=== PATIENT | female | born 1995 | race Caucasian/White ===

== ENCOUNTER → 2018-12-15 12:27 | Outpatient (CLI) | payer BC, SELFPAY ==
[2018-09-29 15:20] VITALS: BMI 20.1
[2018-12-15 13:48] LABS: hCG Titer Quant., Serum 171 mIU/mL (1-3)
== END ==
LOC: PAVLAB 12:28
PROVIDERS: Visit Provider Obstetrics & Gynecology
DX: Z34.90 Encounter for supervision of normal pregnancy, unspecified, unspecified trimester (principal)
CPT/HCPCS: 36415; 84702

== ENCOUNTER → 2018-12-17 12:32 | Outpatient (CLI) | payer BC, SELFPAY ==
[2018-09-29 15:20] VITALS: BMI 20.1
[2018-12-17 13:55] LABS: hCG Titer Quant., Serum 343 mIU/mL (1-3)
== END ==
LOC: PAVLAB 12:34
PROVIDERS: Visit Provider Obstetrics & Gynecology
DX: Z34.90 Encounter for supervision of normal pregnancy, unspecified, unspecified trimester (principal)
CPT/HCPCS: 36415; 84702

== ENCOUNTER → 2019-01-14 11:41 | Outpatient (CLI) | payer BC, SELFPAY ==
[2019-01-14 11:00] VITALS: BMI 20.1
[2019-01-14 13:00] LABS: hCG Titer Quant., Serum 4822 mIU/mL (1-3)
[2019-01-14 16:10] LABS: Chlamydia Trachomatis by PCR Negative (Negative); Neisserai gonorrhoeae by PCR Negative (Negative); Probe Check PASS; Sample Adequacy Control PASS; Specimen Processing Control PASS
[2019-01-20 16:08] LABS: HPV APTIMA, High Risk Negative (Negative)
[2019-01-20 16:09] LABS: HPV Reflexed? YES, CHARGE PATIENT
== END ==
PROVIDERS: Referring Provider Nurse Practitioner Women's Health; Visit Provider Nurse Practitioner Women's Health
DX: O20.0 Threatened abortion (principal); Z12.4 Encounter for screening for malignant neoplasm of cervix
CPT/HCPCS: 36415; 84702; 86850; 86900; 87491; 87591; 87624; 88175; G0145

== ENCOUNTER 2019-10-07 20:33 | Emergency (ER) | payer MEDICAID, SELFPAY ==
[2019-01-21 16:36] VITALS: BMI 20.1
[2019-10-07 20:34] VITALS: BP 132/81; PULSE 100; RESP 18; TEMP 35.8; O2SAT 96; BMI 20.2
--- NOTE | 2019-10-07 20:34 | US_ITS ---
STUDY: FIRST TRIMESTER OBSTETRICAL ULTRASOUND REASON FOR EXAM: Female, 24 years old. Pelvic pain. LMP: Unknown. TECHNIQUE: Transvaginal PRIOR ULTRASOUND: None. FINDINGS: There is no demonstrated intrauterine gestational sac. There is no demonstrated yolk sac. There is no demonstrated embryo ( pole). The uterus measures 7.3 x 5.3 x 4.8 cm. The endometrium measures 1.3 cm. There is no demonstrated uterine fibroid. The cervix is closed. The right ovary measures 2.8 x 2.2 x 1.9 cm. There is no right ovarian cyst. There is no visualized right adnexal mass or complex lesion. The left ovary measures 3.7 x 2.3 x 1.9 cm. There is a 1.9 x 1.7 x 1.6 cm cyst in the left ovary. There is no visualized left adnexal mass or complex lesion. There is small volume fluid in the cul de sac. US/Transvaginal w/Preg US IMPRESSION: No intrauterine gestation identified. No adnexal mass identified. These findings may be due to an early intrauterine gestation, a nonvisualized ectopic or a spontaneous . Follow-up sonography and beta hCG levels are recommended. Left ovarian cyst. Small amount of pelvic free fluid. Electronically Signed: James Diallo, at 21:35 EST Tel , Service support ,
[2019-10-07] MEDS: Ondansetron ODT 4 MG Tablet PO (21:20)
[2019-10-07] MEDS: Acetaminophen 500 MG Tablet 1000 MG PO (21:23)
[2019-10-07] MEDS: Nitrofurantoin Macrocrystals 100 MG Capsule PO (21:23)
--- NOTE | 2019-10-07 21:47 | ED.DCSUM_ITS ---
- ER Visit Summary Date of Service: 10/07/19 Chief Complaint: Pelvic pain History of Present Illness: The patient is a [address] Rui Mclaughlin. She is a G2, P0 whose last menstrual period was September 08. She was seen at another emergency department and had a positive test. She was sent h ere for ultrasound. Patient reports she has pelvic pain that began 2 weeks ago. To continuous waxing and waning pain that she describes as aching. It is 8 out of 10 at worst and 5-10 currently. Is worsened by not urinating. It is relieved by water. Denies any vaginal bleeding or discharge. She is had dysuria and frequency for the past 2 weeks. She denies any fever, chills, or vomiting. Physical Examination: Vitals: Stable. Afebrile. General: Well-nourished and well-developed. Head: Normocephalic atraumatic. Neck: Supple, no lymphadenopathy. No JVD. Nontender. Cardiovascular: Regular rate and rhythm. No murmurs. Respiratory: No respiratory distress. Clear to auscultation bilaterally. Abdominal: Soft, mild suprapubic tenderness to palpation, nondistended, normal bowel sounds. No guarding, rebound, or peritoneal signs. Back: Nontender. Extremities: Nontender, no edema. Skin: Normal color, no rash. Neurologic: Alert and oriented ?3. Cranial nerves II through XII are intact. Normal strength and sensation. Psych: Normal affect. Test Results: Quantitative hCG from the other hospital was 531. Blood type peers be positive. UA from the other hospital shows greater than 100 whites, 13-20 reds, and 6-12 epithelial cells. Clinical Impression(s) from Imaging Studies Obstetrics Ultrasound 10/07/19 20:34 IMPRESSION: No intrauterine gestation identified. No adnexal mass identified. These findings may be due to an early intrauterine gestation, a nonvisualized ectopic or a spontaneous . Follow-up sonography and beta hCG levels are recommended. Left ovarian cyst. Small amount of pelvic free fluid. Electronically Signed: James Diallo, at 21:35 EST Tel , Service support , Emergency Department Course and Treatment: Patient had a urine sent for culture. She was given a dose of Tylenol, Zofran, and Macrobid p.o. She is resting comfortably. Treatment Plan: Patient was discussed with Dr. Rui Mclaughlin. She will be scheduled for a repeat quant in 48 hours. She will get a call from Dr. Rui Mclaughlin regarding the results of this. If this is doubling appropriately the patient will follow-up with Dr. Rui Mclaughlin in 3 to 4 weeks. If it is not doubling she will see her for further evaluation and treatment. Patient be discharged with Zofran and Macrobid. Return to the emergency department for any worsening symptoms. Disposition: To home in improved and stable condition. Impression: 1. UTI. 2. First trimester . This note was generated with [employer] dictation software. It may contain incorrect words, spelling, and punctuation that were not noted in review of the chart prior to signing ED Disposition - Plan for ED Patient: Disposition: Home or Assisted Living Instructions: , New Dx Referrals: Cary Gandara MD [STAFF PHYSICIAN] - Additional Instructions: Follow up with Dr. Gandara in 3-4 weeks.
--- NOTE | 2019-10-08 09:31 | ED.RN ---
CALLED TO [facility]. ZOFRAN 4 MG Q 8 PRN ODT #10 AND MACROBID BID X 7 DAYS NUMBER [id number]
== END 2019-10-07 22:29 | disposition home or self-care (01) ==
LOC: ED 21:42
PROVIDERS: Emergency Provider Emergency Medicine
DX: O23.41 Unspecified infection of urinary tract in pregnancy, first trimester (principal); O34.81 Maternal care for other abnormalities of pelvic organs, first trimester; N83.202 Unspecified ovarian cyst, left side; O99.331 Smoking (tobacco) complicating pregnancy, first trimester; Z3A.00 Weeks of gestation of pregnancy not specified
CPT/HCPCS: 76817; 87086; 87088; 87186; 99283

== ENCOUNTER → 2019-10-10 14:56 | Outpatient (CLI) | payer MEDICAID, SELFPAY ==
[2019-10-07 20:34] VITALS: BMI 20.2
[2019-10-10 16:06] LABS: hCG Titer Quant., Serum 1991 mIU/mL (1-3)
== END ==
PROVIDERS: Visit Provider Emergency Medicine
DX: Z34.90 Encounter for supervision of normal pregnancy, unspecified, unspecified trimester (principal)
CPT/HCPCS: 36415; 84702

== ENCOUNTER → 2019-10-13 16:10 | Outpatient (CLI) | payer MEDICAID, SELFPAY ==
[2019-10-07 20:34] VITALS: BMI 20.2
[2019-10-13 17:25] LABS: hCG Titer Quant., Serum 5722 mIU/mL (1-3)
== END ==
PROVIDERS: Referring Provider Obstetrics & Gynecology; Visit Provider Obstetrics & Gynecology
DX: O20.0 Threatened abortion (principal)
CPT/HCPCS: 36415; 84702

== ENCOUNTER → 2019-11-05 15:37 | Outpatient (CLI) | payer MEDICAID, SELFPAY ==
[2019-11-05 14:17] VITALS: BMI 20.2
[2019-11-05 17:03] LABS: Amphetamine Urine VISTA NEGATIVE (<1000 ng/mL); Barbiturate Urine VISTA NEGATIVE (< 200 ng/mL); Benzodiazepine Urine VISTA NEGATIVE (< 200 ng/mL); Cocaine Urine VISTA NEGATIVE (< 300 ng/mL); Ecstacy Urine VISTA NEGATIVE (< 500 ng/mL); Methadone Urine VISTA NEGATIVE (< 300 ng/mL); PCP Urine VISTA NEGATIVE (< 25 ng/mL); THC Urine VISTA NEGATIVE (< 50 ng/mL); Vista UDS pH Range 8
[2019-11-05 19:34] LABS: Chlamydia Trachomatis by PCR Negative (Negative); Neisserai gonorrhoeae by PCR Negative (Negative); Probe Check PASS; Sample Adequacy Control PASS; Specimen Processing Control PASS
== END ==
PROVIDERS: Referring Provider Obstetrics & Gynecology; Visit Provider Obstetrics & Gynecology
DX: Z34.90 Encounter for supervision of normal pregnancy, unspecified, unspecified trimester (principal)
CPT/HCPCS: 80307; 87077; 87086; 87088; 87186; 87491; 87591

== ENCOUNTER → 2019-11-19 10:06 | Outpatient (CLI) | payer MEDICAID, SELFPAY ==
[2019-11-05 14:17] VITALS: BMI 20.2
[2019-11-19 10:40] LABS: Absolute Lymphocyte Count 2.47 X10^3/uL (0.83-4.51); Absolute Neutrophil Count 4.2 X10^3/uL (2.0-7.7); Basophil# 0.02 X10^3/uL; Basophil% 0.3 % (0-1); Eosinophil# 0.16 X10^3/uL; Eosinophils% 2.2 % (0-5); Hematocrit 35.1 % (37-47); Hemoglobin 12.2 g/dL (12.0-15.0); Lymphocyte # 2.47 X10^3/ul (4.0); Lymphocyte % 33.3 % (19-41); Mean Corp Hgb Conc 34.8 g/dL (32-36); Mean Corpuscular Hgb 30.3 pg (27.0-32.0); Mean Corpuscular Volume 87.3 fL (81-99); Mean Platelet Vol. 10.3 fl (6.2-12.0); Monocyte# 0.51 X10^3/uL; Monocyte% 6.9 % (0-10); NRBC Flagged by Analyzer 0 % (0-5); Neutrophil # 4.23 X10^3/uL (2.7-7.7); Neutrophil % 56.9 % (47-70); Platelet Count 201 K/mm3 (150-450); RBC Distribution Width CV 11.5 % (11.6-14.6); RBC Distribution Width SD 36.9 fl (35.1-43.9); Red Blood Count 4.02 M/mm3 (4.2-5.4); White Blood Count 7.4 K/mm3 (4.4-11.0)
[2019-11-19 12:04] LABS: HIV - WCH Non-Reactive (Nonreactive); Hepatitis B Surface Antigen Non-Reactive (Nonreactive); Hepatitis C Antibody Non-Reactive (Nonreactive); Rubella IgG 40.2 IU/mL
[2019-11-25 23:59] LABS: Rapid Plasmin Reagin (RPR) NONREACTIVE (NONREACTIVE)
== END ==
PROVIDERS: Referring Provider Obstetrics & Gynecology; Visit Provider Obstetrics & Gynecology
DX: Z34.90 Encounter for supervision of normal pregnancy, unspecified, unspecified trimester (principal)
CPT/HCPCS: 36415; 85025; 86592; 86703; 86762; 86803; 86850; 86900; 86901; 87340

== ENCOUNTER → 2020-01-28 | Outpatient (CLI) | payer MEDICAID, SELFPAY ==
[2020-01-28 14:50] VITALS: BMI 20.2
== END | disposition home or self-care (01) ==
LOC: LABSPEC 16:54
PROVIDERS: Referring Provider Obstetrics & Gynecology; Visit Provider Obstetrics & Gynecology
DX: O23.40 Unspecified infection of urinary tract in pregnancy, unspecified trimester (principal); Z3A.00 Weeks of gestation of pregnancy not specified
CPT/HCPCS: 87086; 87088

== ENCOUNTER → 2020-03-24 14:56 | Outpatient (CLI) | payer MEDICAID, SELFPAY ==
[2020-02-25 15:35] VITALS: BMI 20.2
[2020-03-24 15:36] LABS: Absolute Lymphocyte Count 1.88 X10^3/uL (0.83-4.51); Basophil# 0.03 X10^3/uL; Basophil% 0.4 % (0-1); Eosinophil# 0.12 X10^3/uL; Eosinophils% 1.6 % (0-5); Hematocrit 32.2 % (37-47); Hemoglobin 10.7 g/dL (12.0-15.0); Lymphocyte # 1.88 X10^3/ul (4.0); Lymphocyte % 24.4 % (19-41); Mean Corp Hgb Conc 33.2 g/dL (32-36); Mean Corpuscular Hgb 31.2 pg (27.0-32.0); Mean Corpuscular Volume 93.9 fL (81-99); Mean Platelet Vol. 10.7 fl (6.2-12.0); Monocyte# 0.54 X10^3/uL; NRBC Flagged by Analyzer 0 % (0-5); Neutrophil # 5.01 X10^3/uL (2.7-7.7); Platelet Count 165 K/mm3 (150-450); RBC Distribution Width CV 12.7 % (11.6-14.6); Red Blood Count 3.43 M/mm3 (4.2-5.4); White Blood Count 7.7 K/mm3 (4.4-11.0)
[2020-03-24 15:55] LABS: Glucose Challenge Gest 1H 50g 113 mg/dL (70-140)
== END ==
PROVIDERS: Referring Provider Obstetrics & Gynecology; Visit Provider Obstetrics & Gynecology
DX: Z34.90 Encounter for supervision of normal pregnancy, unspecified, unspecified trimester (principal); Z13.1 Encounter for screening for diabetes mellitus
CPT/HCPCS: 36415; 82950; 85025

== ENCOUNTER → 2020-05-20 | Outpatient (CLI) | payer MEDICAID, SELFPAY ==
[2020-05-20 09:32] VITALS: BMI 27.8
== END | disposition home or self-care (01) ==
LOC: LABSPEC 12:54
PROVIDERS: Referring Provider Obstetrics & Gynecology; Visit Provider Obstetrics & Gynecology
DX: Z34.90 Encounter for supervision of normal pregnancy, unspecified, unspecified trimester (principal)
CPT/HCPCS: 87081

== ENCOUNTER → 2020-05-27 14:57 | Outpatient (CLI) | payer MEDICAID, SELFPAY ==
[2020-05-27 13:56] VITALS: BMI 28.5
[2020-05-27 15:13] LABS: Absolute Lymphocyte Count 2.14 X10^3/uL (0.83-4.51); Absolute Neutrophil Count 5.4 X10^3/uL (2.0-7.7); Basophil# 0.02 X10^3/uL; Basophil% 0.2 % (0-1); Eosinophil# 0.12 X10^3/uL; Eosinophils% 1.4 % (0-5); Hematocrit 35.7 % (37-47); Lymphocyte # 2.14 X10^3/ul (4.0); Lymphocyte % 25.4 % (19-41); Mean Corp Hgb Conc 33.6 g/dL (32-36); Mean Corpuscular Hgb 31.4 pg (27.0-32.0); Mean Corpuscular Volume 93.5 fL (81-99); Mean Platelet Vol. 11.9 fl (6.2-12.0); Monocyte# 0.63 X10^3/uL; Monocyte% 7.5 % (0-10); NRBC Flagged by Analyzer 0 % (0-5); Neutrophil # 5.42 X10^3/uL (2.7-7.7); Neutrophil % 64.5 % (47-70); Platelet Count 147 K/mm3 (150-450); RBC Distribution Width CV 12.8 % (11.6-14.6); RBC Distribution Width SD 42.9 fl (35.1-43.9); Red Blood Count 3.82 M/mm3 (4.2-5.4); White Blood Count 8.4 K/mm3 (4.4-11.0)
[2020-05-27 15:23] LABS: Protein, Urine (Random) 23.9 mg/dL (<11.9); Protein:Creat Ratio 159 mg/g CRE (0-200)
[2020-05-27 15:28] LABS: ALB/GLOB Ratio 0.7 RATIO (0.9-2.4); AST(SGOT) 16 U/L (15-37); Alanine Aminotransfer ALT/SGPT 14 U/L (13-56); Albumin, Serum 2.9 g/dL (3.2-5.0); Alkaline Phosphatase 168 U/L (45-117); Anion Gap 7 (5-15); BUN 11 mg/dL (7-18); BUN/Creat Ratio 13.8 RATIO (10-20); Chloride 110 mmol/L (98-107); EST Glomerular Filtration Rate 94 mL/min (>60); Est Glom Filt Rate - Afr Amer 114 mL/min (>60); Globulin 3.9 g/dL (2.2-4.2); Glucose 87 mg/dL (74-106); Protein, Total 6.8 g/dL (6.4-8.2); Sodium Level 142 mmol/L (136-145)
== END ==
LOC: LABSPEC 14:59 → LAB 15:04
PROVIDERS: Referring Provider Obstetrics & Gynecology; Visit Provider Obstetrics & Gynecology
DX: O16.3 Unspecified maternal hypertension, third trimester (principal)
CPT/HCPCS: 36415; 80053; 82570; 84156; 85025

== ENCOUNTER 2020-05-30 13:40 | Outpatient (CLI) | payer MEDICAID, SELFPAY ==
[2020-05-30 14:04] VITALS: BMI 28.9
[2020-05-30 14:44] VITALS: BP 129/79; PULSE 87
[2020-05-30 14:55] VITALS: BP 120/80; PULSE 103
[2020-05-30 14:56] LABS: Protein, Urine (Random) 18.3 mg/dL (<11.9); Protein:Creat Ratio 212 mg/g CRE (0-200)
[2020-05-30 15:06] VITALS: BP 131/83; PULSE 79
--- NOTE | 2020-05-30 15:14 | OB.TRI.PN_ITS ---
Progress Notes Date of Service: 05/30/20 Progress Note: Patient presents for triage evaluation secondary to elevated bp in office. repeats all normal in triage no proteinuria. FHT: 130 Moderate variability reactive no decelerations category I tracing [place]: no regular Contractions Assessment and plan: elevated bps in - repeats normal, fu end of the week in the office. Reactive NST, reassuring maternal and status patient discharged to home . See problem list details for additional plan information. Laboratory Studies: Laboratory Tests 05/30/20 Range/Units 14:35 U Random Total Protein 18.3 H (<11.9) mg/dL Urine Creatinine 86.20 (NO RANGE EST.) mg/dL Protein/Creatinin Ratio 212 H (0-200) mg/g CRE - Problem List (1) Elevated blood pressure affecting in third trimester, antepartum Status: Acute Comment: 05/30-bp elevated in office but all WNL upon monitoring in triage. neg proteinuria. fu end of the week. Multi Select Codes - Urinary/Genital Urinary/Genital CPT Codes: 89557-67 non-stress test Interp
== END 2020-05-30 15:20 | disposition home or self-care (01) ==
PROVIDERS: Referring Provider Obstetrics & Gynecology; Visit Provider Obstetrics & Gynecology
DX: O26.90 Pregnancy related conditions, unspecified, unspecified trimester (principal); R03.0 Elevated blood-pressure reading, without diagnosis of hypertension; Z3A.00 Weeks of gestation of pregnancy not specified
CPT/HCPCS: 59025; 59050; 82570; 84156; 99218; G0378

== ENCOUNTER 2020-06-02 11:35 | Outpatient (CLI) | payer MEDICAID, SELFPAY ==
[2020-06-02] VITALS (11 sets, daily range): BP systolic 117–128; BP diastolic 73–81; PULSE 76–100; TEMP 36.8; O2SAT 98; BMI 19.2; BMI 28.8
[2020-06-02] MEDS: Acetaminophen 500 MG Tablet 1000 MG PO (12:21)
[2020-06-02 12:34] LABS: Hematocrit 35.2 % (37-47); Hemoglobin 11.7 g/dL (12.0-15.0); Mean Corp Hgb Conc 33.2 g/dL (32-36); Mean Corpuscular Hgb 30.9 pg (27.0-32.0); Mean Corpuscular Volume 92.9 fL (81-99); Mean Platelet Vol. 12.6 fl (6.2-12.0); Platelet Count 137 K/mm3 (150-450); RBC Distribution Width CV 12.4 % (11.6-14.6); RBC Distribution Width SD 42.2 fl (35.1-43.9); Red Blood Count 3.79 M/mm3 (4.2-5.4); White Blood Count 7.6 K/mm3 (4.4-11.0)
[2020-06-02 12:50] LABS: AST(SGOT) 21 U/L (15-37); Alanine Aminotransfer ALT/SGPT 21 U/L (13-56); Creatinine, Serum 0.62 mg/dL (0.55-1.02); EST Glomerular Filtration Rate 125 mL/min (>60); Est Glom Filt Rate - Afr Amer 152 mL/min (>60); Estimated Creatinine Clearance 110.66 ml/min; Uric Acid 4.7 mg/dL (2.6-6.0)
[2020-06-02 12:58] LABS: Protein, Urine (Random) 18.6 mg/dL (<11.9); Protein:Creat Ratio 310 mg/g CRE (0-200)
--- NOTE | 2020-06-02 13:08 | US_ITS ---
STUDY: SECOND AND THIRD TRIMESTER OBSTETRICAL ULTRASOUND REASON FOR EXAM: Female, 25 years old growth LMP: 09/08/2019 TECHNIQUE: Transabdominal TECHNICAL QUALITY: Adequate. PRIOR ULTRASOUND: None. FINDINGS: There is a single intrauterine fetus. The fetus is in a cephalic presentation. There is demonstrated cardiac activity with a heart rate of 129 bpm. There is a normal amniotic fluid volume. The largest amniotic fluid pocket measures 3.4 cm. The amniotic fluid index (NASIR) is 8.5 cm. The placenta is anterior in location and is not low lying. There are Grade 1 placental changes. The cervix measures 4.5 cm in length. The adnexal regions are not visualized. BIOMETRY: BPD: 9.37 cm: 38 weeks, 1 days HC: 33.99 cm: 39 weeks, 1 days AC: 37.03 cm: 41 weeks, 0 days FL: 7.5 cm: 38 weeks, 3 days CI: 80% FL/BPD: 80% FL/HC: FL/AC: 20% HC/AC: 0.92 age by current US: 39 weeks, 2 days. WAYLON by current US: 06/07/2020. Estimated weight: 3907 grams, +/- 570 grams, 93 %. Age by LMP: 38 weeks, 2 days. WAYLON by LMP: 06/14/2020. US/OB Limited With Biometrics IMPRESSION: Single live uterine gestation with a mean gestational age of 39 weeks and 2 days. Electronically Signed: Nas Faulkner, at 15:26 EDT , Service support ,
== END 2020-06-02 15:40 | disposition home or self-care (01) ==
PROVIDERS: Referring Provider Obstetrics & Gynecology; Visit Provider Obstetrics & Gynecology
DX: O16.3 Unspecified maternal hypertension, third trimester (principal); Z3A.39 39 weeks gestation of pregnancy
CPT/HCPCS: 36415; 59025; 59050; 76816; 82565; 82570; 84156; 84450; 84460; 84550; 85027; 99218; G0378

== ENCOUNTER 2020-06-03 14:53 | Outpatient (CLI) | payer MEDICAID, SELFPAY ==
[2020-06-02 12:05] VITALS: BMI 28.8
[2020-06-03] VITALS (7 sets, daily range): BP systolic 117–131; BP diastolic 74–85; PULSE 82–94; TEMP 37.1; O2SAT 98; BMI 28.9
[2020-06-03 15:21] LABS: Hematocrit 34.6 % (37-47); Hemoglobin 11.7 g/dL (12.0-15.0); Mean Corp Hgb Conc 33.8 g/dL (32-36); Mean Corpuscular Hgb 31.2 pg (27.0-32.0); Mean Corpuscular Volume 92.3 fL (81-99); Mean Platelet Vol. 12.3 fl (6.2-12.0); Platelet Count 132 K/mm3 (150-450); RBC Distribution Width CV 12.6 % (11.6-14.6); RBC Distribution Width SD 41.8 fl (35.1-43.9); Red Blood Count 3.75 M/mm3 (4.2-5.4); White Blood Count 6.9 K/mm3 (4.4-11.0)
[2020-06-03 15:47] LABS: AST(SGOT) 16 U/L (15-37); Alanine Aminotransfer ALT/SGPT 16 U/L (13-56); Creatinine, Serum 0.64 mg/dL (0.55-1.02); EST Glomerular Filtration Rate 121 mL/min (>60); Est Glom Filt Rate - Afr Amer 146 mL/min (>60); Uric Acid 4.8 mg/dL (2.6-6.0)
[2020-06-03 16:24] LABS: Protein, Urine (Random) 25.2 mg/dL (<11.9); Protein:Creat Ratio 175 mg/g CRE (0-200)
--- NOTE | 2020-06-03 17:55 | OB.TRI.PN ---
Progress Notes Date of Service: 06/03/20 Progress Note: Patient presents for triage evaluation secondary to elevated blood pressures. Patient reports blood pressures have become increasingly elevated at home. Denies headaches, blurred vision, right upper quadrant, epigastric pain. Blood pressures all normotensive while in triage. Preeclampsia labs negative. Urine protein to creatinine negative which is a change from her last protein to creatinine ratio which was slightly elevated. FHT: Moderate variability reactive no decelerations category I tracing [place]: Irregular contractions Assessment and plan: Reactive NST, reassuring maternal and status patient discharged to home to follow-up in the office on Saturday. See problem list details for additional plan information. Laboratory Studies: Laboratory Tests 06/03/20 06/03/20 06/03/20 Range/Units 15:40 15:10 15:10 WBC 6.9 (4.4-11.0) K/mm3 RBC 3.75 L (4.2-5.4) M/mm3 Hgb 11.7 L (12.0-15.0) g/dL Hct 34.6 L (37-47) % MCV 92.3 (81-99) fL MCH 31.2 (27.0-32.0) pg MCHC 33.8 (32-36) g/dL RDW Std Deviation 41.8 (35.1-43.9) fl RDW Coeff of Cosme 12.6 (11.6-14.6) % Plt Count 132 L (150-450) K/mm3 MPV 12.3 H (6.2-12.0) fl Creatinine 0.64 (0.55-1.02) mg/dL Estim Creat Clear Calc 107.20 ml/min Est GFR (MDRD) Af Amer 146 (>60) mL/min Est GFR (MDRD) Non-Af 121 (>60) mL/min Uric Acid 4.8 (2.6-6.0) mg/dL AST 16 (15-37) U/L ALT 16 (13-56) U/L U Random Total Protein 25.2 H (<11.9) mg/dL Urine Creatinine 144.00 (NO RANGE EST.) mg/dL Protein/Creatinin Ratio 175 (0-200) mg/g CRE - Problem List (1) Elevated blood pressure affecting in third trimester, antepartum Status: Acute Comment: mildly elevated in office but nl at home and in triage- repeat triage evaluation 06/02. preeclampsia precautions reviewed. Multi Select Codes - Urinary/Genital Urinary/Genital CPT Codes: 77558-04 non-stress test Interp
== END 2020-06-03 16:40 | disposition home or self-care (01) ==
LOC: WPOUT 14:54 → OBT 14:54
PROVIDERS: Referring Provider Obstetrics & Gynecology; Visit Provider Obstetrics & Gynecology
DX: O75.89 Other specified complications of labor and delivery (principal); R03.0 Elevated blood-pressure reading, without diagnosis of hypertension; Z3A.00 Weeks of gestation of pregnancy not specified
CPT/HCPCS: 36415; 59025; 59050; 82565; 82570; 84156; 84450; 84460; 84550; 85027; 99218; G0378

== ENCOUNTER 2020-06-06 00:55 | Inpatient (IN) | payer MEDICAID, SELFPAY ==
[2020-06-03 15:32] VITALS: BMI 28.9
[2020-06-05 23:37] VITALS: BP 140/89; PULSE 93
[2020-06-05 23:38] VITALS: TEMP 36.8
[2020-06-05] MEDS: Lactated Ringers 1,000 ML 50 ML IV (23:45)
[2020-06-05 23:52] VITALS: BP 123/83; PULSE 102
[2020-06-05 23:53] VITALS: BP 127/85; PULSE 93
[2020-06-05 23:54] LABS: Hematocrit 33.9 % (37-47); Hemoglobin 11.6 g/dL (12.0-15.0); Mean Corp Hgb Conc 34.2 g/dL (32-36); Mean Corpuscular Hgb 31.9 pg (27.0-32.0); Mean Corpuscular Volume 93.1 fL (81-99); Mean Platelet Vol. 12.1 fl (6.2-12.0); Platelet Count 143 K/mm3 (150-450); RBC Distribution Width CV 12.5 % (11.6-14.6); RBC Distribution Width SD 42.8 fl (35.1-43.9); Red Blood Count 3.64 M/mm3 (4.2-5.4); White Blood Count 7.1 K/mm3 (4.4-11.0)
[2020-06-05 23:56] VITALS: BMI 29.5
[2020-06-06] VITALS (53 sets, daily range): BP systolic 110–152; BP diastolic 64–95; PULSE 66–127; RESP 14–18; TEMP 36–37.3; O2SAT 97–99
[2020-06-06 00:05] LABS: Protein, Urine (Random) 21.7 mg/dL (<11.9); Protein:Creat Ratio 250 mg/g CRE (0-200); Prothrombin Time (Protime)PT. 12.4 SECONDS (11.7-14.9)
[2020-06-06 00:06] LABS: Partial Thromboplast Time 25.8 Seconds (24.1-36.2)
[2020-06-06 00:09] LABS: AST(SGOT) 16 U/L (15-37); Alanine Aminotransfer ALT/SGPT 21 U/L (13-56); Creatinine, Serum 0.72 mg/dL (0.55-1.02); EST Glomerular Filtration Rate 106 mL/min (>60); Est Glom Filt Rate - Afr Amer 129 mL/min (>60); Estimated Creatinine Clearance 95.29 ml/min; Uric Acid 4.5 mg/dL (2.6-6.0)
--- NOTE | 2020-06-06 00:49 | PCM.HPOB.BLA ---
- Problem List (1) Gestational hypertension Status: Acute (2) Anemia affecting Status: Acute Comment: iron supplement, repeat CBC end of april (3) PUPP (pruritic urticarial papules and plaques of ) Status: Acute Comment: steroid cream PRN (4) Status: Acute Qualifiers: Comment: NIPT- low risk. Carrier negative . BF Wvtuz-4-Sfnietqpqsj negative. declined ntd screening. nl anatomy (5) Supervision of normal Status: Acute Qualifiers: Comment: PRR WAYLON 06/14/20 boy Beck BF Jamir (6) UTI in Status: Acute Comment: x 2, recommend daily prophylaxis. keflex ordered 12/17. needs repeat culture. ?recurrent yeast infections- clotrimazole ordered. History and Physical Date of Admission: 06/06/20 Intake Vital Signs 06/02/20 Height 6 ft 4 in 06/02/20 Weight: 158 lb Intake Visit Reasons: 38 WK OB Chief Complaint: est ob Prototype Fabricator Required: No Is patient in pain?: No Allergies No Known Allergies Allergy (Verified 06/02/20 11:08) Medications promethazine 12.5 mg tablet 12.5 mg PO Q6H PRN #60 tab 01/14/19 Rx Confirmed 06/02/20 vitamin#30 30 mg iron-10 mg iron-folic acid 1 mg-omg3 capsule 1 cap PO DAILY 11/05/19 history Confirmed 06/02/20 clotrimazole 2 % vaginal cream 1 appful VAGINAL QHS 7 Days #21 g 01/28/20 Rx Confirmed 06/02/20 loratadine 10 mg tablet 10 mg PO DAILY 01/28/20 history Confirmed 06/02/20 cephalexin 250 mg capsule 250 mg PO Q12H 04/20/20 history Confirmed 06/02/20 Last Menstral Period: 11/18/18 Zika: Zika virus screening: Negative : No PFSH PFSH Medical History History of anxiety (Acute) History of depression (Acute) Family History Grandmother Diabetes Breast cancer Grandfather Diabetes Levja-8-elxwqhtehir deficiency Social History (Updated 06/02/20 @ 11:[address] Cary Jackson MD) Smoking Status: Current every day smoker Electronic Cigarette Use: with nicotine alcohol intake: never substance use type: does not use caffeine: Yes (rarely) what type of physical activity do you participate in: walking, other details: 20,000 steps per day seatbelt use: always do you feel safe at home: Yes additional social history: Boyfriend-Gerardo Goodson Patient works at [employer] Pregancy History 2 Elective abortions Hx Para 0 Spontaneous abortions 1 Hx # Term Pregnancies Ectopic pregnancies Hx # Pregnancies Multiple births # of living children 0 HPI 38 WK OB: Details: ELIANA GUILLEN is a 25 year old G2, P0 at 38 weeks 6 days presents with elevated blood pressures 140s to 160s over 80s at home headache and blurry vision in the left eye. Upon evaluation patient does not have any clonus and repeat blood pressures are in the 130s over 80s. Headache is intermittent. Patient has been evaluated closely the last week due to rising blood pressures. Over the last 3 days blood pressures have been consistently elevated at home and therefore she presented to triage for evaluation. OB Visit WAYLON Calculator Estimated Delivery Date Method Current WG Current Estimate 06/14/20 LMP (Certain) 38w 2d Expected Delivery Route/Plan Labor Preferences- CB/BF classes: took online labor support person: Jamir labor intervention preferences: no specifics. pain management options preferred: likely planning epidural cut cord/dad catch: yes : yes PP control planned: NFP discussed possible routes of delivery and associated risks: discussed possible delivery modalities and possible indications for each including R/B/A of , VAVD, and CS. questions answered. special requests: none Specific Issue/Plans flu vaccine: declines tdap vaccine: given 03/24 rhogam: na LARC form signed: declines movement and labor precautions reviewed. Problem list reviewed and updated with the most current plan of care details and appropriate orders placed. Relevant counseling for the gestational age provided. Continue routine care and follow up unless otherwise noted in visit notes/problem list details Initial Weight: 108 lb Date EGA Weight BP Urine Prot Glucose FHR FuHt Pres Dilation Effaced St Visit Note 12/18/19 14w 3d 110 lb (+2 lb) 106/60 Negative Negative 145 SM- no vb lof no regular ctx 01/28/20 20w 2d 119 lb (+11 lb) 118/76 150 SM- no vb lof no regular ctx had anatomy 02/25/20 24w 2d 127 lb 8 oz (+19 lb 8 oz) 118/78 Negative Negative 150 SM- no vb lof good fm no regular ctx 03/24/20 28w 2d 133 lb (+25 lb) 120/84 145 28 SM- no vb lof good fm no regular ctx discussed anemia. co some hemorrhoids, discussed scheudling childbirth classes 04/08/20 30w 3d 139 lb 2 oz (+31 lb 2 oz) 112/72 Negative Negative 140 30 SM- no vb lof good f mno regular ctx 04/20/20 32w 1d 141 lb 4 oz (+33 lb 4 oz) 124/78 Negative Negative 140 32 GP - no LOF, VB, DFM, ctx. Discussed childbirth classes. Discussed finding Peds. 05/06/20 34w 3d 145 lb (+37 lb) 122/82 Negative Negative 135 34 SM- no vb lof good fm no regular ctx started with an abdominal rash discussed supportive care 05/20/20 36w 3d 152 lb 4 oz (+44 lb 4 oz) 122/80 Negative Negative 140 36 Cephalic 0 SM- no vb of good fm no regular ctxgbs collected 05/27/20 37w 3d 156 lb 6 oz (+48 lb 6 oz) 130/92 Negative Negative 140 37 Cephalic 0 GP - no LOF, VB, DFM, ctx. BP elevated. Asymptomatic. Labs ordered. BP check saturday if labs normal. Precautions reviewed. 05/30/20 37w 6d 148/90 GP - BP check only. Patient sent to triage for elevated BP. 06/02/20 38w 2d 158 lb (+50 lb) Trace Negative 38 Cephalic 0 SM- nl bps at home but borderline elevated here, to triage for evaluation. had nl protein level saturday, trace today. reveiwed precautions and if negative evaluation recommend twice weekly visits and home bp monitoring ACOG First Trimester First Trimester: Desire for , Alcohol, Tobacco Cessation, Illicit/Recreational Drug/Substance Use, Intimate Partner Violence, Barriers to care, Unstable Housing, Communication Barriers, Environmental/Work Hazards, Anticipated Course of Care, Toxoplasmosis Precations, Use of Any medications, Sexual activity, Exercise, Dental Care, Sauna/Hot tub use, Seat Belt use, Childbirth classes/Hospital facilities, Travel, Indications for US and Screening for Aneuploidy; discussed Diagnostics Diagnostics Diagnostics Glucose 1 Hr 50 gm 113 mg/dL (70-140) 03/24/20 Hgb 12.0 g/dL (12.0-15.0) 05/27/20 Hct 35.7 % (37-47) L 05/27/20 Details: HIV: Urine Culture: Sequential Screen: NIPT Screen: ROS Const Reports system reviewed and no additional complaints, except as documented Card Reports system reviewed and no additional complaints, except as documented Resp Reports system reviewed and no additional complaints, except as documented GI Reports system reviewed and no additional complaints, except as documented, Reports nausea Reports system reviewed and no additional complaints, except as documented Musc Reports system reviewed and no additional complaints, except as documented all other systems reviewed and negative Exam Const General: cooperative, healthy appearing, comfortable HENMT Head: normal to inspection Nose: external nose normal Face and sinus: normal facial exam Neck Neck: normal visual inspection, full ROM, no lymphadenopathy Thyroid: thyroid normal Chest Chest palpation & inspection: normal inspection of the chest Resp Effort & Inspection: normal respiratory effort GI Inspection: normal to inspection Palpation: soft, other (gravid uterus) Other: vertex and large size for gestational age- approx 3900g on US saturday Other: Cervical Exam: 1.5/40/-4 Extrem General: pedal edema Results POC Urinalysis 2 Dip (Clinic) Office Urine Glucose Negative Last Edit by Pat Kern on 06/02/20 11:15 Office Urine Protein Trace Last Edit by Pat Kern on 06/02/20 11:15 Assessment & Plan Problems 1. Elevated blood pressure affecting in third trimester, antepartum O16.3 mildly elevated in office but nl at home and in triage- repeat triage evaluation 06/02. preeclampsia precautions reviewed. 2. 37 weeks gestation of Z3A.37 covid testing ordered 05/25/20c 3. PUPP (pruritic urticarial papules and plaques of ) O26.86 steroid cream PRN 4. Anemia affecting O99.019 iron supplement, repeat CBC end of april 5. UTI in O23.40 x 2, recommend daily prophylaxis. keflex ordered 12/17. needs repeat culture. ?recurrent yeast infections- clotrimazole ordered. 6. Supervision of normal Z34.90 PRR WAYLON 06/14/20 boy Beck BF Jamir 7. Z34.90 NIPT- low risk. Carrier negative . BF Wlokk-9-Zltwbjgpbgu negative. declined ntd screening. nl anatomy 25-year-old G2, P0 at 38 weeks 6 days presents with gestational hypertension, increasing bps at home and symptomatic plan IOL, plan management for with Cytotec and then Pitocin Pain management: Plans epidural. GBS negative. Management of any complications: Gestational hypertension, labs stable. Monitor blood pressures. start magnesium sulfate and HTN protocol if develops severe range pressures. I have reviewed the [facility] and made any clinically relevant updates. Orders Orders: POC Urinalysis 2 Dip (Clinic) Today Protein+Creatinine Ratio,Urine Today O16.3 Coding Level of Care Code Off vis,est,level 3 Diagnoses Elevated blood pressure affecting in third trimester, antepartum O16.3 37 weeks gestation of Z3A.37 PUPP (pruritic urticarial papules and plaques of ) O26.86 Anemia affecting O99.019 UTI in O23.40 Supervision of normal Z34.90 Z34.90
[2020-06-06] MEDS: miSOPROStol 25 MCG TABLET PO (01:33)
[2020-06-06] MEDS: Acetaminophen 325 MG Tablet PO (02:22)
[2020-06-06] MEDS: miSOPROStol 50 MCG TABLET PO (05:26)
[2020-06-06] MEDS: Oxytocin 30 units/NS 500 ml 30 UNITS/500 ML IV.SOLN IV (11:34)
[2020-06-06] MEDS: 0.9% Normal Saline Single 100 ML IV.SOLN. IY (12:23)
[2020-06-06] MEDS: Lactated Ringers 500 ML 999 ML IV ×2 (13:15→16:50)
[2020-06-06] MEDS: fentaNYL-bupivacaine (epidural) 100 ML BAG EPIDURAL (13:51)
[2020-06-06] MEDS: Lactated Ringers 1,000 ML 200 ML IV (14:27)
--- NOTE | 2020-06-06 16:29 | PN_ITS ---
Progress Note patient comfortable with epidural, doing well current tracing: overall reassuring FHT: 130 Moderate variability reactive 2 periodic mild variable decelerations after clear AROM, category II tracing position change [place]: q 2-3 Contractions reviewed tracing abnormalities since last note: cat I-II overall reassuring A/P: s/p position change, resolved to early decel. continue exp management pit per protocol STROKE Vital Signs/Narrative: Vital Signs Temp Pulse BP 06/06/20 15:59 97.9 F 69 130/78 H 06/06/20 14:56 66 130/79 H 06/06/20 14:31 85 123/73 H 06/06/20 14:27 78 126/76 H 06/06/20 14:22 71 128/70 H 06/06/20 14:17 83 117/64 06/06/20 14:15 95 128/70 H 06/06/20 14:12 93 136/80 H 06/06/20 14:06 95 129/76 H 06/06/20 14:05 97.9 F 06/06/20 14:01 103 H 130/78 H 06/06/20 14:00 90 129/74 H 06/06/20 13:57 84 132/75 H 06/06/20 13:52 87 137/83 H 06/06/20 13:47 92 139/86 H 06/06/20 13:41 90 145/88 H 06/06/20 13:37 85 152/90 H 06/06/20 13:10 78 136/83 H
[2020-06-06] MEDS: Cefazolin 2 GM in 0.9% Normal Saline 100 ML IV (17:11)
--- NOTE | 2020-06-06 17:22 | RAD_ITS ---
STUDY: X-RAY - ABDOMEN/PELVIS REASON FOR EXAM: Female, 25 years old. Post , surgery instrument count was not done. TECHNIQUE: Single AP view of the abdomen / pelvis. COMPARISON: None. FINDINGS: Gas-filled loops of small bowel. Large pelvic mass probably representing a uterus. No radiodense foreign bodies. The visualized liver, spleen and kidneys are grossly normal in size and morphology. Normal soft tissue structures. Normal visualized osseous structures. RAD/Abdomen Single View (Portable) IMPRESSION: Ileus. No retained instruments noted within the [id number]. Electronically Signed: Reji Elias MD at 19:59 EST , Service support ,
--- NOTE | 2020-06-06 17:45 | OP.PCM_ITS ---
Problem List (1) Gestational hypertension Status: Acute (2) Anemia affecting Status: Acute Comment: iron supplement, repeat CBC end of april (3) PUPP (pruritic urticarial papules and plaques of ) Status: Acute Comment: steroid cream PRN (4) Status: Acute Qualifiers: Comment: NIPT- low risk. Carrier negative . BF Msgki-5-Znvrwvugvrr negative. declined ntd screening. nl anatomy (5) Supervision of normal Status: Acute Qualifiers: Comment: PRR WAYLON 06/14/20 boy Beck BF Jamir (6) UTI in Status: Acute Comment: x 2, recommend daily prophylaxis. keflex ordered 12/17. needs repeat culture. ?recurrent yeast infections- clotrimazole ordered. Delivery Classification: Stat refractory repairer: Diane Franco justine Type of Anesthesia:: Epidural Special Medications: none Implants Used: none Date of Procedure: 06/06/20 Pre-Operative Diagnosis: iol GHTN, cord prolapse Post-Operative Diagnosis: same Description of Procedure: 25-year-old G2, P0 at 38 weeks 6 days presented for induction of labor secondary to gestational hypertension. Patient underwent Cytotec then Schmitz bulb and Pitocin induction. Artificial rupture membranes for clear fluid. Patient developed recurrent periodic variables and underwent different position changing and then approximately 40 minutes after rupture of membranes patient was checked and noted to have a loop of cord prolapsing into the vagina therefore a stat was recommended and performed. Epidural had already been placed and found to be adequate. Schmitz catheter prsent. The patient was placed in the dorsal supine position with leftward tilt. Patient was prepped and draped with splash betadine prep due to acuity of situation. Pfannenstiel skin incision was made with the scalpel and carried through to the underlying layer of fascia with the scalpel. Fascia was nicked in the midline and the incision extended laterally. The peritoneum was entered digitally. The incision was stretched and a low transverse uterine incision was made with the scalpel. The infant's head was delivered atraumatically followed by the anterior and posterior shoulders without complication the rest of the delivered. The cord was clamped and cut and the infant was handed off to awaiting nurse. The placenta was delivered spontaneously immediately following and was noted to be intact and have a three-vessel cord. The uterus was exteriorized cleared of all clots and debris, and the incision was closed in a double layer closure using #1 Monocryl. The ovaries and fallopian tubes were noted to be within normal limits. The uterus was returned to the maternal abdomen and gutters were cleared of all clots and debris. The peritoneum was closed with 3-0 Monocryl in a running fashion. Gloves were changed prior to fascial closure. Fascia was closed with 0 PDS in a running fashion. Subcutaneous tissue was copiously irrigated and the skin was closed with 3-0 Monocryl in a subcuticular fashion. Mepilex dressing was applied without complication. Counts were correct but x-ray was performed due to acuity of the situation and no precount. Patient was taken to recovery in stable condition. It was discussed with the patient that based on the clinical information obtained during this encounter, combined with her history, at this time I would recommend vaginal or cesareans for future deliveries if further pregnancies are desired. Amniotic Membrane Rupture Type: Artificial Amniotic Fluid Description: Clear Placenta Disposition: [facility] Cord Entanglement: Around neck x 1, loose, - - Funic presentation, cord around the arm twice Cord Vessel Description: 3 Vessels Esitmated Blood Loss (ml): 700 Gender: Male (1 minute): 9 (5 minute): 9 Delayed cord clamping: Yes Antibiotic Given: Ancef 2 grams IV x1, Zithromax 500 mg/5 mL X1 Pt instructed on risks of surgery: Bleeding, Anesthesia Risks, Infection, Injury to surrounding structure(s) including bowel and bladder Complications: None - Admit VTE Documentation VTE Present on Admission: No VTE Mechan Device Prophylaxis: SCD's Multi Select Codes - Urinary/Genital Urinary/Genital CPT Codes: 10596 delivery+PP Care([facility])
[2020-06-06] MEDS: Oxytocin 30 units/NS 500 ml 30 UNITS/500 ML IV.SOLN 167 UNITS IV (18:00)
--- NOTE | 2020-06-06 18:30 | NURSING ---
Pt currently postop and not out of bed yet
--- NOTE | 2020-06-06 19:42 | NURSING ---
Stat C/S for prolapse cord
[2020-06-06] MEDS: Acetaminophen 500 MG Tablet 1000 MG PO (19:52)
[2020-06-06] MEDS: Lactated Ringers 1,000 ML 100 ML IV (21:01)
[2020-06-06] MEDS: Ketorolac 30 MG/ML Syringe IV (23:50)
[2020-06-07] VITALS (7 sets, daily range): BP systolic 109–133; BP diastolic 58–83; PULSE 84–103; RESP 16–18; TEMP 36.4–36.8; O2SAT 97–98
[2020-06-07] MEDS: Acetaminophen 500 MG Tablet 1000 MG PO ×4 (01:53→19:58)
--- NOTE | 2020-06-07 02:57 | NURSING ---
This RN assuming care of mother and infant at this time. Received report from Machelle Dill RN.
[2020-06-07 04:56] LABS: Hematocrit 27.4 % (37-47); Hemoglobin 9.3 g/dL (12.0-15.0); Mean Corp Hgb Conc 33.9 g/dL (32-36); Mean Corpuscular Hgb 31.8 pg (27.0-32.0); Mean Corpuscular Volume 93.8 fL (81-99); Mean Platelet Vol. 11.7 fl (6.2-12.0); Platelet Count 123 K/mm3 (150-450); RBC Distribution Width CV 12.6 % (11.6-14.6); RBC Distribution Width SD 43.3 fl (35.1-43.9); Red Blood Count 2.92 M/mm3 (4.2-5.4); White Blood Count 10.3 K/mm3 (4.4-11.0)
[2020-06-07] MEDS: Ketorolac 30 MG/ML Syringe IV ×3 (05:53→17:48)
[2020-06-07] MEDS: 0.9% Saline Lock 10 ML Syringe IV ×3 (05:53→17:48)
[2020-06-07] MEDS: Senna/Docusate Sodium 1 Tablet PO (07:48)
--- NOTE | 2020-06-07 07:51 | PCM.PN.OB ---
Patient Problems: Active and Suspected Problems (Last Reviewed 06/02/20 @ 11:08 by Pat Kern) Gestational hypertension (Acute) PUPP (pruritic urticarial papules and plaques of ) (Acute) steroid cream PRN Anemia affecting (Acute) iron supplement, repeat CBC end of april UTI in (Acute) x 2, recommend daily prophylaxis. keflex ordered 12/17. needs repeat culture. ?recurrent yeast infections- clotrimazole ordered. Supervision of normal (Acute) PRR WAYLON 06/14/20 boy Beck Bowie (Acute) NIPT- low risk. Carrier negative . BF Jemny-6-Loeyxhujnta negative. declined ntd screening. nl anatomy Subjective: Patient doing well without complaints. Tolerating PO. Has been up in chair. Schmitz cath recently removed. feeding well. Denies chest pain, shortness of breath, calf pain/swelling, fevers, chills, lightheadedness. Pain controlled - Physical Exam Vitals/I&O's: Vital Signs Temp Pulse Resp BP Pulse Ox 98.2 F 103 H 18 116/74 98 06/07/20 04:35 06/07/20 04:35 06/07/20 04:35 06/07/20 04:35 06/07/20 04:35 Oxygen Delivery Method Room Air Weight: 161 lb 2.526 oz Body Mass Index (BMI) 29.5 Intake and Output for Last 24 Hours 06/05/20 06/06/20 06/07/20 23:59 23:59 23:59 Intake Total 3902.26 / 3902.26 1086.67 / 1086.67 Output Total 2049 / 2049 350 / 350 Balance 1852.26 / 1852.26 736.67 / 736.67 General: Oriented x3 Abdomen: Soft, Non-Distended, - - Dressing dry and intact. FF below U. Appropriately tender Microbiology Past 72 Hours 06/06/20 02:30 Mucosa - Nose - Final Laboratory Results 06/07/20 04:47: WBC 10.3, RBC 2.92 L, Hgb 9.3 L, Hct 27.4 L, MCV 93.8, MCH 31.8, MCHC 33.9, RDW Std Deviation 43.3, RDW Coeff of Cosme 12.6, Plt Count 123 L, MPV 11.7 Current Medications Acetaminophen (Acetaminophen 500 Mg Tablet) 1,000 mg PO Q6H WILFREDO Last Admin: 06/07/20 01:53 Dose: 1,000 mg Documented by: Bisacodyl (Bisacodyl 10 Mg Suppository) 10 mg RECTAL UD PRN PRN Reason: If no BM Diphenhydramine HCl (Diphenhydramine 25 Mg Capsule) 25 mg PO Q6H PRN PRN PRN Reason: ITCHING Stop: 06/07/20 18:16 Hydrocortisone (Hydrocortisone 2.5% Crm) 1 applic TOPICAL TID PRN PRN; Protocol PRN Reason: Discomfort Ketorolac Tromethamine (Ketorolac 30 Mg/Ml Syringe) 30 mg IV Q6H WILFREDO Stop: 06/07/20 18:01 Last Admin: 06/07/20 05:53 Dose: 30 mg Documented by: Nalbuphine HCl (Nalbuphine 10 Mg/Ml Ampul) 5 mg IV Q3H PRN PRN PRN Reason: ITCHING Stop: 06/07/20 18:16 Naloxone HCl (Naloxone 0.4 Mg/Ml Syringe) 0.02 mg IV Q1M PRN PRN Reason: RR <10 and pt unresponsive Naproxen (Naproxen 250 Mg Tablet) 500 mg PO Q8H WILFREDO Ondansetron HCl (Ondansetron 4 Mg/2 Ml Vial) 4 mg IV Q4H PRN PRN PRN Reason: Nausea Oxycodone HCl (Oxycodone 5 Mg Tablet) 5 - 10 mg PO Q4H PRN PRN PRN Reason: Pain Score 4-10 Prochlorperazine Edisylate (Prochlorperazine 10 Mg/2 Ml Vial) 10 mg IV Q6H PRN PRN PRN Reason: NAUSEA Senna/Docusate Sodium (Senna/Docusate Sodium 1 Tablet) 0 tablet PO DAILY WILFREDO Simethicone (Simethicone 80 Mg Tablet) 80 mg PO PCHS PRN PRN Reason: Indigestion/stomach pain Last Admin: 06/07/20 05:57 Dose: 80 mg Documented by: Sodium Chloride (0.9% Saline Lock 10 Ml Syringe) 5 - 15 ml IV UD PRN PRN Reason: SALINE FLUSH Last Admin: 06/07/20 05:53 Dose: 5 ml Documented by: Medical Necessity - Tobacco Use Smoking Status: Former smoker Assessment/Plan All Active Problems (Last Reviewed 06/02/20 @ 11:08 by Pta Kern) Gestational hypertension (Acute) Elevated blood pressure affecting in third trimester, antepartum (Acute) 37 weeks gestation of (Acute) PUPP (pruritic urticarial papules and plaques of ) (Acute) Anemia affecting (Acute) UTI in (Acute) Supervision of normal (Acute) (Acute) Nausea/vomiting in (Resolved) (Resolved) Supervision of normal first (Resolved) s/p LTCS PPD # 1 1. routine post care 2. breast feeding- support given 3. rh positive 4. rubella immune
--- NOTE | 2020-06-07 14:05 | NURSING ---
pt has voided twice since 8am, but has only had a total of 150cc. Passed a golf ball size clot. Encouraged to drink morre water. abd. is soft and non distended, states she does not feel pressure or discomfort. Told her to notify me.
[2020-06-07] MEDS: Naproxen 250 MG Tablet 500 MG PO (23:32)
[2020-06-08 01:54] VITALS: BP 136/97; PULSE 93; RESP 14; TEMP 37; O2SAT 98
[2020-06-08] MEDS: Acetaminophen 500 MG Tablet 1000 MG PO ×2 (01:54→08:08)
--- NOTE | 2020-06-08 07:41 | PCM.PN.OB ---
Patient Problems: Active and Suspected Problems (Last Reviewed 06/02/20 @ 11:08 by Pat Kern) Gestational hypertension (Acute) PUPP (pruritic urticarial papules and plaques of ) (Acute) steroid cream PRN Anemia affecting (Acute) iron supplement, repeat CBC end of april UTI in (Acute) x 2, recommend daily prophylaxis. keflex ordered 12/17. needs repeat culture. ?recurrent yeast infections- clotrimazole ordered. Supervision of normal (Acute) PRR WAYLON 06/14/20 boy Beck Bowie (Acute) NIPT- low risk. Carrier negative . BF Yvfoi-5-Mnjcvmmvlvl negative. declined ntd screening. nl anatomy Subjective: Patient doing well without complaints. Tolerating PO. Ambulating and voiding without difficulty. feeding well. Denies chest pain, shortness of breath, calf pain/swelling, fevers, chills, lightheadedness. - Physical Exam Vitals/I&O's: Vital Signs Temp Pulse Resp BP Pulse Ox 98.6 F 93 14 136/97 H 98 06/08/20 01:54 06/08/20 01:54 06/08/20 01:54 06/08/20 01:54 06/08/20 01:54 Oxygen Delivery Method Room Air Weight: 161 lb 2.526 oz Body Mass Index (BMI) 29.5 Intake and Output for Last 24 Hours 06/06/20 06/07/20 06/08/20 23:59 23:59 23:59 Intake Total 3902.26 / 3902.26 1086.67 / 1086.67 Output Total 2049 / 2049 900 / 900 Balance 1852.26 / 1852.26 186.67 / 186.67 General: Alert, Oriented x3 Microbiology Past 72 Hours 06/06/20 02:30 Mucosa - Nose - Final Current Medications Acetaminophen (Acetaminophen 500 Mg Tablet) 1,000 mg PO Q6H WILFREDO Last Admin: 06/08/20 01:54 Dose: 1,000 mg Documented by: Bisacodyl (Bisacodyl 10 Mg Suppository) 10 mg RECTAL UD PRN PRN Reason: If no BM Hydrocortisone (Hydrocortisone 2.5% Crm) 1 applic TOPICAL TID PRN PRN; Protocol PRN Reason: Discomfort Naloxone HCl (Naloxone 0.4 Mg/Ml Syringe) 0.02 mg IV Q1M PRN PRN Reason: RR <10 and pt unresponsive Naproxen (Naproxen 250 Mg Tablet) 500 mg PO Q8H [facility] Last Admin: 06/07/20 23:32 Dose: 500 mg Documented by: Ondansetron HCl (Ondansetron 4 Mg/2 Ml Vial) 4 mg IV Q4H PRN PRN PRN Reason: Nausea Oxycodone HCl (Oxycodone 5 Mg Tablet) 5 - 10 mg PO Q4H PRN PRN PRN Reason: Pain Score 4-10 Prochlorperazine Edisylate (Prochlorperazine 10 Mg/2 Ml Vial) 10 mg IV Q6H PRN PRN PRN Reason: NAUSEA Senna/Docusate Sodium (Senna/Docusate Sodium 1 Tablet) 0 tablet PO DAILY [facility] Last Admin: 06/07/20 07:48 Dose: 1 tablet Documented by: Simethicone (Simethicone 80 Mg Tablet) 80 mg PO PCHS PRN PRN Reason: Indigestion/stomach pain Last Admin: 06/07/20 10:57 Dose: 80 mg Documented by: Sodium Chloride (0.9% Saline Lock 10 Ml Syringe) 5 - 15 ml IV UD PRN PRN Reason: SALINE FLUSH Last Admin: 06/07/20 17:48 Dose: 10 ml Documented by: Medical Necessity - Tobacco Use Smoking Status: Former smoker Assessment/Plan All Active Problems (Last Reviewed 06/02/20 @ 11:08 by Pat Kern) Gestational hypertension (Acute) Elevated blood pressure affecting in third trimester, antepartum (Acute) 37 weeks gestation of (Acute) PUPP (pruritic urticarial papules and plaques of ) (Acute) Anemia affecting (Acute) UTI in (Acute) Supervision of normal (Acute) (Acute) Nausea/vomiting in (Resolved) (Resolved) Supervision of normal first (Resolved) s/p LTCS PPD # [id number] 1. routine post care 2. breast feeding- support given 3. rh positive 4. rubella immune
--- NOTE | 2020-06-08 07:42 | DCINST_ITS ---
Discharge Diet: No Restrictions Discharge Activity: May Not Drive - for 2 weeks, May not drive while taking narcotic pain medications., May Shower, May Take a Tub Bath - in 7 days May resume sexual activity in: 4-6 weeks Lifting Restrictions: 20 pounds Additional Activity Instructions:: Nothing in the vagina for 4-6 weeks. You may return to work/school in 6 weeks. Call your doctor if your incision/area has: Continuous Slow Oozing, Sudden Increased Bleeding, Increased Pain/ Swelling, Increased Redness, Foul Smelling Discharge Call your doctor if you observe: Fever of 101 or Higher, Using more than one pad per hour - for 2 hours Suture Line Care: Avoid Pulling/Pushing, Avoid Pinching/Bending Cleanse incision/area with: Keep Dressing Clean & Dry Additional Instructions: If you experience any of the following, contact your healthcare provider. * Bleeding that soaks a pad every hour for 2 hours * Fever 100.4 or higher * Unrelieved incision or abdominal pain * Swelling, redness, discharge or bleeding from your incision or episiotomy site * Your incision begins to separate * Problems urinating (including inability to urinate or burning while urinating). * Visual changes * Severe headache * Flu-like symptoms * Pain or redness in one of both of your breasts * Pain, warmth, tenderness or swelling in your legs, especially the calf area * Frequent nausea and vomiting * Symptoms of depression or anxiety If you experience any of the following, call 911 or go to the nearest Emergency Room. * Chest pain * Problems breathing * Seizure activity * Partial or complete paralysis of a body part, slurred speech, weakness or drooping of the face, or a sudden inability to walk or hold your balance Allergies/Adverse Reactions: Allergies No Known Allergies Allergy (Verified 06/05/20 23:59) Medications to take at Discharge vitamin#30 30 mg iron-10 mg iron-folic acid 1 mg-omg3 capsule 1 cap PO DAILY 11/05/19 cephalexin 250 mg capsule 250 mg PO Q12H 04/20/20 Ferrous Sulfate, Dried [Iron] 60 mg PO DAILY 06/06/20 Naproxen [Naprosyn] 250 - 500 mg PO Q8H PRN PRN #30 tab 06/08/20 Oxycodone HCl/Acetaminophen [Percocet 5-325] 1 - 2 tablet PO Q6H PRN PRN 7 Days #15 tablet 06/08/20 The following prescriptions were given: Naproxen [Naprosyn] 250 - 500 mg PO Q8H PRN PRN #30 tab PRN Reason: MILD PAIN Transmission Status: Pending to [facility] Oxycodone HCl/Acetaminophen [Percocet 5-325] 1 - 2 tablet PO Q6H PRN PRN 7 Days #15 tablet PRN Reason: Pain Transmission Status: Received by [facility] Follow-Up: Call to make an appointment with your doctor for an incision check in 1-2 weeks. You will also need a 6 week post- follow up appointment. Test results from this visit will be discussed in further detail at your follow- up appointment, if applicable. Please Follow Up With: Cary Jackson MD - Call to make an appointment for an incision check in 1-2 [phone] When: You will need a post- check in 6 weeks. Primary Care Physician: Care Physician,No Primary [Primary Care Provider] -
[2020-06-08] MEDS: Naproxen 250 MG Tablet 500 MG PO (08:06)
[2020-06-08] MEDS: Senna/Docusate Sodium 1 Tablet PO (08:09)
[2020-06-08 08:21] VITALS: BP 125/88; PULSE 85; RESP 18; TEMP 36.4
== END 2020-06-08 11:25 | disposition home or self-care (01) | DRG 540 ==
LOC: WPOUT 00:57 → WP 00:57
PROVIDERS: Admitting Provider Obstetrics & Gynecology; Referring Provider Obstetrics & Gynecology; Visit Provider Obstetrics & Gynecology
DX: O13.4 Gestational [pregnancy-induced] hypertension without significant proteinuria, complicating childbirth (principal); O26.86 Pruritic urticarial papules and plaques of pregnancy (PUPPP); O69.82X0 Labor and delivery complicated by other cord entanglement, without compression, not applicable or unspecified; O76 Abnormality in fetal heart rate and rhythm complicating labor and delivery; O99.02 Anemia complicating childbirth; D64.9 Anemia, unspecified; O99.334 Smoking (tobacco) complicating childbirth; F17.290 Nicotine dependence, other tobacco product, uncomplicated; Z79.899 Other long term (current) drug therapy; Z3A.38 38 weeks gestation of pregnancy; Z37.0 Single live birth
CPT/HCPCS: 36415; 59025; 59050; 74018; 82565; 82570; 84156; 84450; 84460; 84550; 85027; 85610; 85730; 86850; 86900; 86901; 87426; 99218; J7120; A4216; G0378; J2405

== ENCOUNTER 2020-06-09 12:48 | Emergency (ER) | payer MEDICAID, SELFPAY ==
[2020-06-05 23:56] VITALS: BMI 29.5
[2020-06-09 12:49] VITALS: BP 139/96; PULSE 112; RESP 18; TEMP 36.3; O2SAT 99; BMI 28.7
--- NOTE | 2020-06-09 12:56 | EKG12_ITS ---
Test Reason : EDEMA Blood Pressure : / mmHG Vent. Rate : 087 BPM Atrial Rate : 087 BPM P-R Int : 174 ms QRS Dur : 074 ms QT Int : 364 ms P-R-T Axes : 051 009 028 degrees QTc Int : 438 ms Normal sinus rhythm Low voltage QRS Poor R wave progression Possible Left atrial enlargement Borderline ECG Confirmed by KEYUR NIETO, ELVIA ([id number]), newspaper photo editor JAN SHARPE ([id number]) on 06/13/2020 2:27:14 PM Referred By: ROLAN Confirmed By:ELVIA BAER MD
[2020-06-09 13:20] LABS: Absolute Lymphocyte Count 2.08 X10^3/uL (0.83-4.51); Absolute Neutrophil Count 6.4 X10^3/uL (2.0-7.7); Basophil# 0.03 X10^3/uL; Basophil% 0.3 % (0-1); Eosinophil# 0.19 X10^3/uL; Hematocrit 27.2 % (37-47); Hemoglobin 8.8 g/dL (12.0-15.0); Lymphocyte # 2.08 X10^3/ul (4.0); Lymphocyte % 22.1 % (19-41); Mean Corp Hgb Conc 32.4 g/dL (32-36); Mean Corpuscular Hgb 31.4 pg (27.0-32.0); Mean Corpuscular Volume 97.1 fL (81-99); Mean Platelet Vol. 11.5 fl (6.2-12.0); Monocyte# 0.55 X10^3/uL; Monocyte% 5.8 % (0-10); NRBC Flagged by Analyzer 0 % (0-5); Neutrophil # 6.42 X10^3/uL (2.7-7.7); Neutrophil % 68.1 % (47-70); Platelet Count 156 K/mm3 (150-450); RBC Distribution Width SD 45.9 fl (35.1-43.9); White Blood Count 9.4 K/mm3 (4.4-11.0)
[2020-06-09 13:37] LABS: BNP,B-Type NATRIURETIC PEPTIDE 86.3 pg/mL (0-100)
[2020-06-09 13:38] LABS: ALB/GLOB Ratio 0.7 RATIO (0.9-2.4); AST(SGOT) 29 U/L (15-37); Alanine Aminotransfer ALT/SGPT 22 U/L (13-56); Albumin, Serum 2.5 g/dL (3.2-5.0); Alkaline Phosphatase 123 U/L (45-117); Anion Gap 6 (5-15); BUN 11 mg/dL (7-18); BUN/Creat Ratio 15.8 RATIO (10-20); Calcium,Total 8.5 mg/dL (8.5-10.1); Chloride 112 mmol/L (98-107); EST Glomerular Filtration Rate 110 mL/min (>60); Est Glom Filt Rate - Afr Amer 133 mL/min (>60); Estimated Creatinine Clearance 98.01 ml/min; Globulin 3.6 g/dL (2.2-4.2); Glucose 77 mg/dL (74-106); Potassium 4.1 mmol/L (3.5-5.1); Protein, Total 6.1 g/dL (6.4-8.2); Sodium Level 144 mmol/L (136-145)
--- NOTE | 2020-06-09 13:40 | RAD_ITS ---
STUDY: X-RAY CHEST REASON FOR EXAM: Female, 25 years old. htn and ble edema. saturday. and quot;vision is off and quot; per pt TECHNIQUE: Single AP portable view of the chest. COMPARISON: None. FINDINGS: The lungs are clear and expanded. There is no demonstrated pleural abnormality. Normal size heart. Normal mediastinum and kathy. Normal visualized pulmonary arteries. Normal visualized aortic arch and descending thoracic aorta. Normal visualized thoracic spine. Normal visualized ribs, clavicles, and shoulders. Tiny amount of free air is seen beneath the right hemidiaphragm in keeping with the patient''s history of recent section. RAD/Chest 1 View (Portable) IMPRESSION: Lungs are clear. Small amount of residual free air beneath the right hemidiaphragm in keeping with the patient''s history of recent Electronically Signed: Nas Faulkner, at 13:55 EST , Service support ,
[2020-06-09 14:49] VITALS: BP 140/101; PULSE 91; RESP 18; O2SAT 98
--- NOTE | 2020-06-09 15:01 | ED.VIS.GEN ---
History of Present Illness Chief Complaint: Hypertension Narrative: Patient presents with generalized edema. She is post days ago, she had hypertension during her but had no other complications. She was sent home and now she is not on any antihypertensives. She had an appointment with her PCP and was noted to be hypertensive and sent to the emergency department. She has no shortness of breath she has no chest pain or exertional components. She has normal urinary output she has no history of liver disease or any other problems. She has mild vaginal bleeding which is slowly slowing down. Past Medical History - Allergies and Home Meds Allergies/Adverse Reactions: Allergies No Known Allergies Allergy (Verified 06/09/20 12:49) Primary Care Physician: Jose Feldman MD [Primary Care Provider] - Past Medical History: None Smoking Status: Former smoker Review of Systems General: Denies: Fever Cardiovascular: Denies: Chest pain Respiratory: Denies: Dyspnea, Cough Musculoskeletal: Reports: Swelling. Denies: Myalgias Skin: Denies: Rash Neurological: Denies: Headache, Weakness Psych: Denies: Depression Endocrine: Denies: Polyuria Hematologic: Denies: Easy bruising Allergy: Denies: Uticaria, Swelling of the mouth, Swelling of the tongue Physical Exam Vital Signs/Narrative: Vital Signs Temp Pulse Resp BP Pulse Ox 06/09/20 12:49 97.4 F L 112 H 18 139/96 H 99 General: Well nourished Head: Normocephalic ENT: Moist mucous membranes Neck: Supple Cardiovascular: Regular rate, Regular rhythm, No murmurs Respiratory: No distress, CTA bilaterally Abdomen: Soft, Nontender Back: Nontender, Normal Inspection Extremities: Nontender, - - Bilateral symmetric edema Skin: Normal color Neurological: Alert Diagnostic/Tx/Re-eval - Medical Decision Making Patient has a normal work-up in the emergency department. She appears well she seems to be hypertensive which I will treat I discussed with [employer] TECHNICIAN and patient will be seen outpatient if anything changes she is to return. ED Disposition - Plan for ED Patient: Disposition: LEFT WITHOUT BEING SEEN Diagnosis: Hypertension Instructions: ED Hypertension Established Prescriptions: Nifedipine [Procardia Xl] 30 mg PO DAILY #30 tab.er.24 Transmission Status: Pending to [id number] Referrals: Jose Feldman MD [Primary Care Provider] - 3-5 Days
== END 2020-06-09 15:28 | disposition home or self-care (01) ==
PROVIDERS: Emergency Provider Emergency Medicine; PCP Family Medicine
DX: O12.05 Gestational edema, complicating the puerperium (principal); I10 Essential (primary) hypertension; Z87.891 Personal history of nicotine dependence; Z79.899 Other long term (current) drug therapy
CPT/HCPCS: 71045; 80053; 83880; 84484; 84550; 85025; 93005; 99283; A4216

== ENCOUNTER → 2020-07-13 | Outpatient (CLI) | payer MEDICAID, SELFPAY ==
[2020-07-13 15:08] VITALS: BMI 24.3
== END | disposition home or self-care (01) ==
LOC: LABSPEC 15:59
PROVIDERS: PCP Family Medicine; Visit Provider Obstetrics & Gynecology
DX: T14.8XXA Other injury of unspecified body region, initial encounter (principal); X58.XXXA Exposure to other specified factors, initial encounter; Y93.9 Activity, unspecified; Y92.9 Unspecified place or not applicable; Y99.9 Unspecified external cause status
CPT/HCPCS: 87070; 87077; 87186; 87205

== ENCOUNTER → 2020-11-11 | Outpatient (CLI) | payer MEDICAID, SELFPAY ==
[2020-07-21 09:21] VITALS: BMI 25.0
== END | disposition home or self-care (01) ==
LOC: LABSPEC 13:38
PROVIDERS: PCP Family Medicine; Referring Provider Family Medicine; Visit Provider Family Medicine
DX: U07.1 COVID-19 (principal)
CPT/HCPCS: 87635; U0002

== ENCOUNTER → 2020-12-01 09:47 | Outpatient (CLI) | payer MEDICAID, SELFPAY ==
[2020-07-21 09:21] VITALS: BMI 25.0
[2020-12-01 12:10] LABS: Absolute Lymphocyte Count 2.34 X10^3/uL (0.83-4.51); Basophil# 0.04 X10^3/uL; Basophil% 0.7 % (0-1); Eosinophil# 0.27 X10^3/uL; Eosinophils% 4.4 % (0-5); Hematocrit 40.6 % (37-47); Hemoglobin 12.9 g/dL (12.0-15.0); Lymphocyte # 2.34 X10^3/ul (0.83-4.51); Lymphocyte % 38.2 % (19-41); Mean Corp Hgb Conc 31.8 g/dL (32-36); Mean Corpuscular Hgb 28.6 pg (27.0-32.0); Mean Platelet Vol. 11.6 fl (6.2-12.0); Monocyte# 0.43 X10^3/uL; NRBC Flagged by Analyzer 0 % (0-5); Neutrophil # 3.04 X10^3/uL (2.7-7.7); Neutrophil % 49.5 % (47-70); Platelet Count 238 K/mm3 (150-450); RBC Distribution Width CV 12.5 % (11.6-14.6); RBC Distribution Width SD 40.9 fl (35.1-43.9); Red Blood Count 4.51 M/mm3 (4.2-5.4); White Blood Count 6.1 K/mm3 (4.4-11.0)
[2020-12-01 12:39] LABS: AST(SGOT) 10 U/L (15-37); Alanine Aminotransfer ALT/SGPT 15 U/L (13-56); Albumin, Serum 3.8 g/dL (3.2-5.0); Alkaline Phosphatase 89 U/L (45-117); Anion Gap 5 (5-15); BUN 15 mg/dL (7-18); BUN/Creat Ratio 18.4 RATIO (10-20); Chloride 107 mmol/L (98-107); Creatinine, Serum 0.81 mg/dL (0.55-1.02); EST Glomerular Filtration Rate 91 mL/min (>60); Est Glom Filt Rate - Afr Amer 110 mL/min (>60); Globulin 3.9 g/dL (2.2-4.2); Glucose 87 mg/dL (74-106); Potassium 3.8 mmol/L (3.5-5.1); Protein, Total 7.7 g/dL (6.4-8.2); Sodium Level 139 mmol/L (136-145)
== END ==
PROVIDERS: PCP Family Medicine; Referring Provider Family Medicine; Visit Provider Family Medicine
DX: R03.0 Elevated blood-pressure reading, without diagnosis of hypertension (principal); R79.89 Other specified abnormal findings of blood chemistry
CPT/HCPCS: 36415; 80053; 85025

== ENCOUNTER → 2021-02-10 14:11 | Outpatient (CLI) | payer MEDICAID, SELFPAY ==
[2020-07-21 09:21] VITALS: BMI 25.0
[2021-02-10 16:28] LABS: Vitamin B12 418 pg/mL (211-911); Vitamin D,25 Hydroxy 27.5 ng/mL
[2021-02-10 16:41] LABS: Thyroid Stim Hormone (TSH) 0.46 uIU/mL (0.358-3.74)
== END ==
PROVIDERS: PCP Family Medicine; Visit Provider Family Medicine
DX: R53.83 Other fatigue (principal)
CPT/HCPCS: 36415; 82306; 82607; 84443

== ENCOUNTER → 2021-02-15 11:19 | Outpatient (CLI) | payer MEDICAID, SELFPAY ==
[2020-07-21 09:21] VITALS: BMI 25.0
--- NOTE | 2021-02-15 11:21 | US_ITS ---
STUDY: ULTRASOUND OF THE FEMALE PELVIS - COMPLETE REASON FOR EXAM: Female, 26 years old. PELVIC PAIN -- SCAR PAIN LMP: 01/28/2021. TECHNIQUE: Transabdominal TECHNICAL QUALITY: Adequate. COMPARISON: None. FINDINGS: The uterus is anteverted and is in a midline position. The uterus measures 8.5 cm x 6.3 cm x 4.7 cm. Normal uterine cervix. The endometrium measures 9.2 mm in thickness, and is hyperechoic. There is no demonstrated endometrial mass. There is no demonstrated myometrial mass. I.U.D. - The patient does not have an I.U.D. The right ovary is visualized. The right ovary measures 2.6 x 2.1 cm x 1.3 cm. There is no right ovarian cyst or ovarian mass. There is no visualized right adnexal mass or complex lesion. There is normal arterial and normal venous vascularity. The left ovary is visualized. The left ovary measures 4.3 cm x 5.2 cm x 2.4 cm. There is a 2.3 cm x 2.8 cm x 2.3 cm left ovarian cyst. There is no visualized left adnexal mass or complex lesion. There is normal arterial and normal venous vascularity. There is no fluid in the cul-de-sac. The pre void volume of the bladder was 136 ml. US/Pelvic (Non ) IMPRESSION: Left ovarian cyst. Electronically Signed: Nas Faulkner MD at 14:24 EDT , Service support ,
== END ==
PROVIDERS: PCP Family Medicine; Referring Provider Family Medicine; Visit Provider Family Medicine
DX: R10.2 Pelvic and perineal pain (principal)
CPT/HCPCS: 76856

== ENCOUNTER → 2021-04-06 | Outpatient (CLI) | payer OTHER, MEDICAID, SELFPAY | END | disposition home or self-care (01) | LOC: LABSPEC 14:35 | PROVIDERS: PCP Family Medicine; Referring Provider Family Medicine; Visit Provider Family Medicine | DX: Z20.822 Contact with and (suspected) exposure to COVID-19 (principal) | CPT/HCPCS: 87635; U0005; U0003 ==

== ENCOUNTER 2021-09-28 07:57 | Outpatient (CLI) | payer BC, MEDICAID, SELFPAY | END 2021-09-28 23:59 | disposition home or self-care (01) | LOC: LABSPEC 09-29 07:59 | PROVIDERS: PCP Family Medicine; Visit Provider Nurse Practitioner Women's Health | DX: N39.0 Urinary tract infection, site not specified (principal) | CPT/HCPCS: 87086; 87088; 87186 ==

== ENCOUNTER 2021-11-16 19:42 | Emergency (ER) | payer MEDICAID, SELFPAY ==
[2021-11-16 19:44] VITALS: BP 137/85; PULSE 90; RESP 14; TEMP 36; O2SAT 100; BMI 18.6
--- NOTE | 2021-11-16 20:19 | ED.VIS.FEGU ---
HPI HPI - Female History of Present Illness Chief Complaint: Female C/O Informant: patient Pain Pain: Positive for Vaginal Pain Onset: Days (3-4) Context: Gradual Onset Timing: Continuous Quality: Positive for - (discomfort) Location: - (vagina) Current Severity: Mild Maximum Severity: Moderate Worsened by: Movement (walking) Relieved by: Remaining Still Vaginal Discharge Quality: Positive for White; Negative for Foul smelling Severity: Light (like usual for me) Associated Symptoms Associated Symptoms: Negative for Dysuria, Frequency, Urgency and Hematuria Narrative Narrative: Patient states she had a bladder infection recently, she was treated with 1 week of an antibiotic that she took twice a day but she cannot remember which one (thinks it was cephalexin), and about a week later she started having vaginal discomfort, and some suprapubic discomfort without any urinary symptoms that she had with the bladder infection. She states she has a white vaginal discharge but states it is not necessarily different than the normal discharge for her. She states she gets recurrent urinary and vaginal infections. She was prescribed the antibiotic at her shactor. She has now had the symptoms for [address] [facility] Medical History Gestational hypertension History of anxiety History of depression Home Medications metronidazole 500 mg PO BID #14 tab 11/16/21 [Rx Last Taken Unknown] Allergy/AdvReac Type Severity Reaction Status Date / Time No Known Allergies Allergy Verified 11/16/21 19:43 Family History Grandmother Diabetes Breast cancer Grandfather Diabetes [id number] deficiency Surgical History delivery delivered Social History Smoking Status: Never smoker Electronic Cigarette Use: with nicotine alcohol intake: never substance use type: does not use caffeine: Yes (rarely) what type of physical activity do you participate in: walking and other details: 20,000 steps per day seatbelt use: always do you feel safe at home: Yes additional social history: Boyfriend-Gerardo Goodson Patient works at [employer] ED Constitutional Constitutional ED: Denies chills or fever(s) Eyes Eyes: Denies change in vision or diplopia ENT ENT ED: Denies rhinorrhea or sore throat Cardiovascular Cardiovascular: Denies chest pain or palpitations Respiratory/Chest Respiratory/Chest: Denies cough or dyspnea Gastrointestinal Gastrointestinal: Reports as per HPI and abdominal pain; Denies diarrhea, nausea or vomiting Genitourinary Genitourinary ED: Reports as per HPI; Denies dysuria or hematuria Musculoskeletal Musculoskeletal: Denies back pain or neck pain Integumentary Denies abscess or rash Neurologic Neurologic: Denies headache(s), paresthesias or weakness Psychiatric Psychiatric: Denies anxiety or suicidal thoughts EXAM Physical Exam Const Vital Signs: 11/16/21 19:44 11/16/21 21:43 Temperature 96.8 F L Temperature Source Temporal Pulse Rate 90 Respiratory Rate 14 17 Blood Pressure 137/85 H Blood Pressure Mean 102 Pulse Ox 100 Oxygen Delivery Method Room Air Room Air Positive well nourished and well developed General Appearance ED: well developed and NAD HEENT Reports moist mucous membranes normocephalic and atraumatic Eyes PERRL and EOMs intact bilaterally Neck full ROM and supple Resp normal respiratory effort GI non-distended GI Narrative: Mild suprapubic tenderness only Auscultation: normoactive bowel sounds Palpation: soft; Negative for guarding Back/Spine no CVA tenderness General Back: other FROM Extremity normal to inspection Neuro oriented x3, CN's II-XII intact bilaterally and no sensory deficits noted Sensorium / Orientation: awake and alert Motor Exam: strength 5/5 throughout Skin no rashes or lesions noted and no wounds MDM MDM MDM Narrative Medical decision making narrative: Patient was amenable to pelvic exam and swabs for testing. The speculum exam was very uncomfortable. There was a thin hawk discharge present in the vaginal canal, the cervix was normal-appearing did not appear to have cervicitis. I did send GC and chlamydia although I am not suspicious this is an acute infection of either, and her wet prep is consistent with bacterial vaginosis which is most likely after the antibiotic she recently had. Started on Flagyl and advised to follow-up with gynecology if it does not get better she is comfortable with that plan. Discharge Plan Triage Chief Complaint: Female C/O ED Provider: Papito Miller Dx/Rx/DC Orders Clinical Impression: Bacterial vaginosis Instructions: Bacterial Vaginosis Prescriptions: New metronidazole [metronidazole] 500 MG tablet 500 mg PO BID Qty: 14 RF: 0 Primary Care Provider: Care Physician,No Primary Referrals: Cary Jackson MD [STAFF PHYSICIAN] - 1 Week if not improving Care Physician,No Primary [Primary Care Provider] - Disposition Disposition: Home, Self Care
[2021-11-16 21:43] VITALS: RESP 17
[2021-11-16] MEDS: metroNIDAZOLE 500 MG Tablet PO (23:11)
[2021-11-16 23:13] VITALS: BP 121/74; PULSE 74; RESP 17; O2SAT 97
[2021-11-17 00:17] LABS: Chlamydia Trachomatis by PCR Negative (Negative); Neisserai gonorrhoeae by PCR Negative (Negative); Probe Check PASS; Sample Adequacy Control PASS; Specimen Processing Control PASS
== END 2021-11-16 23:13 | disposition home or self-care (01) ==
PROVIDERS: Emergency Provider Emergency Medicine; Visit Provider Emergency Medicine
DX: N76.0 Acute vaginitis (principal); B96.89 Other specified bacterial agents as the cause of diseases classified elsewhere; F17.290 Nicotine dependence, other tobacco product, uncomplicated
CPT/HCPCS: 87210; 87491; 87591; 99283

== ENCOUNTER → 2022-04-05 | Outpatient (CLI) | payer MEDICAID, SELFPAY ==
[2022-04-05 15:55] LABS: Absolute Lymphocyte Count 2.73 X10^3/uL (0.83-4.51); Absolute Neutrophil Count 3.6 X10^3/uL (2.0-7.7); Basophil# 0.04 X10^3/uL; Basophil% 0.6 % (0-1); Eosinophil# 0.11 X10^3/uL; Eosinophils% 1.6 % (0-5); Hematocrit 39.2 % (37-47); Hemoglobin 13.1 g/dL (12.0-15.0); Lymphocyte # 2.73 X10^3/ul (0.83-4.51); Lymphocyte % 39.9 % (19-41); Mean Corp Hgb Conc 33.4 g/dL (32-36); Mean Corpuscular Hgb 30.6 pg (27.0-32.0); Mean Corpuscular Volume 91.6 fL (81-99); Mean Platelet Vol. 10.7 fl (6.2-12.0); Monocyte# 0.37 X10^3/uL; Monocyte% 5.4 % (0-10); NRBC Flagged by Analyzer 0 % (0-5); Neutrophil # 3.58 X10^3/uL (2.7-7.7); Neutrophil % 52.4 % (47-70); Platelet Count 239 K/mm3 (150-450); RBC Distribution Width CV 12.4 % (11.6-14.6); RBC Distribution Width SD 41.1 fl (35.1-43.9); Red Blood Count 4.28 M/mm3 (4.2-5.4); White Blood Count 6.8 K/mm3 (4.4-11.0)
[2022-04-05 16:37] LABS: Thyroid Stim Hormone (TSH) 1.54 uIU/mL (0.358-3.74)
== END | disposition home or self-care (01) ==
PROVIDERS: Referring Provider Obstetrics & Gynecology; Visit Provider Obstetrics & Gynecology
DX: R30.0 Dysuria (principal); N39.46 Mixed incontinence
CPT/HCPCS: 36415; 84443; 85025; 87086; 87088; 87186

== ENCOUNTER → 2022-04-18 | Outpatient (CLI) | payer MEDICAID, SELFPAY ==
--- NOTE | 2022-04-18 07:37 | US_ITS ---
STUDY: ULTRASOUND OF THE FEMALE PELVIS - COMPLETE REASON FOR EXAM: Female, 27 years old. Abnormal bleeding -- INTERMITTENT SPOTTING -- INTERMITTENT MID TO LEFT PELVIC PAIN LMP: 03/09/2022. TECHNIQUE: Transabdominal and Transvaginal TECHNICAL QUALITY: Adequate. COMPARISON: Comparison is made with prior examination dated 02/15/2021. FINDINGS: The uterus is anteverted and is in a midline position. The uterus measures 9 cm x 6.8 cm x 5.2 cm. Normal uterine cervix. The endometrium measures 12 mm in thickness, and is heterogeneous (striated). There is no demonstrated endometrial mass. There is no demonstrated myometrial mass. I.U.D. - The patient does not have an I.U.D. The right ovary is visualized. The right ovary measures 3.6 cm x 2.7 cm x 1.4 cm. There is no right ovarian cyst or ovarian mass. There is no visualized right adnexal mass or complex lesion. There is normal arterial and normal venous vascularity. The left ovary is visualized. The left ovary measures 2.6 cm x 3.1 cm x 1.2 cm. There is no left ovarian cyst or ovarian mass. There is no visualized left adnexal mass or complex lesion. There is normal arterial and normal venous vascularity. There is minimal fluid in the cul-de-sac. The pre void volume of the bladder was 153 ml. There is thickening of the bladder floor. There is trabeculation of the floor of the urinary bladder. US/Pelvic (Non ) IMPRESSION: Thickened endometrium. Bladder wall thickening with trabeculation at the bladder base. Electronically Signed: Nas Faulkner MD at 10:12 EDT ,
--- NOTE | 2022-04-18 07:37 | US_ITS ---
STUDY: ULTRASOUND OF THE FEMALE PELVIS - COMPLETE REASON FOR EXAM: Female, 27 years old. Abnormal bleeding -- INTERMITTENT SPOTTING -- INTERMITTENT MID TO LEFT PELVIC PAIN LMP: 03/09/2022. TECHNIQUE: Transabdominal and Transvaginal TECHNICAL QUALITY: Adequate. COMPARISON: Comparison is made with prior examination dated 02/15/2021. FINDINGS: The uterus is anteverted and is in a midline position. The uterus measures 9 cm x 6.8 cm x 5.2 cm. Normal uterine cervix. The endometrium measures 12 mm in thickness, and is heterogeneous (striated). There is no demonstrated endometrial mass. There is no demonstrated myometrial mass. I.U.D. - The patient does not have an I.U.D. The right ovary is visualized. The right ovary measures 3.6 cm x 2.7 cm x 1.4 cm. There is no right ovarian cyst or ovarian mass. There is no visualized right adnexal mass or complex lesion. There is normal arterial and normal venous vascularity. The left ovary is visualized. The left ovary measures 2.6 cm x 3.1 cm x 1.2 cm. There is no left ovarian cyst or ovarian mass. There is no visualized left adnexal mass or complex lesion. There is normal arterial and normal venous vascularity. There is minimal fluid in the cul-de-sac. The pre void volume of the bladder was 153 ml. There is thickening of the bladder floor. There is trabeculation of the floor of the urinary bladder. US/Transvaginal Non- IMPRESSION: Thickened endometrium. Bladder wall thickening with trabeculation at the bladder base. Electronically Signed: Nas Faulkner MD at 10:12 EDT ,
== END | disposition home or self-care (01) ==
LOC: US 07:37
PROVIDERS: Referring Provider Obstetrics & Gynecology; Visit Provider Obstetrics & Gynecology
DX: N93.9 Abnormal uterine and vaginal bleeding, unspecified (principal)
CPT/HCPCS: 76830; 76856; 93976

== ENCOUNTER → 2022-04-25 | Outpatient (CLI) | payer MEDICAID, SELFPAY ==
--- NOTE | 2022-04-25 13:46 | CT_ITS ---
ACR Level 3 findings have been noted. An addendum which confirms receipt of the report will follow. INDICATION: GROSS HEMATURIA EXAMINATION: CT Abdomen And Pelvis WO/W Contrast Injection TECHNIQUE: Helically acquired images were obtained of the abdomen and pelvis before and after IV contrast. A radiation dose optimization technique was used for this scan. IV Contrast dosage and agent: IV 75mL [id number] Oral contrast: None. COMPARISON: None. FINDINGS: Visualized lung bases: Unremarkable Liver: Unremarkable Gallbladder: Few small intraluminal stones seen. Spleen: Unremarkable Pancreas: Unremarkable Adrenal Glands: Unremarkable Kidneys: No hydronephrosis or renal stones. Vasculature: Unremarkable GI Tract: Unremarkable Lymphadenopathy: None Peritoneum: Moderate free fluid in the pelvis. Bladder: Asymmetric bladder wall thickening with the right bladder neck and trigone being affected. Maximal thickness is 1 cm. Reproductive organs: Unremarkable Bones/Soft tissues: No suspicious osseous or soft tissue lesions CT/CT Abd/Pelvis W/WO Contrast IMPRESSION: Asymmetric bladder wall thickening of the right bladder neck and trigone. No evidence of hydronephrosis or renal stones. No suspicious lymphadenopathy. Recommend cystoscopy. Cholelithiasis. Electronically Signed: Chris Callejas MD at 22:43 EDT ,
--- NOTE | 2022-04-25 22:46 | ED.RN ---
[employer] called to check make sure report was received. report has been received
== END | disposition home or self-care (01) ==
LOC: CT 13:44
PROVIDERS: Referring Provider Urology; Visit Provider Urology
DX: R31.0 Gross hematuria (principal)
CPT/HCPCS: 74178; Q9967

== ENCOUNTER 2022-05-03 09:32 | Day surgery (SDC) | payer MEDICAID, SELFPAY ==
[2022-05-03 10:01] LABS: Internal QC Validated? YES +Cl - CLEAR BKGD
[2022-05-03 10:04] VITALS: BP 110/64; PULSE 79; RESP 16; TEMP 36.6; O2SAT 100; BMI 18.3
[2022-05-03 10:04] LABS: Pregnancy, Urine Negative Negative
[2022-05-03] MEDS: Lactated Ringers 1,000 ML 15 ML IV (10:13)
--- NOTE | 2022-05-03 11:15 | BLA_PTH ---
PATIENT: ELIANA GUILLEN [place] [facility] [place][id number] AGE/SX: 27/F ROOM: RE05/03/[address]: Dr. Geneva Schilling MD : 1995 BED: DIS: 05/03/2022 SPEC #: [id number] RECD: 05/03/22 15:01 STATUS: JERAMY ABY #: [id number] GRISEL: 05/03/22 11:[address]: Geneva Schilling DEPT: SURGICAL PATHOLOGY RECD BY: Maribel Coronado ENTERED: 05/04/22 09:56 SP TYPE: BLADDER BX OTHR DR: No Primary Care Phys Tissues: Urinary bladder, NOS Procedures: Surgery Specimen Level IV HEADER OPERATION: Pelvic exam under anesthesia, cysto, multiple bladder biopsies PRE-OP DIAGNOSIS: Chronic bladder pain, hematuria TISSUE SUBMITTED: Multiple bladder biopsies MICROSCOPIC DIAGNOSIS Bladder, biopsy: Fragments of urothelial mucosa with acute and chronic inflammation. Negative for malignancy. See comment. SJ:andrew 05/07/2022 COMMENT Epithelium is denuded focally. Detrusor muscle is not present in the specimen. MICROSCOPIC DESCRIPTION Slides are reviewed. GROSS DESCRIPTION Received in fixative is one container labeled with the patient's name and designated multiple bladder biopsies. The specimen consists of multiple irregular fragments of light [place] soft tissue that in aggregate measure 1 x 0.1 x 0.1 cm. The specimen is totally submitted in one cassette. / GAYATRI:andrew 05/04/2022 TC: CPT:
[2022-05-03] MEDS: Cefazolin 2 GM in 0.9% Normal Saline 100 ML IV (13:18)
--- NOTE | 2022-05-03 13:20 | DCINST_ITS ---
Discharge Instructions Diet Discharge Diet: No restrictions Activity Discharge Activity: Return to Normal Activity Dressing / Incision Call your doctor if you observe: Fever of 101 or Higher, Inability to urinate and Inability to have a bowel movement Follow Up Care Please Follow Up With: Geneva Schilling MD When: call office for appt to be seen in 1 week Test Results: Test results from this visit will be discussed in further detail at your follow- up appointment, if applicable. Discharge Plan Admission Attending Provider: Geneva Schilling Primary Care Provider: Care PhysicianCodi Primary Discharge Orders/Prescriptions Prescriptions: New oxycodone-acetaminophen [Percocet] 5-325 mg tablet 1 tab PO Q8H PRN (Reason: pain) 3 Days Qty: 10 0RF cephalexin [cephalexin] 500 mg capsule 500 mg PO Q12 3 Days Qty: 6 0RF phenazopyridine [Pyridium] 200 mg tablet 200 mg PO TID PRN PRN (Reason: Bladder Spasms) 7 Days Qty: 30 0RF No Action Xulane 150-35 mcg/24 hr patch weekly 1 patch transdermal Q7D Qty: 3 12RF Gemtesa 75 mg Tablet 75 mg PO DAILY Colace 50 mg Capsule 50 mg PO DAILY Referrals / Follow Up: Care Physician,No Primary [Primary Care Provider] - Disposition Disposition (needs filled in before D/C Order can be placed): Home, Self Care
--- NOTE | 2022-05-03 13:23 | PCM.OPRPT ---
Problems Associated Problem List Diagnoses (1) Bladder ulcer: Report of Operation Date of Procedure: 05/03/22 Pre-Operative Diagnosis: Chronic bladder pain, gross hematuria Post-Operative Diagnosis: Same with bladder ulcerations Surgery/Procedure Performed:: Cystoscopy, bladder biopsy with fulguration Surgeon: Geneva Schilling Type of Anesthesia: MAC Specimen's removed: Bladder biopsies Description of Procedure: Patient is a 27-year-old female with longstanding issues regarding chronic bladder pain and gross hematuria who presents for further evaluation and management. Informed consent was obtained. The patient was taken to the operating room and placed on the operating room table. Anesthesia monitored the head, neck, airway, IV access and vital signs throughout the case. Once anesthesia was appropriately ministered the patient was placed into dorsolithotomy position and was prepped and draped in usual sterile fashion. The cystoscope was inserted through the urethra under direct visualization into the urinary bladder. Immediately visualized were 2 bladder ulcerations 1 in the right dome and lateral wall approximately 1 cm in diameter and a second 1 in the patient's left lateral wall approximately 1 cm lateral to the ureteral orifice. This ulceration most likely get closer to 1.5 cm in size. There is significant edema of the surrounding tissues. There was some sloughing of the overlying mucosa as well. Several bladder biopsies were taken including each biopsy site. These areas were fulgurated for hemostatic control and tissue treatment. At this time the patient's bladder was emptied and the case was terminated. She was awakened and taken to the recovery room in good condition. There were no complications during this procedure. Complications none Admit VTE Documentation VTE Present on Admission: Yes VTE Mechan Device Prophylaxis: SCD's VTE Pharm Prophylaxis ordered?: No Reason prophylaxis not ordered:: Treatment Not Indicated
[2022-05-03 14:10] VITALS: BP 103/66; BP 110/64; PULSE 82; RESP 16; TEMP 36.3; O2SAT 99
[2022-05-03 14:15] VITALS: BP 105/72; BP 110/64; PULSE 79; RESP 16; O2SAT 100
[2022-05-03 14:20] VITALS: BP 108/92; BP 110/64; PULSE 63; RESP 16; O2SAT 100
[2022-05-03 14:25] VITALS: BP 110/64; BP 99/72; PULSE 62; RESP 16; TEMP 36.7; O2SAT 100
[2022-05-03 15:02] VITALS: BP 110/64
== END 2022-05-03 15:28 | disposition home or self-care (01) ==
LOC: SDC 09:36 → AC 09:36
PROVIDERS: Anesthesiology; Referring Provider Urology; Visit Provider Urology
PROC: 0TJB8ZZ Inspection of Bladder, Via Natural or Artificial Opening Endoscopic (ICD-10-PCS; CPT 57410; principal; 2022-05-03 11:05)
DX: N32.89 Other specified disorders of bladder (principal); R31.0 Gross hematuria; R39.82 Chronic bladder pain; N39.46 Mixed incontinence; N39.0 Urinary tract infection, site not specified; R35.0 Frequency of micturition; R35.1 Nocturia; Z79.899 Other long term (current) drug therapy
CPT/HCPCS: 52204; 00910; 81025; 88305; J7120; C1758; J2405

== ENCOUNTER 2022-09-06 09:58 | Day surgery (SDC) | payer MEDICAID, SELFPAY ==
[2022-09-06] VITALS (9 sets, daily range): BP systolic 116–120; BP diastolic 69–89; PULSE 47–82; RESP 16–18; TEMP 36.4–36.8; O2SAT 100; BMI 18.8
[2022-09-06] MEDS: Lactated Ringers 1,000 ML 15 ML IV ×2 (10:36→12:29)
[2022-09-06 10:38] LABS: Hematocrit 38.7 % (37-47); Mean Corp Hgb Conc 33.6 g/dL (32-36); Mean Corpuscular Hgb 30.7 pg (27.0-32.0); Mean Corpuscular Volume 91.3 fL (81-99); Mean Platelet Vol. 10.5 fl (6.2-12.0); Platelet Count 228 K/mm3 (150-450); RBC Distribution Width CV 12.1 % (11.6-14.6); RBC Distribution Width SD 40.5 fl (35.1-43.9); Red Blood Count 4.24 M/mm3 (4.2-5.4); White Blood Count 5.3 K/mm3 (4.4-11.0)
[2022-09-06 10:41] LABS: Internal QC Validated? YES +Cl - CLEAR BKGD; Pregnancy, Urine Negative Negative
--- NOTE | 2022-09-06 10:44 | PCM.OPRPT ---
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 She presents for repeat evaluation of her bladder under anesthesia. Informed consent was obtained. Patient was taken to the operating room and placed on the operating room table. Anesthesia monitored the head, neck, airway, IV access and vital signs throughout the case. Once anesthesia was appropriately administered, the patient was placed into dorsolithotomy position and was prepped and draped in usual sterile fashion. The cystoscope was then inserted through the urethra under direct visualization into the urinary bladder. The previously identified ulceration on the left posterior wall was once again identified with inflammation and papillary changes just adjacent to the ulcer. Sporadically throughout her bladder mucosa were identified multiple areas consistent with cystitis cystica. In total 3 biopsies were taken at the papillary inflammatory area. This area was fulgurated for hemostatic control tissue treatment. The patient was then awakened and taken to the recovery room in good condition. There were no complications during this procedure. Grafts/Implants Used: none Complications none Admit VTE Documentation VTE Present on Admission: Yes VTE Mechan Device Prophylaxis: SCD's VTE Pharm Prophylaxis ordered?: No Reason prophylaxis not ordered:: Treatment Not Indicated
--- NOTE | 2022-09-06 10:46 | DCINST_ITS ---
Discharge Instructions Diet Discharge Diet: No restrictions Activity Discharge Activity: Return to Normal Activity Dressing / Incision Call your doctor if you observe: Fever of 101 or Higher, Inability to urinate and Inability to have a bowel movement Follow Up Care Please Follow Up With: Geneva Schilling MD When: call office for appt to be seen next week Test Results: Test results from this visit will be discussed in further detail at your follow- up appointment, if applicable. Discharge Plan Admission Attending Provider: Geneva Schilling Primary Care Provider: Care PhysicianCodi Primary Discharge Orders/Prescriptions Prescriptions: New oxycodone-acetaminophen [Percocet] 5-325 mg tablet 1 tab PO Q8H PRN (Reason: pain) 3 Days Qty: 10 0RF Continued docusate sodium 50 mg Capsule 50 mg PO PRN PRN (Reason: Constipation) phenazopyridine [Pyridium] 200 mg tablet 200 mg PO TID PRN PRN (Reason: Bladder Spasms) 7 Days Qty: 30 0RF Excedrin Migraine 250-250-65 mg Tablet 1 tab PO Q6H PRN (Reason: Migraine Headache) cephalexin 500 mg capsule 500 mg PO TID Label Comments: TAKE 1 CAPSULE BY MOUTH THREE TIMES DAILY Referrals / Follow Up: Care Physician,No Primary [Primary Care Provider] - Disposition Disposition (needs filled in before D/C Order can be placed): Home, Self Care
[2022-09-06 10:51] LABS: Partial Thromboplast Time 33.7 Seconds (24.1-36.2)
[2022-09-06 11:03] LABS: AST(SGOT) 13 U/L (15-37); Alanine Aminotransfer ALT/SGPT 15 U/L (13-56); Albumin, Serum 3.9 g/dL (3.2-5.0); Alkaline Phosphatase 60 U/L (45-117); Bilirubin, Direct 0.11 mg/dL (0.00-0.30); Globulin 3.4 g/dL (2.2-4.2); Protein, Total 7.3 g/dL (6.4-8.2)
[2022-09-06] MEDS: Cefazolin 2 GM in 0.9% Normal Saline 100 ML IV (11:24)
--- NOTE | 2022-09-06 11:25 | BLA_PTH ---
PATIENT: ELIANA GUILLEN [place] [facility] [place][id number] AGE/SX: 27/F ROOM: RE09/06/[address]: Dr. Geneva Schilling MD : 1995 BED: DIS: 09/06/2022 SPEC #: [id number] RECD: 09/06/22 14:02 STATUS: JERAMY ABY #: [id number] GRISEL: 09/06/22 11:[address]: Geneva Schilling DEPT: SURGICAL PATHOLOGY RECD BY: Cherelle Harper ENTERED: 09/07/22 12:37 SP TYPE: BLADDER BX OTHR DR: No Primary Care Phys Tissues: Urinary bladder, NOS Procedures: Surgery Specimen Level IV HEADER OPERATION: Cysto, bladder biopsy, fulguration PRE-OP DIAGNOSIS: Bladder pain, UTI, urge incontinence TISSUE SUBMITTED: Bladder biopsy MICROSCOPIC DIAGNOSIS Urinary bladder, biopsy: Chronic and eosinophilic cystitis. See comment. AM:andrew 09/10/2022 COMMENT Sections show fragments of benign squamous mucosa. Focally, there is urothelial mucosa and underlying lamina propria containing mixed chronic inflammatory infiltrate consisting of a prominent eosinophilic component along with mature plasma cells and lymphocytes. Occasional neutrophils are also present. Clinical correlation is suggested. Case has been reviewed in consultation with Dr. Lyman who concurs with the above diagnosis. EMMA:GAYATRI MICROSCOPIC DESCRIPTION Slides are reviewed. GROSS DESCRIPTION Received in fixative is one container labeled with the patient's name and designated bladder biopsy. The specimen consists of multiple irregular fragments of light [place] soft tissue that in aggregate measure 0.5 x 0.4 x 0.1 cm. The specimen is totally submitted in one cassette. / GAYATRI:andrew 09/07/2022 TC:3 CPT: 44487
[2022-09-06 11:37] LABS: International Normalized Ratio 1.1; Prothrombin Time (Protime)PT. 14.1 SECONDS (11.7-14.9)
== END 2022-09-06 13:10 | disposition home or self-care (01) ==
LOC: SDC 10:00 → AC 10:02
PROVIDERS: Anesthesiology; Referring Provider Urology; Visit Provider Urology
PROC: 0TBB8ZX Excision of Bladder, Via Natural or Artificial Opening Endoscopic, Diagnostic (ICD-10-PCS; CPT 52204; principal; 2022-09-06 11:15)
DX: N30.10 Interstitial cystitis (chronic) without hematuria (principal); N30.80 Other cystitis without hematuria; R39.82 Chronic bladder pain; N39.41 Urge incontinence; R35.0 Frequency of micturition; R35.1 Nocturia; F17.200 Nicotine dependence, unspecified, uncomplicated; Z79.899 Other long term (current) drug therapy
CPT/HCPCS: 52204; 00910; 80076; 81025; 85027; 85610; 85730; 88305; J7120; J2405

== ENCOUNTER 2023-01-26 08:26 | Emergency (ER) | payer MEDICAID, SELFPAY ==
[2023-01-26 08:27] VITALS: BP 148/95; PULSE 108; RESP 16; TEMP 36.2; O2SAT 100; BMI 19.0
[2023-01-26 08:55] LABS: Mucous, Urine 0 SEEN /hpf (<or=2+)
[2023-01-26 09:09] LABS: Color, Urine Yellow (Yellow); Glucose, Dipstick Normal (Normal); Ketone-Dipstick 15 mg/dl (Negative); Leukocyte Esterase-Dipstick 500 /ul (Negative); Nitrite-Dipstick Negative (Negative); Occult Blood-Urine 250 /ul (Negative); Protein-Dipstick 500 mg/dl (Negative); Specific Gravity, Urine 1.015 (1.002-1.030); Urine Bilirubin Dipstick Negative (Negative); Urine Clarity Cloudy (Clear); Urine Urobilinogen Normal (Normal)
[2023-01-26 09:21] LABS: Bacteria 2+ /hpf (None Seen); Red Blood Cells-Urine > 100 SEEN /hpf (0-5); Squamous Epithelial Cells - UA 5-10 SEEN /hpf (5-10); Triple Phosphate Crystals Ur 1+ /hpf (<or=1+); White Blood Cells 50-100 SEEN /hpf (0-5)
[2023-01-26 09:22] LABS: Internal QC Validated? YES +Cl - CLEAR BKGD; Pregnancy, Urine Negative Negative
--- NOTE | 2023-01-26 09:33 | ED.VIS.FEGU ---
HPI HPI - Female History of Present Illness Chief Complaint: Complaint Narrative Narrative: 47-year-old female with history of UTIs, interstitial cystitis, bladder ulcers presenting with dysuria. She states that does burn when she tries to pee and she is going more often. She states that when she does the void and forces it it almost is like her bladder spasms and her body spasms all over until she finishes voiding. This is new for her. Its not usually this severe. No fevers. No diarrhea or constipation. PFSH PFSH Medical History Alcohol use Anemia Bladder ulcer Dietary restriction Easy bruising Gestational hypertension History of anxiety History of depression Marijuana use Migraine Vapes nicotine containing substance Home Medications docusate sodium 50 mg capsule 50 mg PO PRN PRN Constipation 04/26/22 [History Last Taken Unknown] phenazopyridine 200 mg tablet (Pyridium) 200 mg PO TID PRN PRN Bladder Spasms 7 days #30 tabs 05/03/22 [Rx Last Taken Unknown] nwabiwb-tagluykdovqao-rlsdglju 250 mg-250 mg-65 mg tablet (Excedrin Migraine) 1 tab PO Q6H PRN Migraine Headache 08/30/22 [History Last Taken Unknown] cephalexin 500 mg capsule 500 mg PO TID 09/06/22 [History Last Taken 09/06/22] oxycodone-acetaminophen 5 mg-325 mg tablet (Percocet) 1 tab PO Q8H PRN pain 3 days #10 tabs 09/06/22 [Rx Last Taken Unknown] cephalexin 500 mg capsule 500 mg PO Q12 #14 CAPSULES 01/26/23 [Rx Last Taken Unknown] Allergy/AdvReac Type Severity Reaction Status Date / Time No Known Allergies Allergy Verified 01/26/23 08:29 Family History Grandmother Diabetes Breast cancer Grandfather Diabetes Cdakf-4-[id number] deficiency Surgical History delivery delivered History of cystoscopy Social History Smoking Status: Current every day smoker tobacco type: e-cigarettes Electronic Cigarette Use: with nicotine alcohol intake: never substance use type: does not use caffeine: Yes (rarely) what type of physical activity do you participate in: walking and other details: 20,000 steps per day seatbelt use: always do you feel safe at home: Yes additional social history: Boyfriend-Gerardo Goodson Patient works at [employer] ED Constitutional Constitutional ED: Denies chills or fever(s) Eyes Eyes: Denies change in vision or diplopia ENT ENT ED: Denies rhinorrhea or sore throat Cardiovascular Cardiovascular: Denies chest pain or palpitations Respiratory/Chest Respiratory/Chest: Denies cough or dyspnea Gastrointestinal Gastrointestinal: Reports nausea Genitourinary Genitourinary ED: Reports dysuria, hematuria and urinary frequency Musculoskeletal Musculoskeletal: Reports other Details: Muscle spasms Integumentary Denies abscess or Abrasions Neurologic Neurologic: Denies headache(s) or paresthesias EXAM Physical Exam Const Vital Signs: 01/26/23 08:27 Temperature 97.1 F L Temperature Source Temporal Pulse Rate 108 H Respiratory Rate 16 Blood Pressure 148/95 H Blood Pressure Mean 112 Pulse Ox 100 Oxygen Delivery Method Room Air MDM MDM MDM Narrative Medical decision making narrative: Patient presenting with UTI symptoms. This could also be interstitial cystitis, pyelonephritis. She does not have any CVA tenderness. Differential includes UTI, pyelonephritis, electrolyte abnormalities. we will obtain a urinalysis. Given the patient is having muscle spasms at the end of voiding I will check a CBC to assess white blood cell count, hemoglobin, platelets. I will assess a CMP to assess liver function, renal function, electrolytes. Patient given a liter of IV fluids. Patient states that Keflex is usually the antibiotic that works for her so she is given a dose of this here. Impression: 1. UTI Lab Data Attestation: I reviewed the patient's lab results. Labs: Laboratory Results - last 24 hr 01/26/23 01/26/23 01/26/23 08:51 09:30 09:30 WBC 7.9 RBC 4.53 Hgb 14.0 Hct 40.5 MCV 89.4 MCH 30.9 MCHC 34.6 RDW Std Deviation 38.6 RDW Coeff of Cosme 11.9 Plt Count 248 MPV 10.5 Immature Gran % (Auto) 0.300 Neut % (Auto) 65.2 Lymph % (Auto) 28.8 [place] % (Auto) 4.4 Eos % (Auto) 0.8 Baso % (Auto) 0.5 Absolute Neuts (auto) 5.2 Absolute Lymphs (auto) 2.28 Nucleated RBC % 0 Sodium 141 Potassium 3.9 Chloride 107 Carbon Dioxide 27.0 Anion Gap 7 BUN 15 Creatinine 0.79 Estim Creat Clear Calc 80.36 Est GFR (MDRD) Af Amer 113 Est GFR (MDRD) Non-Af 93 BUN/Creatinine Ratio 19.0 Glucose 95 Calcium 9.0 Magnesium 2.3 Total Bilirubin 0.60 AST 10 L ALT 12 L Alkaline Phosphatase 66 Total Protein 7.6 Albumin 4.2 Globulin 3.4 Albumin/Globulin Ratio 1.2 Urine Color Yellow Urine Clarity Cloudy Urine pH 8.0 Ur Specific [place] 1.015 Urine Protein 500 H Urine Glucose (UA) Normal Urine Ketones 15 H Urine Occult Blood 250 H Urine Nitrite Negative Urine Bilirubin Negative Urine Urobilinogen Normal Ur Leukocyte Esterase 500 H Urine RBC > 100 SEEN Urine WBC 50-100 SEEN Ur Squamous Epith Cells 5-10 SEEN Triple Phos Crystals 1+ Urine Bacteria 2+ Urine Mucus 0 SEEN Urine Test Negative Discharge Plan Triage Chief Complaint: Complaint ED Provider: Manny Montana Dx/Rx/DC Orders Instructions: ED Cystitis Female Adult Prescriptions: New cephalexin 500 mg capsule 500 mg PO Q12 Qty: 14 0RF No Action docusate sodium 50 mg Capsule 50 mg PO PRN PRN (Reason: Constipation) phenazopyridine [Pyridium] 200 mg tablet 200 mg PO TID PRN PRN (Reason: Bladder Spasms) 7 Days Qty: 30 0RF Excedrin Migraine 250-250-65 mg Tablet 1 tab PO Q6H PRN (Reason: Migraine Headache) cephalexin 500 mg capsule 500 mg PO TID Label Comments: TAKE 1 CAPSULE BY MOUTH THREE TIMES DAILY oxycodone-acetaminophen [Percocet] 5-325 mg tablet 1 tab PO Q8H PRN (Reason: pain) 3 Days Qty: 10 0RF Primary Care Provider: Francia Lin Referrals: Francia Lin MD [Primary Care Provider] - Disposition Disposition: Home, Self Care
[2023-01-26] MEDS: 0.9% Normal Saline 1,000 ML 999 ML IV (09:40)
[2023-01-26 09:45] LABS: Absolute Lymphocyte Count 2.28 X10^3/uL (0.83-4.51); Absolute Neutrophil Count 5.2 X10^3/uL (2.0-7.7); Basophil# 0.04 X10^3/uL; Basophil% 0.5 % (0-1); Eosinophil# 0.06 X10^3/uL; Eosinophils% 0.8 % (0-5); Hematocrit 40.5 % (37-47); Lymphocyte # 2.28 X10^3/ul (0.83-4.51); Lymphocyte % 28.8 % (19-41); Mean Corp Hgb Conc 34.6 g/dL (32-36); Mean Corpuscular Hgb 30.9 pg (27.0-32.0); Mean Corpuscular Volume 89.4 fL (81-99); Mean Platelet Vol. 10.5 fl (6.2-12.0); Monocyte# 0.35 X10^3/uL; Monocyte% 4.4 % (0-10); NRBC Flagged by Analyzer 0 % (0-5); Neutrophil # 5.18 X10^3/uL (2.7-7.7); Neutrophil % 65.2 % (47-70); Platelet Count 248 K/mm3 (150-450); RBC Distribution Width CV 11.9 % (11.6-14.6); RBC Distribution Width SD 38.6 fl (35.1-43.9); Red Blood Count 4.53 M/mm3 (4.2-5.4); White Blood Count 7.9 K/mm3 (4.4-11.0)
[2023-01-26 09:59] LABS: ALB/GLOB Ratio 1.2 RATIO (0.9-2.4); AST(SGOT) 10 U/L (15-37); Alanine Aminotransfer ALT/SGPT 12 U/L (13-56); Albumin, Serum 4.2 g/dL (3.2-5.0); Alkaline Phosphatase 66 U/L (45-117); Anion Gap 7 (5-15); BUN 15 mg/dL (7-18); Chloride 107 mmol/L (98-107); Creatinine, Serum 0.79 mg/dL (0.55-1.02); EST Glomerular Filtration Rate 93 mL/min (>60); Est Glom Filt Rate - Afr Amer 113 mL/min (>60); Estimated Creatinine Clearance 80.36 ml/min; Globulin 3.4 g/dL (2.2-4.2); Glucose 95 mg/dL (74-106); Magnesium 2.3 mg/dL (1.6-2.6); Potassium 3.9 mmol/L (3.5-5.1); Protein, Total 7.6 g/dL (6.4-8.2); Sodium Level 141 mmol/L (136-145)
[2023-01-26] MEDS: Ketorolac 15 MG/ML Vial IV (10:02)
[2023-01-26] MEDS: Cephalexin 250 MG Capsule 500 MG PO (11:28)
== END 2023-01-26 11:31 | disposition home or self-care (01) ==
PROVIDERS: Emergency Provider Student in an Organized Health Care Education/Training Program; PCP Internal Medicine; Visit Provider Student in an Organized Health Care Education/Training Program
DX: N39.0 Urinary tract infection, site not specified (principal); F17.290 Nicotine dependence, other tobacco product, uncomplicated; Z87.440 Personal history of urinary (tract) infections; R30.0 Dysuria; R31.9 Hematuria, unspecified; R35.0 Frequency of micturition
CPT/HCPCS: 80053; 81001; 81025; 83735; 85025; 87086; 87088; 96361; 96374; 99283; J7030; A4216

== ENCOUNTER → 2023-06-14 | Outpatient (CLI) | payer MEDICAID, SELFPAY ==
[2023-06-18 09:08] LABS: Chlamydia By Nucleic Acid AMP Negative (Negative); Gonococcus By Nucleic Acid AMP Negative (Negative)
[2023-06-19 19:41] LABS: HPV Reflexed? NOT INDICATED
== END | disposition home or self-care (01) ==
LOC: LABSPEC 12:30
PROVIDERS: PCP Internal Medicine; Referring Provider Advanced Practice Midwife; Visit Provider Advanced Practice Midwife
DX: Z12.4 Encounter for screening for malignant neoplasm of cervix (principal); N30.10 Interstitial cystitis (chronic) without hematuria; N32.89 Other specified disorders of bladder; Z11.3 Encounter for screening for infections with a predominantly sexual mode of transmission
CPT/HCPCS: 87077; 87086; 87088; 87186; 87491; 87591; 88175; G0145

== ENCOUNTER 2023-07-19 13:49 | Emergency (ER) | payer MEDICAID, SELFPAY ==
[2023-07-19 13:50] VITALS: BP 129/88; PULSE 88; RESP 4; TEMP 37; O2SAT 98; BMI 17.9
--- NOTE | 2023-07-19 14:18 | EX.ED.DYSGE1 ---
HPI History of Present Illness Chief Complaint: Other, Pain/Inj Detail of Chief Complaint: Pain in abdomen and legs and back Informant: patient Narrative Narrative: Patient presents the emergency department with for complaints of pain in her arms and her legs intermittently for several weeks. Patient states that she has a history of interstitial cystitis for which she is on oxybutynin. She denies recent illness. She denies fevers or chills. She denies dysuria or urgency or frequency. Denies hematuria. She denies falls or injuries to her neck or back. Currently pain in her arms is from the elbows down to her hands. Pain in her legs is from her back all the way down to her toes. Bilaterally. No history of autoimmune disease or history of MS. PFSH PFS Medical History Alcohol use Anemia Bladder ulcer Dietary restriction Easy bruising Gestational hypertension History of anxiety History of depression Marijuana use Migraine Vapes nicotine containing substance Home Medications jbgkxwf-hcsythuedxxcc-qtjjygaa 250 mg-250 mg-65 mg tablet (Excedrin Migraine) 1 tab PO Q6H PRN Migraine Headache 08/30/22 [History Last Taken Unknown] cephalexin 500 mg capsule 500 mg PO BID #14 caps 06/14/23 [Rx Last Taken Unknown] naproxen 500 mg tablet 500 mg PO DAILY 06/14/23 [History Last Taken Unknown] norelgestromin 150 mcg-e.estradiol 35 mcg/24 hr weekly transderm patch (Xulane) 1 patch transdermal Q7D #3 patches 06/14/23 [Rx Last Taken Unknown] oxybutynin chloride 5 mg tablet 5 mg PO DAILY 06/14/23 [History Last Taken Unknown] cephalexin 500 mg capsule 500 mg PO Q6 #28 CAPSULES 07/19/23 [Rx Last Taken Unknown] oxycodone-acetaminophen 5 mg-325 mg tablet (Percocet) 1 tab PO Q8H PRN pain 3 days #10 tabs 07/19/23 [Rx Last Taken Unknown] Allergy/AdvReac Type Severity Reaction Status Date / Time amitriptyline AdvReac Intermediate confusion Verified 06/14/23 09:46 Family History Grandmother Diabetes Breast cancer Grandfather Diabetes Yepvn-4-cheshwbnvwp deficiency Surgical History delivery delivered History of cystoscopy Social History Smoking Status: Current every day smoker tobacco type: e-cigarettes Electronic Cigarette Use: with nicotine alcohol intake: never substance use type: does not use caffeine: Yes (rarely) what type of physical activity do you participate in: walking and other details: 20,000 steps per day seatbelt use: always do you feel safe at home: Yes additional social history: Boyfriengwyn-Gerardo Goodson Patient works at [employer] ROS ED Review of Systems ROS Unobtainable: other Constitutional Constitutional ED: Reports lethargy; Denies chills, fever(s), sweats or weight loss Eyes Eyes: Denies blurry vision, change in vision or diplopia ENT ENT ED: Denies rhinorrhea or sore throat Cardiovascular Cardiovascular: Reports chest pain and racing heartbeat; Denies orthopnea Respiratory/Chest Respiratory/Chest: Denies cough, dyspnea, dyspnea on exertion, orthopnea or sputum Gastrointestinal Gastrointestinal: Reports abdominal pain; Denies diarrhea, nausea or vomiting Genitourinary Genitourinary ED: Denies dysuria, hematuria or urinary frequency Musculoskeletal Musculoskeletal: Reports back pain and other Details: Bilateral arm and leg pain ; Denies arthralgias, myalgias or neck pain Integumentary Denies abscess, Abrasions or rash Neurologic Neurologic: Denies headache(s) or weakness Psychiatric Psychiatric: Denies anxiety, depression or suicidal thoughts Endocrine Endocrinology: Denies polydipsia, polyphagia or polyuria Hematologic/Lymphatic Hematologic/Lymphatic: Denies easy bleeding, easy bruising or lymphadenopathy Allergic/Immunologic Allergic/Immunologic ED: Denies mouth swelling, tongue swelling or urticaria EXAM Physical Exam Const Vital Signs: 07/19/23 13:50 Temperature 98.6 F Temperature Source Temporal Pulse Rate 88 Respiratory Rate 4 L Blood Pressure 129/88 H Blood Pressure Mean 101 Pulse Ox 98 Oxygen Delivery Method Room Air Positive well nourished and well developed General Appearance ED: well developed and NAD HEENT Reports TM's clear and moist mucous membranes normocephalic and atraumatic; Negative for trauma or tenderness Tympanic Membrane ED: Yes TM's clear Eyes PERRL and EOMs intact bilaterally General Eye ED: Negative for pale conjunctiva or scleral icterus Neck no lymphadenopathy, supple and no JVD General: Negative for tenderness Chest Wall inspection of chest normal and palpation of chest normal Chest: Negative for tenderness Resp normal respiratory effort and clear to auscultation bilaterally Effort and Inspection: Negative for respiratory distress or pain with movement Auscultation: Negative for rhonchi, wheezes or diminished lung sounds Cardio regular rate, regular rhythm, S1 normal heart sound, S2 normal heart sound and no murmurs Peripheral Pulses: pulses 2+ throughout GI normal to inspection, nondistended, normoactive bowel sounds, soft to palpation, non-distended and no masses GI Narrative: This over suprapubic area. There is mild guarding. There is no rebound, rigidity, or signs. No mass palpated. Back/Spine no CVA tenderness and no thoracic nor lumbar tenderness Extremity normal to inspection General Extremety ED: Negative for edema General Extremity: Negative for edema Neuro oriented x3, CN's II-XII intact bilaterally, no sensory deficits noted and gait normal Sensorium / Orientation: awake, alert, oriented to person, oriented to place and oriented to time Motor Exam: strength 5/5 throughout and strength abnormal Psych mental status grossly normal Skin no rashes or lesions noted and no wounds MDM MDM MDM Narrative Medical decision making narrative: Patient with history of interstitial cystitis. Presents with vague pains in her arms and legs. As well as her back. She denies significant urinary symptoms. IV line established. CBC with differential normal white count of 7.3 with hemoglobin 13 and platelet count of 258. Chemistries unremarkable. Urinalysis was positive for nitrites as well as 500 leukocyte Estrace and 20-50 WBCs and 20-50 RBCs. She had +3 bacteria. Urine culture was sent. Patient was started on Rocephin. She was given Toradol. Will treat her UTI and advised her to follow-up with her urologist. Patient will be given a prescription for a few [place] for pain. Etiology of pain in the arms and legs unclear. Suspect may be related to her constellation of symptoms from her cystitis. No history of renal disease and she had no injury or trauma. Lab Data Attestation: I reviewed the patient's lab results. Labs: Laboratory Results - last 24 hr 07/19/23 14:37 WBC 7.3 RBC 4.38 Hgb 13.2 Hct 39.8 MCV 90.9 MCH 30.1 MCHC 33.2 RDW Std Deviation 39.9 RDW Coeff of [place] 12.0 Plt Count 268 MPV 10.8 Immature Gran % (Auto) 0.100 Neut % (Auto) 58.3 Lymph % (Auto) 34.7 [place] % (Auto) 5.5 Eos % (Auto) 0.8 Baso % (Auto) 0.6 Absolute Neuts (auto) 4.2 Absolute Lymphs (auto) 2.52 Nucleated RBC % 0 ESR 5 Sodium 139 Potassium 3.8 Chloride 108 H Carbon Dioxide 28.0 Anion Gap 3 L BUN 11 Creatinine 0.92 Estim Creat Clear Calc 64.67 Est GFR (MDRD) Af Amer 94 Est GFR (MDRD) Non-Af 77 BUN/Creatinine Ratio 11.9 Glucose 92 Calcium 9.5 Serum , Qual NEGATIVE Urine Color Yellow Urine Clarity Cloudy Urine pH 6.0 Ur Specific [place] 1.020 Urine Protein 100 H Urine Glucose (UA) Normal Urine Ketones 5 H Urine Occult Blood 250 H Urine Nitrite Positive H Urine Bilirubin Negative Urine Urobilinogen Normal Ur Leukocyte Esterase 500 H Urine RBC 25-50 SEEN Urine WBC 25-50 SEEN Ur Squamous Epith Cells 10-25 SEEN Urine Bacteria 3+ Urine Mucus 0 SEEN Discharge Plan Triage Chief Complaint: Other, Pain/Inj ED Provider: Lolly Judge Dx/Rx/DC Orders Clinical Impression: UTI (urinary tract infection), Pain Instructions: ED Pain, Acute, Uncertain Cause, ED Cystitis Female Adult Prescriptions: New oxycodone-acetaminophen [Percocet] 5-325 mg tablet 1 tab PO Q8H PRN (Reason: pain) 3 Days Qty: 10 0RF cephalexin [cephalexin] 500 mg capsule 500 mg PO Q6 Qty: 28 0RF No Action naproxen 500 mg tablet 500 mg PO DAILY oxybutynin chloride 5 mg tablet 5 mg PO DAILY Xulane 150-35 mcg/24 hr patch weekly 1 patch transdermal Q7D Qty: 3 0RF cephalexin 500 mg capsule 500 mg PO BID Qty: 14 0RF Rx Instructions: Take 2 times daily until gone Excedrin Migraine 250-250-65 mg Tablet 1 tab PO Q6H PRN (Reason: Migraine Headache) Primary Care Provider: Francia Lin Referrals: Geneva Schilling MD [Med Staff - Active Staff] - 3-5 Days Francia Lin MD [Primary Care Provider] - Disposition Disposition: Home, Self Care
[2023-07-19] MEDS: Ketorolac 30 MG/ML Syringe IV (14:34)
[2023-07-19] MEDS: 0.9% Normal Saline (1000mL) 1,000 ML 150 ML IV (14:34)
[2023-07-19 14:40] LABS: Mucous, Urine 0 SEEN /hpf (<or=2+)
[2023-07-19 14:44] LABS: Erythrocyte Sedimentation Rate 5 mm/hr (0-30)
[2023-07-19 14:46] LABS: Absolute Lymphocyte Count 2.52 X10^3/uL (0.83-4.51); Absolute Neutrophil Count 4.2 X10^3/uL (2.0-7.7); Basophil# 0.04 X10^3/uL; Basophil% 0.6 % (0-1); Eosinophil# 0.06 X10^3/uL; Eosinophils% 0.8 % (0-5); Hematocrit 39.8 % (37-47); Hemoglobin 13.2 g/dL (12.0-15.0); Lymphocyte # 2.52 X10^3/ul (0.83-4.51); Lymphocyte % 34.7 % (19-41); Mean Corp Hgb Conc 33.2 g/dL (32-36); Mean Corpuscular Hgb 30.1 pg (27.0-32.0); Mean Corpuscular Volume 90.9 fL (81-99); Mean Platelet Vol. 10.8 fl (6.2-12.0); Monocyte% 5.5 % (0-10); NRBC Flagged by Analyzer 0 % (0-5); Neutrophil # 4.23 X10^3/uL (2.7-7.7); Neutrophil % 58.3 % (47-70); Platelet Count 268 K/mm3 (150-450); RBC Distribution Width SD 39.9 fl (35.1-43.9); Red Blood Count 4.38 M/mm3 (4.2-5.4); White Blood Count 7.3 K/mm3 (4.4-11.0)
[2023-07-19 14:47] LABS: Color, Urine Yellow (Yellow); Glucose, Dipstick Normal (Normal); Ketone-Dipstick 5 mg/dl (Negative); Leukocyte Esterase-Dipstick 500 /ul (Negative); Nitrite-Dipstick Positive (Negative); Occult Blood-Urine 250 /ul (Negative); Protein-Dipstick 100 mg/dl (Negative); Urine Bilirubin Dipstick Negative (Negative); Urine Clarity Cloudy (Clear); Urine Urobilinogen Normal (Normal)
[2023-07-19 14:54] LABS: Red Blood Cells-Urine 25-50 SEEN /hpf (0-5); White Blood Cells 25-50 SEEN /hpf (0-5)
[2023-07-19 14:55] LABS: Bacteria 3+ /hpf (None Seen); Squamous Epithelial Cells - UA 10-25 SEEN /hpf (5-10)
[2023-07-19 15:17] LABS: Anion Gap 3 (5-15); BUN 11 mg/dL (7-18); BUN/Creat Ratio 11.9 RATIO (10-20); Calcium,Total 9.5 mg/dL (8.5-10.1); Chloride 108 mmol/L (98-107); Creatinine, Serum 0.92 mg/dL (0.55-1.02); EST Glomerular Filtration Rate 77 mL/min (>60); Est Glom Filt Rate - Afr Amer 94 mL/min (>60); Estimated Creatinine Clearance 64.67 ml/min; Glucose 92 mg/dL (74-106); Potassium 3.8 mmol/L (3.5-5.1); Sodium Level 139 mmol/L (136-145)
[2023-07-19 15:32] LABS: Pregnancy, Serum, hCG Quali. NEGATIVE Negative (0-9 Nonpreg)
[2023-07-19 15:43] LABS: Internal QC Validated? YES +Cl - CLEAR BKGD
[2023-07-19] MEDS: Ceftriaxone 1 GM/50 ML BAG IV (16:02)
[2023-07-19 16:23] VITALS: BP 125/74; PULSE 76; RESP 15; O2SAT 98
== END 2023-07-19 16:24 | disposition home or self-care (01) ==
PROVIDERS: Emergency Provider Emergency Medicine; PCP Internal Medicine; Visit Provider Emergency Medicine
DX: N30.10 Interstitial cystitis (chronic) without hematuria (principal); F17.210 Nicotine dependence, cigarettes, uncomplicated; F12.90 Cannabis use, unspecified, uncomplicated; Z79.899 Other long term (current) drug therapy; Z79.82 Long term (current) use of aspirin
CPT/HCPCS: 80048; 81001; 84703; 85025; 85652; 87077; 87086; 87088; 87186; 96361; 96365; 96375; 99283; J7030; A4216

== ENCOUNTER → 2023-07-25 | Outpatient (CLI) | payer MEDICAID, SELFPAY ==
--- NOTE | 2023-07-25 | EMB_PTH ---
PATIENT: ELIANA GUILLEN LOC: [facility] U#:[id number] AGE/SX: 28/F ROOM: RE07/25/[address]: Dr. Nohelia Munroe DO : 1995 BED: DIS: 07/25/2023 SPEC #: [id number] RECD: 07/26/23 10:17 STATUS: JERAMY ABY #: [id number] GRISEL: 07/25/23 00:[address]: Nohelia Munroe DEPT: SURGICAL PATHOLOGY RECD BY: Noa Vick ENTERED: 07/26/23 10:19 SP TYPE: ENDOM BX/C SOLANGE DR: Dr. Francia Lin MD Tissues: A - Endometrium, NOS B - Endocervical Procedures: Surgery Specimen Level IV HEADER OPERATION: Colposcopy PRE-OP DIAGNOSIS: LGSIL TISSUE SUBMITTED: A - Endocervical curettings, B - 3 o'clock MICROSCOPIC DIAGNOSIS A. Endocervical curettings: Scant fragment of benign ecto- and endocervical epithelium and mucous. B. 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 Chronic inflammation. See comment. GAYATRI:andrwe 07/30/2023 COMMENT B. Immunohistochemistry ([id number]) for surrogate HPV marker (p16) supports the above diagnosis. MICROSCOPIC DESCRIPTION Slides are reviewed. GROSS DESCRIPTION A - Received in fixative is one container labeled with the patient's name and designated ECC. The specimen consists of a scant amount of soft tissue. The specimen is totally submitted for cell block preparation. B - Received in fixative is one container labeled with the patient's name and designated 3 o'clock. The specimen consists of one irregular fragment of light [place] soft tissue that measures 0.3 x 0.3 x 0.1 cm. The specimen is totally submitted in one cassette. / GAYATRI:andrew 07/26/2023 TC:5 [facility]: 84201 x2
--- NOTE | 2023-07-25 | IMM_PTH ---
PATIENT: ELIANA GUILLEN LOC: [facility] U#:[id number] AGE/SX: 28/F ROOM: RE07/25/[address]: Dr. Nohelia Munroe DO : 1995 BED: DIS: 07/25/2023 SPEC #: [id number] RECD: 07/30/23 13:10 STATUS: JERAMY REQ #: [id number] GRISEL: 07/25/23 00:[address]: Nohelia Munroe DEPT: IMMUNOHISTOCHEMISTRY RECD BY: Cristy Gan ENTERED: 07/30/23 13:11 SP TYPE: IMMUNO OTHR DR: Dr. Francia Lin MD Tissues: B - Uterine cervix, NOS Procedures: p16 (initial) KI-67 (add) PHYSICIAN & INSTITUTION [place] [id number] SPECIMEN INFORMATION: Tissue Source: B - Cervix, 3 o'clock Clinical Info: BOZENA Specimen Number: [id number] CPT code: 46792, 66838 METHODOLOGY: Deparaffinized sections of prefer/formalin-fixed tissue or PAP/DQ stained slides are incubated with monoclonal/polyclonal antibodies/oligonucleotide probes. Localization is made via biotin free immunoperoxidase method. Appropriate controls are performed and reacted as expected. Results on target cell population are indicated in the following table: RESULTS: ANTIBODY / CLONE RESULT Block B P16 (E6H4) positive, patchy staining Ki-67 (30-9) positive, low to moderate These tests were developed and their performance characteristics determined by [facility]. They may not have been cleared or approved by the U.S. Food and Drug Administration. The FDA has determined that such clearance or approval is not necessary. The above immunohistochemical/dualISH markers are ordered and reviewed by the Pathologist. INTERPRETATION: Ilene Cervix, 3 o'clock, biopsy: Focal mild squamous dysplasia. SJ:andrew 07/31/2023
== END | disposition home or self-care (01) ==
LOC: LABSPEC 15:34
PROVIDERS: PCP Internal Medicine; Visit Provider Obstetrics & Gynecology
DX: R87.612 Low grade squamous intraepithelial lesion on cytologic smear of cervix (LGSIL) (principal); N72 Inflammatory disease of cervix uteri
CPT/HCPCS: 88305; 88341; 88342

== ENCOUNTER 2023-08-28 13:52 | Emergency (ER) | payer MEDICAID, SELFPAY ==
[2023-08-28 13:53] VITALS: BP 109/65; PULSE 108; RESP 18; TEMP 36.9; O2SAT 100; BMI 19.0
[2023-08-28 15:00] LABS: Absolute Lymphocyte Count 2.35 X10^3/uL (0.83-4.51); Basophil# 0.04 X10^3/uL; Basophil% 0.6 % (0-1); Eosinophil# 0.18 X10^3/uL; Eosinophils% 2.6 % (0-5); Hematocrit 40.5 % (37-47); Hemoglobin 13.3 g/dL (12.0-15.0); Lymphocyte # 2.35 X10^3/ul (0.83-4.51); Lymphocyte % 33.4 % (19-41); Mean Corp Hgb Conc 32.8 g/dL (32-36); Mean Corpuscular Hgb 29.5 pg (27.0-32.0); Mean Corpuscular Volume 89.8 fL (81-99); Mean Platelet Vol. 10.3 fl (6.2-12.0); Monocyte# 0.44 X10^3/uL; Monocyte% 6.3 % (0-10); NRBC Flagged by Analyzer 0 % (0-5); Neutrophil % 56.8 % (47-70); Platelet Count 295 K/mm3 (150-450); RBC Distribution Width SD 39.4 fl (35.1-43.9); Red Blood Count 4.51 M/mm3 (4.2-5.4)
[2023-08-28 15:19] LABS: ALB/GLOB Ratio 1.1 RATIO (0.9-2.4); AST(SGOT) 13 U/L (15-37); Alanine Aminotransfer ALT/SGPT 17 U/L (13-56); Albumin, Serum 3.8 g/dL (3.2-5.0); Alkaline Phosphatase 69 U/L (45-117); Anion Gap 3 (5-15); BUN 12 mg/dL (7-18); BUN/Creat Ratio 14.3 RATIO (10-20); Calcium,Total 9.2 mg/dL (8.5-10.1); Chloride 111 mmol/L (98-107); Creatinine, Serum 0.84 mg/dL (0.55-1.02); EST Glomerular Filtration Rate 86 mL/min (>60); Est Glom Filt Rate - Afr Amer 104 mL/min (>60); Estimated Creatinine Clearance 74.92 ml/min; Globulin 3.4 g/dL (2.2-4.2); Glucose 81 mg/dL (74-106); Potassium 4.2 mmol/L (3.5-5.1); Protein, Total 7.2 g/dL (6.4-8.2); Sodium Level 142 mmol/L (136-145)
[2023-08-28 15:33] LABS: Internal QC Validated? YES +Cl - CLEAR BKGD; Pregnancy, Serum, hCG Quali. NEGATIVE Negative
[2023-08-28 15:52] VITALS: BP 113/74; PULSE 77; RESP 16; O2SAT 99
[2023-08-28 16:31] LABS: Mucous, Urine 0 SEEN /hpf (<or=2+)
[2023-08-28 16:40] LABS: Color, Urine Yellow (Yellow); Glucose, Dipstick Normal (Normal); Ketone-Dipstick Negative (Negative); Leukocyte Esterase-Dipstick 100 /ul (Negative); Nitrite-Dipstick Negative (Negative); Occult Blood-Urine 150 /ul (Negative); Protein-Dipstick 15 mg/dl (Negative); Specific Gravity, Urine 1.025 (1.002-1.030); Urine Bilirubin Dipstick Negative (Negative); Urine Clarity Sl. Cloudy (Clear); Urine Urobilinogen Normal (Normal)
--- NOTE | 2023-08-28 16:49 | ED.VIS.GI ---
HPI HPI - GI History of Present Illness Chief Complaint: GI Bleed Informant: patient Abdominal Pain/Flank Pain Onset: Days Narrative Narrative: Patient presents secondary to bright red blood mixed with her stool for the past week. She has had softer stools than normal. She talked to her urologist who recommended she come in to be evaluated. She is a history of interstitial cystitis so she has chronic abdominal pain. She is currently on Percocet. She denies personal or family history of IBS, Crohn's disease, colon cancer. She has never had a colonoscopy. PFSH PFSH Medical History Alcohol use Anemia Bladder ulcer Dietary restriction Easy bruising Gestational hypertension History of anxiety History of depression Marijuana use Migraine Vapes nicotine containing substance Home Medications uusxcnl-wzgpxexcekewg-pzgzxblh 250 mg-250 mg-65 mg tablet (Excedrin Migraine) 1 tab PO Q6H PRN Migraine Headache 08/30/22 [History Last Taken Unknown] norelgestromin 150 mcg-e.estradiol 35 mcg/24 hr weekly transderm patch (Xulane) 1 patch transdermal Q7D #3 patches 06/14/23 [Rx Last Taken Unknown] oxybutynin chloride 5 mg tablet 5 mg PO DAILY 06/14/23 [History Last Taken Unknown] Allergy/AdvReac Type Severity Reaction Status Date / Time amitriptyline AdvReac Intermediate confusion Verified 08/28/23 13:53 Family History Grandmother Diabetes Breast cancer Grandfather Diabetes Yfusy-3-piyyutnqsls deficiency Surgical History delivery delivered History of cystoscopy Social History Smoking Status: Current every day smoker tobacco type: e-cigarettes Electronic Cigarette Use: with nicotine alcohol intake: never substance use type: does not use caffeine: Yes (rarely) what type of physical activity do you participate in: walking and other details: 20,000 steps per day seatbelt use: always do you feel safe at home: Yes additional social history: Boyfriend-Gerardo Goodson Patient works at [employer] ROS ED Constitutional Constitutional ED: Denies chills or fever(s) Eyes Eyes: Denies discharge from eye(s) ENT ENT ED: Denies discharge from eye(s), rhinorrhea or sore throat Cardiovascular Cardiovascular: Denies chest pain or palpitations Respiratory/Chest Respiratory/Chest: Denies cough or dyspnea Gastrointestinal Gastrointestinal: Reports abdominal pain and other Details: Bright red blood mixed with stool ; Denies diarrhea, nausea or vomiting Genitourinary Genitourinary ED: Denies dysuria Musculoskeletal Musculoskeletal: Denies back pain or extremity pain Integumentary Denies Abrasions or rash Neurologic Neurologic: Denies headache(s) or weakness Psychiatric Psychiatric: Denies anxiety or depression Allergic/Immunologic Allergic/Immunologic ED: Denies lip swelling or urticaria EXAM Physical Exam Const Vital Signs: 08/28/23 13:53 08/28/23 15:52 08/28/23 16:54 Temperature 98.4 F Temperature Source Temporal Pulse Rate 108 H 77 77 Respiratory Rate 18 16 16 Blood Pressure 109/65 113/74 113/74 Blood Pressure Mean 79 87 87 Pulse Ox 100 99 99 Oxygen Delivery Method Room Air Room Air Room Air 08/28/23 19:48 Temperature Temperature Source Pulse Rate 68 Respiratory Rate 17 Blood Pressure 111/66 Blood Pressure Mean 81 Pulse Ox 99 Oxygen Delivery Method Positive well nourished and well developed General Appearance ED: well developed HEENT Reports moist mucous membranes Eyes EOMs intact bilaterally Resp normal respiratory effort and clear to auscultation bilaterally Cardio regular rate and regular rhythm GI GI Narrative: Abdomen soft with suprapubic tenderness. No guarding or rebound. Active bowel sounds noted throughout. Neuro moves all extremities Motor Exam: strength 5/5 throughout Psych mental status grossly normal Skin no wounds MDM MDM MDM Narrative Medical decision making narrative: IV line established. Labwork obtained to evaluate for leukocytosis, anemia, and electrolyte derangement. CT scan abdomen pelvis with IV contrast obtained to evaluate for any bowel wall thickening. History & Record Review Discussion w/independent historian: Patient Additional record(s) reviewed:: Prior labs Lab Data Attestation: I reviewed the patient's lab results. Labs: Laboratory Results - last 24 hr 08/28/23 08/28/23 14:43 16:25 WBC 7.0 RBC 4.51 Hgb 13.3 Hct 40.5 MCV 89.8 MCH 29.5 MCHC 32.8 RDW Std Deviation 39.4 RDW Coeff of Cosme 12.0 Plt Count 295 MPV 10.3 Immature Gran % (Auto) 0.300 Neut % (Auto) 56.8 Lymph % (Auto) 33.4 [place] % (Auto) 6.3 Eos % (Auto) 2.6 Baso % (Auto) 0.6 Absolute Neuts (auto) 4.0 Absolute Lymphs (auto) 2.35 Nucleated RBC % 0 Sodium 142 Potassium 4.2 Chloride 111 H Carbon Dioxide 28.0 Anion Gap 3 L BUN 12 Creatinine 0.84 Estim Creat Clear Calc 74.92 Est GFR (MDRD) Af Amer 104 Est GFR (MDRD) Non-Af 86 BUN/Creatinine Ratio 14.3 Glucose 81 Calcium 9.2 Total Bilirubin 0.30 AST 13 L ALT 17 Alkaline Phosphatase 69 Total Protein 7.2 Albumin 3.8 Globulin 3.4 Albumin/Globulin Ratio 1.1 Serum , Qual NEGATIVE Urine Color Yellow Urine Clarity Sl. Cloudy Urine pH 6.0 Ur Specific [place] 1.025 Urine Protein 15 H Urine Glucose (UA) Normal Urine Ketones Negative Urine Occult Blood 150 H Urine Nitrite Negative Urine Bilirubin Negative Urine Urobilinogen Normal Ur Leukocyte Esterase 100 H Urine RBC 5-10 SEEN Urine WBC 25-50 SEEN Ur Squamous Epith Cells 5-10 SEEN Urine Bacteria RARE Urine Mucus 0 SEEN Radiography Diagnostic Testing: Clinical Impression(s) from Imaging Studies Abdomen/Pelvis CT 08/28/23 17:18 IMPRESSION: 3.5 cm left adnexal region cyst could be causing pain or discomfort in the left lower quadrant No suspicious solid organ abnormality Small bowel ileus likely due to retained stool throughout the colon No free intraperitoneal fluid, air, or suspicious adenopathy Electronically Signed: Joshua Cordon MD at 17:41 EST Reading Location ID and State: [facility] / [place] , Service support , Treatment and Re-Evaluation :: CBC reveals white count of 7.0 the hemoglobin of 13.3. Normal differential. Chemistry studies unremarkable. LFTs normal. test negative. Urinalysis reveals rare bacteria 5-10 epithelial cells. 25-50 white cells and negative nitrites. CT scan of the abdomen and pelvis with IV contrast reveals a 3.5 cm left adnexal cyst. No suspicious solid organ abnormality. No intraperitoneal fluid, air, or suspicious adenopathy. On repeat evaluation patient resting comfortably. She was recently started on Percocet for pain. She does report straining some for bowel movements. I think she likely has a small tear or possibly internal hemorrhoid that might be irritated and bleeding. There is no evidence of bowel wall thickening or acute colon abnormality. Patient be discharged home to follow-up with her primary care physician along with her urologist. Discharge Plan Triage Chief Complaint: GI Bleed ED Provider: Nohelia Lawson Dx/Rx/DC Orders Clinical Impression: Ovarian cyst, GI bleed Instructions: ED Ovarian Cyst, ED Lower GI Bleeding (Stable) Prescriptions: No Action oxybutynin chloride 5 mg tablet 5 mg PO DAILY Xulane 150-35 mcg/24 hr patch weekly 1 patch transdermal Q7D Qty: 3 0RF Excedrin Migraine 250-250-65 mg Tablet 1 tab PO Q6H PRN (Reason: Migraine Headache) Primary Care Provider: Francia Lin Referrals: Francia Lin MD [Primary Care Provider] - Darrin Segovia DO [Med Staff - Active Staff] - As Needed Disposition Disposition: Home, Self Care Discharge Date/Time: 08/28/23 19:48
[2023-08-28 16:54] VITALS: BP 113/74; PULSE 77; RESP 16; O2SAT 99
[2023-08-28 17:04] LABS: Squamous Epithelial Cells - UA 5-10 SEEN /hpf (5-10); White Blood Cells 25-50 SEEN /hpf (0-5)
[2023-08-28 17:05] LABS: Bacteria RARE /hpf (None Seen); Red Blood Cells-Urine 5-10 SEEN /hpf (0-5)
--- NOTE | 2023-08-28 17:18 | CT_ITS ---
STUDY: CT ABDOMEN AND PELVIS WITH CONTRAST REASON FOR EXAM: Female, 28 years old. Anemia, possible GI bleed RADIATION DOSAGE (If Supplied By Facility): CTDIvol = ( 7.95 ) mGy, DLP = ( 306.56 ) mGycm TECHNIQUE: Transaxial images were obtained from the dome of the diaphragm to the symphysis pubis without oral contrast. IV 75mL Isovue-370 was administered. Sagittal and coronal images were reconstructed. Individualized dose optimization techniques were used for this CT. COMPARISON: 04/25/2022 FINDINGS: The visualized lung bases are unremarkable. The visualized portions of the heart are within normal limits. Normal liver. Normal gallbladder and extrahepatic biliary system. Normal spleen. Normal pancreas. Normal bilateral adrenal glands. Normal right kidney. Normal left kidney. Normal visualized stomach. Nondistended fluid-filled small bowel loops are noted consistent with small bowel ileus which may be due to retained stool throughout the majority of the colon. Appendix not visualized. Normal abdominal aorta. Normal inferior vena cava. Normal retroperitoneum. Normal urinary bladder. Normal visualized uterus. There is a 3.5 cm left adnexal cyst without free fluid. No specific follow-up needed. However, the size of this cyst could be causing discomfort and pain in the left lower quadrant. Normal abdominal wall. Normal osseous structures. CT/Abdomen/Pelvis W IV Cont ONLY IMPRESSION: 3.5 cm left adnexal region cyst could be causing pain or discomfort in the left lower quadrant No suspicious solid organ abnormality Small bowel ileus likely due to retained stool throughout the colon No free intraperitoneal fluid, air, or suspicious adenopathy Electronically Signed: Joshua Cordon MD at 17:41 EST ,
[2023-08-28 19:48] VITALS: BP 111/66; PULSE 68; RESP 17; O2SAT 99
== END 2023-08-28 19:48 | disposition home or self-care (01) ==
PROVIDERS: Emergency Provider Emergency Medicine; PCP Internal Medicine; Visit Provider Emergency Medicine
DX: N83.202 Unspecified ovarian cyst, left side (principal); K92.1 Melena; R10.9 Unspecified abdominal pain; G89.29 Other chronic pain; F17.290 Nicotine dependence, other tobacco product, uncomplicated; Z79.899 Other long term (current) drug therapy
CPT/HCPCS: 74177; 80053; 81001; 84703; 85025; 99283; Q9967; A4216

== ENCOUNTER 2023-09-26 06:33 | Day surgery (SDC) | payer MEDICAID, SELFPAY ==
--- OUTSIDE RECORDS SUMMARY | 2023-09-26 06:40 | XMS RPT_ITS | CCD ---
Demographics Address [address] [place] [address] Home Phone Mobile Phone Preferred Language en Marital Status Single Nondenominational Affiliation Unknown Race White Ethnic Group Not or Lati no Author Name Unknown Address [address] [facility] [address] [place] [address] Organization [facility] Care Team Providers Care Proof Sorter Name Role Phone EMMA SCHILLING MD Primary Care Physician Unavailable Primary Care Provider Elkin Dial MD Primary Care Provider ELKIN LIN Primary Care Unavailable DEACON, RADAMES Y Referring Unavailable HAZEL NIETO, DR GRANGER Primary Care Physician JJ VELÁZQUEZ MD Attending Unavailable EMMA SCHILLING MD Primary Care Unavailable JOSEPH CHENG Attending Simon LIN MD, DR GRANGER Primary Care Unavailable JOSEPH CHENG Attending Simon LIN MD, DR GRANGER Primary Care Unavailable JOSEPH CHENG Attending Simon LIN MD, DR GRANGER Primary Care Unavailable JJ VELÁZQUEZ MD Attending Josias LIN MD, DR GRANGER Primary Care Unavailable SANTANA GIORDANO MD Consulting Unavailable CATALINA GUPTA MD Consulting Unavailable JJ VELÁZQUEZ MD Attending Josias LIN MD, DR GRANGER Primary Care Unavailable JOSEPH CHENG Attending DR ELKIN Salcido MD Primary Care Unavailable JOSEPH CHENG Attending EMMA Wagoner MD Primary Care Unavailable ELKIN LIN Attending Unavailable ELKIN LIN Primary Care Unavailable ELKIN LIN Primary Care Unavailable HAZEL ELKIN Primitivo Referring Unavailable DEACON, RADAMES Y Attending Unavailable LEKIN LIN Attending Unavailable HAZEL ELKIN Primitivo Primary Care Unavailable TALAMPAS, ELKIN D Referring Unavailable TALAMPAS, ELKIN D Attending Unavailable TALAMPAS, ELKIN D Primary Care Unavailable TALAMPAS, ELKIN D Primary Care Unavailable HUI NIXON Attending Unavailable TALAMPAS, ELKIN D Primary Care Unavailable MOOREINA Attending Unavailable TALAMPAS, ELKIN D Primary Care Unavailable MARILIA ROSALES Attending Unavailable TALAMPAS, ELKIN D Attending Unavailable TALAMPAS, ELKIN D Primary Care Unavailable TALAMPAS, ELKIN D Primary Care Unavailable RADAMES WORTHY Attending Unavailable TALAMPAS, ELKIN D Primary Care Unavailable TALAMPAS, ELKIN D Referring Unavailable Allergies Allergy Classification Reported Allergen(s) Allergy Type Date of Onset Reaction(s) Facility (20 sources) Bees; Translations: [BEES] Allergy to substance 6 Swelling, Shortness of Breath [facility] Work Phone: (20 sources) Bee Sting; Translations: [BEE STING] Allergy to substance 1 Hives, Swelling [facility] Work Phone: (9 sources) Amitriptyline; Translations: [amitriptyline] Drug Allergy 3 Dizziness (finding), Headache (finding), Clouded consciousness (finding), Intolerance [facility] (2 sources) Bee/Wasp/Ant venom Allergy to substance Weal (disorder), Swelling (finding), Difficulty breathing (finding) [facility] Medications Current Medications Medication Drug Class(es) Dates Sig (Normalized) Sig (Original) acetaminophen 325 mg / oxyCODONE hydrochloride 5 mg oral tablet (1 source) Opioid Agonist Start: 03-26-2023 End: 03-29-2023 take 1 tablet by mouth every four hours as needed for pain Percocet 5 mg-325 mg oral tablet Dose = 1 tab(s), Oral, q4h, PRN for pain, X 3 day(s), # 5 tab(s), 0 Refill(s), Pharmacy: [id number], Bladder pain, 157.5, cm, 03/26/23 9:41:00 EDT, Height, 47.6, kg, 03/26/23 9:41:00 EDT, Dosing Weight Start Date: 03/26/23 Stop Date: 8/25/23 Status: Ordered cephalexin 500 mg oral capsule (20 sources) Cephalosporin Antibacterial Start: 03-06-2023 End: 03-13-2023 cephalexin 500 mg oral capsule Dose : 500 mg = 1 cap(s), Oral, TID, X 7 day(s), # 21 cap(s), 0 Refill(s), 03/13/23 3:41:00 PM EDT, Pharmacy: [id number], UTI symptoms, 157.5, cm, 03/06/23 15:10:00 EDT, Height, 47.3, kg, 03/06/23 15:10:00 EDT, Dosing Weight Start Date: 03/06/23 Stop Date: 03/13/23 Status: Ordered Completed/Discontinued Medications Medication Drug Class(es) Dates Sig (Normalized) Sig (Original) amitriptyline hydrochloride 10 mg oral tablet (6 sources) Tricyclic Antidepressant Start: 01-29-2023 End: 03-07-2023 take 1 tablet by mouth once daily at bedtime amitriptyline (ELAVIL) 10 mg tablet Take 1 tablet by mouth daily at bedtime. 30 tablet 0 02/28/2023 03/07/2023 Discontinued Problems Active Problems Problem Classification Problem Date Documented Date Episodic/Chronic Anxiety disorders (20 sources) Posttraumatic stress disorder; Translations: [Post-traumatic stress disorder, unspecified] Onset: 11-08-2022 Chronic Genitourinary symptoms and ill-defined conditions (5 sources) Chronic urinary bladder pain; Translations: [Chronic bladder pain] Onset: 03-13-2023 03-06-2023 Chronic Headache; including migraine (4 sources) Migraine with aura; Translations: [Migraine with aura, not intractable, without status migrainosus] Onset: 01-29-2023 Chronic Headache; including migraine (5 sources) Acute headache; Translations: [Acute nonintractable headache, unspecified headache type] Episodic Headache; including migraine (3 sources) Headache; including migraine; Translations: [Chronic daily headache] Onset: 11-08-2022 Other connective tissue disease (1 source) Spasm; Translations: [Other muscle spasm] 04-28-2023 Episodic Other diseases of bladder and urethra (4 sources) Overactive bladder; Translations: [Overactive bladder] Onset: 03-13-2023 03-06-2023 Chronic Other diseases of bladder and urethra (3 sources) Squamous metaplasia of bladder 03-06-2023 Chronic Other diseases of bladder and urethra (2 sources) Other specified disorders of bladder; Translations: [Other specified disorders of bladder] Onset: 03-13-2023 Chronic Other diseases of bladder and urethra (1 source) Overactive bladder; Translations: [Overactive bladder] Onset: 03-13-2023 Chronic Other female genital disorders (19 sources) Abnormal uterine bleeding; Translations: [Abnormal uterine and vaginal bleeding, unspecified] Onset: 04-23-2022 11-08-2022 Chronic Residual codes; unclassified (1 source) Treatment not available; Translations: [Procedure and treatment not carried out for other reasons] Episodic Residual codes; unclassified (1 source) Procedure not done; Translations: [Procedure and treatment not carried out for other reasons] Episodic Urinary tract infections (20 sources) Chronic interstitial cystitis; Translations: [Interstitial cystitis (chronic) without hematuria] Onset: 06-06-2020 Chronic Urinary tract infections (5 sources) Eosinophilic cystitis; Translations: [Other cystitis without hematuria] Onset: 02-11-2023 Episodic Past or Other Problems Problem Classification Problem Date Documented Da te Episodic/Chronic Abdominal pain (19 sources) Pelvic and perineal pain; Translations: [Pelvic and perineal pain] Onset: 12-07-2021 11-08-2022 Episodic Genitourinary symptoms and ill-defined conditions (20 sources) History of urinary tract infection; Translations: [Personal history of urinary (tract) infections] Onset: 04-11-2022 11-08-2022 Episodic Residual codes; unclassified (20 sources) History of headache; Translations: [Personal history of other specified conditions] Onset: 11-08-2022 Episodic Residual codes; unclassified (1 source) Personal history of other specified conditions; Translations: [History of headache] Onset: 11-08-2022 Episodic Results Test Name Value Interpretation Reference Range Facil ity Vital Signs Date Time Vital Sign Value Performing Clinician Yulissa velasquez 03-26-2023 13:30-0400 Body temperature 96.62 [degF] JJ VELÁZQUEZ MD [facility] 03-26-2023 13:30-0400 Diastolic Blood Pressure Non-Invasive 80 1 JJ VELÁZQUEZ MD [facility] 03-26-2023 13:30-0400 Heart rate 64 /min JJ VELÁZQUEZ MD [facility] 03-26-2023 13:30-0400 Respiratory rate 18 /min JJ VELÁZQUEZ MD [facility] 03-26-2023 13:30-0400 Systolic Blood Pressure Non-Invasive 117 1 JJ VELÁZQUEZ MD [facility] 03-26-2023 13:13-0400 Body temperature 97.7 [degF] JJ VELÁZQUEZ MD [facility] 03-26-2023 13:13-0400 Diastolic Blood Pressure Non-Invasive 83 1 JJ VELÁZQUEZ MD [facility] 03-26-2023 13:13-0400 Heart rate 61 /min JJ VELÁZQUEZ MD [facility] 03-26-2023 13:13-0400 Mean blood pressure 93 mm[Hg] JJ VELÁZQUEZ MD [facility] 03-26-2023 13:13-0400 Respiratory rate 16 /min JJ VELÁZQUEZ MD [facility] 03-26-2023 13:13-0400 Systolic Blood Pressure Non-Invasive 112 1 JJ VELÁZQUEZ MD [facility] 03-26-2023 12:47-0400 Diastolic Blood Pressure Non-Invasive 69 1 JJ VELÁZQUEZ MD [facility] 03-26-2023 12:47-0400 Heart rate 81 /min JJ VELÁZQUEZ MD [facility] 03-26-2023 12:47-0400 Mean blood pressure 79 mm[Hg] JJ VELÁZQUEZ MD [facility] 03-26-2023 12:47-0400 Respiratory rate 16 /min JJ VELÁZQUEZ MD [facility] 08-22-2023 12:47-0400 Systolic Blood Pressure Non-Invasive 108 1 JJ VELÁZQUEZ MD [facility] 03-26-2023 12:42-0400 Heart rate 81 /min JJ VELÁZQUEZ MD [facility] 03-26-2023 12:42-0400 Mean blood pressure 91 mm[Hg] JJ VELÁZQUEZ MD [facility] 03-26-2023 12:12-0400 Body temperature 96.8 [degF] JJ VELÁZQUEZ MD [facility] 03-26-2023 12:05-0400 Respiratory Rate - Anes 0 br/min JJ VELÁZQUEZ MD [facility] 03-26-2023 12:00-0400 Respiratory Rate - Anes 11 br/min JJ VELÁZQUEZ MD [facility] 03-26-2023 11:55-0400 Body temperature 94.35 [degF] JJ VELÁZQUEZ MD [facility] 03-26-2023 11:55-0400 Respiratory Rate - Anes 16 br/min JJ VELÁZQUEZ MD [facility] 03-26-2023 11:50-0400 Body temperature 94.91 [degF] JJ VELÁZQUEZ MD [facility] 03-26-2023 11:45-0400 Body temperature 95.77 [degF] JJ VELÁZQUEZ MD [facility] 03-26-2023 09:38-0400 Body height 157.5 cm JJ VELÁZQUEZ MD [facility] 03-26-2023 09:38-0400 Body weight 47.6 kg JJ VELÁZQUEZ MD [facility] 03-26-2023 09:38-0400 Heart rate 66 /min JJ VELÁZQUEZ MD [facility] 03-25-2023 14:30-0400 Body temperature 98.71 [degF] Elkin Lin MD Work Phone: [facility] 03-25-2023 14:30-0400 Body weight 45.81 kg Elkin Lin MD Work Phone: [facility] 03-25-2023 14:30-0400 Diastolic blood pressure 60 mm[Hg] Elkin Lin MD Work Phone: [facility] 03-25-2023 14:30-0400 Heart rate 87 /min Elkin Lin MD Work Phone: [facility] 03-25-2023 14:30-0400 Respiratory rate 18 /min Elkin Lin MD Work Phone: [facility] 03-25-2023 14:30-0400 SaO2% (BldA) [Mass fraction] 97 % Elkin Lin MD Work Phone: [facility] 03-25-2023 14:30-0400 Systolic blood pressure 104 mm[Hg] Elkin Lin MD Work Phone: [facility] 03-13-2023 09:11-0400 Body height 158 cm JJ VELÁZQUEZ MD [facility] 03-13-2023 09:11-0400 Body temperature 98.06 [degF] JJ VELÁZQUEZ MD [facility] 03-13-2023 09:11-0400 Body weight 46.9 kg JJ VELÁZQUEZ MD [facility] 03-13-2023 09:11-0400 Diastolic Blood Pressure Non-Invasive 75 1 JJ VELÁZQUEZ MD [facility] 03-13-2023 09:11-0400 Heart rate 86 /min JJ VELÁZQUEZ MD [facility] 03-13-2023 09:11-0400 Systolic Blood Pressure Non-Invasive 111 1 JJ VELÁZQUEZ MD [facility] 03-07-2023 16:31-0400 Body height 157.5 cm Radames Worthy MD Work Phone: [facility] 03-07-2023 16:31-0400 Body weight 47.45 kg Radames Worthy MD Work Phone: [facility] 03-07-2023 16:31-0400 Diastolic blood pressure 58 mm[Hg] Radames Worthy MD Work Phone: [facility] 03-07-2023 16:31-0400 Heart rate 92 /min Radames Worthy MD Work Phone: [facility] 03-07-2023 16:31-0400 SaO2% (BldA) [Mass fraction] 100 % Radames Worthy MD Work Phone: [facility] 03-07-2023 16:31-0400 Systolic blood pressure 106 mm[Hg] Radames Worthy MD Work Phone: [facility] 01-29-2023 15:25-0400 Body temperature 97.81 [degF] Elkin Lin MD Work Phone: [facility] 01-29-2023 15:25-0400 Body weight 47.63 kg Elkin Lin MD Work Phone: [facility] 01-29-2023 15:25-0400 Diastolic blood pressure 62 mm[Hg] Elkin Lin MD Work Phone: [facility] 01-29-2023 15:25-0400 Heart rate 79 /min Elkin Lin MD Work Phone: [facility] 01-29-2023 15:25-0400 Respiratory rate 18 /min Elkin Lin MD Work Phone: [facility] 01-29-2023 15:25-0400 SaO2% (BldA) [Mass fraction] 97 % Elkin Lin MD Work Phone: [facility] 01-29-2023 15:25-0400 Systolic blood pressure 112 mm[Hg] Elkin Lin MD Work Phone: [facility] 01-29-2023 09:48-0400 Body height 157.5 cm Radames Worthy MD Work Phone: [facility] 01-29-2023 09:48-0400 Body weight 46.27 kg Radames Worthy MD Work Phone: [facility] 01-29-2023 09:48-0400 Diastolic blood pressure 73 mm[Hg] Radames Worthy MD Work Phone: [facility] 01-29-2023 09:48-0400 Heart rate 108 /min Radames Worthy MD Work Phone: [facility] 01-29-2023 09:48-0400 Respiratory rate 16 /min Radames Worthy MD Work Phone: [facility] 01-29-2023 09:48-0400 SaO2% (BldA) [Mass fraction] 98 % Radames Worthy MD Work Phone: [facility] 01-29-2023 09:48-0400 Systolic blood pressure 122 mm[Hg] Radames Worthy MD Work Phone: [facility] 01-01-2023 10:59-0400 Body temperature 97.9 [degF] Elkin Lin MD Work Phone: [facility] 01-01-2023 10:59-0400 Body weight 47.17 kg Elkin Lin MD Work Phone: [facility] 01-01-2023 10:59-0400 Diastolic blood pressure 62 mm[Hg] Elkin Lin MD Work Phone: [facility] 01-01-2023 10:59-0400 Heart rate 100 /min Elkin Lin MD Work Phone: [facility] 01-01-2023 10:59-0400 Respiratory rate 18 /min Elkin Lin MD Work Phone: [facility] 01-01-2023 10:59-0400 SaO2% (BldA) [Mass fraction] 98 % Elkin Lin MD Work Phone: [facility] 01-01-2023 10:59-0400 Systolic blood pressure 112 mm[Hg] Elkin Lin MD Work Phone: [facility] 11-08-2022 08:47-0400 Body height 157.5 cm Marilia Rosales FRAME CATCHER.APARTMENT ASSISTANT MANAGER Work Phone: [facility] 11-08-2022 08:47-0400 Body weight 46.72 kg Marilia Rosales FRAME CATCHER.APARTMENT ASSISTANT MANAGER Work Phone: [facility] 11-08-2022 08:47-0400 Diastolic blood pressure 70 mm[Hg] Marilia Rosales FRAME CATCHER.APARTMENT ASSISTANT MANAGER Work Phone: [facility] 11-08-2022 08:47-0400 Heart rate 88 /min Marilia Rosales FRAME CATCHER.APARTMENT ASSISTANT MANAGER Work Phone: [facility] 11-08-2022 08:47-0400 Respiratory rate 16 /min Marilia Rosales FRAME CATCHER.APARTMENT ASSISTANT MANAGER Work Phone: [facility] 11-08-2022 08:47-0400 SaO2% (BldA) [Mass fraction] 100 % Marilia Rosales FRAME CATCHER.APARTMENT ASSISTANT MANAGER Work Phone: [facility] 11-08-2022 08:47-0400 Systolic blood pressure 112 mm[Hg] Marilia Rosales FRAME CATCHER.APARTMENT ASSISTANT MANAGER Work Phone: [facility] Encounters Encounter Date Encounter Type Care Provider Facility Start: 07-10-2023 Refill Radames Worthy MD Work Phone: Neurology Procedures Date Procedure Procedure Detail Performing Clinician Start: 04-05-2022 Cystoscopy JJ BEGUM MD Start: 08-05-2019 section ROB VELÁZQUEZ MD section JOSEPH DAVIS FRAME CATCHER-PILOT PLANT OPERATOR HELPER Cystoscopy JOSEPH POE FRAME CATCHER-PILOT PLANT OPERATOR HELPER Plan of Treatment Date Care Activity Detail Author Start: 03-24-2030 Urine microalbumin profile [facility] Start: 06-14-2026 Pap Testing Pap Testing [facility] Start: 01-30-2024 COVID-19 VACCINE (#1) COVID-19 VACCI NE (#1) [facility] Immunizations Immunization Date Immunization Notes Care Provider Fa cility 04-08-2020 Influenza, injectabl e, Madin [place] Canine Kidney, preservative free, quadrivalent Marilia Rosales FRAME CATCHER.APARTMENT ASSISTANT MANAGER Work Phone: [facility] Work Phone: 04-08-2020 influenza virus vaccine, unspecified formulation Elkin Lin MD Work Phone: [facility] 04-07-2020 influenza, seasonal, injectable Marilia Rosales FRAME CATCHER.APARTMENT ASSISTANT MANAGER Work Phone: [facility] Work Phone: 03-24-2020 diphtheria, tetanus toxoids and acellular pertussis vaccine, unspecified formulation Marilia Rosales FRAME CATCHER.APARTMENT ASSISTANT MANAGER Work Phone: [facility] Work Phone: 03-24-2020 tetanus toxoid, redu ron diphtheria toxoid, and acellular pertussis vaccine, adsorbed Marilia Rosales FRAME CATCHER.APARTMENT ASSISTANT MANAGER Work Phone: [facility] Work Phone: 07-17-2003 influenza nasal, unspecified formulation Marilia Rosales FRAME CATCHER.APARTMENT ASSISTANT MANAGER Work Phone: [facility] 07-17-2003 influenza virus vaccine, unspecified formulation JJ VELÁZQUEZ MD [facility] 07-17-2003 influenza, seasonal, injectable Marilia Rosales FRAME CATCHER.APARTMENT ASSISTANT MANAGER Work Phone: [facility] Work Phone: 03-27-2001 diphtheria, tetanus toxoids and acellular pertussis vaccine, unspecified formulation Marilia Rosales FRAME CATCHER.APARTMENT ASSISTANT MANAGER Work Phone: [facility] Work Phone: 03-27-2001 measles, mumps and rubella virus vaccine Marilia Rosales FRAME CATCHER.APARTMENT ASSISTANT MANAGER Work Phone: [facility] Work Phone: 03-27-2001 measles/mumps/rubell a virus vaccine JJ VELÁZQUEZ MD [facility] 03-27-2001 poliovirus vaccine, unspecified formulation Marilia Rosales FRAME CATCHER.APARTMENT ASSISTANT MANAGER Work Phone: [facility] Work Phone: 11-23-1997 haemophilus influenz ae type b vaccine, conjugate unspecified formulation Marilia Rosales FRAME CATCHER.APARTMENT ASSISTANT MANAGER Work Phone: [facility] Work Phone: 08-10-1997 diphtheria, tetanus toxoids and pertussis vaccine Marilia Rosales FRAME CATCHER.APARTMENT ASSISTANT MANAGER Work Phone: [facility] Work Phone: 08-10-1997 poliovirus vaccine, unspecified formulation Marilia Rosales FRAME CATCHER.APARTMENT ASSISTANT MANAGER Work Phone: [facility] Work Phone: 05-07-1997 measles, mumps and rubella virus vaccine Marilia Rosales FRAME CATCHER.APARTMENT ASSISTANT MANAGER Work Phone: [facility] Work Phone: 05-07-1997 measles/mumps/rubell a virus vaccine JJ VELÁZQUEZ MD [facility] 05-07-1997 varicella virus vaccine Sonia i Rosales FRAME CATCHER.APARTMENT ASSISTANT MANAGER Work Phone: [facility] Work Phone: 02-04-1997 diphtheria, tetanus toxoids and pertussis vaccine Marilia Rosales FRAME CATCHER.APARTMENT ASSISTANT MANAGER Work Phone: [facility] Work Phone: 02-04-1997 haemophilus influenz ae type b vaccine, conjugate unspecified formulation Marilia Rosales FRAME CATCHER.APARTMENT ASSISTANT MANAGER Work Phone: [facility] Work Phone: 1996 diphtheria, tetanus toxoids and pertussis vaccine Marilia Rosales FRAME CATCHER.APARTMENT ASSISTANT MANAGER Work Phone: [facility] Work Phone: 1996 haemophilus influenz ae type b vaccine, conjugate unspecified formulation Marilia Rosales FRAME CATCHER.APARTMENT ASSISTANT MANAGER Work Phone: [facility] Work Phone: 1996 hepatitis B pediatri c vaccine JJ VELÁZQUEZ MD [facility] 1996 hepatitis B vaccine, pediatric or pediatric/adolescent dosage Marilia Rosales FRAME CATCHER.APARTMENT ASSISTANT MANAGER Work Phone: [facility] Work Phone: 1996 poliovirus vaccine, unspecified formulation Marilia Rosales FRAME CATCHER.APARTMENT ASSISTANT MANAGER Work Phone: [facility] Work Phone: 1996 diphtheria, tetanus toxoids and pertussis vaccine Marilia Rosales FRAME CATCHER.APARTMENT ASSISTANT MANAGER Work Phone: [facility] Work Phone: 1996 haemophilus influenz ae type b vaccine, conjugate unspecified formulation Marilia Rosales FRAME CATCHER.APARTMENT ASSISTANT MANAGER Work Phone: [facility] Work Phone: 1996 hepatitis B pediatri c vaccine JJ VELÁZQUEZ MD [facility] 1996 hepatitis B vaccine, pediatric or pediatric/adolescent dosage Marilia Rosales FRAME CATCHER.APARTMENT ASSISTANT MANAGER Work Phone: [facility] Work Phone: 1996 poliovirus vaccine, unspecified formulation Marilia Rosales FRAME CATCHER.APARTMENT ASSISTANT MANAGER Work Phone: [facility] Work Phone: 1996 hepatitis B pediatri c vaccine JJ VELÁZQUEZ MD [facility] 1996 hepatitis B vaccine, pediatric or pediatric/adolescent dosage Marilia Rosales FRAME CATCHER.APARTMENT ASSISTANT MANAGER Work Phone: [facility] Work Phone: Payers Date Payer Category Payer Medicaid [id number] 2022 Medicaid [id number] 1996 Unknown [id number] 1996 Unknown [id number] 1996 Unknown [id number] 1996 Unknown [id number] [id number] 1996 Unknown [id number] [id number] [id number] 1996 Unknown [id number] [id number] [id number] 1996 Unknown [id number] [id number] 1996 Unknown [id number] Social History Date Type Detail Facility Start: 10-25-2022 End: 03-13-2023 Tobacco smoking status [facility] Start: 10-07-2019 End: 11-08-2022 Tobacco smoking status NHIS Smokes tobacco daily [facility] History of tobacco use Cigarette Smoker [facility] Start: 10-07-2019 End: 12-13-2022 Cigarettes smoked current (pack per day) - Reported 0.5 [facility] Start: 10-07-2019 End: 11-08-2022 Tobacco use and exposure Smokeless tobacco non-user [facility] Start: 10-07-2019 End: 03-25-2023 Alcohol intake Current non-drinker of alcohol (finding) [facility] Start: 11-07-2022 History SDOH Alcohol Frequency 1 [facility] Start: 11-07-2022 History SDOH Alcohol Std Drinks 0 [facility] Start: 11-07-2022 History SDOH Social Connections Phone 3 [facility] Start: 04-05-2023 History SDOH Social Connections Membership 2 [facility] Start: 11-07-2022 History SDOH Social Connections Living 8 [facility] Start: 11-07-2022 History SDOH Physica l Activity DPW 5 [facility] Start: 11-07-2022 History SDOH Physica l Activity MPS 15 [facility] Start: 11-07-2022 History SDOH Stress 4 [facility] Start: 1995 Sex Assigned At Female C [facility] Start: 11-06-2022 End: 12-13-2022 Social connection and isolation panel [facility] Do you belong to any clubs or organizations such as judaism groups, unions, fraternal or athletic groups, or school groups? No [facility] Are you now , , , , never or living with a partner? Living with partner [facility] How often to you hav e a drink containing alcohol? Never [facility] How many standard dr inks containing alcohol do you have on a typical day? Patient does not drink [facility] How hard is it for y ou to pay for the very basics like food, housing, medical care, and heating Not very hard [facility] Do you feel stress - tense, restless, nervous, or anxious, or unable to sleep at night because your mind is troubled all the time - these days [OSQ] Rather much [facility] (I/We) worried chris er (my/our) food would run out before (I/we) got money to buy more. Never true [facility] Start: 11-06-2022 Gender identity Identifies as female gender (finding) [facility] Start: 11-06-2022 Sexual orientation Heterosexual (allan cherry) [facility] Functional Status Date Assessment Result Facility 03-26-2023 Functional Status Assistive Device None A [facility] 03-26-2023 Functional Status Awake, Resting [facility] 03-26-2023 Functional Status [facility] 03-26-2023 Functional Status Maintained [facility] 03-13-2023 Functional Status Sensory Deficits None A [facility] Mental Status Date Assessment Result Facility 03-26-2023 [facility] Status [facility] [address] [facility] 03-26-2023 Mental Status Orientation Assessment [facility] Clinical Notes 11-06-2022 to 07-10-2023 Telephone Encounter - Nikky Sosa - 07/10/2023 2:56 PM ESTTelephone Encounter - Pat Edmond, RN - 03/27/2023 4:27 PM EDTTelephone Encounter - Erlin Valente RN - 03/26/2023 2:56 PM EDT Note Date & Type Note Facility 07-10-2023 Miscellaneous Notes Physician: Dr. Worthy Call from pharmacy requesting refill. Please E-Scribe Last OV: 03/07/[address] Worthy Future OV: no future appointments scheduled with Dr. Worthy Requested Prescriptions Pending Prescriptions Disp Refills rizatriptan 5 mg disintegrating tablet 12 tablet 2 Sig: Take 1 tablet (5 mg) by mouth as needed. May repeat in 2 hours if needed. Pharmacy Name: [facility] Phone #: [phone] 03/07/2023 March 07, 2023 28 years old woman with intractable chronic headache , Side effects with elavil , Confused and dizzy Zoloft didn't help the headache ,but her depression is better Headaches daily 20 to 30 days a month Each headache for half day to 4 days So headache is not daily as in previous visits , But still disabling for her Muscle relaxant help and helps her to sleep at night Discussed other options for headache management , For now will try another acute and preventive medication Prescription written Zonegran 25 mg daily for prevention Maxalt as needed 1-Maintain regular sleep schedule. 2-Limit over the counter medications and prescription rescue meds to 2 days per week or less 3-Maintain headache diary. 4-Limit caffeine to 1-2, 8 oz cups per day or less (300 mg) 5-Limit diet sodas to12 oz or less per day. Avoid other sources of nutrasweet. 6-Avoid dietary triggers. (list given to pt) 7-Eat regular, frequent meals. 8- Keep hydrated. Drink at least 6-8, 8 oz glasses of water/d Intractable daily Headache ,in a previous visit as shown below Subjective HISTORY AND PHYSICAL Yohana Galindo 27 year old woman ,complaining of migraine headache that was daily for the last 2 years Before that much less frequent headache. She prescribed muscle relaxer that is working well on her migraine Left eye looking through kleidoscope for one hour then can go away with no headache after medications Feeling milder pain Naprosyn also used with some relief . Visual aura, pain behind the eye and back of neck and shoulder blades Back of head ,neck pain . Neck pain even without headache Blurred vision, nausea vomitng phootphobia phonophobia Goes and lies down in a dark quiet place After taking zoloft and flexeril a month ,headache improved Breakthrough episodes 2 episodes of migriane ,lasting all day Aura every other day Before flexeril she wasn't sleeping well at night Review of Systems Objective Vitals 03/07/23 1631 BP: 106/58 BP Site: Left Arm BP Position: Sitting BP Cuff Size: Regular Adult Pulse: 92 SpO2: 100% Weight: 47.4 kg (104 lb 9.6 oz) Height: 157.5 cm (5' 2 ) Physical Exam EXAM: NOSE: no erythema or exudate PHARYNX: normal, no erythema NECK: supple and no adenopathy CHEST: Normal chest wall exam Neurological Exam MENTAL STATUS: Alert, oriented to person, place and time and Follows commands CRANIAL NERVES: Visual bryant intact to confrontation, Extraocular movements intact, No facial droop or ptosis, No dysarthria, and Tongue protrudes midline MOTOR: No drift and Normal tone MOTOR STRENGTH: Upper and lower extremity 5/5 bilaterally REFLEXES: UE and LE reflexes are equal and reactive SENSATION: Intact light touch and pinprick COORDINATION: Finger-to- nose-finger intact bilaterally GAIT: Normal-based PAST MEDICAL HISTORY PAST MEDICAL HISTORY Diagnosis Date History of headache Interstitial cystitis PTSD (post-traumatic stress disorder) Recurrent UTI (urinary tract infection) CURRENT MEDICATIONS Current Outpatient Medications Medication Sig Dispense Refill cephALEXin (KEFLEX) 500 mg capsule TAKE 1 CAPSULE BY MOUTH EVERY DAY AT BEDTIME ondansetron orally disintegrating (ZOFRAN ODT) 4 mg disintegrating tablet Take 1 tablet by mouth every 6 hours as needed for nausea/vomiting. 30 tablet 0 sertraline (ZOLOFT) 25 mg tablet Take 1 tablet by mouth once daily. for PTSD 30 tablet 11 rizatriptan (MAXALT PREDATORY ANIMAL HUNTER) 5 mg disintegrating tablet Take 1 tablet by mouth as needed. May repeat in 2 hours if needed. 12 tablet 2 cyclobenzaprine (FLEXERIL) 10 mg tablet Take 1 tablet by mouth twice daily as needed for muscle spasm. 21 tablet 1 zonisamide (ZONEGRAN) 25 mg capsule Take 1 capsule by mouth once daily. 30 capsule 0 vibegron (GEMTESA) 75 mg tablet (Patient not taking: Reported on 03/07/2023) No current facility-administered medications for this visit. Social Connections: Socially Isolated (11/06/2022) Social Connection and Isolation Panel [NHANES] Frequency of Communication with Friends and Family: Twice a week Frequency of Social Gatherings with Friends and Family: Never Attends Nondenominational Services: Never Active Member of Clubs or Organizations: No Attends Club or Organization Meetings: Never Marital Status: Living with partner No diagnosis found. Assessment and Plan Patient is 28 years old with chronic migraine headache,intractable as detailed above Discussed headache management Acute and preventive No orders found for this visit on 03/07/23. documented in this encounter [facility] 03-27-2023 Miscellaneous Notes Call to patient. She would like prior authorization submitted to try to get the full 12 tablets per month. Prior authorization submitted via cover my meds. (Arevalo: [id number]) Images from the original note were not included. Radames Worthy MD You 13 minutes ago (2:43 PM) She can wait until old prescription runs out and depending on what the insurance will allow Attempted to reach patient to ask if she is requesting early refill of Maxalt 5 mg. Disintegrating tablets and to get an update on symptoms. Left message to call back. Yancy Pharmacist left message on nurse line regarding patient's prescription received today for Rizatriptan 30 tablets. Patient's insurance will only cover nine tablets per 30 days without a prior authorization. She last filled nine tablets on 03/08, so she is not eligible to refill again until 04/07. If you would like to start a Prior Authorization for her, her ID number with Medicaid is [id number]. She needs a PA to get more than nine tablets in 30 days -- documented in this encounter [facility] 03-26-2023 Hospital Discharg e instructions Patient Education 03/26/2023 13:49:33 [facility] Discharge Instructions Template (05/2018) (CUSTOM) [facility] SAME DAY SURGERY DISCHARGE INSTRUCTIONS PLEASE FOLLOW THE INSTRUCTIONS BELOW MARKED WITH AN X: _x__ Regular Diet: Start with clear liquids, then soup and crackers and gradually add other foods. _x__ Drink extra fluids. ___ Special Diet Instructions: ___ ACTIVITY: _x__ Avoid stress to suture line. Since you have had an anesthetic, it would be advisable not to drive, drink alcohol, or make major decisions over the next 24 hours. You may require more rest tonight and tomorrow. ___ May resume regular activity as tolerated. ___ Restrict activity as follows: ___ ___ Walk Only ___ ___ Do not go up and down stairs. ___ Do not ride in car until ___ _x__ Do not drive car. ___ Do not have sexual intercourse. ___ No heavy lifting, pushing or straining. _x__ Other: Follow all verbal and written instructions by Dr. Velázquez. BATHING/SHOWERING: ___ Sponge bathe until office visit. ___ Sitting in tub of warm water may relieve discomfort. ___ May tub bathe _x__ May shower ___ On day after surgery sit in tub of warm water to soak off dressing. DRESSING: _x__ Keep operative area dry and clean. ___ Check the operative area for signs of bleeding. Apply pressure to the bleeding site if necessary and call your physician. ___ Change dressing as necessary using sterile dressing material or bandaid. ___ Reinforce dressing as necessary. ___ Change and care for wound as follows: ___ ___ Wear bra for ___ days following breast surgery for comfort. ___ Change drip pad as needed. ___ Wear scrotal support for comfort. WATCH FOR SIGNS OF INFECTION: (Usually appears 36-48 hours after surgery) Increased temperature (101 degrees Fahrenheit or higher) Redness or swelling Increased pain Foul odor or drainage. If you have any questions, please call your doctor at the number listed on your follow up instructions. Follow all instructions given to you by your physician. Please complete and return the survey you will be receiving in the mail to help us better serve our patients. Form: 1522 ([id number]) R: 11/1103/26/2023 13:48:11 1-SDS URO Cystoscopy w/ Bladder Biopsy (05/2022)(CUSTOM) CYSTOSCOPY WITH BLADDER BIOPSY CYSTOSCOPY WITH BLADDER BIOPSY: The bladder is filled with water to examine and a sample of tissue will be taken to be evaluated. The area will be cauterized. This procedure may be done as a diagnostic procedure. SURGICAL TREATMENT: Surgery: Outpatient- surgery length of time approximately 30 minutes, no skin incisions (surgery is done within the bladder with a scope). Surgical prep: Nothing to eat or drink after midnight (night before surgery). Surgery will call the day before surgery to go over arrival time, surgery time, restrictions, and medications. No bowel prep. Medications to hold: Blood thinners, Aspirin, vitamins, and supplements (unless instructed otherwise). POST OPERATIVE CARE: No surgical dressing. Typically, there is no Schmitz catheter after the procedure. If discharged home with Schmitz catheter, make sure you are cleaning around the insertion site with warm soap and water. You will use the leg bag (smaller bag) during the day and the night bag (large bag) at night. Remember to keep bag lower than the bladder. Keep Schmitz catheter secure device on to prevent tension. ACTIVITY: No lifting more than 10-15 pounds for 2 weeks. No work for typically 1-2 days. May resume driving 1-2 days and off pain medication. May ride in the car the next day. May shower. Medications: May be discharged with pain medication. What to expect: Common symptoms after surgery. Blood in urine. Frequency and/or urgency. Burning with urination. When to call office: Elevated temperature of 101 or higher. If Schmitz catheter in place: bloody urine that is thick, similar to tomato juice or clots or Schmitz catheter that is blocked/clogged due to clots and not draining into catheter bag. Unable to urinate or trouble urinating. FOLLOW UP: Office will call to schedule post-operative appointment to discuss pathology. If you have a Schmitz catheter in place, you may return sooner to the office to have the Schmitz catheter removed. Follow Up Care 01/16/2023 14:56:35 With:JJ VELÁZQUEZ MD, [facility] Address: [address] [place] [phone] When: Unknown Comments:Follow-up as scheduled [facility] 03-26-2023 Summary of episod e note Discharge Instructions Thank you for allowing [facility] to assist you with your healthcare needs. The following is important discharge information regarding your hospital visit. Your Care Team ELKIN LIN MD Your Diagnosis Bladder pain What to do next Scheduled Follow-Up Appointments Appointment Type When With Where Contact InformationURO OV Post Op 04/10/2023 11:10 AM EDT JJ VELÁZQUEZ MD [facility] Follow Up Appointments Follow Up with JJ VELÁZQUEZ MD, [facility] When Why: Follow-up as scheduled Where: [address] [place] [phone] The Following Activity and Diet Have Been Ordered for You Discharge Activity - Ordered -- Follow the post-operative/post-procedure activity instructions provided by your physician's office., 03/26/23 13:46:00 EDT Discharge Diet - Ordered -- Follow the post-operative/post-procedure diet instructions provided by your physician's office., 03/26/23 13:46:00 EDT The Following Equipment Has Been Ordered for You Discharge Home Equipment Discharge Wound Care - Ordered -- Follow the post-operative/post-procedure wound care instructions provided by your physician's office., 03/26/23 13:46:00 EDT The Following Treatments Have Been Ordered for You Discharge Labs No qualifying data available. Discharge Radiology No qualifying data available. Other Therapies No qualifying data available. Post Acute Orders No qualifying data available. Someone Will Contact You Regarding These Home Health Referrals No home referrals have been ordered for you. No one will call you. Allergies Bee Stings (Hives, Swelling, Difficulty breathing) amitriptyline (Dizziness, Headache, Confusion) Medications Please ask your primary doctor or pharmacist before taking any other medication not listed, including over the counter drugs, herbal medications, vitamins and or supplements as they may interact with your home medications. What How Much When Why Instructions Last Dose New acetaminophen-oxyCODONE (Percocet 5 mg-325 mg oral tablet) 1 tab(s) by mouth Every 4 hours as needed for for pain Bladder pain Duration: 3 Days Pickup at [facility] [address] Unchanged oxybutynin (oxybutynin 5 mg/ 24 hours oral tablet, extended release) 1 tab(s) by mouth Once a day OAB (overactive bladder) Duration: 30 Days Unchanged rizatriptan (rizatriptan 10 mg oral tablet) 1 tab(s) by mouth Once as needed for as needed for migraine headache Unchanged sertraline (sertraline 25 mg oral tablet) 1 tab(s) by mouth Once a day Unchanged zonisamide (zonisamide 25 mg oral capsule) 1 cap by mouth Every day Pharmacy Information [facility]: [id number] [place], [place] [id number] [phone] Please take this list to your next doctor s visit. Bring all medications you take, including over the counter medications, herbals and other supplements with you to your doctor s visit. Patients and families are reminded to discard old lists and to update any records with all medication providers or retail pharmacies. Education Materials [facility] SAME DAY SURGERY DISCHARGE INSTRUCTIONS PLEASE FOLLOW THE INSTRUCTIONS BELOW MARKED WITH AN X: _x__ Regular Diet: Start with clear liquids, then soup and crackers and gradually add other foods. _x__ Drink extra fluids. ___ Special Diet Instructions: ___ ACTIVITY: _x__ Avoid stress to suture line. Since you have had an anesthetic, it would be advisable not to drive, drink alcohol, or make major decisions over the next 24 hours. You may require more rest tonight and tomorrow. ___ May resume regular activity as tolerated. ___ Restrict activity as follows: ___ ___ Walk Only ___ ___ Do not go up and down stairs. ___ Do not ride in car until ___ _x__ Do not drive car. ___ Do not have sexual intercourse. ___ No heavy lifting, pushing or straining. _x__ Other: Follow all verbal and written instructions by Dr. Velázquez. BATHING/SHOWERING: ___ Sponge bathe until office visit. ___ Sitting in tub of warm water may relieve discomfort. ___ May tub bathe _x__ May shower ___ On day after surgery sit in tub of warm water to soak off dressing. DRESSING: _x__ Keep operative area dry and clean. ___ Check the operative area for signs of bleeding. Apply pressure to the bleeding site if necessary and call your physician. ___ Change dressing as necessary using sterile dressing material or bandaid. ___ Reinforce dressing as necessary. ___ Change and care for wound as follows: ___ ___ Wear bra for ___ days following breast surgery for comfort. ___ Change drip pad as needed. ___ Wear scrotal support for comfort. WATCH FOR SIGNS OF INFECTION: (Usually appears 36-48 hours after surgery) Increased temperature (101 degrees Fahrenheit or higher) Redness or swelling Increased pain Foul odor or drainage. If you have any questions, please call your doctor at the number listed on your follow up instructions. Follow all instructions given to you by your physician. Please complete and return the survey you will be receiving in the mail to help us better serve our patients. Form: 1522 ([id number]) R: 11/11 CYSTOSCOPY WITH BLADDER BIOPSY CYSTOSCOPY WITH BLADDER BIOPSY: The bladder is filled with water to examine and a sample of tissue will be taken to be evaluated. The area will be cauterized. This procedure may be done as a diagnostic procedure. SURGICAL TREATMENT: Surgery: Outpatient- surgery length of time approximately 30 minutes, no skin incisions (surgery is done within the bladder with a scope). Surgical prep: Nothing to eat or drink after midnight (night before surgery). Surgery will call the day before surgery to go over arrival time, surgery time, restrictions, and medications. No bowel prep. Medications to hold: Blood thinners, Aspirin, vitamins, and supplements (unless instructed otherwise). POST OPERATIVE CARE: No surgical dressing. Typically, there is no Schmitz catheter after the procedure. If discharged home with Schmitz catheter, make sure you are cleaning around the insertion site with warm soap and water. You will use the leg bag (smaller bag) during the day and the night bag (large bag) at night. Remember to keep bag lower than the bladder. Keep Schmitz catheter secure device on to prevent tension. ACTIVITY: No lifting more than 10-15 pounds for 2 weeks. No work for typically 1-2 days. May resume driving 1-2 days and off pain medication. May ride in the car the next day. May shower. Medications: May be discharged with pain medication. What to expect: Common symptoms after surgery. Blood in urine. Frequency and/or urgency. Burning with urination. When to call office: Elevated temperature of 101 or higher. If Schmitz catheter in place: bloody urine that is thick, similar to tomato juice or clots or Schmitz catheter that is blocked/clogged due to clots and not draining into catheter bag. Unable to urinate or trouble urinating. FOLLOW UP: Office will call to schedule post-operative appointment to discuss pathology. If you have a Schmitz catheter in place, you may return sooner to the office to have the Schmitz catheter removed. Additional Information VACCINATE! IT SAVES LIVES! Members of the community who have not yet received the COVID-19 vaccine and would like to receive it can visit one of [facility] vaccine clinics. There are many vaccine clinic locations within the [facility]. For locations and available times, please visit https://gettheshot.coronavirus.o hio.gov/. It is important to note that some COVID mobile vaccine clinics are held outdoors and may be canceled in rainy or stormy conditions. To learn more about pediatric vaccinations (ages 5-11), we invite you to visit the [facility] webpage. [email or web address] To learn more about the COVID-19 vaccine, we invite you to visit the CDC website for a list of frequently asked questions.https://www.cdc.gov/co ronavirus/2019-ncov/vaccines/faq .html [facility] Patient Portal Access Instructions: Stay connected with your healthcare team and access your personal medical information anytime with the [facility] [employer] Patient Portal. Please follow the directions below to create your [facility] account: 1.Access the email account you provided upon registration to the hospital/physician office.2.Look for an invitation email from [facility].3.Open the email and access the invitation link: Accept Invitation to [facility].4.Fill in the required bryant to create your account. To access your account, visit [email or web address]. Click the blue button labeled Access Patient Portal and then log in with the username and password that you created in the steps above. You will be able to view your test results, lab results, a summary of your visits, upcoming appointments and more. There is also a convenient messaging option where you can send secure messages to your provider. In addition, you will have the ability to download any documents or summaries to your computer and/or send the information securely to a physician. Remember that your healthcare information is confidential, so carefully consider who you will allow to register on the [facility] [employer] [facility] Patient Portal for access to your information. You can also access the [facility] [employer] [facility] Patient Portal on the [facility] georgi. Simply click on Patient Portal and then log into your account. If you would like to receive a full copy of your medical records, please contact the [facility] Medical Records Department by calling [phone], Saturday through Saturday between 8 a.m. and 4:30 p.m. HOW TO SAFELY DISPOSE OF PRESCRIPTION MEDICATIONS Please use one of the following methods to safely dispose of your unused medications. 1.Use a drug disposal kit: the drug disposal pouch allows you to safely discard your old and unused drugs. Ask your nurse to give you one when you are discharged.2.Visit a local take-back location: Many local pharmacies and police departments have programs that collect old and unwanted prescription drugs. Call your local pharmacy or go to http://bit.ly/0K3Si0z to find one close to you.3.Make use of household items: Use cat litter or old coffee grounds to dispose medications if other options are not available. Mix your drugs with these household products, seal them in an airtight container and throw it into the garbage. Call [facility]: [phone] to be sure your drugs can be disposed of in this way. Some medicines may require a different approach.4.Never flush your medications down the toilet. IF YOU HAVE BEEN PRESCRIBED AN OPIOID FOR PAIN If you have been prescribed an opioid (such as hydrocodone, oxycodone or morphine), it is critical to understand the possible side effects and risks of opioid pain medications. Even when taken as directed, opioids can have several side effects including: Tolerance, meaning you might need to take more of a medication for the same pain relief. Nausea, vomiting and/or constipation. Sleepiness, dizziness, dry mouth, confusion, depression or itching. Physical dependence, meaning you have withdrawal symptoms when a medication is stopped, can develop within a few days. KNOW YOUR RESPONSIBILITIES It is important to know exactly how much and how often to take the opioid pain medications you are prescribed. Never take opioids in higher amounts or more often than prescribed. Do not combine opioids with alcohol or other drugs that cause drowsiness, such as benzodiazepines, also known as benzos, including diazepam and alprazolam, muscle relaxants or sleep aids. Never sell or share prescription opioids. This is illegal. Store opioids in a secure place and out of reach of others (including children, family, friends and visitors). The last page of this document has been signed and retained as a CHART COPY. Signatures Patient Education Materials 1-SDS Discharge Instructions Template (05/2018) (CUSTOM) 1-SDS URO Cystoscopy w/ Bladder Biopsy (05/2022)(CUSTOM) Medication Leaflets My discharge plan and instructions have been reviewed and explained to me and I,ELIANA GUILLEN understand my current condition and have read and understand these discharge instructions. I have received a written copy of the plan/instructions. If I have questions, I am aware that I should contact my doctor. 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 Patient location: PACU. Assessment Postanesthesia assessment Vitals: Vital signs from flowsheet : Vital Signs 03/26/2023 12:47 EDT Heart Rate Monitored 81 bpm Respiratory Rate 16 br/min Systolic Blood Pressure Non-Invasive 108 mmHg Diastolic Blood Pressure Non-Invasive 69 mmHg Mean Arterial Pressure (NBP) 79 mmHg 03/26/2023 12:42 EDT Heart Rate Monitored 81 bpm Respiratory Rate 16 br/min Systolic Blood Pressure Non-Invasive 120 mmHg Diastolic Blood Pressure Non-Invasive 79 mmHg Mean Arterial Pressure (NBP) 91 mmHg 03/26/2023 12:27 EDT Heart Rate Monitored 71 bpm Respiratory Rate 14 br/min Systolic Blood Pressure Non-Invasive 111 mmHg Diastolic Blood Pressure Non-Invasive 100 mmHg >HHI Mean Arterial Pressure (NBP) 105 mmHg 03/26/2023 12:12 EDT Temperature Temporal Artery 36.0 DegC Heart Rate Monitored 59 bpm LOW Respiratory Rate 10 br/min Systolic Blood Pressure Non-Invasive 99 mmHg Diastolic Blood Pressure Non-Invasive 66 mmHg Mean Arterial Pressure (NBP) 77 mmHg 03/26/2023 12:06 EDT Systolic Blood Pressure Non-Invasive 96 mmHg mmHg Diastolic Blood Pressure Non-Invasive 63 mmHg mmHg 03/26/2023 12:05 EDT Heart Rate Monitored 61 bpm bpm Respiratory Rate - Anes 0 br/min br/min 03/26/2023 12:03 EDT Systolic Blood Pressure Non-Invasive 98 mmHg mmHg Diastolic Blood Pressure Non-Invasive 59 mmHg mmHg 03/26/2023 12:00 EDT Heart Rate Monitored 75 bpm bpm Respiratory Rate - Anes 11 br/min br/min Systolic Blood Pressure Non-Invasive 99 mmHg mmHg Diastolic Blood Pressure Non-Invasive 51 mmHg mmHg 03/26/2023 11:57 EDT Systolic Blood Pressure Non-Invasive 131 mmHg mmHg Diastolic Blood Pressure Non-Invasive 74 mmHg mmHg 03/26/2023 11:55 EDT Temperature (Route Not Specified) 34.64 DegC DegC Heart Rate Monitored 88 bpm bpm Respiratory Rate - Anes 16 br/min br/min 03/26/2023 11:54 EDT Systolic Blood Pressure Non-Invasive 124 mmHg mmHg Diastolic Blood Pressure Non-Invasive 75 mmHg mmHg 03/26/2023 11:51 EDT Systolic Blood Pressure Non-Invasive 119 mmHg mmHg Diastolic Blood Pressure Non-Invasive 79 mmHg mmHg 03/26/2023 11:50 EDT Temperature (Route Not Specified) 34.95 DegC DegC Heart Rate Monitored 117 bpm bpm Respiratory Rate - Anes 15 br/min br/min 03/26/2023 11:48 EDT Systolic Blood Pressure Non-Invasive 112 mmHg mmHg Diastolic Blood Pressure Non-Invasive 60 mmHg mmHg 03/26/2023 11:45 EDT Temperature (Route Not Specified) 35.43 DegC DegC Heart Rate Monitored 53 bpm bpm Respiratory Rate - Anes 7 br/min br/min Systolic Blood Pressure Non-Invasive 93 mmHg mmHg Diastolic Blood Pressure Non-Invasive 48 mmHg mmHg 03/26/2023 11:41 EDT Systolic Blood Pressure Non-Invasive 81 mmHg mmHg Diastolic Blood Pressure Non-Invasive 47 mmHg mmHg 03/26/2023 11:40 EDT Temperature (Route Not Specified) 35.57 DegC DegC Heart Rate Monitored 78 bpm bpm Respiratory Rate - Anes 13 br/min br/min 03/26/2023 11:36 EDT Systolic Blood Pressure Non-Invasive 104 mmHg mmHg Diastolic Blood Pressure Non-Invasive 55 mmHg mmHg 03/26/2023 11:35 EDT Heart Rate Monitored 77 bpm bpm Respiratory Rate - Anes 0 br/min br/min 03/26/2023 11:30 EDT Respiratory Rate - Anes 0 br/min br/min Systolic Blood Pressure Non-Invasive 108 mmHg mmHg Diastolic Blood Pressure Non-Invasive 77 mmHg mmHg 03/26/2023 9:38 EDT Temperature Temporal Artery 36.7 DegC Peripheral Pulse Rate 66 bpm Respiratory Rate 18 br/min Systolic Blood Pressure Non-Invasive 108 mmHg Diastolic Blood Pressure Non-Invasive 77 mmHg . Mental status: at preoperative baseline. Respiratory function: respirations are non-labored, stable. Respiratory support: none. CV function: stable. Cardiovascular support: none. Pain: satisfactory. Nausea status: satisfactory. Postoperative hydration status: within normal limits. Notes: Patient is sufficiently recovered from anesthesia to participate in the evaluation. No follow-up care needed. No complications post-anesthesia.. Digitally Signed by CATALINA GUPTA MD on 03/26/2023 01:08 PM [facility] 03-26-2023 Anesthesiology Progress note Patient: ELIANA GUILLEN Age: 28 years Sex: Female : 1995 Associated Diagnoses: None Author: SANTANA GIORDANO MD Preoperative Information > 8 hrs Health Status Allergies: Allergic Reactions (Selected) Severity Not Documented Amitriptyline- Headache, confusion and dizziness. Bee Stings- Hives, swelling and difficulty breathing., Allergies (2) ActiveReaction amitriptylineHeadache Bee StingsSwelling Current medications: (Selected) Inpatient Medications Ordered Kefzol: 2 gram(s), 20 mL, 240 mL/hr, IV Push (INT), PREOP pharm LR 1,000 mL: 20 mL/hr, Intravenous, Stop: 03/26/23 22:59:00 EDT lidocaine 1% preservative-free injectable solution: 2.5 mg, 0.25 mL, Intradermal, prep pharm Prescriptions Prescribed oxybutynin 5 mg/24 hours oral tablet, extended release: 5 mg, 1 tab(s), Oral, qDay, for 30 day(s), 30 tab(s), 1 Refill(s) Documented Medications Documented rizatriptan 10 mg oral tablet: 10 mg, 1 tab(s), Oral, Once, PRN: as needed for migraine headache, 6 tab(s), 0 Refill(s) sertraline 25 mg oral tablet: 25 mg, 1 tab(s), Oral, qDay, 0 Refill(s) zonisamide 25 mg oral capsule: 25 mg, 1 cap(s), Oral, Daily, 0 Refill(s), Medications (3) Active Scheduled: (2) ceFAZolin syringe 2 gram(s) 20 mL, IV Push (INT), PREOP pharm lidocaine 1% (MPF) 2 mL vial pf 2.5 mg 0.25 mL, Intradermal, prep pharm Continuous: (1) Lactated Ringers 1,000 mL 1,000 mL, Intravenous, 20 mL/hr PRN: (0) Problem list: Medical Interstitial cystitis (chronic) with hematuria / SNOMED CT 469203883 / Confirmed Chronic bladder pain / SNOMED CT 2008100772 / Confirmed OAB (overactive bladder) / SNOMED CT 9923833551 / Confirmed Squamous cell metaplasia of urinary bladder / SNOMED CT 657899124 / Confirmed UTI symptoms / SNOMED CT 341408361 / Confirmed, Active Problems (15) Acid reflux Anxiety Back pain Chronic bladder pain Claustrophobia Constipation COVID-19 Depression Interstitial cystitis (chronic) with hematuria Migraine OAB (overactive bladder) PTSD (post-traumatic stress disorder) Squamous cell metaplasia of urinary bladder Tobacco use UTI symptoms Histories Past Medical History: No active or resolved past medical history items have been selected or recorded. Family History: Anxiety Mother Father Sister Brother Bipolar disorder Father Depression Mother Father Sister Brother HTN - Hypertension Father DVT - Deep vein thrombosis of lower limb Mother PTSD (post-traumatic stress disorder) checklist for DSM-5 (Diagnostic and Statistical Manual of Mental Disorders - Fifth edition) Mother Father Sister Brother Procedure history: Cystoscopy (52717894) in the month of 04/2022 at 27 Years. delivery (0585046971) in 2019 at 25 Years. Social History Social & Psychosocial Habits Alcohol 03/26/2023 Use: Never Substance Abuse 03/26/2023 Use: Past Type: Marijuana, Narcotics Tobacco 03/26/2023 Tobacco Use: 4 or less cigarettes(less Smoking Cessation Information Instructed to not smoke d Home/Environment 03/26/2023 Domestic Concerns None Living situation: Home/Independent Lives [place] Current Home Treatments None Special Services and Community Resources None Nutrition/Health 03/26/2023 Type of diet: Regular Appetite Excellent Sexual 03/26/2023 Sexually active: Yes . Physical Examination Vital Signs(last 24 hrs) Last Charted Resp Rate 18 br/min (MAR 26 09:38) DBB009 mmHg (MAR 26 09:38) DBP77 mmHg (MAR 26 09:38) Measurements from flowsheet : Measurements 03/26/2023 9:38 EDT Height 157.5 cm Height in inches 62 inch(es) Admission Weight 47.6 kg Weight Lbs 104.7 lb Weight Method Actual [place] Body Weight 50.12 kg Admission Body Mass Index 19.19 m2 General: Alert and oriented, No acute distress. Dentition Evaluation: Intact, Own teeth. Respiratory: Symmetrical chest wall expansion. Cardiovascular: Normal peripheral perfusion. Neurologic: Alert, Oriented. Review / Management Results review: No qualifying data available . Assessment and Plan [place] [employer]esthesiologists (ASA) physical status classification: Class II. Anesthetic Preoperative Plan Anesthetic technique: General. Maintenance airway: Laryngeal mask airway. Postoperative pain management: Per surgeon. Informed consent: signed by patient. Digitally Signed by SANTANA GIORDANO MD on 03/26/2023 10:21 AM [facility] 03-25-2023 Note HNO ID: [id number] Author: Elkin Lin MD Service: ? Author Type: Physician Type: Progress Notes Filed: 04/28/2023 10:53 PM Note Text: This note was created using [employer]. Subjective Eliana Guillen is a 28 year old female. Patient presents with: Follow Up SUBJECTIVE: Eliana Guillen is a 28 year old year old lady here today for follow up appointment for review of medical conditions. Surgery tomorrow. Will start Zonegran after surgery. Continue follow up with neurology for headaches. No signs or symptoms of infection. PAST MEDICAL HISTORY Diagnosis Date History of headache Interstitial cystitis PTSD (post-traumatic stress disorder) Recurrent UTI (urinary tract infection) Current Outpatient Medications Medication Sig zonisamide (ZONEGRAN) 25 mg capsule Take 1 capsule by mouth once daily. rizatriptan (MAXALT PREDATORY ANIMAL HUNTER) 5 mg disintegrating tablet Take 1 tablet by mouth as needed. May repeat in 2 hours if needed. cyclobenzaprine (FLEXERIL) 10 mg tablet Take 1 tablet by mouth twice daily as needed for muscle spasm. cephALEXin (KEFLEX) 500 mg capsule TAKE 1 CAPSULE BY MOUTH EVERY DAY AT BEDTIME ondansetron orally disintegrating (ZOFRAN ODT) 4 mg disintegrating tablet Take 1 tablet by mouth every 6 hours as needed for nausea/vomiting. sertraline (ZOLOFT) 25 mg tablet Take 1 tablet by mouth once daily. for PTSD vibegron (GEMTESA) 75 mg tablet (Patient not taking: Reported on 03/07/2023) naproxen (NAPROSYN) 500 mg tablet Take 1 tablet by mouth twice daily with meals. Take with food. As needed for headache (Patient not taking: Reported on 03/07/2023) No current facility-administered medications for this visit. Review of Systems Objective BP 104/60 Pulse 87 Temp 37.1 ?C (98.7 ?F) Resp 18 Wt 45.8 kg (101 lb) LMP 03/18/2023 (Approximate) SpO2 97% BMI 18.47 kg/m? Physical Exam Constitutional: Appearance: Normal appearance. HENT: Head: Normocephalic. Eyes: Conjunctiva/sclera: Conjunctivae normal. Cardiovascular: Rate and Rhythm: Normal rate and regular rhythm. Heart sounds: Normal heart sounds. Pulmonary: Effort: Pulmonary effort is normal. Breath sounds: Normal breath sounds. Skin: General: Skin is warm and dry. Neurological: General: No focal deficit present. Mental Status: She is alert and oriented to person, place, and time. Psychiatric: Mood and Affect: Mood normal. Behavior: Behavior normal. Thought Content: Thought content normal. Judgment: Judgment normal. Assessment and Plan Encounter Diagnosis ICD-10-CM 1. Muscle spasm M62.838 cyclobenzaprine (FLEXERIL) 10 mg tablet 2. Migraine with aura and without status migrainosus, not intractable G43.109 Managed by neurology; noted plans for meds 3. Chronic daily headache R51.9 Follow with neurology for headaches as noted above Above issues addressed with patient. Patient involved in shared decision making for management of medical issues. History and medications reviewed. Epic updated as needed Refills and/or prescriptions taken care of and meds adjusted as indicated after reviewed history, exam and labs. Health Maintenance reviewed. Updated record and/or ordered tests as recorded. Encouraged on efforts at healthy diet and regular exercise and adequate sleep. Elkin Lin MD [facility] 03-25-2023 History of Presen t illness Narrative This note was created using [employer]. Subjective Eliana Guillen is a 28 year old female. Patient presents with: Follow Up SUBJECTIVE: Eliana Guillen is a 28 year old year old lady here today for follow up appointment for review of medical conditions. Surgery tomorrow. Will start Zonegran after surgery. Continue follow up with neurology for headaches. No signs or symptoms of infection. PAST MEDICAL HISTORY Diagnosis Date History of headache Interstitial cystitis PTSD (post-traumatic stress disorder) Recurrent UTI (urinary tract infection) Current Outpatient Medications Medication Sig zonisamide (ZONEGRAN) 25 mg capsule Take 1 capsule by mouth once daily. rizatriptan (MAXALT PREDATORY ANIMAL HUNTER) 5 mg disintegrating tablet Take 1 tablet by mouth as needed. May repeat in 2 hours if needed. cyclobenzaprine (FLEXERIL) 10 mg tablet Take 1 tablet by mouth twice daily as needed for muscle spasm. cephALEXin (KEFLEX) 500 mg capsule TAKE 1 CAPSULE BY MOUTH EVERY DAY AT BEDTIME ondansetron orally disintegrating (ZOFRAN ODT) 4 mg disintegrating tablet Take 1 tablet by mouth every 6 hours as needed for nausea/vomiting. sertraline (ZOLOFT) 25 mg tablet Take 1 tablet by mouth once daily. for PTSD vibegron (GEMTESA) 75 mg tablet (Patient not taking: Reported on 03/07/2023) naproxen (NAPROSYN) 500 mg tablet Take 1 tablet by mouth twice daily with meals. Take with food. As needed for headache (Patient not taking: Reported on 03/07/2023) No current facility-administered medications for this visit. Review of Systems Objective BP 104/60 Pulse 87 Temp 37.1 C (98.7 F) Resp 18 Wt 45.8 kg (101 lb) LMP 03/18/2023 (Approximate) SpO2 97% BMI 18.47 kg/m Physical Exam Constitutional: Appearance: Normal appearance. HENT: Head: Normocephalic. Eyes: Conjunctiva/sclera: Conjunctivae normal. Cardiovascular: Rate and Rhythm: Normal rate and regular rhythm. Heart sounds: Normal heart sounds. Pulmonary: Effort: Pulmonary effort is normal. Breath sounds: Normal breath sounds. Skin: General: Skin is warm and dry. Neurological: General: No focal deficit present. Mental Status: She is alert and oriented to person, place, and time. Psychiatric: Mood and Affect: Mood normal. Behavior: Behavior normal. Thought Content: Thought content normal. Judgment: Judgment normal. Assessment and Plan Encounter Diagnosis ICD-10-CM 1. Muscle spasm M62.838 cyclobenzaprine (FLEXERIL) 10 mg tablet 2. Migraine with aura and without status migrainosus, not intractable G43.109 Managed by neurology; noted plans for meds 3. Chronic daily headache R51.9 Follow with neurology for headaches as noted above Above issues addressed with patient. Patient involved in shared decision making for management of medical issues. History and medications reviewed. Epic updated as needed Refills and/or prescriptions taken care of and meds adjusted as indicated after reviewed history, exam and labs. Health Maintenance reviewed. Updated record and/or ordered tests as recorded. Encouraged on efforts at healthy diet and regular exercise and adequate sleep. Elkin Lin MD documented in this encounter [facility] 03-25-2023 Miscellaneous Notes Patient has been identified by name and date of : Yes Patient phones for refill(s): Requested Prescriptions Pending Prescriptions Disp Refills cyclobenzaprine (FLEXERIL) 10 mg tablet 21 tablet 0 Sig: Take 1 tablet by mouth twice daily as needed for muscle spasm. Date of last office visit in primary care: HANNAH 03/07/23 NOV 03/25/23 Last 2 Encounter Wt Readings: Date: Wt: 03/07/2023 47.4 kg (104 lb 9.6 oz) 01/29/2023 47.6 kg (105 lb) Please advise. Thank you. MYRTLE Jarrett documented in this encounter [facility] 03-25-2023 Miscellaneous Notes Physician: Dr. Worthy Call from pharmacy requesting refill. Please E-Scribe Last OV: 03/07/[address] Worthy Future OV: no future appointments scheduled with Dr. Worthy Requested Prescriptions Pending Prescriptions Disp Refills rizatriptan (MAXALT PREDATORY ANIMAL HUNTER) 5 mg disintegrating tablet 12 tablet 2 Sig: Take 1 tablet by mouth as needed. May repeat in 2 hours if needed. Pharmacy Name: [facility] Phone #: [phone] 03/07/2023 Assessment and Plan Patient is 28 years old with migraine headache as detailed above Discussed headache management Acute and preventive No orders found for this visit on 03/07/23. documented in this encounter [facility] 03-15-2023 Note . MICRO - Microbiology PROCEDURE: Urine Culture [*1] SOURCE: Urine, Clean Catch BODY SITE: COLLECTED DATE/TIME: 03/13/2023 10:01 EDT RECEIVED DATE/TIME: 03/13/2023 17:08 EDT START DATE/TIME: 03/13/2023 17:09 EDT FREE TEXT SOURCE: FINAL REPORTS Final Report [] Verified Date/Time/Personnel: 03/15/2023 11:27 EDT >100,000 cfu/ml Diphtheriods Sensitivity testing is not recommended for one of the following reasons: 1. Established susceptibility patterns are available or 2. Interpretative criteria are not available. PRELIMINARY REPORTS Preliminary Report [] Verified Date/Time/Personnel: 03/14/2023 07:55 EDT No growth to date Performing Locations *1: This test was performed at: [address], [facility]- , [facility] ([place]) 03-08-2023 Note . MICRO - Microbiology PROCEDURE: Urine Culture [*1] SOURCE: Urine, Clean Catch BODY SITE: COLLECTED DATE/TIME: 03/06/2023 15:41 EDT RECEIVED DATE/TIME: 03/06/2023 19:49 EDT START DATE/TIME: 03/06/2023 19:49 EDT FREE TEXT SOURCE: FINAL REPORTS Final Report [] Verified Date/Time/Personnel: 03/08/2023 11:19 EDT >100,000 cfu/ml Mixed growth consistent with normal urogenital leonor. PRELIMINARY REPORTS Preliminary Report [] Verified Date/Time/Personnel: 03/07/2023 10:00 EDT No growth to date Performing Locations *1: This test was performed at: [address], [address] , [facility] ([place]) 03-07-2023 Note HNO ID: [id number] Author: Radames Worthy MD Service: ? Author Type: Physician Type: Progress Notes Filed: 03/27/2023 8:44 AM Note Text: Follow up visit March 07, 2023 28 years old woman with intractable chronic headache , Side effects with elavil , Confused and dizzy Zoloft didn't help the headache ,but her depression is better Headaches daily 20 to 30 days a month Each headache for half day to 4 days So headache is not daily as in previous visits , But still disabling for her Muscle relaxant help and helps her to sleep at night Discussed other options for headache management , For now will try another acute and preventive medication Prescription written Zonegran 25 mg daily for prevention Maxalt as needed 1-Maintain regular sleep schedule. 2-Limit over the counter medications and prescription rescue meds to 2 days per week or less 3-Maintain headache diary. 4-Limit caffeine to 1-2, 8 oz cups per day or less (300 mg) 5-Limit diet sodas to12 oz or less per day. Avoid other sources of nutrasweet. 6-Avoid dietary triggers. (list given to pt) 7-Eat regular, frequent meals. 8- Keep hydrated. Drink at least 6-8, 8 oz glasses of water/d Intractable daily Headache ,in a previous visit as shown below Subjective HISTORY AND PHYSICAL Yohana Galindo 27 year old woman ,complaining of migraine headache that was daily for the last 2 years Before that much less frequent headache. She prescribed muscle relaxer that is working well on her migraine Left eye looking through kleidoscope for one hour then can go away with no headache after medications Feeling milder pain Naprosyn also used with some relief . Visual aura, pain behind the eye and back of neck and shoulder blades Back of head ,neck pain . Neck pain even without headache Blurred vision, nausea vomitng phootphobia phonophobia Goes and lies down in a dark quiet place After taking zoloft and flexeril a month ,headache improved Breakthrough episodes 2 episodes of migriane ,lasting all day Aura every other day Before flexeril she wasn't sleeping well at night Review of Systems Objective 03/07/23 1631 BP: 106/58 BP Site: Left Arm BP Position: Sitting BP Cuff Size: Regular Adult Pulse: 92 SpO2: 100% Weight: 47.4 kg (104 lb 9.6 oz) Height: 157.5 cm (5' 2 ) Physical Exam EXAM: NOSE: no erythema or exudate PHARYNX: normal, no erythema NECK: supple and no adenopathy CHEST: Normal chest wall exam Neurological Exam MENTAL STATUS: Alert, oriented to person, place and time and Follows commands CRANIAL NERVES: Visual rbyant intact to confrontation, Extraocular movements intact, No facial droop or ptosis, No dysarthria, and Tongue protrudes midline MOTOR: No drift and Normal tone MOTOR STRENGTH: Upper and lower extremity 5/5 bilaterally REFLEXES: UE and LE reflexes are equal and reactive SENSATION: Intact light touch and pinprick COORDINATION: Finger-to- nose-finger intact bilaterally GAIT: Normal-based PAST MEDICAL HISTORY Diagnosis Date History of headache Interstitial cystitis PTSD (post-traumatic stress disorder) Recurrent UTI (urinary tract infection) Current Outpatient Medications Medication Sig Dispense Refill cephALEXin (KEFLEX) 500 mg capsule TAKE 1 CAPSULE BY MOUTH EVERY DAY AT BEDTIME ondansetron orally disintegrating (ZOFRAN ODT) 4 mg disintegrating tablet Take 1 tablet by mouth every 6 hours as needed for nausea/vomiting. 30 tablet 0 sertraline (ZOLOFT) 25 mg tablet Take 1 tablet by mouth once daily. for PTSD 30 tablet 11 rizatriptan (MAXALT PREDATORY ANIMAL HUNTER) 5 mg disintegrating tablet Take 1 tablet by mouth as needed. May repeat in 2 hours if needed. 12 tablet 2 cyclobenzaprine (FLEXERIL) 10 mg tablet Take 1 tablet by mouth twice daily as needed for muscle spasm. 21 tablet 1 zonisamide (ZONEGRAN) 25 mg capsule Take 1 capsule by mouth once daily. 30 capsule 0 vibegron (GEMTESA) 75 mg tablet (Patient not taking: Reported on 03/07/2023) No current facility-administered medications for this visit. Social Connections: Socially Isolated (11/06/2022) Social Connection and Isolation Panel [NHANES] Frequency of Communication with Friends and Family: Twice a week Frequency of Social Gatherings with Friends and Family: Never Attends Nondenominational Services: Never Active Member of Clubs or Organizations: No Attends Club or Organization Meetings: Never Marital Status: Living with partner No diagnosis found. Assessment and Plan Patient is 28 years old with chronic migraine headache,intractable as detailed above Discussed headache management Acute and preventive No orders found for this visit on 03/07/23. Total time in minutes spent with patient, reviewing records, labs, imaging, formulating plan, and documentin minutes with more than 50% of the time spent in patient education/counselling/coordinati ng care with the patient and /or family. Radames (more content not included)... [facility] 03-07-2023 History of Presen t illness Narrative Follow up visit March 07, 2023 28 years old woman with intractable chronic headache , Side effects with elavil , Confused and dizzy Zoloft didn't help the headache ,but her depression is better Headaches daily 20 to 30 days a month Each headache for half day to 4 days So headache is not daily as in previous visits , But still disabling for her Muscle relaxant help and helps her to sleep at night Discussed other options for headache management , For now will try another acute and preventive medication Prescription written Zonegran 25 mg daily for prevention Maxalt as needed 1-Maintain regular sleep schedule. 2-Limit over the counter medications and prescription rescue meds to 2 days per week or less 3-Maintain headache diary. 4-Limit caffeine to 1-2, 8 oz cups per day or less (300 mg) 5-Limit diet sodas to12 oz or less per day. Avoid other sources of nutrasweet. 6-Avoid dietary triggers. (list given to pt) 7-Eat regular, frequent meals. 8- Keep hydrated. Drink at least 6-8, 8 oz glasses of water/d Intractable daily Headache ,in a previous visit as shown below Subjective HISTORY AND PHYSICAL Yohana Galindo 27 year old woman ,complaining of migraine headache that was daily for the last 2 years Before that much less frequent headache. She prescribed muscle relaxer that is working well on her migraine Left eye looking through kleidoscope for one hour then can go away with no headache after medications Feeling milder pain Naprosyn also used with some relief . Visual aura, pain behind the eye and back of neck and shoulder blades Back of head ,neck pain . Neck pain even without headache Blurred vision, nausea vomitng phootphobia phonophobia Goes and lies down in a dark quiet place After taking zoloft and flexeril a month ,headache improved Breakthrough episodes 2 episodes of migriane ,lasting all day Aura every other day Before flexeril she wasn't sleeping well at night Review of Systems Objective 03/07/23 1631 BP: 106/58 BP Site: Left Arm BP Position: Sitting BP Cuff Size: Regular Adult Pulse: 92 SpO2: 100% Weight: 47.4 kg (104 lb 9.6 oz) Height: 157.5 cm (5' 2 ) Physical Exam EXAM: NOSE: no erythema or exudate PHARYNX: normal, no erythema NECK: supple and no adenopathy CHEST: Normal chest wall exam Neurological Exam MENTAL STATUS: Alert, oriented to person, place and time and Follows commands CRANIAL NERVES: Visual bryant intact to confrontation, Extraocular movements intact, No facial droop or ptosis, No dysarthria, and Tongue protrudes midline MOTOR: No drift and Normal tone MOTOR STRENGTH: Upper and lower extremity 5/5 bilaterally REFLEXES: UE and LE reflexes are equal and reactive SENSATION: Intact light touch and pinprick COORDINATION: Finger-to- nose-finger intact bilaterally GAIT: Normal-based PAST MEDICAL HISTORY Diagnosis Date History of headache Interstitial cystitis PTSD (post-traumatic stress disorder) Recurrent UTI (urinary tract infection) Current Outpatient Medications Medication Sig Dispense Refill cephALEXin (KEFLEX) 500 mg capsule TAKE 1 CAPSULE BY MOUTH EVERY DAY AT BEDTIME ondansetron orally disintegrating (ZOFRAN ODT) 4 mg disintegrating tablet Take 1 tablet by mouth every 6 hours as needed for nausea/vomiting. 30 tablet 0 sertraline (ZOLOFT) 25 mg tablet Take 1 tablet by mouth once daily. for PTSD 30 tablet 11 rizatriptan ([employer]) 5 mg disintegrating tablet Take 1 tablet by mouth as needed. May repeat in 2 hours if needed. 12 tablet 2 cyclobenzaprine (FLEXERIL) 10 mg tablet Take 1 tablet by mouth twice daily as needed for muscle spasm. 21 tablet 1 zonisamide (ZONEGRAN) 25 mg capsule Take 1 capsule by mouth once daily. 30 capsule 0 vibegron (GEMTESA) 75 mg tablet (Patient not taking: Reported on 03/07/2023) No current facility-administered medications for this visit. Social Connections: Socially Isolated (11/06/2022) Social Connection and Isolation Panel [NHANES] Frequency of Communication with Friends and Family: Twice a week Frequency of Social Gatherings with Friends and Family: Never Attends Nondenominational Services: Never Active Member of Clubs or Organizations: No Attends Club or Organization Meetings: Never Marital Status: Living with partner No diagnosis found. Assessment and Plan Patient is 28 years old with chronic migraine headache,intractable as detailed above Discussed headache management Acute and preventive No orders found for this visit on 03/07/23. Total time in minutes spent with patient, reviewing records, labs, imaging, formulating plan, and documentin minutes with more than 50% of the time spent in patient education/counselling/coordinati ng care with the patient and /or family. Radames Worthy M.D. [facility] Department of Neurology documented in this encounter [facility] 02-28-2023 Miscellaneous Notes Spoke with Dr. Worthy to let her know the patients concern about the Elavil contributing to your headaches, Dr. Worthy said it is appropriate to discontinue the Elavil at this time. [employer] message was sent to the patient to make aware. Patient called in about Refill and wanted to let Dr Worthy know that she is continuing to get headaches daily and she believes it is from the medication. Leonie Ovalles If she gets headache from that specific medication then she doesn't have to take it Will discontinue that medication and will reevaluate her in virtual visit Thanks Images from the original note were not included. TCA Refill Checklist Failed 02/28/2023 12:01 AM LFT within the last 12 months Blood pressure within the last 12 months Visit with provider within the last 12 months Prescription pended to requested pharmacy and forwarded to provider for review. HANNAH: 01/29/2023 NOV: 03/07/2023 Last prescribed: 01/29/2023 documented in this encounter [facility] 02-19-2023 Miscellaneous Notes Spoke to pharmacist who was advised of provider's message and verbalized understanding. Yes Patient will be watching if any symptoms of serotonin syndrome Both are in small dose Rossana, pharmacist, with [facility] pharmacy in [place], called stating that amitriptyline (ELAVIL) 10 mg tablet interacts with Zoloft, which patient already takes. Pharmacist needs clarification if this is known to Dr. Worthy, and if it is documented that she will be watching for Serotonin Syndrome? Please advise and call [facility] pharmacy at [phone] with recommendations. Michelle Gr documented in this encounter [facility] 02-11-2023 Miscellaneous Notes Forms refaxed and patient updated via [employer]. Nova Mcclelland LPN Pt calling to check status.on FMLA papers. See phone note form 01-02-23. Pt came in and signed her part and they should of been faxed to [place]. Pt had the forms re-faxed on 01-24-23 because [place] has not recevied them. Pt spoke with Ashlee 1 week ago and they have not received the form. Please advise pt anupam. Alexandra Park LPN Patient calls to report that she was in and signed the release form for FMLA paperwork to be sent to [place] but they haven't received it yet. Patient asking for forms to be faxed. The fax number for Ashlee is on the forms. Julia Bullard RN documented in this encounter [facility] 01-29-2023 Note HNO ID: [id number] Author: Elkin Lin MD Service: ? Author Type: Physician Type: Progress Notes Filed: 02/19/2023 6:22 PM Note Text: This note was created using [employer]riter. Subjective Eliana Guillen is a 27 year old female. Patient presents with: ED Follow-up: [facility] ED follow up from 01/26/2023 SUBJECTIVE: Eliana Guillen is a 27 year old year old lady here today for ER follow up appointment for review of medical conditions. noted that was treated with cephalexin 500 mg twice daily for 7 days Burning pain not better Spasms better-Pyridium seems to be helping. Has been on Cephalexin 250 mg once daily per urologist Dr. Velázquez. had recent cystoscopy 01/16. No antibiotic given after this. Macrobid and bactrim had not helped recently. PAST MEDICAL HISTORY Diagnosis Date History of headache Interstitial cystitis PTSD (post-traumatic stress disorder) Recurrent UTI (urinary tract infection) Current Outpatient Medications Medication Sig amitriptyline (ELAVIL) 10 mg tablet Take 1 tablet by mouth daily at bedtime. phenazopyridine (PYRIDIUM) 200 mg tablet Take 1 tablet by mouth three times daily as needed for pain (urinary burning. Turns urine orange.) for up to 2 days. cyclobenzaprine (FLEXERIL) 10 mg tablet Take 1 tablet by mouth twice daily as needed for muscle spasm. vibegron (GEMTESA) 75 mg tablet ondansetron orally disintegrating (ZOFRAN ODT) 4 mg disintegrating tablet Take 1 tablet by mouth every 6 hours as needed for nausea/vomiting. sertraline (ZOLOFT) 25 mg tablet Take 1 tablet by mouth once daily. for PTSD cephALEXin (KEFLEX) 250 mg capsule TAKE 1 CAPSULE BY MOUTH EVERY DAY AT BEDTIME (Patient not taking: Reported on 01/29/2023) naproxen (NAPROSYN) 500 mg tablet Take 1 tablet by mouth twice daily with meals. Take with food. As needed for headache (Patient not taking: No sig reported) No current facility-administered medications for this visit. D Review of Systems Objective BP 112/62 Pulse 79 Temp 36.6 ?C (97.8 ?F) Resp 18 Wt 47.6 kg (105 lb) LMP 09/08/2019 SpO2 97% BMI 19.20 kg/m? Physical Exam Constitutional: Appearance: Normal appearance. HENT: Head: Normocephalic. Eyes: Conjunctiva/sclera: Conjunctivae normal. Cardiovascular: Rate and Rhythm: Normal rate and regular rhythm. Heart sounds: Normal heart sounds. Pulmonary: Effort: Pulmonary effort is normal. Breath sounds: Normal breath sounds. Abdominal: General: Abdomen is flat. Palpations: Abdomen is soft. Tenderness: There is no right CVA tenderness or left CVA tenderness. Skin: General: Skin is warm and dry. Neurological: General: No focal deficit present. Mental Status: She is alert and oriented to person, place, and time. Psychiatric: Mood and Affect: Mood normal. Behavior: Behavior normal. Thought Content: Thought content normal. Judgment: Judgment normal. Assessment and Plan Encounter Diagnosis ICD-10-CM 1. Acute cystitis with hematuria N30.01 URINALYSIS, WITH MICROSCOPIC URINE CULTURE Above issues addressed with patient. Patient involved in shared decision making for management of medical issues. History and medications reviewed. Epic updated as needed Refills and/or prescriptions taken care of and meds adjusted as indicated after reviewed history, exam and labs. Further evaluation and treatment as indicated. Elkin Lin MD [facility] 01-29-2023 History of Presen t illness Narrative This note was created using [employer]riter. Subjective Eliana Guillen is a 27 year old female. Patient presents with: ED Follow-up: [facility] ED follow up from 01/26/2023 SUBJECTIVE: Eliana Guillen is a 27 year old year old lady here today for ER follow up appointment for review of medical conditions. noted that was treated with cephalexin 500 mg twice daily for 7 days Burning pain not better Spasms better-Pyridium seems to be helping. Has been on Cephalexin 250 mg once daily per urologist Dr. Velázquez. had recent cystoscopy 01/16. No antibiotic given after this. Macrobid and bactrim had not helped recently. PAST MEDICAL HISTORY Diagnosis Date History of headache Interstitial cystitis PTSD (post-traumatic stress disorder) Recurrent UTI (urinary tract infection) Current Outpatient Medications Medication Sig amitriptyline (ELAVIL) 10 mg tablet Take 1 tablet by mouth daily at bedtime. phenazopyridine (PYRIDIUM) 200 mg tablet Take 1 tablet by mouth three times daily as needed for pain (urinary burning. Turns urine orange.) for up to 2 days. cyclobenzaprine (FLEXERIL) 10 mg tablet Take 1 tablet by mouth twice daily as needed for muscle spasm. vibegron (GEMTESA) 75 mg tablet ondansetron orally disintegrating (ZOFRAN ODT) 4 mg disintegrating tablet Take 1 tablet by mouth every 6 hours as needed for nausea/vomiting. sertraline (ZOLOFT) 25 mg tablet Take 1 tablet by mouth once daily. for PTSD cephALEXin (KEFLEX) 250 mg capsule TAKE 1 CAPSULE BY MOUTH EVERY DAY AT BEDTIME (Patient not taking: Reported on 01/29/2023) naproxen (NAPROSYN) 500 mg tablet Take 1 tablet by mouth twice daily with meals. Take with food. As needed for headache (Patient not taking: No sig reported) No current facility-administered medications for this visit. D Review of Systems Objective BP 112/62 Pulse 79 Temp 36.6 C (97.8 F) Resp 18 Wt 47.6 kg (105 lb) LMP 09/08/2019 SpO2 97% BMI 19.20 kg/m Physical Exam Constitutional: Appearance: Normal appearance. HENT: Head: Normocephalic. Eyes: Conjunctiva/sclera: Conjunctivae normal. Cardiovascular: Rate and Rhythm: Normal rate and regular rhythm. Heart sounds: Normal heart sounds. Pulmonary: Effort: Pulmonary effort is normal. Breath sounds: Normal breath sounds. Abdominal: General: Abdomen is flat. Palpations: Abdomen is soft. Tenderness: There is no right CVA tenderness or left CVA tenderness. Skin: General: Skin is warm and dry. Neurological: General: No focal deficit present. Mental Status: She is alert and oriented to person, place, and time. Psychiatric: Mood and Affect: Mood normal. Behavior: Behavior normal. Thought Content: Thought content normal. Judgment: Judgment normal. Assessment and Plan Encounter Diagnosis ICD-10-CM 1. Acute cystitis with hematuria N30.01 URINALYSIS, WITH MICROSCOPIC URINE CULTURE Above issues addressed with patient. Patient involved in shared decision making for management of medical issues. History and medications reviewed. Epic updated as needed Refills and/or prescriptions taken care of and meds adjusted as indicated after reviewed history, exam and labs. Further evaluation and treatment as indicated. Elkin Lin MD documented in this encounter [facility] 01-29-2023 Note HNO ID: [id number] Author: Radames Worthy MD Service: ? Author Type: Physician Type: Progress Notes Filed: 02/18/2023 5:13 PM Note Text: January 29, 2023 Headache Subjective HISTORY AND PHYSICAL Yohana Galindo 27 year old woman ,complaining of migraine headache that was daily for the last 2 years Before that much less frequent She prescribed muscle relaxer that is working well on her migriane Left eye looking through kleidoscope for one hour then can go away with no headache after medications Feeling milder pain Naprosyn also used with some relief Visual aura, pain behind the eye and back of neck and shoulder blades Back of head ,neck pain Neck pain even without headache Blurred vison nausea vomitng phootphobia phonophobia Goes and lies down in a dark quiet place After taking zoloft and flexeril a month ,headache improved Breakthrough episodes 2 episodes of migriane ,lasting all day Aura every other day Before flexeril she wasn't sleeping well at night Review of Systems Review of Systems Constitutional Positive for Fatigue Eyes Positive for Vision loss or change Cardiovascular Positive for Lightheadedness Respiratory: Negative GI Positive for Constipation and Nausea/Vomiting Positive for Urgency and Incontinence Endocrine: Negative Musculoskeletal Positive for Back Pain, Joint Swelling, Stiff Joints and Muscle Pain Integumentary Positive for Rashes Heme/Lymph: Negative Allergy/Immunologic: Negative Neurologic Positive for Headache and Slurred Speech Psychiatric Positive for Stress or Conflicts, Depression, Anxiety, Irritability and Hallucinations Patient's Review of Systems has been reviewed with the patient and updated as appropriate. Objective 01/29/23 0948 BP: 122/73 BP Site: Left Arm BP Position: Sitting BP Cuff Size: Regular Adult Pulse: 108 Resp: 16 SpO2: 98% Weight: 46.3 kg (102 lb) Height: 157.5 cm (5' 2 ) Physical Exam EXAM: NOSE: no erythema or exudate PHARYNX: normal, no erythema NECK: supple and no adenopathy CHEST: Normal chest wall exam Neurological Exam MENTAL STATUS: Alert, oriented to person, place and time and Follows commands CRANIAL NERVES: Visual bryant intact to confrontation, Extraocular movements intact, No facial droop or ptosis, No dysarthria, and Tongue protrudes midline MOTOR: No drift and Normal tone MOTOR STRENGTH: Upper and lower extremity 5/5 bilaterally REFLEXES: UE and LE reflexes are equal and reactive SENSATION: Intact light touch and pinprick COORDINATION: Finger-to- nose-finger intact bilaterally GAIT: Normal-based PAST MEDICAL HISTORY Diagnosis Date History of headache Interstitial cystitis PTSD (post-traumatic stress disorder) Recurrent UTI (urinary tract infection) Current Outpatient Medications Medication Sig Dispense Refill cyclobenzaprine (FLEXERIL) 10 mg tablet Take 1 tablet by mouth twice daily as needed for muscle spasm. 21 tablet 0 cephALEXin (KEFLEX) 250 mg capsule TAKE 1 CAPSULE BY MOUTH EVERY DAY AT BEDTIME (Patient not taking: Reported on 01/29/2023) vibegron (GEMTESA) 75 mg tablet ondansetron orally disintegrating (ZOFRAN ODT) 4 mg disintegrating tablet Take 1 tablet by mouth every 6 hours as needed for nausea/vomiting. 30 tablet 0 sertraline (ZOLOFT) 25 mg tablet Take 1 tablet by mouth once daily. for PTSD 30 tablet 11 amitriptyline (ELAVIL) 10 mg tablet Take 1 tablet by mouth daily at bedtime. 30 tablet 0 naproxen (NAPROSYN) 500 mg tablet Take 1 tablet by mouth twice daily with meals. Take with food. As needed for headache (Patient not taking: No sig reported) 60 tablet 1 No current facility-administered medications for this visit. Social Connections: Socially Isolated (11/06/2022) Social Connection and Isolation Panel [NHANES] Frequency of Communication with Friends and Family: Twice a week Frequency of Social Gatherings with Friends and Family: Never Attends Nondenominational Services: Never Active Member of Clubs or Organizations: No Attends Club or Organization Meetings: Never Marital Status: Living with partner Chronic daily headache Migraine with aura and without status migrainosus, not intractable (primary encounter diagnosis) Assessment and Plan Patient is 28 years old with migraine headache as detailed above Discussed headache management Acute and preventive Office Visit on 01/29/23 VITAMIN B12 BLOOD TSH BLD CONSULT TO NEUROLOGY Total time in minutes spent with patient, reviewing records, labs, imaging, formulating plan, and documentin minutes with more than 50% of the time spent in patient education/counselling/coordinati ng care with the patient and /or family. January 29, 2023 Radames Worthy M.D. [facility] Department of Neurology [facility] 01-29-2023 History of Presen t illness Narrative January 29, 2023 Headache Subjective HISTORY AND PHYSICAL Yohana Galindo 27 year old woman ,complaining of migraine headache that was daily for the last 2 years Before that much less frequent She prescribed muscle relaxer that is working well on her migriane Left eye looking through kleidoscope for one hour then can go away with no headache after medications Feeling milder pain Naprosyn also used with some relief Visual aura, pain behind the eye and back of neck and shoulder blades Back of head ,neck pain Neck pain even without headache Blurred vison nausea vomitng phootphobia phonophobia Goes and lies down in a dark quiet place After taking zoloft and flexeril a month ,headache improved Breakthrough episodes 2 episodes of migriane ,lasting all day Aura every other day Before flexeril she wasn't sleeping well at night Review of Systems Review of Systems Constitutional Positive for Fatigue Eyes Positive for Vision loss or change Cardiovascular Positive for Lightheadedness Respiratory: Negative GI Positive for Constipation and Nausea/Vomiting Positive for Urgency and Incontinence Endocrine: Negative Musculoskeletal Positive for Back Pain, Joint Swelling, Stiff Joints and Muscle Pain Integumentary Positive for Rashes Heme/Lymph: Negative Allergy/Immunologic: Negative Neurologic Positive for Headache and Slurred Speech Psychiatric Positive for Stress or Conflicts, Depression, Anxiety, Irritability and Hallucinations Patient's Review of Systems has been reviewed with the patient and updated as appropriate. Objective 01/29/23 0948 BP: 122/73 BP Site: Left Arm BP Position: Sitting BP Cuff Size: Regular Adult Pulse: 108 Resp: 16 SpO2: 98% Weight: 46.3 kg (102 lb) Height: 157.5 cm (5' 2 ) Physical Exam EXAM: NOSE: no erythema or exudate PHARYNX: normal, no erythema NECK: supple and no adenopathy CHEST: Normal chest wall exam Neurological Exam MENTAL STATUS: Alert, oriented to person, place and time and Follows commands CRANIAL NERVES: Visual bryant intact to confrontation, Extraocular movements intact, No facial droop or ptosis, No dysarthria, and Tongue protrudes midline MOTOR: No drift and Normal tone MOTOR STRENGTH: Upper and lower extremity 5/5 bilaterally REFLEXES: UE and LE reflexes are equal and reactive SENSATION: Intact light touch and pinprick COORDINATION: Finger-to- nose-finger intact bilaterally GAIT: Normal-based PAST MEDICAL HISTORY Diagnosis Date History of headache Interstitial cystitis PTSD (post-traumatic stress disorder) Recurrent UTI (urinary tract infection) Current Outpatient Medications Medication Sig Dispense Refill cyclobenzaprine (FLEXERIL) 10 mg tablet Take 1 tablet by mouth twice daily as needed for muscle spasm. 21 tablet 0 cephALEXin (KEFLEX) 250 mg capsule TAKE 1 CAPSULE BY MOUTH EVERY DAY AT BEDTIME (Patient not taking: Reported on 01/29/2023) vibegron (GEMTESA) 75 mg tablet ondansetron orally disintegrating (ZOFRAN ODT) 4 mg disintegrating tablet Take 1 tablet by mouth every 6 hours as needed for nausea/vomiting. 30 tablet 0 sertraline (ZOLOFT) 25 mg tablet Take 1 tablet by mouth once daily. for PTSD 30 tablet 11 amitriptyline (ELAVIL) 10 mg tablet Take 1 tablet by mouth daily at bedtime. 30 tablet 0 naproxen (NAPROSYN) 500 mg tablet Take 1 tablet by mouth twice daily with meals. Take with food. As needed for headache (Patient not taking: No sig reported) 60 tablet 1 No current facility-administered medications for this visit. Social Connections: Socially Isolated (11/06/2022) Social Connection and Isolation Panel [NHANES] Frequency of Communication with Friends and Family: Twice a week Frequency of Social Gatherings with Friends and Family: Never Attends Nondenominational Services: Never Active Member of Clubs or Organizations: No Attends Club or Organization Meetings: Never Marital Status: Living with partner Chronic daily headache Migraine with aura and without status migrainosus, not intractable (primary encounter diagnosis) Assessment and Plan Patient is 28 years old with migraine headache as detailed above Discussed headache management Acute and preventive Office Visit on 01/29/23 VITAMIN B12 BLOOD TSH BLD CONSULT TO NEUROLOGY Total time in minutes spent with patient, reviewing records, labs, imaging, formulating plan, and documentin minutes with more than 50% of the time spent in patient education/counselling/coordinati ng care with the patient and /or family. January 29, 2023 Radames Worthy M.D. [facility] Department of Neurology documented in this encounter [facility] 01-28-2023 Miscellaneous Notes No answer. Left providers message and ask to call office and ask to speak to a nurse with any questions or concerns. Can add Pyridium. Prescription sent to [facility] pharmacy Pt went to [facility] ER 01-26-23. Pt was dx with UTI and put on Cephalexin 500 mg. taking 1 every 12 hrs. She was given 14 pills. They sent the urine out for culture and told pt to check with her pcp on results that they would be sent to the office. Pt still having staining when going to the bathroom. Uncontrollable spasms, burning, frequency and blood in the urine. [facility] ER FU has been scheduled for tomorrow 01-29-23. Alexandra Park LPN documented in this encounter [facility] 01-24-2023 Miscellaneous Notes Patient has been identified by name and date of : Yes, Provider Dr. Lin Date 01/24/23 Time 11:52 am Patient phones for refill(s): Requested Prescriptions Pending Prescriptions Disp Refills cyclobenzaprine (FLEXERIL) 10 mg tablet 21 tablet 0 Sig: Take 1 tablet by mouth twice daily as needed for muscle spasm. Date of last office visit in primary care: 01/15/23 next apt 03/25/23 Last 2 Encounter Wt Readings: Date: Wt: 01/01/2023 47.2 kg (104 lb) 11/08/2022 46.7 kg (103 lb) Previous labs/tests for medication: Not applicable Thank you. Alexandra Park LPN documented in this encounter [facility] 01-15-2023 Note HNO ID: [id number] Author: Elkin Lin MD Service: ? Author Type: Physician Type: Progress Notes Filed: 01/15/2023 11:47 AM Note Text: VIRTUAL VISIT PROGRESS NOTE This is a virtual visit using [employer] video visit. It required patient-provider interaction for the medical decision making as documented below. I have communicated my name and active licensure. The patient's identity and physical location were verified at the time of this visit. Either the patient or their legal member service representative has been informed of the risks and benefits of -- and alternatives to -- treatment through a remote evaluation and consents to proceed with the evaluation remotely. Eliana Guillen is a 27 year old female seen for form completion for Ashlee. HISTORY REVIEWED (electronic chart updated): PAST MEDICAL HISTORY Diagnosis Date History of headache Interstitial cystitis PTSD (post-traumatic stress disorder) Recurrent UTI (urinary tract infection) PAST SURGICAL HISTORY Procedure Laterality Date SECTION HX CYSTOSCOPY,URETEROSC,BIOPSY x 2 NONE FAMILY HISTORY Problem Relation Age of Onset Depression Mother Anxiety disorder Mother Anxiety disorder Father Depression Father Diabetes Maternal Grandfather Cancer Paternal Grandmother Diabetes Paternal Grandfather Cancer Paternal Aunt Lung Social History Tobacco Use Smoking status: Every Day Packs/day: 0.50 Years: 5.00 Pack years: 2.50 Types: Cigarettes Smokeless tobacco: Never Vaping Use Vaping Use: Some days Substance Use Topics Alcohol use: No Drug use: No Comment: history narcotic abuse years ago Current Outpatient Medications Medication Sig cyclobenzaprine (FLEXERIL) 10 mg tablet Take 1 tablet by mouth twice daily as needed for muscle spasm. cephALEXin (KEFLEX) 250 mg capsule TAKE 1 CAPSULE BY MOUTH EVERY DAY AT BEDTIME vibegron (GEMTESA) 75 mg tablet ondansetron orally disintegrating (ZOFRAN ODT) 4 mg disintegrating tablet Take 1 tablet by mouth every 6 hours as needed for nausea/vomiting. sertraline (ZOLOFT) 25 mg tablet Take 1 tablet by mouth once daily. for PTSD naproxen (NAPROSYN) 500 mg tablet Take 1 tablet by mouth twice daily with meals. Take with food. As needed for headache No current facility-administered medications for this visit. ALLERGIES Allergen Reactions Bee Sting Hives, Swelling Bees Swelling, Shortness of Breath REVIEW OF SYSTEMS: As noted in HPI PHYSICAL EXAMINATION: VIDEO EXAM: (if completed, performed via video enabled technology) GENERAL: alert and appropriate, in no distress, well-hydrated, well nourished, and happy, smiling, interactive HEAD: normocephalic, no abnormality or lesion noted EYES: no injection and visual acuity is grossly normal RESPIRATORY: breathing non-labored Encounter Diagnosis ICD-10-CM 1. Migraine with aura and without status migrainosus, not intractable G43.109 2. Chronic daily headache R51.9 Above issues addressed with patient. Patient involved in shared decision making for management of medical issues. History and medications reviewed. Epic updated as needed Refills and/or prescriptions taken care of and meds adjusted as indicated after reviewed history, exam and labs. Form for Ashlee. FMLA completed. When gets severe migraines, unable to work. Can be 2 to 4 times a month lasting 2 to 4 days. Will see neurologist as scheduled. Further evaluation and treatment as indicated. She needs to sign release. Further evaluation and treatment as indicated. Elkin Lin MD There are no Patient Instructions on file for this visit. I spent a total of 15 minutes on the date of the service which included preparing to see the patient, [id number] patient care, completing clinical documentation, and obtaining and/or reviewing separately obtained history and completing form for Ashlee. Elkin Lin MD [facility] 01-03-2023 Miscellaneous Notes Spoke with patient and VV appointment was scheduled Needs VV scheduled to review and complete forms as discussed with patient at her appointment recently. Not sure if needs to be no sooner than 7 days from recent appointment so if not sure, make sure appointment at least 7 days from recent appointment. Forms received from Ashlee concerning patient disability/leave. Provider to review and address. Nova Mcclelland LPN documented in this encounter [facility] 01-01-2023 Note HNO ID: [id number] Author: Elkin Lin MD Service: ? Author Type: Physician Type: Progress Notes Filed: 01/01/2023 12:38 PM Note Text: This note was created using [employer]. Subjective Eliana Guillen is a 27 year old female. Patient presents with: F/U 6 months SUBJECTIVE: Eliana Guillen is a 27 year old year old lady here today for 6 month follow up appointment for review of medical conditions. Noted has migraines. Has already tried naproxen, ibuprofen and acetaminophen--none had been effective for treating her headaches. Excedrin migraine has helped thought not every time. Having daily headaches practically. Can last couple hours to couple days. Sometimes will have tension headache that goes to neck and shoulder blades. Most of the time gets aura first--sometimes left, sometimes right with little dots and sometimes blocks vision. Gets really nauseous sometimes. had not tried Zofran yet. Headache can be anywhere on her head.Throbbing headaches. Started having headaches at least 5 years ago and got worse lately. Other issue is FMLA paperwork for headaches, and other issues. Urologist already sent in paperwork for chronic bladder issue. . States was filled out incorrectly. Needed for intermittent leave. Not just for one day that was missed. Diagnoses to include: Interstitial cystitis initial diagnosis then diagnosed with eosinophilic cystitis and reason for referral for resection. PTSD--will need appointments for follow up with provider. Just started on Zoloft 2 days ago. Noted that sister also has PTSD. Migraines--will be referring to neurology. Noted that trigger could be the overhead lights at [facility]. January 16 is cystoscopy with new urologist. Needs bladder resection so was referred from prior urologist to new one. FMLA forms were done 11/08 by Marilia but needs corrected. PAST MEDICAL HISTORY Diagnosis Date History of headache Interstitial cystitis PTSD (post-traumatic stress disorder) Recurrent UTI (urinary tract infection) Current Outpatient Medications Medication Sig cephALEXin (KEFLEX) 250 mg capsule TAKE 1 CAPSULE BY MOUTH EVERY DAY AT BEDTIME vibegron (GEMTESA) 75 mg tablet ondansetron orally disintegrating (ZOFRAN ODT) 4 mg disintegrating tablet Take 1 tablet by mouth every 6 hours as needed for nausea/vomiting. sertraline (ZOLOFT) 25 mg tablet Take 1 tablet by mouth once daily. for PTSD naproxen (NAPROSYN) 500 mg tablet Take 1 tablet by mouth twice daily with meals. Take with food. As needed for headache No current facility-administered medications for this visit. Review of Systems Objective BP 112/62 Pulse 100 Temp 36.6 ?C (97.9 ?F) Resp 18 Wt 47.2 kg (104 lb) LMP 09/08/2019 SpO2 98% BMI 19.02 kg/m? Physical Exam Constitutional: Appearance: Normal appearance. HENT: Head: Normocephalic. Eyes: Conjunctiva/sclera: Conjunctivae normal. Pulmonary: Effort: Pulmonary effort is normal. Skin: Findings: No rash. Neurological: General: No focal deficit present. Mental Status: She is oriented to person, place, and time. Psychiatric: Mood and Affect: Mood normal. Behavior: Behavior normal. Thought Content: Thought content normal. Judgment: Judgment normal. Assessment and Plan Encounter Diagnosis ICD-10-CM 1. Migraine with aura and without status migrainosus, not intractable G43.109 CONSULT TO NEUROLOGY 2. Chronic daily headache R51.9 CONSULT TO NEUROLOGY Some migraines, some tension headaches or both 3. PTSD (post-traumatic stress disorder) F43.10 4. Interstitial cystitis N30.10 5. Eosinophilic cystitis N30.80 D72.18 Above issues addressed with patient. Patient involved in shared decision making for management of medical issues. History and medications reviewed. Epic updated as needed Refills and/or prescriptions taken care of and meds adjusted as indicated after reviewed history, exam and labs. Health Maintenance reviewed. Updated record and/or ordered tests as recorded. Encouraged on efforts at healthy diet and regular exercise and adequate sleep. 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 Referred to neurologist since having daily migraine type headaches and tension headaches. Discussed how each type of headache could trigger the other types symptoms. Will see if flexeril helps with tension headaches at night to prevent migraines later. Can reserve for evening/bedtime use. Try wearing visor or baseball cap at work to see if that helps prevent migraines that get triggered at work from overhead fluorescent lights. Counselor recently diagnosed PTSD. Just started Zoloft. Tolerating 25 mg dose well. Too soon to tell if helping with PTSD or migraines (discussed could help with migraines as well). Consider adding Buspirone. Plan VV after get Ashlee paperwork for FMLA patient states needs corrected. I spent a total of 38 minutes on the date of the servi (more content not included)... [facility] 01-01-2023 History of Presen t illness Narrative This note was created using [employer]. Subjective Eliana Guillen is a 27 year old female. Patient presents with: F/U 6 months SUBJECTIVE: Eliana Guillen is a 27 year old year old lady here today for 6 month follow up appointment for review of medical conditions. Noted has migraines. Has already tried naproxen, ibuprofen and acetaminophen--none had been effective for treating her headaches. Excedrin migraine has helped thought not every time. Having daily headaches practically. Can last couple hours to couple days. Sometimes will have tension headache that goes to neck and shoulder blades. Most of the time gets aura first--sometimes left, sometimes right with little dots and sometimes blocks vision. Gets really nauseous sometimes. had not tried Zofran yet. Headache can be anywhere on her head.Throbbing headaches. Started having headaches at least 5 years ago and got worse lately. Other issue is FMLA paperwork for headaches, and other issues. Urologist already sent in paperwork for chronic bladder issue. . States was filled out incorrectly. Needed for intermittent leave. Not just for one day that was missed. Diagnoses to include: Interstitial cystitis initial diagnosis then diagnosed with eosinophilic cystitis and reason for referral for resection. PTSD--will need appointments for follow up with provider. Just started on Zoloft 2 days ago. Noted that sister also has PTSD. Migraines--will be referring to neurology. Noted that trigger could be the overhead lights at [facility]. January 16 is cystoscopy with new urologist. Needs bladder resection so was referred from prior urologist to new one. FMLA forms were done 11/08 by Marilia but needs corrected. PAST MEDICAL HISTORY Diagnosis Date History of headache Interstitial cystitis PTSD (post-traumatic stress disorder) Recurrent UTI (urinary tract infection) Current Outpatient Medications Medication Sig cephALEXin (KEFLEX) 250 mg capsule TAKE 1 CAPSULE BY MOUTH EVERY DAY AT BEDTIME vibegron (GEMTESA) 75 mg tablet ondansetron orally disintegrating (ZOFRAN ODT) 4 mg disintegrating tablet Take 1 tablet by mouth every 6 hours as needed for nausea/vomiting. sertraline (ZOLOFT) 25 mg tablet Take 1 tablet by mouth once daily. for PTSD naproxen (NAPROSYN) 500 mg tablet Take 1 tablet by mouth twice daily with meals. Take with food. As needed for headache No current facility-administered medications for this visit. Review of Systems Objective BP 112/62 Pulse 100 Temp 36.6 C (97.9 F) Resp 18 Wt 47.2 kg (104 lb) LMP 09/08/2019 SpO2 98% BMI 19.02 kg/m Physical Exam Constitutional: Appearance: Normal appearance. HENT: Head: Normocephalic. Eyes: Conjunctiva/sclera: Conjunctivae normal. Pulmonary: Effort: Pulmonary effort is normal. Skin: Findings: No rash. Neurological: General: No focal deficit present. Mental Status: She is oriented to person, place, and time. Psychiatric: Mood and Affect: Mood normal. Behavior: Behavior normal. Thought Content: Thought content normal. Judgment: Judgment normal. Assessment and Plan Encounter Diagnosis ICD-10-CM 1. Migraine with aura and without status migrainosus, not intractable G43.109 CONSULT TO NEUROLOGY 2. Chronic daily headache R51.9 CONSULT TO NEUROLOGY Some migraines, some tension headaches or both 3. PTSD (post-traumatic stress disorder) F43.10 4. Interstitial cystitis N30.10 5. Eosinophilic cystitis N30.80 D72.18 Above issues addressed with patient. Patient involved in shared decision making for management of medical issues. History and medications reviewed. Epic updated as needed Refills and/or prescriptions taken care of and meds adjusted as indicated after reviewed history, exam and labs. Health Maintenance reviewed. Updated record and/or ordered tests as recorded. Encouraged on efforts at healthy diet and regular exercise and adequate sleep. 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 Referred to neurologist since having daily migraine type headaches and tension headaches. Discussed how each type of headache could trigger the other types symptoms. Will see if flexeril helps with tension headaches at night to prevent migraines later. Can reserve for evening/bedtime use. Try wearing visor or baseball cap at work to see if that helps prevent migraines that get triggered at work from overhead fluorescent lights. Counselor recently diagnosed PTSD. Just started Zoloft. Tolerating 25 mg dose well. Too soon to tell if helping with PTSD or migraines (discussed could help with migraines as well). Consider adding Buspirone. Plan VV after get Ashlee paperwork for FMLA patient states needs corrected. I spent a total of 38 minutes on the date of the service which included [id number] patient care, completing clinical documentation, performing a medically appropriate examination, counseling and educating the patient/family/caregiver, and ordering medications, tests, or procedures. Elkin Lin MD documented in this encounter [facility] 12-19-2022 Note HNO ID: [id number] Author: Hui Nixon APRN.CNP Service: ? Author Type: Nurse Practitioner Type: Progress Notes Filed: 12/19/2022 11:42 AM Note Text: Pt. Cancelled appointment while performing intake review. Sent MyChart message as difficulty connecting with patient. [facility] 12-19-2022 Note HNO ID: [id number] Author: Ina Moore APRN.CNP Service: ? Author Type: Nurse Practitioner Type: Progress Notes Filed: 12/19/2022 11:36 AM Note Text: Patient connected and then immediately lost connection' Appointment cancelled. Fee Waived Ina Moore APRN.CNP [facility] 12-19-2022 History of Presen t illness Narrative Pt. Cancelled appointment while performing intake review. Sent MyChart message as difficulty connecting with patient. documented in this encounter [facility] 12-19-2022 History of Presen t illness Narrative Patient connected and then immediately lost connection' Appointment cancelled. Fee Waived Ina Moore APRN.CNP documented in this encounter [facility] 11-08-2022 Note HNO ID: [id number] Author: Marilia Rosales APRN.APARTMENT ASSISTANT MANAGER Service: ? Author Type: Nurse Specialist Type: Progress Notes Filed: 11/08/2022 10:15 AM Note Text: SUBJECTIVE: COVID-19 VACCINE(1) Never done PNEUMOCOCCAL(1 - PCV) Never done HPV VACCINE(1 - 2-dose series) Never done PAP TESTING Never done DEPRESSION ASSESSMENT Never done HPI Eliana Guillen is a 27 year old female. PMH significant for ACTIVE PROBLEM LIST History of Urinary Tract Infection Chronic Interstitial Cystitis With Hematuria Abnormal Uterine Bleeding Pelvic and Perineal Pain No prior CC visits. Presents today to establish care with Elkin Lin MD Chart review shows she would like FMLA papers completed for headache. Appointment request is for bladder concerns and mental stability. Previous PCP: [facility] last seen one year ago. ER/Hospitalization: [facility] 2019. September 06, 2022 [facility] Outside records: care everywhere, [facility]. [facility] ED visit 2019 4 abdominal pain dysuria and nausea. AUDITING CLERK: Cary Jackson MD [facility] Seen by Emma Schilling MD at [facility] for report of incontinence and blood clots April 05, 2022. Noted recurrent UTIs. She noted mixed urinary incontinence and nocturia. Irregular bleeding. Provided with OC patch per her preference. Follow-up visit in August noted chronic bladder pain UTI urge incontinence nocturia frequent micturition and other specified disorders of the bladder. Treated with Bactrim. Underwent cystoscopy September 06, 2022. Noted to have chronic and eosinophilic cystitis. She states Dr. Schilling referred her to an alternate urologist Joseph Poe CNP/ Dr Hurtado Referred to urology for repeat cystoscopy then possible bladder resection. Christo CHAC[facility] if surgery is needed Prior history of behavioral health: record review shows anxiety and depression. Treatment: states did not take citalopram previously ordered, tries to not take chronic medications. States citalopram in the past did not help. Counseling: [facility]. States she endorse treatment for PTSD with medication. If unable to take medications states she recommended yoga/meditation. Headaches reports QOD to QD for two years or more, states did not disucss with previous PCP. .States no aggravating cause. Wakes with headache or can occur during the day. States no known trigger. Application cold and Excedrin can help. States can be all day. Notes nausea associated. States achey sharp or dull. Located in neck and right or left side of head. Can feel pain in eye, ear. States ibuprofen does not help. . States aura, described as little dots prior to headache. Notes can feel dizzy with headache. Says vision pulsates , explained as difficult to read when aura is present. Not sure if neck pain starts first. Review of Systems Constitutional: Negative. Neurological: Positive for headaches. Psychiatric/Behavioral: Positive for dysphoric mood. The patient is nervous/anxious. Objective BP 112/70 Pulse 88 Resp 16 Ht 157.5 cm (5' 2 ) Wt 46.7 kg (103 lb) LMP 09/08/2019 SpO2 100% BMI 18.84 kg/m? Physical Exam Vitals and nursing note reviewed. Constitutional: Appearance: Normal appearance. HENT: Head: Normocephalic and atraumatic. Eyes: General: Lids are normal. Conjunctiva/sclera: Conjunctivae normal. Pupils: Pupils are equal, round, and reactive to light. Neck: Thyroid: No thyromegaly. Vascular: Normal carotid pulses. No JVD. Comments: TTP upper cervical /lower occipital area Cardiovascular: Rate and Rhythm: Normal rate and regular rhythm. Pulses: Carotid pulses are 2+ on the right side and 2+ on the left side. Radial pulses are 2+ on the right side and 2+ on the left side. Heart sounds: Normal heart sounds. Pulmonary: Effort: Pulmonary effort is normal. Breath sounds: Normal breath sounds. Abdominal: General: Bowel sounds are normal. Palpations: Abdomen is soft. Musculoskeletal: Right lower leg: No edema. Left lower leg: No edema. Skin: General: Skin is warm and dry. Neurological: Mental Status: She is alert. ALLERGIES Allergen Reactions Bee Sting Hives, Swelling Bees Swelling, Shortness of Breath Medication cephALEXin (KEFLEX) 250 mg capsule TAKE 1 CAPSULE BY MOUTH EVERY DAY AT BEDTIME vibegron (GEMTESA) 75 mg tablet citalopram (CELEXA) 20 mg tablet Take 1 tablet by mouth once daily. PAST MEDICAL HISTORY Diagnosis Date History of headache Interstitial cystitis PTSD (post-traumatic stress disorder) Recurrent UTI (urinary tract infection) Social History Tobacco Use Smoking status: Every Day Packs/day: 0.50 Years: 5.00 Pack years: 2.50 Types: Cigarettes Smokeless tobacco: Never Vaping Use Vaping Use: Some days Substance Use Topics Alcohol use: No Drug use: No Comment: history narcotic abuse years ago Depression Screening 11/06/2022 PHQ-2 S (more content not included)... [facility] 11-08-2022 Instructions Marilia Rosales APRN.CNS - 11/08/2022 9:40 AM EDT Take naproxen 2 times daily with meals for the next 2 to 3 days. Then take as needed at the first sign of headache or aura Try sertraline once daily for PTSD. documented in this encounter [facility] 11-08-2022 History of Presen t illness Narrative SUBJECTIVE: COVID-19 VACCINE(1) Never done PNEUMOCOCCAL(1 - PCV) Never done HPV VACCINE(1 - 2-dose series) Never done PAP TESTING Never done DEPRESSION ASSESSMENT Never done HPI Eliana Guillen is a 27 year old female. PMH significant for ACTIVE PROBLEM LIST History of Urinary Tract Infection Chronic Interstitial Cystitis With Hematuria Abnormal Uterine Bleeding Pelvic and Perineal Pain No prior CC visits. Presents today to establish care with Elkin Lin MD Chart review shows she would like FMLA papers completed for headache. Appointment request is for bladder concerns and mental stability. [facility]CP: [facility] last seen one year ago. ER/Hospitalization: [facility] 2019. September 06, 2022 [facility] Outside records: care everywhere, [facility]. [facility] visit 2019 4 abdominal pain dysuria and nausea. AUDITING CLERK: Cary Jackson MD [facility] Seen by Emma Schilling MD at [facility] for report of incontinence and blood clots April 05, 2022. Noted recurrent UTIs. She noted mixed urinary incontinence and nocturia. Irregular bleeding. Provided with OC patch per her preference. Follow-up visit in August noted chronic bladder pain UTI urge incontinence nocturia frequent micturition and other specified disorders of the bladder. Treated with Bactrim. Underwent cystoscopy September 06, 2022. Noted to have chronic and eosinophilic cystitis. She states Dr. Schilling referred her to an alternate urologist Joseph Poe CNP/ Dr Hurtado Referred to urology for repeat cystoscopy then possible bladder resection. Christo Berger [place] if surgery is needed Prior history of behavioral health: record review shows anxiety and depression. Treatment: states did not take citalopram previously ordered, tries to not take chronic medications. States citalopram in the past did not help. Counseling: [facility] Henderson. States she endorse treatment for PTSD with medication. If unable to take medications states she recommended yoga/meditation. Headaches reports QOD to QD for two years or more, states did not disucss with previous PCP. .States no aggravating cause. Wakes with headache or can occur during the day. States no known trigger. Application cold and Excedrin can help. States can be all day. Notes nausea associated. States achey sharp or dull. Located in neck and right or left side of head. Can feel pain in eye, ear. States ibuprofen does not help. . States aura, described as little dots prior to headache. Notes can feel dizzy with headache. Says vision pulsates , explained as difficult to read when aura is present. Not sure if neck pain starts first. Review of Systems Constitutional: Negative. Neurological: Positive for headaches. Psychiatric/Behavioral: Positive for dysphoric mood. The patient is nervous/anxious. Objective BP 112/70 Pulse 88 Resp 16 Ht 157.5 cm (5' 2 ) Wt 46.7 kg (103 lb) LMP 09/08/2019 SpO2 100% BMI 18.84 kg/m Physical Exam Vitals and nursing note reviewed. Constitutional: Appearance: Normal appearance. HENT: Head: Normocephalic and atraumatic. Eyes: General: Lids are normal. Conjunctiva/sclera: Conjunctivae normal. Pupils: Pupils are equal, round, and reactive to light. Neck: Thyroid: No thyromegaly. Vascular: Normal carotid pulses. No JVD. Comments: TTP upper cervical /lower occipital area Cardiovascular: Rate and Rhythm: Normal rate and regular rhythm. Pulses: Carotid pulses are 2+ on the right side and 2+ on the left side. Radial pulses are 2+ on the right side and 2+ on the left side. Heart sounds: Normal heart sounds. Pulmonary: Effort: Pulmonary effort is normal. Breath sounds: Normal breath sounds. Abdominal: General: Bowel sounds are normal. Palpations: Abdomen is soft. Musculoskeletal: Right lower leg: No edema. Left lower leg: No edema. Skin: General: Skin is warm and dry. Neurological: Mental Status: She is alert. ALLERGIES Allergen Reactions Bee Sting Hives, Swelling Bees Swelling, Shortness of Breath Medication cephALEXin (KEFLEX) 250 mg capsule TAKE 1 CAPSULE BY MOUTH EVERY DAY AT BEDTIME vibegron (GEMTESA) 75 mg tablet citalopram (CELEXA) 20 mg tablet Take 1 tablet by mouth once daily. PAST MEDICAL HISTORY Diagnosis Date History of headache Interstitial cystitis PTSD (post-traumatic stress disorder) Recurrent UTI (urinary tract infection) Social History Tobacco Use Smoking status: Every Day Packs/day: 0.50 Years: 5.00 Pack years: 2.50 Types: Cigarettes Smokeless tobacco: Never Vaping Use Vaping Use: Some days Substance Use Topics Alcohol use: No Drug use: No Comment: history narcotic abuse years ago Depression Screening 11/06/2022 PHQ-2 Score 5 PHQ-9 Score 19 Depression screening tool completed and reviewed. Based on score and interview, patient is already diagnosed with depression. Screening tool discussed with patient, and I recommended starting medication. ASSESSMENT/PLAN: 1. History of headache - ICD9: V13.89, ICD10: Z87.898 (primary diagnosis) She reports history of headache x2 years, has not previously reported PCP. Unclear if or tension type headache versus migraine. We will treat with Toradol in office today. Reports missed work on November 03 2022 due to headache. Take naproxen 2 times daily with meals for the next 2 to 3 days. Then take as needed at the first sign of headache or aura Zofran prn nausea Would like FMLA form completed for November 03 missing work. 2. PTSD (post-traumatic stress disorder) - ICD9: 309.81, ICD10: F43.10 Try sertraline once daily for PTSD. - SERTRALINE 25 MG TABLET 3. Acute nonintractable headache, unspecified headache type - ICD9: 784.0, ICD10: R51.9 - KETOROLAC 60 MG/2 ML INTRAMUSCULAR SOLUTION - in office today 4. Interstitial cystitis - ICD9: 595.1, ICD10: N30.10 Review of outside records shows that she was seen by urogynecologist at [facility] and underwent cystoscopy. She reports has been referred to another urologist for possible resection. She states that the urologist wants to repeat cystoscopy to determine if surgery is needed. 1 mo recheck Marilia Rosales APRN.APARTMENT ASSISTANT MANAGER headache, PTSD 6 mo follow up Elkin Lin MD - establish Marilia Rosales APRN.APARTMENT ASSISTANT MANAGER Medical Decision Making: Problems: Moderate: 2+ stable chronic illnesses Risk: Moderate: Drug management Medical Decision Making Level: 4 - Moderate documented in this encounter [facility] 11-06-2022 Miscellaneous Notes FMLA paperwork has been received and at nurse's desk for appointment on 11/08/22 Patient called to report that Ashlee will be faxing FMLA paper work prior to the patient's appointment on 11/08/22. documented in this encounter [facility] Anesthesiology Consult note CATALINA GUPTA MD: PERFORM, SIGN, VERIFY Event Display: Anesthesiology Consultation Authored Date: Patient: ELIANA GUILLEN Age: 28 years Sex: Female : 1995 Associated Diagnoses: None Author: CATALINA GUPTA MD Postoperative Information Post Operative Info: Post op day: Post Anesthesia Care Unit. Patient location: PACU. Assessment Postanesthesia assessment Vitals: Vital signs from flowsheet : Vital Signs 03/26/2023 12:47 EDT Heart Rate Monitored 81 bpm Respiratory Rate 16 br/min Systolic Blood Pressure Non-Invasive 108 mmHg Diastolic Blood Pressure Non-Invasive 69 mmHg Mean Arterial Pressure (NBP) 79 mmHg 03/26/2023 12:42 EDT Heart Rate Monitored 81 bpm Respiratory Rate 16 br/min Systolic Blood Pressure Non-Invasive 120 mmHg Diastolic Blood Pressure Non-Invasive 79 mmHg Mean Arterial Pressure (NBP) 91 mmHg 03/26/2023 12:27 EDT Heart Rate Monitored 71 bpm Respiratory Rate 14 br/min Systolic Blood Pressure Non-Invasive 111 mmHg Diastolic Blood Pressure Non-Invasive 100 mmHg >HHI Mean Arterial Pressure (NBP) 105 mmHg 03/26/2023 12:12 EDT Temperature Temporal Artery 36.0 DegC Heart Rate Monitored 59 bpm LOW Respiratory Rate 10 br/min <LLOW Systolic Blood Pressure Non-Invasive 99 mmHg Diastolic Blood Pressure Non-Invasive 66 mmHg Mean Arterial Pressure (NBP) 77 mmHg 03/26/2023 12:06 EDT Systolic Blood Pressure Non-Invasive 96 mmHg mmHg Diastolic Blood Pressure Non-Invasive 63 mmHg mmHg 03/26/2023 12:05 EDT Heart Rate Monitored 61 bpm bpm Respiratory Rate - Anes 0 br/min br/min 03/26/2023 12:03 EDT Systolic Blood Pressure Non-Invasive 98 mmHg mmHg Diastolic Blood Pressure Non-Invasive 59 mmHg mmHg 03/26/2023 12:00 EDT Heart Rate Monitored 75 bpm bpm Respiratory Rate - Anes 11 br/min br/min Systolic Blood Pressure Non-Invasive 99 mmHg mmHg Diastolic Blood Pressure Non-Invasive 51 mmHg mmHg 03/26/2023 11:57 EDT Systolic Blood Pressure Non-Invasive 131 mmHg mmHg Diastolic Blood Pressure Non-Invasive 74 mmHg mmHg 03/26/2023 11:55 EDT Temperature (Route Not Specified) 34.64 DegC DegC Heart Rate Monitored 88 bpm bpm Respiratory Rate - Anes 16 br/min br/min 03/26/2023 11:54 EDT Systolic Blood Pressure Non-Invasive 124 mmHg mmHg Diastolic Blood Pressure Non-Invasive 75 mmHg mmHg 03/26/2023 11:51 EDT Systolic Blood Pressure Non-Invasive 119 mmHg mmHg Diastolic Blood Pressure Non-Invasive 79 mmHg mmHg 03/26/2023 11:50 EDT Temperature (Route Not Specified) 34.95 DegC DegC Heart Rate Monitored 117 bpm bpm Respiratory Rate - Anes 15 br/min br/min 03/26/2023 11:48 EDT Systolic Blood Pressure Non-Invasive 112 mmHg mmHg Diastolic Blood Pressure Non-Invasive 60 mmHg mmHg 03/26/2023 11:45 EDT Temperature (Route Not Specified) 35.43 DegC DegC Heart Rate Monitored 53 bpm bpm Respiratory Rate - Anes 7 br/min br/min Systolic Blood Pressure Non-Invasive 93 mmHg mmHg Diastolic Blood Pressure Non-Invasive 48 mmHg mmHg 03/26/2023 11:41 EDT Systolic Blood Pressure Non-Invasive 81 mmHg mmHg Diastolic Blood Pressure Non-Invasive 47 mmHg mmHg 03/26/2023 11:40 EDT Temperature (Route Not Specified) 35.57 DegC DegC Heart Rate Monitored 78 bpm bpm Respiratory Rate - Anes 13 br/min br/min 03/26/2023 11:36 EDT Systolic Blood Pressure Non-Invasive 104 mmHg mmHg Diastolic Blood Pressure Non-Invasive 55 mmHg mmHg 03/26/2023 11:35 EDT Heart Rate Monitored 77 bpm bpm Respiratory Rate - Anes 0 br/min br/min 03/26/2023 11:30 EDT Respiratory Rate - Anes 0 br/min br/min Systolic Blood Pressure Non-Invasive 108 mmHg mmHg Diastolic Blood Pressure Non-Invasive 77 mmHg mmHg 03/26/2023 9:38 EDT Temperature Temporal Artery 36.7 DegC Peripheral Pulse Rate 66 bpm Respiratory Rate 18 br/min Systolic Blood Pressure Non-Invasive 108 mmHg Diastolic Blood Pressure Non-Invasive 77 mmHg . Mental status: at preoperative baseline. Respiratory function: respirations are non-labored, stable. Respiratory support: none. CV function: stable. Cardiovascular support: none. Pain: satisfactory. Nausea status: satisfactory. Postoperative hydration status: within normal limits. Notes: Patient is sufficiently recovered from anesthesia to participate in the evaluation. No follow-up care needed. No complications post-anesthesia.. Digitally Signed by CATALINA GUPTA MD on 03/26/2023 01:08 PM [facility] Evaluation + Plan note No data available for this section [facility] Evaluation + Plan note Future Appointments Appointment Date:03/13/2023 10:00:00 AM Scheduled Provider:JOSEPH POE Location:UROLOGY Appointment Type:URO OV Physical 20 min Appointment Date:03/26/2023 09:10:00 AM Scheduled Provider: Location:Main OR Appointment Type:Surgery - [facility] Appointment Date:04/10/2023 11:00:00 AM Scheduled Provider:JJ VELÁZQUEZ MD Location:UROLOGY Appointment Type:URO OV Post Op Future Scheduled TestsBasic Metabolic Panel 01/16/23Complete Blood Count 01/16/23 [facility] Evaluation + Plan note Future Appointments Appointment Date:03/13/2023 10:00:00 AM Scheduled Provider:JOSEPH POE Location:UROLOGY Appointment Type:URO OV Physical 20 min Appointment Date:03/26/2023 10:20:00 AM Scheduled Provider: Location:Main OR Appointment Type:Surgery [facility] Appointment Date:04/10/2023 11:00:00 AM Scheduled Provider:JJ VELÁZQUEZ MD Location:UROLOGY Appointment Type:URO OV Post Op Future Scheduled TestsPathology Non-Electro Mechanical Designer Request 03/06/23Basic Metabolic Panel 01/16/23Complete Blood Count 01/16/23 [facility] Evaluation + Plan note Future Appointments Appointment Date:03/26/2023 10:20:00 AM Scheduled Provider: Location:Main OR Appointment Type:[facility] Urology Appointment Date:04/10/2023 11:10:00 AM Scheduled Provider:JJ VELÁZQUEZ MD Location:UROLOGY Appointment Type:URO OV Post Op [facility] Evaluation + Plan note Future Appointments Appointment Date:04/10/2023 11:10:00 AM Scheduled Provider:JJ VELÁZQUEZ MD Location:UROLOGY Appointment Type:URO OV Post Op [facility] Diagnosis Treatment not available- Primary Procedure not carried out for other reasons documented in this encounter [facility] note* Diagnosis Procedure and treatment not carried out for other reasons- Primary documented in this encounter [facility] note* Diagnosis Migraine with aura and without status migrainosus, not intractable- Primary Migraine with aura, without mention of intractable migraine without mention of status migrainosus Chronic daily headache Headache PTSD (post-traumatic stress disorder) Posttraumatic stress disorder Interstitial cystitis Chronic interstitial cystitis Eosinophilic cystitis Other specified types of cystitis documented in this encounter [facility] note* Diagnosis Migraine with aura and without status migrainosus, not intractable- Primary Migraine with aura, without mention of intractable migraine without mention of status migrainosus Chronic daily headache Headache documented in this encounter [facility] note* Diagnosis Acute cystitis with hematuria- Primary Acute cystitis documented in this encounter [facility] note* Diagnosis Chronic daily headache- Primary Headache documented in this encounter [facility] note* Diagnosis Muscle spasm- Primary Spasm of muscle Migraine with aura and without status migrainosus, not intractable Migraine with aura, without mention of intractable migraine without mention of status migrainosus Chronic daily headache Headache documented in this encounter [facility] Discharge instructions No data available for this section [facility] Progress note No data available for this section [facility] Summary Purpose Family History No Family History Records FoundNo Family History Records Found No data available for this section No data available for this section No data available for this section No Family History Records FoundNo Family History Records Found Advance Directives No Advanced Directives Records FoundNo Advanced Directives Records FoundNo Advanced Directives Records FoundNo Advanced Directives Records Found Medications Administered Section Inactive Administered Medications - up to 3 most recent administrations Medication Order MAR Action Action Date Dose Rate Site keTORolac 60 mg injection (Toradol) 60 mg, INTRAMUSCULAR, ONCE, 1 dose, On Tiarra 11/08/22 at 1000, Ketorolac (Toradol) is indicated for the short-term (up to 5 days) management of moderately severe acute pain. Continuation of ketorolac (Toradol) beyond 5 days increases the risk of developing serious adverse events. Please verify the duration of therapy for ketorolac (Toradol)., If ordered PRN for pain, patient/guardian may elect to receive this medication for higher pain levels INSTEAD of the opioid, if preferred: Yes Given 11/08/2022 10:10 AM EDT 60 mg Buttocks, Left Reason for Referral Specialty Diagnoses / Procedures Referred By Hung vazquez Referred To Contact Neurology Diagnoses Migraine with aura and without status migrainosus, not intractable Chronic daily headache Procedures CONSULT TO NEUROLOGY OFFICE/OUTPATIENT [facility] 60-74 MINUTES Elkin Lin MD [address] [place] [address] Referral ID Status Reason Start Date Expiration Date Visits Requested Visits Authorized [id number] Authorized PCP Requested Referral 01/01/2023 01/01/2024 1 1 Additional Source Comments INFORMATION SOURCE (unrecogn ized section and content) DATE CREATED AUTHOR AUTHOR'S ORGANIZ ATION 01/30/2023 [facility] DATE CREATED AUTHOR AUTHOR'S ORGANIZ ATION 04/01/2023 [facility] DATE CREATED AUTHOR AUTHOR'S ORGANIZ ATION 04/29/2023 [facility] Patient Care team informatio n (unrecognized section and content) Proof Sorter Relationship Specialty Start Date End Date Elkin Lin MD [facility] [place] [address] PCP - General Internal Medicine 11/08/22 Proof Sorter Relationship Specialty Start Date End Date Elkin Lin MD [address] [place] [id number] PCP - General Internal Medicine 11/08/22 Proof Sorter Relationship Specialty Start Date End Date Elkin Lin MD [facility] [place] [address] PCP - General Internal Medicine 11/08/22 Proof Sorter Relationship Specialty Start Date End Date Elkin Lin MD [facility] [place] [address] PCP - General Internal Medicine 11/08/22 Proof Sorter Relationship Specialty Start Date End Date Elkin Lin MD [address] [place] [id number] PCP - General Internal Medicine 11/08/22 Proof Sorter Relationship Specialty Start Date End Date Elkin Lin MD [address] [place] [id number] PCP - General Internal Medicine 11/08/22 Proof Sorter Relationship Specialty Start Date End Date Elkin Lin MD [address] [place] [address] PCP - General Internal Medicine 11/08/22 Proof Sorter Relationship Specialty Start Date End Date Elkin Lin MD [address] [place], [place] [id number] PCP - General Internal Medicine 11/08/22 Proof Sorter Relationship Specialty Start Date End Date Elkin Lin MD [address] [place], [place] [address] PCP - General Internal Medicine 11/08/22 Proof Sorter Relationship Specialty Start Date End Date Elkin Lin MD [address] [place] [address] PCP - General Internal Medicine 11/08/22 Proof Sorter Relationship Specialty Start Date End Date Elkin Lin MD [address] [place], [place] [address] PCP - General Internal Medicine 11/08/22 Source Comments (unrecognize d section and content) In the event this informatio n is protected by the Federal Confidentiality of Alcohol and Drug Abuse Patient Records regulations: The Federal rules restrict any use of the information to criminally investigate or prosecute any alcohol or drug abuse patient.[facility] the event this information is protected by the Federal Confidentiality of Alcohol and Drug Abuse Patient Records regulations: The Federal rules restrict any use of the information to criminally investigate or prosecute any alcohol or drug abuse patient.[facility] the event this information is protected by the Federal Confidentiality of Alcohol and Drug Abuse Patient Records regulations: The Federal rules restrict any use of the information to criminally investigate or prosecute any alcohol or drug abuse patient.[facility] the event this information is protected by the Federal Confidentiality of Alcohol and Drug Abuse Patient Records regulations: The Federal rules restrict any use of the information to criminally investigate or prosecute any alcohol or drug abuse patient.[facility] the event this information is protected by the Federal Confidentiality of Alcohol and Drug Abuse Patient Records regulations: The Federal rules restrict any use of the information to criminally investigate or prosecute any alcohol or drug abuse patient.[facility] the event this information is protected by the Federal Confidentiality of Alcohol and Drug Abuse Patient Records regulations: The Federal rules restrict any use of the information to criminally investigate or prosecute any alcohol or drug abuse patient.[facility] the event this information is protected by the Federal Confidentiality of Alcohol and Drug Abuse Patient Records regulations: The Federal rules restrict any use of the information to criminally investigate or prosecute any alcohol or drug abuse patient.[facility] the event this information is protected by the Federal Confidentiality of Alcohol and Drug Abuse Patient Records regulations: The Federal rules restrict any use of the information to criminally investigate or prosecute any alcohol or drug abuse patient.[facility] the event this information is protected by the Federal Confidentiality of Alcohol and Drug Abuse Patient Records regulations: The Federal rules restrict any use of the information to criminally investigate or prosecute any alcohol or drug abuse patient.[facility] the event this information is protected by the Federal Confidentiality of Alcohol and Drug Abuse Patient Records regulations: The Federal rules restrict any use of the information to criminally investigate or prosecute any alcohol or drug abuse patient.[facility] the event this information is protected by the Federal Confidentiality of Alcohol and Drug Abuse Patient Records regulations: The Federal rules restrict any use of the information to criminally investigate or prosecute any alcohol or drug abuse patient.[facility] the event this information is protected by the Federal Confidentiality of Alcohol and Drug Abuse Patient Records regulations: The Federal rules restrict any use of the information to criminally investigate or prosecute any alcohol or drug abuse patient.[facility] Hospital[facility] the event this information is protected by the Federal Confidentiality of Alcohol and Drug Abuse Patient Records regulations: The Federal rules restrict any use of the information to criminally investigate or prosecute any alcohol or drug abuse patient.[facility] Hospital[facility] the event this information is protected by the Federal Confidentiality of Alcohol and Drug Abuse Patient Records regulations: The Federal rules restrict any use of the information to criminally investigate or prosecute any alcohol or drug abuse patient.[facility] Hospital[facility] the event this information is protected by the Federal Confidentiality of Alcohol and Drug Abuse Patient Records regulations: The Federal rules restrict any use of the information to criminally investigate or prosecute any alcohol or drug abuse patient.[facility] HospitalIn the event this information is protected by the Federal Confidentiality of Alcohol and Drug Abuse Patient Records regulations: The Federal rules restrict any use of the information to criminally investigate or prosecute any alcohol or drug abuse patient.[facility] HospitalIn the event this information is protected by the Federal Confidentiality of Alcohol and Drug Abuse Patient Records regulations: The Federal rules restrict any use of the information to criminally investigate or prosecute any alcohol or drug abuse patient.[facility] HospitalIn the event this information is protected by the Federal Confidentiality of Alcohol and Drug Abuse Patient Records regulations: The Federal rules restrict any use of the information to criminally investigate or prosecute any alcohol or drug abuse patient.[facility] HospitalIn the event this information is protected by the Federal Confidentiality of Alcohol and Drug Abuse Patient Records regulations: The Federal rules restrict any use of the information to criminally investigate or prosecute any alcohol or drug abuse patient.[facility] HospitalIn the event this information is protected by the Federal Confidentiality of Alcohol and Drug Abuse Patient Records regulations: The Federal rules restrict any use of the information to criminally investigate or prosecute any alcohol or drug abuse patient.[facility] Reason for Visit (unrecogniz ed section and content) Reason Comments Establish Care Reason Comments bladder problems Reason Comments Appointment Cancelled Reason Comments F/U 6 months Reason Comments Disability and leave forms from Ashlee Reason Onset Date Comments Refill Request 01/24/2023 Reason Comments [facility] ER update Results Reason Comments FMLA Forms Reason Comments Consult Migraine Specialty Diagnoses / Procedures Referred By Contac t Referred To Contact Neurology Diagnoses Migraine with aura and without status migrainosus, not intractable Chronic daily headache Procedures CONSULT TO NEUROLOGY OFFICE/OUTPATIENT [facility] 60-74 MINUTES Elkin Lin MD [address] [place] [address] Referral ID Status Reason Start Date Expiration Date V isits Requested Visits Authorized [id number] Closed PCP Requested Referral 01/01/2023 01/01/2024 1 1 Reason Comments Medication Problem amitriptyline (ELAVI L) 10 mg tablet Reason Comments ED Follow-up [facility] ED follow up fro m 01/26/2023 Reason Onset Date Comments Refill Request 02/28/2023 Reason Onset Date Comments Refill Request 03/24/2023 Reason Comments Migraine with aura and without status mi grainosus, not intr Reason Comments Medication Question Reason Comments Follow Up Reason Onset Date Comments Refill Request 07/10/2023 FOR RECORDS PERTAINING TO PATIENTS WHO ARE OR HAVE BEEN ENROLLED IN A CHEMICAL DEPENDENCY/SUBSTANCEABUSE PROGRAM, SOME INFORMATION MAY BE OMITTED. This clinical summary was aggregated from multiple sources. Caution should be exercised in using it in the provision of clinical care. This summary normalizes information from multiple sources, and as a consequence, information in this document may materially change the coding, format and clinical context of patient data. In addition, data may be omitted in some cases. CLINICAL DECISIONS SHOULD BE BASED ON THE PRIMARY CLINICAL RECORDS. [facility] [employer] provides no warranty or guarantee of the accuracy or completeness of information in this document.
[2023-09-26] MEDS: Lactated Ringers 1,000 ML 15 ML IV (07:00)
[2023-09-26 07:01] VITALS: BP 115/78; PULSE 86; RESP 18; TEMP 36.4; O2SAT 100; BMI 18.4
[2023-09-26 07:06] LABS: Internal QC Validated? YES +Cl - CLEAR BKGD; Pregnancy, Urine Negative Negative
--- NOTE | 2023-09-26 07:29 | DCINST_ITS ---
Discharge Instructions Diet Discharge Diet: No restrictions Activity Discharge Activity: Return to Normal Activity Dressing / Incision Call your doctor if you observe: Fever of 101 or Higher, Inability to urinate and Inability to have a bowel movement Follow Up Care Please Follow Up With: Geneva Schilling MD When: the office will call her to make follow up arrangements for next week Test Results: Test results from this visit will be discussed in further detail at your follow- up appointment, if applicable. Discharge Plan Admission Attending Provider: Geneva Schilling Primary Care Provider: Francia Lin Discharge Orders/Prescriptions Prescriptions: New oxycodone-acetaminophen [Percocet] 5-325 mg tablet 1 tab PO Q8H PRN (Reason: pain) 3 Days Qty: 9 0RF sulfamethoxazole-trimethoprim [sulfamethoxazole-trimethoprim] 800-160 mg tablet 1 tab PO BID 3 Days Qty: 6 0RF Continued Excedrin Migraine 250-250-65 mg Tablet 1 tab PO Q6H PRN (Reason: Migraine Headache) Myrbetriq 25 mg tablet extended release 24 hr 50 mg PO QHS cephalexin 250 mg capsule 250 mg PO QHS cyclobenzaprine 5 mg tablet 5 mg PO TID PRN oxycodone-acetaminophen 5-325 mg tablet 1 tab PO Q6H PRN (Reason: pain) d-mannose 500 mg capsule 1,000 mg PO DAILY Probiotic Acidophilus 250 million cell capsule 500 mmu cells PO DAILY Nexplanon 68 mg implant 1 implant subdermal DAILY Referrals / Follow Up: Francia Lin MD [Primary Care Provider] - Disposition Disposition (needs filled in before D/C Order can be placed): Home, Self Care
--- NOTE | 2023-09-26 07:32 | PCM.OPRPT ---
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 She presents for repeat cystoscopy with management for her ulcerations and biopsy of the trigone area consistent with squamous metaplasia. Informed consent was obtained. The patient was taken the operating room and placed on the operating room table. Anesthesia monitored the head, neck, airway, IV access and vital signs throughout the case. Once anesthesia was appropriately administered, the patient was placed into dorsolithotomy position was prepped and draped in usual sterile fashion. The cystoscope was inserted through the urethra under direct visualization into the urinary bladder. The area of the trigone had tissue transformation consistent with squamous metaplasia and 2 biopsies were taken of this area and were fulgurated. There were no mass lesions identified at this time. The areas of ulceration were located 1 on each lateral wall approximately 1 cm in diameter each. These were consistent with previous biopsy sites as well. These areas were fulgurated for tissue treatment. Overall, this is the best I have seen her bladder mucosa and appearance since I have been treating her. The patient's bladder was then emptied and the cystoscope was removed. She was awakened and taken to the recovery room in good condition. There were no complications during this procedure. Grafts/Implants Used: none Complications none Admit VTE Documentation VTE Present on Admission: Yes VTE Mechan Device Prophylaxis: SCD's VTE Pharm Prophylaxis ordered?: No Reason prophylaxis not ordered:: Treatment Not Indicated
[2023-09-26] MEDS: Cefazolin 2 GM in 0.9% Normal Saline (100mL Bag) 100 ML IV (08:18)
--- NOTE | 2023-09-26 08:20 | BLA_PTH ---
PATHOLOGY RESULTS PATIENT: ELIANA GUILLEN [place] [facility] [place][id number] AGE/SX: 28/F ROOM: RE09/26/[address]: Dr. Geneva Schilling MD : [id number] BED: DIS: 09/26/2023 SPEC #: [id number] RECD: 09/26/23 10:45 STATUS: JERAMY ABY #: [id number] GRISEL: 09/26/23 08:[address]: Geneva Schilling DEPT: SURGICAL PATHOLOGY RECD BY: Noa Vick ENTERED: 09/26/23 10:45 SP TYPE: BLADDER BX OTHR DR: Dr. Francia Lin MD Tissues: Urinary bladder, NOS Procedures: Surgery Specimen Level IV HEADER OPERATION: Cysto, biopsy, fulguration, bladder PRE-OP DIAGNOSIS: Interstitial cystitis, urinary tract infections TISSUE SUBMITTED: Bladder biopsy MICROSCOPIC DIAGNOSIS Urinary bladder, biopsy: Minimal chronic inflammation. No evidence of malignancy. AM:andrew 09/27/2023 MICROSCOPIC DESCRIPTION Slides are reviewed. GROSS DESCRIPTION Received in fixative is one container labeled with the patient's name and designated bladder biopsy. The specimen consists of two irregular fragments of light [place] soft tissue that in aggregate measure 0.4 x 0.2 x 0.1 cm. The specimen is totally submitted in one cassette. / SJ:andrew 09/26/2023 TC:3 CPT: 27736
[2023-09-26 08:50] VITALS: BP 109/62; BP 115/78; PULSE 90; RESP 16; TEMP 36.3; O2SAT 92
[2023-09-26 08:55] VITALS: BP 104/64; BP 115/78; PULSE 90; RESP 16; O2SAT 94
[2023-09-26 09:00] VITALS: BP 103/71; BP 115/78; PULSE 87; RESP 16; O2SAT 98
[2023-09-26 09:10] VITALS: BP 105/92; BP 115/78; PULSE 84; RESP 16; TEMP 36.5; O2SAT 100
[2023-09-26 09:57] VITALS: BP 115/78; BP 120/78; PULSE 79; RESP 16; TEMP 36.3; O2SAT 100
== END 2023-09-26 10:03 | disposition home or self-care (01) ==
LOC: SDC 06:33 → AC 06:35
PROVIDERS: Anesthesiology; PCP Internal Medicine; Referring Provider Urology; Visit Provider Urology
PROC: 0TBB8ZX Excision of Bladder, Via Natural or Artificial Opening Endoscopic, Diagnostic (ICD-10-PCS; CPT 52234; principal; 2023-09-26 08:10)
DX: N30.10 Interstitial cystitis (chronic) without hematuria (principal); F17.200 Nicotine dependence, unspecified, uncomplicated; N39.41 Urge incontinence; R35.1 Nocturia; R35.0 Frequency of micturition; N32.89 Other specified disorders of bladder; K21.9 Gastro-esophageal reflux disease without esophagitis
CPT/HCPCS: 52234; 52204; 00912; 81025; 88305; J7120; J2405

== ENCOUNTER → 2024-05-06 | Outpatient (CLI) | payer MEDICAID, SELFPAY ==
--- NOTE | 2024-05-06 14:18 | CT_ITS ---
STUDY: CT ABDOMEN AND PELVIS WITH AND WITHOUT CONTRAST REASON FOR EXAM: Female, 29 years old. GROSS HEMATURIA RADIATION DOSAGE (If Supplied By Facility): CTDIvol = ( 11.24 ) mGy, DLP = ( 996.69 ) mGycm TECHNIQUE: Transaxial images were obtained from the dome of the diaphragm to the symphysis pubis without oral contrast. IV 100mL Isovue-300 was administered. Sagittal and coronal images were reconstructed. Individualized dose optimization techniques were used for this CT. COMPARISON: [08/28/2023. FINDINGS: The visualized lung bases are unremarkable. The visualized portions of the heart are within normal limits. Normal liver. Normal gallbladder and extrahepatic biliary system. Normal spleen. Normal pancreas. Normal bilateral adrenal glands. Normal right kidney. Normal left kidney. Evaluation of the GI tract is limited by absence of oral contrast. Cannot exclude stomach wall thickening. No dilated loops of bowel or evidence for obstruction. Cannot exclude segmental thickening of the andino of the small or large bowel. Cannot exclude enteritis or colitis. Moderate diffuse fecal retention. No evidence for appendicitis. Normal abdominal aorta. Normal inferior vena cava. Normal retroperitoneum. Bladder has a normal contour. However there is a diffuse thickening of bladder wall consistent with possible cystitis. Correlate with urinalysis. Normal visualized uterus. Normal abdominal wall. Normal osseous structures. CT/CT Abd/Pelvis W/WO Contrast IMPRESSION: Suggestion of bladder wall thickening. Findings could be related to cystitis. No other definite acute or significant abnormality seen. Electronically Signed: Cirilo Mccabe MD at 16:04 EDT ,
== END | disposition home or self-care (01) ==
LOC: CT 14:18
PROVIDERS: PCP Internal Medicine; Referring Provider Urology; Visit Provider Urology
DX: R31.0 Gross hematuria (principal)
CPT/HCPCS: 74178; Q9967

== ENCOUNTER → 2024-06-15 | Outpatient (CLI) | payer MEDICAID, SELFPAY ==
[2024-06-15 11:15] LABS: HIV - WCH Non-Reactive (Nonreactive); Syphilis Antibodies Non-reactive
[2024-06-16 22:06] LABS: Chlamydia By Nucleic Acid AMP Negative (Negative); Gonococcus By Nucleic Acid AMP Negative (Negative)
[2024-06-22 21:07] LABS: HPV APTIMA, High Risk Negative (Negative)
[2024-06-23 09:37] LABS: HPV Reflexed? YES, CHARGE PATIENT
== END | disposition home or self-care (01) ==
LOC: BWCLAB 10:02
PROVIDERS: PCP Internal Medicine; Referring Provider Advanced Practice Midwife; Visit Provider Advanced Practice Midwife
DX: R87.612 Low grade squamous intraepithelial lesion on cytologic smear of cervix (LGSIL) (principal); Z11.3 Encounter for screening for infections with a predominantly sexual mode of transmission
CPT/HCPCS: 36415; 86695; 86696; 86703; 86780; 87491; 87591; 87624; 88175; G0145

== ENCOUNTER → 2024-06-25 | Outpatient (CLI) | payer MEDICAID, SELFPAY ==
--- NOTE | 2024-06-25 14:19 | BI_ITS ---
MAMMOGRAPHY - BILATERAL DIAGNOSTIC REASON FOR EXAM: Female, 29 years old. Right breast tenderness. PERTINENT HISTORY: Grandmother with breast cancer. TECHNIQUE: Digital bilateral breast bogdan (3D mammographic acquisition) in the CC and MLO projections. 2-D mediolateral oblique (MLO) and craniocaudad (CC) views of both breasts were obtained. CAD: Full Field Digital Mammography with Computer Added Detection was performed. COMPARISON: None. Baseline examination. FINDINGS: Breast Composition: The breasts are extremely dense, which lowers the sensitivity of mammography. There are no dominant masses or suspicious calcifications. No other significant abnormalities are identified. BI/DIAG MAMM W/CAD, BILAT IMPRESSION: Negative diagnostic mammogram. With the patient''s history of right breast tenderness, targeted sonographic correlation recommended. ASSESSMENT CATEGORY: BIRADS Category 0: Incomplete. Need additional imaging evaluation. A letter regarding these results will be sent to the patient by the facility within 30 days. Approximately 10% of breast cancers are not detected by mammography. A normal mammogram should not delay biopsy of a clinically suspicious abnormality. Electronically Signed: Nas Faulkner MD at 7:51 EST ,
--- NOTE | 2024-06-25 14:19 | US_ITS ---
STUDY: ULTRASOUND BREAST - RIGHT REASON FOR EXAM: Female, 29 years old. Right breast tenderness. TECHNIQUE: Axial and longitudinal images of the RIGHT breast were performed with a high resolution ultrasound transducer. # OF IMAGES: 26 COMPARISON: Comparison is made with prior mammogram done earlier today. FINDINGS: RIGHT Breast: The lower inner quadrant of the breast was examined with ultrasound. No sonographic abnormality is seen. US/Breast Limited Unilateral IMPRESSION: No sonographic abnormality is seen. ASSESSMENT CATEGORY: BIRADS Category 1: Negative. A letter regarding these results will be sent to the patient by the facility within 30 days. Electronically Signed: Nas Faulkner MD at 15:37 EST ,
== END | disposition home or self-care (01) ==
LOC: OPBI 14:19
PROVIDERS: PCP Internal Medicine; Referring Provider Advanced Practice Midwife; Visit Provider Advanced Practice Midwife
DX: N64.4 Mastodynia (principal)
CPT/HCPCS: 77062; 76642; 77066; G0279

== ENCOUNTER → 2025-01-13 | Outpatient (CLI) | payer MEDICAID, SELFPAY ==
--- NOTE | 2025-01-13 10:14 | US_ITS ---
PROCEDURE: TRANSVAGINAL NON- 01/13/2025 REASON FOR EXAM: PELVIC PAIN TECHNIQUE: Transvaginal pelvic ultrasound COMPARISON: Prior study dated April 18, 2022. FINDINGS: Measurements: Uterus: 9.3 cm x 5.7 cm x 4.7 cm with a volume of 128.74 mL Endometrial Thickness: 6.1 mm. It is hyperechoic. Small amount of fluid is seen within the endometrial canal. Nabothian cysts. An IUD is seen within the fundal portion of the endometrium. Right Ovary: 3 cm x 2.9 cm x 2.5 cm with a volume of 10.85 mL. Left Ovary: 4.6 cm x 3.4 cm x 2.4 cm with a volume of 19.9 mL. Uterus: Normal size, myometrial echotexture, and contour.. IUD is seen within the fundal portion of the endometrium. Endometrium: Unremarkable. Right ovary: Small follicles are seen within the ovary. Left ovary: There is a 4.1 cm x 3.1 cm 2.5 cm complex cyst in the left ovary with the several daughter cysts. There is also evidence of a 6 mm x 5 mm x 6 mm echogenic nodule along its periphery. Clinical correlation and sonographic follow-up recommended. Other: US/Transvaginal Non- IMPRESSION: Complex cyst in the left ovary as described. Clinical and sonographic follow-u p recommended. Reading Location: [id number]
--- OUTSIDE RECORDS SUMMARY | 2025-01-13 20:07 | XMS RPT_ITS | CCD ---
Demographics Address [address] [place] [address] Mobile Phone Preferred Language en Marital Status Single Scientologist Affiliation Unknown Race White Ethnic Group Not or Lati no Author Organization [facility]iniSy[facility] Care Team Providers Care Chemical Production Engineer Name Role Phone Dr. Jose Feldman Primary Care Provider [phone] Dr. Jose Feldman Referring Provider [phone] Meaghan ZONE MAINTENANCE TECHNICIAN, LARRY Osei Attending Provider Care Physician, No Primary Primary Care Provider Unavailable Care Physician, No Primary Referring Provider Un available Dr. Cary Jackson Attending Provider HEATHER NIETO, EMMA Perry Primary Care Physician Unavailable Primary Care Provider UnavailElkin Arreola MD Primary Care Provider ELKIN OLIVA Primary Care Unavailable RADAMES WORTHY Referring Unavailable HAZEL NIETO, DR GRANGER Primary Care Physician JJ VELÁZQUEZ MD Attending EMMA Srivastava MD Primary Care Unavailable JOSEPH CHENG Attending DR ELKIN Salcido MD Primary Care Unavailable JOSEPH CHENG Attending DR ELKIN Salcido MD Primary Care Unavailable JOSEPH CHENG Attending DR ELKIN Salcido MD Primary Care Unavailable JJ VELÁZQUEZ MD Attending Unavailable HAZEL NIETO, DR GRANGER Primary Care Unavailable SANTANA GIORDANO MD Consulting Unavailable CATALINA GUPTA MD Consulting Unavailable JJ VELÁZQUEZ MD Attending Unavailable HAZEL NIETO, DR GRANGER Primary Care Unavailable JOSEPH CHENG Attending DR ELKIN Salcido MD Primary Care Unavailable JOSEPH CHENG Attending EMMA Wagoner MD Primary Care Unavailable Dr. Elkin Oliva Primary Care Provider [phone] Dr. Elkin Oliva Referring Provider PERFECTO Lovett Attending Provider [phone] Dr. Nohelia Munroe Attending Provider [phone] Elkin Oliva MD Primary Care Provider Rosales CONFERENCE TRANSLATOR.RADIO SURVEY WORKER, Rod Unavailable Yuliana CONFERENCE TRANSLATOR.BUILDING RENTAL SUPERINTENDENT, Kimberli Unavailable Yuliana CONFERENCE TRANSLATOR.BUILDING RENTAL SUPERINTENDENT, Kimberli Unavailable TALAMPAS, ELKIN D Primary Care Unavailable TALAMPAS, ELKIN D Attending Unavailable TALAMPJANINE, ELKIN D Primary Care Unavailable ROSALES, ROD Attending Unavailable TALAMPAS, ELKIN D Primary Care Unavailable ROSALES, ROD Referring Unavailable TALAMPAS, ELKIN D Primary Care Unavailable SELF Referring Unavailable ROSALES, ROD Attending Unavailable Yuliana CONFERENCE TRANSLATOR.BUILDING RENTAL SUPERINTENDENT, Kimberli Unavailable Dr. Elkin Oliva MD Primary Care Provider Dr. Elkin Oliav MD Referring Provider Dr. Nohelia Munroe DO Attending Provider Mahnaz Lovett CNM Attending Provider Mahnaz Lovett Referring Unavailable Talampas, Elkin D Primary Care Unavailable Mahnaz Lovett Attending Unavailable Mahnaz Lovett Referring Unavailable Mahnaz Lovett Attending Unavailable Talampas, Elkin D Primary Care Unavailable Talampas, Elkin D Referring Unavailable Talampas, Elkin D Primary Care Unavailable Nohelia Munroe Attending Unavailabl e Talampas, Elkin D Referring Unavailable Talampas, Elkin D Primary Care Unavailable Mahnaz Lovett Attending Unavailable Talampas, Elkin D Referring Unavailable Mahnaz Lovett Attending Unavailable Talampas, Elkin D Primary Care Unavailable Talampas, Elkin D Primary Care Unavailable Talampas, Elkin D Referring Unavailable Mahnaz Lovett Attending Unavailable Talampas, Elkin D Primary Care Unavailable Emma Schilling Attending Unavailable Emma Schilling Referring Unavailable Talampas, Elkin D Primary Care Unavailable Mahnaz Lovett Referring Unavailable Mahnaz Lovett Attending Unavailable Allergies Allergy Classification Reported Allergen(s) Allergy Type Date of Onset Reaction(s) Facility Amitriptyline (1 source) Amitriptyline Drug Allergy 03-07-20 23 Intolerance [facility] Work Phone: (20 sources) Bees; Translations: [BEES] Allergy to substance 09-28-19 16 Swelling, Shortness of Breath [facility] Work Phone: (20 sources) Bee Sting; Translations: [BEE STING] Allergy to substance 01-30-20 11 Hives, Swelling [facility] Work Phone: (20 sources) Amitriptyline; Translations: [amitriptyline] Drug Allergy 03-07-20 23 Dizziness (finding), Headache (finding), Clouded consciousness (finding), Intolerance [facility] Comment on above: dizziness, migraine (2 sources) Bee/Wasp/Ant venom Allergy to substance Weal (disorder), Swelling (finding), Difficulty breathing (finding) [facility] (1 source) Amitriptyline Drug Allergy 01-12-20 25 [facility] Medications Current Medications Medication Drug Class(es) Dates Sig (Normalized) Sig (Original) busPIRone hydrochloride 5 mg oral tablet (2 sources) Start: 10-19-2024 take 1 tablet by mouth three times daily busPIRone (BUSPAR) 5 mg tablet Take 5 mg by mouth three times a day. 10/19/2024 Active cephalexin 250 mg oral capsule (20 sources) Cephalosporin Antibacterial Start: 09-18-2023 take 1 capsule by mouth once daily at bedtime cephALEXin (KEFLEX) 250 mg capsule Take 1 capsule by mouth daily at bedtime. 01/06/2024 Active Start: 07-19-2023 End: 07-25-2023 take 1 capsule by mouth every six hours Cephalexin 500 mg capsule Discontinued 500 mg PO EVERY 6 HOURS July 19, 2023 1:00am July 25, 2023 2:52pm Start: 06-14-2023 End: 07-25-2023 take 1 capsule by mouth twice daily Cephalexin 500 mg capsule Discontinued 500 mg PO TWICE A DAY June 14, 2023 1:00am July 25, 2023 2:52pm Take 2 times daily until gone Start: 03-06-2023 End: 03-13-2023 cephalexin 500 mg oral capsu le Dose : 500 mg = 1 cap(s), Oral, TID, X 7 day(s), # 21 cap(s), 0 Refill(s), 03/13/23 3:41:00 PM EDT, Pharmacy: [id number], UTI symptoms, 157.5, cm, 03/06/23 15:10:00 EDT, Height, 47.3, kg, 03/06/23 15:10:00 EDT, Dosing Weight Start Date: 03/06/23 Stop Date: 03/13/23 Status: Ordered Start: 01-29-2023 End: 02-08-2023 take 1 capsule by mouth four times daily cephALEXin (KEFLEX) 500 mg capsule Take 1 capsule by mouth four times daily for 10 days. 40 capsule 0 01/29/2023 02/08/2023 Start: 01-26-2023 End: 06-14-2023 take 1 capsule by mouth every twelve hours Cephalexin 500 mg capsule Discontinued 500 mg PO EVERY 12 HOURS January 26, 2023 12:00am June 14, 2023 10:45am Start: 09-26-2022 End: 01-06-2024 take 1 capsule by mouth once daily at bedtime cephALEXin (KEFLEX) 500 mg capsule TAKE 1 CAPSULE BY MOUTH EVERY DAY AT BEDTIME 0 09/26/2022 01/06/2024 Discontinued Start: 09-26-2022 End: 11-04-2022 take 1 capsule by mouth once daily at bedtime cephALEXin (KEFLEX) 250 mg capsule TAKE 1 CAPSULE BY MOUTH EVERY DAY AT BEDTIME 0 09/26/2022 Active Start: 09-06-2022 End: 06-14-2023 take 1 capsule by mouth three times daily Cephalexin 500 mg capsule Discontinued 500 mg PO THREE TIMES A DAY September 06, 2022 1:00am June 14, 2023 10:45am Start: 07-13-2020 End: 07-18-2020 take 1 capsule by mouth every six hours Cephalexin (Keflex) 500 mg capsule Discontinued 500 mg PO EVERY 6 HOURS 22 12July 13, 2020 1:00am July 17, 2020 1:00am July 18, 2020 1:03am Start: 01-28-2020 End: 04-20-2020 take 1 capsule by mouth every twelve hours Cephalexin (Keflex) 250 mg capsule Discontinued 250 mg PO Q12H January 28, 2020 12:00am April 20, 2020 10:28am Start: 12-18-2019 End: 01-28-2020 take 1 capsule by mouth once daily Cephalexin (Keflex) 500 mg capsule Discontinued 500 mg PO daily December 18, 2019 12:00am January 28, 2020 2:49pm take daily after completing course of acute therapy Start: 12-18-2019 End: 12-25-2019 take 1 capsule by mouth three times daily Cephalexin (Keflex) 500 mg capsule Discontinued 500 mg PO THREE TIMES A DAY 22 02December 18, 2019 12:00am December 24, 2019 12:00am December 25, 2019 12:02am space evenly during waking hours Comment on above: TAKE 1 CAPSULE BY MO UT EVERY DAY AT BEDTIME Take 1 capsule by mo [facility] four times daily for 10 days. citalopram 10 mg oral tablet (6 sources) Serotonin Reuptake Inhibitor Start: 09-04-2024 End: 09-04-2025 take 1 tablet by mouth once daily Citalopram 10 mg tablet Active 10 mg PO daily October 19, 2024 12:00am Start: 12-23-2015 End: 11-08-2022 take 1 tablet by mouth once daily citalopram (CELEXA) 20 mg tablet Take 1 tablet by mouth once daily. 30 tablet 13 12/23/2015 11/08/2022 Discontinued Comment on above: Take 1 tablet by agustin once daily. cyclobenzaprine hydrochloride 5 mg oral tablet (20 sources) Muscle Relaxant Start: 09-18-19 take 1 tablet by mouth once daily at bedtime cyclobenzaprine (FLEXERIL) 5 mg tablet Take 5 mg by mouth daily at bedtime. 09/18/2023 Active Start: 09-18-2023 take 1 tablet by agustin three times daily as needed Cyclobenzaprine 5 mg tablet Active 5 mg PO 3 TIMES DAILY NEEDED September 18, 2023 1:00am Start: 01-01-2023 End: 01-06-2024 take 1 tablet by mouth every twelve hours as needed for muscle spasms and muscle spasms cyclobenzaprine (FLEXERIL) 10 mg tablet Indications: Muscle spasm Take 1 tablet by mouth two times a day as needed for muscle spasm. 30 tablet 5 01/06/2024 01/06/2024 Discontinued Start: 05-21-2017 End: 09-29-2018 take 1 tablet by mouth three times daily as needed for muscle spasms Cyclobenzaprine 10 MG tablet Discontinued 10 mg PO THREE TIMES A DAY as needed for Muscle Spasm May 21, 2017 12:00am September 29, 2018 4:22pm Comment on above: Take 1 tablet by agustin th twice daily as needed for muscle spasm. D-Mannose (2 sources) Start: 09-18-2023 take 1 capsule by mouth once daily D-Mannose 500 mg capsule Active 1000 mg PO DAILY September 18, 2023 1:00am Start: 09-18-2023 take 1000 mg by mouth once nica ly D-Mannose Active 1000 MG PO DAILY September 18, 2023 12:00am etonogestrel 68 mg drug implant (3 sources) Progestin Start: 09-18-2023 etonogestrel (NEXPLANON) subdermal implant 68 mg 68 mg by SUBDERMAL route one time only. Dr. Manuel Garcia SR. DIRECTOR PRODUCT MANAGEMENT 09/18/2023 Active lactobacillus acidophilus 1.5 mg oral capsule (2 sources) Start: 09-18-2023 Lactobacillus Acidophilus (Probiotic Acidophilus) 250 million cell capsule Active 500 NMA PO DAILY September 18, 2023 1:00am levonorgestrel 0.091165 mg/hr intrauterine system (1 source) Progestin, Progestin-containi ng Intrauterine Device Start: 01-11-2025 Levonorgestrel (Mirena) 21 mcg/24hr (up to 8 yrs) 52 mg intrauterine device Active 1 NMA INTRA-UTER ONCE January 11, 2025 12:00am as a single dose 24 hr mirabegron 50 mg extended release oral tablet (8 sources) beta3-Adrenergic Agonist Start: 11-04-2023 take 100 mg by mouth once daily MYRBETRIQ 50 mg Tb24 Take 100 mg by mouth once daily. 11/04/2023 Active Start: 09-18-2023 take 1 tablet by agustin th every twenty-four hours at bedtime Mirabegron (Myrbetriq) 25 mg tablet extended release 24 hr Active 50 mg PO AT BEDTIME September 18, 2023 1:00am nitrofurantoin, macrocrystals 25 mg / nitrofurantoin, monohydrate 75 mg oral capsule (20 sources) Nitrofuran Antibacterial Start: 06-15-2024 take 1 capsule by mouth twice daily at mealtime Nitrofurantoin Monohyd/M-Cryst (Macrobid) 100 mg capsule Active 100 mg PO TWICE A DAY June 15, 2024 1:00am must administer with a meal/food Start: 04-10-2022 End: 04-17-2022 take 1 capsule by mouth twice daily at mealtime Nitrofurantoin Monohyd/M-Cryst (Macrobid) 100 mg capsule Discontinued 100 mg PO TWICE A DAY 14 April 10, 2022 4:06pm April 16, 2022 12:00am April 17, 2022 12:04am must administer with a meal/food Start: 09-28-2021 End: 10-05-2021 take 1 capsule by mouth twice daily at mealtime Nitrofurantoin Monohyd/M-Cryst (Macrobid) 100 mg capsule Discontinued 100 mg PO TWICE A DAY 14 September 28, 2021 1:00am October 04, 2021 1:00am October 05, 2021 1:03am must administer with a meal/food Start: 11-06-2019 End: 12-18-2019 take 1 capsule by mouth twice daily at mealtime Nitrofurantoin Monohyd/M-Cryst (Macrobid) 100 mg capsule Discontinued 100 mg PO TWICE A DAY 14 November 06, 2019 12:00am December 18, 2019 2:20pm must administer with a meal/food ondansetron 4 mg disintegrating oral tablet (20 sources) Serotonin-3 Receptor Antagonist Start: 11-08-2022 take 1 tablet by mouth every six hours as needed ondansetron orally disintegrating (ZOFRAN ODT) 4 mg disintegrating tablet Take 1 tablet by mouth every 6 hours as needed for nausea/vomiting. 30 tablet 11/08/2022 Active Comment on above: Take 1 tablet by [facility] every 6 hours as needed for nausea/vomiting. oxybutynin chloride 5 mg oral tablet (6 sources) Cholinergic Muscarinic Antagonist Start: 06-14-2023 take 5 mg by mouth once daily Oxybutynin Chloride Active 5 MG PO DAILY June 14, 2023 12:00am Start: 03-13-2023 End: 05-12-2023 take 1 tablet by mouth every hour, then take 1 tablet by mouth once daily oxybutynin 5 mg/24 hours oral tablet, extended release Dose : 5 mg = 1 tab(s), Oral, qDay, # 30 tab(s), 1 Refill(s), Pharmacy: [id number], OAB (overactive bladder), 157.5, cm, 03/13/23 10:04:00 EDT, Height, kg, 03/13/23 10:04:00 EDT, Dosing Weight Start Date: 03/13/23 Stop Date: 05/12/23 Status: Ordered rizatriptan 5 mg disintegrating oral tablet (18 sources) Serotonin-1b and Serotonin-1d Receptor Agonist Start: 07-12-2023 End: 09-04-2024 take 1 tablet by mouth every two hours as needed rizatriptan 5 mg disintegrating tablet Indications: PTSD (post-traumatic stress disorder) Take 1 tablet (5 mg) by mouth as needed. May repeat in 2 hours if needed. 12 tablet 2 09/04/2024 Active Start: 03-26-2023 End: 07-10-2023 take 1 tablet by mouth every two hours as needed rizatriptan (MAXALT UX ARCHITECT) 5 mg disintegrating tablet Take 1 tablet by mouth as needed. May repeat in 2 hours if needed. 12 tablet 2 03/26/2023 07/10/2023 Discontinued Start: 03-13-2023 rizatriptan 10 mg oral tablet Dose : 10 mg = 1 tab(s), Oral, Once, PRN as needed for migraine headache, # 6 tab(s), 0 Refill(s) Start Date: 03/13/23 Status: Ordered Start: 03-07-2023 End: 03-24-2023 take 1 tablet by mouth every two hours as needed rizatriptan (MAXALT UX ARCHITECT) 5 mg disintegrating tablet Take 1 tablet by mouth as needed. May repeat in 2 hours if needed. 12 tablet 2 03/07/2023 03/24/2023 Discontinued Comment on above: Take 1 tablet by agustin th as needed. May repeat in 2 hours if needed. Take 1 tablet (5 mg) by mouth as needed. May repeat in 2 hours if needed. Vibegron (1 source) Start: 04-26-2022 take 1 tablet by mouth once daily Vibegron (Gemtesa) 75 mg Tablet Active 75 MG PO DAILY April 26, 2022 12:00am Completed/Discontinued Medications Medication Drug Class(es) Dates Sig (Normalized) Sig (Original) acetaminophen 250 mg / aspirin 250 mg / caffeine 65 mg oral tablet (8 sources) Platelet Aggregation Inhibitor, Nonsteroidal Anti-inflammatory Drug, Central Nervous System Stimulant, Methylxanthine Start: 08-30-2022 End: 10-19-2024 Aspirin-Acetaminop hen-Caffeine (Excedrin Migraine) 250-250-65 mg Tablet Discontinued 1 {tbl} PO EVERY 6 HOURS as needed for Migraine Headache August 30, 2022 1:00am October 19, 2024 8:50am acetaminophen 325 mg / oxyCODONE hydrochloride 5 mg oral tablet (20 sources) Opioid Agonist Start: 09-26-2023 End: 06-15-2024 Oxycodone-Acetamin ophen (Percocet) 5-325 mg tablet Discontinued 1 {tbl} PO Q8H as needed for pain 9 3 September 26, 2023 June 15, 2024 10:35am Start: 09-18-2023 End: 06-15-2024 Oxycodone-Acetaminophen 5-32 5 mg tablet Discontinued 1 {tbl} PO EVERY 6 HOURS as needed for pain September 18, 2023 1:00am June 15, 2024 10:35am Start: 09-18-2023 take 1 tablet by agustin th every six hours Oxycodone-Acetaminophen Active 1 TABLET PO EVERY 6 HOURS September 18, 2023 12:00am Start: 07-19-2023 End: 07-25-2023 Oxycodone-Acetaminophen (Per cocet) 5-325 mg tablet Discontinued 1 {tbl} PO Q8H as needed for pain 10 July 19, 2023 July 25, 2023 2:52pm Start: 03-26-2023 End: 03-29-2023 take 1 tablet by mouth every four hours as needed for pain Percocet 5 mg-325 mg oral tablet Dose = 1 tab(s), Oral, q4h, PRN for pain, X 3 day(s), # 5 tab(s), 0 Refill(s), Pharmacy: [id number], Bladder pain, 157.5, cm, 03/26/23 9:41:00 EDT, Height, 47.6, kg, 03/26/23 9:41:00 EDT, Dosing Weight Start Date: 03/26/23 Stop Date: 03/29/23 Status: Ordered Start: 09-06-2022 End: 06-14-2023 Oxycodone-Acetaminophen (Per cocet) 5-325 mg tablet Discontinued 1 {tbl} PO Q8H as needed for pain 10 September 06, 2022 June 14, 2023 10:45am Start: 06-08-2020 End: 06-15-2020 Oxycodone-Acetaminophen 1 TA BLET tablet Discontinued 1 - 2 {tbl} PO EVERY 6 HOURS NEEDED as needed for Pain 16 02June 08, 2020 June 14, 2020 1:00am June 15, 2020 1:02am Start: 06-08-2020 End: 06-15-2020 take 1 tablet by mouth every six hours as needed Oxycodone-Acetaminophen Discontinued 1 - 2 TABLET PO EVERY 6 HOURS NEEDED 16 02June 08, 2020 June 15, 2020 12:02am amitriptyline hydrochloride 10 mg oral tablet (6 sources) Tricyclic Antidepressant Start: 01-29-2023 End: 03-07-2023 take 1 tablet by mouth once daily at bedtime amitriptyline (ELAVIL) 10 mg tablet Take 1 tablet by mouth daily at bedtime. 30 tablet 0 02/28/2023 03/07/2023 Discontinued Comment on above: Take 1 tablet by agustin th daily at bedtime. docusate sodium 50 mg oral capsule (9 sources) Start: 04-26-2022 End: 06-14-2023 Docusate Sodium 50 mg Capsule Discontinued 50 mg PO NEEDED as needed for Constipation April 26, 2022 12:00am June 14, 2023 10:45am 168 hr ethinyl estradiol 0.92868 mg/hr / norelgestromin 0.29223 mg/hr transdermal system (13 sources) Progestin, Estrogen Start: 05-10-2023 End: 06-14-2023 Norelgestromin-Eth in.Estradiol (Xulane) 150-35 mcg/24 hr patch weekly Discontinued 1 NMA TD Q7D 3 May 10, 2023 11:33am June 14, 2023 11:01am Start: 05-10-2023 End: 06-14-2023 Norelgestromin-Ethin.Estradi ol (Xulane) 150-35 mcg/24 hr patch weekly Active 1 PATCH TD Q7D 3 June 14, 2023 10:00am Start: 04-05-2022 Norelgestromin -Ethin.Estradiol (Xulane) 150-35 mcg/24 hr patch weekly Active 1 PATCH TD Q7D 3 April 05, 2022 12:00am Etonogestrel (Nexplanon) 68 mg implant (2 sources) Start: 09-18-2023 End: 01-11-2025 Etonogestrel (Nexplanon) 68 mg implant Discontinued 1 NMA subdermal DAILY September 18, 2023 1:00am January 11, 2025 2:05pm Start: 09-18-2023 Etonogestrel ( Nexplanon) 68 mg implant Active 1 IMPLANT subdermal DAILY September 18, 2023 12:00am ferrous sulfate 159 mg extended release oral tablet (12 sources) Start: 06-06-2020 End: 09-28-2021 Ferrous Sulfate, Dried 159 M G tablet extended release Discontinued 60 mg PO DAILY June 06, 2020 1:00am September 28, 2021 2:34pm Start: 06-06-2020 End: 09-28-2021 take 60 mg by mouth once daily Ferrous Sulfate, Dried Discontinued 60 MG PO DAILY June 06, 2020 12:00am September 28, 2021 1:34pm 2 ml ketorolac tromethamine 30 mg/ml injection (1 source) Nonsteroidal Anti-inflammatory Drug, Cyclooxygenase Inhibitor Start: 11-08-2022 End: 11-08-2022 keTORolac 60 mg injection (Toradol) metroNIDAZOLE 500 mg oral tablet (12 sources) Nitroimidazole Antimicrobial Start: 11-16-2021 End: 04-05-2022 take 1 tablet by mouth twice daily Metronidazole 500 MG tablet Discontinued 500 mg PO TWICE A DAY November 16, 2021 12:00am April 05, 2022 2:53pm naproxen 500 mg oral tablet (20 sources) Nonsteroidal Anti-inflammatory Drug Start: 06-14-2023 End: 12-21-2023 take 1 tablet by mouth once daily Naproxen 500 mg tablet Discontinued 500 mg PO DAILY June 14, 2023 1:00am July 25, 2023 2:52pm Start: 11-08-2022 End: 03-25-2023 take 1 tablet by mouth twice daily at mealtime as needed for headache naproxen (NAPROSYN) 500 mg tablet Take 1 tablet by mouth twice daily with meals. Take with food. As needed for headache 60 tablet 1 11/08/2022 03/25/2023 Discontinued Start: 06-08-2020 End: 07-13-2020 take 250-500 mg by mouth every eight hours as needed for pain Naproxen 250 MG tablet Discontinued 250 - 500 mg PO EVERY 8 HOURS NEEDED as needed for MILD PAIN June 08, 2020 1:00am July 13, 2020 4:09pm Start: 05-21-2017 End: 09-29-2018 take 1 tablet by mouth twice daily as needed Naproxen 500 MG tablet Discontinued 500 mg PO TWICE DAILY NEEDED May 21, 2017 12:00am September 29, 2018 4:22pm Comment on above: Take 1 tablet by agustin twice daily with meals. Take with food. As needed for headache NIFEdipine 30 mg osmotic 24 hr extended release oral tablet (12 sources) Dihydropyridine Calcium Channel Laurie Start: End: take 1 tablet by mouth once daily Nifedipine 30 MG tablet extended release 24hr Discontinued 30 mg PO DAILY June 09, 2020 1:00am September 28, 2021 2:34pm phenazopyridine hydrochloride 200 mg oral tablet (11 sources) Start: End: take 1 tablet by mouth three times daily as needed for muscle spasms Phenazopyridine (Pyridium) 200 mg tablet Discontinued 200 mg PO 3 TIMES DAILY NEEDED as needed for Bladder Spasms 03 03May 03, 2022 12:00am June 14, 2023 10:45am Comment on above: Take 1 tablet by agustin th three times daily as needed for pain (urinary burning. Turns urine orange.) for up to 2 days. Pnv #[id number] Acid-Omega3 30 mg iron-10 mg iron-1 mg capsule (1 source) Start: End: Pnv #[id number] Acid-Omega3 30 mg iron-10 mg iron-1 mg capsule Discontinued 1 NMA PO DAILY November 05, 2019 12:00am July 21, 2020 10:21am vitamin#30 30 mg iron-10 mg iron-folic acid 1 mg-omg3 capsule (11 sources) Start: End: take 1 capsule by mouth once daily vitamin#30 30 mg iron-10 mg iron-folic acid 1 mg-omg3 capsule Discontinued 1 CAP PO DAILY November 05, 2019 2:15pm July 21, 2020 10:21am Start: 11-05-2019 End: 07-21-2020 take 1 capsule by mouth once daily vitamin#30 30 mg iron-10 mg iron-folic acid 1 mg-omg3 capsule Discontinued 1 CAP PO DAILY November 04, 2019 11:00pm July 21, 2020 9:21am Start: 11-05-2019 End: 07-21-2020 take 1 capsule by mouth once daily vitamin#30 30 mg iron-10 mg iron-folic acid 1 mg-omg3 capsule Discontinued 1 CAP PO DAILY November 05, 2019 12:00am July 21, 2020 10:21am sertraline 25 mg oral tablet (20 sources) Serotonin Reuptake Inhibitor Start: 11-08-2022 End: 01-06-2024 take 1 tablet by mouth at bedtime Sertraline 25 mg tablet Discontinued 25 mg PO AT BEDTIME September 18, 2023 1:00am September 26, 2023 8:00am Start: 06-22-2020 End: 09-28-2021 take 1 tablet by mouth once daily Sertraline (Zoloft) 50 mg tablet Discontinued 50 mg PO DAILY June 22, 2020 1:00am September 28, 2021 2:34pm Comment on above: Take 1 tablet by agustin once daily. for PTSD sulfamethoxazole 800 mg / trimethoprim 160 mg oral tablet (2 sources) Dihydrofolate Reductase Inhibitor Antibacterial, Sulfonamide Antimicrobial Start: 09-26-2023 End: 06-15-2024 Sulfamethoxazole-Trime thoprim 800-160 mg tablet Discontinued 1 {tbl} PO TWICE A DAY 6 3 September 26, 2023 1:00am June 15, 2024 10:35am Start: 09-26-2023 take 1 tablet by agustin twice daily Sulfamethoxazole-Trimethoprim Active 1 T ABLET PO TWICE A DAY 6 September 26, 2023 12:00am vibegron (GEMTESA) 75 mg tab let (20 sources) Start: 04-26-2022 End: 01-06-2024 vibegron (GEMTESA) 75 mg tab let Start: 04-26-2022 vibegron (GEMT NANCY) 75 mg tablet zonisamide 25 mg oral capsule (8 sources) Anti-epileptic Agent Start: 03-20-2023 End: 01-06-2024 take 1 capsule by mouth once daily zonisamide (ZONEGRAN) 25 mg capsule Take 1 capsule by mouth once daily. 30 capsule 0 03/20/2023 01/06/2024 Discontinued Comment on above: Take 1 capsule by mo [facility] once daily. Problems Active Problems Problem Classification Problem Date Documented Da te Episodic/Chronic Abdominal pain (20 sources) Pelvic and perineal pain; Translations: [Pelvic and perineal pain] Onset: 2 11-08-2022 Episodic Anxiety disorders (20 sources) Posttraumatic stress disorder; Translations: [Post-traumatic stress disorder, unspecified] Onset: 3 Chronic Contraceptive and procreative management (5 sources) Encounter for contraceptive management, unspecified; Translations: [Unspecified contraceptive management] 07-25-2023 Episodic Essential hypertension (12 sources) Hypertensive disorder; Translations: [Essential (primary) hypertension] 06-10-2020 Chronic Gastrointestinal hemorrhage (3 sources) Gastrointestinal hemorrhage; Translations: [Gastrointestinal hemorrhage, unspecified] 08-28-2023 Episodic Genitourinary symptoms and ill-defined conditions (19 sources) Incontinence; Translations: [Mixed incontinence] Onset: 3 Chronic Comment on above: urogyn consult Headache; including migraine (7 sources) Migraine with aura; Translations: [Migraine with aura, not intractable, without status migrainosus] Onset: 4 Chronic Headache; including migraine (6 sources) Acute headache; Translations: [Acute nonintractable headache, unspecified headache type] Episodic Headache; including migraine (2 sources) Headache; including migraine; Translations: [Chronic daily headache] Onset: 3 Hypertension complicating ; childbirth and the puerperium (12 sources) -induced hypertension; Translations: [Gestational [-induced] hypertension without significant proteinuria, unspecified trimester] 09-28-2021 Episodic Inflammatory diseases of female pelvic organs (12 sources) Bacterial vaginosis; Translations: [Acute vaginitis] 11-24-2021 Episodic Menstrual disorders (3 sources) Irregular periods; Translations: [Irregular menstruation, unspecified] Onset: 5 09-04-2024 Chronic Mood disorders (3 sources) Major depression in partial remission; Translations: [Major depressive disorder, single episode, in partial remission] 02-06-2024 Chronic Other complications of (11 sources) Nausea and vomiting; Translations: [Vomiting of , unspecified] 05-30-2020 Episodic Other complications of (1 source) Vomiting of , unspecified; Translations: [Nausea and vomiting during ] 01-24-2019 Episodic Comment on above: rx phenergan Other connective tissue disease (2 sources) Spasm; Translations: [Other muscle spasm] 04-28-2023 Episodic Other diseases of bladder and urethra (7 sources) Disorder of bladder; Translations: [Other specified disorders of bladder] 05-03-2022 Chronic Other diseases of bladder and urethra (8 sources) Other specified disorders of bladder; Translations: [Other specified disorders of bladder] Onset: 3 09-06-2022 Chronic Other diseases of bladder and urethra (4 sources) Overactive bladder; Translations: [Overactive bladder] Onset: 3 03-06-2023 Chronic Other diseases of bladder and urethra (3 sources) Squamous metaplasia of bladder 03-06-2023 Chronic Other diseases of bladder and urethra (1 source) Overactive bladder; Translations: [Overactive bladder] Onset: 3 Chronic Other diseases of bladder and urethra (6 sources) Spasm of bladder; Translations: [Other specified disorders of bladder] 06-14-2023 Chronic Other diseases of bladder and urethra (1 source) Lesion of bladder; Translations: [Other specified disorders of bladder] 05-03-2022 Chronic Other female genital disorders (20 sources) Abnormal uterine bleeding; Translations: [Abnormal uterine and vaginal bleeding, unspecified] Onset: 2 04-05-2022 Chronic Comment on above: xulane patch. pelvic us ordered Other female genital disorders (3 sources) Abnormal uterine and vaginal bleeding, unspecified; Translations: [Unspecified disorders of menstruation and other abnormal bleeding from female genital tract] Chronic Other and delivery including normal (20 sources) Normal ; Translations: [Encounter for supervision of normal first , unspecified trimester] 05-30-2020 Episodic Comment on above: Grav 1 WAYLON BF Jamir Declines carrier, pl ans NIPT, AFP Other screening for suspected conditions (not mental disorders or infectious disease) (6 sources) Cancer cervix screening status; Translations: [Encounter for screening for malignant neoplasm of cervix] 06-14-2023 Episodic Ovarian cyst (3 sources) Cyst of ovary; Translations: [Unspecified ovarian cyst, unspecified side] 08-28-2023 Episodic Residual codes; unclassified (1 source) Treatment not available; Translations: [Procedure and treatment not carried out for other reasons] Episodic Residual codes; unclassified (1 source) Procedure not done; Translations: [Procedure and treatment not carried out for other reasons] Episodic Residual codes; unclassified (5 sources) Pain; Translations: [Pain, unspecified] 07-27-2023 Episodic Residual codes; unclassified (1 source) Tobacco use and exposure - finding; Translations: [Tobacco use] 11-02-2024 Episodic Spondylosis; intervertebral disc disorders; other back problems (12 sources) Torticollis; Translations: [Torticollis] 05-22-2017 Episodic Unclassified (1 source) NO SHOW 01-14-2024 Urinary tract infections (20 sources) Chronic interstitial cystitis; Translations: [Interstitial cystitis (chronic) without hematuria] Onset: 0 Chronic Urinary tract infections (20 sources) Eosinophilic cystitis; Translations: [Other cystitis without hematuria] Onset: 3 Episodic Past or Other Problems Problem Classification Problem Date Documented Date Episodic/Chronic Cancer of cervix (9 sources) Low grade squamous intraepithelial lesion on cervical Papanicolaou smear; Translations: [Low grade squamous intraepithelial lesion on cytologic smear of cervix (LGSIL)] Onset: 07-14-2024 06-20-2023 Episodic Comment on above: LEONOR 1, repeat PAP in 06/28: ASCUS, neg HPV. Rpt 1 year (06/2025). Genitourinary symptoms and ill-defined conditions (20 sources) History of urinary tract infection; Translations: [Personal history of urinary (tract) infections] Onset: 04-11-2022 11-08-2022 Episodic Immunizations and screening for infectious disease (15 sources) Patient encounter status; Translations: [Encounter for screening for infections with a predominantly sexual mode of transmission] Onset: 06-15-2024 06-14-2023 Episodic Comment on above: No PA needed with in surance type 10/23/24Mirena Nonmalignant breast conditions (2 sources) Breast tenderness; Translations: [Mastodynia] Onset: 07-21-2024 06-15-2024 Episodic Other connective tissue disease (1 source) Other muscle spasm; Translations: [Muscle spasm] Onset: 01-06-2024 Episodic Residual codes; unclassified (20 sources) History of headache; Translations: [Personal history of other specified conditions] Onset: 11-08-2022 Episodic Results Test Name Value Interpretation Reference Range 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 Office Visit Reporton 01-11-2025 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 Single 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 Office Visit Report [facility]'s [address], [address] [place] [address] OFFICE VISIT Date of Service: 01/11/25 MR#: [id number] Acct: [id number] Name: RIDDHI MEDLEY SENG Rep #: [id number] : 1995 Provider: PERFECTO Anderson ams Age/Sex: 29/F Location: [facility] [place] Status: Signed Intake Vital Signs 11/27/24 13:40 01/11/25 14:02 Height 5 ft 2 in 5 ft 2 in Weight: 119 lb 116 lb 6 oz BMI 21.7 21.2 BP 124/80 H 128/83 H Intake Visit Reasons: IUD check Lighter Required: No Is patient in pain?: Yes (pelvic pain, increased when walking) Allergies amitriptyline Adverse Reaction (Intermediate, Verified 01/11/25 14:05) confusion Medications ???Medication ???Instructions ???Recorded ???Confirmed ???Type Lactobacillus acidophilus 250 500 mmu cells PO DAILY 09/18/23 History million cell capsule (Probiotic Acidophilus) cephalexin 250 mg capsule 250 mg PO QHS 09/18/23 01/11/25 Hi story cyclobenzaprine 5 mg tablet 5 mg PO TID PRN SPASMS 09/18/23 History d-mannose 500 mg capsule 1,000 mg PO DAILY 09/18/23 5 History mirabegron 25 mg tablet,extended 50 mg PO QHS 09/18/23 01/11/25 His tory release 24 hr (Myrbetriq) nitrofurantoin 100 mg PO BID interstitial cystisi s 06/15/24 01/11/25 History monohydrate/macrocrystals 100 mg capsule (Macrobid) buspirone 5 mg tablet 5 mg PO TID PRN anxiety #30 tabs 0 10/19/24 01/11/25 Rx citalopram 10 mg tablet 10 mg PO QDAY 10/19/24 01/11/25 Hi story levonorgestrel (Mirena) 1 device intrauterine ONCE 5 01/11/25 History Post menopausal: No Patient : No : No PFSH Medical History Lesion of cervix Low grade squamous intraepithelial dysplasia Syncope Gastric reflux Constipation History of GI bleed PTSD (post-traumatic stress disorder) Marijuana use Anemia Easy bruising Vapes nicotine containing substance Bladder ulcer Dietary restriction Migraine Gestational hypertension History of depression History of anxiety Surgical History History of cystoscopy History of cystoscopy History of cystoscopy delivery delivered Family History Grandmother Diabetes Breast cancer Grandfather Diabetes [id number] deficiency Social History Smoking Status: Current every day smoker tobacco type: e-cigarettes Electronic Cigarette Use: with nicotine alcohol intake: never substance use type: does not use caffeine: Yes (rarely) what type of physical activity do you participate in: walking and other details: 20,000 steps per day seatbelt use: always do you feel safe at home: Yes additional social history: Boyfriend-JamirTito Hamazh Patient works at [employer] IUD check Details: RIDDHI MEDLEY is a 29 year old who presents for IUD check. Is not having pain with intercourse but occasionally has pain after. irregular spotting with IUD as well. Female Reproductive History Last Menstrual Period: 01/10/25 Questions: sexually active: Yes, dyspareunia: No and PCB: No History 2 Elective abortions Hx Para 1 Spontaneous abortions 1 Hx # Term Pregnancies Ectopic pregnancies Hx # Pregnancies Multiple births # of living children 1 Past Pregnancies Del. Date Name GA/Weeks Outcome Route Bth Weight Gen Labor Lgth Anesthesia Del Locatn Provider FOB 06/06/20 Beck 38 live - full term Male epidural [facility] Delivery Date: 06/06/20 Last Updated by: Linda Valenzuela IOL GHTN; cord prolapse STAT LTCS ROS Const Constitutional: Reports system reviewed and no additional complaints, except as documented Cardio Card: Reports system reviewed and no additional complaints, except as documented Resp Resp: Reports system reviewed and no additional complaints, except as documented GI GI: Reports system reviewed and no additional complaints, except as documented : Reports system reviewed and no additional complaints, except as documented; Denies difficulty voiding, dysuria or urinary frequency Skin Skin/Breast: Reports system reviewed and no additional complaints, except as documented Neuro Neuro: Reports system reviewed and no additional complaints, except as documented Psych Psych: Reports system reviewed and no additional complaints, except as documented; Denies anhedonia, anxiety or depression Exam Const General: cooperative, healthy appearing, comfortable and no acute distress Orientation: alert, awake and oriented x3 Resp Effort Inspection: normal respiratory effort, able to speak in complete se (more content not included)... 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 Office Visit Report [facility] [address], [address] [place] [address] OFFICE VISIT Date of Service: 11/27/24 MR#: [id number] Acct: [id number] Name: RIDDHI MEDLEY SENG Rep #: [id number] : 1995 Provider: PERFECTO Anderson ams Age/Sex: 29/F Location: [facility] [place] Status: Signed Intake Vital Signs 10/19/24 08:38 10/19/24 09:20 11/27/24 13:40 Height 5 ft 2 in 5 ft 2 in Weight: 115 lb 4 oz 119 lb BMI 21.0 21.7 BP 114/81 H 124/80 H Intake Visit Reasons: Nexplanon Removal/Mirena Insertion Chief Complaint: Nexplanon Removal/Mirena Insertion Lighter Required: No Is patient in pain?: No Allergies amitriptyline Adverse Reaction (Intermediate, Verified 11/27/24 13:44) confusion Medications ???Medication ???Instructions ???Recorded ???Confirmed ???Type Lactobacillus acidophilus 250 500 mmu cells PO DAILY 09/18/23 History million cell capsule (Probiotic Acidophilus) cephalexin 250 mg capsule 250 mg PO QHS 09/18/23 11/27/24 Hi story cyclobenzaprine 5 mg tablet 5 mg PO TID PRN SPASMS 09/18/23 History d-mannose 500 mg capsule 1,000 mg PO DAILY 09/18/23 5 History etonogestrel 68 mg subdermal 1 implant subdermal DAILY 09/18/23 11/27/24 History implant (Nexplanon) mirabegron 25 mg tablet,extended 50 mg PO QHS 09/18/23 11/27/24 His tory release 24 hr (Myrbetriq) nitrofurantoin 100 mg PO BID interstitial cystisi s 06/15/24 11/27/24 History monohydrate/macrocrystals 100 mg capsule (Macrobid) buspirone 5 mg tablet 5 mg PO TID PRN anxiety #30 tabs 0 10/19/24 11/27/24 Rx citalopram 10 mg tablet 10 mg PO QDAY 10/19/24 11/27/24 Hi story PFSH PFSH Medical History Lesion of cervix Low grade squamous intraepithelial dysplasia Syncope Gastric reflux Constipation History of GI bleed PTSD (post-traumatic stress disorder) Marijuana use Anemia Easy bruising Vapes nicotine containing substance Bladder ulcer Dietary restriction Migraine Gestational hypertension History of depression History of anxiety Surgical History History of cystoscopy History of cystoscopy History of cystoscopy delivery delivered Family History Grandmother Diabetes Breast cancer Grandfather Diabetes Poivo-0-[id number] deficiency Social History Smoking Status: Current every day smoker tobacco type: e-cigarettes Electronic Cigarette Use: with nicotine alcohol intake: never substance use type: does not use caffeine: Yes (rarely) what type of physical activity do you participate in: walking and other details: 20,000 steps per day seatbelt use: always do you feel safe at home: Yes additional social history: Boyfriend-Gerardo Goodson Patient works at [employer] History 2 Elective abortions Hx Para 1 Spontaneous abortions 1 Hx # Term Pregnancies Ectopic pregnancies Hx # Pregnancies Multiple births # of living children 1 Past Pregnancies Del. Date Name GA/Weeks Outcome Route Bth Weight Gen Labor Lgth Anesthesia Del Locatn Provider FOB 06/06/20 Beck 38 live - full term Male epidural [facility] Delivery Date: 06/06/20 Last Updated by: Linda Valenzuela IOL GHTN; cord prolapse STAT LTCS HPI Nexplanon Removal/Mirena Insertion Details: RIDDHI MEDLEY is a 29 year old who presents for nexplanon removal and IUD insertion. risk and benefits discussed-would like to proceed with procedure. ROS Const Constitutional: Reports system reviewed and no additional complaints, except as documented Cardio Card: Reports system reviewed and no additional complaints, except as documented Resp Resp: Reports system reviewed and no additional complaints, except as documented GI GI: Reports system reviewed and no additional complaints, except as documented : Reports system reviewed and no additional complaints, except as documented Musc Musc: Reports system reviewed and no additional complaints, except as documented Skin Skin/Breast: Reports system reviewed and no additional complaints, except as documented Neuro Neuro: Reports system reviewed and no additional complaints, except as documented Psych Psych: Reports system reviewed and no additional complaints, except as documented Endo Endo: Reports system reviewed and no additional complaints, except as documented Dexter/Lymph Hematologic/Lymphatic: Reports system reviewed and no additional complaints, except as documented Aller/Immun Allergic/Immunologic: Reports system reviewed and no additional complaints, except as documented Exam Const Ge (more content not included)... 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 PMH significant for ACTIVE PROBLEM LIST History of Urinary Tract Infection Interstitial Cystitis Abnormal Uterine Bleeding Pelvic and Perineal Pain History of Headache Ptsd (Post-Traumatic Stress Disorder) Presents today for a recheck. HPI excerpted from previous visit: She is concerned about possible hormone imbalance. She is interested in completing some lab work to check this. She reports irregular menstrual cycle. She reports recently having a heavy 2-week long cycle with small clots. She is followed by Dr. Jackson SR. DIRECTOR PRODUCT MANAGEMENT. She reports that she has a Nexplanon in place. She notes she is due for a follow-up visit. She reports history of migraine with aura, previously seen by Dr. Worthy. Last visit 2022. Has had triptans prescribed in the past. Have been effective. She also uses Excedrin Migraine when needed. She notes multiple triggers for migraines. She reports 15 headaches per month perhaps more. Continues to follow with Emma Schilling MD urology asking for interstitial cystitis. Missed her appointment with psychiatry for PTSD. Would like to see seen for this. Anxiety: - Started on citalopram 10 mg and buspirone since last visit. - Reports significant improvement in anxiety symptoms with buspirone. - Prefers to maintain current medication regimen, especially with upcoming control change. - Previously saw a psychiatrist but has not followed up recently. Hormonal Fluctuations: - Noted crazy hormone fluctuations around the 2-year laura of current control use. - Account Adjuster plans to change control at the end of November. Lifestyle: - Currently vaping; attempting to reduce usage. 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 Without complaint reggarding headache today. ROS Psychiatric: (+) anxiety with Objective BP 110/72 Pulse 88 Resp 16 Wt 52 kg (114 lb 10.2 oz) LMP 01/03/2024 (Approximate) BMI 20.97 kg/m? Physical Exam Vitals and nursing note reviewed. Constitutional: Appearance: Normal appearance. HENT: Head: Normocephalic and atraumatic. Eyes: Conjunctiva/sclera: Conjunctivae normal. Cardiovascular: Rate and Rhythm: Normal rate. Pulmonary: Effort: Pulmonary effort is normal. Musculoskeletal: Right lower leg: No edema. Left lower leg: No edema. Skin: General: Skin is warm and dry. Neurological: General: No focal deficit present. Mental Status: She is alert and oriented to person, place, and time. ALLERGIES Allergen Reactions Bee Sting Hives, Swelling Bees Swelling, Shortness of Breath Elavil [Amitriptyli* Intolerance Medications busPIRone (BUSPAR) 5 mg tablet Take 5 mg by mouth three times a day. etonogestrel (NEXPLANON) subdermal implant 68 mg 68 mg by SUBDERMAL route one time only. Dr. Manuel Garcia SR. DIRECTOR PRODUCT MANAGEMENT rizatriptan 5 mg disintegrating tablet Take 1 tablet (5 mg) by mouth as needed. May repeat in 2 hours if needed. citalopram (CELEXA) 10 mg tablet Take 1 tablet by mouth once daily. cephALEXin (KEFLEX) 250 mg capsule Take 1 capsule by mouth daily at bedtime. MYRBETRIQ 50 mg Tb24 Take 100 mg by mouth once daily. cyclobenzaprine (FLEXERIL) 5 mg tablet Take 5 mg by mouth daily at bedtime. ondansetron orally disintegrating (ZOFRAN ODT) 4 mg disintegrating tablet Take 1 tablet by mouth every 6 hours as needed for nausea/vomiting. PAST MEDICAL HISTORY Diagnosis Date History of headache Interstitial cystitis PTSD (post-traumatic stress disorder) Recurrent UTI (urinary tract infection) Social History Tobacco Use Smoking status: Every Day Current packs/day: 0.50 Average packs/day: 0.5 packs/day for 5.0 years (2.5 ttl pk-yrs) Types: Cigarettes Smokeless tobacco: Never Vaping Use Vaping status: Some Days Substance Use Topics Alcohol use: No Drug use: No Comment: history narcotic abuse years ago 1. PTSD (post-traumatic stress disorder) (F43.10) - Currently managed with citalopram 10 mg daily and buspirone, which has shown improvement in anxiety symptoms. - Discussed potential need for dosage adjustment of citalopram in the future depending on symptom control. - Has not initiated counseling or psychiatric follow-up; encouraged consideration of therapy as an adjunct treatment. 2. Irregular menses (N92.6) - Has been experiencing hormonal (more content not included)... 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 Nohelia Chou DO Age/Sex: 29/F Location: [facility] [place] Status: Signed Intake Vital Signs 06/15/24 09:38 10/19/24 08:38 Height 5 ft 2 in 5 ft 2 in Weight: 115 lb 4 oz BMI 21.0 BP 114/81 H Intake Visit Reasons: Hormonal issues/Missed period Lighter Required: No Is patient in pain?: No Allergies amitriptyline Adverse Reaction (Intermediate, Verified 10/19/24 08:37) confusion Medications ???Medication ???Instructions ???Recorded ???Confirmed ???Type Lactobacillus acidophilus 250 500 mmu cells PO DAILY 09/18/23 History million cell capsule (Probiotic Acidophilus) cephalexin 250 mg capsule 250 mg PO QHS 09/18/23 10/19/24 Hi story cyclobenzaprine 5 mg tablet 5 mg PO TID PRN SPASMS 09/18/23 History d-mannose 500 mg capsule 1,000 mg PO DAILY 09/18/23 5 History etonogestrel 68 mg subdermal 1 implant subdermal DAILY 09/18/23 10/19/24 History implant (Nexplanon) mirabegron 25 mg tablet,extended 50 mg PO QHS 09/18/23 10/19/24 His tory release 24 hr (Myrbetriq) nitrofurantoin 100 mg PO BID interstitial cystisi s 06/15/24 10/19/24 History monohydrate/macrocrystals 100 mg capsule (Macrobid) buspirone 5 mg tablet 5 mg PO TID PRN anxiety #30 tabs 0 10/19/24 10/19/24 Rx citalopram 10 mg tablet 10 mg PO QDAY 10/19/24 10/19/24 Hi story Post menopausal: No Patient : No : No PFSH Medical History Lesion of cervix Low grade squamous intraepithelial dysplasia Syncope Gastric reflux Constipation History of GI bleed PTSD (post-traumatic stress disorder) Marijuana use Anemia Easy bruising Vapes nicotine containing substance Bladder ulcer Dietary restriction Migraine Gestational hypertension History of depression History of anxiety Surgical History History of cystoscopy History of cystoscopy History of cystoscopy delivery delivered Family History Grandmother Diabetes Breast cancer Grandfather Diabetes Uujha-9-uhzkqituvsn deficiency Social History Smoking Status: Current every day smoker tobacco type: e-cigarettes Electronic Cigarette Use: with nicotine alcohol intake: never substance use type: does not use caffeine: Yes (rarely) what type of physical activity do you participate in: walking and other details: 20,000 steps per day seatbelt use: always do you feel safe at home: Yes additional social history: Boyfriend-Gerardo Goodson Patient works at [employer] Hormonal issues/Missed period Details: RIDDHI MEDLEY is a 29 year old who presents for discussion about anger, depression, anxiety that surrounds her feelings of her partner who cheated a year ago. She finds herself tracking his every move and there are days she loves him and days she hates him. She wonders if this is hormonally related. She has a nexplanon in place x a little over 2 years and has menses monthly that last 4 days. She works and takes care of her child and his 2 children. History 2 Elective abortions Hx Para 1 Spontaneous abortions 1 Hx # Term Pregnancies Ectopic pregnancies Hx # Pregnancies Multiple births # of living children 1 Past Pregnancies Del. Date Name GA/Weeks Outcome Route Bth Weight Infant Gen Labor Lgth Anesthesia Del Kurt Provider FOB 06/06/20 Beck 38 live - full term Male epidural [facility] Delivery Date: 06/06/20 Last Updated by: Linda Valenzuela IOL GHTN; cord prolapse STAT LTCS ROS Const ROS Unobtainable: All systems reviewed are unremarkable except as noted in H Resp Resp: Reports system reviewed and no additional complaints, except as documented; Denies cough GI GI: Reports as per HPI Psych Psych: Reports system reviewed and no additional complaints, except as documented Exam Const General: cooperative, healthy appearing, comfortable and no acute distress Resp Effort Inspection: normal respiratory effort Skin General: no rashes or lesions noted Psych Appearance: grossly normal Speech and Movement: speech and movement normal Coding Level of Care Code Off vis,est,level 3 Diagnoses Mood disorder F39 Contraceptive management Z30.9 Assessment and Plan Assessment and Plan (1) Mood disorder: Status: Acute (2) Contraceptive management: Status: Acute Medications: New (more content not included)... Normal [facility] CREATININE [facility] 09-05-2024 Creatinine [Mass/Vol] 0.84 mg/dL 0.58 - 0.96 mg/dL [facility] GFR/1.73 sq M.predicted among non-blacks MDRD (S/P/Bld) [Vol rate/Area] 97 mL/min/{1.73_m2} - PINF [facility] Comment on above: Estimated Glomerular Filtration Rate (eGFR) is calculated using the 2020 CKD-EPI creatinine equation. This equation utilizes serum creatinine, sex, and age as parameters. The creatinine assay has traceable calibration to isotope dilution-mass spectrometry. Refer to KDIGO guidelines for clinical interpretation. In patients with unstable renal function, e.g. those with acute kidney injury, the eGFR may not accurately reflect actual GFR. Interpretation and review of laboratory results Normal [facility] DHEA-S [facility] 09-05-2024 DHEA-S [Mass/Vol] 166.7 ug/dL 98.8 - 340 .0 ug/dL [facility] Comment on above: Reference ranges are age and gender specific. For additional information, reference range tables can be found in the laboratory test directory. The normal values are based on the following source: Dehydroepiandrosterone sulfate (DHEA S) [package insert V 17.0 Vietnamese]. [facility], [place], [place]: March 2013. Interpretation and review of laboratory results Normal [facility] FOLLICLE STIMULATING HORMONE on 09-05-2024 Follitropin Qn 2.5 m[IU]/mL See comment mIU/mL [facility] Comment on above: Reference range: Follicular: 3.5-12.5 mIU/mL Ovulation: 4.7-21.5 mIU/mL Luteal: 1.7-7.7 mIU/mL Postmenopausal: 25.8-134.8 mIU/mL LUTEINIZING HORMONEon 2024 Lutropin Qn 2.2 m[IU]/mL See comment mIU/mL [facility] Comment on above: Reference range: Follicular: 2.4-12.6 mIU/mL Midcycle: 14.0-95.6 mIU/mL Luteal: 1.0-11.4 mIU/mL Post [place]: 7.7-58.5 mIU/mL Lipid 1996 panelon Cholesterol [Mass/Vol] 164 mg/dL NINF - 200 mg/dL [facility] Comment on above: <200 mg/dL, Desirabl e 200-239 mg/dL, Borderline high >239 mg/dL, High Cholesterol in HDL [Mass/Vol] 61 mg/dL 39 - PINF mg/dL [facility] Comment on above: 40-59 mg/dL, Accepta ble >59 mg/dL, High: Negative risk factor for coronary heart disease <40 mg/dL, Low: Positive risk factor for coronary heart disease Cholesterol in LDL [Mass/Vol] 95 mg/dL NINF - 100 mg/dL [facility] Comment on above: <100 mg/dL, Optimal 100-129 mg/dL, Near optimal/above optimal 130-159 mg/dL, Borderline high 160-189 mg/dL, High >189 mg/dL, Very high Secondary prevention optimal LDL Cholesterol levels are recommended to be < 70 mg/dL Cholesterol in LDL/Cholesterol in HDL [Mass ratio] 1.56 {ratio} NINF - 2.54 [facility] Comment on above: Reference: 1. National Cholesterol Education Program ATP III Guideline At-A-Glance Quick Desk Reference: National Heart, Lung, and Blood [place]. National Institutes of Health. 2001: NIH Publication No. 01-3305. 2. An International Atherosclerosis Society position paper: global recommendations for the management of dyslipidemia: executive summary, Atherosclerosis. 2014: 232(2):410-413. Cholesterol in VLDL [Mass/Vol] 8 mg/dL NINF - 30 mg/dL [facility] Cholesterol non HDL [Mass/Vol] 103 mg/dL NINF - 130 mg/dL [facility] Comment on above: <130 mg/dL, Optimal 130-159 mg/dL, Near optimal/above optimal 160-189 mg/dL, Borderline high 190-219 mg/dL, High >219 mg/dL, Very high Secondary prevention optimal non HDL Cholesterol levels are recommended to be <100 mg/dL Cholesterol.total/Chol esterol in HDL [Mass ratio] 2.69 {ratio} NINF - 5.10 [facility] Fasting Time 17 hrs [facility] Triglyceride [Mass/Vol] 42 mg/dL NINF - 150 mg/dL [facility] Comment on above: <150 mg/dL, Normal 150-199 mg/dL, Borderline high 200-499 mg/dL, High >499 mg/dL, Very high [facility] No Panel Informationon 09-05 [facility] Interpretation and review of laboratory results Normal [facility] PROGESTERONEon 09-05-2024 Progesterone [Mass/Vol] 0.2 ng/mL See comment [facility] Comment on above: Menstrual Cycle Prog esterone Reference Ranges: Follicular: <1.0 ng/mL Ovulation: <12.1 ng/mL Luteal: 1.8 to 23.9 ng/mL. Progesterone Reference Ranges vary by gestational period: First Trimester: 11.0 to 44.3 ng/mL Second Trimester: 25.4 to 83.3 ng/mL Third Trimester: 58.7 to 214 ng/mL Post menopausal Progesterone: <0.5 ng/mL Reference: 1. Progesterone (Progesterone III) [package insert V 1.0 Vietnamese]. [facility], [place], [place]. May 2015. PROLACTINon 09-05-2024 Prolactin [Mass/Vol] 17.2 ng/mL 4.4 - 3 3.8 ng/mL [facility] Comment on above: Prolactin test is pe rformed using the [facility] Electrochemiluminescence Immunoassay method. Results obtained with different methods or kits cannot be used interchangeably. THYROID STIMULATING HORMONEo n 09-05-2024 TSH Qn 1.580 m[IU]/L [facility] Comment on above: If the patient is pr egnant, TSH reference range varies by gestational period: First Trimester (weeks 9-12): 0.180-2.990 mIU/L Second Trimester: 0.110-3.980 mIU/L Third Trimester: 0.480-4.710 mIU/L Suleman Chowdhury et al. A Practical Approach for the Verifications and Determination of Site- and Trimester-Specific Reference Intervals for Thyroid Function tests in . Thyroid, 2019:29:3:412-420. Sebas Zambrano, et al. 2017 Guidelines of the [place] Thyroid Association for the Diagnosis and Management of Thyroid Disease during and the . Thyroid, 2017:27:3:315-389. CNOVon 09-04-2024 CNOV Office Visit (INTMWS ) ----- RIDDHI MEDLEY ([id number]) 1995 F Date Time Provider Department 09/04/24 2:00 PM ROD ROSALES INTMWS During your visit today, we recorded the following information about you: Rod Rosales, LORENA.RADIO SURVEY WORKER 09/05/2024 11:46 AM Signed SUBJECTIVE: Pneumococcal Vaccine(1 of 2 - PCV) Never done Influenza Vaccine(1) due on 04/05/2024 Covid-19 Vaccine( - season) Never done HPI Riddhi Medley is a 29 year old female. PMH significant for ACTIVE PROBLEM LIST History of Urinary Tract Infection Interstitial Cystitis Abnormal Uterine Bleeding Pelvic and Perineal Pain History of Headache Ptsd (Post-Traumatic Stress Disorder) Presents today for a recheck. She is concerned about possible hormone imbalance. She is interested in completing some lab work to check this. She reports irregular menstrual cycle. She reports recently having a heavy 2-week long cycle with small clots. She is followed by Dr. Jackson SR. [employer]NA[employer]. She reports that she has a Nexplanon in place. She notes she is due for a follow-up visit. She reports history of migraine with aura, previously seen by Dr. Worthy. Last visit 2022. Has had triptans prescribed in the past. Have been effective. She also uses Excedrin Migraine when needed. She notes multiple triggers for migraines. She reports 15 headaches per month perhaps more. Continues to follow with Emma Schilling MD urology asking for interstitial cystitis. Missed her appointment with psychiatry for PTSD. Would like to see seen for this. Review of Systems Genitourinary: Positive for menstrual problem. Neurological: Positive for headaches. Objective BP (P) 112/76 Pulse (P) 98 Resp (P) 16 Wt (P) 49 kg (108 lb 0.4 oz) LMP 01/03/2024 (Approximate) BMI (P) 19.76 kg/m? Physical Exam Vitals and nursing note reviewed. Constitutional: Appearance: Normal appearance. HENT: Head: Normocephalic and atraumatic. Eyes: Conjunctiva/sclera: Conjunctivae normal. Cardiovascular: Rate and Rhythm: Normal rate. Pulmonary: Effort: Pulmonary effort is normal. Musculoskeletal: Right lower leg: No edema. Left lower leg: No edema. Skin: General: Skin is warm and dry. Neurological: General: No focal deficit present. Mental Status: She is alert and oriented to person, place, and time. ALLERGIES Allergen Reactions Bee Sting Hives, Swelling Bees Swelling, Shortness of Breath Elavil [Amitriptyli* Intolerance Medications etonogestrel (NEXPLANON) subdermal implant 68 mg 68 mg by SUBDERMAL route one time only. Dr. Manuel Garcia SR. [employer]NAG[employer] cephALEXin (KEFLEX) 250 mg capsule Take 1 capsule by mouth daily at bedtime. MYRBETRIQ 50 mg Tb24 Take 100 mg by mouth once daily. cyclobenzaprine (FLEXERIL) 5 mg tablet Take 5 mg by mouth daily at bedtime. ondansetron orally disintegrating (ZOFRAN ODT) 4 mg disintegrating tablet Take 1 tablet by mouth every 6 hours as needed for nausea/vomiting. rizatriptan 5 mg disintegrating tablet Take 1 tablet (5 mg) by mouth as needed. May repeat in 2 hours if needed. citalopram (CELEXA) 10 mg tablet Take 1 tablet by mouth once daily. PAST MEDICAL HISTORY Diagnosis Date History of headache Interstitial cystitis PTSD (post-traumatic stress disorder) Recurrent UTI (urinary tract infection) Social History Tobacco Use Smoking status: Every Day Current packs/day: 0.50 Average packs/day: 0.5 packs/day for 5.0 years (2.5 ttl pk-yrs) Types: Cigarettes Smokeless tobacco: Never Vaping Use Vaping status: Some Days Substance Use Topics Alcohol use: No Drug use: No Comment: history narcotic abuse years ago ASSESSMENT/PLAN: 1. Irregular menses - ICD9: 626.4, ICD10: N92.6 (primary diagnosis) Presents today regarding concern for possible hormone imbalance. She noted prolonged menses of 2 weeks with small clots. Interested in completing lab work for hormone imbalance. Completed September 04, 2024, results in 2 days within normal. She follows with Dr. Pepe Mclaughlin SR. [employer]NA[employer], due for follow-up. She has a Nexplanon in place. Endorse making an appointment with SR. 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 2. Migraine with aura and without status migrainosus, not intractable - ICD9: 346.00, ICD10: G43.109 3. Chronic daily headache - ICD9: 784.0, ICD10: R51.9 Endorse continue with treatments as prescribed by neurology and schedule follow-up visit with Dr. Worthy. 4. PTSD (post-traumatic stress disorder) - ICD9: 309.81, ICD10: F43.10 Endorse continue with current treatment unchanged and make an appointment with psychiatry. - CONSULT TO PSYCHIATRY - CITALOPRAM 10 MG TABLET Rod Rosales APRN.RADIO SURVEY WORKER Medical Decision Making: Problems: Moderate: 2+ stable chronic illnesses Data: Unique test(s) ordered: 3+ Risk: Moderate: Drug management Medical Decision Making Level: 4 - Moderate Allergies As of Date: 09/04/2024 Noted All (more content not included)... Normal [facility] CREATININE BLDon 09-04-2024 Creatinine [Mass/Vol] 0.84 mg/dL Normal 0.58-0.96 [facility] Comment on above: Order Comment: Speci lilliam Type: BLOOD SPECIMEN Ordering Facility: [facility] Address: [address] [place] [address] Performed By: #### C RET1, 2842-3, 2839-9, 3016-3 #### [facility] CLIA [id number] [address] [place] [address] [place] Creatinine and Glomerular filtration rate.predicted panel (S/P/Bld) 97 mL/min/1.73m??? Normal >=60 [facility] Comment on above: Order Comment: Jemima lilliam Type: BLOOD SPECIMEN Ordering Facility: [facility] Address: [address] [place] [address] Result Comment: Cherie mated Glomerular Filtration Rate (eGFR) is calculated using the 2020 CKD-EPI creatinine equation. This equation utilizes serum creatinine, sex, and age as parameters. The creatinine assay has traceable calibration to isotope dilution-mass spectrometry. Refer to KDIGO guidelines for clinical interpretation. In patients with unstable renal function, e.g. those with acute kidney injury, the eGFR may not accurately reflect actual GFR. Performed By: #### C RET1, 2842-3, 2839-9, 3016-3 #### [facility] CLIA [id number] [address] [place] [address] [place] DHEA-S BLDon 09-04-2024 DHEA-S [Mass/Vol] 166.7 ug/dL Normal 98.8-340.0 [facility] Comment on above: Order Comment: Speci lilliam Type: BLOOD SPECIMEN Ordering Facility: [facility] Address: [address] [place] [address] Result Comment: Refe rence ranges are age and gender specific. For additional information, reference range tables can be found in the laboratory test directory. The normal values are based on the following source: Dehydroepiandrosterone sulfate (DHEA S) [package insert V 17.0 Vietnamese]. [facility], [place], [place]: March 2013. Performed By: #### 5 5454-3 #### [facility] CLIA [id number] [address] [place] [address] [place] FSH SerPl-aCncon 09-04-2024 Follitropin Qn 2.5 m[IU]/mL Normal See comment [facility] [place] Comment on above: Order Comment: Speci men Type: BLOOD SPECIMEN Ordering Facility: [facility] Address: [address] [place] [address] Result Comment: Refe rence range: Follicular: 3.5-12.5 mIU/mL Ovulation: 4.7-21.5 mIU/mL Luteal: 1.7-7.7 mIU/mL Postmenopausal: 25.8-134.8 mIU/mL Performed By: #### 5 5454-3 #### [facility] CLIA [id number] [address] [place] [address] [place] Glucose post fast [Mass/Vol] on 09-04-2024 Interpretation and review of laboratory results Normal [facility] HYDROXYPROGESTERONE-17on 17-HYDROXYPROGESTERONE QUANTITATIVE BY HPLC-MS/MS, SERUM OR PLASMA 20.19 ng/dL Normal <=206.00 [facility] Comment on above: Order Comment: Speci men Type: BLOOD SPECIMEN Ordering Facility: [facility] Address: [address] [place] [address] Result Comment: INTERPRETIVE INFORMATION for 17-Hydroxyprogesterone in females: Follicular 15 to 70 ng/dL Luteal 35 to 290 ng/dL REFERENCE INTERVAL: 17-Hydroxyprogesterone Qnt, HPLC-MS/MS Access complete set of age- and/or gender-specific reference intervals for this test in the [facility] Test Directory (Anna [email or web address].iPosition). This test was developed and its performance characteristics determined by [facility]. It has not been cleared or approved by the US Food and Drug Administration. This test was performed in a CLIA certified laboratory and is intended for clinical purposes. Performed By: [facility] [address] [place] [address] Diesel Truck Driver: Kaushik Arreguin MD, PhD CLIA Number: [id number] Performed By: #### C RET1, 2842-3, 2839-9, 3016-3 #### [facility] CLIA [id number] [address] [place] [address] [place] HbA1c (Bld)on 09-04-2024 Average glucose Estimated from glycated hemoglobin (Bld) [Mass/Vol] 105 mg/dL Normal [facility] Comment on above: Order Comment: Jemima vyas Type: BLOOD SPECIMEN Ordering Facility: [facility] Address: [address] [place] [address] Result Comment: eAG: (Estimated average glucose) is a calculated value from HgbA1c and is regional sales representative of the average blood glucose level in the last 2-3 month period. Performed By: #### 5 5454-3 #### [facility] CLIA [id number] [address] [place] [address] [place] HbA1c (Bld) [Mass fraction] 5.3 % Normal 4.3-5.6 [facility] Comment on above: Order Comment: Jemima vyas Type: BLOOD SPECIMEN Ordering Facility: [facility] Address: [address] [place] [address] Result Comment: Amer ican Diabetes Association guidelines indicate that patients with HgbA1c in the range 5.7-6.4% are at increased risk for development of diabetes, and intervention by lifestyle modification may be beneficial. HgbA1c greater or equal to 6.5% is considered diagnostic of diabetes. Performed By: #### 5 5454-3 #### [facility] CLIA [id number] [address] [place] [address] [place] Insulin SerPl-aCncon 025 Insulin Qn 5.1 uU/mL Normal 2.6-24.9 [facility] Comment on above: Order Comment: Jemima vyas Type: BLOOD SPECIMEN Ordering Facility: [facility] Address: [address] [place] [address] Performed By: #### 2 0448-7 #### [facility] CLIA [id number] [address] [place] [address] [place] LH SerPl-aCncon 09-04-2024 Lutropin Qn 2.2 m[IU]/mL Normal See comment [facility] Comment on above: Order Comment: Jemima vyas Type: BLOOD SPECIMEN Ordering Facility: [facility] Address: [address] [place] [address] Result Comment: Refe rence range: Follicular: 2.4-12.6 mIU/mL Midcycle: 14.0-95.6 mIU/mL Luteal: 1.0-11.4 mIU/mL Post Reyna: 7.7-58.5 mIU/mL Performed By: #### 5 5454-3 #### [facility] CLIA [id number] [address] [place] [address] [place] Laboratory - Chemistry and C hemistry - challengeon 09-04-2024 Glucose post fast [Mass/Vol] 85 mg/dL Normal 74-99 [facility] Comment on above: [place] Diabetes As sociation guidelines state that a diabetes mellitus diagnosis is preliminarily made when the fasting plasma glucose meets or exceeds 126 mg/dL. In the absence of unequivocal hyperglycemia, results should be confirmed with repeat testing. Patients are at increased risk for diabetes mellitus (prediabetes) when the fasting glucose is 100 to 125 mg/dL. Order Comment: Jemima vyas Type: BLOOD SPECIMEN Ordering Facility: [facility] Address: [address] [place] [address] Result Comment: Amer ican Diabetes Association guidelines state that a diabetes mellitus diagnosis is preliminarily made when the fasting plasma glucose meets or exceeds 126 mg/dL. In the absence of unequivocal hyperglycemia, results should be confirmed with repeat testing. Patients are at increased risk for diabetes mellitus (prediabetes) when the fasting glucose is 100 to 125 mg/dL. Performed By: #### 5 5454-3 #### [facility] CLIA [id number] [address] [place] [address] [place] Lipid 1996 panelon Cholesterol [Mass/Vol] 164 mg/dL Normal <200 [facility] Comment on above: Order Comment: Speci men Type: BLOOD SPECIMEN Ordering Facility: [facility] Address: [address] [place] [address] Result Comment: <200 mg/dL, Desirable 200-239 mg/dL, Borderline high >239 mg/dL, High Performed By: #### 5 5454-3 #### [facility] CLIA [id number] [address] [place] [address] [place] Cholesterol in HDL [Mass/Vol] 61 mg/dL Normal >39 [facility] Comment on above: Order Comment: Jose Rafaeli men Type: BLOOD SPECIMEN Ordering Facility: [facility] Address: [address] [place] [address] Result Comment: 40-5 9 mg/dL, Acceptable >59 mg/dL, High: Negative risk factor for coronary heart disease <40 mg/dL, Low: Positive risk factor for coronary heart disease Performed By: #### 5 5454-3 #### [facility] CLIA [id number] [address] [place] [address] [place] Cholesterol in LDL [Mass/Vol] 95 mg/dL Normal <100 [facility] Comment on above: Order Comment: Jemima lilliam Type: BLOOD SPECIMEN Ordering Facility: [facility] Address: [address] [place] [address] Result Comment: <100 mg/dL, Optimal 100-129 mg/dL, Near optimal/above optimal 130-159 mg/dL, Borderline high 160-189 mg/dL, High >189 mg/dL, Very high Secondary prevention optimal LDL Cholesterol levels are recommended to be < 70 mg/dL Performed By: #### 5 5454-3 #### [facility] CLIA [id number] [address] [place] [address] [place] Cholesterol in LDL/Cholesterol in HDL [Mass ratio] 1.56 {ratio} Normal <2.54 [facility] Comment on above: Order Comment: Jemima vyas Type: BLOOD SPECIMEN Ordering Facility: [facility] Address: [address] [place] [address] Result Comment: Amanda leonardo: 1. National Cholesterol Education Program ATP III Guideline At-A-Glance Quick Desk Reference: National Heart, Lung, and Blood [place]. National Institutes of Health. 2001: NIH Publication No. 01-3305. 2. An International Atherosclerosis Society position paper: global recommendations for the management of dyslipidemia: executive summary, Atherosclerosis. 2014: 232(2):410-413. Performed By: #### 5 5454-3 #### [facility] CLIA [id number] [address] [place], [place] [address] [address] [place] Cholesterol in VLDL [Mass/Vol] 8 mg/dL Normal <30 [facility] Comment on above: Order Comment: Speci men Type: BLOOD SPECIMEN Ordering Facility: [facility] Address: [address] [place] [address] Performed By: #### 5 5454-3 #### [facility] CLIA [id number] [address] [place], [place] [address] [address] [place] Cholesterol non HDL [Mass/Vol] 103 mg/dL Normal <130 [facility] Comment on above: Order Comment: Jemima vyas Type: BLOOD SPECIMEN Ordering Facility: [facility] Address: [address] [place] [address] Result Comment: <130 mg/dL, Optimal 130-159 mg/dL, Near optimal/above optimal 160-189 mg/dL, Borderline high 190-219 mg/dL, High >219 mg/dL, Very high Secondary prevention optimal non HDL Cholesterol levels are recommended to be <100 mg/dL Performed By: #### 5 5454-3 #### [facility] CLIA [id number] [address] [place] [address] [place] Cholesterol.total/Chol esterol in HDL [Mass ratio] 2.69 {ratio} Normal <5.10 [facility] Comment on above: Order Comment: Jemima vyas Type: BLOOD SPECIMEN Ordering Facility: [facility] Address: [address] [place] [address] Performed By: #### 5 5454-3 #### [facility] CLIA [id number] [address] [place] [address] [place] FASTING TIME 17 hrs Normal [facility] Comment on above: Order Comment: Jose Rafaeli men Type: BLOOD SPECIMEN Ordering Facility: [facility] Address: [address] [place] [address] Performed By: #### 5 5454-3 #### [facility] CLIA [id number] [address] [place] [address] [place] Triglyceride [Mass/Vol] 42 mg/dL Normal <150 [facility] Comment on above: Order Comment: Jose Rafaeli men Type: BLOOD SPECIMEN Ordering Facility: [facility] Address: [address] [place] [address] Result Comment: <150 mg/dL, Normal 150-199 mg/dL, Borderline high 200-499 mg/dL, High >499 mg/dL, Very high Performed By: #### 5 5454-3 #### [facility] CLIA [id number] [address] [place] [address] [place] Progest SerPl-mCncon -31-2 025 Progesterone [Mass/Vol] 0.2 ng/mL Normal See comment [facility] Comment on above: Order Comment: Jose Rafaeli lilliam Type: BLOOD SPECIMEN Ordering Facility: [facility] Address: [address] [place] [address] Result Comment: Mens trual Cycle Progesterone Reference Ranges: Follicular: <1.0 ng/mL Ovulation: <12.1 ng/mL Luteal: 1.8 to 23.9 ng/mL. Progesterone Reference Ranges vary by gestational period: First Trimester: 11.0 to 44.3 ng/mL Second Trimester: 25.4 to 83.3 ng/mL Third Trimester: 58.7 to 214 ng/mL Post menopausal Progesterone: <0.5 ng/mL Reference: 1. Progesterone (Progesterone III) [package insert V 1.0 Vietnamese]. [facility], [place], [place]. May 2015. Performed By: #### C RET1, 2842-3, 2839-9, 3016-3 #### [facility] CLIA [id number] [address] [place] [address] [place] Prolactin SerPl-mCncon 09-04 Prolactin [Mass/Vol] 17.2 ng/mL Normal 4.4-33.8 [facility] Comment on above: Order Comment: Jemima vyas Type: BLOOD SPECIMEN Ordering Facility: [facility] Address: [address] [place] [address] Result Comment: Prol actin test is performed using the [facility] Electrochemiluminescence Immunoassay method. Results obtained with different methods or kits cannot be used interchangeably. Performed By: #### C RET1, 2842-3, 2839-9, 3016-3 #### [facility] CLIA [id number] [address] [place] [address] [place] TSH SerPl-aCncon 09-04-2024 TSH Qn 1.580 m[IU]/L Normal 0.270-4.200 [facility] Comment on above: Order Comment: Specdavid vyas Type: BLOOD SPECIMEN Ordering Facility: [facility] Address: [address] [place] [address] Result Comment: If t he patient is , TSH reference range varies by gestational period: First Trimester (weeks 9-12): 0.180-2.990 mIU/L Second Trimester: 0.110-3.980 mIU/L Third Trimester: 0.480-4.710 mIU/L Suleman Chowdhury et al. A Practical Approach for the Verifications and Determination of Site- and Trimester-Specific Reference Intervals for Thyroid Function tests in . Thyroid, 2019:29:3:412-420. Sebas Zambrano, et al. 2017 Guidelines of the [place] Thyroid Association for the Diagnosis and Management of Thyroid Disease during and the . Thyroid, 2017:27:3:315-389. Performed By: #### C RET1, 2842-3, 2839-9, 3016-3 #### [facility] CLIA [id number] [address] [place] [address] [place] Breast Limited Unilateralon 06-25-2024 Breast Limited Unilateral [facility] Imaging Services [address], [place] [id number] Breast Limited Unilateral MR#: [id number] Acct: [id number] Name: RIDDHI MEDLEY Rep #: [id number] : 1995 F 29 From: Nas infante MD PCP: Dr. Elkin Oliva MD Status: REG CLI Study: Breast Limited Unilateral Date of Exam: Exam# [id number] Ordering Dr: Mahnaz Lovett CNM [id number] STUDY: ULTRASOUND BREAST - RIGHT REASON FOR EXAM: Female, 29 years old. Right breast tenderness. TECHNIQUE: Axial and longitudinal images of the RIGHT breast were performed with a high resolution ultrasound transducer. # OF IMAGES: 26 COMPARISON: Comparison is made with prior mammogram done earlier today. FINDINGS: RIGHT Breast: The lower inner quadrant of the breast was examined with ultrasound. No sonographic abnormality is seen. US/Breast Limited Unilateral IMPRESSION: No sonographic abnormality is seen. ASSESSMENT CATEGORY: BIRADS Category 1: Negative. A letter regarding these results will be sent to the patient by the facility within 30 days. Electronically Signed: Nas Faulkner MD at 15:37 EST , CC: PERFECTO Lovett; Dr. Elkin Oliva MD Registered Public Health Nurse: Signed Normal [facility] DIAG MAMM W/CAD, BILATon DIAG MAMM W/CAD, [facility] Imaging Services [address] [place] [address] DIAG MAMM W/CAD, BILAT MR#: [id number] Acct: [id number] Name: RIDDHI MEDLEY Rep #: [id number] : 1995 F 29 From: Nas infante MD PCP: Dr. Elkin Oliva MD Status: [facility] CLI Study: DIAG MAMM W/CAD, BILAT Date of Exam: 06/25/24 Exam# [id number] Ordering Dr: Mahnaz Lovett [facility] [id number] MAMMOGRAPHY - BILATERAL DIAGNOSTIC REASON FOR EXAM: Female, 29 years old. Right breast tenderness. PERTINENT HISTORY: Grandmother with breast cancer. TECHNIQUE: Digital bilateral breast bogdan (3D mammographic acquisition) in the CC and MLO projections. 2-D mediolateral oblique (MLO) and craniocaudad (CC) views of both breasts were obtained. CAD: Full Field Digital Mammography with Computer Added Detection was performed. COMPARISON: None. Baseline examination. FINDINGS: Breast Composition: The breasts are extremely dense, which lowers the sensitivity of mammography. There are no dominant masses or suspicious calcifications. No other significant abnormalities are identified. BI/DIAG MAMM W/CAD, BILAT IMPRESSION: Negative diagnostic mammogram. With the patient''s history of right breast tenderness, targeted sonographic correlation recommended. ASSESSMENT CATEGORY: BIRADS Category 0: Incomplete. Need additional imaging evaluation. A letter regarding these results will be sent to the patient by the facility within 30 days. Approximately 10% of breast cancers are not detected by mammography. A normal mammogram should not delay biopsy of a clinically suspicious abnormality. Electronically Signed: Nas Faulkner MD at 7:51 EST , CC: PERFECTO Lovett; Dr. Elkin Oliva MD Registered Public Health Nurse: Signed Normal [facility] PAP I-G w/rfx hrHPV-Aptimaon 06-22-2024 ADEQ Comment Normal . [facility] Comment on above: Order Comment: Speci men Comment: [id number] Specimen Comment: Source.............Cervix Specimen Comment: LMP / Prev Treat...[id number] Specimen Comment: No. of containers..01 ThinPrep Vial Result Comment: Sati sfactory for evaluation. No endocervical component is identified. Performed By: #### L 7400.0353, L7000.1800 #### [facility] [address] [place], [place], [address] COMM . Normal . [facility] Comment on above: Order Comment: Speci men Comment: [id number] Specimen Comment: Source.............Cervix Specimen Comment: LMP / Prev Treat...[id number]=[id number] Specimen Comment: No. of containers..01 ThinPrep Vial Performed By: #### L 7400.0353, L7000.1800 #### [facility] [address] [place], [place], [address] COMMENT Comment Normal . [facility] Comment on above: Order Comment: Speci men Comment: [id number] Specimen Comment: Source.............Cervix Specimen Comment: LMP / Prev Treat...[id number] Specimen Comment: No. of containers..01 ThinPrep Vial Result Comment: This liquid based ThinPrep(R) pap test was screened with the use of an image guided system. Performed By: #### L 7400.0353, L7000.1800 #### [facility] [address] [place], [place], [address] DIAG Comment Abnormal . [facility] Comment on above: Order Comment: Speci men Comment: [id number] Specimen Comment: Source.............Cervix Specimen Comment: LMP / Prev Treat...[id number] Specimen Comment: No. of containers..01 ThinPrep Vial Result Comment: EPIT HELIAL CELL ABNORMALITY. ATYPICAL SQUAMOUS CELLS OF UNDETERMINED SIGNIFICANCE (ASC-US). Performed By: #### L 7400.0353, L7000.1800 #### [facility] [address] [place], [place], [address] HPV APTIMA, HR Negative Normal Negative [facility] Comment on above: Order Comment: Speci men Comment: [id number] Specimen Comment: Source.............Cervix Specimen Comment: LMP / Prev Treat...[id number] Specimen Comment: No. of containers..01 ThinPrep Vial Result Comment: This nucleic acid amplification test detects fourteen high- risk HPV types (16,18,31,33,35,39,45,51,52,56,58,59,66,68) without differentiation. Performed at: - [address] [id number] Public Health Teacher: Shira Gardiner MD, Phone: [phone] Performed at: [facility] [employer] [address] [place] [id number] Public Health Teacher: Willis Clark MD, Phone: [phone] Performed at: = - [address], [place] [id number] Public Health Teacher: Shira Gardiner MD, Phone: [phone] Performed By: #### L 7400.0353, L7000.1800 #### [facility] [address] [place], [place], [address] HPV RFLX Comment Normal . [facility] Comment on above: Order Comment: Speci men Comment: [id number] Specimen Comment: Source.............Cervix Specimen Comment: LMP / Prev Treat...WXE=[id number] Specimen Comment: No. of containers..01 ThinPrep Vial Result Comment: See below for HPV testing results. Performed By: #### L 7400.0353, L7000.1800 #### [facility] [address] [place], [place], [address] PAPSMR Comment Normal . [facility] Comment on above: Order Comment: Speci men Comment: [id number] Specimen Comment: Source.............Cervix Specimen Comment: LMP / Prev Treat...PIH=[id number] Specimen Comment: No. of containers..01 ThinPrep Vial Result Comment: The Pap smear is a screening test designed to aid in the detection of premalignant and malignant conditions of the uterine cervix. It is not a diagnostic procedure and should not be used as the sole means of detecting cervical cancer. Both false-positive and false-negative reports do occur. Performed By: #### L 7400.0353, L7000.1800 #### [facility] [address] [place], [address] Path.prov.IDC-9 Comment Normal . [facility] Comment on above: Order Comment: Speci men Comment: [id number] Specimen Comment: Source.............Cervix Specimen Comment: LMP / Prev Treat...NFA=[id number] Specimen Comment: No. of containers..01 ThinPrep Vial Result Comment: R87. 610 Performed By: #### L 7400.0353, L7000.1800 #### [facility] [address] [place], [place], [address] PERFORM Comment Normal . [facility] Comment on above: Order Comment: Speci men Comment: [id number] Specimen Comment: Source.............Cervix Specimen Comment: LMP / Prev Treat...SYS=[id number] Specimen Comment: No. of containers..01 ThinPrep Vial Result Comment: Aamir Lovett, Inspector Of Weights And Measures (ASCP) Performed By: #### L 7400.0353, L7000.1800 #### [facility] [address] [place], [address] RECOMM Comment Abnormal . [facility] Comment on above: Order Comment: Speci men Comment: [id number] Specimen Comment: Source.............Cervix Specimen Comment: LMP / Prev Treat...SIT=[id number] Specimen Comment: No. of containers..01 ThinPrep Vial Result Comment: Sugg est follow up as clinically appropriate. Performed By: #### L 7400.0353, L7000.1800 #### [facility] [address] [place], [place], [address] SIGN Comment Normal . [facility] Comment on above: Order Comment: Speci men Comment: [id number] Specimen Comment: Source.............Cervix Specimen Comment: LMP / Prev Treat...LMR=[id number] Specimen Comment: No. of containers..01 ThinPrep Vial Result Comment: La Cherry MD, Pathologist Performed By: #### L 7400.0353, L7000.1800 #### [facility] [address] [place], [address] Chlamydia/GC SHARI aptimaon CHLAMY,NUC ACID Negative Normal Negative [facility] Comment on above: Performed By: #### L 7400.0353, L7000.1800 #### [facility] [address] [place], [address] GC BY NUC ACID Negative Normal Negative [facility] Comment on above: Result Comment: Perf ormed at: =G - [facility] [address] [place] [id number] Public Health Teacher: Shira Gardiner MD, Phone: [phone] Performed By: #### L 7400.0353, L7000.1800 #### [facility] [address] [place], [place], [address] HSV 1 AND 2 IgGon 06-16-2024 HSV 1 IgG Normal [facility] Comment on above: Result Comment: TEST RESULTS LIMITS HSV 1 IgG, Type Spec Reactive *Abnormal Non-Reactive Please note reference interval change HSV-1 IgG testing performed using the [employer] HSV-1 IgG assay. TESTING PERFORMED AT [facility]. ORIGINAL REPORT ON FILE IN LAB CONTAINS ADDITIONAL TEST SITE INFORMATION. Performed By: #### L 3890.6005, L3400.1610, L509.8000 ####[facility] [address] [place], [address] HSV 2 IgG Normal [facility] Comment on above: Result Comment: TEST RESULTS LIMITS HSV 2 IgG, Type Spec Non Reactive Non-Reactive Please note reference interval change Current guidelines and recommendations do not recommend routine screening for HSV-2 in asymptomatic individuals, including those that are . The detection of HSV-2 IgG antibodies in a single sample indicates previous exposure to HSV-2 but does not give information as to the site of HSV infection or the timing of exposure. The predictive value of positive and negative results depends on the population's prevalence and the pretest likelihood of HSV-2. HSV-2 IgG testing performed using the [employer] HSV-2 IgG assay. Performed at: [address] [id number] Public Health Teacher: Edvin Salgado PhD, Phone: [phone] TESTING PERFORMED AT [facility]. ORIGINAL REPORT ON FILE IN LAB CONTAINS ADDITIONAL TEST SITE INFORMATION. Performed By: #### L 3890.6005, L3400.1610, L509.8000 ####[facility] [address] [place], [address] HIV - WCHon 06-15-2024 HIV Non-Reactive Normal Nonreactive [facility] Comment on above: Performed By: #### L 3890.6005, L3400.1610, L509.8000 #### [facility] [address] [place], [address] L509.8000on 06-15-2024 Syphilis Abs Non-Reactive Normal [facility] Comment on above: Performed By: #### L 3890.6005, L3400.1610, L509.8000 #### [facility] [address] [place], [address] 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 Single Spindle Office Visit Reporton 06-15-2024 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 Single Spindle Office Visit Report [facility] [address], [address] [place] [address] OFFICE VISIT Date of Service: 06/15/24 MR#: [id number] Acct: [id number] Name: RIDDHI MEDLEY Rep #: [id number] : 1995 Provider: PERFECTO Anderson ams Age/Sex: 29/F Location: 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: No Is patient in pain?: No Allergies amitriptyline Adverse Reaction (Intermediate, Verified 06/15/24 09:34) confusion Medications ???Medication ???Instructions ???Recorded ???Confirmed ???Type sjznjnw-cegjofwwjziyj-rrp feine 250 1 tab PO Q6H PRN Migraine Headache 08/30/22 09/26/23 History mg-250 mg-65 mg tablet (Excedrin Migraine) Lactobacillus acidophilus 250 500 mmu cells PO DAILY 09/18/23 09/26/23 History million cell capsule (Probiotic Acidophilus) cephalexin 250 mg capsule 250 mg PO QHS 09/18/23 09/26/23 History cyclobenzaprine 5 mg tablet 5 mg PO TID PRN SPASMS 09/18/23 09/26/23 History d-mannose 500 mg capsule 1,000 mg PO DAILY 09/18/23 09/26/23 History etonogestrel 68 mg subdermal 1 implant subdermal DAILY 09/18/23 09/18/23 History implant (Nexplanon) mirabegron 25 mg tablet,extended 50 mg PO QHS 09/18/23 09/26/23 History release 24 hr (Myrbetriq) nitrofurantoin 100 mg PO BID interstitial cystisis 06/15/24 06/15/24 History monohydrate/macrocrystals 100 mg capsule (Macrobid) Is last menstrual period known: Yes Last Menstrual Period: 06/10/24 Patient : No Control [facility] History Lesion of cervix Low grade squamous intraepithelial dysplasia Syncope Gastric reflux Constipation History of GI bleed PTSD (post-traumatic stress disorder) Marijuana use Anemia Easy bruising Vapes nicotine containing substance Bladder ulcer Dietary restriction Migraine Gestational hypertension History of depression History of anxiety Surgical History History of cystoscopy History of cystoscopy History of cystoscopy delivery delivered Family History Grandmother Diabetes Breast cancer Grandfather Diabetes Jckze-9-dedbjaqracq deficiency Social History (Updated 06/15/24 @ 09:38 by Patti Brizuela RN) Smoking Status: Current every day smoker tobacco type: e-cigarettes Electronic Cigarette Use: with nicotine alcohol intake: never substance use type: does not use caffeine: Yes (rarely) what type of physical activity do you participate in: walking and other details: 20,000 steps per day seatbelt use: always do you feel safe at home: Yes additional social history: Boyfriend-Gerardo Goodson Patient works at [employer] History 2 Elective abortions Hx Para 1 Spontaneous abortions 1 Hx # Term Pregnancies Ectopic pregnancies Hx # Pregnancies Multiple births # of living children 1 Past Pregnancies Del. Date Name GA/Weeks Outcome Route Bth Weight Gen Labor Lgth Anesthesia Del Locatn Provider FOB 06/06/20 Beck 38 live - full term Male epidural [facility] Delivery Date: 06/06/20 Last Updated by: Linda Valenzuela IOL GHTN; cord prolapse STAT [facility] HPI Encounter for routine gynecological examination Details: RIDDHI MEDLEY is a 29 year old who presents for annual exam. Nexplanon for contraception. doing well. Last PAP: 2022 History of abnormal PAP: colp last year Last mammogram: AGe 40 History of abnormal mammogram: Colon cancer screening: AGe 45 Other preventative health care screenings: PCP Female Reproductive History Last Menstrual Period: 06/10/24 Cycle Length: 21-35 Bleeding Duration: 4 Questions: metorrhagia: No, sexually active: Yes, dyspareunia: No and PCB: No ROS Const Constitutional: Reports system reviewed and no additional complaints, except as documented Cardio Card: Reports system reviewed and no additional complaints, except as documented Resp Resp: Reports system reviewed and no additional complaints, except as documented GI GI: Reports system reviewed and no additional complaints, except as documented : Reports system reviewed and no additional complaints, except as documented; Denies difficulty voiding, dysuria or urinary frequency Skin Skin/Breast: Reports system reviewed and no additional complaints, except as documented Neuro Neuro: Reports system reviewed and no additional complaints, except as documented Psych Psych: Reports system reviewed and no additional complaints, except as documented; (more content not included)... Normal [facility] CT Abd/Pelvis W/WO Contrasto n 05-06-2024 CT Abd/Pelvis W/WO Contrast [facility] Imaging Services [address] [place] [address] CT Abd/Pelvis W/WO Contrast MR#: [id number] Acct: [id number] Name: RIDDHI MEDLEY Rep #: [id number] : 1995 F 29 From: Cirilo garcia MD PCP: Dr. Elkin Oliva MD Status: REG CLI Study: CT Abd/Pelvis W/WO Contrast Date of Exam: 09/[birth year] Exam# [id number] Ordering Dr: Emma Schilling MD [id number] STUDY: CT ABDOMEN AND PELVIS WITH AND WITHOUT CONTRAST REASON FOR EXAM: Female, 29 years old. GROSS HEMATURIA RADIATION DOSAGE (If Supplied By Facility): CTDIvol = ( 11.24 ) mGy, DLP = ( 996.69 ) mGycm TECHNIQUE: Transaxial images were obtained from the dome of the diaphragm to the symphysis pubis without oral contrast. IV 100mL Isovue-300 was administered. Sagittal and coronal images were reconstructed. Individualized dose optimization techniques were used for this CT. COMPARISON: [08/28/2023. FINDINGS: The visualized lung bases are unremarkable. The visualized portions of the heart are within normal limits. Normal liver. Normal gallbladder and extrahepatic biliary system. Normal spleen. Normal pancreas. Normal bilateral adrenal glands. Normal right kidney. Normal left kidney. Evaluation of the GI tract is limited by absence of oral contrast. Cannot exclude stomach wall thickening. No dilated loops of bowel or evidence for obstruction. Cannot exclude segmental thickening of the andino of the small or large bowel. Cannot exclude enteritis or colitis. Moderate diffuse fecal retention. No evidence for appendicitis. Normal abdominal aorta. Normal inferior vena cava. Normal retroperitoneum. Bladder has a normal contour. However there is a diffuse thickening of bladder wall consistent with possible cystitis. Correlate with urinalysis. Normal visualized uterus. Normal abdominal wall. Normal osseous structures. CT/CT Abd/Pelvis W/WO Contrast IMPRESSION: Suggestion of bladder wall thickening. Findings could be related to cystitis. No other definite acute or significant abnormality seen. Electronically Signed: Cirilo Mccabe MD at 16:04 EDT , CC: Dr. Emma Schilling MD; Dr. Elkin Oliva MD Registered Public Health Nurse: Signed Normal [facility] CNOVon 01-14-2024 CNOV Office Visit (PSWSTR ) ----- RIDDHI MEDLEY ([id number]) 1995 F Date Time Provider Department 01/14/24 4:00 PM CATHERINE MARIA PSWSTR During your visit today, we recorded the following information about you: Catherine Maria, CONFERENCE TRANSLATOR.[facility] 01/14/2024 5:06 PM Signed Patient did not come in for her initial visit scheduled with the provider today. Referring Provider: ROD ROSALES [[id number]] Allergies As of Date: 01/14/2024 Noted Allergy Reaction BEE STING 01/29/2011 4 - Hives 7 - Swelling BEES 09/28/2015 7 - Swelling 12 - Shortness of Breath ELAVIL (AMITRIPTYLINE) 03/07/2023 5 - Intolerance Date Reviewed: 01/06/2024 Reviewed by: Nova Mcclelland LPN - Fully Assessed Reason for Visit: No Show [1558] Primary Visit Diagnosis:NO SHOW Prescriptions as of 01/14/2024 - cephALEXin (KEFLEX) 250 mg capsule Take 1 capsule by mouth daily at bedtime. - MYRBETRIQ 50 mg Tb24 Take 100 mg by mouth once daily. - cyclobenzaprine (FLEXERIL) 5 mg tablet Take 5 mg by mouth daily at bedtime. - rizatriptan 5 mg disintegrating tablet Take 1 tablet (5 mg) by mouth as needed. May repeat in 2 hours if needed. - ondansetron orally disintegrating (ZOFRAN ODT) 4 mg disintegrating tablet Take 1 tablet by mouth every 6 hours as needed for nausea/vomiting. Problem List As Of Date 01/14/2024 Noted Resolved History of urinary tract infection [Z87.440] 04/11/2022 Interstitial cystitis [N30.10] 06/06/2020 Abnormal uterine bleeding [N93.9] 04/23/2022 Pelvic and perineal pain [R10.2] 12/07/2021 History of headache [Z87.898] 11/08/2022 PTSD (post-traumatic stress disorder) [F43.10] 11/08/2022 Encounter Status:Closed by CATHERINE MARIA on 01/14/24 [facility] CNOVon 01-06-2024 CNOV Office Visit (INTMWS ) ----- RIDDHI MEDLEY ([id number]) 1995 F Date Time Provider Department 01/06/24 4:20 PM ELKIN OLIVA INTMWS During your visit today, we recorded the following information about you: Temperature Pulse Respiration Blood pressure 98.7 degrees 109/minute 18/minute 96/62 Weight Last Period 48.4 kg 01/03/24 Elkin Oliva MD 02/06/2024 10:29 PM Signed This note was created using NoteWriter. Subjective Riddhi Medley is a 28 year old female. Patient presents with: F/U 6 months SUBJECTIVE: Riddhi Medley is a 28 year old year old lady here today for 6 month follow up appointment for review of medical conditions. No acute issues to address. Following with with Dr. Worthy for migraines. not sure when was to have follow up appointment. Did okay for a few months after stopping Zonegran, but daily migraines past 2 months now. Does have some rizatriptan but insurance only covered 9, not 12 pills per RX. PHQ-9 11/06/2022 11/08/2022 01/22/2023 01/05/2024 PHQ-9 Scores Little interest or pleasure in doing things Nearly every day Nearly every day More than half the days Several days Feeling down, depressed, or hopeless More than half the days More than half the days Several days Several days Trouble falling or staying asleep, or sleeping too much More than half the days - Nearly every day More than half the days Feeling tired or having little energy Nearly every day - Nearly every day More than half the days Poor appetite or overeating Nearly every day - Nearly every day More than half the days Feeling bad about yourself - or that you are a failure or have let yourself or your family down Nearly every day - Nearly every day Nearly every day Trouble concentrating on things, such as reading the newspaper or watching television Several days - Several days More than half the days Moving or speaking so slowly that other people could have noticed. Or the opposite - being so fidgety or restless that you have been moving around a lot more than usual Several days - Several days Several days Thoughts that you would be better off , or of hurting yourself in some way Several days - Not at all Not at all PHQ-9 Score 19 - 17 14 Behavioral Health Screening PHQ-9 Score: 14 (Moderate Depression) Recommendation: no further intervention at this time Noted off SSRIs. Some improvement in PHQ9 score since last check. PAST MEDICAL HISTORY Diagnosis Date History of headache Interstitial cystitis PTSD (post-traumatic stress disorder) Recurrent UTI (urinary tract infection) Current Outpatient Medications Medication Sig MYRBETRIQ 50 mg Tb24 Take 100 mg by mouth once daily. cyclobenzaprine (FLEXERIL) 5 mg tablet Take 5 mg by mouth daily at bedtime. rizatriptan 5 mg disintegrating tablet Take 1 tablet (5 mg) by mouth as needed. May repeat in 2 hours if needed. ondansetron orally disintegrating (ZOFRAN ODT) 4 mg disintegrating tablet Take 1 tablet by mouth every 6 hours as needed for nausea/vomiting. cephALEXin (KEFLEX) 250 mg capsule Take 1 capsule by mouth daily at bedtime. No current facility-administered medications for this visit. Review of Systems Objective BP 96/62 Pulse 109 Temp 37.1 ?C (98.7 ?F) Resp 18 Wt 48.4 kg (106 lb 11.2 oz) LMP 01/03/2024 (Approximate) SpO2 99% BMI 19.52 kg/m? Physical Exam Constitutional: Appearance: Normal appearance. HENT: Head: Normocephalic. Eyes: Conjunctiva/sclera: Conjunctivae normal. Cardiovascular: Rate and Rhythm: Normal rate and regular rhythm. Heart sounds: Normal heart sounds. Pulmonary: Effort: Pulmonary effort is normal. Breath sounds: Normal breath sounds. Musculoskeletal: Right lower leg: No edema. Left [...] and without status migrainosus, not intractable G43.109 With follow up with Dr. Worthy. Noted daily headaches. Some days worse than others 2. Muscle spasm M62.838 cyclobenzaprine (FLEXERIL) 10 mg tablet RX from Dr. Schilling now. 3. Depression--PHQ9 score a little better compared to before. Continue working on managing migraines and urology issues. Further evaluation and treatment as needed Above issues addressed with patient. Patient involved in shared decision making for management of medical issues. History and medications reviewed. Epic updated as needed Refills and/or prescriptions taken care of and meds adjusted as indicated after reviewed history, exam and labs. Health Maintenance reviewed (more content not included)... Normal [facility] Sonny 11-15-2023 YOHANNES Telephone (INTMWS) ----- RIDDHI MEDLEY A ([id number]) 1995 F Date Time Provider Department 11/15/23 ELKIN OLIVA During your visit today, we recorded the following information about you: Loretta Pham LPN 11/15/2023 10:39 AM Signed Patient calling requesting a referral to Psychiatry in the building please. Pending not sure which on is needed. Please advise Rod Rosales APRN.RADIO SURVEY WORKER 11/15/2023 4:47 PM Signed Okay, please schedule. Assuming this is for PTSD. Allergies As of Date: 11/15/2023 Noted Allergy Reaction BEE STING 01/29/2011 4 - Hives 7 - Swelling BEES 09/28/2015 7 - Swelling 12 - Shortness of Breath ELAVIL (AMITRIPTYLINE) 03/07/2023 5 - Intolerance Date Reviewed: 03/25/2023 Reviewed by: Nova Mcclelland LPN - Fully Assessed Reason for Visit: requesting referral [Other] Primary Visit Diagnosis:PTSD (post-traumatic stress disorder) [F43.10] Order(s):CONSULT TO PSYCHIATRY [9035] Order #: [id number]: 1 FUTURE Prescriptions as of 11/15/2023 - rizatriptan 5 mg disintegrating tablet Take 1 tablet (5 mg) by mouth as needed. May repeat in 2 hours if needed. - cyclobenzaprine (FLEXERIL) 10 mg tablet Take 1 tablet by mouth twice daily as needed for muscle spasm. - zonisamide (ZONEGRAN) 25 mg capsule Take 1 capsule by mouth once daily. - cephALEXin (KEFLEX) 500 mg capsule TAKE 1 CAPSULE BY MOUTH EVERY DAY AT BEDTIME - vibegron (GEMTESA) 75 mg tablet - ondansetron orally disintegrating (ZOFRAN ODT) 4 mg disintegrating tablet Take 1 tablet by mouth every 6 hours as needed for nausea/vomiting. - sertraline (ZOLOFT) 25 mg tablet Take 1 tablet by mouth once daily. for PTSD Problem List As Of Date 11/15/2023 Noted Resolved History of urinary tract infection [Z87.440] 04/11/2022 Interstitial cystitis [N30.10] 06/06/2020 Abnormal uterine bleeding [N93.9] 04/23/2022 Pelvic and perineal pain [R10.2] 12/07/2021 History of headache [Z87.898] 11/08/2022 PTSD (post-traumatic stress disorder) [F43.10] 11/08/2022 Encounter Status:Closed by ROD ROSALES on 11/15/23 Normal [facility] Laboratory - Chemistry and C hemistry - challengeOrdered By: Miguelangel Asher on 09-26-2023 HCG ( test) Ql (U) Negative [facility] Comment on above: Very dilute urine sp ecimens, as indicated by a low specificgravity, may not contain regional sales representative levels of hCG. If is still suspected, a first morning urinespecimen should be collected 48 hours later and tested. Absolute lymphocyte countOrd ered By: ED PROVIDER on 08-28-2023 Lymphocytes Auto (Unsp spec) [#/Vol] 2.35 10*3/uL 0.83-4.51 [facility] Automated lymphocyte count a s percentage of total leukocytesOrdered By: ED PROVIDER on 08-28-2023 Lymphocytes/100 WBC Auto (Unsp spec) 33.4 % 19-41 [facility] Basophil percentageOrdered B y: Nohelia Lawson on 08-28-2023 Basophil percentage 25-50 SEEN /hpf 0-5 [facility] Basophil percentageOrdered B y: ED PROVIDER on 08-28-2023 Basophils/100 WBC (Bld) 0.6 % 0-1 [facility] Bilirubin [Mass/Vol] 0.30 mg/dL 0.20-1.00 [facility] Comment on above: For patients on eltr ombopag therapy, use of Dimension [place] TBIL is not recommended. Chloride [Moles/Vol] 111 mmol/L 98-107 [facility] Eosinophils/100 WBC (Bld) 2.6 % 0-5 [facility] Glucose [Mass/Vol] 81 mg/dL 74-106 [facility] Hemoglobin (Bld) [Mass/Vol] 13.3 g/dL 12.0-15.0 [facility] Monocytes/100 WBC (Bld) 6.3 % 0-10 [facility] Neutrophils (Bld) [#/Vol] 4.0 10*3/uL 2.0-7.7 [facility] Neutrophils/100 WBC (Bld) 56.8 % 47-70 [facility] Potassium [Moles/Vol] 4.2 mmol/L 3.5-5.1 [facility] Protein [Mass/Vol] 7.2 g/dL 6.4-8.2 [facility] Sodium [Moles/Vol] 142 mmol/L 136-145 [facility] WBC (Bld) [#/Vol] 7.0 10*3/uL 4.4-11.0 [facility] Bilirubin Test strip Ql (U)O rdered By: Nohelia Lawson on 08-28-2023 Bilirubin Ql (U) Negative Negative [facility] Determination of erythrocyte mean corpuscular volume (MCV)Ordered By: ED PROVIDER on 08-28-2023 MCV (RBC) [Entitic vol] 89.8 fL 81-99 [facility] Erythrocyte distribution wid th ratioOrdered By: ED PROVIDER on 08-28-2023 Erythrocyte distribution width (RBC) [Ratio] 12.0 % 11.6-14.6 [facility] Erythrocyte distribution wid th standard deviationOrdered By: ED PROVIDER on 08-28-2023 Erythrocyte distribution width (RBC) [Entitic vol] 39.4 fL 35.1-43.9 [facility] Hematocrit Auto (Bld) [Volum e fraction]Ordered By: ED PROVIDER on 08-28-2023 Hematocrit (Bld) [Volume fraction] 40.5 % 37-47 [facility] Immature granulocytes/100 WB C Auto (Bld)Ordered By: ED PROVIDER on 08-28-2023 Immature granulocytes/100 WBC (Bld) 0.300 % 0.0-0.9 [facility] Comment on above: IG% - Immature Granu locytes (promyelocytes, myelocytes and metamyelocytes) > 1% indicates that a LEFT SHIFT is Present. Ketones Test strip Ql (U)Ord ered By: Nohelia Lawson on 08-28-2023 Ketones Ql (U) Negative Negative [facility] Laboratory - Chemistry and C hemistry - challengeOrdered By: ED PROVIDER on 08-28-2023 Albumin/Globulin [Mass ratio] 1.1 {ratio} 0.9-2.4 [facility] ALP [Catalytic activity/Vol] 69 U/L 45-117 [facility] ALT [Catalytic activity/Vol] 17 U/L 13-56 [facility] CO2 [Moles/Vol] 28.0 mmol/L 21.0-32.0 [facility] Globulin (S) [Mass/Vol] 3.4 g/dL 2.2-4.2 [facility] Urea nitrogen/Creatinine [Mass ratio] 14.3 mg/mg 10-20 [facility] Laboratory - Hematology and Cell countsOrdered By: ED PROVIDER on 08-28-2023 MCH (RBC) [Entitic mass] 29.5 pg 27.0-32.0 [facility] MCHC (RBC) [Mass/Vol] 32.8 g/dL 32-36 [facility] Nucleated RBC/100 WBC (Bld) [Ratio] 0 % 0-5 [facility] Platelets (Bld) [#/Vol] 295 10*3/uL 150-450 [facility] Mucus LM Ql (Urine sed)Order ed By: Nohelia Lawson on 08-28-2023 Mucus Ql (Urine sed) 0 SEEN /hpf [facility] Nitrite Test strip Ql (U)Ord ered By: Nohelia Lawson on 08-28-2023 Nitrite Ql (U) Negative Negative [facility] No Panel InformationOrdered By: Nohelia Lawson on 08-28-2023 Urine RBC 5-10 SEEN /hpf 0-5 [facility] No Panel InformationOrdered By: ED PROVIDER on 08-28-2023 Estimated Creatinine Clearance Calc 74.92 ml/min [facility] Estimated GFR (MDRD) Amer 104 mL/min >60 [facility] Comment on above: GFR Calc Estimated GFR (MDRD) Non-Af Amer 86 mL/min >60 [facility] Comment on above: Non- GFR Calc Platelet mean volume Jose-Ec ker (Bld) [Entitic vol]Ordered By: ED PROVIDER on 08-28-2023 Platelet mean volume (Bld) [Entitic vol] 10.3 fL 6.2-12.0 [facility] Protein Test strip Ql (U)Ord ered By: Nohelia Lawson on 08-28-2023 Protein Ql (U) 15 mg/dl Negative [facility] RBC Auto (Bld) [#/Vol]Ordere d By: ED PROVIDER on 08-28-2023 RBC (Bld) [#/Vol] 4.51 10*6/uL 4.2-5.4 [facility] Serum or plasma calcium tono urement (mass/volume)Ordered By: ED PROVIDER on 08-28-2023 Calcium [Mass/Vol] 9.2 mg/dL 8.5-10.1 [facility] Serum or plasma choriogonado tropin detectionOrdered By: ED PROVIDER on 08-28-2023 HCG ( test) Ql Negative [facility] Serum or plasma creatinine m easurement (mass/volume)Ordered By: ED PROVIDER on 08-28-2023 Creatinine [Mass/Vol] 0.84 mg/dL 0.55-1.02 [facility] Comment on above: The validity of the calculated GFR & GFRAA in patients over 70 years has not been determined. Clinical correlation is essential. Serum or plasma urea nitroge n measurement (mass/volume)Ordered By: ED PROVIDER on 08-28-2023 Urea nitrogen [Mass/Vol] 12 mg/dL 7-18 [facility] Squamous epithelial cells de tection in urine sediment by light microscopyOrdered By: Nohelia Lawson on 08-28-2023 Epithelial cells.squamous LM Ql (Urine sed) 5-10 SEEN /hpf 5-10 [facility] Thin prep Papanicolaou smear with manual screeningOrdered By: ED PROVIDER on 08-28-2023 Thin prep Papanicolaou smear with manual screening 3.8 g/dL 3.2-5.0 [facility] Thin prep Papanicolaou smear with manual screening 13 U/L 15-37 [facility] Thin prep Papanicolaou smear with manual screening 3 5-15 [facility] Urine blood detectionOrdered By: Nohelia Lawson on 08-28-2023 RBC Ql (U) 150 /ul Negative [facility] Urine clarityOrdered By: Marialuisa Lawson on 08-28-2023 Clarity (U) Sl. Cloudy Clear [facility] Urine color determinationOrd ered By: Nohelia Lawson on 08-28-2023 Color (U) Yellow Yellow [facility] Urine glucose detectionOrder ed By: Nohelia Lawson on 08-28-2023 Glucose Ql (U) Normal mg/dl Normal [facility] Urine leukocyte esterase det ection by dipstickOrdered By: Nohelia Lawson on 08-28-2023 Leukocyte esterase Test strip Ql (U) 100 /ul Negative [facility] Urine pHOrdered By: Nohelia Lawson on 08-28-2023 pH (U) 6.0 [pH] 5.0 - 8.0 [facility] Urine sediment bacteria coun t by microscopy (number/high power field)Ordered By: Nohelia Lawson on 08-28-2023 Bacteria LM.HPF (Urine sed) [#/Area] RARE /hpf None Seen [facility] Urine specific gravity measu rementOrdered By: Nohelia Lawson on 08-28-2023 Specific gravity (U) [Rel density] 1.025 1.002-1.030 [facility] Urine urobilinogen measureme ntOrdered By: Nohelia Lawson on 08-28-2023 Urobilinogen Ql (U) Normal mg/dl Normal [facility] Absolute lymphocyte countOrd ered By: Lolly Judge on 07-19-2023 Lymphocytes Auto (Unsp spec) [#/Vol] 2.52 10*3/uL 0.83-4.51 [facility] Basophil percentageOrdered B y: Lolly Judge on 07-19-2023 Basophil percentage 25-50 SEEN /hpf 0-5 [facility] Basophils/100 WBC (Bld) 0.6 % 0-1 [facility] Chloride [Moles/Vol] 108 mmol/L 98-107 [facility] Eosinophils/100 WBC (Bld) 0.8 % 0-5 [facility] Glucose [Mass/Vol] 92 mg/dL 74-106 [facility] Neutrophils (Bld) [#/Vol] 4.2 10*3/uL 2.0-7.7 [facility] Neutrophils/100 WBC (Bld) 58.3 % 47-70 [facility] Potassium [Moles/Vol] 3.8 mmol/L 3.5-5.1 [facility] Sodium [Moles/Vol] 139 mmol/L 136-145 [facility] WBC (Bld) [#/Vol] 7.3 10*3/uL 4.4-11.0 [facility] Beta hCG serum qualOrdered B y: Rema Alfie on 07-19-2023 Beta HCG ( test) Ql Negative 0-9 Nonpreg [facility] Bilirubin Test strip Ql (U)O rdered By: Lolly Judge on 07-19-2023 Bilirubin Ql (U) Negative Negative [facility] Blood erythrocytes count (nu mber/volume)Ordered By: Lolly Judge on 07-19-2023 RBC (Bld) [#/Vol] 4.38 10*6/uL 4.2-5.4 [facility] Blood hemoglobin measurement (mass/volume)Ordered By: Lolly Judge on 07-19-2023 Hemoglobin (Bld) [Mass/Vol] 13.2 g/dL 12.0-15.0 [facility] Blood lymphocytes/100 leukoc ytesOrdered By: Lolly Judge on 07-19-2023 Lymphocytes/100 WBC (Bld) 34.7 % 19-41 [facility] Blood monocytes/100 leukocyt esOrdered By: Lolly Judge on 07-19-2023 Monocytes/100 WBC (Bld) 5.5 % 0-10 [facility] Blood platelet mean volumeOr dered By: Lolly Judge on 07-19-2023 Platelet mean volume (Bld) [Entitic vol] 10.8 fL 6.2-12.0 [facility] Culture, urineOrdered By: Amber Judge on 07-19-2023 Bacteria identified Cx Nom (U) Escherichia coli [facility] Determination of erythrocyte mean corpuscular volume (MCV)Ordered By: Lolly Judge on 07-19-2023 MCV (RBC) [Entitic vol] 90.9 fL 81-99 [facility] Erythrocyte sedimentation ra teOrdered By: Lolly Judge on 07-19-2023 ESR (Bld) [Velocity] 5 mm/h 0-30 [facility] Hematocrit Auto (Bld) [Volum e fraction]Ordered By: Lolly Judge on 07-19-2023 Hematocrit (Bld) [Volume fraction] 39.8 % 37-47 [facility] Ketones Test strip Ql (U)Ord ered By: Lolly Judge on 07-19-2023 Ketones Ql (U) 5 mg/dl Negative [facility] Laboratory - Chemistry and C hemistry - challengeOrdered By: Lolly Judge on 07-19-2023 CO2 [Moles/Vol] 28.0 mmol/L 21.0-32.0 [facility] Urea nitrogen/Creatinine [Mass ratio] 11.9 mg/mg 10-20 [facility] Laboratory - Hematology and Cell countsOrdered By: Lolly Judge on 07-19-2023 Erythrocyte distribution width (RBC) [Entitic vol] 39.9 fL 35.1-43.9 [facility] Erythrocyte distribution width (RBC) [Ratio] 12.0 % 11.6-14.6 [facility] Immature granulocytes/100 WBC (Bld) 0.100 % 0.0-0.9 [facility] Comment on above: IG% - Immature Granu locytes (promyelocytes, myelocytes and metamyelocytes) > 1% indicates that a LEFT SHIFT is Present. MCH (RBC) [Entitic mass] 30.1 pg 27.0-32.0 [facility] Nucleated RBC/100 WBC (Bld) [Ratio] 0 % 0-5 [facility] MCHC Auto (RBC) [Mass/Vol]Or dered By: Lolly Judge on 07-19-2023 MCHC (RBC) [Mass/Vol] 33.2 g/dL 32-36 [facility] Mucus LM Ql (Urine sed)Order ed By: Lolly Judge on 07-19-2023 Mucus Ql (Urine sed) 0 SEEN /hpf [facility] Nitrite Test strip Ql (U)Ord ered By: Lolly Judge on 07-19-2023 Nitrite Ql (U) Positive Negative [facility] No Panel InformationOrdered By: Lolly Judge on 07-19-2023 Estimated Creatinine Clearance Calc 64.67 ml/min [facility] Estimated GFR (MDRD) Amer 94 mL/min >60 [facility] Comment on above: GFR Calc Estimated GFR (MDRD) Non-Af Amer 77 mL/min >60 [facility] Comment on above: Non- GFR Calc Platelets bldOrdered By: Rema Judge on 07-19-2023 Platelets (Bld) [#/Vol] 268 10*3/uL 150-450 [facility] Protein Test strip Ql (U)Ord ered By: Remus Judge on 07-19-2023 Protein Ql (U) 100 mg/dl Negative [facility] Serum or plasma calcium tono urement (mass/volume)Ordered By: Remus Judge on 07-19-2023 Calcium [Mass/Vol] 9.5 mg/dL 8.5-10.1 [facility] Serum or plasma creatinine m easurement (mass/volume)Ordered By: Remus Judge on 07-19-2023 Creatinine [Mass/Vol] 0.92 mg/dL 0.55-1.02 [facility] Comment on above: The validity of the calculated GFR & GFRAA in patients over 70 years has not been determined. Clinical correlation is essential. Serum or plasma urea nitroge n measurement (mass/volume)Ordered By: Lolly Judge on 07-19-2023 Urea nitrogen [Mass/Vol] 11 mg/dL 7-18 [facility] Squamous epithelial cells de tection in urine sediment by light microscopyOrdered By: Lolly Judge on 07-19-2023 Epithelial cells.squamous LM Ql (Urine sed) 10-25 SEEN /hpf 5-10 [facility] Thin prep Papanicolaou smear with manual screeningOrdered By: Lolly Judge on 07-19-2023 Thin prep Papanicolaou smear with manual screening 3 5-15 [facility] Urine blood detectionOrdered By: Lolly Judge on 07-19-2023 RBC Ql (U) 250 /ul Negative [facility] RBC Ql (U) 25-50 SEEN /hpf 0-5 [facility] Urine clarityOrdered By: Rem Alfie on 07-19-2023 Clarity (U) Cloudy Clear [facility] Urine color determinationOrd ered By: Lolly Judge on 07-19-2023 Color (U) Yellow Yellow [facility] Urine glucose detectionOrder ed By: Lolly Judge on 07-19-2023 Glucose Ql (U) Normal mg/dl Normal [facility] Urine leukocyte esterase det ection by dipstickOrdered By: Lolly Judge on 07-19-2023 Leukocyte esterase Test strip Ql (U) 500 /ul Negative [facility] Urine pHOrdered By: Lolly Un gur on 07-19-2023 pH (U) 6.0 [pH] 5.0 - 8.0 [facility] Urine sediment bacteria coun t by microscopy (number/high power field)Ordered By: Lolly Judge on 07-19-2023 Bacteria LM.HPF (Urine sed) [#/Area] 3 /[HPF] None Seen [facility] Urine specific gravity measu rementOrdered By: Lolly Judge on 07-19-2023 Specific gravity (U) [Rel density] 1.020 1.002-1.030 [facility] Urobilinogen Auto test strip Ql (U)Ordered By: Lolly Judge on 07-19-2023 Urobilinogen Ql (U) Normal mg/dl Normal [facility] Cervical or vagninal specime n microscopic examination by cytology stain (reported asOrdered By: Mahnaz Lovett on 06-14-2023 Cytology report Cyto stain Doc (Cvx/Vag) Comment . [facility] Comment on above: The Pap smear is a s creening test designed to aid in thedetection of premalignant and malignant conditions of theuterine cervix. It is not a diagnostic procedure andshould not be used as the sole means of detecting cervicalcancer. Both false-positive and false-negative reports dooccur. Chlamydia trachomatis rRNA d etection by probe and target amplification methodOrdered By: Mahnaz Lovett on 06-14-2023 C. trachomatis rRNA SHARI+probe Ql (Unsp spec) Negative Negative [facility] Culture, urineOrdered By: Aleksey Lovett on 06-14-2023 Bacteria identified Cx Nom (U) Escherichia coli [facility] Laboratory - Chemistry and C hemistry - challengeon 06-14-2023 Bilirubin Ql (U) Negative [facility] Glucose Ql (U) Negative [facility] Ketones Ql (U) Trace (5) [facility] pH (U) 5.0 [pH] [facility] Specific gravity (U) [Rel density] 1.030 [facility] Urobilinogen (U) [Mass/Vol] Negative [facility] Laboratory - CytologyOrdered By: Mahnaz Lovett on 06-14-2023 Veterinarian Laboratory Animal Care Cyto stain Nom (Cvx/Vag) [ID] Comment . [facility] Comment on above: Ada Guadarrama, Cyto technologist (ASCP) Pathologist Cyto stain Nom (Cvx/Vag) [ID] Comment . [facility] Comment on above: Sue Alcocer MD, P athologist Laboratory - Hematology and Cell countson 06-14-2023 Hemoglobin Ql (U) Large [facility] Laboratory - Microbiology an d Antimicrobial susceptibilityOrdered By: Mahnaz Lovett on 06-14-2023 N. gonorrhoeae DNA SHARI+probe Ql (Unsp spec) Negative Negative [facility] Comment on above: Performed at: =G - [facility] [address] [id number] Director: Shira Gardiner MD, Phone: [phone] Laboratory - Miscellaneous t estsOrdered By: Mahnaz Lovett on 06-14-2023 Service comment (Unsp spec) [Interp] Comment . [facility] Comment on above: This liquid based Th inPrep(R) pap test was screened withthe use of an image guided system. Service comment (Unsp spec) [Interp] . . [facility] Laboratory - Specimen inform ationon 06-14-2023 Clarity (U) Cloudy [facility] Color (U) DARK YELLOW [facility] Laboratory - Urinalysison Nitrite Ql (U) Positive [facility] Protein Ql (U) Positive [facility] No Panel InformationOrdered By: Mahnaz Lovett on 06-14-2023 Human Papillomavirus Screen Comment . [facility] Comment on above: The HPV DNA reflex c riteria were not met with this specimenresult therefore, no HPV testing was performed.Performed at: [facility] - [facility] [address] [id number] Director: Shira Gardiner MD, Phone: [phone] Pathology report final diagnosis Narrative Comment . [facility] Comment on above: EPITHELIAL CELL ABNO RMALITY.LOW GRADE SQUAMOUS INTRAEPITHELIAL LESION (LSIL). R87.612 No Panel Informationon 06-14 Urine Leukocytes Positive [facility] Urine Non-Hemolyzed Blood Large [facility] Final Surgical Pathology Rep [facility] 03-29-2023 Final Surgical Pathology Report . 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 Recommend clinical pathologic correlation. CLINICAL INFORMATION: Procedure: CYSTOSCOPY, HYDRODISTENTION, BLADDER BX AND FULGURATION OF MCKINLEY'S ULCER Preoperative diagnosis: BLADDER PAIN Postoperative diagnosis: BLADDER PAIN SPECIMEN: A BX OF MCKINLEY'S ULCER GROSS DESCRIPTION: All parts labelled with patient name and [id number] Received in formalin labeled biopsy of Mckinley's ulcer is 1 [place]-pink tissue fragment measuring 0.1 cm. TS-1 Radha Bhakta, Grossing Operations Agent/ Dr. Flaquito Lanza, Pathologist Dictated by Radha Bhakta MICROSCOPIC DESCRIPTION: The microscopic examination is performed, except in the case of Gross Only. Electronically Signed by Pathology Report verified by [facility] JOANA RAYGOZA MD Sign out Date: 03/29/2023 16:19 Performing Lab: [facility], [address] [place] [address] Pathology Dept Disclaimer If ancillary studies were utilized, the following Laboratory Developed Test (LDT) disclaimer will apply: Under CLIA requirements, [facility] is qualified to perform high complexity testing. For all ancillary stains, positive and negative controls stain appropriately. Performance characteristics of immunohistochemical and chromogenic in-situ hybridization tests have been determined by [facility]. These tests are used for clinical purposes, They should not be regarded as investigational or for research. Normal [facility]) LABORATORYOrdered By: Nazario Obrien on 03-26-2023 Beta HCG ( test) Ql (U) Negative (03/26/23 9:43 AM) [facility] Work Phone: .Auto Diffon 03-13-2023 Basophil, Absolute 0.0 10 3/mcL Normal 0.0-0.3 [facility] ([place]) Comment on above: Performed By: #### C BC, ADIFF, ANEU, BMP, GFR #### [address] [address] Basophils/100 WBC (Bld) 0.7 % Normal 0.0-2.5 [facility] ([place]) Comment on above: Performed By: #### C BC, ADIFF, ANEU, BMP, GFR #### [address] [address] Eosinophil, Absolute 0.2 10 3/mcL Normal 0.0-0.7 [facility] ([place]) Comment on above: Performed By: #### C BC, ADIFF, ANEU, BMP, GFR #### [address] [address] Eosinophils/100 WBC (Bld) 2.8 % Normal 0.0-6.0 [facility] ([place]) Comment on above: Performed By: #### C BC, ADIFF, ANEU, BMP, GFR #### [address] [address] Lymphocyte, Absolute 2.3 10 3/mcL Normal 0.9-4.3 [facility] ([place]) Comment on above: Performed By: #### C BC, ADIFF, ANEU, BMP, GFR #### [address] [address] Lymphocytes/100 WBC (Bld) 41.6 % High 20.0-40.0 [facility] ([place]) Comment on above: Performed By: #### C BC, ADIFF, ANEU, BMP, GFR #### [address] [address] Monocyte, Absolute 0.3 10 3/mcL Normal 0.1-1.4 [facility] ([place]) Comment on above: Performed By: #### C BC, ADIFF, ANEU, BMP, GFR #### [address] [address] Monocytes/100 WBC (Bld) 4.7 % Normal 2.0-13.0 [facility] ([place]) Comment on above: Performed By: #### C BC, ADIFF, ANEU, BMP, GFR #### [address] [address] Neutrophils/100 WBC (Bld) 50.2 % Normal 50.0-75.0 [facility] ([place]) Comment on above: Performed By: #### C BC, ADIFF, ANEU, BMP, GFR #### [address] [address] .GFRon 03-13-2023 GFR Non- >60 Normal [facility] ([place]) Comment on above: Result Comment: GFR Population mean for , Non- Americans Ages 20-29 = 116 mL/min/1.73 sq.m. Ages 30-39 = 107 mL/min/1.73 sq.m. Ages 40-49 = 99 mL/min/1.73 sq.m. Ages 50-59 = 93 mL/min/1.73 sq.m. Ages 60-69 = 85 mL/min/1.73 sq.m. Ages 70+ = 75 mL/min/1.73 sq.m. Chronic Kidney Disease: Less than 60 mL/min/1.73 square meters End Stage Renal Disease: Less than 15 mL/min/1.73 square meters Performed By: #### C BC, ADIFF, ANEU, BMP, GFR #### [address] [address] GFR >60 Normal [facility] [facility] ([place]) Comment on above: Result Comment: GFR Population mean for , Non- Americans Ages 20-29 = 116 mL/min/1.73 sq.m. Ages 30-39 = 107 mL/min/1.73 sq.m. Ages 40-49 = 99 mL/min/1.73 sq.m. Ages 50-59 = 93 mL/min/1.73 sq.m. Ages 60-69 = 85 mL/min/1.73 sq.m. Ages 70+ = 75 mL/min/1.73 sq.m. Chronic Kidney Disease: Less than 60 mL/min/1.73 square meters End Stage Renal Disease: Less than 15 mL/min/1.73 square meters Performed By: #### C BC, ADIFF, ANEU, BMP, GFR #### [address] [address] .NEUABSon 03-13-2023 Neutrophil, Absolute 2.8 10 3/mcL Normal 2.3-8.1 [facility] ([place]) Comment on above: Performed By: #### C BC, ADIFF, ANEU, BMP, GFR #### [address] [address] BMPon 03-13-2023 BUN/Creatinine Ratio 27.1 ratio High 10.0-22.0 [facility] ([place]) Comment on above: Performed By: #### C BC, ADIFF, ANEU, BMP, GFR #### [address] [address] Calcium [Mass/Vol] 9.7 mg/dL Normal 8.7-10.4 Formerly [facility] ([place]) Comment on above: Performed By: #### C BC, ADIFF, ANEU, BMP, GFR #### [address] [address] Chloride [Moles/Vol] 113 mmol/L High 98-110 [facility] ([place]) Comment on above: Performed By: #### C BC, ADIFF, ANEU, BMP, GFR #### [address] [address] CO2 [Moles/Vol] 28 mmol/L Normal 22-32 [facility] ([place]) Comment on above: Performed By: #### C BC, ADIFF, ANEU, BMP, GFR #### [address] [address] Creatinine [Mass/Vol] 0.85 mg/dL Normal 0.50-1.20 [facility] ([place]) Comment on above: Performed By: #### C BC, ADIFF, ANEU, BMP, GFR #### [address] [address] Electrolyte Balance 3.0 mEq/L Low 4.0-15.0 [facility] ([place]) Comment on above: Performed By: #### C BC, ADIFF, ANEU, BMP, GFR #### [address] [address] Glucose [Mass/Vol] 84 mg/dL Normal 70-110 [facility] ([place]) Comment on above: Performed By: #### C BC, ADIFF, ANEU, BMP, GFR #### [place] [address] Potassium [Moles/Vol] 4.4 mmol/L Normal 3.5-5.0 [facility] ([place]) Comment on above: Performed By: #### C BC, ADIFF, ANEU, BMP, GFR #### [place] [address] Sodium [Moles/Vol] 144 mmol/L Normal 136-145 [facility] ([place]) Comment on above: Performed By: #### C BC, ADIFF, ANEU, BMP, GFR #### [place] [address] Urea nitrogen [Mass/Vol] 23.0 mg/dL High 8.0-22.0 [facility] ([place]) Comment on above: Performed By: #### C BC, ADIFF, ANEU, BMP, GFR #### [place] [address] CBCon 03-13-2023 Erythrocyte distribution width (RBC) [Ratio] 12.7 % Normal 11.5-15.5 [facility] ([place] Comment on above: Performed By: #### C BC, ADIFF, ANEU, BMP, GFR #### [place] [address] Hematocrit (Bld) [Volume fraction] 40.2 % Normal 34.0-46.0 [facility] ([place] Comment on above: Performed By: #### C BC, ADIFF, ANEU, BMP, GFR #### [place] [address] Hgb 13.4 G/dL Normal 12.0-16.0 [facility] ([place] Comment on above: Performed By: #### C BC, ADIFF, ANEU, BMP, GFR #### [place] [address] MCH (RBC) [Entitic mass] 30.2 pg Normal 27.0-33.0 [facility] ([place] Comment on above: Performed By: #### C BC, ADIFF, ANEU, BMP, GFR #### [place] [address] MCHC 33.5 G/dL Normal 32.0-36.0 [facility] ([place] Comment on above: Performed By: #### C BC, ADIFF, ANEU, BMP, GFR #### [place] [address] MCV (RBC) [Entitic vol] 90.3 fL Normal 80.0-99.0 [facility] ([place] Comment on above: Performed By: #### C BC, ADIFF, ANEU, BMP, GFR #### [place] [address] Platelet 235 10 3/mcL Normal 150-450 [facility] ([place] Comment on above: Performed By: #### C BC, ADIFF, ANEU, BMP, GFR #### [place] [address] Platelet mean volume (Bld) [Entitic vol] 9.1 fL Normal 6.6-10.5 [facility] ([place] Comment on above: Performed By: #### C BC, ADIFF, ANEU, BMP, GFR #### [place] [address] RBC 4.45 10 6/mcL Normal 4.10-5.30 [facility] ([place] Comment on above: Performed By: #### C BC, ADIFF, ANEU, BMP, GFR #### [place] [address] WBC 5.6 10 3/mcL Normal 4.5-10.8 [facility] ([place] Comment on above: Performed By: #### C BC, ADIFF, ANEU, BMP, GFR #### [place] [address] LABORATORYOrdered By: SYSTEM SYSTEM on 03-13-2023 Basophils (Bld) [#/Vol] 0.0 103/mcL Invalid Interpretation Code 0.0 - 0.3 10^3/mcL AH Workflow SS Basophils/100 WBC (Bld) 0.7 % Invalid Interpretation Code 0.0 - 2.5 % AH Workflow SS Calcium [Mass/Vol] 9.7 mg/dL Invalid Interpretation Code 8.7 - 10.4 mg/dL ADM SS Chloride [Moles/Vol] 113 mmol/L Invalid Interpretation Code 98 - 110 mEq/L ADM SS CO2 [Moles/Vol] 28 mmol/L Invalid Interpretation Code 22 - 32 mEq/L ADM SS Creatinine [Mass/Vol] 0.85 mg/dL Invalid Interpretation Code 0.50 - 1.20 mg/dL ADM SS Electrolyte Balance 3.0 mEq/L Invalid Interpretation Code 4.0 - 15.0 mEq/L ADM SS Eosinophils (Bld) [#/Vol] 0.2 103/mcL Invalid Interpretation Code 0.0 - 0.7 10^3/mcL Workflow SS Eosinophils/100 WBC (Bld) 2.8 % Invalid Interpretation Code 0.0 - 6.0 % Workflow SS Erythrocyte distribution width (RBC) [Ratio] 12.7 % Invalid Interpretation Code 11.5 - 15.5 % Workflow SS GFR/1.73 sq M.predicted among blacks MDRD (S/P/Bld) [Vol rate/Area] ml/min/1.73sqm Invalid Interpretation Code [facility] S Comment on above: Interpretive Data: GFR Population mean for , Non- Americans Ages 20-29 = 116 mL/min/1.73 sq.m. Ages 30-39 = 107 mL/min/1.73 sq.m. Ages 40-49 = 99 mL/min/1.73 sq.m. Ages 50-59 = 93 mL/min/1.73 sq.m. Ages 60-69 = 85 mL/min/1.73 sq.m. Ages 70+ = 75 mL/min/1.73 sq.m. Chronic Kidney Disease: Less than 60 mL/min/1.73 square meters End Stage Renal Disease: Less than 15 mL/min/1.73 square meters GFR/1.73 sq M.predicted among non-blacks MDRD (S/P/Bld) [Vol rate/Area] ml/min/1.73sqm Invalid Interpretation Code [facility] S Comment on above: Interpretive Data: GFR Population mean for , Non- Americans Ages 20-29 = 116 mL/min/1.73 sq.m. Ages 30-39 = 107 mL/min/1.73 sq.m. Ages 40-49 = 99 mL/min/1.73 sq.m. Ages 50-59 = 93 mL/min/1.73 sq.m. Ages 60-69 = 85 mL/min/1.73 sq.m. Ages 70+ = 75 mL/min/1.73 sq.m. Chronic Kidney Disease: Less than 60 mL/min/1.73 square meters End Stage Renal Disease: Less than 15 mL/min/1.73 square meters Glucose [Mass/Vol] 84 mg/dL Invalid Interpretation Code 70 - 110 mg/dL ADM SS Hematocrit (Bld) [Volume fraction] 40.2 % Invalid Interpretation Code 34.0 - 46.0 % Workflow SS Hemoglobin (Bld) [Mass/Vol] 13.4 G/dL Invalid Interpretation Code 12.0 - 16.0 G/dL Workflow SS Lymphocytes (Bld) [#/Vol] 2.3 103/mcL Invalid Interpretation Code 0.9 - 4.3 10^3/mcL Workflow SS Lymphocytes/100 WBC (Bld) 41.6 % Invalid Interpretation Code 20.0 - 40.0 % Workflow SS MCH (RBC) [Entitic mass] 30.2 pg Invalid Interpretation Code 27.0 - 33.0 pg Workflow SS MCHC 33.5 G/dL Invalid Interpretation Code 32.0 - 36.0 G/dL Workflow SS MCV (RBC) [Entitic vol] 90.3 fL Invalid Interpretation Code 80.0 - 99.0 fL Workflow SS Monocytes (Bld) [#/Vol] 0.3 103/mcL Invalid Interpretation Code 0.1 - 1.4 10^3/mcL Workflow SS Monocytes/100 WBC (Bld) 4.7 % Invalid Interpretation Code 2.0 - 13.0 % Workflow SS Neutrophils (Bld) [#/Vol] 2.8 103/mcL Invalid Interpretation Code 2.3 - 8.1 10^3/mcL Workflow SS Neutrophils/100 WBC (Bld) 50.2 % Invalid Interpretation Code 50.0 - 75.0 % Workflow SS Platelet mean volume (Bld) [Entitic vol] 9.1 fL Invalid Interpretation Code 6.6 - 10.5 fL Workflow SS Platelets (Bld) [#/Vol] 235 103/mcL Invalid Interpretation Code 150 - 450 10^3/mcL AH Workflow SS Potassium [Moles/Vol] 4.4 mmol/L Invalid Interpretation Code 3.5 - 5.0 mEq/L AH ADM SS RBC (Bld) [#/Vol] 4.45 106/mcL Invalid Interpretation Code 4.10 - 5.30 10^6/mcL AH Workflow SS Sodium [Moles/Vol] 144 mmol/L Invalid Interpretation Code 136 - 145 mEq/L AH ADM SS Urea nitrogen [Mass/Vol] 23.0 mg/dL Invalid Interpretation Code 8.0 - 22.0 mg/dL AH ADM SS Urea nitrogen/Creatinine [Mass ratio] 27.1 ratio Invalid Interpretation Code 10.0 - 22.0 ratio AH ADM SS WBC (Bld) [#/Vol] 5.6 103/mcL Invalid Interpretation Code 4.5 - 10.8 10^3/mcL AH Workflow SS Non-Assembly Press Operator Cytology Reporton Non-Assembly Press Operator Cytology Report . 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 COMMENT: Abundant bacteria present. SPECIMEN: URINE GROSS DESCRIPTION: # of Monolayers: 1 Volume (ml) 60 Color: Fixed cloudy yellow fluid SUGGESTION/EDUCATIONAL NOTES: This sample was evaluated using standardized diagnostic criteria published in the '[place] System for Reporting Urinary Cytology '(TPS), Second edition, 2021. The following Risk of High-grade urothelial carcinoma is based on published data from TPS. Individual institutional rates may vary. TPS Cytology Diagnostic category Risk of high-grade malignancy Non diagnostic 0-16% Negative for High grade urothelial carcinoma 8-24% Low grade urothelial neoplasm 0-44% Atypical Urothelial cells 24-53% Suspicious for High grade urothelial carcinoma 59-94% Malignant- High grade urothelial carcinoma 76-100% Electronically Signed by Pathology Report verified by [facility] Screened by: DAVID Electronically signed by JOANA RAYGOZA MD Sign-Out Date: 03/08/2023 11:49 Performing Lab: [facility], [address] [place] [address] Pathology Dept Disclaimer If ancillary studies were utilized, the following Laboratory Developed Test (LDT) disclaimer will apply: Under CLIA requirements, [facility] is qualified to perform high complexity testing. For all ancillary stains, positive and negative controls stain appropriately. Performance characteristics of immunohistochemical and chromogenic in-situ hybridization tests have been determined by [facility]. These tests are used for clinical purposes, They should not be regarded as investigational or for research. Normal [facility] ([place]) URINE CULTUREon 02-12-2023 Bacteria identified Cx Nom (U) <10,000 CFU/ml Normal urogenital leonor [facility] Urinalysis complete panel (U )on 02-12-2023 Bilirubin Ql (U) Negative Negative [facility] Clarity (Unsp spec) Cloudy Abnormal Clear [facility] Color (U) Light [place] Abnormal Yellow [facility] Epithelial cells LM.HPF (Urine sed) [#/Area] Few Abnormal None Seen /HPF [facility] Glucose Test strip (U) [Mass/Vol] Negative Trace, Negative [facility] Hemoglobin Ql (U) 3+ Abnormal Negative, Trace [facility] Ketones Ql (U) Negative Trace, Negative [facility] Leukocyte esterase Test strip Ql (U) 500 [place]/uL Abnormal Negative, 25 [place]/uL [facility] Nitrite Ql (U) Negative Negative [facility] pH (U) 8.0 [pH] 5.0 - 8.0 [facility] Protein (U) [Mass/Vol] 3+ Abnormal Trace , Negative [facility] RBC LM.HPF (Urine sed) [#/Area] /[HPF] Abnormal 0-3 /HPF [facility] Specific gravity (U) [Rel density] 1.029 1.005 - 1.030 [facility] Urobilinogen Ql (U) Negative Negative [facility] WBC LM.HPF (Urine sed) [#/Area] /[HPF] Abnormal 0-5 /HPF [facility] TSH BLDon 01-29-2023 TSH Qn 0.687 m[IU]/L 0.270 - 4.200 mIU/L [facility] TSH SerPl-aCncon 01-29-2023 TSH Qn 0.687 m[IU]/L Normal 0.270-4.200 [facility] Comment on above: Order Comment: Speci men Type: BLOOD SPECIMEN Ordering Facility: [facility] Address: [place] [id number] Result Comment: If t he patient is , TSH reference range varies by gestational period: First Trimester (weeks 9-12): 0.180-2.990 mIU/L Second Trimester: 0.110-3.980 mIU/L Third Trimester: 0.480-4.710 mIU/L Suleman Chowdhury et al. A Practical Approach for the Verifications and Determination of Site- and Trimester-Specific Reference Intervals for Thyroid Function tests in . Thyroid, 2019:29:3:412-420. Sebas E, et al. 2017 Guidelines of the [place] Thy[employer] Association for the Diagnosis and Management of Thyroid Disease during and the . Thyroid, 2017:27:3:315-389. Performed By: #### 2 132-9, 3016-3 #### [facility] CLIA [id number] [address] [place] [address] [place] VITAMIN B12 BLOODon 01-30-20 23 Cobalamin (Vitamin B12) [Mass/Vol] 602 pg/mL 232 - 1,245 pg/mL [facility] Vit B12 SerPl-mCncon 023 Cobalamin (Vitamin B12) [Mass/Vol] 602 pg/mL Normal 232-1245 [facility] Comment on above: Order Comment: Jemima vyas Type: BLOOD SPECIMEN Ordering Facility: [facility] Address: [place] [address] Performed By: #### 2 132-9, 3016-3 #### [facility] CLIA [id number] [address] [place] [address] [place] Absolute lymphocyte countOrd ered By: Dr. [place] on 01-26-2023 Lymphocytes Auto (Unsp spec) [#/Vol] 2.28 10*3/uL 0.83-4.51 [facility] Basophil percentageOrdered B y: Dr. [place] on 01-26-2023 Basophils/100 WBC (Bld) 0.5 % 0-1 [facility] Bilirubin [Mass/Vol] 0.60 mg/dL 0.20-1.00 [facility] Comment on above: For patients on eltr ombopag therapy, use of Dimension [place] TBIL is not recommended. Chloride [Moles/Vol] 107 mmol/L 98-107 [facility] Eosinophils/100 WBC (Bld) 0.8 % 0-5 [facility] Glucose [Mass/Vol] 95 mg/dL 74-106 [facility] Neutrophils (Bld) [#/Vol] 5.2 10*3/uL 2.0-7.7 [facility] Neutrophils/100 WBC (Bld) 65.2 % 47-70 [facility] Potassium [Moles/Vol] 3.9 mmol/L 3.5-5.1 [facility] Protein [Mass/Vol] 7.6 g/dL 6.4-8.2 [facility] Sodium [Moles/Vol] 141 mmol/L 136-145 [facility] WBC (Bld) [#/Vol] 7.9 10*3/uL 4.4-11.0 [facility] Basophil percentage 50-100 SEEN /hpf 0-5 [facility] Bilirubin Test strip Ql (U)O rdered By: Dr. [place] on 01-26-2023 Bilirubin Ql (U) Negative Negative [facility] Blood erythrocytes count (nu mber/volume)Ordered By: Dr. [place] on 01-26-2023 RBC (Bld) [#/Vol] 4.53 10*6/uL 4.2-5.4 [facility] Blood hemoglobin measurement (mass/volume)Ordered By: Dr. [place] on 01-26-2023 Hemoglobin (Bld) [Mass/Vol] 14.0 g/dL 12.0-15.0 [facility] Blood lymphocytes/100 leukoc ytesOrdered By: Dr. [place] on 01-26-2023 Lymphocytes/100 WBC (Bld) 28.8 % 19-41 [facility] Blood monocytes/100 leukocyt esOrdered By: Dr. [place] on 01-26-2023 Monocytes/100 WBC (Bld) 4.4 % 0-10 [facility] Blood platelet mean volumeOr dered By: Dr. [place] on 01-26-2023 Platelet mean volume (Bld) [Entitic vol] 10.5 fL 6.2-12.0 [facility] Determination of erythrocyte mean corpuscular volume (MCV)Ordered By: Dr. [place] on 01-26-2023 MCV (RBC) [Entitic vol] 89.4 fL 81-99 [facility] Hematocrit Auto (Bld) [Volum e fraction]Ordered By: Dr. [place] on 01-26-2023 Hematocrit (Bld) [Volume fraction] 40.5 % 37-47 [facility] Ketones Test strip Ql (U)Ord ered By: Dr. [place] on 01-26-2023 Ketones Ql (U) 15 mg/dl Negative [facility] Laboratory - Chemistry and C hemistry - challengeOrdered By: Dr. [place] on 01-26-2023 ALP [Catalytic activity/Vol] 66 U/L 45-117 [facility] ALT [Catalytic activity/Vol] 12 U/L 13-56 [facility] CO2 [Moles/Vol] 27.0 mmol/L 21.0-32.0 [facility] Globulin (S) [Mass/Vol] 3.4 g/dL 2.2-4.2 [facility] Magnesium [Mass/Vol] 2.3 mg/dL 1.6-2.6 [facility] Urea nitrogen/Creatinine [Mass ratio] 19.0 mg/mg 10-20 [facility] HCG ( test) Ql (U) Negative [facility] Comment on above: Very dilute urine sp ecimens, as indicated by a low specificgravity, may not contain regional sales representative levels of hCG. If is still suspected, a first morning urinespecimen should be collected 48 hours later and tested. Laboratory - Hematology and Cell countsOrdered By: Dr. [place] on 01-26-2023 Erythrocyte distribution width (RBC) [Entitic vol] 38.6 fL 35.1-43.9 [facility] Erythrocyte distribution width (RBC) [Ratio] 11.9 % 11.6-14.6 [facility] Immature granulocytes/100 WBC (Bld) 0.300 % 0.0-0.9 [facility] Comment on above: IG% - Immature Granu locytes (promyelocytes, myelocytes and metamyelocytes) > 1% indicates that a LEFT SHIFT is Present. MCH (RBC) [Entitic mass] 30.9 pg 27.0-32.0 [facility] Nucleated RBC/100 WBC (Bld) [Ratio] 0 % 0-5 [facility] MCHC Auto (RBC) [Mass/Vol]Or dered By: Dr. [place] on 01-26-2023 MCHC (RBC) [Mass/Vol] 34.6 g/dL 32-36 [facility] Magnesium ammonium phosphate crystal detectionOrdered By: Dr. [place] on 01-26-2023 Triple phosphate crystals LM Ql (Urine sed) 1+ /hpf [facility] Mucus LM Ql (Urine sed)Order ed By: Dr. [place] on 01-26-2023 Mucus Ql (Urine sed) 0 SEEN /hpf [facility] Nitrite Test strip Ql (U)Ord ered By: Dr. [place] on 01-26-2023 Nitrite Ql (U) Negative Negative [facility] No Panel InformationOrdered By: Dr. [place] on 01-26-2023 Estimated Creatinine Clearance Calc 80.36 ml/min [facility] Estimated GFR (MDRD) Amer 113 mL/min >60 [facility] Comment on above: GFR Calc Estimated GFR (MDRD) Non-Af Amer 93 mL/min >60 [facility] Comment on above: Non- GFR Calc Platelets bldOrdered By: Dr. [place] on 01-26-2023 Platelets (Bld) [#/Vol] 248 10*3/uL 150-450 [facility] Protein Test strip Ql (U)Ord ered By: Dr. [place] on 01-26-2023 Protein Ql (U) 500 mg/dl Negative [facility] Serum or plasma albumin tono urement (mass/volume)Ordered By: Dr. [place] on 01-26-2023 Albumin [Mass/Vol] 4.2 g/dL 3.2-5.0 [facility] Serum or plasma albumin/glob ulin mass ratioOrdered By: Dr. [place] on 01-26-2023 Albumin/Globulin [Mass ratio] 1.2 {ratio} 0.9-2.4 [facility] Serum or plasma calcium tono urement (mass/volume)Ordered By: Dr. [place] on 01-26-2023 Calcium [Mass/Vol] 9.0 mg/dL 8.5-10.1 [facility] Serum or plasma creatinine m easurement (mass/volume)Ordered By: Dr. [place] on 01-26-2023 Creatinine [Mass/Vol] 0.79 mg/dL 0.55-1.02 [facility] Comment on above: The validity of the calculated GFR & GFRAA in patients over 70 years has not been determined. Clinical correlation is essential. Serum or plasma urea nitroge n measurement (mass/volume)Ordered By: Dr. [place] on 01-26-2023 Urea nitrogen [Mass/Vol] 15 mg/dL 7-18 [facility] Squamous epithelial cells de tection in urine sediment by light microscopyOrdered By: Dr. [place] on 01-26-2023 Epithelial cells.squamous LM Ql (Urine sed) 5-10 SEEN /hpf 5-10 [facility] Thin prep Papanicolaou smear with manual screeningOrdered By: Dr. [place] on 01-26-2023 Thin prep Papanicolaou smear with manual screening 10 U/L 15-37 [facility] Thin prep Papanicolaou smear with manual screening 7 5-15 [facility] Urine blood detectionOrdered By: Dr. [place] on 01-26-2023 RBC Ql (U) 250 /ul Negative [facility] RBC Ql (U) > 100 SEEN /hpf 0-5 [facility] Urine clarityOrdered By: Dr. [place] on 01-26-2023 Clarity (U) Cloudy Clear [facility] Urine color determinationOrd ered By: Dr. [place] on 01-26-2023 Color (U) Yellow Yellow [facility] Urine glucose detectionOrder ed By: Dr. [place] on 01-26-2023 Glucose Ql (U) Normal mg/dl Normal [facility] Urine leukocyte esterase det ection by dipstickOrdered By: Dr. [place] on 01-26-2023 Leukocyte esterase Test strip Ql (U) 500 /ul Negative [facility] Urine pHOrdered By: Dr. Law muñoz on 01-26-2023 pH (U) 8.0 [pH] 5.0 - 8.0 [facility] Urine sediment bacteria coun t by microscopy (number/high power field)Ordered By: Dr. [place] on 01-26-2023 Bacteria LM.HPF (Urine sed) [#/Area] 2 /[HPF] None Seen [facility] Urine specific gravity measu rementOrdered By: Dr. [place] on 01-26-2023 Specific gravity (U) [Rel density] 1.015 1.002-1.030 [facility] Urobilinogen Auto test strip Ql (U)Ordered By: Dr. [place] on 01-26-2023 Urobilinogen Ql (U) Normal mg/dl Normal [facility] Basophil percentageOrdered B y: Dr. Lewis on 09-06-2022 Bilirubin [Mass/Vol] 0.70 mg/dL 0.20-1.00 [facility] Comment on above: For patients on eltr ombopag therapy, use of Dimension [place] TBIL is not recommended. Protein [Mass/Vol] 7.3 g/dL 6.4-8.2 [facility] WBC (Bld) [#/Vol] 5.3 10*3/uL 4.4-11.0 [facility] Blood erythrocytes count (nu mber/volume)Ordered By: Dr. Lewis on 09-06-2022 RBC (Bld) [#/Vol] 4.24 10*6/uL 4.2-5.4 [facility] Blood hemoglobin measurement (mass/volume)Ordered By: Dr. Lewis on 09-06-2022 Hemoglobin (Bld) [Mass/Vol] 13.0 g/dL 12.0-15.0 [facility] Blood platelet mean volumeOr dered By: Dr. Lewis on 09-06-2022 Platelet mean volume (Bld) [Entitic vol] 10.5 fL 6.2-12.0 [facility] Determination of erythrocyte mean corpuscular volume (MCV)Ordered By: Dr. Lewis on 09-06-2022 MCV (RBC) [Entitic vol] 91.3 fL 81-99 [facility] Direct bilirubinOrdered By: Dr. Lewis on 09-06-2022 Bilirubin.direct [Mass/Vol] 0.11 mg/dL 0.00-0.30 [facility] Hematocrit Auto (Bld) [Volum e fraction]Ordered By: Dr. Lewis on 09-06-2022 Hematocrit (Bld) [Volume fraction] 38.7 % 37-47 [facility] INR in Blood by Coagulation assayOrdered By: Dr. Lewis on 09-06-2022 INR Coag (Bld) [Relative time] 1.1 {INR} [facility] Laboratory - Chemistry and C hemistry - challengeOrdered By: Dr. Lewis on 09-06-2022 ALP [Catalytic activity/Vol] 60 U/L 45-117 [facility] ALT [Catalytic activity/Vol] 15 U/L 13-56 [facility] Globulin (S) [Mass/Vol] 3.4 g/dL 2.2-4.2 [facility] Laboratory - Chemistry and C hemistry - challengeOrdered By: Dr. Schilling on 09-06-2022 HCG ( test) Ql (U) Negative [facility] Comment on above: Very dilute urine sp ecimens, as indicated by a low specificgravity, may not contain regional sales representative levels of hCG. If is still suspected, a first morning urinespecimen should be collected 48 hours later and tested. Laboratory - CoagulationOrde red By: Dr. Lewis on 09-06-2022 aPTT Coag (Bld) [Time] 33.7 s 24.1-36.2 [facility] PT Coag (PPP) [Time] 14.1 s 11.7-14.9 [facility] Laboratory - Hematology and Cell countsOrdered By: Dr. Lewis on 09-06-2022 Erythrocyte distribution width (RBC) [Entitic vol] 40.5 fL 35.1-43.9 [facility] Erythrocyte distribution width (RBC) [Ratio] 12.1 % 11.6-14.6 [facility] MCH (RBC) [Entitic mass] 30.7 pg 27.0-32.0 [facility] MCHC Auto (RBC) [Mass/Vol]Or dered By: Dr. Lewis on 09-06-2022 MCHC (RBC) [Mass/Vol] 33.6 g/dL 32-36 [facility] Platelets bldOrdered By: Dr. Lewis on 09-06-2022 Platelets (Bld) [#/Vol] 228 10*3/uL 150-450 [facility] Serum or plasma albumin tono urement (mass/volume)Ordered By: Dr. Lewis on 09-06-2022 Albumin [Mass/Vol] 3.9 g/dL 3.2-5.0 [facility] Thin prep Papanicolaou smear with manual screeningOrdered By: Dr. Lewis on 09-06-2022 Thin prep Papanicolaou smear with manual screening 13 U/L 15-37 [facility] Absolute lymphocyte counton 04-05-2022 Lymphocytes Auto (Unsp spec) [#/Vol] 2.73 10*3/uL 0.83-4.51 [facility] Work Phone: Basophil percentageon 2021 Basophils/100 WBC (Bld) 0.6 % 0-1 [facility] Work Phone: Eosinophils/100 WBC (Bld) 1.6 % 0-5 [facility] Work Phone: Neutrophils (Bld) [#/Vol] 3.6 10*3/uL 2.0-7.7 [facility] Work Phone: Neutrophils/100 WBC (Bld) 52.4 % 47-70 [facility] Work Phone: WBC (Bld) [#/Vol] 6.8 10*3/uL 4.4-11.0 [facility] Work Phone: Blood erythrocytes count (nu mber/volume)on 04-05-2022 RBC (Bld) [#/Vol] 4.28 10*6/uL 4.2-5.4 [facility] Work Phone: Blood hemoglobin measurement (mass/volume)on 04-05-2022 Hemoglobin (Bld) [Mass/Vol] 13.1 g/dL 12.0-15.0 [facility] Work Phone: Blood lymphocytes/100 leukoc yteson 04-05-2022 Lymphocytes/100 WBC (Bld) 39.9 % 19-41 [facility] Work Phone: Blood monocytes/100 leukocyt eson 04-05-2022 Monocytes/100 WBC (Bld) 5.4 % 0-10 [facility] Work Phone: Blood platelet mean volumeon 04-05-2022 Platelet mean volume (Bld) [Entitic vol] 10.7 fL 6.2-12.0 [facility] Work Phone: Determination of erythrocyte mean corpuscular volume (MCV)on 04-05-2022 MCV (RBC) [Entitic vol] 91.6 fL 81-99 [facility] Work Phone: Hematocrit Auto (Bld) [Volum e fraction]on 04-05-2022 Hematocrit (Bld) [Volume fraction] 39.2 % 37-47 [facility] Work Phone: Laboratory - Hematology and Cell countson 04-05-2022 Erythrocyte distribution width (RBC) [Entitic vol] 41.1 fL 35.1-43.9 [facility] Work Phone: Erythrocyte distribution width (RBC) [Ratio] 12.4 % 11.6-14.6 [facility] Work Phone: Immature granulocytes/100 WBC (Bld) 0.100 % 0.0-0.9 [facility] Work Phone: Comment on above: IG% - Immature Granu locytes (promyelocytes, myelocytes and metamyelocytes) > 1% indicates that a LEFT SHIFT is Present. MCH (RBC) [Entitic mass] 30.6 pg 27.0-32.0 [facility] Work Phone: Nucleated RBC/100 WBC (Bld) [Ratio] 0 % 0-5 [facility] Work Phone: MCHC Auto (RBC) [Mass/Vol]on 04-05-2022 MCHC (RBC) [Mass/Vol] 33.4 g/dL 32-36 [facility]: No Panel Informationon 04-05 Thyroid Stimulating Hormone (TSH) 1.54 uIU/mL 0.358-3.74 [facility] Work Phone: Platelets bldon 04-05-2022 Platelets (Bld) [#/Vol] 239 10*3/uL 150-450 [facility] Work Phone: Culture, urineon 09-28-2021 Bacteria identified Cx Nom (U) Presumptive E. coli [facility] Work Phone: Laboratory - Chemistry and C hemistry - challengeon 09-28-2021 Bilirubin Ql (U) Negative [facility] Work Phone: Glucose Ql (U) Negative [facility] Work Phone: Ketones Ql (U) Trace (5) [facility] Work Phone: Specific gravity (U) [Rel density] 1.025 [facility] Work Phone: Urobilinogen (U) [Mass/Vol] Negative [facility] Work Phone: Laboratory - Hematology and Cell countson 09-28-2021 Hemoglobin Ql (U) Large [facility] Work Phone: Laboratory - Specimen inform ationon 09-28-2021 Clarity (U) Hazy [facility] Work Phone: Color (U) STRAW [facility] Work Phone: Laboratory - Urinalysison Nitrite Ql (U) Positive [facility] Work Phone: Protein Ql (U) Positive [facility] Work Phone: No Panel Informationon 09-28 Urine Leukocytes Positive [facility] Work Phone: Urine Non-Hemolyzed Blood [facility] Work Phone: HCG,Totalon 10-07-2019 HCG Qn 531.0 m[IU]/mL Normal [facility] Comment on above: Result Comment: Male : 0-2 mIU/mL Non- Female: 0-6 mIU/mL Female - Gestational Age: 0.2-1 Week 5 - 50 1-2 Weeks 50 - 500 2-3 Weeks 100 - 5,000 3-4 Weeks 500 - 10,000 4-5 weeks 1,000 - 50,000 5-6 weeks 10,000 - 100,000 6-8 weeks 15,000 - 200,000 2-3 months 10,000 - 100,000 The concentration of hCG in maternal serum rises rapidly in early . hCG levels less than 25 mIU/mL do NOT exclude . A further sample should be tested after 48 hours if is suspected. Performed By: #### L HCG #### [place] [id number] Urinalysis Routineon 020 Appearance (U) 3+ (CLOUDY) Normal [facility] Comment on above: Performed By: #### L URIN #### [place] [address] Bacteria LM.HPF (Urine sed) [#/Area] MANY Abnormal None [facility] Comment on above: Performed By: #### L URIN #### [place] [address] Bilirubin Urine Negative Normal Negative [facility] Comment on above: Performed By: #### L URIN #### [place] [address] Color (U) YELLOW Normal [facility] Comment on above: Performed By: #### L URIN #### [place] [address] Ep Cells Urine 6-12 Abnormal 0-5 [facility] Comment on above: Performed By: #### L URIN #### [place] [address] Glucose Ql (U) Negative Normal Negative [facility] Comment on above: Performed By: #### L URIN #### [place] [address] Hemoglobin,Urine 2+ Abnormal Negative [facility] Comment on above: Performed By: #### L URIN #### [place] [address] Ketone Urine Negative Normal Negative [facility] Comment on above: Performed By: #### L URIN #### [place] [address] Leukocytes Esterase 3+ Abnormal Negative [facility] Comment on above: Performed By: #### L URIN #### [facility] [address] [place] [id number] Nitrites Urine Positive Abnormal Negative [facility] Comment on above: Performed By: #### L URIN #### [place] [address] pH (U) 7.0 [pH] Normal 5.0-8.0 [facility] Comment on above: Performed By: #### L URIN #### [place] [address] Protein (U) [Mass/Vol] 2+ Abnormal Negative [facility] Comment on above: Performed By: #### L URIN #### [place] [address] RBC LM.HPF (Urine sed) [#/Area] 13-20 Abnormal 0-3 [facility] Comment on above: Performed By: #### L URIN #### [place] [address] Specific [place], Ur >=1.030 Normal 1.005-1.030 [facility] Comment on above: Performed By: #### L URIN #### [place] [address] Urobilinogen,Ur 0.2 EU/dL Normal 0.2-1.0 [facility] Comment on above: Performed By: #### L URIN #### [place] [address] WBC LM.HPF (Urine sed) [#/Area] /[HPF] Abnormal 0-5 [facility] Comment on above: Performed By: #### L URIN #### [place] [address] Urine HCG, Qual.on 0 Beta HCG ( test) Ql (U) Positive Normal Negative [facility] Comment on above: Performed By: #### L HCG2 #### [place] [address] Culture, urine Bacteria identified Cx Nom (U) Presumptive E. coli [facility] Work Phone: Vital Signs Date Time Vital Sign Value Performing Clinician Facility 01-11-2025 14:02-0400 Body height 157.[address] Elkin Oliva MD Work Phone: 9(931)085-383172 [place] [address] 01-11-2025 14:02-0400 Body mass index (BMI) [Ratio] 21.2 kg/m2 Dr. Elkin Oliva MD Work Phone: 9(624)070-850427 [place] [address] 01-11-2025 14:02-0400 Body weight 52.[address] Elkin Oliva MD Work Phone: 6(096)323-698027 [place] [address] 01-11-2025 14:02-0400 Diastolic blood pressure 83 mm[Hg] Dr. Elkin Oliva MD Work Phone: 0(875)501-271027 [place] [address] 01-11-2025 14:02-0400 Systolic blood pressure 128 mm[Hg] Dr. Elkin Oliva MD Work Phone: 2(751)126-106527 [place] [address] 11-27-2024 13:40-0400 Body mass index (BMI) [Ratio] 21.7 kg/m2 Dr. Elkin Oliva MD Work Phone: 2(122)800-401027 [place] [address] 11-27-2024 13:40-0400 Body weight 53.[address] Elkin Oliva MD Work Phone: 9(971)638-248427 [place] [address] 11-27-2024 13:40-0400 Diastolic blood pressure 80 mm[Hg] Dr. Elkin Oliva MD Work Phone: 8(778)760-916872 [place] [address] 11-27-2024 13:40-0400 Systolic blood pressure 124 mm[Hg] Dr. Elkin Oliva MD Work Phone: 6(333)474-203827 [place] [address] 11-02-2024 11:10-0400 Body mass index (BMI) [Ratio] 20.97 kg/m2 Rod Rosales APRN.RADIO SURVEY WORKER Work Phone: [facility] 11-02-2024 11:10-0400 Body weight 52 kg Rod Rosales APRN.[employer]IO SURVEY WORKER Work Phone: [facility] 11-02-2024 11:10-0400 Diastolic blood pressure 72 mm[Hg] Rod Rosales CONFERENCE TRANSLATOR.RADIO SURVEY WORKER Work Phone: [facility] 11-02-2024 11:10-0400 Heart rate 88 /min Rod Rosales CONFERENCE TRANSLATOR.RADIO SURVEY WORKER Work Phone: [facility] 11-02-2024 11:10-0400 Respiratory rate 16 /min Rod Rosales CONFERENCE TRANSLATOR.RADIO SURVEY WORKER Work Phone: [facility] 11-02-2024 11:10-0400 Systolic blood pressure 110 mm[Hg] Rod Rosales CONFERENCE TRANSLATOR.RADIO SURVEY WORKER Work Phone: [facility] 10-19-2024 08:38-0400 Body mass index (BMI) [Ratio] 21 kg/m2 Dr. Elkin Oliva MD Work Phone: [facility] 10-19-2024 08:38-0400 Body weight 52.[address] Elkin Oliva MD Work Phone: [facility] 10-19-2024 08:38-0400 Diastolic blood pressure 81 mm[Hg] Dr. Elkin Oliva MD Work Phone: [facility] 10-19-2024 08:38-0400 Systolic blood pressure 114 mm[Hg] Dr. Elkin Oliva MD Work Phone: [facility] 01-06-2024 17:18-0400 Body mass index (BMI) [Ratio] 19.52 kg/m2 Elkin Oliva MD Work Phone: [facility] 01-06-2024 17:18-0400 Body temperature 98.71 [degF] Elkin Oliva MD Work Phone: [facility] 01-06-2024 17:18-0400 Body weight 48.4 kg Elkin Oliva MD Work Phone: [facility] 01-06-2024 17:18-0400 Diastolic blood pressure 62 mm[Hg] Elkin Oliva MD Work Phone: [facility] 01-06-2024 17:18-0400 Heart rate 109 /min Elkin Oliva MD Work Phone: [facility] 01-06-2024 17:18-0400 Respiratory rate 18 /min Elkin Oliva MD Work Phone: [facility] 01-06-2024 17:18-0400 SaO2% (BldA) [Mass fraction] 99 % Elkin Oliva MD Work Phone: [facility] 01-06-2024 17:18-0400 Systolic blood pressure 96 mm[Hg] Elkin Oliva MD Work Phone: [facility] 09-26-2023 09:57-0500 Body temperature 97.4 [degF] Dr. Elkin Oliva Work Phone: [facility] 09-26-2023 09:57-0500 Diastolic blood pressure 78 mm[Hg] Dr. Elkin Oliva Work Phone: [facility] 09-26-2023 09:57-0500 Heart rate 79 /min Dr. Elkin Oliva Work Phone: [facility] 09-26-2023 09:57-0500 Respiratory rate 16 /min Dr. Elkin Oliva Work Phone: [facility] 09-26-2023 09:57-0500 SaO2% (BldA) [Mass fraction] 100 % Dr. Elkin Oliva Work Phone: [facility] 09-26-2023 09:57-0500 Systolic blood pressure 120 mm[Hg] Dr. Elkin Oliva Work Phone: [facility] 09-26-2023 07:01-0500 Body height 157.[address] Elkin Oliva Work Phone: [facility] 09-26-2023 07:01-0500 Body mass index (BMI) [Ratio] 18.4 kg/m2 Dr. Elkin Oliva Work Phone: 8(052)601-763672 [place] [address] 09-26-2023 07:01-0500 Body weight 45.[address] Elkin Oliva Work Phone: 4(455)259-193827 [place] [address] 08-28-2023 19:48-0500 Diastolic blood pressure 66 mm[Hg] Dr. Elkin Oliva Work Phone: 3(935)937-327627 [place] [address] 08-28-2023 19:48-0500 Heart rate 68 /min Dr. Elkin Oliva Work Phone: 2(929)261-270427 [place] [address] 08-28-2023 19:48-0500 Respiratory rate 17 /min Dr. Elkin Oliva Work Phone: 6(132)721-472027 [place] [address] 08-28-2023 19:48-0500 SaO2% (BldA) [Mass fraction] 99 % Dr. Elkin Oliva Work Phone: 0(102)890-121627 [place] [address] 08-28-2023 19:48-0500 Systolic blood pressure 111 mm[Hg] Dr. Elkin Oliva Work Phone: 6(111)248-989627 [place] [address] 08-28-2023 13:53-0500 Body height 157.[address] Elkin Oliva Work Phone: 4(136)493-858027 [place] [address] 08-28-2023 13:53-0500 Body mass index (BMI) [Ratio] 19 kg/m2 Dr. Elkin Oliva Work Phone: 4(797)116-859227 [place] [address] 08-28-2023 13:53-0500 Body temperature 98.4 [degF] Dr. Elkin Oliva Work Phone: 9(756)748-903927 [place] [address] 08-28-2023 13:53-0500 Body weight 47.[address] Elkin Oliva Work Phone: 8(788)253-294227 [place] [address] 07-25-2023 13:55-0500 Body height 157.[address] Elkin Oliva Work Phone: 7(183)250-394827 [place] [address] 07-25-2023 13:52-0500 Body mass index (BMI) [Ratio] 17.9 kg/m2 Dr. Elkin Oliva Work Phone: 7(525)818-086472 [place] [address] 07-25-2023 13:52-0500 Body weight 44.[address] Elkin Oliva Work Phone: 5(046)330-293227 [place] [address] 07-25-2023 13:52-0500 Diastolic blood pressure 68 mm[Hg] Dr. Elkin Oliva Work Phone: 1(333)183-122427 [place] [address] 07-25-2023 13:52-0500 Systolic blood pressure 113 mm[Hg] Dr. Elkin Oliva Work Phone: 4(983)170-861527 [place] [address] 07-19-2023 16:23-0500 Diastolic blood pressure 74 mm[Hg] Dr. Elkin Oliva Work Phone: 6(181)594-446927 [place] [address] 07-19-2023 16:23-0500 Heart rate 76 /min Dr. Elkin Oliva Work Phone: 7(091)888-884527 [place] [address] 07-19-2023 16:23-0500 Respiratory rate 15 /min Dr. Elkin Oliva Work Phone: 3(080)646-233527 [place] [address] 07-19-2023 16:23-0500 SaO2% (BldA) [Mass fraction] 98 % Dr. Elkin Oliva Work Phone: 9(798)931-990427 [place] [address] 07-19-2023 16:23-0500 Systolic blood pressure 125 mm[Hg] Dr. Elkin Oliva Work Phone: 8(313)846-312472 [place] [address] 07-19-2023 13:50-0500 Body height 157.[address] Elkin Oliva Work Phone: 5(746)721-413627 [place] [address] 07-19-2023 13:50-0500 Body mass index (BMI) [Ratio] 17.9 kg/m2 Dr. Elkin Oliva Work Phone: 7(647)485-158972 [place] [address] 07-19-2023 13:50-0500 Body temperature 98.6 [degF] Dr. Elkin Oliva Work Phone: 4(601)768-350127 [place] [address] 07-19-2023 13:50-0500 Body weight 44.[address] Elkin Oliva Work Phone: [facility] 06-14-2023 09:41-0500 Body height 157.[address] Elkin Oliva Work Phone: [facility] 06-14-2023 09:41-0500 Body mass index (BMI) [Ratio] 18.3 kg/m2 Dr. Elkin Oliva Work Phone: [facility] 06-14-2023 09:41-0500 Body weight 45.[address] Elkin Oliva Work Phone: [facility] 06-14-2023 09:41-0500 Diastolic blood pressure 75 mm[Hg] Dr. Elkin Oliva Work Phone: [facility] 06-14-2023 09:41-0500 Systolic blood pressure 113 mm[Hg] Dr. Elkin Oliva Work Phone: [facility] 03-26-2023 13:30-0400 Body temperature 96.62 [degF] JJ VELÁZQUEZ MD [facility] 03-26-2023 13:30-0400 Diastolic Blood Pressure Non-Invasive 80 1 JJ VELÁZQUEZ MD [facility] 03-26-2023 13:30-0400 Heart rate 64 /min JJ VELÁZQUEZ MD [facility] 03-26-2023 13:30-0400 Respiratory rate 18 /min JJ VELÁZQUEZ MD [facility] 03-26-2023 13:30-0400 Systolic Blood Pressure Non-Invasive 117 1 JJ VELÁZQUEZ MD [facility] 03-26-2023 13:13-0400 Body temperature 97.7 [degF] JJ VELÁZQUEZ MD [facility] 03-26-2023 13:13-0400 Diastolic Blood Pressure Non-Invasive 83 1 JJ VELÁZQUEZ MD [facility] 03-26-2023 13:13-0400 Heart rate 61 /min JJ VELÁZQUEZ MD [facility] 03-26-2023 13:13-0400 Mean blood pressure 93 mm[Hg] JJ VELÁZQUEZ MD [facility] 03-26-2023 13:13-0400 Respiratory rate 16 /min JJ VELÁZQUEZ MD [facility] 03-26-2023 13:13-0400 Systolic Blood Pressure Non-Invasive 112 1 JJ VELÁZQUEZ MD [facility] 03-26-2023 12:47-0400 Diastolic Blood Pressure Non-Invasive 69 1 JJ VELÁZQUEZ MD [facility] 03-26-2023 12:47-0400 Heart rate 81 /min JJ VELÁZQUEZ MD [facility] 03-26-2023 12:47-0400 Mean blood pressure 79 mm[Hg] JJ VELÁZQUEZ MD [facility] 03-26-2023 12:47-0400 Respiratory rate 16 /min JJ VELÁZQUEZ MD [facility] 03-26-2023 12:47-0400 Systolic Blood Pressure Non-Invasive 108 1 JJ VELÁZQUEZ MD [facility] 03-26-2023 12:42-0400 Heart rate 81 /min JJ VELÁZQUEZ MD [facility] 03-26-2023 12:42-0400 Mean blood pressure 91 mm[Hg] JJ VELÁZQUEZ MD [facility] 03-26-2023 12:12-0400 Body temperature 96.8 [degF] JJ VELÁZQUEZ MD [facility] 03-26-2023 12:05-0400 Respiratory Rate - Anes 0 br/min JJ VELÁZQUEZ MD [facility] 03-26-2023 12:00-0400 Respiratory Rate - Anes 11 br/min JJ VELÁZQUEZ MD [facility] 03-26-2023 11:55-0400 Body temperature 94.35 [degF] JJ VELÁZQUEZ MD [facility] 03-26-2023 11:55-0400 Respiratory Rate - Anes 16 br/min JJ VELÁZQUEZ MD [facility] 03-26-2023 11:50-0400 Body temperature 94.91 [degF] JJ VELÁZQUEZ MD [facility] 03-26-2023 11:45-0400 Body temperature 95.77 [degF] JJ VELÁZQUEZ MD [facility] 03-26-2023 09:38-0400 Body height 157.5 cm JJ VELÁZQUEZ MD [facility] 03-26-2023 09:38-0400 Body weight 47.6 kg JJ VELÁZQUEZ MD [facility] 03-26-2023 09:38-0400 Heart rate 66 /min JJ VELÁZQUEZ MD [facility] 03-25-2023 14:30-0400 Body temperature 98.71 [degF] Elkin Oliva MD Work Phone: [facility] 03-25-2023 14:30-0400 Body weight 45.81 kg Elkin Oliva MD Work Phone: [facility] 03-25-2023 14:30-0400 Diastolic blood pressure 60 mm[Hg] Elkin Oliva MD Work Phone: [facility] 03-25-2023 14:30-0400 Heart rate 87 /min Elkin Oliva MD Work Phone: [facility] 03-25-2023 14:30-0400 Respiratory rate 18 /min Elkin Oliva MD Work Phone: [facility] 03-25-2023 14:30-0400 SaO2% (BldA) [Mass fraction] 97 % Elkin Oliva MD Work Phone: [facility] 03-25-2023 14:30-0400 Systolic blood pressure 104 mm[Hg] Elkin Oliva MD Work Phone: [facility] 03-13-2023 09:11-0400 Body height 158 cm JJ VELÁZQUEZ MD [facility] 03-13-2023 09:11-0400 Body temperature 98.06 [degF] JJ VELÁZQUEZ MD [facility] 03-13-2023 09:11-0400 Body weight 46.9 kg JJ VELÁZQUEZ MD [facility] 03-13-2023 09:11-0400 Diastolic Blood Pressure Non-Invasive 75 1 JJ VELÁZQUEZ MD [facility] 03-13-2023 09:11-0400 Heart rate 86 /min JJ VELÁZQUEZ MD [facility] 03-13-2023 09:11-0400 Systolic Blood Pressure Non-Invasive 111 1 JJ VELÁZQUEZ MD [facility] 03-07-2023 16:31-0400 Body height 157.5 cm Radames Worthy MD Work Phone: [facility] 03-07-2023 16:31-0400 Body weight 47.45 kg Radames Worthy MD Work Phone: [facility] 03-07-2023 16:31-0400 Diastolic blood pressure 58 mm[Hg] Radames Worthy MD Work Phone: [facility] 03-07-2023 16:31-0400 Heart rate 92 /min Radames Worthy MD Work Phone: [facility] 03-07-2023 16:31-0400 SaO2% (BldA) [Mass fraction] 100 % Radames Worthy MD Work Phone: [facility] 03-07-2023 16:31-0400 Systolic blood pressure 106 mm[Hg] Radames Worthy MD Work Phone: [facility] 01-29-2023 15:25-0400 Body temperature 97.81 [degF] Elkin Oliva MD Work Phone: [facility] 01-29-2023 15:25-0400 Body weight 47.63 kg Elkin Oliva MD Work Phone: [facility] 01-29-2023 15:25-0400 Diastolic blood pressure 62 mm[Hg] Elkin Oliva MD Work Phone: [facility] 01-29-2023 15:25-0400 Heart rate 79 /min Elkin Oliva MD Work Phone: [facility] 01-29-2023 15:25-0400 Respiratory rate 18 /min Elkin Oliva MD Work Phone: [facility] 01-29-2023 15:25-0400 SaO2% (BldA) [Mass fraction] 97 % Elkin Oliva MD Work Phone: [facility] 01-29-2023 15:25-0400 Systolic blood pressure 112 mm[Hg] Elkin Oliva MD Work Phone: [facility] 01-29-2023 09:48-0400 Body height 157.5 cm Radames Worthy MD Work Phone: [facility] 01-29-2023 09:48-0400 Body weight 46.27 kg Radames Worthy MD Work Phone: [facility] 01-29-2023 09:48-0400 Diastolic blood pressure 73 mm[Hg] Radames Worthy MD Work Phone: [facility] 01-29-2023 09:48-0400 Heart rate 108 /min Radames Worthy MD Work Phone: [facility] 01-29-2023 09:48-0400 Respiratory rate 16 /min Radames Worthy MD Work Phone: [facility] 01-29-2023 09:48-0400 SaO2% (BldA) [Mass fraction] 98 % Radames Worthy MD Work Phone: [facility] 01-29-2023 09:48-0400 Systolic blood pressure 122 mm[Hg] Radames Worthy MD Work Phone: [facility] 01-26-2023 08:27-0400 Body height 157.48 cm [facility] 01-26-2023 08:27-0400 Body mass index (BMI) [Ratio] 19 kg/m2 [facility] 01-26-2023 08:27-0400 Body temperature 97.1 [degF] [facility] 01-26-2023 08:27-0400 Body weight 47.17 kg [facility] 01-26-2023 08:27-0400 Diastolic blood pressure 95 mm[Hg] [facility] 01-26-2023 08:27-0400 Heart rate 108 /min [facility] 01-26-2023 08:27-0400 Respiratory rate 16 /min [facility] 01-26-2023 08:27-0400 SaO2% (BldA) [Mass fraction] 100 % [facility] 01-26-2023 08:27-0400 Systolic blood pressure 148 mm[Hg] [facility] 01-01-2023 10:59-0400 Body temperature 97.9 [degF] Elkin Oliva MD Work Phone: [facility] 01-01-2023 10:59-0400 Body weight 47.17 kg Elkin Oliva MD Work Phone: [facility] 01-01-2023 10:59-0400 Diastolic blood pressure 62 mm[Hg] Elkin Oliva MD Work Phone: [facility] 01-01-2023 10:59-0400 Heart rate 100 /min Elkin Oliva MD Work Phone: [facility] 01-01-2023 10:59-0400 Respiratory rate 18 /min Elkin Oliva MD Work Phone: [facility] 05-30-2023 10:59-0400 SaO2% (BldA) [Mass fraction] 98 % Elkin Oliva MD Work Phone: [facility] 01-01-2023 10:59-0400 Systolic blood pressure 112 mm[Hg] Elkin Oliva MD Work Phone: [facility] 11-08-2022 08:47-0400 Body height 157.5 cm Rod Rosales CONFERENCE TRANSLATOR.RADIO SURVEY WORKER Work Phone: [facility] 11-08-2022 08:47-0400 Body weight 46.72 kg Rod Rosales CONFERENCE TRANSLATOR.RADIO SURVEY WORKER Work Phone: [facility] 11-08-2022 08:47-0400 Diastolic blood pressure 70 mm[Hg] Rod Rosales CONFERENCE TRANSLATOR.RADIO SURVEY WORKER Work Phone: [facility] 11-08-2022 08:47-0400 Heart rate 88 /min Rod Rosales CONFERENCE TRANSLATOR.RADIO SURVEY WORKER Work Phone: [facility] 11-08-2022 08:47-0400 Respiratory rate 16 /min Rod Rosales CONFERENCE TRANSLATOR.RADIO SURVEY WORKER Work Phone: [facility] 11-08-2022 08:47-0400 SaO2% (BldA) [Mass fraction] 100 % Rod Rosales CONFERENCE TRANSLATOR.RADIO SURVEY WORKER Work Phone: [facility] 11-08-2022 08:47-0400 Systolic blood pressure 112 mm[Hg] Rod Rosales CONFERENCE TRANSLATOR.RADIO SURVEY WORKER Work Phone: [facility] 09-06-2022 12:30-0500 Body temperature 98.1 [degF] [facility] 09-06-2022 12:30-0500 Diastolic blood pressure 87 mm[Hg] [facility] 09-06-2022 12:30-0500 Heart rate 61 /min [facility] 09-06-2022 12:30-0500 Respiratory rate 16 /min [facility] 09-06-2022 12:30-0500 SaO2% (BldA) [Mass fraction] 100 % [facility] 2023 12:30-0500 Systolic blood pressure 120 mm[Hg] [facility] 09-06-2022 10:37-0500 Body height 157.48 cm [facility] 09-06-2022 10:37-0500 Body mass index (BMI) [Ratio] 18.8 kg/m2 [facility] 09-06-2022 10:37-0500 Body weight 46.72 kg [facility] 04-05-2022 14:54-0400 Body height 157.48 cm No Primary Care Physician [facility] Work Phone: 04-05-2022 14:53-0400 Body mass index (BMI) [Ratio] 18.3 kg/m2 No Primary Care Physician [facility] Work Phone: 04-05-2022 14:53-0400 Body weight 45.35 kg No Primary Care Physician [facility] Work Phone: 04-05-2022 14:53-0400 Diastolic blood pressure 70 mm[Hg] No Primary Care Physician [facility] Work Phone: 04-05-2022 14:53-0400 Systolic blood pressure 106 mm[Hg] No Primary Care Physician [facility] Work Phone: 11-16-2021 23:13-0400 Diastolic blood pressure 74 mm[Hg] Dr. Jose Feldman Work Phone: [facility] Work Phone: 11-16-2021 23:13-0400 Heart rate 74 /min Dr. Jose Feldman Work Phone: [facility] Work Phone: 11-16-2021 23:13-0400 Respiratory rate 17 /min Dr. Jose Feldman Work Phone: [facility] Work Phone: 11-16-2021 23:13-0400 SaO2% (BldA) [Mass fraction] 97 % Dr. Jose Feldman Work Phone: [facility] Work Phone: 11-16-2021 23:13-0400 Systolic blood pressure 121 mm[Hg] Dr. Jose Feldman Work Phone: [facility] Work Phone: 11-16-2021 19:44-0400 Body height 157.[address] Jose Feldman Work Phone: [facility] Work Phone: 11-16-2021 19:44-0400 Body mass index (BMI) [Ratio] 18.6 kg/m2 Dr. Jose Feldman Work Phone: [facility] Work Phone: 11-16-2021 19:44-0400 Body temperature 96.8 [degF] Dr. Jose Feldman Work Phone: [facility] Work Phone: 11-16-2021 19:44-0400 Body weight 46.[address] Jose Feldman Work Phone: [facility] Work Phone: 09-28-2021 12:23-0500 Body mass index (BMI) [Ratio] 19.4 kg/m2 Dr. Jose Feldman Work Phone: [facility] Work Phone: 09-28-2021 12:23-0500 Body weight 48.[address] Jose Feldman Work Phone: [facility] Work Phone: 09-28-2021 12:23-0500 Diastolic blood pressure 78 mm[Hg] Dr. Jose Feldman Work Phone: [facility] Work Phone: 09-28-2021 12:23-0500 Systolic blood pressure 104 mm[Hg] Dr. Jose Feldman Work Phone: [facility] Work Phone: Encounters Encounter Date Encounter Type Care Provider Facility Start: 01-13-2025 ambulatory Mahnaz Bony Facility :[facility] Start: 01-11-2025 End: 01-11-2025 Patient encounter procedure Mahnaz Lovett [facility] Work Phone: Start: 01-11-2025 End: 01-11-[address] Elkin Oliva MD Work Phone: [facility] Work Phone: Start: 11-27-2024 End: 11-27-2024 Patient encounter procedure Mahnaz Lovett [facility] Work Phone: Start: 11-27-2024 End: 11-27-2024 ambulatory Elkin [facility] Facility:[facility] Start: 11-02-2024 End: 11-02-2024 [facility] Start: 11-02-2024 End: 11-02-2024 Office outpatient visit 25 minutes Rod Rosales APRN.RADIO SURVEY WORKER Work Phone: [facility] [place] Comment on above: PTSD (post-traumatic stress disorder) (Primary Dx); Irregular menses; Encounter for immunization; Migraine with aura and without status migrainosus, not intractable; Tobacco use Start: 10-19-2024 End: 10-19-[address] Nohelia Munroe DO -[facility] Work Phone: Start: 10-19-2024 End: 10-19-2024 ambulatory Elkin Oliva Facility:[facility] Start: 10-15-2024 End: 12-15-2024 Follow-up encounter Rod Rosales APRN.RADIO SURVEY WORKER Work Phone: [facility] [place] Start: 09-04-2024 End: 09-04-2024 ambulatory ELKIN OLIVA Facility:[place] Start: 09-04-2024 End: 09-04-2024 Office outpatient visit 25 minutes Rod Rosales APRN.RADIO SURVEY WORKER Work Phone: [facility] [place] Comment on above: Irregular menses (Pr imary Dx); Migraine with aura and without status migrainosus, not intractable; Chronic daily headache; PTSD (post-traumatic stress disorder) Start: 09-04-2024 End: 09-04-2024 ambulatory ELKIN OLIVA Facility:[place] Start: 08-23-2024 End: 08-24-2024 ambulatory Elkin Oliva MD Work Phone: [facility] [place] Start: 08-23-2024 End: 08-24-2024 Patient encounter procedure Elkin Oliva MD Work Phone: [facility] [place] Comment on above: Schedule Appointment Start: 06-25-2024 End: 06-25-2024 ambulatory Mahnaz Lovett Facility:[facility] Start: 06-15-2024 Encounter for gynecological examination (general) (routine) without abnormal findings Mahnaz Lovett [facility] Start: 06-15-2024 End: 06-15-2024 ambulatory Elkin Oliva Facility:[facility] Start: 06-15-2024 End: 06-15-2024 ambulatory Elkin Oliva Facility:[facility] Start: 05-06-2024 End: 05-06-2024 ambulatory Elkin Oliva Facility:[facility] Start: 01-14-2024 End: 01-14-2024 Patient encounter procedure Catherine Maria APRN.CNP Work Phone: Psychiatry Comment on above: NO SHOW (Primary Dx) Start: 01-06-2024 End: 01-06-2024 Office outpatient visit 15 minutes Elkin Oliva MD Work Phone: [facility] [place] Comment on above: Migraine with aura a nd without status migrainosus, not intractable (Primary Dx); Muscle spasm; Major depressive disorder in partial remission, unspecified whether recurrent (HCC) Start: 01-06-2024 End: 01-06-2024 ambulatory ELKIN OLIVA Facility:[place] Start: 11-15-2023 Telephone encounter Elkin funes MD Work Phone: [facility] [place] Comment on above: requesting referral Start: 09-26-2023 End: 09-26-2023 Admission to same day surgery center Dr. Elkin Oliva Work Phone: [facility] Start: 09-26-2023 End: 09-26-[address] Elkin Oliva Work Phone: [facility] Work Phone: Start: 08-28-2023 End: 08-28-2023 Emergency department patient visit Dr. Elkin Oliva Work Phone: [facility] Work Phone: Start: 07-25-2023 End: 07-25-[address] Elkin Oliva Work Phone: [facility] Work Phone: Start: 07-25-2023 End: 07-25-[address] Elkin Oliva Work Phone: [facility] Specimen Work Phone: Start: 07-25-2023 End: 07-25-[address] Elkin Oliva Work Phone: [facility] Work Phone: Start: 07-19-2023 End: 07-19-2023 Emergency department patient visit Dr. Elkin Oliva Work Phone: [facility] Work Phone: Start: 07-10-2023 Refill Radames Worthy MD Work Phone: Neurology Comment on above: Refill Request Start: 06-14-2023 End: 06-14-[address] Elkin Oliva Work Phone: [facility] Work Phone: Start: 06-14-2023 End: 06-14-[address] Elkin Oliva Work Phone: [facility] Work Phone: Start: 06-14-2023 End: 06-14-[address] Elkin Oliva Work Phone: [facility] Work Phone: Start: 03-26-2023 Telephone encounter Radames salgado MD Work Phone: Neurology Comment on above: Medication Question Start: 03-26-2023 End: 03-26-2023 ambulatory JJ VELÁZQUEZ MD Facility:A Start: 03-26-2023 End: 03-26-2023 SAME DAY STAY JJ VELÁZQUEZ MD [facility] Start: 03-25-2023 End: 03-25-2023 Office outpatient visit 15 minutes Elkin Oliva MD Work Phone: [facility] [place] Comment on above: Muscle spasm (Primar y Dx); Migraine with aura and without status migrainosus, not intractable; Chronic daily headache Start: 03-24-2023 Refill Rod Rosales APRN.RADIO SURVEY WORKER Work Phone: [facility] [place] Comment on above: Refill Request Start: 03-13-2023 End: 03-18-2023 ambulatory JOSEPH POE 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 Facility:[facility] Start: 03-13-2023 End: 03-14-2023 ambulatory JJ VELÁZQUEZ MD Facility:[facility] Start: 03-13-2023 End: 03-13-2023 Admission to establishment JJ VELÁZQUEZ MD [facility] Start: 03-07-2023 End: 03-07-2023 Office outpatient visit 25 minutes Radames Worthy MD Work Phone: Neurology Comment on above: Chronic daily headac he (Primary Dx) Start: 03-06-2023 End: 03-11-2023 ambulatory JOSEPH POE 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 Facility:[facility] Start: 03-06-2023 End: 03-06-2023 Patient encounter procedure JOSEPH POE CONFERENCE TRANSLATOR-BUILDING RENTAL SUPERINTENDENT [facility] Start: 02-28-2023 Refill Radames Worthy MD Work Phone: Neurology Comment on above: Refill Request Start: 02-18-2023 Telephone encounter Radames salgado MD Work Phone: Neurology Comment on above: Medication Problem ( amitriptyline (ELAVIL) 10 mg tablet) Start: 01-29-2023 End: 01-29-2023 Office outpatient visit 15 minutes Elkin Oliva MD Work Phone: [facility] [place] Comment on above: Acute cystitis with hematuria (Primary Dx) Start: 01-29-2023 End: 01-30-2023 ambulatory ELKIN OLIVA Facility:[facility] Start: 01-29-2023 End: 01-29-2023 Office outpatient new 45 minutes Radames Worthy MD Work Phone: Neurology Comment on above: Migraine with aura a nd without status migrainosus, not intractable (Primary Dx); Chronic daily headache Start: 01-28-2023 Telephone encounter Elkin funes MD Work Phone: [facility] [place] Comment on above: [facility] ER update; Resul ts Start: 01-26-2023 End: 01-26-2023 [facility] Start: 01-24-2023 Refill Elkin boland MD Work Phone: [facility] [place] Comment on above: Refill Request FMLA Forms Start: 01-16-2023 End: 01-17-2023 ambulatory JJ VELÁZQUEZ MD Facility: Start: 01-16-2023 End: 01-16-2023 Patient encounter procedure JJ VELÁZQUEZ MD [facility] Start: 01-02-2023 Telephone encounter Elkin funes MD Work Phone: [facility] [place] Comment on above: Disability and leave forms from [place] Start: 01-01-2023 End: 01-01-2023 Office outpatient visit 25 minutes Elkin Oliva MD Work Phone: [facility] [place] Comment on above: Migraine with aura a nd without status migrainosus, not intractable (Primary Dx); Chronic daily headache; PTSD (post-traumatic stress disorder); Interstitial cystitis; Eosinophilic cystitis Start: 12-19-2022 End: 12-19-2022 ambulatory Mirtha Savage CONFERENCE TRANSLATOR.BUILDING RENTAL SUPERINTENDENT Work Phone: Telemedicine Comment on above: Treatment not availa ble (Primary Dx) Procedure and treatm ent not carried out for other reasons (Primary Dx) Virtual Visit Start: 12-19-2022 E-mail encounter fro m caregiver Mirtha Savage CONFERENCE TRANSLATOR.BUILDING RENTAL SUPERINTENDENT Work Phone: [facility] Start: 12-19-2022 End: 12-19-2022 Telemedicine consultation with patient Mirtha Savage APRN.BUILDING RENTAL SUPERINTENDENT Work Phone: [facility] Start: 11-08-2022 End: 11-08-2022 Patient encounter procedure Rod Rosales LORENA.RADIO SURVEY WORKER Work Phone: [facility] [place] Comment on above: History of headache (Primary Dx); PTSD (post-traumatic stress disorder); Acute nonintractable headache, unspecified headache type; Interstitial cystitis Start: 11-05-2022 Telephone encounter Jeni barakat MD Work Phone: [facility] [place] Comment on above: FMLA Paperwork Start: 10-25-2022 End: 10-26-2022 ambulatory JOSEPH POE 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 Facility:[facility] Start: 10-25-2022 End: 10-25-2022 Patient encounter procedure JOSEPH POE 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 [facility] Start: 09-06-2022 End: 09-06-2022 Admission to same day surgery center [facility] Start: 09-06-2022 End: 09-06-2022 ambulatory [facility] Work Phone: Start: 04-25-2022 End: 04-25-2022 ambulatory No Primary Care Physician [facility] Work Phone: Start: 04-25-2022 End: 04-25-2022 Patient encounter procedure No Primary Care Physician [facility]Cat Scan, [facility] Start: 04-18-2022 End: 04-18-2022 ambulatory No Primary Care Physician [facility] Work Phone: Start: 04-18-2022 End: 04-18-2022 Patient encounter procedure No Primary Care Physician [facility]Ultrasound, [facility] Start: 04-05-2022 End: 04-05-2022 ambulatory No Primary Care Physician [facility] Work Phone: Start: 04-05-2022 End: 04-05-2022 Patient encounter procedure No Primary Care Physician [facility] Start: 11-16-2021 End: 11-16-2021 Emergency department patient visit Dr. Jose Feldman Work Phone: [facility] Start: 09-28-2021 End: 09-28-[address] Jose Feldman Work Phone: [facility] Start: 09-28-2021 End: 09-28-[address] Jose Feldman Work Phone: [facility]Laboratory, Specimen Procedures Date Procedure Procedure Detail Performing Clinician Start: 01-06-2024 Adult depression scr eening assessment Elkin Oliva MD Work Phone: Start: 09-26-2023 Cysto,Biopsy,Fulgura tion,B ladder Tumor (Not Applicable) Dr. Elkin Oliva Work Phone: Start: 08-28-2023 Computed tomography of abdomen and pelvis with intravenous contrast Dr. Elkin Oliva Work Phone: Start: 07-19-[address] Elkin Oliva Work Phone: Start: 06-14-[address] Elkin Oliva Work Phone: Start: 09-06-2022 Cysto,Biopsy,Fulgura tion,B ladder Tumor (Not Applicable) Start: 04-25-2022 Computed tomography of abdomen and pelvis with contrast No Primary Care Physician Start: 04-18-2022 Pelvic echography No Pr imary Care Physician Start: 04-18-2022 Transvaginal echography No Primary Care Physician Start: 04-05-2022 Cystoscopy JJ BEGUM MD Start: 11-16-2021 End: 11-16-[address] Jose Feldman Work Phone: Start: 09-28-[address] Jose Feldman Work Phone: Start: 08-05-2019 section ROB VELÁZQUEZ MD section JOSEPH DAVIS CONFERENCE TRANSLATOR-BUILDING RENTAL SUPERINTENDENT Cystoscopy JOSEPH POE CONFERENCE TRANSLATOR-BUILDING RENTAL SUPERINTENDENT Urine culture No Primary Car e Physician Plan of Treatment Date Care Activity Detail Author Start: 03-24-2030 Urine microalbumin profile [facility] Start: 06-15-2027 Screening for malign ant neoplasm of cervix Cervical Cancer Screening [facility] Start: 06-14-2026 Pap Testing Pap Testing [facility] Start: 06-14-2026 Screening for malign ant neoplasm of cervix [facility] Start: 04-05-2025 Influenza vaccination Influenz a Vaccine (Season Ended) [facility] Start: 03-03-2025 End: 03-03-2025 Patient encounter procedure 03/03/2025 3:40 PM EDT Office Visit [facility] [place] [address] [place] [address] Elkin Oliva MD [address] [place] [address] 6 month f/u [facility] [place] Comment on above: 6 month f/u Start: 01-05-2025 Depression Screening Depression Scre ening [facility] Start: 11-02-2024 End: 11-02-2024 Patient encounter procedure 11/02/2024 11:00 AM EDT Office Visit [facility] [place] [address] [facility] [place] [place] [address] Rod Rosales APRN.RADIO SURVEY WORKER [address] [facility] [place] [address] 1-2 month follow up [facility] [place] Comment on above: 1-2 month follow up Start: 09-04-2024 End: 12-04-2024 17-Hydroxyprogesterone [Mass/volume] in Serum or Plasma [facility] Comment on above: Expected: 09/04/2024 (Approximate), Expires: 12/04/2024 Start: 09-04-2024 End: 12-04-2024 Hemoglobin A1c in Blood [facility] Comment on above: Expected: 09/04/2024 (Approximate), Expires: 12/04/2024 Start: 09-04-2024 End: 12-04-2024 Insulin [Units/volume] in Serum or Plasma [facility] Work Phone: Comment on above: Expected: 09/04/2024 (Approximate), Expires: 12/04/2024 Start: 08-25-2024 End: 08-25-2024 Patient encounter procedure 08/25/2024 11:00 AM EST Office Visit [facility] [place] [address] [facility] [place] [place] [address] Elkin Oliva MD [address] [facility] [place] [address] Hormone imbalance [facility] [place] Comment on above: Hormone imbalance Start: 07-14-2024 End: 07-14-2024 Patient encounter procedure 07/14/2024 6:40 PM EST Office Visit [facility] [place] [address] [facility] [place] [address] Elkin Oliva MD [address] [facility] [place], [place] [id number] 6 month follow up [facility] [place] Comment on above: 6 month follow up Start: 04-05-2024 Covid-19 Vaccine () Covid-19 Vaccine () [facility] Start: 04-05-2024 Influenza vaccination [facility] Start: 01-30-2024 COVID-19 VACCINE (#1) COVID-19 VACCI NE (#1) [facility] Comment on above: Postponed from 08/03 (Declined at this time) Start: 09-26-2023 Patient discharge [facility] Start: 08-28-2023 [facility] Start: 08-28-2023 Measurement of occul t blood in stool specimen using immunoassay [facility] Start: 08-05-2023 Behavioral Health Screening Behavioral Health Screening [facility] Start: 07-19-2023 [facility] Start: 07-19-2023 [facility] Start: 07-19-2023 Bacteria identified in Urine by Culture Urine Culture [facility] Start: 06-14-2023 Liquid based cervica l cytology screening [facility] Start: 04-05-2023 Covid-19 Vaccine ( season) Covid-19 Vaccine ( season) [facility] Start: 04-05-2023 Influenza vaccination C [facility] Start: 01-26-2023 [facility] Start: 01-26-2023 [facility] Start: 09-06-2022 Patient discharge [facility] Start: 08-05-2022 DEPRESSION ASSESSMENT DEPRESSION ASS ESSMENT [facility] Start: 04-05-2022 Patient referral [facility] Work Phone: Start: 02-01-2017 PAP TESTING PAP TESTING [facility] Start: 02-01-2015 Pneumococcal vaccination Pneumococcal Vaccine (1 of 2 - PCV) [facility] Start: 02-01-2015 Urine microalbumin profile DTAP,TDAP,TD (1 - Tdap) [facility] Start: 02-01-2010 PEDS TO ADULT TRANSITION ANNUAL ASSESSMENT PEDS TO ADULT TRANSITION ANNUAL ASSESSMENT [facility] Start: 2008 PEDS TO ADULT TRANSITION INITIAL DISCUSSION PEDS TO ADULT TRANSITION INITIAL DISCUSSION [facility] Start: 02-01-2007 HPV VACCINE (1 - 2-d ose series) HPV VACCINE (1 - 2-dose series) [facility] Start: 02-01-2005 HPV VACCINE (1 - 2-d ose series) HPV VACCINE (1 - 2-dose series) [facility] Start: 02-01-2002 PNEUMOCOCCAL (1 - PCV) PNEUMOCOCCAL (1 - PCV) [facility] Start: 02-01-2002 Pneumococcal vaccination [facility] Start: 1996 COVID-19 VACCINE (#1) COVID-19 VACCI NE (#1) [facility] Start: 1996 HEPATITIS B (1 of 3 - 3-dose series) HEPATITIS B (1 of 3 - 3-dose series) [facility] Bacteria identified in Urine by Culture Urine Culture [facility] Path report.final Dx Spec [facility] Patient Education [facility] Work Phone: Patient referral [facility] Work Phone: [facility] Work Phone: US Pelvis transvaginal [facility] Work Phone: Pelvis transvaginal [facility] Immunizations Immunization Date Immunization Notes Care Provider Fa cili 04-08-2020 Flucelvax Quad [id number] (PF) (flu vac qs 2020(4 yr up)CD(PF)) 60 mcg ([address] Jose Feldman Work Phone: [facility] Work Phone: 04-08-2020 Influenza, injectabl e, Madin [place] Canine Kidney, preservative free, quadrivalent Rod Rosales CONFERENCE TRANSLATOR.RADIO SURVEY WORKER Work Phone: [facility] Work Phone: 04-08-2020 influenza virus vaccine, unspecified formulation Elkin Oliva MD Work Phone: [facility] 04-07-2020 influenza, injectabl e, quadrivalent, preservative free Dr. Elkin Oliva Work Phone: [facility] 04-07-2020 influenza, seasonal, injectable Dr. Jose Feldman Work Phone: [facility] 03-24-2020 diphtheria, tetanus toxoids and acellular pertussis vaccine, unspecified formulation Dr. Jose Feldman Work Phone: [facility] Work Phone: 03-24-2020 tetanus toxoid, redu ron diphtheria toxoid, and acellular pertussis vaccine, adsorbed Dr. Jose Feldman Work Phone: [facility] 07-17-2003 influenza nasal, unspecified formulation Rod Bobby CONFERENCE TRANSLATOR.RADIO SURVEY WORKER Work Phone: [facility] 07-17-2003 influenza virus vaccine, unspecified formulation JJ VELÁZQUEZ MD [facility] 07-17-2003 influenza, seasonal, injectable Rod Rosales CONFERENCE TRANSLATOR.RADIO SURVEY WORKER Work Phone: [facility] Work Phone: 03-27-2001 diphtheria, tetanus toxoids and acellular pertussis vaccine, unspecified formulation Rod Rosales CONFERENCE TRANSLATOR.RADIO SURVEY WORKER Work Phone: [facility] Work Phone: 03-27-2001 measles, mumps and rubella virus vaccine Rod Rosales CONFERENCE TRANSLATOR.RADIO SURVEY WORKER Work Phone: [facility] Work Phone: 03-27-2001 measles/mumps/rubell a virus vaccine JJ VELÁZQUEZ MD [facility] 03-27-2001 poliovirus vaccine, unspecified formulation Rod Rosales CONFERENCE TRANSLATOR.RADIO SURVEY WORKER Work Phone: [facility] Work Phone: 11-23-1997 haemophilus influenz ae type b vaccine, conjugate unspecified formulation Rod Rosales CONFERENCE TRANSLATOR.RADIO SURVEY WORKER Work Phone: [facility] Work Phone: 08-10-1997 diphtheria, tetanus toxoids and pertussis vaccine Ord Bobby CONFERENCE TRANSLATOR.RADIO SURVEY WORKER Work Phone: [facility] Work Phone: 08-10-1997 poliovirus vaccine, unspecified formulation Rod Rosales CONFERENCE TRANSLATOR.RADIO SURVEY WORKER Work Phone: [facility] Work Phone: 05-07-1997 measles, mumps and rubella virus vaccine Rod Rosales CONFERENCE TRANSLATOR.RADIO SURVEY WORKER Work Phone: [facility] Work Phone: 05-07-1997 measles/mumps/rubell a virus vaccine JJ VELÁZQUEZ MD [facility] 05-07-1997 varicella virus vaccine Sonia i Rosales CONFERENCE TRANSLATOR.RADIO SURVEY WORKER Work Phone: [facility] Work Phone: 02-04-1997 diphtheria, tetanus toxoids and pertussis vaccine Rod Rosales CONFERENCE TRANSLATOR.RADIO SURVEY WORKER Work Phone: [facility] Work Phone: 02-04-1997 haemophilus influenz ae type b vaccine, conjugate unspecified formulation Rod Rosales CONFERENCE TRANSLATOR.RADIO SURVEY WORKER Work Phone: [facility] Work Phone: 1996 diphtheria, tetanus toxoids and pertussis vaccine Rod Rosales CONFERENCE TRANSLATOR.RADIO SURVEY WORKER Work Phone: [facility] Work Phone: 1996 haemophilus influenz ae type b vaccine, conjugate unspecified formulation Rod Carrascos CONFERENCE TRANSLATOR.RADIO SURVEY WORKER Work Phone: [facility] Work Phone: 1996 hepatitis B pediatri c vaccine JJ VELÁZQUEZ MD [facility] 1996 hepatitis B vaccine, pediatric or pediatric/adolescent dosage Rod Bobby CONFERENCE TRANSLATOR.RADIO SURVEY WORKER Work Phone: [facility] Work Phone: 1996 poliovirus vaccine, unspecified formulation Rod Carrascos CONFERENCE TRANSLATOR.RADIO SURVEY WORKER Work Phone: [facility] Work Phone: 1996 diphtheria, tetanus toxoids and pertussis vaccine Rod Rosales CONFERENCE TRANSLATOR.RADIO SURVEY WORKER Work Phone: [facility] Work Phone: 1996 haemophilus influenz ae type b vaccine, conjugate unspecified formulation Rod Bobby CONFERENCE TRANSLATOR.RADIO SURVEY WORKER Work Phone: [facility] Work Phone: 1996 hepatitis B pediatri c vaccine JJ VELÁZQUEZ MD [facility] 1996 hepatitis B vaccine, pediatric or pediatric/adolescent dosage Rod Bobby CONFERENCE TRANSLATOR.RADIO SURVEY WORKER Work Phone: [facility] Work Phone: 1996 poliovirus vaccine, unspecified formulation Rod Rosales CONFERENCE TRANSLATOR.RADIO SURVEY WORKER Work Phone: [facility] Work Phone: 1996 hepatitis B pediatri c vaccine JJ VELÁZQUEZ MD [facility] 1996 hepatitis B vaccine, pediatric or pediatric/adolescent dosage Rod Bobby CONFERENCE TRANSLATOR.RADIO SURVEY WORKER Work Phone: [facility] Work Phone: Payers Date Payer Category Payer Self-pay [id number] 2022 Medicaid [id number] 2021 Unknown [id number] 1996 Unknown [id number] 1996 Unknown [id number] 1996 Unknown [id number] 1995 Unknown [id number] 2.16.8 [id number] 1995 Unknown [id number] 2.16.8 [id number] 1996 Unknown [id number] 2.16.8 40.1.782564.3.579.2.627 1996 Unknown [id number] 2.16.8 40.1.512632.3.579.2.627 1996 Unknown [id number] 2.16.8 40.1.663074.3.579.2.627 Unknown [id number] Unknown [id number] Unknown [id number] Unknown [facility] [id number] Unknown [id number] 2.16.8 [id number] Unknown [id number] 2.16.8 40.1.138756.3.579.2.462 Unknown [id number] 2.16.8 40.1.460297.3.579.2.462 Unknown [id number] 2.16.8 [id number] Unknown [id number] 2.16.8 40.1.152413.3.579.2.462 Unknown [id number] 2.16.8 40.1.923629.3.579.2.462 Unknown [id number] 2.16.8 40.1.010849.3.579.2.462 Unknown [id number] 2.16.8 [id number] Social History Date Type Detail Facility [facility] Work Phone: Start: 11-16-2021 End: 07-19-2023 Tobacco smoking status OHIS Unknown if ever smoked [facility] Start: 1995 Sex Assigned At Female W [facility] Start: 10-25-2022 End: 03-13-2023 Tobacco smoking status Light tobacco smoker (finding) [facility] Sex Assigned At Sex [facility] Start: 10-07-2019 End: 10-19-2024 Tobacco smoking status NHIS Smokes tobacco daily [facility] History of tobacco use Cigarette Smoker C [facility] Start: 10-07-2019 End: 08-25-2024 Cigarettes smoked current (pack per day) - Reported 0.5 [facility] Start: 10-07-2019 End: 09-04-2024 Tobacco use and exposure Smokeless tobacco non-user [facility] Start: 10-07-2019 End: 09-04-2024 Alcohol intake Current non-drinker of alcohol (finding) [facility] Start: 11-07-2022 History SDOH Alcohol Frequency 1 [facility] Start: 11-07-2022 History SDOH Alcohol Std Drinks 0 [facility] Start: 11-07-2022 History SDOH Social Connections Phone 3 [facility] Start: 11-07-2022 History SDOH Social Connections Membership 2 [facility] Start: 11-07-2022 History SDOH Social Connections Living 8 [facility] Start: 11-07-2022 History SDOH Physica l Activity DPW 5 [facility] Start: 11-07-2022 History SDOH Physica l Activity MPS 15 [facility] Start: 11-07-2022 History SDOH Stress 4 [facility] Start: 11-06-2022 End: 08-25-2024 Social connection and isolation panel [facility] Do you belong to any clubs or organizations such as catholic groups, unions, fraternal or athletic groups, or school groups? No [facility] Are you now , , , , never or living with a partner? Living with partner [facility] How often to you hav e a drink containing alcohol? Never [facility] How many standard drinks containing alcohol do you have on a typical day? Patient does not drink [facility] How hard is it for y ou to pay for the very basics like food, housing, medical care, and heating Not very hard [facility] Do you feel stress - tense, restless, nervous, or anxious, or unable to sleep at night because your mind is troubled all the time - these days [OSQ] Rather much [facility] (I/We) worried wheth er (my/our) food would run out before (I/we) got money to buy more. Never true [facility] Start: 11-06-2022 Gender identity Identifies as female gender (finding) [facility] Start: 11-06-2022 Sexual orientation Heterosexual (allan cherry) [facility] Are you now , , , , never or living with a partner? Never [facility] How hard is it for y ou to pay for the very basics like food, housing, medical care, and heating Somewhat hard [facility] (I/We) worried wheth er (my/our) food would run out before (I/we) got money to buy more. Sometimes true [facility] In the past 12 month s, was there a time when you were not able to pay the mortgage or rent on time? Yes [facility] NEGATED: Highlighted row [facility] Goals Date Patient Goal Desired Activity /State Functional Status Date Assessment Result Facility 09-26-2023 Functional status Ambulates [facility] Work Phone: 03-26-2023 Functional Status Assistive Device None [facility] 03-26-2023 Functional Status Awake, Resting [facility] 03-26-2023 Functional Status [facility] 03-26-2023 Functional Status Maintained [facility] 03-13-2023 Functional Status Sensory Deficits None [facility] Mental Status Date Assessment Result Facility 09-26-2023 Cognitive function Voice/Name;Light Pain [facility] Work Phone: 07-19-2023 Cognitive function Level Of Cons ciousness Awake;Alert;Appropriate;Follow s Commands [facility] Work Phone: 03-26-2023 Mental Status Oriented x 4 [facility] 03-26-2023 Mental Status [facility] 03-26-2023 Mental Status Orientation Asse ssment Oriented x 4 [facility] 09-06-2022 Cognitive function Voice/Name [facility] Work Phone: Clinical Notes 09-06-2022 to 01-11-2025 Note Date & Type Note Facility 01-11-2025 Progress note [facility] 01-11-2025 Progress note Note Date/Time January 11, 2025 2:14pm [facility] [address] [place] [address], [address] [place] [address] OFFICE VISIT Date of Service: 01/11/25 MR#: [id number] Acct: [id number] Name: RIDDHI MEDLEY Rep #: [id number] : 1995 Provider: PERFECTO Lovett Age/Sex: 29/F Location: [facility] [place] Status: Signed Intake Vital Signs 11/27/24 13:40 01/11/25 14:02 Height 5 ft 2 in 5 ft 2 in Weight: 119 lb 116 lb 6 oz BMI 21.7 21.2 BP 124/80 H 128/83 H Intake Visit Reasons: IUD check Lighter Required: No Is patient in pain?: Yes (pelvic pain, increased when walking) Allergies amitriptyline Adverse Reaction (Intermediate, Verified 01/11/25 14:05) confusion Medications ?Medication ?Instructions ?Recorded ?Confirmed ?Type Lactobacillus acidophilus 250 500 mmu cells PO DAILY 0 09/18/23 01/11/25 History million cell capsule (Probiotic Acidophilus) cephalexin 250 mg capsule 250 mg PO QHS 09/18/2301/11 History cyclobenzaprine 5 mg tablet 5 mg PO TID PRN SPASMS 01/11/25 History d-mannose 500 mg capsule 1,000 mg PO DAILY 09/18/23 0 01/11/25 History mirabegron 25 mg tablet,extended 50 mg PO QHS 09/18/23 01/11/25 History release 24 hr (Myrbetriq) nitrofurantoin 100 mg PO BID interstitial c ystisis 06/15/24 01/11/25 History monohydrate/macrocrystals 100 mg capsule (Macrobid) buspirone 5 mg tablet 5 mg PO TID PRN anxiety #30 tabs 10/19/24 01/11/25 Rx citalopram 10 mg tablet 10 mg PO QDAY 10/19/2401/11 History levonorgestrel (Mirena) 1 device intrauterine ONCE 0 01/11/25 01/11/25 History Post menopausal: No Patient : No : No PFSH Medical History Lesion of cervix Low grade squamous intraepithelial dysplasia Syncope Gastric reflux Constipation History of GI bleed PTSD (post-traumatic stress disorder) Marijuana use Anemia Easy bruising Vapes nicotine containing substance Bladder ulcer Dietary restriction Migraine Gestational hypertension History of depression History of anxiety Surgical History History of cystoscopy History of cystoscopy History of cystoscopy delivery delivered Family History Grandmother Diabetes Breast cancer Grandfather Diabetes Vagzt-8-feieuxyoris deficiency Social History Smoking Status: Current every day smoker tobacco type: e-cigarettes Electronic Cigarette Use: with nicotine alcohol intake: never substance use type: does not use caffeine: Yes (rarely) what type of physical activity do you participate in: walking and other details: 20,000 steps per day seatbelt use: always do you feel safe at home: Yes additional social history: Boyfriend-Gerardo Hamzah Patient works at [employer] IUD check Details: RIDDHI MEDLEY is a 29 year old who presents for IUD check. Is not having pain withintercourse but occasionally has pain after. irregular spotting with IUD as well. Female Reproductive History Last Menstrual Period: 01/10/25 Questions: sexually active: Yes, dyspareunia: No and PCB: No History 2 Elective abortions Hx Para 1 Spontaneous abortions 1 Hx # Term Pregnancies Ectopic pregnancies Hx # Pregnancies Multiple births # of living children 1 Past Pregnancies Del. Date Name GA/Weeks Outcome Route Bth Weight Infant Gen Labor Lgth Anes thes ia Del Locatn Provider FOB 06/06/20 Beck 38 live - full term Male ep idural [facility] Delivery Date: 06/06/20 Last Updated by: Linda Valenzuela IOL GHTN; cord prolapse STAT LTCS ROS Const Constitutional: Reports system reviewed and no additional complaints, except as documented Cardio Card: Reports system reviewed and no additional complaints, except as documented Resp Resp: Reports system reviewed and no additional complaints, except as documented GI GI: Reports system reviewed and no additional complaints, except as documented : Reports system reviewed and no additional complaints, except as documented; Denies difficulty voiding, dysuria or urinary frequency Skin Skin/Breast: Reports system reviewed and no additional complaints, except as documented Neuro Neuro: Reports system reviewed and no additional complaints, except as documented Psych Psych: Reports system reviewed and no additional complaints, except as documented; Denies anhedonia, anxiety or depression Exam Const General: cooperative, healthy appearing, comfortable and no acute distress Orientation: alert, awake and oriented x3 Resp Effort & Inspection: normal respiratory effort, able to speak in complete sentences and symmetric chest movement GI Inspection: normal to inspection Palpation: soft Rectal Exam: visual inspection normal External Female Exam: normal external appearance and normal appearance of the urethra Urethra: normal appearance of the urethra Speculum Exam - Vagina: normal appearance of the vagina and normal vaginal discharge Speculum Exam - Cervix: normal appearance of the cervix (strings noted) and nontender Bimanual Exam- Vagina & Uterus: normal bimanual exam, normal palpation and No tender Bimanual Exam- Adnexa, other: normal Pelvic Support: normal Skin General: no rashes or lesions noted Neuro General: patient alert, patient awake and patient oriented x3 Cognition: normal cognition Speech: speech normal Gait: normal gait Extrem General: normal to inspection and full ROM Psych Appearance: grossly normal and well kempt Mental Status: mental status grossly normal Affect: normal affect Speech and Movement: speech and movement normal Attitude: cooperative Thought Process: normal Thought Content: normal Judgment: judgment good Coding Level of Care Code Off vis,est,level 3 Diagnoses Pelvic pain R10.2 IUD check up Z30.431 Assessment and Plan Assessment and Plan (1) Pelvic pain: Status: Acute Plan: transvaginal US (2) IUD check up: Status: Acute Orders: Orders Transvaginal Non- Today R10.2 - Pelvic and perineal pain 01/11/25 1414 <Electronically signed by Mahnaz boland CNM> Date _ Mahnaz Bony GROVE Cosigner Signature: Date (if applicable) CC: ~ [facility] Work Phone: [phone] Instructions* Patient Instructions* Rod Rosales APRN.CNS - 11/02/2024 11:38 AM EDT - Continue taking Citalopram 10 mg daily as prescribed. - Continue taking Buspirone as prescribed by your lumpia wrapper maker. - Follow up with your lumpia wrapper maker at the end of November for a change in control. - Consider reducing vaping as part of a long-term health goal. - Next follow-up appointment is in February. documented in [facility] History of Present illness Narrative* Rod Rosales APRN.CNS - 11/02/2024 11:00 AM EDT SUBJECTIVE: Pneumococcal Vaccine(1 of 2 - PCV) Never done Influenza Vaccine(1) due on 04/05/2024 Covid-19 Vaccine(2023- season) Never done HPI Riddhi Medley is a 29 year old female. PMH significant for ACTIVE PROBLEM LIST History of Urinary Tract Infection Interstitial Cystitis Abnormal Uterine Bleeding Pelvic and Perineal Pain History of Headache Ptsd (Post-Traumatic Stress Disorder) Presents today for a recheck. HPI excerpted from previous visit: She is concerned about possible hormone imbalance. She is interested in completing some lab work tocheck this. She reports irregular menstrual cycle. She reports recently having a heavy 2-week long cycle with small clots. She is followed by Dr. Jackson SR. DIRECTOR PRODUCT MANAGEMENT. She reports that she has a Nexplanon in place. She notes she is due for a follow-up visit. She reports history of migraine with aura, previously seen by Dr. Worthy. Last visit 2022. Has hadtriptans prescribed in the past. Have been effective. She also uses Excedrin Migraine when needed. She notes multiple triggers for migraines. She reports 15 headaches per month perhaps more. Continues to follow with Emma Schilling MD urology asking for interstitial cystitis. Missed her appointment with psychiatry for PTSD. Would like to see seen for this. Anxiety: - Started on citalopram 10 mg and buspirone since last visit. - Reports significant improvement in anxiety symptoms with buspirone. - Prefers to maintain current medication regimen, especially with upcoming control change. - Previously saw a psychiatrist but has not followed up recently. Hormonal Fluctuations: - Noted crazy hormone fluctuations around the 2-year laura of current control use. - Account Adjuster plans to change control at the end of November. Lifestyle: - Currently vaping; attempting to reduce usage. 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 Without complaint reggarding headache today. ROS Psychiatric: (+) anxiety with Objective BP 110/72 Pulse 88 Resp 16 Wt 52 kg (114 lb 10.2 oz) LMP 01/03/2024 (Approximate) BMI 20.97 kg/m Physical Exam Vitals and nursing note reviewed. Constitutional: Appearance: Normal appearance. HENT: Head: Normocephalic and atraumatic. Eyes: Conjunctiva/sclera: Conjunctivae normal. Cardiovascular: Rate and Rhythm: Normal rate. Pulmonary: Effort: Pulmonary effort is normal. Musculoskeletal: Right lower leg: No edema. Left lower leg: No edema. Skin: General: Skin is warm and dry. Neurological: General: No focal deficit present. Mental Status: She is alert and oriented to person, place, and time. ALLERGIES Allergen Reactions Bee Sting Hives, Swelling Bees Swelling, Shortness of Breath Elavil [Amitriptyli* Intolerance Medications busPIRone (BUSPAR) 5 mg tablet Take 5 mg by mouth three times a day. etonogestrel (NEXPLANON) subdermal implant 68 mg 68 mg by SUBDERMAL route one time only. Dr. Manuel Garcia SR. DIRECTOR PRODUCT MANAGEMENT rizatriptan 5 mg disintegrating tablet Take 1 tablet (5 mg) by mouth as needed. May repeat in 2 hours if needed. citalopram (CELEXA) 10 mg tablet Take 1 tablet by mouth once daily. cephALEXin (KEFLEX) 250 mg capsule Take 1 capsule by mouth daily at bedtime. MYRBETRIQ 50 mg Tb24 Take 100 mg by mouth once daily. cyclobenzaprine (FLEXERIL) 5 mg tablet Take 5 mg by mouth daily at bedtime. ondansetron orally disintegrating (ZOFRAN ODT) 4 mg disintegrating tablet Take 1 tablet by mouth every 6 hours as needed for nausea/vomiting. PAST MEDICAL HISTORY Diagnosis Date History of headache Interstitial cystitis PTSD (post-traumatic stress disorder) Recurrent UTI (urinary tract infection) Social History Tobacco Use Smoking status: Every Day Current packs/day: 0.50 Average packs/day: 0.5 packs/day for 5.0 years (2.5 ttl pk-yrs) Types: Cigarettes Smokeless tobacco: Never Vaping Use Vaping status: Some Days Substance Use Topics Alcohol use: No Drug use: No Comment: history narcotic abuse years ago 1. PTSD (post-traumatic stress disorder) (F43.10) - Currently managed with citalopram 10 mg daily and buspirone, which has shown improvement in anxiety symptoms. - Discussed potential need for dosage adjustment of citalopram in the future depending on symptom control. - Has not initiated counseling or psychiatric follow-up; encouraged consideration of therapy as an adjunct treatment. 2. Irregular menses (N92.6) - Has been experiencing hormonal fluctuations related to current control method. - Account Adjuster plans to change control at the end of November. - Advised to monitor for any changes in menstrual regularity following the switch. 3. Encounter for immunization (Z23) - Discussed flu vaccine, COVID booster, and pneumonia vaccine; patient declined. 4. Migraine with aura and without status migrainosus, not intractable (G43.109) - Account Adjuster prescribed buspirone, which she reports taking nightly with other medications. - Reports improvement in anxiety and no current issues with migraines. 5. Tobacco use Z72.0 Cessation endorsed. Rod Rosales APRN.CNS Medical Decision Making: Problems: Moderate: 1+ chronic illnesses with change Risk: Moderate: Drug management Medical Decision Making Level: 4 - Moderate documented in this encounterFirelands [facility] Center03-31-2025 NoteHNO ID: [id number] Author: ROD ROSALES APRN.RADIO SURVEY WORKER Service: ? Author Type: Nurse Specialist Type: Progress Notes Filed: 11/02/2024 11:44 Note Text: SUBJECTIVE: Pneumococcal Vaccine(1 of 2 - PCV) Never done Influenza Vaccine(1) due on 04/05/2024 Covid-19 Vaccine( - 2023- season) Never done HPI Riddhi Medley is a 29 year old female. PMH significant for ACTIVE PROBLEM LIST History of Urinary Tract Infection Interstitial Cystitis Abnormal Uterine Bleeding Pelvic and Perineal Pain History of Headache Ptsd (Post-Traumatic Stress Disorder) Presents today for a recheck. HPI excerpted from previous visit: She is concerned about possible hormone imbalance. She is interested in completing some lab work to check this. She reports irregular menstrual cycle. She reports recently having a heavy 2-week long cycle with small clots. She is followed by Dr. Jackson SR. DIRECTOR PRODUCT MANAGEMENT. She reports that she has a Nexplanon in place. She notes she is due for a follow-up visit. She reports history of migraine with aura, previously seen by Dr. Worthy. Last visit 2022. Has had triptans prescribed in the past. Have been effective. She also uses Excedrin Migraine when needed. She notes multiple triggers for migraines. She reports 15 headaches per month perhaps more. Continues to follow with Emma Schilling MD urology asking for interstitial cystitis. Missed her appointment with psychiatry for PTSD. Would like to see seen for this. Anxiety: - Started on citalopram 10 mg and buspirone since last visit. - Reports significant improvement in anxiety symptoms with buspirone. - Prefers to maintain current medication regimen, especially with upcoming control change. - Previously saw a psychiatrist but has not followed up recently. Hormonal Fluctuations: - Noted crazy hormone fluctuations around the 2-year laura of current control use. - Account Adjuster plans to change control at the end of November. Lifestyle: - Currently vaping; attempting to reduce usage. 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 Without complaint reggarding headache today. ROS Psychiatric: (+) anxiety with Objective BP 110/72 Pulse 88 Resp 16 Wt 52 kg (114 lb 10.2 oz) LMP 01/03/2024 (Approximate) BMI 20.97 kg/m? Physical Exam Vitals and nursing note reviewed. Constitutional: Appearance: Normal appearance. HENT: Head: Normocephalic and atraumatic. Eyes: Conjunctiva/sclera: Conjunctivae normal. Cardiovascular: Rate and Rhythm: Normal rate. Pulmonary: Effort: Pulmonary effort is normal. Musculoskeletal: Right lower leg: No edema. Left lower leg: No edema. Skin: General: Skin is warm and dry. Neurological: General: No focal deficit present. Mental Status: She is alert and oriented to person, place, and time. ALLERGIES Allergen Reactions Bee Sting Hives, Swelling Bees Swelling, Shortness of Breath Elavil [Amitriptyli* Intolerance Medications busPIRone (BUSPAR) 5 mg tablet Take 5 mg by mouth three times a day. etonogestrel (NEXPLANON) subdermal implant 68 mg 68 mg by SUBDERMAL route one time only. Dr. Manuel Garcia SR. DIRECTOR PRODUCT MANAGEMENT rizatriptan 5 mg disintegrating tablet Take 1 tablet (5 mg) by mouth as needed. May repeat in 2 hours if needed. citalopram (CELEXA) 10 mg tablet Take 1 tablet by mouth once daily. cephALEXin (KEFLEX) 250 mg capsule Take 1 capsule by mouth daily at bedtime. MYRBETRIQ 50 mg Tb24 Take 100 mg by mouth once daily. cyclobenzaprine (FLEXERIL) 5 mg tablet Take 5 mg by mouth daily at bedtime. ondansetron orally disintegrating (ZOFRAN ODT) 4 mg disintegrating tablet Take 1 tablet by mouth every 6 hours as needed for nausea/vomiting. PAST MEDICAL HISTORY Diagnosis Date History of headache Interstitial cystitis PTSD (post-traumatic stress disorder) Recurrent UTI (urinary tract infection) Social History Tobacco Use Smoking status: Every Day Current packs/day: 0.50 Average packs/day: 0.5 packs/day for 5.0 years (2.5 ttl pk-yrs) Types: Cigarettes Smokeless tobacco: Never Vaping Use Vaping status: Some Days Substance Use Topics Alcohol use: No Drug use: No Comment: history narcotic abuse years ago 1. PTSD (post-traumatic stress disorder) (F43.10) - Currently managed with citalopram 10 mg daily and buspirone, which has shown improvement in anxiety symptoms. - Discussed potential need for dosage adjustment of citalopram in the future depending on symptom control. - Has not initiated counseling or psychiatric follow-up; encouraged consideration of therapy as an adjunct treatment. 2. Irregular menses (N92.6) - Has been experiencing hormonal fluctuations related to current control method. - Account Adjuster plans to change control at the end of November. - Advised to monitor for any changes in menstrual regularity following the switch. 3. Encounter for immunization (Z23) - Discuss (more content not included)...[facility]03-17-2025 Evaluation note* Diagnosis Onset Date Resolution Status Admit Date Contraceptive management acute October 19, 2024 8:25am Mood disorder acute October 19, 2024 8:25am Contraceptive management acute November 27, 2024 1:20pm IUD check up acute January 11 1:57pm Pelvic pain acute January 11 1:57pm [facility] Work Phone: 1(522) 869-201603-13-2025 Progress note* Result Encounter Note - Rod Rosales APRN.CNS - 10/15/2024 12:56 PM EDT Labs within normal limits. [facility]03-13-[facility]25 Miscellaneous Notes* Result Encounter Note - Rod Rosales APRN.CNS - 10/15/2024 12:56 PM EDT Labs within normal limits. documented in this encounterFirelands [facility] Center01-31-2025 History of Present illness Narrative* Rod Rosales APRN.CNS - 09/04/2024 2:00 PM EST SUBJECTIVE: Pneumococcal Vaccine(1 of 2 - PCV) Never done Influenza Vaccine(1) due on 04/05/2024 Covid-19 Vaccine( season) Never done HPI Riddhi Medley is a 29 year old female. PMH significant for ACTIVE PROBLEM LIST History of Urinary Tract Infection Interstitial Cystitis Abnormal Uterine Bleeding Pelvic and Perineal Pain History of Headache Ptsd (Post-Traumatic Stress Disorder) Presents today for a recheck. She is concerned about possible hormone imbalance. She is interested in completing some lab work to check this. She reports irregular menstrual cycle. She reports recently having a heavy 2-week long cycle with small clots. She is followed by Dr. Jackson SR. DIRECTOR PRODUCT MANAGEMENT. Shereports that she has a Nexplanon in place. She notes she is due for a follow-up visit. She reports history of migraine with aura, previously seen by Dr. Worthy. Last visit 2022. Has hadtriptans prescribed in the past. Have been effective. She also uses Excedrin Migraine when needed. She notes multiple triggers for migraines. She reports 15 headaches per month perhaps more. Continues to follow with Emma Schilling MD urology asking for interstitial cystitis. Missed her appointment with psychiatry for PTSD. Would like to see seen for this. Review of Systems Genitourinary: Positive for menstrual problem. Neurological: Positive for headaches. Objective BP (P) 112/76 Pulse (P) 98 Resp (P) 16 Wt (P) 49 kg (108 lb 0.4 oz) LMP 01/03/2024 (Approximate) BMI (P) 19.76 kg/m Physical Exam Vitals and nursing note reviewed. Constitutional: Appearance: Normal appearance. HENT: Head: Normocephalic and atraumatic. Eyes: Conjunctiva/sclera: Conjunctivae normal. Cardiovascular: Rate and Rhythm: Normal rate. Pulmonary: Effort: Pulmonary effort is normal. Musculoskeletal: Right lower leg: No edema. Left lower leg: No edema. Skin: General: Skin is warm and dry. Neurological: General: No focal deficit present. Mental Status: She is alert and oriented to person, place, and time. ALLERGIES Allergen Reactions Bee Sting Hives, Swelling Bees Swelling, Shortness of Breath Elavil [Amitriptyli* Intolerance Medications etonogestrel (NEXPLANON) subdermal implant 68 mg 68 mg by SUBDERMAL route one time only. Dr. Manuel Garcia SR. [employer]NA[employer] cephALEXin (KEFLEX) 250 mg capsule Take 1 capsule by mouth daily at bedtime. MYRBETRIQ 50 mg Tb24 Take 100 mg by mouth once daily. cyclobenzaprine (FLEXERIL) 5 mg tablet Take 5 mg by mouth daily at bedtime. ondansetron orally disintegrating (ZOFRAN ODT) 4 mg disintegrating tablet Take 1 tablet by mouth every 6 hours as needed for nausea/vomiting. rizatriptan 5 mg disintegrating tablet Take 1 tablet (5 mg) by mouth as needed. May repeat in 2 hours if needed. citalopram (CELEXA) 10 mg tablet Take 1 tablet by mouth once daily. PAST MEDICAL HISTORY Diagnosis Date History of headache Interstitial cystitis PTSD (post-traumatic stress disorder) Recurrent UTI (urinary tract infection) Social History Tobacco Use Smoking status: Every Day Current packs/day: 0.50 Average packs/day: 0.5 packs/day for 5.0 years (2.5 ttl pk-yrs) Types: Cigarettes Smokeless tobacco: Never Vaping Use Vaping status: Some Days Substance Use Topics Alcohol use: No Drug use: No Comment: history narcotic abuse years ago ASSESSMENT/PLAN: 1. Irregular menses - ICD9: 626.4, ICD10: N92.6 (primary diagnosis) Presents today regarding concern for possible hormone imbalance. She noted prolonged menses of 2 weeks with small clots. Interested in completing lab work for hormone imbalance. Completed August, results in 2 days within normal. She follows with Dr. Pepe Mclaughlin SR. [employer], due for follow-up.She has a Nexplanon in place. Endorse making an appointment with SR. 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 2. Migraine with aura and without status migrainosus, not intractable - ICD9: 346.00, ICD10: G43.109 3. Chronic daily headache - ICD9: 784.0, ICD10: R51.9 Endorse continue with treatments as prescribed by neurology and schedule follow- up visit with Dr. Worthy. 4. PTSD (post-traumatic stress disorder) - ICD9: 309.81, ICD10: F43.10 Endorse continue with current treatment unchanged and make an appointment with psychiatry. - CONSULT TO PSYCHIATRY - CITALOPRAM 10 MG TABLET Rod Rosales APRN.RADIO SURVEY WORKER Medical Decision Making: Problems: Moderate: 2+ stable chronic illnesses Data: Unique test(s) ordered: 3+ Risk: Moderate: Drug management Medical Decision Making Level: 4 - Moderate documented in this encounterFirelands Regional Medical Center01-31-2025 NoteHNO ID: [id number] Author: ROD ROSALES APRN.MILO Service: ? Author Type: Nurse Specialist Type: Progress Notes Filed: 09/05/2024 11:46 Note Text: SUBJECTIVE: Pneumococcal Vaccine(1 of 2 - PCV) Never done Influenza Vaccine(1) due on 04/05/2024 Covid-19 Vaccine( - season) Never done HPI Riddhi Medley is a 29 year old female. PMH significant for ACTIVE PROBLEM LIST History of Urinary Tract Infection Interstitial Cystitis Abnormal Uterine Bleeding Pelvic and Perineal Pain History of Headache Ptsd (Post-Traumatic Stress Disorder) Presents today for a recheck. She is concerned about possible hormone imbalance. She is interested in completing some lab work to check this. She reports irregular menstrual cycle. She reports recently having a heavy 2-week long cycle with small clots. She is followed by Dr. Jackson SR. [employer]. She reports that she has a Nexplanon in place. She notes she is due for a follow-up visit. She reports history of migraine with aura, previously seen by Dr. Worthy. Last visit 2022. Has had triptans prescribed in the past. Have been effective. She also uses Excedrin Migraine when needed. She notes multiple triggers for migraines. She reports 15 headaches per month perhaps more. Continues to follow with Emma Schilling MD urology asking for interstitial cystitis. Missed her appointment with psychiatry for PTSD. Would like to see seen for this. Review of Systems Genitourinary: Positive for menstrual problem. Neurological: Positive for headaches. Objective BP (P) 112/76 Pulse (P) 98 Resp (P) 16 Wt (P) 49 kg (108 lb 0.4 oz) LMP 01/03/2024 (Approximate) BMI (P) 19.76 kg/m? Physical Exam Vitals and nursing note reviewed. Constitutional: Appearance: Normal appearance. HENT: Head: Normocephalic and atraumatic. Eyes: Conjunctiva/sclera: Conjunctivae normal. Cardiovascular: Rate and Rhythm: Normal rate. Pulmonary: Effort: Pulmonary effort is normal. Musculoskeletal: Right lower leg: No edema. Left lower leg: No edema. Skin: General: Skin is warm and dry. Neurological: General: No focal deficit present. Mental Status: She is alert and oriented to person, place, and time. ALLERGIES Allergen Reactions Bee Sting Hives, Swelling Bees Swelling, Shortness of Breath Elavil [Amitriptyli* Intolerance Medications etonogestrel (NEXPLANON) subdermal implant 68 mg 68 mg by SUBDERMAL route one time only. Dr. Manuel Garcia SR. [employer]NA[employer] cephALEXin (KEFLEX) 250 mg capsule Take 1 capsule by mouth daily at bedtime. MYRBETRIQ 50 mg Tb24 Take 100 mg by mouth once daily. cyclobenzaprine (FLEXERIL) 5 mg tablet Take 5 mg by mouth daily at bedtime. ondansetron orally disintegrating (ZOFRAN ODT) 4 mg disintegrating tablet Take 1 tablet by mouth every 6 hours as needed for nausea/vomiting. rizatriptan 5 mg disintegrating tablet Take 1 tablet (5 mg) by mouth as needed. May repeat in 2 hours if needed. citalopram (CELEXA) 10 mg tablet Take 1 tablet by mouth once daily. PAST MEDICAL HISTORY Diagnosis Date History of headache Interstitial cystitis PTSD (post-traumatic stress disorder) Recurrent UTI (urinary tract infection) Social History Tobacco Use Smoking status: Every Day Current packs/day: 0.50 Average packs/day: 0.5 packs/day for 5.0 years (2.5 ttl pk-yrs) Types: Cigarettes Smokeless tobacco: Never Vaping Use Vaping status: Some Days Substance Use Topics Alcohol use: No Drug use: No Comment: history narcotic abuse years ago ASSESSMENT/PLAN: 1. Irregular menses - ICD9: 626.4, ICD10: N92.6 (primary diagnosis) Presents today regarding concern for possible hormone imbalance. She noted prolonged menses of 2 weeks with small clots. Interested in completing lab work for hormone imbalance. Completed September 04, 2024, results in 2 days within normal. She follows with Dr. Pepe Mclaughlin SR. [employer], due for follow-up. She has a Nexplanon in place. Endorse making an appointment with SR. 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 2. Migraine with aura and without status migrainosus, not intractable - ICD9: 346.00, ICD10: G43.109 3. Chronic daily headache - ICD9: 784.0, ICD10: R51.9 Endorse continue with treatments as prescribed by neurology and schedule follow-up visit with Dr. Worthy. 4. PTSD (post-traumatic stress disorder) - ICD9: 309.81, ICD10: F43.10 Endorse continue with current treatment unchanged and make an appointment with psychiatry. - CONSULT TO PSYCHIATRY - CITALOPRAM 10 MG TABLET Rod Rosales APRN.RADIO SURVEY WORKER Medical Decision Making: Problems: Moderate: 2+ stable chronic illnesses Data: Unique test(s) ordered: 3+ Risk: Moderate: Drug management Medical Decision Making Level: 4 - [facility]erateReg[facility] NoteHNO ID: [id number] Author: CATHERINE MARIA APRN.CNP Service: ? Author Type: Nurse Practitioner Type: Progress Notes Filed: 01/14/2024 17:06 Note Text: Patient did not come in for her initial visit scheduled with the provider today. [facility]06-11[facility] History of Present illness Narrative* Catherine Maria APRN.CNP - 01/14/2024 5:05 PM EDT Patient did not come in for her initial visit scheduled with the provider today. documented in this encounterFirelands Regional Medical Center06-03-2024 NoteHNO ID: [id number] Author: EKLIN OLIVA MD Service: ? Author Type: Physician Type: Progress Notes Filed: 02/06/2024 22:29 Note Text: This note was created using [employer]. Subjective Riddhi Medley is a 28 year old female. Patient presents with: F/U 6 months SUBJECTIVE: Riddhi Medley is a 28 year old year old lady here today for 6 month follow up appointment for review of medical conditions. No acute issues to address. Following with with Dr. Worthy for migraines. not sure when was to have follow up appointment. Did okay for a few months after stopping Zonegran, but daily migraines past 2 months now. Does have some rizatriptan but insurance only covered 9, not 12 pills per RX. PHQ-9 11/06/2022 11/08/2022 01/22/2023 01/05/2024 PHQ-9 Scores Little interest or pleasure in doing things Nearly every day Nearly every day More than half the days Several days Feeling down, depressed, or hopeless More than half the days More than half the days Several days Several days Trouble falling or staying asleep, or sleeping too much More than half the days - Nearly every day More than half the days Feeling tired or having little energy Nearly every day - Nearly every day More than half the days Poor appetite or overeating Nearly every day - Nearly every day More than half the days Feeling bad about yourself - or that you are a failure or have let yourself or your family down Nearly every day - Nearly every day Nearly every day Trouble concentrating on things, such as reading the newspaper or watching television Several days - Several days More than half the days Moving or speaking so slowly that other people could have noticed. Or the opposite - being so fidgety or restless that you have been moving around a lot more than usual Several days - Several days Several days Thoughts that you would be better off , or of hurting yourself in some way Several days - Not at all Not at all PHQ-9 Score 19 - 17 14 Behavioral Health Screening PHQ-9 Score: 14 (Moderate Depression) Recommendation: no further intervention at this time Noted off SSRIs. Some improvement in PHQ9 score since last check. PAST MEDICAL HISTORY Diagnosis Date History of headache Interstitial cystitis PTSD (post-traumatic stress disorder) Recurrent UTI (urinary tract infection) Current Outpatient Medications Medication Sig MYRBETRIQ 50 mg Tb24 Take 100 mg by mouth once daily. cyclobenzaprine (FLEXERIL) 5 mg tablet Take 5 mg by mouth daily at bedtime. rizatriptan 5 mg disintegrating tablet Take 1 tablet (5 mg) by mouth as needed. May repeat in 2 hours if needed. ondansetron orally disintegrating (ZOFRAN ODT) 4 mg disintegrating tablet Take 1 tablet by mouth every 6 hours as needed for nausea/vomiting. cephALEXin (KEFLEX) 250 mg capsule Take 1 capsule by mouth daily at bedtime. No current facility-administered medications for this visit. Review of Systems Objective BP 96/62 Pulse 109 Temp 37.1 ?C (98.7 ?F) Resp 18 Wt 48.4 kg (106 lb 11.2 oz) LMP 01/03/2024 (Approximate) SpO2 99% BMI 19.52 kg/m? Physical Exam Constitutional: Appearance: Normal appearance. HENT: Head: Normocephalic. Eyes: Conjunctiva/sclera: Conjunctivae normal. Cardiovascular: Rate and Rhythm: Normal rate and regular rhythm. Heart sounds: Normal heart sounds. Pulmonary: Effort: Pulmonary effort is normal. Breath sounds: Normal breath sounds. Musculoskeletal: Right lower leg: No edema. Left [...] and without status migrainosus, not intractable G43.109 With follow up with Dr. Worthy. Noted daily headaches. Some days worse than others 2. Muscle spasm M62.838 cyclobenzaprine (FLEXERIL) 10 mg tablet RX from Dr. Schilling now. 3. Depression--PHQ9 score a little better compared to before. Continue working on managing migraines and urology issues. Further evaluation and treatment as needed Above issues addressed with patient. Patient involved [...] and regular exercise and adequate sleep. Elkin Oliva [facility]06-03-2024 History of Present illness Narrative* Elkin Oliva MD - 01/06/2024 5:29 PM EDT This note was created using NoteWriter. Subjective Riddhi Medley is a 28 year old female. Patient presents with: F/U 6 months SUBJECTIVE: Riddhi Medley is a 28 year old year old lady here today for 6 month follow up appointment for review of medical conditions. No acute issues to address. Following with with Dr. Worthy for migraines. not sure when was to have follow up appointment. Didokay for a few months after stopping Zonegran, but daily migraines past 2 months now. Does have some rizatriptan but insurance only covered 9, not 12 pills per RX. PHQ-9 11/06/2022 11/08/2022 01/22/2023 01/05/2024 PHQ-9 Scores Little interest or pleasure in doing things Nearly every day Nearly every day More than half the days Several days Feeling down, depressed, or hopeless More than half the days More than half the days Several days Several days Trouble falling or staying asleep, or sleeping too much More than half the days - Nearly every day More than half the days Feeling tired or having little energy Nearly every day - Nearly every day More than half the days Poor appetite or overeating Nearly every day - Nearly every day More than half the days Feeling bad about yourself - or that you are a failure or have let yourself or your family down Nearly every day - Nearly every day Nearly every day Trouble concentrating on things, such as reading the newspaper or watching television Several days - Several days More than half the days Moving or speaking so slowly that other people could have noticed. Or the opposite - being so fidgety or restless that you have been moving around a lot more than usual Several days - Several days Several days Thoughts that you would be better off , or of hurting yourself in some way Several days - Not at all Not at all PHQ-9 Score 19 - 17 14 Behavioral Health Screening PHQ-9 Score: 14 (Moderate Depression) Recommendation: no further intervention at this time Noted off SSRIs. Some improvement in PHQ9 score since last check. PAST MEDICAL HISTORY Diagnosis Date History of headache Interstitial cystitis PTSD (post-traumatic stress disorder) Recurrent UTI (urinary tract infection) Current Outpatient Medications Medication Sig MYRBETRIQ 50 mg Tb24 Take 100 mg by mouth once daily. cyclobenzaprine (FLEXERIL) 5 mg tablet Take 5 mg by mouth daily at bedtime. rizatriptan 5 mg disintegrating tablet Take 1 tablet (5 mg) by mouth as needed. May repeat in 2 hours if needed. ondansetron orally disintegrating (ZOFRAN ODT) 4 mg disintegrating tablet Take 1 tablet by mouth every 6 hours as needed for nausea/vomiting. cephALEXin (KEFLEX) 250 mg capsule Take 1 capsule by mouth daily at bedtime. No current facility-administered medications for this visit. Review of Systems Objective BP 96/62 Pulse 109 Temp 37.1 C (98.7 F) Resp 18 Wt 48.4 kg (106 lb 11.2 oz) LMP 01/03/2024 (Approximate) SpO2 99% BMI 19.52 kg/m Physical Exam Constitutional: Appearance: Normal appearance. HENT: Head: Normocephalic. Eyes: Conjunctiva/sclera: Conjunctivae normal. Cardiovascular: Rate and Rhythm: Normal rate and regular rhythm. Heart sounds: Normal heart sounds. Pulmonary: Effort: Pulmonary effort is normal. Breath sounds: Normal breath sounds. Musculoskeletal: Right lower leg: No edema. Left [...] and without status migrainosus, not intractable G43.109 With follow up with Dr. Worthy. Noted daily headaches. Some days worse than others 2. Muscle spasm M62.838 cyclobenzaprine (FLEXERIL) 10 mg tablet RX from Dr. Schilling now. 3. Depression--PHQ9 score a little better compared to before. Continue working on managing migraines and urology issues. Further evaluation and treatment as needed Above issues addressed with patient. Patient involved [...] and regular exercise and adequate sleep. Elkin Oliva MD documented in this encounterFirelands Regional Medical Center04-12-2024 Miscellaneous Notes* Telephone Encounter - Rod Rosales APRN.RADIO SURVEY WORKER - 11/15/2023 4:46 PM EDT Okay, please schedule. Assuming this is for PTSD. * Telephone Encounter - Loretta Pham LPN - 11/15/2023 10:36 AM EDT Patient calling requesting a referral to Psychiatry in the building please. Pending not sure which on is needed. Please advise documented in this encounterFirelands Regional Medical Center02-22-2024 Discharge summary Author Emma Schilling [facility] September 26, 2023 8:50am Note Date/Time September 26, 2023 7:29am [facility] Medical Records Department [address] [place] [id number] Instructions for Home/Discharge Instructions 09/26/23 0729 MR#: [id number] Acct: [id number] Name: RIDDHI MEDLEY SENG Rep #:[id number] : 1995 28 From: Emma Langford PCP: Dr. Elkin Oliva MD Status: [place] [facility] Discharge Instructions Diet Discharge Diet: No restrictions Activity Discharge Activity: Return to Normal Activity Dressing / Incision Call your doctor if you observe: Fever of 101 or Higher, Inability to urinate and Inability to have a bowel movement Follow Up Care Please Follow Up With: Emma Schilling MD When: the office will call her to make follow up arrangements for next week Test Results: Test results from this visit will be discussed in further detail at your follow- up appointment, if applicable. Discharge Plan Admission Attending Provider: Emma Schilling Primary Care Provider: Elkin Oliva Discharge Orders/Prescriptions Prescriptions: New oxycodone-acetaminophen [Percocet] 5-325 mg tablet 1 tab PO Q8H PRN (Reason: pain) 3 Days Qty: 9 0RF sulfamethoxazole-trimethoprim [sulfamethoxazole-trimethoprim] 800-160 mg tablet 1 tab PO BID 3 Days Qty: 6 0RF Continued Excedrin Migraine 250-250-65 mg Tablet 1 tab PO Q6H PRN (Reason: Migraine Headache) Myrbetriq 25 mg tablet extended release 24 hr 50 mg PO QHS cephalexin 250 mg capsule 250 mg PO QHS cyclobenzaprine 5 mg tablet 5 mg PO TID PRN oxycodone-acetaminophen 5-325 mg tablet 1 tab PO Q6H PRN (Reason: pain) d-mannose 500 mg capsule 1,000 mg PO DAILY Probiotic Acidophilus 250 million cell capsule 500 mmu cells PO DAILY Nexplanon 68 mg implant 1 implant subdermal DAILY Referrals / Follow Up: Elkin Oliva MD [Primary Care Provider] - Disposition Disposition (needs filled in before D/C Order can be placed): Home, Self Care 09/26/23 0850<Electronically signed by Emma Schilling MD>Emma Schilling MD CC: Dr. Elkin Oliva MD ~ Signed [facility] Work Phone: 1(866) 417-866602-22-2024 Procedure [facility] 07-10-2023 Miscellaneous Notes* Telephone Encounter - Nikky Sosa - 07/10/2023 2:56 PM EST Physician: Dr. Worthy Call from pharmacy requesting refill. Please E-Scribe Last OV: 03/07/[address] Worthy Future OV: no future appointments scheduled with Dr. Worthy Requested Prescriptions Pending Prescriptions Disp Refills rizatriptan 5 mg disintegrating tablet 12 tablet 2 Sig: Take 1 tablet (5 mg) by mouth as needed. May repeat in 2 hours if needed. Pharmacy Name: [facility] Phone #: [phone] 03/07/2023 March 07, 2023 28 years old [...] as shown below Subjective HISTORY AND PHYSICAL Carolina Galindo 27 year old woman ,complaining of [...] lb 9.6 oz) Height: 157.5 cm (5' 2) Physical Exam EXAM: NOSE: no erythema or [...] for PTSD 30 tablet 11 rizatriptan (MAXALT UX ARCHITECT) 5 mg disintegrating tablet Take 1 tablet by mouth as needed. May repeat in2 hours if needed. 12 tablet 2 cyclobenzaprine [...] Gatherings with Friends and Family: Never Attends Scientologist Services: Never Active Member of Clubs or Organizations: No Attends Club or Organization Meetings: Never Marital Status: Living with partner No diagnosis found. Assessment and Plan Patient is 28 years old with chronic migraine headache,intractable as detailed above Discussed headache management Acute and preventive No orders found for this visit on 03/07/23. documented in this encounterFirelands Regional Medical Center11-10-2023 NotePap Smear Specimen AdequacyJune 14, 2023 12:36pmComment.Satisfactory for evaluation. Endocervical and/or squamous metaplasticcells (endocervical component)are present.[facility] INTERFACED A#[id number] HospitalComment on above: Satisfactory for evaluation. Endocervical and/or squamous metaplasticcells (endocervical component)are present.06-14-2023 NotePap Smear Specimen Adequacy June 14, 2023 12:36pmComment.Satisfactory for evaluation. Endocervical and/or squamous metaplasticcells (endocervical component)are present.[facility] INTERFACED A#[id number] Hospital on above:Satisfactory for evaluation. Endocervical and/or squamous metaplasticcells (endocervical component)are present.06-14-2023 NotePap Smear Specimen AdequacyNovember 2022 12:36pmComment.Satisfactory for evaluation. Endocervical and/or squamous metaplasticcells (endocervical component)are present.[facility] INTERFACED A#[id number] HospitalComhills & [facility] on above:Satisfactory for evaluation. Endocervical and/or squamous metaplasticcells (endocervical component)are present.06-14-2023 NotePap Smear Specimen AdequacyNov2022 12:36pmComment.Satisfactory for evaluation. Endocervical and/or squamous metaplasticcells (endocervical component)are present.[facility] INTERFACED A#[id number] HospitalComhills & dales general hospital on above:Satisfactory for evaluation. Endocervical and/or squamous metaplasticcells (endocervical component)are present.03-27-2023 Miscellaneous Notes* Telephone Encounter - Pat Edmond RN - 03/27/2023 4:27 PM EDT Call to patient. She would like prior authorization submitted to try to get the full 12 tablets permonth. Prior authorization submitted via cover meds. ([place]: [id number]) * Telephone Encounter - Erlin Valente RN - 03/26/2023 2:56 PM EDT Images from the original note were not included. Radames Worthy MD You 13 minutes ago (2:43 PM) She can wait until old prescription runs out and depending on what the insurance will allow Attempted to reach patient to ask if she is requesting early refill of Maxalt 5 mg. Disintegrating tablets and to get an update on symptoms. Left message to call back. * Telephone Encounter - Erlin Valente RN - 03/26/2023 10:42 AM EDT Yancy Pharmacist left message on nurse line [...] her, her ID number with Medicaid is [id number]. She needs a PA to get more than nine tablets in 30 days -- documented in this encounterFirelands Regional Medical Center08-22-2023 Hospital Discharge instructions Patient Education 03/26/2023 13:49:33 [facility] Discharge Instructions Template (05/2018) (CUSTOM) DALIA SAME DAY SURGERY DISCHARGE INSTRUCTIONS PLEASE FOLLOW [...] us better serve our patients. Form: 1522 ([id number]) R: 11/1103/26/2023 13:48:11 [facility] URO Cystoscopy w/ Bladder Biopsy (05/2022)(CUSTOM) CYSTOSCOPY WITH BLADDER BIOPSY CYSTOSCOPY WITH BLADDER BIOPSY: The bladder is filled with water to examine and a sample of tissue will be taken to be evaluated. The area will be cauterized. This procedure may be done as a diagnostic procedure. SURGICAL TREATMENT: Surgery: Outpatient- surgery length of time approximately 30 minutes, no skin incisions (surgery isdone within the bladder with a scope). Surgical [...] Up Care 01/16/2023 14:56:35 With:JJ VELÁZQUEZ MD, [facility] Address: [address] [place] [phone] When: Unknown Comments:Follow-up as scheduled [facility] 08-22-2023 Summary of episode note Discharge Instructions Thank you for allowing [facility] to assist you with your healthcare needs. The following is importantdischarge information regarding your hospital visit. Your Care Team ELKIN OLIVA MD Your Diagnosis Bladder pain What to do next Scheduled Follow-Up Appointments Appointment Type When With Where Contact InformationURO OV Post Op 04/10/2023 11:10 AM EDT JJ VELÁZQUEZ MD [facility] Follow Up Appointments Follow Up with JJ VELÁZQUEZ MD, [facility] [place] Why: Follow-up as scheduled Where: [address] [place] [phone] The Following Activity and Diet Have Been Ordered for You Discharge Activity - Ordered -- Follow the post-operative/post-procedure activity instructions provided by your physician's office., 03/26/23 13:46:00 EDT Discharge Diet - Ordered -- Follow the post-operative/post-procedure diet instructions provided by your physician's office.,03/26/23 13:46:00 EDT The Following Equipment Has Been [...] and or supplements as they may interact withyour home medications. What How Much When Why Instructions Last Dose New acetaminophen-oxyCODONE (Percocet 5 mg-325 mg oral tablet) 1 tab(s) by mouth Every 4 hours as needed for for pain Bladder pain Duration: 3 Days Pickup at [facility] 181 Unchanged oxybutynin (oxybutynin 5 mg/ 24 [...] cap by mouth Every day Pharmacy Information [facility] 181: [address] [place], [place] [phone] Please take this list to your next doctor s visit. Bring all medications you take, including over the counter medications, herbals and other supplements with you to your doctor s visit. Patients and families are reminded to discard old lists and to update any records with all medication providers or retail pharmacies. Education Materials [facility] SAME DAY SURGERY DISCHARGE INSTRUCTIONS PLEASE FOLLOW [...] help us better serve our patients. Form: 1520 (32254) R: 11/11 CYSTOSCOPY WITH BLADDER BIOPSY CYSTOSCOPY WITH BLADDER BIOPSY: The bladder is filled with water to examine and a sample of tissue will be taken to be evaluated. The area will be cauterized. This procedure may be done as a diagnostic procedure. SURGICAL TREATMENT: Surgery: Outpatient- surgery length of time approximately 30 minutes, no skin incisions (surgery isdone within the bladder with a scope). Surgical [...] to receive it can visit one of [facility] vaccine clinics. There are many vaccine clinic locations within the [facility]. For locations and available times, please visit https://gettheshot.coronavirus.[place].gov/. It is important to note that some COVID mobile vaccine clinics are held outdoors and may be canceled in rainy or stormy conditions. To learn more about pediatric vaccinations (ages 5-11), we invite you to visit the [facility] webpage. https://www.[facility].org/pages/0996-Mgbib-Wrxmgoakofb-Emrfarvzpc-Tbqla-Cxk stions.htmlTo learn more about the COVID-19 vaccine, we invite you to visit the CDC website for a list of frequently asked questions.https://www.cdc.gov/coronavirus/2019-ncov/vaccines/faq.html [facility] [employer] Patient Portal Access Instructions: Stay connected with your healthcare team and access your personal medical information anytime with the [employer] Patient Portal. Please follow the directions below to create your [facility] account: 1.Access the email account you provided upon registration to the hospital/physician office.2.Look for an invitation email from [facility].3.Open the email and access the invitation link: AcceptInvitation to [facility].4.Fill in the required bryant to create your account. To access your account, visit [employer]/Edgar. Click the blue button labeled Access Patient Portal and then log in with the username and password that you created in the steps above. You will be able to view your test results, lab results, a summary of your visits, upcoming appointments and more. There is also a convenient messaging option where you can send secure messages to your p TableNOWvider. In addition, you will have the ability to download any documents or summaries to your computer and/or send the information securely to a physician. Remember that your healthcare information is confidential, so carefully consider who you will allowto register on the [facility] [employer] Patient Portal for access to your information. You can also access the [facility] Patient Portal on the [facility] georgi. Simply click on Patient Portal and then log into your account. If you would like to receive a full copy of your medical records, please contact the [facility] Medical Records Department by calling [phone], Saturday through Saturday between 8 a.m. and 4:30 p.m. HOW TO SAFELY DISPOSE OF PRESCRIPTION MEDICATIONS Please use one of the following methods to safely dispose of your unused medications. 1.Use a drug disposal kit: the drug disposal pouch allows you to safely discard your old and unuseddrugs. Ask your nurse to give you one when you are discharged.2.Visit a local take-back location: Many local pharmacies and police departments have programs that collect old and unwanted prescriptiondrugs. Call your local pharmacy or go to http://[employer]/8X1Ch7j to find one close to you.3.Make use of household items: Use cat litter or old coffee grounds to dispose medications if other options arenot available. Mix your drugs with these household products, seal them in an airtight container andthrow it into the garbage. Call [facility]: [phone] to be sure your drugs can be [...] been reviewed and explained to me and I,RIDDHI MEDLEY understand my current condition and have read and understand these discharge instructions. I have received a written copy of the plan/instructions. If I have questions, I am aware that I should contact my doctor. Patient/Elevator Conductor Signature: Date/Time: Relationship to Patient: Witness Name/Signature: Date/Time: [id number] Anesthesiology Consult note Patient: RIDDHI MEDLEY Age: 28 years Sex: Female : 1995 [...] CATALINA GUPTA MD on 03/26/2023 01:08 PM [id number] Anesthesiology Progress note Patient: RIDDHI MEDLEY Age: 28 years Sex: Female : 1995 [...] Once, PRN: as needed for migraine headache, 6tab(s), 0 Refill(s) sertraline 25 mg oral tablet: [...] cystitis (chronic) with hematuria / SNOMED CT 545589682 / Confirmed Chronic bladder pain / SNOMED CT 4648930449 / Confirmed OAB (overactive bladder) / SNOMED CT 4713488965 / Confirmed Squamous cell metaplasia of urinary bladder / SNOMED CT 138181957 / Confirmed UTI symptoms / SNOMED CT 698695577 / Confirmed, Active Problems (15) Acid reflux [...] Mother Father Sister Brother Procedure history: Cystoscopy (73632401) in the month of 04/2022 at 27 Years. delivery (2036096912) in 2019 at 25 Years. Social History [...] Resp Rate 18 br/min (MAR 26 09:38) IQQ132 mmHg (MAR 26 09:38) DBP77 mmHg (MAR 26 09:38) Measurements from flowsheet : Measurements 03/26/2023 9:38 EDT Height 157.5 cm Height in inches 62 inch(es) Admission Weight 47.6 kg Weight Lbs 104.7 lb Weight Method Actual [place] Body Weight 50.12 kg Admission Body Mass Index 19.19 m2 General: Alert and oriented, No acute distress. Dentition Evaluation: Intact, Own teeth. Respiratory: Symmetrical chest wall expansion. Cardiovascular: Normal peripheral perfusion. Neurologic: Alert, Oriented. Review / Management Results review: No qualifying data available . Assessment and Plan [place] Society of Anesthesiologists (ASA) physical status classification: Class II. Anesthetic Preoperative Plan Anesthetic technique: General. Maintenance airway: Laryngeal mask airway. Postoperative pain management: Per surgeon. Informed consent: signed by patient. Digitally Signed by SANTANA GIORDANO MD on 03/26/2023 10:21 AM [id number] History of Present illness Narrative* Elkin Oliva MD - 03/25/2023 2:56 PM EDT This note was created using MARIPOSA BIOTECHNOLOGYriter. Subjective Riddhi Medley is a 28 year old female. Patient presents with: Follow Up SUBJECTIVE: Riddhi Medley is a 28 year old year old [...] capsule by mouth once daily. rizatriptan (MAXALT UX ARCHITECT) 5 mg disintegrating tablet Take 1 tablet by mouth as needed. May repeat in2 hours if needed. cyclobenzaprine (FLEXERIL) 10 mg [...] twice daily with meals. Take with food. Asneeded for headache (Patient not taking: Reported on [...] and regular exercise and adequate sleep. Elkin Oliva MD documented in this encounterFirelands Regional Medical Center08-21-2023 Miscellaneous Notes* Telephone Encounter - Deborah Holder OCCA - 03/25/2023 12:57 PM EDT Patient has been identified by name and [...] Thank you. MYRTLE Jarrett documented in this encounterFirelands Regional Medical Center08-21-2023 Miscellaneous Notes* Telephone Encounter - Nikky Sosa - 03/25/2023 11:27 AM EDT Physician: Dr. Worthy Call from pharmacy requesting refill. Please E-Scribe Last OV: 03/07/[address] Worthy Future OV: no future appointments scheduled with Dr. Worthy Requested Prescriptions Pending Prescriptions Disp Refills rizatriptan (MAXALT UX ARCHITECT) 5 mg disintegrating tablet 12 tablet 2 Sig: Take 1 tablet by mouth as needed. May repeat in 2 hours if needed. Pharmacy Name: [facility] Phone #: [phone] 03/07/2023 Assessment and Plan Patient is 28 years old with migraine headache as detailed above Discussed headache management Acute and preventive No orders found for this visit on 03/07/23. documented in this encounterFirelands Regional Medical Center08-11-2023 Note. MICRO - Microbiology PROCEDURE: Urine Culture [*1] [...] Locations *1: This test was performed at: [address], [facility] , [facility] ([place])03-08-2023 Note. MICRO - Microbiology PROCEDURE: Urine Culture [*1] [...] Locations *1: This test was performed at: [address], [facility] , [facility] ([place])03-07-2023 History of Present illness Narrative* Radames Worthy MD - 03/07/2023 4:34 PM EDT Follow up visit March 07, 2023 28 [...] as shown below Subjective HISTORY AND PHYSICAL Carolina Galindo 27 year old woman ,complaining of [...] lb 9.6 oz) Height: 157.5 cm (5' 2) Physical Exam EXAM: NOSE: no erythema or [...] for PTSD 30 tablet 11 rizatriptan (MAXALT UX ARCHITECT) 5 mg disintegrating tablet Take 1 tablet by mouth as needed. May repeat in2 hours if needed. 12 tablet 2 cyclobenzaprine [...] Gatherings with Friends and Family: Never Attends Scientologist Services: Never Active Member of Clubs or [...] 50% of the time spent in patient education/counselling/coordinating care with the patient and /or family. Radames Worthy M.D. [facility] Neurological [place] Department of Neurology documented in this encounterFirelands Regional Medical Center07-27-2023 Miscellaneous Notes* Telephone Encounter - Gayathri Maxwell LPN - 02/28/2023 4:25 PM EDT Spoke with Dr. Worthy to let her know the patients concern about the Elavil contributing to your headaches, Dr. Worthy said it is appropriate to discontinue the Elavil at this time. [employer] messagewas sent to the patient to make aware. * Telephone Encounter - Leonie Ovalles - 02/28/2023 11:37 AM EDT Patient called in about Refill and wanted to let Dr Worthy know that she is continuing to get headaches daily and she believes it is from the medication. Leonie Ovalles If she gets headache from that specific medication then she doesn't have to take it Will discontinue that medication and will reevaluate her in virtual visit Thanks * Telephone Encounter - Gayathri Maxwell LPN - 02/28/2023 11:22 AM EDT Images from the original note were not included. TCA Refill Checklist Failed 02/28/2023 12:01 AM LFT within the last 12 months Blood pressure within the last 12 months Visit with provider within the last 12 months Prescription pended to requested pharmacy and forwarded to provider for review. HANNAH: 01/29/2023 NOV: 03/07/2023 Last prescribed: 01/29/2023 documented in this encounterFirelands Regional Medical Center07-18-2023 Miscellaneous Notes* Telephone Encounter - Erlin Valente RN - 02/19/2023 10:14 AM EDT Spoke to pharmacist who was advised of provider's message and verbalized understanding. * Telephone Encounter - Radames Worthy MD - 02/19/2023 9:46 AM EDT Yes Patient will be watching if any symptoms of serotonin syndrome Both are in small dose * Telephone Encounter - Michelle Gr - 02/18/2023 9:27 AM EDT Rossana, pharmacist, with [facility] pharmacy in [place], called stating that amitriptyline (ELAVIL) 10 mg tablet interacts with Zoloft, which patient already takes. Pharmacist needs clarification if this is known to Dr. Worthy, and if it is documented that she will be watching for Serotonin Syndrome? Please advise and call [facility] pharmacy at [phone] with recommendations. Michelle Gr documented in this encounterFirelands Regional Medical Center07-10-2023 Miscellaneous Notes* Telephone Encounter - Nova Mcclelland LPN - 02/11/2023 3:31 PM EDT Forms refaxed and patient updated via Touch-Writer. Nova Mcclelland LPN * Telephone Encounter - Alexandra Park LPN - 02/07/2023 11:55 AM EDT Pt calling to check status.on FMLA papers. See phone note form 01-02-23. Pt came in and signed her part and they should of been faxed to [employer]. Pt had the forms re-faxed on 01-24-23 because [facility] not recevied them. Pt spoke with [employer] 1 week ago and they have not received the form. Please advise pt anupam. Alexandra Park LPN * Telephone Encounter - Julia Bullard RN - 01/24/2023 9:18 AM EDT Patient calls to report that she was in and signed the release form for FMLA paperwork to be sent to [employer] but they haven't received it yet. Patient asking for forms to be faxed. The fax number for [employer] is on the forms. Julia Bullard RN documented in this encounterFirelands Regional Medical Center06-27-2023 History of Present illness Narrative* Elkin Oliva MD - 01/29/2023 4:05 PM EDT This note was created using MARIPOSA BIOTECHNOLOGYriter. Subjective Riddhi Medley is a 27 year old female. Patient presents with: ED Follow-up: [facility] ED follow up from 01/26/2023 SUBJECTIVE: Riddhi Medley is a 27 year old year old [...] twice daily with meals. Take with food. Asneeded for headache (Patient not taking: No sig reported) No current facility-administered medications for this visit. D Review of Systems Objective BP 112/62 Pulse 79 Temp 36.6 C (97.8 F) Resp 18 Wt 47.6 kg (105 lb) LMP 09/08/2019 TaP143% BMI 19.20 kg/m Physical Exam Constitutional: Appearance: [...] Further evaluation and treatment as indicated. Elkin Oliva MD documented in this encounterFirelands Regional Medical Center06-27-2023 History of Present illness Narrative* Radames Worthy MD - 01/29/2023 10:01 AM EDT January 29, 2023 Headache Subjective HISTORY AND PHYSICAL Carolina Galindo 27 year old woman ,complaining of [...] kg (102 lb) Height: 157.5 cm (5' 2) Physical Exam EXAM: NOSE: no erythema or [...] twice daily with meals. Take with food. Asneeded for headache (Patient not taking: No sig reported) 60 tablet 1 No current facility-administered medications for this visit. Social Connections: Socially Isolated (11/06/2022) Social Connection and Isolation Panel [NHANES] Frequency of Communication with Friends and Family: Twice a week Frequency of Social Gatherings with Friends and Family: Never Attends Scientologist Services: Never Active Member of Clubs or [...] 50% of the time spent in patient education/counselling/coordinating care with the patient and /or family. January 29, 2023 Radames Worthy M.D. [facility] [place] Department of Neurology documented in this encounterFirelands Regional Medical Center06-26-2023 Miscellaneous Notes* Telephone Encounter - Michelle Proctor LPN - 01/28/2023 4:21 PM EDT No answer. Left providers message and ask to call office and ask to speak to a nurse with any questions or concerns. * Telephone Encounter - Rod Rosales APRN.RADIO SURVEY WORKER - 01/28/2023 4:14 PM EDT Can add Pyridium. Prescription sent to [facility] pharmacy * Telephone Encounter - Alexandra Park LPN - 01/28/2023 1:54 PM EDT Pt went to [facility] ER 01-26-23. Pt was dx with UTI [...] burning, frequency and blood in the urine. [facility] ER FU has been scheduled for tomorrow 01-29-23. Alexandra Park LPN documented in this encounterFirelands Regional Medical Center06-22-2023 Miscellaneous Notes* Telephone Encounter - Alexandra Park LPN - 01/24/2023 11:52 AM EDT Patient has been identified by name and date of : Yes, Provider Dr. Oliva Date 01/24/23 Time11:52 am Patient phones for refill(s): Requested Prescriptions [...] you. Alexandra Park LPN documented in this encounterFirelands Regional Medical Center06-01-2023 Miscellaneous Notes* Telephone Encounter - Michelle Proctor LPN - 01/03/2023 3:32 PM EDT Spoke with patient and VV appointment was scheduled * Telephone Encounter - Elkin Oliva MD - 01/02/2023 9:01 PM EDT Needs VV scheduled to review and complete forms as discussed with patient at her appointment recently. Not sure if needs to be no sooner than 7 days from recent appointment so if not sure, make sure appointment at least 7 days from recent appointment. * Telephone Encounter - Nova Mcclelland LPN - 01/02/2023 6:44 PM EDT Forms received from [employer] concerning patient disability/leave. Provider to review and address. Nova Mcclelland LPN documented in this encounterFirelands Regional Medical Center05-30-2023 History of Present illness Narrative* Elkin Oliva MD - 01/01/2023 11:05 AM EDT This note was created using MARIPOSA BIOTECHNOLOGYriter. Subjective Riddhi Medley is a 27 year old female. Patient presents with: F/U 6 months SUBJECTIVE: Riddhi Medley is a 27 year old year old [...] and got worse lately. Other issue is [facility] paperwork for headaches, and other issues. Urologist [...] trigger could be the overhead lights at [facility]. January 16 is cystoscopy with new urologist. Needs bladder resection so was referred from prior urologist to new one. FMLA forms were done 11/08 by Rod but needs corrected. PAST MEDICAL HISTORY Diagnosis [...] twice daily with meals. Take with food. Asneeded for headache No current facility-administered medications for [...] regular exercise and adequate sleep. 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 Referred to neurologist since having daily migraine type headaches and tension headaches. Discussedhow each type of headache could trigger the [...] the date of the service which included [id number] patient care, completing clinical documentation, performing a medically appropriate examination, counseling and educating the patient/family/caregiver, and ordering medications, tests, or procedures. Elkin Oliva MD documented in this encounterFirelands Regional Medical Center05-17-2023 History of Present illness Narrative* Mirtha Savage APRN.CNP - 12/19/2022 11:36 AM EDT Pt. Cancelled appointment while performing intake review. Sent [employer] message as difficulty connecting with patient. documented in this encounterFirelands Regional Medical Center05-17-2023 History of Present illness Narrative* Ina Julien APRN.CNP - 12/19/2022 11:35 AM EDT Patient connected and then immediately lost connection' Appointment cancelled. Fee Waived Ina Julien APRN.CNP documented in this encounterFirelands Regional Medical Center04-06-2023 Instructions* Patient Instructions* Rod Rosales APRN.CNS - 11/08/2022 9:40 AM EDT Take naproxen 2 times daily with meals for the next 2 to 3 days. Then take as needed at the first sign of headache or aura Try sertraline once daily for PTSD. documented in this encounterFirelands Regional Medical Center04-06-2023 History of Present illness Narrative* Rod Rosales APRN.CNS - 11/08/2022 9:00 AM EDT SUBJECTIVE: COVID-19 VACCINE(1) Never done PNEUMOCOCCAL(1 - PCV) Never done HPV VACCINE(1 - 2-dose series) Never done PAP TESTING Never done DEPRESSION ASSESSMENT Never done HPI Riddhi Medley is a 27 year old female. PMH significant for ACTIVE PROBLEM LIST History of Urinary Tract Infection Chronic Interstitial Cystitis With Hematuria Abnormal Uterine Bleeding Pelvic and Perineal Pain No prior CC visits. Presents today to establish care with Elkin Oliva MD Chart review shows she would like FMLA papers completed for headache. Appointment request is for bladder concerns and mental stability. Previous PCP: [facility] last seen one year ago. ER/Hospitalization: [facility] 2019. September 06, 2022 [facility] Outside records: care everywhere, [facility]. [facility] visit 2019 4 abdominal pain dysuria and nausea. SR. DIRECTOR PRODUCT MANAGEMENT: Cary Jackson MD [facility] [place] Seen by Emma Schilling MD at [facility] for report of incontinence and blood clots April 05, 2022. Notedrecurrent UTIs. She noted mixed urinary incontinence and [...] for repeat cystoscopy then possible bladder resection. [facility]ia [place] if surgery is needed Prior [...] dots prior to headache. Notes can feel dizzywith headache. Says vision pulsates, explained as difficult to read when aura is present. Not sure if neck pain starts first. Review of Systems Constitutional: Negative. Neurological: Positive for headaches. Psychiatric/Behavioral: Positive for dysphoric mood. The patient is nervous/anxious. Objective BP 112/70 Pulse 88 Resp 16 Ht 157.5 cm (5' 2) Wt 46.7 kg (103 lb) LMP 09/08/2019 [...] that she was seen by urogynecologist at [facility] and underwent cystoscopy. She reports has been referred to another urologist for possible resection. She states that the urologist wants to repeat cystoscopy to determine if surgery is needed. 1 mo recheck Rod Rosales APRN.RADIO SURVEY WORKER headache, PTSD 6 mo follow up Elkin Oliva MD - establish Rod Rosales APRN.RADIO SURVEY WORKER Medical Decision Making: Problems: Moderate: 2+ stable chronic illnesses Risk: Moderate: Drug management Medical Decision Making Level: 4 - Moderate documented in this encounterFirelands Regional Medical Center04-04-2023 Miscellaneous Notes* Telephone Encounter - Michelle Proctor LPN - 11/06/2022 2:18 PM EDT FMLA paperwork has been received and at nurse's desk for appointment on 11/08/22 * Telephone Encounter - Eugenie Grewal - 11/05/2022 1:06 PM EDT Patient called to report that [employer] will be faxing FMLA paper work prior to the patient's appointment on 11/08/22. documented in this encounterFirelands Regional Medical Center[address] Schilling [facility] September 06, 2022 12:13pm Note Date/Time September 06, 2022 1 0:47am [facility] Medical Records Department [address] [place] [address] Instructions for Home/Discharge Instructions 09/06/22 1046 MR#: [id number] Acct: [id number] Name: RIDDHI MEDLEY Rep #:[id number] : 1995 27 From: Emma Langford PCP: Care PhysicianCodi Primary Status :[place] [facility] Discharge Instructions Diet Discharge Diet: No restrictions Activity Discharge Activity: Return to Normal Activity Dressing / Incision Call your doctor if you observe: Fever of 101 or Higher, Inability to urinate and Inability to have a bowel movement Follow Up Care Please Follow Up With: Emma Schilling MD When: call office for appt to be seen next week Test Results: Test results from this visit will be discussed in further detail at your follow- up appointment, if applicable. Discharge Plan Admission Attending Provider: Emma Schilling Primary Care Provider: Humphrey Physician,Codi Primary Discharge Orders/Prescriptions Prescriptions: New oxycodone-acetaminophen [Percocet] 5-325 mg tablet 1 tab PO Q8H PRN (Reason: pain) 3 Days Qty: 10 0RF Continued docusate sodium 50 mg Capsule 50 mg PO PRN PRN (Reason: Constipation) phenazopyridine [Pyridium] 200 mg tablet 200 mg PO TID PRN PRN (Reason: Bladder Spasms) 7 Days Qty: 30 0RF Excedrin Migraine 250-250-65 mg Tablet 1 tab PO Q6H PRN (Reason: Migraine Headache) cephalexin 500 mg capsule 500 mg PO TID Label Comments: TAKE 1 CAPSULE BY MOUTH THREE TIMES DAILY Referrals / Follow Up: Care Physician,No Primary [Primary Care Provider] - Disposition Disposition (needs filled in before D/C Order can be placed): Home, Self Care 09/06/22 1213<Electronically signed by Emma Schilling MD>Emma Schilling MD CC: No Primary Care Physician ~ Signed [facility] Work Phone: 1(347) 820-508302-02-2023 Procedure [facility] Anesthesiology Consult note* CATALINA GUPTA MD: PERFORM, SIGN, VERIFY Event Display: Anesthesiology Consultation Authored Date: Patient: RIDDHI MEDLEY Age: 28 years Sex: Female : 1995 [...] CATALINA GUPTA MD on 03/26/2023 01:08 PM [facility] Discharge summary Author Dr. Montana [facility] January 26, 2023 11:25am Note Date/Time January 26, 2023 9:35 am [facility] Medical Records Department [address] [place] [id number] Emergency Department Summary 01/26/23 MR#: [id number] Acct: [id number] Name: RIDDHI MEDLEY Rep #:[id number] : 1995 27 From: Manny Montana DO PCP: Dr. Elkin Oliva MD Status:RE G ER Location: ED HPI HPI - Female History of Present Illness Chief Complaint: Complaint Narrative Narrative: 47-year-old female with history of UTIs, interstitial cystitis, bladder ulcers presenting with dysuria. She states that does burn when she tries to pee and she is going more often. She states that when she does the void and forces it it almost is like her bladder spasms and her body spasms all over until she finishes voiding. This is new for her. Its not usually this severe. No fevers. No diarrhea or constipation. PFSH PFSH Medical History Alcohol use Anemia Bladder ulcer Dietary restriction Easy bruising Gestational hypertension History of anxiety History of depression Marijuana use Migraine Vapes nicotine containing substance Home Medications docusate sodium 50 mg capsule 50 mg PO PRN PRN Constipation 04/26/22 [History Last Taken Unknown] phenazopyridine 200 mg tablet (Pyridium) 200 mg PO TID PRN PRN Bladder Spasms 7 days #30 tabs 05/03/22 [Rx Last Taken Unknown] gcxfyoi-cvalruegqilbh-pgxkldzy 250 mg-250 mg-65 mg tablet (Excedrin Migraine) 1 tab PO Q6H PRN Migraine Headache 08/30/22 [History Last Taken Unknown] cephalexin 500 mg capsule 500 mg PO TID 09/06/22 [History Last Taken 09/06/22] oxycodone-acetaminophen 5 mg-325 mg tablet (Percocet) 1 tab PO Q8H PRN pain 3 days #10 tabs 09/06/22 [Rx Last Taken Unknown] cephalexin 500 mg capsule 500 mg PO Q12 #14 CAPSULES 01/26/23 [Rx Last Taken Unknown] Allergy/AdvReac Type Severity Reaction Status Date / Time No Known Allergies Allergy Verified 01/26/23 08:29 Family History Grandmother Diabetes Breast cancer Grandfather Diabetes Folng-6-idvrzexwvqm deficiency Surgical History delivery delivered History of cystoscopy Social History Smoking Status: Current every day smoker tobacco type: e-cigarettes Electronic Cigarette Use: with nicotine alcohol intake: never substance use type: does not use caffeine: Yes (rarely) what type of physical activity do you participate in: walking and other details: 20,000 steps per day seatbelt use: always do you feel safe at home: Yes additional social history: Boyfriend-Gerardo Goodson Patient works at [employer] ED Constitutional Constitutional ED: Denies chills or fever(s) Eyes Eyes: Denies change in vision or diplopia ENT ENT ED: Denies rhinorrhea or sore throat Cardiovascular Cardiovascular: Denies chest pain or palpitations Respiratory/Chest Respiratory/Chest: Denies cough or dyspnea Gastrointestinal Gastrointestinal: Reports nausea Genitourinary Genitourinary ED: Reports dysuria, hematuria and urinary frequency Musculoskeletal Musculoskeletal: Reports other Details: Muscle spasms Integumentary Denies abscess or Abrasions Neurologic Neurologic: Denies headache(s) or paresthesias EXAM Physical Exam Const Vital Signs: 01/26/23 08:27 Temperature 97.1 F L Temperature Source Temporal Pulse Rate 108 H Respiratory Rate 16 Blood Pressure 148/95 H Blood Pressure Mean 112 Pulse Ox 100 Oxygen Delivery Method Room Air MDM MDM MDM Narrative Medical decision making narrative: Patient presenting with UTI symptoms. This could also be interstitial cystitis,pyelonephritis. She does not have any CVA tenderness. Differential includes UTI, pyelonephritis, electrolyte abnormalities. we will obtain a urinalysis. Given the patient is having muscle spasms at the end of voiding I will check a CBC to assess white blood cell count, hemoglobin, platelets. I will assess a CMP to assess liver function, renal function, electrolytes. Patient given a liter of IV fluids. Patient states that Keflex is usually the antibiotic that works for her so she is given a dose of this here. Impression: 1. UTI Lab Data Attestation: I reviewed the patient's lab results. Labs: Laboratory Results - last 24 hr 01/26/23 01/26/23 01/26/23 08:51 09:30 09:30 WBC 7.9 RBC 4.53 Hgb 14.0 Hct 40.5 MCV 89.4 MCH 30.9 MCHC 34.6 RDW Std Deviation 38.6 RDW Coeff of Cosme 11.9 Plt Count 248 MPV 10.5 Immature Gran % (Auto) 0.300 Neut % (Auto) 65.2 Lymph % (Auto) 28.8 [place] % (Auto) 4.4 Eos % (Auto) 0.8 Baso % (Auto) 0.5 Absolute Neuts (auto) 5.2 Absolute Lymphs (auto) 2.28 Nucleated RBC % 0 Sodium 141 Potassium 3.9 Chloride 107 Carbon Dioxide 27.0 Anion Gap 7 BUN 15 Creatinine 0.79 Estim Creat Clear Calc 80.36 Est GFR (MDRD) Af Amer 113 Est GFR (MDRD) Non-Af 93 BUN/Creatinine Ratio 19.0 Glucose 95 Calcium 9.0 Magnesium 2.3 Total Bilirubin 0.60 AST 10 L ALT 12 L Alkaline Phosphatase 66 Total Protein 7.6 Albumin 4.2 Globulin 3.4 Albumin/Globulin Ratio 1.2 Urine Color Yellow Urine Clarity Cloudy Urine pH 8.0 Ur Specific [place] 1.015 Urine Protein 500 H Urine Glucose (UA) Normal Urine Ketones 15 H Urine Occult Blood 250 H Urine Nitrite Negative Urine Bilirubin Negative Urine Urobilinogen Normal Ur Leukocyte Esterase 500 H Urine RBC > 100 SEEN Urine WBC 50-100 SEEN Ur Squamous Epith Cells 5-10 SEEN Triple Phos Crystals 1+ Urine Bacteria 2+ Urine Mucus 0 SEEN Urine Test Negative Discharge Plan Triage Chief Complaint: Complaint ED Provider: Manny Montana Dx/Rx/DC Orders Instructions: ED Cystitis Female Adult Prescriptions: New cephalexin 500 mg capsule 500 mg PO Q12 Qty: 14 0RF No Action docusate sodium 50 mg Capsule 50 mg PO PRN PRN (Reason: Constipation) phenazopyridine [Pyridium] 200 mg tablet 200 mg PO TID PRN PRN (Reason: Bladder Spasms) 7 Days Qty: 30 0RF Excedrin Migraine 250-250-65 mg Tablet 1 tab PO Q6H PRN (Reason: Migraine Headache) cephalexin 500 mg capsule 500 mg PO TID Label Comments: TAKE 1 CAPSULE BY MOUTH THREE TIMES DAILY oxycodone-acetaminophen [Percocet] 5-325 mg tablet 1 tab PO Q8H PRN (Reason: pain) 3 Days Qty: 10 0RF Primary Care Provider: Elkin Oliva Referrals: Elkin Oliva MD [Primary Care Provider] - Disposition Disposition: Home, Self Care What to do if you have Problems For any increased pain, shortness of breath, bleeding, nausea or vomiting, chestpain, or any unexpected problems, contact your Primary Care Provider. Call [facility] ([phone]) or report to the closest Emergency Room. Call 911 if necessary. 01/26/23 1125 <Electronically signed by Manny Montana DO> Cosigner Signature (if applicable): CC: Dr. Elkin Oliva MD ~ Signed [facility] Work Phone: Evaluation + Plan note No data available for this section [facility] Evaluation + Plan note Future Appointments Appointment Date:03/13/2023 10:00:00 AM Scheduled Provider:JOSEPH POE Location:UROLOGY Appointment Type:URO OV Physical 20 min Appointment Date:03/26/2023 09:10:00 AM Scheduled Provider: Location:Main OR Appointment Type:Surgery [facility] Urology Appointment Date:04/10/2023 11:00:00 AM Scheduled Provider:JJ VELÁZQUEZ MD Location:UROLOGY Appointment Type:URO OV Post Op Future Scheduled Tests Laboratory* Basic Metabolic Panel 01/16/23 * Complete Blood Count 01/16/23 [facility] Evaluation + Plan note Future Appointments Appointment Date:03/13/2023 10:00:00 AM Scheduled Provider:JOSEPH POE Location:UROLOGY Appointment Type:URO OV Physical 20 min Appointment Date:03/26/2023 10:20:00 AM Scheduled Provider: Location:Main OR Appointment Type:Surgery [facility] Urology Appointment Date:04/10/2023 11:00:00 AM Scheduled Provider:JJ VELÁZQUEZ MD Location:UROLOGY Appointment Type:URO OV Post Op Future Scheduled Tests Laboratory* Pathology Non-Assembly Press Operator Request 03/06/23 * Basic Metabolic Panel 01/16/23 * Complete Blood Count 01/16/23 [facility] Evaluation + Plan note Future Appointments Appointment Date:03/26/2023 10:20:00 AM Scheduled Provider: Location:Main OR Appointment Type:Surgery - [place] [facility] Appointment Date:04/10/2023 11:10:00 AM Scheduled Provider:JJ VELÁZQUEZ MD Location:UROLOGY Appointment Type:URO OV Post Op [facility] evaluation + Plan note Future Appointments Appointment Date:04/10/2023 11:10:00 AM Scheduled Provider:JJ VELÁZQUEZ MD Location:UROLOGY Appointment Type:URO OV Post Op [facility] evaluation noteNo assessment information available [facility] Work Phone: evaluation note* Diagnosis Onset Date Resolution Status Abnormal uterine bleeding ac mickey Mixed incontinence urge and stress acute [facility] Work Phone: evaluation note* Diagnosis Onset Date Resolution Status Bladder ulcer acute [facility] Work Phone: evaluation note* Diagnosis History of headache- Primary Personal history of other specified diseases PTSD (post-traumatic stress disorder) Posttraumatic stress disorder Acute nonintractable headache, unspecified headache type Interstitial cystitis Chronic interstitial cystitis documented in this encounter [facility] note* Diagnosis Treatment not available- Primary Procedure not carried out for other reasons documented in this encounter [facility] note* Diagnosis Procedure and treatment not carried out for other reasons- Primary documented in this encounter [facility] note* Diagnosis Migraine with aura and without status migrainosus, not intractable- Primary Migraine with aura, without mention of intractable migraine without mention of status migrainosus Chronic daily headache Headache PTSD (post-traumatic stress disorder) Posttraumatic stress disorder Interstitial cystitis Chronic interstitial cystitis Eosinophilic cystitis Other specified types of cystitis documented in this encounter [facility] note* Diagnosis Migraine with aura and without status migrainosus, not intractable- Primary Migraine with aura, without mention of intractable migraine without mention of status migrainosus Chronic daily headache Headache documented in this encounter [facility] note* Diagnosis Acute cystitis with hematuria- Primary Acute cystitis documented in this encounter [facility] note* Diagnosis Chronic daily headache- Primary Headache documented in this encounter [facility] note* Diagnosis Muscle spasm- Primary Spasm of muscle Migraine with aura and without status migrainosus, not intractable Migraine with aura, without mention of intractable migraine without mention of status migrainosus Chronic daily headache [facility] Onset Date Resolution Status Bladder spasms acute Urinary tract infection acut e Encounter for routine gynecological examination noneactive [facility] Work Phone: Evaluation note* Diagnosis Onset Date Resolution Status Bladder spasms acute Urinary tract infection acut e Encounter for routine gynecological examination noneactive Contraceptive management acu te LGSIL on Pap smear of cervix acute [facility] Work Phone: Evaluation note* Diagnosis PTSD (post-traumatic stress disorder)- Primary Posttraumatic stress disorder [facility] Diagnosis NO SHOW- Primary documented in this encounter [facility] note* Diagnosis Migraine with aura and without status migrainosus, not intractable- Primary Migraine with aura, without mention of intractable migraine without mention of status migrainosus Muscle spasm Spasm of muscle Major depressive disorder in partial remission, unspecified whether recurrent (HCC) [facility] Diagnosis Irregular menses- Primary Irregular menstrual cycle Migraine with aura and without status migrainosus, not intractable Migraine with aura, without mention of intractable migraine without mention of status migrainosus Chronic daily headache Headache PTSD (post-traumatic stress disorder) Posttraumatic stress disorder documented in this encounter [facility] note* Diagnosis PTSD (post-traumatic stress disorder)- Primary Posttraumatic stress disorder Irregular menses Irregular menstrual cycle Encounter for immunization Need for other specified prophylactic vaccination against single bacterial disease Migraine with aura and without status migrainosus, not intractable Migraine with aura, without mention of intractable migraine without mention of status migrainosus Tobacco use Tobacco use disorder [facility] No data available for this section [facility] Progress note No data available for this section [facility] Reason for referral (narrative)No reason for referral [facility] Work Phone: Summary Purpose Family History No Family History Records Found Relationship Condition Age at Onset Recorded Date/T [place] grandmother Diabetes mellitus Unknown Malignant neoplasm of breast Unknown grandfather Diabetes mellitus Unknown Yxfpi-5-dmdagwnmwer deficiency Unknown Advance Directives No Advanced Directives Records Found Advance Directive Response Recorded Date/ Time Living Will No November 16, 2021 7:55pm Power of Pipe Caulker No November 16 7:55pm Advance Directive Response Recorded Date/ Time Living Will Yes April 26, 2022 2:56pm Power of Pipe Caulker No April 2:56pm Advance Directive Response Recorded Date/ Time Living Will No August 30 10:03am Power of Pipe Caulker No August 30, 2022 10:03am Advance Directive Response Recorded Date/ Time Living Will No January 26, 2023 8:32am Power of Pipe Caulker No January 26 8:32am Advance Directive Response Recorded Date/ Time Living Will No January 26, 2023 7:32am Power of Pipe Caulker No January 26 7:32am Advance Directive Response Recorded Date/ Time Living Will No July 19, 2 023 2:42pm Power of Pipe Caulker No July 19, 2023 2:42pm Advance Directive Response Recorded Date/ Time Living Will No August 28 4:14pm Power of Pipe Caulker No August 28, 2023 4:14pm Advance Directive Response Recorded Date/ Time Living Will No September 18, 2 024 2:08pm Power of Pipe Caulker No September 18, 2023 2:08pm Chief Complaint and Reason for Visit Chief Complaint Urinary tract infect ion VAGINAL PAIN Chief Complaint incontinence and blo od clots Reason for Visit Abnormal uterine ble eding Mixed incontinence urge and stress Chief Complaint incontinence and blo od clots ABNORMAL BLEEDING Reason for Visit Abnormal uterine ble eding Mixed incontinence urge and stress Chief Complaint incontinence and blo od clots ABNORMAL BLEEDING UROGRAM HEMATURIA Reason for Visit Abnormal uterine ble eding Mixed incontinence urge and stress Chief Complaint CYSTO, BX, FULGURATI ON Reason for Visit Bladder ulcer Chief Complaint UTI Chief Complaint Annual (CARRIAGE RIDER) Reason for Visit Bladder spasms Urinary tract infection Encounter for routine gynecological examination 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 Colposcopy LGSIL Reason for Visit Bladder spasms Urinary tract infection Encounter for routine gynecological examination Contraceptive management LGSIL on Pap smear of cervix 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 Colposcopy LGSIL gi bleed Reason for Visit Bladder spasms Urinary tract infection Encounter for routine gynecological examination Contraceptive management LGSIL on Pap smear of cervix 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 Colposcopy LGSIL gi bleed Cysto,Biopsy,Fulguration,Bladder Tu Reason for Visit Bladder spasms Urinary tract infection Encounter for routine gynecological examination Contraceptive management LGSIL on Pap smear of cervix 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 Reason for Visit Bladder spasms Urinary tract infection Encounter for routine gynecological examination Chief Complaint Admit Date Hormonal issues/Missed period October 8:25am Nexplanon Removal/Mirena Insertion November 27, 2024 1:20pm IUD check January 11, 2025 1:57p m Reason for Visit Admit Date Contraceptive management October 19 8:25am Mood disorder October 19, 2024 8:2 5am Contraceptive management November 27 1:20pm IUD check up January 11, 2025 1:57p m Pelvic pain January 11, 2025 1:57p m Medications Administered Section Inactive Administered Medications - [...] Referred By Hung vazquez Referred To Contact Diagnoses PTSD (post-traumatic stress disorder) Procedures CONSULT TO PSYCHIATRY OFFICE/OUTPATIENT [facility] 60 MINUTES Rod Rosales, CONFERENCE TRANSLATOR.RADIO SURVEY WORKER [address] [place] [address] Referral ID Status Reason Start Date Expiration Date Visits Requested Visits Authorized [id number] Pending Review PCP Requested Referral 11/15/2023 11/14/2024 1 1 Specialty Diagnoses / Procedures Referred By Hung vazquez Referred To Contact Neurology Diagnoses Migraine with aura and without status migrainosus, not intractable Chronic daily headache Procedures CONSULT TO NEUROLOGY OFFICE/OUTPATIENT [facility] 60-74 MINUTES Elkin Oliva MD [address] [place] [address] Referral ID Status Reason Start Date Expiration Date Visits Requested Visits Authorized [id number] Authorized PCP Requested Referral 01/01/2023 01/01/2024 1 1 Additional Source Comments INFORMATION SOURCE (unrecogn ized section and content) DATE CREATED AUTHOR 10/07/2019 [facility] DATE CREATED AUTHOR AUTHOR'S ORGANIZ ATION 01/30/2023 [facility] DATE CREATED AUTHOR AUTHOR'S ORGANIZ ATION 04/01/2023 [facility] ([place]) DATE CREATED AUTHOR AUTHOR'S ORGANIZ ATION 11/03/2024 [facility] DATE CREATED AUTHOR AUTHOR'S ORGANIZ ATION 01/12/2025 [facility] Goals (unrecognized section and content) Goals may be documented in a n alternate sectionGoals may be documented in an alternate sectionGoals may be documented in an alternate sectionGoals may be documented in an alternate section No data available for this section No data available for this sectionGoals may be documented in an alternate section No data available for this section No data available for this section No data available for this sectionGoals may be documented in an alternate sectionGoals may be documented in an alternate sectionGoals may be documented in an alternate sectionGoals may be documented in an alternate sectionGoals may be documented in an alternate section Care Teams (unrecognized sec tion and content) Team Status: Active Member Role Status Dates No Primary Care Physician Family Provider Active No Primary Care Physician Primary Care Provider Active Team Status: Inactive Member Role Status Dates No Primary Care Physician Primary Care Provider Active Dr. Emma Schilling MD Attending Provider, Referring Celine interiano Active Chemical Production Engineer Relationship Specialty Start Date End Date Elkin Oliva MD [address] [place] [address] PCP - General Internal Medicine 11/08/22 Chemical Production Engineer Relationship Specialty Start Date End Date Elkin Oliva MD [address] [place] [address] PCP - General Internal Medicine 11/08/22 Chemical Production Engineer Relationship Specialty Start Date End Date Elkin Oliva MD [address] [place] [address] PCP - General Internal Medicine 11/08/22 Chemical Production Engineer Relationship Specialty Start Date End Date Elkin Oliva MD [address] [place] [address] PCP - General Internal Medicine 11/08/22 Chemical Production Engineer Relationship Specialty Start Date End Date Elkin Oliva MD [address] [place] [address] PCP - General Internal Medicine 11/08/22 Chemical Production Engineer Relationship Specialty Start Date End Date Elkin Oliva MD [address] [place] [address] PCP - General Internal Medicine 11/08/22 Team Status: Active Member Role Status Dates No Primary Care Physician Family Provider Active Dr. Elkin Oliva MD Primary Care Provider Active Team Status: Inactive Member Role Status Dates Dr. Manny Montana DO Emergency Provider Active Dr. Elkin Oliva MD Primary Care Provider Active Chemical Production Engineer Relationship Specialty Start Date End Date Elkin Oliva MD [address] [place] [address] PCP - General Internal Medicine 11/08/22 Chemical Production Engineer Relationship Specialty Start Date End Date Elkin Oliva MD [address] [place] [address] PCP - General Internal Medicine 11/08/22 Chemical Production Engineer Relationship Specialty Start Date End Date Elkin Oliva MD [address] [place] [address] PCP - General Internal Medicine 11/08/22 Chemical Production Engineer Relationship Specialty Start Date End Date Elkin Oliva MD [address] [place] [address] PCP - General Internal Medicine 11/08/22 Chemical Production Engineer Relationship Specialty Start Date End Date Elkin Oliva MD [address], [place] [address] PCP - General Internal Medicine 11/08/22 Chemical Production Engineer Relationship Specialty Start Date End Date Elkin Oliva MD [address], [place] [address] PCP - General Internal Medicine 11/08/22 Team Status: Inactive Member Role Status Dates Dr. Elkin Oliva MD Primary Care Provider, Referr ing Provider Active Mahnaz Lovett CNM Attending Provider Active Team Status: Inactive Member Role Status Dates Dr. Elkin Oliva MD Primary Care Provider Active Mahnaz Lovett CNM Attending Provider, Referring Pro vider Active Team Status: Inactive Member Role Status Dates Dr. Elkin Oliva MD Primary Care Provider, Referr ing Provider Active Dr. Nohelia Munroe DO Attending Provider Activ e Team Status: Inactive Member Role Status Dates Dr. Elkin Oliva MD Primary Care Provider Active Dr. Lolly Judge DO Attending Provider, Emergency Pro vider Active Team Status: Inactive Member Role Status Dates Dr. Elkin Oliva MD Primary Care Provider Active Dr. Nohelia Munroe DO Attending Provider Activ e Team Status: Inactive Member Role Status Dates Dr. Elkin Oliva MD Primary Care Provider Active Dr. Nohelia Lawson MD Emergency Provider Active Team Status: Inactive Member Role Status Dates Dr. Elkin Oliva MD Primary Care Provider Active Dr. Nohelia Lawson MD Attending Provider, Emergency Provider Active Team Status: Inactive Member Role Status Dates Dr. Elkin Oliva MD Primary Care Provider Active Dr. Emma Schilling MD Attending Provider, Referring P romaxider Active Chemical Production Engineer Relationship Specialty Start Date End Date Elkin Oliva MD [address] [place] [address] PCP - General Internal Medicine 11/08/22 Chemical Production Engineer Relationship Specialty Start Date End Date Elkin Oliva MD [address] [place] [address] PCP - General Internal Medicine 11/08/22 Team Status: Inactive Member Role Status Dates Dr. Elkin Oliva MD Primary Care Provider Active Dr. Lolly Judge DO Emergency Provider Active Chemical Production Engineer Relationship Specialty Start Date End Date Elkin Oliva MD [address] [place] [address] PCP - General Internal Medicine 11/08/22 Rod Rosales, CONFERENCE TRANSLATOR.RADIO SURVEY WORKER [address] [place] [address] Personal Carer Internal Medicine 07/13/24 Kimberli Bridges CONFERENCE TRANSLATOR.BUILDING RENTAL SUPERINTENDENT [address] [place] [address] Personal Carer Internal Medicine 07/13/24 Chemical Production Engineer Relationship Specialty Start Date End Date Elkin Oliva MD [address] [place] [address] PCP - General Internal Medicine 11/08/22 Rod Rosales, CONFERENCE TRANSLATOR.RADIO SURVEY WORKER [address] [place] [address] Personal Carer Internal Medicine 07/13/24 Kimberli Bridges CONFERENCE TRANSLATOR.BUILDING RENTAL SUPERINTENDENT [address] [place] [address] Personal Carer Internal Medicine 07/13/24 Chemical Production Engineer Relationship Specialty Start Date End Date Elkin Oliva MD [address] [place] [address] PCP - General Internal Medicine 11/08/22 Rod Rosales, CONFERENCE TRANSLATOR.RADIO SURVEY WORKER [address] [place] [address] Personal Carer Internal Medicine 07/13/24 Kimberli Bridges CONFERENCE TRANSLATOR.BUILDING RENTAL SUPERINTENDENT [address] [place] [address] [facility] Internal Medicine 10/27/24 Chemical Production Engineer Relationship Specialty Start Date End Date Elkin Oliva MD [address] [place] [address] PCP - General Internal Medicine 11/08/22 Rod Rosales, CONFERENCE TRANSLATOR.RADIO SURVEY WORKER [address] [place] [address] [facility] Internal Medicine 07/13/24 Kimberli Bridges CONFERENCE TRANSLATOR.BUILDING RENTAL SUPERINTENDENT [address] [place] [address] [facility] Internal Medicine 07/13/24 10/23/24 Kimberli Bridges CONFERENCE TRANSLATOR.BUILDING RENTAL SUPERINTENDENT [address] [place] [address] [facility] Internal Medicine 10/27/24 Team Status: Inactive Member Role Status Dates Dr. Elkin Oliva MD Primary Care Provider Active Start: October 19, 2024 End: October 19, 2024 Dr. Elkin Oliva MD Referring Provider Active Start: October 19, 2024 End: October 19, 2024 Dr. Nohelia Munroe DO Attending Provider Activ e Start: October 19, 2024 End: October 19, 2024 Team Status: Inactive Member Role Status Dates Dr. Elkin Oliva MD Primary Care Provider Active Start: November 27, 2024 End: November 27, 2024 Dr. Elkin Oliva MD Referring Provider Active Start: November 27, 2024 End: November 27, 2024 Mahnaz Lovett CNM Attending Provider Active S tart: November 27, 2024 End: November 27, 2024 Team Status: Inactive Member Role Status Dates Dr. Elkin Oliva MD Primary Care Provider Active Start: January 11, 2025 End: January 11, 2025 Dr. Elkin Oliva MD Referring Provider Active Start: January 11, 2025 End: January 11, 2025 Mahnaz Lovett CNM Attending Provider Active S tart: January 11, 2025 End: January 11, 2025 Source Comments (unrecognize d section and content) In the event this informatio n is protected by the Federal Confidentiality of Alcohol and Drug Abuse Patient Records regulations: The Federal rules restrict any use of the information to criminally investigate or prosecute any alcohol or drug abuse patient.[facility] the event this information is protected by the Federal Confidentiality of Alcohol and Drug Abuse Patient Records regulations: The Federal rules restrict any use of the information to criminally investigate or prosecute any alcohol or drug abuse patient.[facility] Center[facility] the event this information is protected by the Federal Confidentiality of Alcohol and Drug Abuse Patient Records regulations: The Federal rules restrict any use of the information to criminally investigate or prosecute any alcohol or drug abuse patient.[facility] CenterIn the event this information is protected by the Federal Confidentiality of Alcohol and Drug Abuse Patient Records regulations: The Federal rules restrict any use of the information to criminally investigate or prosecute any alcohol or drug abuse patient.[facility] the event this information is protected by the Federal Confidentiality of Alcohol and Drug Abuse Patient Records regulations: The Federal rules restrict any use of the information to criminally investigate or prosecute any alcohol or drug abuse patient.[facility] CenterIn the event this information is protected by the Federal Confidentiality of Alcohol and Drug Abuse Patient Records regulations: The Federal rules restrict any use of the information to criminally investigate or prosecute any alcohol or drug abuse patient.[facility] Center[facility] the event this information is protected by the Federal Confidentiality of Alcohol and Drug Abuse Patient Records regulations: The Federal rules restrict any use of the information to criminally investigate or prosecute any alcohol or drug abuse patient.[facility] the event this information is protected by the Federal Confidentiality of Alcohol and Drug Abuse Patient Records regulations: The Federal rules restrict any use of the information to criminally investigate or prosecute any alcohol or drug abuse patient.[facility] Center[facility] the event this information is protected by the Federal Confidentiality of Alcohol and Drug Abuse Patient Records regulations: The Federal rules restrict any use of the information to criminally investigate or prosecute any alcohol or drug abuse patient.[facility] CenterIn the event this information is protected by the Federal Confidentiality of Alcohol and Drug Abuse Patient Records regulations: The Federal rules restrict any use of the information to criminally investigate or prosecute any alcohol or drug abuse patient.[facility] the event this information is protected by the Federal Confidentiality of Alcohol and Drug Abuse Patient Records regulations: The Federal rules restrict any use of the information to criminally investigate or prosecute any alcohol or drug abuse patient.[facility] Center[facility] the event this information is protected by the Federal Confidentiality of Alcohol and Drug Abuse Patient Records regulations: The Federal rules restrict any use of the information to criminally investigate or prosecute any alcohol or drug abuse patient.[facility] Center[facility] the event this information is protected by the Federal Confidentiality of Alcohol and Drug Abuse Patient Records regulations: The Federal rules restrict any use of the information to criminally investigate or prosecute any alcohol or drug abuse patient.[facility] CenterIn the event this information is protected by the Federal Confidentiality of Alcohol and Drug Abuse Patient Records regulations: The Federal rules restrict any use of the information to criminally investigate or prosecute any alcohol or drug abuse patient.[facility] CenterIn the event this information is protected by the Federal Confidentiality of Alcohol and Drug Abuse Patient Records regulations: The Federal rules restrict any use of the information to criminally investigate or prosecute any alcohol or drug abuse patient.[facility] CenterIn the event this information is protected by the Federal Confidentiality of Alcohol and Drug Abuse Patient Records regulations: The Federal rules restrict any use of the information to criminally investigate or prosecute any alcohol or drug abuse patient.[facility] CenterIn the event this information is protected by the Federal Confidentiality of Alcohol and Drug Abuse Patient Records regulations: The Federal rules restrict any use of the information to criminally investigate or prosecute any alcohol or drug abuse patient.[facility] CenterIn the event this information is protected by the Federal Confidentiality of Alcohol and Drug Abuse Patient Records regulations: The Federal rules restrict any use of the information to criminally investigate or prosecute any alcohol or drug abuse patient.[facility] CenterIn the event this information is protected by the Federal Confidentiality of Alcohol and Drug Abuse Patient Records regulations: The Federal rules restrict any use of the information to criminally investigate or prosecute any alcohol or drug abuse patient.[facility] CenterIn the event this information is protected by the Federal Confidentiality of Alcohol and Drug Abuse Patient Records regulations: The Federal rules restrict any use of the information to criminally investigate or prosecute any alcohol or drug abuse patient.[facility] CenterIn the event this information is protected by the Federal Confidentiality of Alcohol and Drug Abuse Patient Records regulations: The Federal rules restrict any use of the information to criminally investigate or prosecute any alcohol or drug abuse patient.[facility] CenterIn the event this information is protected by the Federal Confidentiality of Alcohol and Drug Abuse Patient Records regulations: The Federal rules restrict any use of the information to criminally investigate or prosecute any alcohol or drug abuse patient.[facility] CenterIn the event this information is protected by the Federal Confidentiality of Alcohol and Drug Abuse Patient Records regulations: The Federal rules restrict any use of the information to criminally investigate or prosecute any alcohol or drug abuse patient.[facility] CenterIn the event this information is protected by the Federal Confidentiality of Alcohol and Drug Abuse Patient Records regulations: The Federal rules restrict any use of the information to criminally investigate or prosecute any alcohol or drug abuse patient.[facility] CenterIn the event this information is protected by the Federal Confidentiality of Alcohol and Drug Abuse Patient Records regulations: The Federal rules restrict any use of the information to criminally investigate or prosecute any alcohol or drug abuse patient.[facility] CenterIn the event this information is protected by the Federal Confidentiality of Alcohol and Drug Abuse Patient Records regulations: The Federal rules restrict any use of the information to criminally investigate or prosecute any alcohol or drug abuse patient.[facility] CenterIn the event this information is protected by the Federal Confidentiality of Alcohol and Drug Abuse Patient Records regulations: The Federal rules restrict any use of the information to criminally investigate or prosecute any alcohol or drug abuse patient.[facility] Reason for Visit (unrecogniz ed section and content) Reason Comments FMLA Paperwork Reason Comments Establish Care Reason Comments bladder problems Reason Comments Appointment Cancelled Reason Comments F/U 6 months Reason Comments Disability and leave forms from [employer] Reason Onset Date Comments Refill Request 01/24/2023 Reason Comments [facility] ER update Results Reason Comments FMLA Forms Reason Comments Consult Migraine Specialty Diagnoses / Procedures Referred By Controm t Referred To Contact Neurology Diagnoses Migraine with aura and without status migrainosus, not intractable Chronic daily headache Procedures CONSULT TO NEUROLOGY OFFICE/OUTPATIENT [facility] 60-74 MINUTES Elkin Oliva MD [address] [place] [address] Referral ID Status Reason Start Date Expiration Date V isits Requested Visits Authorized [id number] Closed PCP Requested Referral 01/01/2023 01/01/2024 1 1 Reason Comments Medication Problem amitriptyline (ELAVI L) 10 mg tablet Reason Comments ED Follow-up [facility] ED follow up fro m 01/26/2023 Reason Onset Date Comments Refill Request 02/28/2023 Reason Onset Date Comments Refill Request 03/24/2023 Reason Comments Migraine with aura and without status mi grainosus, not intr Reason Comments Medication Question Reason Comments Follow Up Reason Onset Date Comments Refill Request 07/10/2023 Reason Comments requesting referral Reason Comments No Show Specialty Diagnoses / Procedures Referred By Contac t Referred To Contact Diagnoses PTSD (post-traumatic stress disorder) Procedures CONSULT TO PSYCHIATRY OFFICE/OUTPATIENT [facility] 60 MINUTES Rod Rosales, CONFERENCE TRANSLATOR.RADIO SURVEY WORKER [address] [place] [address] Referral ID Status Reason Start Date Expiration Date Visits Requested Visits Authorized [id number] Pending Review PCP Requested Referral 11/15/2023 11/14/2024 1 1 Reason Comments F/U 6 months Reason Comments Hormone Problem FOR RECORDS PERTAINING TO PATIENTS WHO ARE [...] BE BASED ON THE PRIMARY CLINICAL RECORDS. [employer] provides no warranty or guarantee of the accuracy or completeness of information in this document.
== END | disposition home or self-care (01) ==
LOC: OPUS 10:11 → US 10:13
PROVIDERS: PCP Internal Medicine; Referring Provider Advanced Practice Midwife; Visit Provider Advanced Practice Midwife
DX: R10.2 Pelvic and perineal pain (principal)
CPT/HCPCS: 76830

== ENCOUNTER → 2025-03-01 | Outpatient (CLI) | payer MEDICAID, SELFPAY ==
--- NOTE | 2025-03-01 10:27 | US_ITS ---
PROCEDURE: TRANSVAGINAL NON- 03/01/2025 REASON FOR EXAM: OVARIAN CYST TECHNIQUE: TRANSVAGINAL NON- COMPARISON: Prior study dated January 13, 2025. FINDINGS: Measurements: Uterus: 8.5 cm x 5.5 cm x 4.8 cm with a volume of 115.26 mL Endometrial Thickness: 4.6 mm Right Ovary: 2.7 cm x 2.9 cm x 1.9 cm with a volume of 7.48 mL. Left Ovary: 4.4 cm x 4.2 cm x 2.7 cm with a volume of 25.79 mL. Uterus: Heterogeneous echotexture of the myometrium suggestive of fibroid change although no focal fibroid is seen. IUD is seen within the fundal portion of the endometrium. Endometrium: Unremarkable. Right ovary: Normal size and echotexture. Left ovary: Persistent complex cyst in the left ovary measuring 4 cm x 2.5 cm 2.4 cm. Focal thickening and septation within the cyst. Other: US/Transvaginal Non- IMPRESSION: Stable appearance of the complex cyst in the left ovary. The remainder of the examination is unchanged. An IUD is seen within the fundal portion of the endometrium. Reading Location: [facility]
== END | disposition home or self-care (01) ==
LOC: US 10:24
PROVIDERS: PCP Internal Medicine; Referring Provider Advanced Practice Midwife; Visit Provider Advanced Practice Midwife
DX: N83.292 Other ovarian cyst, left side (principal)
CPT/HCPCS: 76830

== ENCOUNTER 2025-03-22 16:25 | Emergency (ER) | payer MEDICAID, SELFPAY ==
[2025-03-22 16:25] VITALS: PULSE 64; RESP 16; O2SAT 99
[2025-03-22 16:26] VITALS: BP 138/79; PULSE 102; RESP 18; TEMP 36.9; O2SAT 99; BMI 21.0
[2025-03-22 17:09] LABS: Color, Urine Yellow (Yellow); Glucose, Dipstick Normal (Normal); Ketone-Dipstick Negative (Negative); Leukocyte Esterase-Dipstick 100 /ul (Negative); Nitrite-Dipstick Negative (Negative); Occult Blood-Urine 150 /ul (Negative); Protein-Dipstick 30 mg/dl (Negative); Specific Gravity, Urine 1.020 (1.002-1.030); Urine Bilirubin Dipstick Negative (Negative)
[2025-03-22 17:22] LABS: Hematocrit 38.4 % (37-47); Hemoglobin 13.2 g/dL (12.0-15.0); Immature Granulocytes Count 0.010 X10^3/uL (0.0-0.0); Mean Corp Hgb Conc 34.4 g/dL (32-36); Mean Corpuscular Volume 89.1 fL (81-99); Mean Platelet Vol. 11.1 fl (6.2-12.0); NRBC Flagged by Analyzer 0 % (0-5); Platelet Count 262 K/mm3 (150-450); RBC Distribution Width CV 11.9 % (11.6-14.6); RBC Distribution Width SD 39.1 fl (35.1-43.9); Red Blood Count 4.31 M/mm3 (4.2-5.4); White Blood Count 8.1 K/mm3 (4.4-11.0)
--- NOTE | 2025-03-22 17:43 | US_ITS ---
PROCEDURE: TRANSVAGINAL NON- 03/22/2025 REASON FOR EXAM: ACUTE LEFT ADNEXAL PAIN, HISTORY COMPLEX 5 CM CYST TECHNIQUE: TRANSVAGINAL NON- COMPARISON: 02/2025. FINDINGS: Measurements: Uterus measures 9.1 x 6.2 x 4.7 cm. Anteverted. No fibroids. Endometrial thickness of 4 mm. Intrauterine device is present in satisfactory position. Right ovary measures 2.5 x 1.9 x 1.7 cm. Left ovary measures 6.0 x 4.9 x 2.6 cm. Persistent left ovarian 5.3 x 4.3 x 2.2 cm cyst, previously 4.0 x 2.1 x 2.4 cm. Preserved vascular flow of the bilateral ovaries. No free fluid in the cul-de-sac. US/Transvaginal Non- IMPRESSION: Increased size of the complex left ovarian cyst. Further characterization with MRI is recommended. For uterine device in place. Reading Location: [id number]
[2025-03-22 18:07] LABS: Lipase 30 U/L (13-75)
[2025-03-22 18:09] LABS: AST(SGOT) 32 U/L (<=31); Alanine Aminotransfer ALT/SGPT 14 U/L (<=34); Albumin, Serum 4.7 g/dL (3.5-5.0); Alkaline Phosphatase 52 U/L (35-104); Anion Gap 12 (5-15); BUN 14 mg/dL (4-19); BUN/Creat Ratio 14.2 RATIO (10-20); Calcium,Total 9.7 mg/dL (7.6-11.0); Carbon Dioxide 24.6 mmol/L (21.0-32.0); Chloride 103 mmol/L (98-108); Estimated Creatinine Clearance 66.99 ml/min (50-250); Globulin 2.9 g/dL (2.2-4.2); Glucose 86 mg/dL (70-99); Potassium 4.6 mmol/L (3.3-5.1)
[2025-03-22 18:57] LABS: Internal QC Validated? YES +Cl - CLEAR BKGD; Pregnancy, Serum, hCG Quali. NEGATIVE Negative; Record Kit Lot#, Serum Preg. 962302
--- NOTE | 2025-03-22 18:58 | EX.ED.DYSGE1 ---
HPI History of Present Illness Chief Complaint: Abd Pain Detail of Chief Complaint: Left lower quadrant adnexal pain Informant: patient Onset/Context/Timing Onset: Today Context: Sudden Onset Timing: Continuous Quality: Pain Location: Left adnexa/left lower quadrant Current Severity: Moderate Maximum Severity: Severe Worsened by: Movement and pants buckled Relieved by: Nothing Associated Symptoms Associated Symptoms: No other symptoms Narrative Narrative: Patient is a 30-year-old woman. She had an ultrasound on March 01 that revealed her uterus to be 8.5 x 5.5 x 4.8 cm with a volume of 115.26 mL. The endometrium was thickened to 4.6 mm. Right ovary is 2.7 x 2.9 x 1.9 cm with a volume of 7.48 mL. Left ovary is 4.4 x 4.2 x 2.7 cm with a volume of 25.79. The interpretation per radiologist revealed a persistent complex cyst with focal thickening and septation within the cyst. Patient presents because abrupt onset of left lower quadrant/adnexal pain. Movement causes her pain. She had unbuckle her jeans because of discomfort. She still has discomfort but is less. She denies dysuria, frequency, urgency or hematuria. Last menses is unknown. She had a Mirena placed a couple of months ago. She is sexually active. Prior similar symptoms: Yes Recent Illness/Hospitalization: No PFSH [facility] Medical History Chronic bladder pain Depression Lesion of cervix Low grade squamous intraepithelial dysplasia Syncope Gastric reflux Constipation History of GI bleed PTSD (post-traumatic stress disorder) Marijuana use Anemia Easy bruising Vapes nicotine containing substance Bladder ulcer Dietary restriction Migraine Gestational hypertension History of depression History of anxiety Home Medications ?Medication ?Instructions ?Recorded ?Last Taken ?Type Lactobacillus acidophilus 250 500 mmu cells PO DAILY 09/18/23 09/24/23 History million cell capsule (Probiotic Acidophilus) cephalexin 250 mg capsule 250 mg PO QHS 09/18/23 09/24/23 History cyclobenzaprine 5 mg tablet 5 mg PO TID PRN SPASMS 09/18/23 09/24/23 History d-mannose 500 mg capsule 1,000 mg PO DAILY 09/18/23 09/24/23 History mirabegron 25 mg tablet,extended 50 mg PO QHS 09/18/23 09/24/23 History release 24 hr (Myrbetriq) buspirone 5 mg tablet 5 mg PO TID PRN anxiety #30 tabs 10/19/24 Unknown Rx citalopram 10 mg tablet 10 mg PO QDAY 10/19/24 Unknown History levonorgestrel (Mirena) 1 device intrauterine ONCE 01/11/25 Unknown History sulfamethoxazole 800 1 tab PO BID #14 tabs 03/08/25 Unknown Rx mg-trimethoprim 160 mg tablet (Bactrim DS) hydrocodone-acetaminophen 5-325mg 1 tab PO Q6H PRN PRN Pain 3 days 03/22/25 Unknown Rx 5mg-325mg #10 TABLETS Allergy/AdvReac Type Severity Reaction Status Date / Time amitriptyline AdvReac Intermediate confusion Verified 03/22/25 16:26 Family History Grandmother Diabetes Breast cancer Grandfather Diabetes [id number] deficiency Other Cancer Coagulation disorder Surgical History History of cystoscopy History of cystoscopy History of cystoscopy delivery delivered Social History Smoking Status: Current every day smoker tobacco type: e-cigarettes Electronic Cigarette Use: with nicotine alcohol intake: never substance use type: does not use caffeine: Yes (rarely) what type of physical activity do you participate in: walking and other details: 20,000 steps per day seatbelt use: always do you feel safe at home: Yes additional social history: Boyfriend-Gerardo Goodson Patient works at [employer] [facility] ED Constitutional Constitutional ED: Denies chills or fever(s) Cardiovascular Cardiovascular: Denies chest pain or palpitations Respiratory/Chest Respiratory/Chest: Denies cough, dyspnea or dyspnea on exertion Gastrointestinal Gastrointestinal: Reports abdominal pain; Denies constipation, diarrhea, melena, nausea or vomiting Genitourinary Genitourinary ED: Denies dysuria, hematuria or urinary frequency Musculoskeletal Musculoskeletal: Denies arthralgias or myalgias Integumentary Denies rash Neurologic Neurologic: Denies weakness Psychiatric Psychiatric: Denies anxiety or depression Endocrine Endocrinology: Denies cold intolerance or heat intolerance Hematologic/Lymphatic Hematologic/Lymphatic: Reports systems reviewed and no addt'l complaints, except as documented EXAM Physical Exam Const Vital Signs: 03/22/25 16:25 03/22/25 16:26 03/22/25 19:27 Temperature 98.5 F Temperature Source Oral Pulse Rate 64 102 H 82 Respiratory Rate 16 18 18 Blood Pressure 138/79 H 114/74 Blood Pressure Mean 98 87 Pulse Ox 99 99 100 Oxygen Delivery Method Room Air Room Air Positive well nourished and well developed General Appearance ED: well developed HEENT Reports moist mucous membranes HEENT Narrative: Head is atraumatic normocephalic. Eyes PERRL and EOMs intact bilaterally Neck no lymphadenopathy and no JVD Chest Wall inspection of chest normal and palpation of chest normal Resp normal respiratory effort and clear to auscultation bilaterally Cardio regular rate, regular rhythm, S1 normal heart sound, S2 normal heart sound and no murmurs GI normal to inspection, nondistended, normoactive bowel sounds, non-distended and no masses; Negative for non-tender or hepatosplenomegaly Palpation: tender LLQ and guarding LLQ (Adnexal region.) Back/Spine no CVA tenderness Neuro oriented x3 Sensorium / Orientation: alert Skin no rashes or lesions noted, no wounds and skin turgor normal MDM MDM MDM Narrative Medical decision making narrative: Differential diagnosis is ovarian torsion, ruptured complex cyst. Appropriate blood work was ordered which included CBC, electrolyte panel UA and test. Ultrasound with flow was ordered. Awaiting formal read by radiologist. Lab Data Attestation: I reviewed the patient's lab results. Lab results narrative: CBC is normal. Comprehensive metabolic panel is normal. Lipase is normal. UA is unremarkable. Serum test was negative. Patient did have nurse protocol orders entered and reason for comprehensive panel. Labs: Laboratory Results - last 24 hr 03/22/25 03/22/25 16:59 17:05 WBC 8.1 RBC 4.31 Hgb 13.2 Hct 38.4 MCV 89.1 MCH 30.6 MCHC 34.4 RDW Std Deviation 39.1 RDW Coeff of Cosme 11.9 Plt Count 262 MPV 11.1 Immature Gran % (Auto) 0.100 Neut % (Auto) 58.5 Lymph % (Auto) 34.8 Harris % (Auto) 4.6 Eos % (Auto) 1.5 Baso % (Auto) 0.5 Absolute Neuts (auto) 4.7 Absolute Lymphs (auto) 2.80 Nucleated RBC % 0 Sodium 140 Potassium 4.6 Chloride 103 Carbon Dioxide 24.6 Anion Gap 12 BUN 14 Creatinine 0.98 Estim Creat Clear Calc 66.99 Est GFR (MDRD) Non-Af 80 BUN/Creatinine Ratio 14.2 Glucose 86 Calcium 9.7 Total Bilirubin 0.41 AST 32 ALT 14 Alkaline Phosphatase 52 Total Protein 7.6 Albumin 4.7 Globulin 2.9 Albumin/Globulin Ratio 1.6 Lipase 30 Serum , Qual NEGATIVE Urine Color Yellow Urine Clarity Sl. Cloudy Urine pH 5.0 Ur Specific [place] 1.020 Urine Protein 30 H Urine Glucose (UA) Normal Urine Ketones Negative Urine Occult Blood 150 H Urine Nitrite Negative Urine Bilirubin Negative Urine Urobilinogen Normal Ur Leukocyte Esterase 100 H Urine RBC 10-25 SEEN Urine WBC 25-50 SEEN Ur Squamous Epith Cells 0-5 SEEN Urine Bacteria 1+ Urine Mucus 1+ Radiography Diagnostic Testing: Clinical Impression(s) from Imaging Studies Transvaginal US 03/22/25 17:43 IMPRESSION: Increased size of the complex left ovarian cyst. Further characterization with MRI is recommended. For uterine device in place. Reading Location: [id number] Pelvic ultrasound was reviewed. Patient had flow noted. Management Discussion w/another healthcare provider: Operations Vice President (Spoke with Dr. Cary Jackson. She was informed patient is comfortable enough and would feel comfortable going home with pain medicine. She would like patient to call office in the morning to be seen within the next 5 to 7 days.) Discharge Plan Triage Chief Complaint: Abd Pain ED Provider: Kvng Chirinos Dx/Rx/DC Orders Clinical Impression: Complex cyst of left ovary, Acute left lower quadrant pain Instructions: ED Ovarian Cyst Prescriptions: New hydrocodone-acetaminophen 5-325 mg tablet 1 tab PO Q6H PRN PRN (Reason: Pain) 3 Days Qty: 10 0RF No Action citalopram 10 mg tablet 10 mg PO QDAY buspirone 5 mg tablet 5 mg PO TID PRN (Reason: anxiety) Qty: 30 4RF Mirena 21 mcg/24hr (up to 8 yrs) 52 mg intrauterine device 1 device intrauterine ONCE Rx Instructions: as a single dose Myrbetriq 25 mg tablet extended release 24 hr 50 mg PO QHS cephalexin 250 mg capsule 250 mg PO QHS cyclobenzaprine 5 mg tablet 5 mg PO TID PRN d-mannose 500 mg capsule 1,000 mg PO DAILY Probiotic Acidophilus 250 million cell capsule 500 mmu cells PO DAILY sulfamethoxazole-trimethoprim [Bactrim DS] 800-160 mg tablet 1 tab PO BID Qty: 14 0RF Primary Care Provider: Francia Lin Referrals: Francia Lin MD [Primary Care Provider] - Cary Jackson MD [Med Staff - Active Staff] - As soon as possible Activity Restrictions/Additional Instructions: 1. Call Dr. Cary Jackson's office in the morning to be seen in the next 5 to 7 days. Tell the nursing secretary you need to be seen either by Dr. Cary Jackson or Dr. Hawkins Print Language: [place] Disposition Disposition: Home, Self Care
[2025-03-22 19:27] VITALS: BP 114/74; PULSE 82; RESP 18; O2SAT 100
[2025-03-22 19:29] LABS: Red Blood Cells-Urine 10-25 SEEN /hpf (0-5); Squamous Epithelial Cells - UA 0-5 SEEN /hpf (5-10)
[2025-03-22 19:31] LABS: Mucous, Urine 1+ /hpf (<or=2+)
[2025-03-22 20:38] VITALS: BP 118/70; PULSE 78; RESP 20; TEMP 36.6; O2SAT 100
== END 2025-03-22 20:41 | disposition home or self-care (01) ==
PROVIDERS: Emergency Provider Emergency Medicine; PCP Internal Medicine; Visit Provider Emergency Medicine
DX: N83.292 Other ovarian cyst, left side (principal); F17.290 Nicotine dependence, other tobacco product, uncomplicated
CPT/HCPCS: 76830; 80053; 81001; 83690; 84703; 85025; 99282; A4216

== ENCOUNTER 2025-04-29 05:45 | Day surgery (SDC) | payer MEDICAID, SELFPAY ==
[2025-04-19 15:38] LABS: Hematocrit 36.8 % (37-47); Hemoglobin 13.1 g/dL (12.0-15.0); Mean Corp Hgb Conc 35.6 g/dL (32-36); Mean Corpuscular Volume 87.2 fL (81-99); Mean Platelet Vol. 10.7 fl (6.2-12.0); Platelet Count 235 K/mm3 (150-450); RBC Distribution Width CV 11.9 % (11.6-14.6); RBC Distribution Width SD 37.9 fl (35.1-43.9); Red Blood Count 4.22 M/mm3 (4.2-5.4); White Blood Count 5.9 K/mm3 (4.4-11.0)
[2025-04-29] VITALS (9 sets, daily range): BP systolic 105–129; BP diastolic 62–87; PULSE 71–99; RESP 12–16; TEMP 36.1–37; O2SAT 100; BMI 20.5
--- OUTSIDE RECORDS SUMMARY | 2025-04-29 05:48 | XMS RPT_ITS | CCD ---
Author Organization [facility] Care Team Providers Care Therapist Occupational Name Role Phone Dr. Jose Feldman Primary Care Provider Dr. Jose Feldman Referring Provider Meaghan TRAFFIC MAINTENANCE OFFICER, TRAFFIC MAINTENANCE OFFICERTitoC Farnaz Attending Provider [phone] Care Physician, No Primary Primary Care Provider Unavailable Care Physician, No Primary Referring Provider Un available Dr. Cary Jackson Attending Provider [phone] SHAKIR NIETO, EMMA Perry Primary Care Physician Unavailable Primary Care Provider UnavailElkin Arreola MD Primary Care Provider ELKIN OLIVA Primary Care Unavailable RADAMES WORTHY Referring Unavailable HAZEL NIETO, DR GRANGER Primary Care Physician [phone] JJ VELÁZQUEZ MD Attending Unavailable EMMA SCHILLING MD Primary Care Unavailable JOSEPH CHENG Attending DR ELKIN Salcido MD Primary Care Unavailable JOSEPH CHENG Attending DR ELKIN Salcido MD Primary Care Unavailable JOSEPH CHENG Attending Simon OLIVA MD, DR GRANGER Primary Care Unavailable JJ VELÁZQUEZ MD Attending Unavailable HAZEL NIETO, DR GRANGER Primary Care Unavailable SANTANA GIORDANO MD Consulting Unavailable CATALINA GUPTA MD Consulting Unavailable JJ VELÁZQUEZ MD Attending Josias OLIVA MD, DR GRANGER Primary Care Unavailable JOSEPH CHENG Attending DR ELKIN Salcido MD Primary Care Unavailable MAYKEL SECURITY CONTROL ASSESSOR-JOSEPH OQUENDO Attending EMMA Wagoner MD Primary Care Unavailable Hazel, Dr. Elkin Langford Primary Care Provider Dr. Elkin Oliva Referring Provider PERFECTO Lovett Attending Provider Dr. Nohelia Munroe Attending Provider Elkin Oliva MD Primary Care Provider Rosales SECURITY CONTROL ASSESSOR.DIRECTOR SALES SUPPORT, Rod Unavailable Yuliana SECURITY CONTROL ASSESSOR.PRESIDENT COLLEGE OR UNIVERSITY, Kimberli Unavailable Yuliana SECURITY CONTROL ASSESSOR.PRESIDENT COLLEGE OR UNIVERSITY, Kimberli Unavailable ELKIN OLIVA Primary Care Unavailable ELKIN OLIVA Attending Unavailable LILIAAMPELKIN MEHTA Primary Care Unavailable ROSALES, ROD Attending Unavailable LILIAAMPELKIN MEHTA Primary Care Unavailable ROSALES, ROD Referring Unavailable TALAMPELKIN MEHTA Primary Care Unavailable SELF Referring Unavailable ROSALES, ROD Attending Unavailable Yuliana SECURITY CONTROL ASSESSOR.PRESIDENT COLLEGE OR UNIVERSITY, Kimberli Unavailable Hazel NIETO, Dr. Elkin Langford Primary Care Provider Hazel NIETO, Dr. Elkin Langford Referring Provider Dr. Nohelia Munroe DO Attending Provider Mahnaz Lovett CNM Attending Provider Mahnaz Lovett CNM Referring Provider Rosales SECURITY CONTROL ASSESSOR.DIRECTOR SALES SUPPORT, Rod Unavailable Hazel NIETO, Dr. Elkin Langford Primary Care Provider Hazel NIETO, Dr. Elkin Langford Referring Provider Shakir NIETO, Dr. Bean Attending Provider Shakir NIETO, Dr. Bean Attending Provider Dr. Kvgn Chirinos MD Emergency Provider Dr. Nohelia Munroe DO Attending Provider Talampas, Elkin D Primary Care Unavailable Emma Schilling Referring Unavailable Emma Schilling Attending Unavailable Talampas, Elkin D Primary Care Unavailable Mahnaz Lovett Attending Unavailable Mahnaz Lovett Referring Unavailable Talampas, Elkin D Primary Care Unavailable Talampas, Elkin D Referring Unavailable Emma Schilling Attending Unavailable Talampas, Elkin D Primary Care Unavailable Emma Schilling Attending Unavailable Talampas, Elkin D Primary Care Unavailable Talampas, Elkin D Referring Unavailable Vande Chivo, Nohelia Attending Unavailabl e Talampas, Elkin D Primary Care Unavailable Talampas, Elkin D Referring Unavailable WyEmma otto Attending Unavailable Talampas, Elkin D Referring Unavailable Mahnaz Lovett Attending Unavailable Talampas, Elkin D Primary Care Unavailable Talampas, Elkin D Primary Care Unavailable Talampas, Elkin D Referring Unavailable Vande Chivo, Nohelia Attending Unavailabl e Talampas, Elkin D Primary Care Unavailable Talampas, Elkin D Referring Unavailable Mahnaz Lovett Attending Unavailable Talampas, Elkin D Primary Care Unavailable Talampas, Elkin D Referring Unavailable Mahnaz Lovett Attending Unavailable Talampas, Elkin D Primary Care Unavailable Nohelia Munroe Referring Unavailabl e Nohelia Munroe Attending Unavailabl e Emma Schilling Consulting Unavailable Talampas, Elkin D Primary Care Unavailable Mahnaz Lovett Referring Unavailable Mahnaz Lovett Attending Unavailable Talampas, Elkin D Primary Care Unavailable Mahnaz Lovett Referring Unavailable Mahnaz Lovett Attending Unavailable Talampas, Elkin D Primary Care Unavailable Mahnaz Lovett Referring Unavailable Mahnaz Lovett Attending Unavailable Talampas, Elkin D Primary Care Unavailable Kvng Chirinos Attending Unavailable Emma Schilling Referring Unavailable MakaylanesEmma squires Attending Unavailable Talampas, Elkin D Primary Care Unavailable Allergies Allergy Classification Reported Allergen(s) Allergy Type Date of Onset Reaction(s) Facility Amitriptyline (1 source) Amitriptyline Drug Allergy 03-07-20 23 Intolerance [facility] Work Phone: (20 sources) Bees; Translations: [BEES] Allergy to substance 09-28-19 16 Swelling, Shortness of Breath [facility] Work Phone: (20 sources) Bee Sting; Translations: [BEE STING] Allergy to substance 01-30-20 11 Hives, Swelling [facility] Work Phone: (20 sources) Amitriptyline; Translations: [amitriptyline] Drug Allergy 03-07-20 23 Dizziness (finding), Headache (finding), Clouded consciousness (finding), Intolerance [facility] Comment on above: dizziness, migraine (2 sources) Bee/Wasp/Ant venom Allergy to substance Weal (disorder), Swelling (finding), Difficulty breathing (finding) [facility] (1 source) Amitriptyline Drug Allergy 04-23-20 [facility] Medications Current Medications Medication Drug Class(es) Dates Sig (Normalized) Sig (Original) acetaminophen 325 mg / HYDROcodone bitartrate 5 mg oral tablet (2 sources) Opioid Agonist Start: 03-22-2025 take 1 tablet by mouth every six hours as needed for pain Hydrocodone-Acetamin ophen 5-325 mg tablet Active 1 {tbl} PO EVERY 6 HOURS NEEDED as needed for Pain 10 3 0 March 22, 2025 Complex cyst of left ovary Acute abdominal pain in left lower quadrant Other ovarian cyst, left side Left lower quadrant pain cyclobenzaprine hydrochloride 5 mg oral tablet (20 sources) Muscle Relaxant Start: 09-18-2023 take 1 tablet by mouth once daily at bedtime cyclobenzaprine (FLEXERIL) 5 mg tablet Take 5 mg by mouth daily at bedtime. 09/18/2023 Active Start: 09-18-2023 End: 03-24-2025 take 1 tablet by mouth three times daily as needed Cyclobenzaprine 5 mg tablet Discontinued 5 mg PO 3 TIMES DAILY NEEDED September 18, 2023 1:00am March 24, 2025 1:27pm SPASMS Start: 01-01-2023 End: 01-06-2024 take 1 tablet [...] A DAY as needed for Muscle Spasm 0 May 21, 2017 12:00am September 29, 2018 4:22pm Comment on above: Take 1 tablet by agustin th twice daily as needed for muscle spasm. D-Mannose (7 sources) Start: 09-18-2023 take 1 capsule by mouth once daily D-Mannose 500 mg capsule Active 1000 mg PO DAILY September 18, 2023 1:00am Start: 09-18-2023 take 1000 mg by mouth once nica ly D-Mannose Active 1000 MG PO DAILY September 18, 2023 12:00am etonogestrel 68 mg drug implant (4 sources) Progestin Start: 09-18-2023 etonogestrel (NEXPLANON) subdermal implant 68 mg 68 mg by SUBDERMAL route one time only. Dr. Manuel Garcia ANIMAL CONTROL SUPERVISOR 09/18/2023 Active ibuprofen 200 mg oral capsule (1 source) Nonsteroidal Anti-inflammatory Drug Start: 03-24-2025 take 1 capsule by mouth every six hours as needed Ibuprofen 200 mg capsule Active 200 mg PO EVERY 6 HOURS as needed March 24, 2025 12:00am lactobacillus acidophilus 1.5 mg oral capsule (7 sources) Start: 09-18-2023 Lactobacillus Acidophilus (Probiotic Acidophilus) 250 million cell capsule Active 500 NMA PO DAILY September 18, 2023 1:00am levonorgestrel 0.002283 mg/hr intrauterine system (6 sources) Progestin, Progestin-containi ng Intrauterine Device Start: 01-11-2025 Levonorgestrel (Mirena) 21 mcg/24hr (up to 8 yrs) 52 mg intrauterine device Active 1 NMA INTRA-UTER ONCE January 11, 2025 12:00am as a single dose methenamine hippurate 1000 mg oral tablet (5 sources) Start: 03-24-2025 Methenamine Hippurate 1 gram tablet Active 1 g PO TWICE A DAY March 24, 2025 12:00am Start: 03-05-2025 End: 03-08-2025 Methenamine Hippurate 1 gram tablet Discontinued 1 g PO TWICE A DAY 180 3 March 05, 2025 12:00am March 08, 2025 8:52am 24 hr mirabegron 50 mg extended release oral tablet (14 sources) beta3-Adrenergic Agonist Start: 11-04-2023 take 100 mg by mouth once daily MYRBETRIQ 50 mg Tb24 Take 100 mg by mouth once daily. 11/04/2023 Active Start: 09-18-2023 End: 03-24-2025 take 1 tablet by mouth every twenty-four hours at bedtime Mirabegron (Myrbetriq) 25 mg tablet extended release 24 hr Discontinued 50 mg PO AT BEDTIME September 18, 2023 1:00am March 24, 2025 1:27pm ondansetron 4 mg disintegrating oral tablet (20 sources) Serotonin-3 Receptor Antagonist Start: 11-08-2022 take 1 tablet by mouth every six hours as needed ondansetron orally disintegrating (ZOFRAN ODT) 4 mg disintegrating tablet Take 1 tablet by mouth every 6 hours as needed for nausea/vomiting. 30 tablet 11/08/2022 Active Comment on above: Take 1 tablet by agustin th every 6 hours as needed for nausea/vomiting. [...] qDay, # 30 tab(s), 1 Refill(s), Pharmacy: [id number], OAB (overactive bladder), 157.5, cm, 03/13/23 10:04:00 EDT, Height, kg, 03/13/23 10:04:00 EDT, Dosing Weight Start Date: 03/13/23 Stop Date: 05/12/23 Status: Ordered rizatriptan 5 mg disintegrating oral tablet (19 sources) Serotonin-1b and Serotonin-1d Receptor Agonist Start: [...] every two hours as needed rizatriptan (MAXALT DIRECTOR OF CULTURE) 5 mg disintegrating tablet Take 1 tablet [...] every two hours as needed rizatriptan (MAXALT DIRECTOR OF CULTURE) 5 mg disintegrating tablet Take 1 tablet by mouth as needed. May repeat in 2 hours if needed. 12 tablet 2 03/07/2023 03/24/2023 Discontinued Comment on above: Take 1 tablet by agustin th as needed. May repeat in 2 hours if needed. Take 1 tablet (5 mg) by mouth as needed. May repeat in 2 hours if needed. sulfamethoxazole 800 mg / trimethoprim 160 mg oral tablet (10 sources) Dihydrofolate Reductase Inhibitor Antibacterial, Sulfonamide Antimicrobial Start: 03-08-2025 Sulfamethoxazole-T rimethoprim (Bactrim Ds) 800-160 mg tablet Active 1 {tbl} PO TWICE A DAY 14 0 March 08, 2025 12:00am Start: 09-26-2023 End: 06-15-2024 Sulfamethoxazole-Trimethopri m 800-160 mg tablet Discontinued 1 {tbl} PO TWICE A DAY 6 3 0 September 26, 2023 1:00am June 15, 2024 10:35am Start: 09-26-2023 take 1 tablet by agustin th twice daily Sulfamethoxazole-Trimethoprim Active 1 T ABLET PO TWICE A DAY 6 3 September 26, 2023 12:00am Vibegron (1 source) Start: 04-26-2022 take 1 tablet by agustin th once daily Vibegron (Gemtesa) 75 mg Tablet Active 75 MG PO DAILY April 26, 2022 12:00am Completed/Discontinued Medications Medication Drug Class(es) Dates Sig (Normalized) Sig (Original) acetaminophen 250 mg / aspirin 250 mg / caffeine 65 mg oral tablet (13 sources) Platelet Aggregation Inhibitor, Nonsteroidal Anti-inflammatory Drug, [...] Q8H as needed for pain 9 3 0 September 26, 2023 June 15, 2024 10:35am Chronic interstitial cystitis Interstitial cystitis (chronic) without hematuria Start: 09-18-2023 End: 06-15-2024 Oxycodone-Acetaminophen 5-32 5 [...] PO Q8H as needed for pain 10 3 0 July 19, 2023 July 25, 2023 2:52pm Pain Pain, unspecified Start: 03-26-2023 End: 03-29-2023 take 1 tablet by mouth every four hours as needed for pain Percocet 5 mg-325 mg oral tablet Dose = 1 tab(s), Oral, q4h, PRN for pain, X 3 day(s), # 5 tab(s), 0 Refill(s), Pharmacy: [id number], Bladder pain, 157.5, cm, 03/26/23 9:41:00 EDT, Height, 47.6, kg, 03/26/23 9:41:00 EDT, Dosing Weight Start Date: 03/26/23 Stop Date: 03/29/23 Status: Ordered Start: 09-06-2022 End: 06-14-2023 Oxycodone-Acetaminophen (Per cocet) 5-325 mg tablet Discontinued 1 {tbl} PO Q8H as needed for pain 10 3 0 September 06, 2022 June 14, 2023 10:45am Ulcer of bladder Other specified disorders of bladder Start: 06-08-2020 End: 06-15-2020 Oxycodone-Acetaminophen 1 TA BLET tablet Discontinued 1 - 2 {tbl} PO EVERY 6 HOURS NEEDED as needed for Pain 15 7 0 June 08, 2020 June 14, 2020 1:00am June 15, 2020 1:02am Other acute postprocedural pain Start: 06-08-2020 End: 06-15-2020 take 1 tablet by mouth every six hours as needed Oxycodone-Acetaminophen Discontinued 1 - 2 TABLET PO EVERY 6 HOURS NEEDED 15 7 June 08, 2020 June 15, 2020 12:02am amitriptyline hydrochloride 10 mg oral tablet (6 sources) Tricyclic Antidepressant Start: 01-29-2023 End: 03-07-2023 take 1 tablet by mouth once daily at bedtime amitriptyline (ELAVIL) 10 mg tablet Take 1 tablet by mouth daily at bedtime. 30 tablet 0 02/28/2023 03/07/2023 Discontinued Comment on above: Take 1 tablet by agustin th daily at bedtime. busPIRone hydrochloride 5 mg oral tablet (8 sources) Start: 10-19-2024 End: 03-24-2025 take 1 tablet by mouth three times daily as needed for anxiety Buspirone 5 mg tablet Discontinued 5 mg PO THREE TIMES A DAY as needed for anxiety 30 4 October 19, 2024 12:00am March 24, 2025 1:26pm cephalexin 250 mg oral capsule (20 sources) Cephalosporin Antibacterial Start: 09-18-2023 End: 03-24-2025 take 1 capsule by mouth at bedtime Cephalexin 250 mg capsule Discontinued 250 mg PO AT BEDTIME September 18, 2023 1:00am March 24, 2025 1:26pm Start: 07-19-2023 End: 07-25-2023 take 1 capsule by mouth every six hours Cephalexin 500 mg capsule Discontinued 500 mg PO EVERY 6 HOURS 28 July 19, 2023 1:00am July 25, 2023 2:52pm Start: 06-14-2023 End: 07-25-2023 take 1 capsule by mouth twice daily Cephalexin 500 mg capsule Discontinued 500 mg PO TWICE A DAY 14 June 14, 2023 1:00am July 25, 2023 2:52pm Urinary tract infection Urinary tract infection, site not specified Take 2 times daily until gone Start: 03-06-2023 End: 03-13-2023 cephalexin 500 mg oral capsu le Dose : 500 mg = 1 cap(s), Oral, TID, X 7 day(s), # 21 cap(s), 0 Refill(s), 03/13/23 3:41:00 PM EDT, Pharmacy: [id number], UTI symptoms, 157.5, [...] Discontinued 500 mg PO EVERY 12 HOURS 14 January 26, 2023 12:00am June 14, 2023 [...] Discontinued 500 mg PO EVERY 6 HOURS 20 5 0 July 13, 2020 1:00am July 17, 2020 1:00am July 18, 2020 1:03am Start: 01-28-2020 End: 04-20-2020 take 1 capsule by mouth every twelve hours Cephalexin (Keflex) 250 mg capsule Discontinued 250 mg PO Q12H January 28, 2020 12:00am April 20, 2020 10:28am Start: 12-18-2019 End: 01-28-2020 take 1 capsule by mouth once daily Cephalexin (Keflex) 500 mg capsule Discontinued 500 mg PO daily 30 6 December 18, 2019 12:00am January 28, 2020 2:49pm take daily after completing course of acute therapy Start: 12-18-2019 End: 12-25-2019 take 1 capsule by mouth three times daily Cephalexin (Keflex) 500 mg capsule Discontinued 500 mg PO THREE TIMES A DAY 21 7 0 December 18, 2019 12:00am December 24, 2019 12:00am December 25, 2019 12:02am space evenly during waking hours Comment on above: TAKE 1 CAPSULE BY MO [facility] EVERY DAY AT BEDTIME Take 1 capsule by mo [facility] four times daily for 10 days. citalopram 10 mg oral tablet (12 sources) Serotonin Reuptake Inhibitor Start: 09-04-2024 End: 09-04-2025 take 1 tablet by mouth once daily Citalopram 10 mg tablet Discontinued 10 mg PO daily October 19, 2024 12:00am March 24, 2025 1:27pm Start: 12-23-2015 End: 11-08-2022 take 1 tablet by mouth once daily citalopram (CELEXA) 20 mg tablet Take 1 tablet by mouth once daily. 30 tablet 13 12/23/2015 11/08/2022 Discontinued Comment on above: [facility] d[facility] sodium 50 mg oral capsule (14 sources) Start: 04-26-2022 End: 06-14-2023 Docusate Sodium 50 mg Capsule Discontinued 50 mg PO NEEDED as needed for Constipation April 26, 2022 12:00am June 14, 2023 10:45am 168 hr ethinyl estradiol 0.32613 mg/hr / norelgestromin 0.59337 mg/hr transdermal system (18 sources) Progestin, Estrogen Start: 05-10-2023 End: 06-14-2023 Norelgestromin-Ethin.Est radiol (Xulane) 150-35 mcg/24 hr patch weekly Discontinued 1 NMA TD Q7D 3 0 May 10, 2023 11:33am June 14, 2023 11:01am Abnormal uterine bleeding Abnormal uterine and vaginal bleeding, unspecified Start: 05-10-2023 End: 06-14-2023 Norelgestromin-Ethin.Estradi ol (Xulane) 150-35 mcg/24 hr patch weekly Active 1 PATCH TD Q7D 3 June 14, 2023 10:00am Start: 04-05-2022 Norelgestromin -Ethin.Estradiol (Xulane) 150-35 mcg/24 hr patch weekly Active 1 PATCH TD Q7D 3 April 05, 2022 12:00am Etonogestrel (Nexplanon) 68 mg implant (7 sources) Start: 09-18-2023 End: 01-11-2025 Etonogestrel (Nexplanon) 68 mg implant Discontinued 1 NMA subdermal DAILY September 18, 2023 1:00am January 11, 2025 2:05pm Start: 09-18-2023 Etonogestrel ( Nexplanon) 68 mg implant Active 1 IMPLANT subdermal DAILY September 18, 2023 12:00am ferrous sulfate 159 mg extended release oral tablet (17 sources) Start: 06-06-2020 End: 09-28-2021 Ferrous Sulfate, [...] injection (Toradol) metroNIDAZOLE 500 mg oral tablet (17 sources) Nitroimidazole Antimicrobial Start: 11-16-2021 End: 04-05-2022 take 1 tablet by mouth twice daily Metronidazole 500 MG tablet Discontinued 500 mg PO TWICE A DAY November 16, 2021 12:00am April 05, 2022 2:53pm naproxen 500 mg oral tablet (20 sources) Nonsteroidal Anti-inflammatory Drug Start: 06-14-2023 End: 07-25-2023 take 1 tablet by mouth once daily [...] HOURS NEEDED as needed for MILD PAIN 30 June 08, 2020 1:00am July 13, 2020 4:09pm Start: 05-21-2017 End: 09-29-2018 take 1 tablet by mouth twice daily as needed Naproxen 500 MG tablet Discontinued 500 mg PO TWICE DAILY NEEDED May 21, 2017 12:00am September 29, 2018 4:22pm Comment on above: Take 1 tablet by agustin th twice daily with meals. Take with food. As needed for headache NIFEdipine 30 mg osmotic 24 hr extended release oral tablet (17 sources) Dihydropyridine Calcium Channel Laurie Start: End: take 1 tablet by mouth once daily Nifedipine 30 MG tablet extended release 24hr Discontinued 30 mg PO DAILY 30 June 09, 2020 1:00am September 28, 2021 2:34pm nitrofurantoin, macrocrystals 25 mg / nitrofurantoin, monohydrate 75 mg oral capsule (20 sources) Nitrofuran Antibacterial Start: 024 End: 025 take 1 capsule by mouth twice daily at mealtime Nitrofurantoin Monohyd/M-Cryst (Macrobid) 100 mg capsule Discontinued 100 mg PO TWICE A DAY June 15, 2024 1:00am March 05, 2025 11:17am interstitial cystisis must administer with a meal/food Start: 04-10-2022 End: 04-17-2022 take 1 capsule by mouth twice daily at mealtime Nitrofurantoin Monohyd/M-Cryst (Macrobid) 100 mg capsule Discontinued 100 mg PO TWICE A DAY 14 7 0 April 10, 2022 4:06pm April 16, 2022 12:00am April 17, 2022 12:04am must administer with a meal/food Start: 09-28-2021 End: 10-05-2021 take 1 capsule by mouth twice daily at mealtime Nitrofurantoin Monohyd/M-Cryst (Macrobid) 100 mg capsule Discontinued 100 mg PO TWICE A DAY 14 7 0 September 28, 2021 1:00am October 04, 2021 1:00am October 05, 2021 1:03am must administer with a meal/food Start: 11-06-2019 End: 12-18-2019 take 1 capsule by mouth twice daily at mealtime Nitrofurantoin Monohyd/M-Cryst (Macrobid) 100 mg capsule Discontinued 100 mg PO TWICE A DAY 14 0 November 06, 2019 12:00am December 18, 2019 2:20pm must administer with a meal/food phenazopyridine hydrochloride 200 mg oral tablet (16 sources) Start: 05-03-2022 End: 06-14-2023 take 1 tablet by mouth three times daily as needed for muscle spasms Phenazopyridine (Pyridium) 200 mg tablet Discontinued 200 mg PO 3 TIMES DAILY NEEDED as needed for Bladder Spasms 30 7 0 May 03, 2022 12:00am June 14, 2023 10:45am Comment on above: Take 1 tablet by agustin th three times daily as needed for pain (urinary burning. Turns urine orange.) for up to 2 days. Pnv #48-Hhbo-Ywwrs Acid-Omega3 30 mg iron-10 mg iron-1 mg capsule (6 sources) Start: 11-05-2019 End: 07-21-2020 Pnv #90-Gqes-Hxykr Acid-Omega3 30 mg iron-10 mg iron-1 mg capsule Discontinued 1 NMA PO DAILY November 05, 2019 12:00am July 21, 2020 10:21am Start: 11-05-2019 End: 07-21-2020 Pnv #65-Hrob-Yrdya Acid-Omeg a3 30 mg iron-10 mg iron-1 mg capsule Discontinued 1 NMA PO DAILY November 05, 2019 12:00am July 21, 2020 10:21am vitamin#30 30 mg iron-10 mg iron-folic acid 1 mg-omg3 capsule (11 sources) Start: 11-05-2019 End: 07-21-2020 take 1 capsule [...] mg tablet Discontinued 50 mg PO DAILY 02 12June 22, 2020 1:00am September 28, 2021 2:34pm Comment on above: Take 1 tablet by agustin once daily. for PTSD vibegron (GEMTESA) 75 mg tablet (20 sources) Start: 04-26-2022 End: 01-06-2024 vibegron (GEMTESA) 75 mg tablet Start: 04-26-2022 vibegron (GEMT NANCY) 75 mg tablet zonisamide 25 mg oral capsule (8 sources) Anti-epileptic Agent Start: 03-20-2023 End: 01-06-2024 take 1 capsule by mouth once daily zonisamide (ZONEGRAN) 25 mg capsule Take 1 capsule by mouth once daily. 30 capsule 0 03/20/2023 01/06/2024 Discontinued Comment on above: Take 1 capsule by mo [facility] once daily. Problems Active Problems Problem Classification Problem Date Documented Da te Episodic/Chronic Abdominal pain (20 sources) Pelvic and perineal pain; Translations: [Pelvic and perineal pain] Onset: 2 11-08-2022 Episodic Anxiety disorders (20 sources) Posttraumatic stress disorder; Translations: [Post-traumatic stress disorder, unspecified] Onset: 3 Chronic Contraceptive and procreative management (15 sources) Encounter for contraceptive management, unspecified; Translations: [Unspecified contraceptive management] 07-25-2023 Episodic Essential hypertension (17 sources) Hypertensive disorder; Translations: [Essential (primary) hypertension] 06-10-2020 Chronic Gastrointestinal hemorrhage (8 sources) Gastrointestinal hemorrhage; Translations: [Gastrointestinal hemorrhage, unspecified] 08-28-2023 Episodic Genitourinary symptoms and ill-defined conditions (20 sources) Incontinence; Translations: [Mixed incontinence] Onset: 3 Chronic Comment on above: urogyn consult Genitourinary symptoms and ill-defined conditions (20 sources) History of urinary tract infection; Translations: [Personal history of urinary (tract) infections] Onset: 2 11-08-2022 Episodic Headache; including migraine (7 sources) Migraine with aura; Translations: [Migraine with aura, not intractable, without status migrainosus] Onset: 4 Chronic Headache; including migraine (6 sources) Acute headache; Translations: [Acute nonintractable headache, unspecified headache type] Episodic Headache; including migraine (2 sources) Headache; including migraine; Translations: [Chronic daily headache] Onset: 3 Hypertension complicating ; childbirth and the puerperium (17 sources) -induced hypertension; Translations: [Gestational [-induced] hypertension without significant proteinuria, unspecified trimester] 09-28-2021 Episodic Inflammatory diseases of female pelvic organs (17 sources) Bacterial vaginosis; Translations: [Acute vaginitis] 11-24-2021 Episodic Menstrual disorders (3 sources) Irregular periods; Translations: [Irregular menstruation, unspecified] Onset: 5 09-04-2024 Chronic Mood disorders (9 sources) Major depression in partial remission; Translations: [Major depressive disorder, single episode, in partial remission] 02-06-2024 Chronic Other complications of (11 sources) Nausea and vomiting; Translations: [Vomiting of , unspecified] 05-30-2020 Episodic Other complications of (6 sources) Vomiting of , unspecified; Translations: [Nausea and vomiting during ] 01-24-2019 Episodic Comment on above: rx phenergan Other connective tissue disease (2 sources) Spasm; Translations: [Other muscle spasm] 04-28-2023 Episodic Other diseases of bladder and urethra (7 sources) Disorder of bladder; Translations: [Other specified disorders of bladder] 05-03-2022 Chronic Other diseases of bladder and urethra (19 sources) Other specified disorders of bladder; Translations: [...] Chronic Other diseases of bladder and urethra (11 sources) Spasm of bladder; Translations: [Other specified disorders of bladder] 06-14-2023 Chronic Other diseases of bladder and urethra (6 sources) Lesion of bladder; Translations: [Other specified disorders [...] conditions (not mental disorders or infectious disease) (11 sources) Cancer cervix screening status; Translations: [Encounter for screening for malignant neoplasm of cervix] 06-14-2023 Episodic Ovarian cyst (16 sources) Cyst of ovary; Translations: [Unspecified ovarian cyst, unspecified side] Onset: 5 08-28-2023 Episodic Comment on above: repeat US in 01-10 wee ks Residual codes; unclassified (1 source) Treatment not available; Translations: [Procedure and treatment not carried out for other reasons] Episodic Residual codes; unclassified (1 source) Procedure not done; Translations: [Procedure and treatment not carried out for other reasons] Episodic Residual codes; unclassified (10 sources) Pain; Translations: [Pain, unspecified] 07-27-2023 Episodic Residual codes; unclassified (1 source) Tobacco use and exposure - finding; Translations: [Tobacco use] 11-02-2024 Episodic Spondylosis; intervertebral disc disorders; other back problems (17 sources) Torticollis; Translations: [Torticollis] 05-22-2017 Episodic Unclassified (1 source) NO SHOW 01-14-2024 Unclassified (3 sources) Chronic bladder pain Unclassified (3 sources) N32.89 - Other specified disorders of bladder,R10.2 - Pelvic and perineal pain,R39.82 - Chronic bladder pain Urinary tract infections (20 sources) Chronic interstitial cystitis; Translations: [Interstitial cystitis (chronic) without hematuria] Onset: 0 Chronic Urinary tract infections (20 sources) Eosinophilic cystitis; Translations: [Other cystitis without hematuria] Onset: 3 Episodic Past or Other Problems Problem Classification Problem Date Documented Date Episodic/Chronic Cancer of cervix (14 sources) Low grade squamous intraepithelial lesion on cervical Papanicolaou smear; Translations: [Low grade squamous intraepithelial lesion on cytologic smear of cervix (LGSIL)] Onset: 07-14-2024 06-20-2023 Episodic Comment on above: LEONOR 1, repeat PAP in 06/28: ASCUS, neg HPV. Rpt 1 year (06/2025). Immunizations and screening for infectious disease (20 sources) Patient encounter status; Translations: [Encounter for screening for infections with a predominantly sexual mode of transmission] Onset: 06-15-2024 06-14-2023 Episodic Comment on above: No PA needed with in surance type 10/23/24Mirena Nonmalignant breast conditions (7 sources) Breast tenderness; Translations: [Mastodynia] Onset: 07-21-2024 06-15-2024 Episodic Other connective tissue disease (1 source) Other muscle spasm; Translations: [Muscle spasm] Onset: 01-06-2024 Episodic Residual codes; unclassified (20 sources) History of headache; Translations: [Personal history of other specified conditions] Onset: 11-08-2022 Episodic Results Test Name Value Interpretation Reference Range Facility MR/Ryan 04-23-2025 MR/TRESSA [facility] [address] [place] [address], [address] [place] [address] OFFICE VISIT Date of Service: 04/23/25 MR#: [id number] Acct: [id number] Name: RIDDHI MEDLEY Rep #: [id number] : 1995 Provider: Dr. Emma Gilbert i, MD Age/Sex: 30/F [place] [facility] [place]: Signed Intake Vital Signs 03/24/25 13:22 04/23/25 12:50 Height 5 ft 2 in 5 ft 2 in Weight: 116 lb BMI 21.2 BP 114/84 H Pulse 90 Intake Visit Reasons: Urine C S sign consent Chief Complaint: preoperative urine and consent Ward Aide Required: No Accompanied by: self Is patient in pain?: Yes (pelvic pain and pressure) Pain scale (1-10): 2 Allergies amitriptyline Adverse Reaction (Intermediate, Verified 04/23/25 12:49) confusion Medications ???Medication ???Instructions ???Recorded ???Confirmed ???Type Lactobacillus acidophilus 250 500 mmu cells PO DAILY 09/18/23 History million cell capsule (Probiotic Acidophilus) d-mannose 500 mg capsule 1,000 mg PO DAILY 09/18/23 5 History levonorgestrel (Mirena) 1 device intrauterine ONCE 5 04/23/25 History ibuprofen 200 mg capsule 200 mg PO Q6H PRN pain 03/24/25 History cephalexin 250 mg capsule 250 mg PO QHS #90 caps 04/02/25 Rx cyclobenzaprine 5 mg tablet 5 mg PO QHS PRN muscle spasm #60 0 04/19/25 04/23/25 Rx tabs mirabegron 50 mg tablet,extended 50 mg PO QDAY 04/23/25 04/23/25 Hi story release 24 hr (Myrbetriq) Nurse's Note: blood in her urine today per patient with very mild pelvic pressure and pain PFSH Medical History Anxiety Restless legs PONV (postoperative nausea and vomiting) Leg cramps Smoker Chronic bladder pain Depression Lesion of cervix Low grade squamous intraepithelial dysplasia Syncope Gastric reflux Constipation History of GI bleed PTSD (post-traumatic stress disorder) Marijuana use Anemia Vapes nicotine containing substance Bladder ulcer Dietary restriction Migraine Gestational hypertension History of depression History of anxiety Surgical History History of cystoscopy History of cystoscopy History of cystoscopy delivery delivered Family History Grandmother Diabetes Breast cancer Grandfather Diabetes Fepwp-3-ahkzbtklblh deficiency Other Cancer Coagulation disorder Social History Smoking Status: Current every day smoker tobacco type: e-cigarettes Electronic Cigarette Use: with nicotine alcohol intake: never substance use type: does not use caffeine: Yes (rarely) what type of physical activity do you participate in: walking and other details: 20,000 steps per day seatbelt use: always do you feel safe at home: Yes additional social history: Boyfriend-Gerardo Goodson Patient works at [employer] Female Reproductive History Menstrual Ab spontaneous: 1 HPI HPI Urology Chief Complaint: preoperative urine and consent Details: RIDDHI MEDLEY, is a 30 F. The patient is here for preoperative history and physical prior to cystoscopy with possible biopsy and fulguration. There are no new symptoms since the last visit. She is taking D-mannose 1000mg daily, we discussed making this BID. She is also taking Myrbetriq 50mg and nightly cephalexin. She is seeing blood and having pressure today. The procedure, recovery and expectations were explained. The risks, benefits and alternatives were discussed, including but not limited to, the risks of anesthesia, bleeding, infection, injury, pain and the need for further intervention. We have discussed the risk of exposure to and/or potential harm posed by the COVID-19 virus with having a surgery/procedure at this time. A joint decision was made at this time to proceed with the scheduled surgery/procedure as indicated on the consent form. ROS Const Constitutional: No chills, fatigue, fever(s), headache(s), night sweats, weakness, weight change, abnormal sleep pattern or change in appetite Eyes Eyes: No change in vision ENT ENT: No headache(s) or dry mouth Resp Respiratory: No cough, chest congestion, shortness of breath or wheezing Cardio Cardiology: Positive for other (No chest pain.); No shortness of breath, irregular heart rhythm or lightheadedness Gastro GI: Positive for other (No nausea.); No abdominal pain, change in bowel habits, constipation, diarrhea or vomiting Musc Musculoskeletal: No abnormal gait Skin Skin: No yellowing of the eye, lesions, itchy eyes, rash or skin ulcer Neuro Neurology: No abnormal gait, confusion, dizziness, weakness, headache(s) or memory loss Psych Psy (more content not included)... Normal [facility] CBC-Complete Blood Cnt No Di ffon 04-19-2025 Erythrocyte distribution width (RBC) [Ratio] 11.9 % Normal 11.6-14.6 [facility] Comment on above: Performed By: #### L 100.0500, BTSPAT ####[facility] [address] [place], [address] Hematocrit (Bld) [Volume fraction] 36.8 % Low 37-47 [facility] Comment on above: Performed By: #### L 100.0500, BTSPAT ####[facility] [address] [place], [address] Hemoglobin (Bld) [Mass/Vol] 13.1 g/dL Normal 12.0-15.0 [facility] Comment on above: Performed By: #### L 100.0500, BTSPAT ####[facility] [address] [place], [address] MCH (RBC) [Entitic mass] 31.0 pg Normal 27.0-32.0 [facility] Comment on above: Performed By: #### L 100.0500, BTSPAT ####[facility] [address] [place], [address] MCHC (RBC) [Mass/Vol] 35.6 g/dL Normal 32-36 [facility] Comment on above: Performed By: #### L 100.0500, BTSPAT ####[facility] [address] [place], [address] MCV (RBC) [Entitic vol] 87.2 fL Normal 81-99 [facility] Comment on above: Performed By: #### L 100.0500, BTSPAT ####[facility] [address] [place], [address] Platelet mean volume (Bld) [Entitic vol] 10.7 fL Normal 6.2-12.0 [facility] Comment on above: Performed By: #### L 100.0500, BTSPAT ####[facility] [address] [place], [address] Platelets (Bld) [#/Vol] 235 10*3/uL Normal 150-450 [facility] Comment on above: Performed By: #### L 100.0500, BTSPAT ####[facility] [address] [place], [address] RBC (Bld) [#/Vol] 4.22 10*6/uL Normal 4.2-5.4 [facility] Comment on above: Performed By: #### L 100.0500, BTSPAT ####[facility] [address] [place], [address] RDW SD 37.9 fl Normal 35.1-43.9 [facility] Comment on above: Performed By: #### L 100.0500, BTSPAT ####[facility] [address] [place], [address] WBC (Bld) [#/Vol] 5.9 10*3/uL Normal 4.4-11.0 [facility] Comment on above: Performed By: #### L 100.0500, BTSPAT ####[facility] [address] [place], [address] Type AND Screen - PAT ONLYon 04-19-2025 Ab SCREEN GEL Negative Normal [facility] Comment on above: Order Comment: Surge ry Date: 04/29/25Reason for Laboratory Test [id number] CYSTECTOMY, BLADDER FULGURATION Performed By: #### L 100.0500, BTSPAT ####[facility] [address] [place], [address] Office Visit Reporton 2024 Office Visit Report [facility] [address] [place] [address] OFFICE VISIT Date of Service: 04/13/25 MR#: [id number] Acct: [id number] Patient: RIDDHI MEDLEY Rep #: [id number] : 1995 Provider: Dr. Emma Gilbert i, MD Age/Sex: 30/F Location: [facility] [place] Status: Signed Intake Vital Signs 03/24/25 13:22 Height 5 ft 2 in Intake Visit Reasons: Urine drop off per HKW Chief Complaint: Patient is here for urinary tract infection symptoms. Allergies amitriptyline Adverse Reaction (Intermediate, Verified 04/15/25 08:47) confusion Have you fallen in the past year?: No Nurse's Note: Patient is here for a urine drop off per HKW for painful urination and sensation of pelvic fullness. Assessment and Plan Assessment and Plan Orders: Orders POC UA Auto w/o Microscopy 04/13/25 N39.0 - Urinary tract infection, site not specified Clinical Quality Measures Falls Risk Screening/Assistive Devices Have you fallen in the past year?: No 04/15/25 1303 Date Emma Marquis Signature: Date (if applicable) CC: Normal [facility] [employer] Office Visit Reporton 03-24-2025 University President Office Visit Report [facility] [address], [address] [place] [address] OFFICE VISIT Date of Service: 03/24/25 MR#: [id number] Acct: [id number] Name: RIDDHI MEDLEY SENG Rep #: [id number] : 1995 Provider: Dr. Nohelia Chou DO Age/Sex: 30/F Location[facility] [place] Status: Signed Intake Vital Signs 03/22/25 16:26 03/24/25 13:19 03/24/25 13:22 Height 5 ft 2 in 5 ft 2 in 5 ft 2 in Weight: 116 lb 1 oz BMI 21.2 BP 126/75 H Intake Visit Reasons: ER FU per JV (see note) Ward Aide Required: No Allergies amitriptyline Adverse Reaction (Intermediate, Verified 03/24/25 13:19) confusion Medications ???Medication ???Instructions ???Recorded ???Confirmed ???Type Lactobacillus acidophilus 250 500 mmu cells PO DAILY 09/18/23 History million cell capsule (Probiotic Acidophilus) d-mannose 500 mg capsule 1,000 mg PO DAILY 09/18/23 5 History levonorgestrel (Mirena) 1 device intrauterine ONCE 5 03/24/25 History sulfamethoxazole 800 1 tab PO BID #14 tabs 03/08/25 Rx mg-trimethoprim 160 mg tablet (Bactrim DS) hydrocodone-acetaminophen 5-325mg 1 tab PO Q6H PRN PRN Pain 3 days 03/22/25 03/24/25 Rx 5mg-325mg #10 TABLETS ibuprofen 200 mg capsule 200 mg PO Q6H PRN 03/24/25 5 History methenamine hippurate 1 gram tablet 1 g PO BID 03/24/25 03/24/25 Hi story Post menopausal: No Patient : No : No PFSH Medical History Chronic bladder pain Depression Lesion of cervix Low grade squamous intraepithelial dysplasia Syncope Gastric reflux Constipation History of GI bleed PTSD (post-traumatic stress disorder) Marijuana use Anemia Easy bruising Vapes nicotine containing substance Bladder ulcer Dietary restriction Migraine Gestational hypertension History of depression History of anxiety Surgical History History of cystoscopy History of cystoscopy History of cystoscopy delivery delivered Family History Grandmother Diabetes Breast cancer Grandfather Diabetes Cpmor-0-gskglvnqyll deficiency Other Cancer Coagulation disorder Social History Smoking Status: Current every day smoker tobacco type: e-cigarettes Electronic Cigarette Use: with nicotine alcohol intake: never substance use type: does not use caffeine: Yes (rarely) what type of physical activity do you participate in: walking and other details: 20,000 steps per day seatbelt use: always do you feel safe at home: Yes additional social history: Boyfriend-Gerardo Goodson Patient works at [employer] per (see note) Details: The patient is a 30-year-old female presenting with an ovarian cyst that has increased in size and is causing discomfort. The cyst was initially measured at 4 cm x 2.5 cm x 2.4 cm on March 01 via ultrasound and has since grown to 5.3 cm x 4.3 cm x 2.2 cm. The patient reports persistent pain, even while sitting, and the cyst's growth suggests it may be located in the fallopian tube rather than the ovary. The cyst is suspected to be a serous cystadenoma, which is a common type of ovarian cyst that can continue to grow. The patient has not scheduled surgery yet, but surgical intervention is being considered due to the cyst's growth and associated pain. The surgical plan includes the possibility of a left ovarian cystectomy, salpingectomy, and potentially an oophorectomy if necessary. Attestation: Documentation on this patient encounter was supported using ambient scribe technology/ voice AI technology. The patient consented to recording for the purpose of documenting the encounter. Provider reviewed content of the generated note prior to signature. History 2 Elective abortions Hx Para 1 Spontaneous abortions 1 Hx # Term Pregnancies Ectopic pregnancies Hx # Pregnancies Multiple births # of living children 1 Past Pregnancies Del. Date Name GA/Weeks Outcome Route Bth Weight Infant Gen Labor Lgth Anesthesia Del Locatn Provider FOB 06/06/20 Beck 38 live - full term Male epidural [facility] Delivery Date: 06/06/20 Last Updated [...] as documented Exam Const General: cooperative, healthy appea (more content not included)... Normal [facility] Absolute lymphocyte countOrd ered By: Kvng Chirinos on 03-22-2025 Lymphocytes Auto (Unsp spec) [#/Vol] 2.80 10*3/uL 0.83-4.51 [facility] Absolute neutrophil countOrd ered By: Kvngjose Chirinos on 03-22-2025 Neutrophils (Bld) [#/Vol] 4.7 10*3/uL 2.0-7.7 [facility] Anion gap in Serum or Plasma Ordered By: Kvng Chirinos on 03-22-2025 Anion gap [Moles/Vol] 12 mmol/L 5-15 [facility] Automated lymphocyte count a s percentage of total leukocytesOrdered By: Kvng Chirinos on 03-22-2025 Lymphocytes/100 WBC Auto (Unsp spec) 34.8 % 19-41 [facility] BUN/creatinine ratioOrdered By: Kvng Chirinos on 03-22-2025 Urea nitrogen/Creatinine [Mass ratio] 14.2 mg/mg 10-20 [facility] Basophil percentageOrdered B y: Kvng Chirinos on 03-22-2025 Basophils/100 WBC (Bld) 0.5 % 0-1 [facility] Bilirubin Test strip Ql (U)O rdered By: ED PROVIDER on 03-22-2025 Bilirubin Ql (U) Negative Negative [facility] Bilirubin, totalOrdered By: Kvng Chirinos on 03-22-2025 Bilirubin [Mass/Vol] 0.41 mg/dL 0.00-1.30 [facility] CBC W/Diff, Automatedon 03-05 Absolute Lymph 2.80 X10 3/uL Normal 0.83-4.51 [facility] Comment on above: Performed By: #### L 700.6800, L501.2450, L100.0100, L500.4050 #### [facility] [address] [place], [address] Absolute Neut 4.7 X10 3/uL Normal 2.0-7.7 [facility] Comment on above: Performed By: #### L 700.6800, L501.2450, L100.0100, L500.4050 #### [facility] [address] [place], [address] Basophils/100 WBC (Bld) 0.5 % Normal 0-1 [facility] Comment on above: Performed By: #### L 700.6800, L501.2450, L100.0100, L500.4050 #### [facility] [address] [place], [address] Eosinophils/100 WBC (Bld) 1.5 % Normal 0-5 [facility] Comment on above: Performed By: #### L 700.6800, L501.2450, L100.0100, L500.4050 #### [facility] [address] [place], [address] Erythrocyte distribution width (RBC) [Ratio] 11.9 % Normal 11.6-14.6 [facility] Comment on above: Performed By: #### L 700.6800, L501.2450, L100.0100, L500.4050 #### [facility] [address] [place], [address] Hematocrit (Bld) [Volume fraction] 38.4 % Normal 37-47 [facility] Comment on above: Performed By: #### L 700.6800, L501.2450, L100.0100, L500.4050 #### [facility] [address] [place], [address] Hemoglobin (Bld) [Mass/Vol] 13.2 g/dL Normal 12.0-15.0 [facility] Comment on above: Performed By: #### L 700.6800, L501.2450, L100.0100, L500.4050 #### [facility] [address] [place], [address] IG% 0.100 Normal 0.0-0.9 [facility] Comment on above: Result Comment: IG% - Immature Granulocytes (promyelocytes, myelocytes and metamyelocytes) > 1% indicates that a LEFT SHIFT is Present. Performed By: #### L 700.6800, L501.2450, L100.0100, L500.4050 #### [facility] [address] [place], [address] Lymphocytes/100 WBC (Bld) 34.8 % Normal 19-41 [facility] Comment on above: Performed By: #### L 700.6800, L501.2450, L100.0100, L500.4050 #### [facility] [address] [place], [address] MCH (RBC) [Entitic mass] 30.6 pg Normal 27.0-32.0 [facility] Comment on above: Performed By: #### L 700.6800, L501.2450, L100.0100, L500.4050 #### [facility] [address] [place], [address] MCHC (RBC) [Mass/Vol] 34.4 g/dL Normal 32-36 [facility] Comment on above: Performed By: #### L 700.6800, L501.2450, L100.0100, L500.4050 #### [facility] [address] [place], [address] MCV (RBC) [Entitic vol] 89.1 fL Normal 81-99 [facility] Comment on above: Performed By: #### L 700.6800, L501.2450, L100.0100, L500.4050 #### [facility] [address] [place], [address] Monocytes/100 WBC (Bld) 4.6 % Normal 0-10 [facility] Comment on above: Performed By: #### L 700.6800, L501.2450, L100.0100, L500.4050 #### [facility] [address] [place], [address] Neutrophils/100 WBC (Bld) 58.5 % Normal 47-70 [facility] Comment on above: Performed By: #### L 700.6800, L501.2450, L100.0100, L500.4050 #### [facility] [address] [place], [address] Nucleated RBC (Bld) [#/Vol] 0 10*3/uL Normal 0-5 [facility] Comment on above: Performed By: #### L 700.6800, L501.2450, L100.0100, L500.4050 #### [facility] [address] [place], [address] Platelet mean volume (Bld) [Entitic vol] 11.1 fL Normal 6.2-12.0 [facility] Comment on above: Performed By: #### L 700.6800, L501.2450, L100.0100, L500.4050 #### [facility] [address] [place], [address] Platelets (Bld) [#/Vol] 262 10*3/uL Normal 150-450 [facility] Comment on above: Performed By: #### L 700.6800, L501.2450, L100.0100, L500.4050 #### [facility] [address] [place], [address] RBC (Bld) [#/Vol] 4.31 10*6/uL Normal 4.2-5.4 [facility] Comment on above: Performed By: #### L 700.6800, L501.2450, L100.0100, L500.4050 #### [facility] [address] [place], [address] RDW SD 39.1 fl Normal 35.1-43.9 [facility] Comment on above: Performed By: #### L 700.6800, L501.2450, L100.0100, L500.4050 #### [facility] [address] [place], [address] WBC (Bld) [#/Vol] 8.1 10*3/uL Normal 4.4-11.0 [facility] Comment on above: Performed By: #### L 700.6800, L501.2450, L100.0100, L500.4050 #### [facility] [address] [place], [address] Carbon dioxide, total [Moles /volume] in Central venous bloodOrdered By: Kvng Chirinos on 03-22-2025 CO2 [Moles/Vol] 24.6 mmol/L 21.0-32.0 [facility] Chloride assayOrdered By: Breezy Chirinos on 03-22-2025 Chloride [Moles/Vol] 103 mmol/L 98-108 [facility] Comprehensive Metabolic Prof ilon 03-22-2025 Albumin [Mass/Vol] 4.7 g/dL Normal 3.5-5.0 [facility] Comment on above: Performed By: #### L 700.6800, L501.2450, L100.0100, L500.4050 #### [facility] [address] [place], [address] Albumin/Globulin [Mass ratio] 1.6 {ratio} Normal 0.9-2.4 [facility] Comment on above: Performed By: #### L 700.6800, L501.2450, L100.0100, L500.4050 #### [facility] [address] [place], [address] ALK PHOS 52 U/L Normal 35-104 [facility] Comment on above: Performed By: #### L 700.6800, L501.2450, L100.0100, L500.4050 #### [facility] [address] [place], [address] ALT [Catalytic activity/Vol] 14 U/L Normal <=34 [facility] Comment on above: Result Comment: Hemo lysis present, Results??could be affected. ?? Performed By: #### L 700.6800, L501.2450, L100.0100, L500.4050 #### [facility] [address] [place], [address] AST [Catalytic activity/Vol] 32 U/L Normal <=31 [facility] Comment on above: Result Comment: Hemo lysis present, Results??could be affected. ?? Performed By: #### L 700.6800, L501.2450, L100.0100, L500.4050 #### [facility] [address] [place], [address] Bilirubin [Mass/Vol] 0.41 mg/dL Normal 0.00-1.30 [facility] Comment on above: Performed By: #### L 700.6800, L501.2450, L100.0100, L500.4050 #### [facility] [address] [place], [address] BUN/CRE 14.2 RATIO Normal 10-20 [facility] Comment on above: Performed By: #### L 700.6800, L501.2450, L100.0100, L500.4050 #### [facility] [address] [place], [address] Calcium [Mass/Vol] 9.7 mg/dL Normal 7.6-11.0 [facility] Comment on above: Performed By: #### L 700.6800, L501.2450, L100.0100, L500.4050 #### [facility] [address] [place], [address] Chloride [Moles/Vol] 103 mmol/L Normal 98-108 [facility] Comment on above: Performed By: #### L 700.6800, L501.2450, L100.0100, L500.4050 #### [facility] [address] [place], [address] CO2 [Moles/Vol] 24.6 mmol/L Normal 21.0-32.0 [facility] Comment on above: Performed By: #### L 700.6800, L501.2450, L100.0100, L500.4050 #### [facility] [address] [place], [address] Creatinine [Mass/Vol] 0.98 mg/dL Normal 0.70-1.20 [facility] Comment on above: Performed By: #### L 700.6800, L501.2450, L100.0100, L500.4050 #### [facility] [address] [place], [address] ECRCL 66.99 ml/min Normal 50-250 [facility] Comment on above: Performed By: #### L 700.6800, L501.2450, L100.0100, L500.4050 #### [facility] [address] [place], [address] GAP 12 Normal 5-15 [facility] Comment on above: Performed By: #### L 700.6800, L501.2450, L100.0100, L500.4050 #### [facility] [address] [place], [address] GFR/1.73 sq M.predicted among non-blacks MDRD (S/P/Bld) [Vol rate/Area] 80 mL/min/{1.73_m2} Normal >60 [facility] Comment on above: Result Comment: mL/m in/1.73m2 CKD-EPI Creatinine Equation (2020) Performed By: #### L 700.6800, L501.2450, L100.0100, L500.4050 #### [facility] [address] [place], [address] Globulin (S) [Mass/Vol] 2.9 g/dL Normal 2.2-4.2 [facility] Comment on above: Performed By: #### L 700.6800, L501.2450, L100.0100, L500.4050 #### [facility] [address] [place], [address] Glucose [Mass/Vol] 86 mg/dL Normal 70-99 [facility] Comment on above: Performed By: #### L 700.6800, L501.2450, L100.0100, L500.4050 #### [facility] [address] [place], [address] Potassium [Moles/Vol] 4.6 mmol/L Normal 3.3-5.1 [facility] Comment on above: Result Comment: Hemo lysis present, Results??could be affected. ?? Performed By: #### L 700.6800, L501.2450, L100.0100, L500.4050 #### [facility] [address] [place], [address] Sodium [Moles/Vol] 140 mmol/L Normal 133-145 [facility] Comment on above: Performed By: #### L 700.6800, L501.2450, L100.0100, L500.4050 #### [facility] [address] [place], [address] T PROT 7.6 g/dL Normal 5.9-8.4 [facility] Comment on above: Performed By: #### L 700.6800, L501.2450, L100.0100, L500.4050 #### [facility] [address] [place], [address] Urea nitrogen [Mass/Vol] 14 mg/dL Normal 4-19 [facility] Comment on above: Performed By: #### L 700.6800, L501.2450, L100.0100, L500.4050 #### [facility] [address] [place], [address] Emergency Department Summary on 03-22-2025 Emergency Department Summary [facility] Medical Records Department [address] [place] [address] Emergency Department Summary 03/22/25 MR#: [id number] Acct: [id number] Name: RIDDHI MEDLEY Rep #: [id number] : 1995 30 From: Kvng Chirinos MD PCP: Dr. Elkin Oliva MD Status:REG ER Location: ED HPI History of Present Illness Chief Complaint: Abd Pain Detail of Chief Complaint: Left lower quadrant adnexal pain Informant: patient Onset/Context/Timing Onset: Today Context: Sudden Onset Timing: Continuous Quality: Pain Location: Left adnexa/left lower quadrant Current Severity: Moderate Maximum Severity: Severe Worsened by: Movement and pants buckled Relieved by: Nothing Associated Symptoms Associated Symptoms: No other symptoms Narrative Narrative: Patient is a 30-year-old woman. She had an ultrasound on March 01 that revealed her uterus to be 8.5 x 5.5 x 4.8 cm with a volume of 115.26 mL. The endometrium was thickened to 4.6 mm. Right ovary is 2.7 x 2.9 x 1.9 cm with a volume of 7.48 mL. Left ovary is 4.4 x 4.2 x 2.7 cm with a volume of 25.79. The interpretation per radiologist revealed a persistent complex cyst with focal thickening and septation within the cyst. Patient presents because abrupt onset of left lower quadrant/adnexal pain. Movement causes her pain. She had unbuckle her jeans because of discomfort. She still has discomfort but is less. She denies dysuria, frequency, urgency or hematuria. Last menses is unknown. She had a Mirena placed a couple of months ago. She is sexually active. Prior similar symptoms: Yes Recent Illness/Hospitalization: No PFSH PFSH Medical History Chronic bladder pain Depression Lesion of cervix Low grade squamous intraepithelial dysplasia Syncope Gastric reflux Constipation History of GI bleed PTSD (post-traumatic stress disorder) Marijuana use Anemia Easy bruising Vapes nicotine containing substance Bladder ulcer Dietary restriction Migraine Gestational hypertension History of depression History of anxiety Home Medications ???Medication ???Instructions ???Recorded ???Last Taken ???Type Lactobacillus acidophilus 250 500 mmu cells PO DAILY 09/18/23 History million cell capsule (Probiotic Acidophilus) cephalexin 250 mg capsule 250 mg PO QHS 09/18/23 09/24/23 Hi story cyclobenzaprine 5 mg tablet 5 mg PO TID PRN SPASMS 09/18/23 History d-mannose 500 mg capsule 1,000 mg PO DAILY 09/18/23 4 History mirabegron 25 mg tablet,extended 50 mg PO QHS 09/18/23 09/24/23 His tory release 24 hr (Myrbetriq) buspirone 5 mg tablet 5 mg PO TID PRN anxiety #30 tabs 0 10/19/24 Unknown Rx citalopram 10 mg tablet 10 mg PO QDAY 10/19/24 Unknown His tory levonorgestrel (Mirena) 1 device intrauterine ONCE 5 Unknown History sulfamethoxazole 800 1 tab PO BID #14 tabs 03/08/25 Unk nown Rx mg-trimethoprim 160 mg tablet (Bactrim DS) hydrocodone-acetaminophen 5-325mg 1 tab PO Q6H PRN PRN Pain 3 days 03/22/25 Unknown Rx 5mg-325mg #10 TABLETS Allergy/AdvReac Type Severity Reaction Status Date / Time amitriptyline AdvReac Intermediate confusion Verified 03/22/25 16:26 Family History Grandmother Diabetes Breast cancer Grandfather Diabetes Uydjw-5-otmsebjiobm deficiency Other Cancer Coagulation disorder Surgical History History of cystoscopy History of cystoscopy History of cystoscopy delivery delivered Social History Smoking Status: Current every day smoker tobacco type: e-cigarettes Electronic Cigarette Use: with nicotine alcohol intake: never substance use type: does not use caffeine: Yes (rarely) what type of physical activity do you participate in: walking and other details: 20,000 steps per day seatbelt use: always do you feel safe at home: Yes additional social history: Boyfrienprimitivo-Gerardo Goodson Patient works at [employer] ED Constitutional Constitutional ED: Denies chills or fever(s) Cardiovascular Cardiovascular: Denies chest pain or palpitations Respiratory/Chest Respiratory/Chest: Denies cough, dyspnea or dyspnea on exertion Gastrointestinal Gastrointestinal: Reports abdominal pain; Denies constipation, diarrhea, melena, nausea or vomiting Genitourinary Genitourinary ED: Denies dysuria, hematuria or urinary frequency Musculoskeletal Musculoskeletal: Denies arthralgias or myalgias Integumentary Denies rash Neurologic Neurologic: Denies weakness Psychiatric Psychiatric: Denies anxiety or depression Endocrine Endocrinology: Denies cold intolerance or heat intolerance Hematologic/ (more content not included)... Normal [facility] Eosinophil percentageOrdered By: Kvng Chirinos on 03-22-2025 Eosinophils/100 WBC (Bld) 1.5 % 0-5 [facility] Erythrocyte distribution wid th ratioOrdered By: Kvng Chirinos on 03-22-2025 Erythrocyte distribution width (RBC) [Ratio] 11.9 % 11.6-14.6 [facility] Erythrocyte distribution wid th standard deviationOrdered By: Kvng Chirinos on 03-22-2025 Erythrocyte distribution width (RBC) [Ratio] 39.1 fl 35.1-43.9 [facility] Glomerular filtration rate ( GFR) estimation/1.73 sq m using serum, plasma, or whole bOrdered By: Kvng Chirinos on 03-22-2025 GFR/1.73 sq M.predicted among non-blacks MDRD (S/P/Bld) [Vol rate/Area] 80 mL/min/{1.73_m2} >60 [facility] Comment on above: mL/min/1.73m2 CKD-EP I Creatinine Equation (2020) Hematocrit Auto (Bld) [Volum e fraction]Ordered By: Kvng Chirinos on 03-22-2025 Hematocrit (Bld) [Volume fraction] 38.4 % 37-47 [facility] Hemoglobin measurementOrdere d By: Kvng Chirinos on 03-22-2025 Hemoglobin (Bld) [Mass/Vol] 13.2 g/dL 12.0-15.0 [facility] Immature granulocytes/100 WB C Auto (Bld)Ordered By: Kvng Chirinos on 03-22-2025 Immature granulocytes/100 WBC (Bld) 0.100 % 0.0-0.9 [facility] Comment on above: IG% - Immature Granu locytes (promyelocytes, myelocytes and metamyelocytes) > 1% indicates that a LEFT SHIFT is Present. Ketones Test strip Ql (U)Ord ered By: ED PROVIDER on 03-22-2025 Ketones Ql (U) Negative Negative [facility] - Chemistry and C hemistry - challengeOrdered By: Kvng Chirinos on 03-22-2025 AST [Catalytic activity/Vol] 32 U/L <32 [facility] Comment on above: Hemolysis present, R esults could be affected. Lipaseon 03-22-2025 Lipase [Catalytic activity/Vol] 30 U/L Normal 13-75 [facility] Comment on above: Result Comment: Guillermina morataya note: LIPASE revised reference range effective 22. New Lipase methodology. Expected to produce lower values than the previous assay method. NEW Reference Range: 13 - 75 U/L Performed By: #### L 700.6800, L501.2450, L100.0100, L500.4050 #### [facility] [address] [place], [address] Lipase measurementOrdered By : Kvng Chirinos on 03-22-2025 Lipase [Catalytic activity/Vol] 30 U/L 13-75 [facility] Comment on above: Please note:LIPASE r evised reference range effective 22. New Lipase methodology. Expected to produce lower values than the previous assay method. NEW Reference Range: 13 - 75 U/L MCV (mean corpuscular volume ) determinationOrdered By: Kvng Chirinos on 03-22-2025 MCV (RBC) [Entitic vol] 89.1 fL 81-99 [facility] Mean corpuscular hemoglobin (MCH) determinationOrdered By: Kvngjose Chirinos on 03-22-2025 MCH (RBC) [Entitic mass] 30.6 pg 27.0-32.0 [facility] Mean corpuscular hemoglobin concentration (MCHC) determinationOrdered By: Kvng Chirinos on 03-22-2025 MCHC (RBC) [Mass/Vol] 34.4 g/dL 32-36 [facility] Mean platelet volume determi nationOrdered By: Kvng Chirinos on 03-22-2025 Platelet mean volume (Bld) [Entitic vol] 11.1 fL 6.2-12.0 [facility] Microscopic analysis of urin e for red blood cells (RBC)Ordered By: Kvng Chirinos on 03-22-2025 Microscopic analysis of urine for red blood cells (RBC) 10-25 SEEN /hpf 0-5 [facility] Monocyte percentageOrdered B y: Kvng Chirinos on 03-22-2025 Monocytes/100 WBC (Bld) 4.6 % 0-10 [facility] Mucus LM Ql (Urine sed)Order ed By: Kvng Chirinos on 03-22-2025 Mucus Ql (Urine sed) 1+ /hpf [facility] Neutrophil percentageOrdered By: Kvng Chirinos on 03-22-2025 Neutrophils/100 WBC (Bld) 58.5 % 47-70 [facility] Nitrite Test strip Ql (U)Ord ered By: ED PROVIDER on 03-22-2025 Nitrite Ql (U) Negative Negative [facility] Nucleated red blood cell per centageOrdered By: Kvng Chirinos on 03-22-2025 Nucleated RBC/100 WBC (Bld) [Ratio] 0 % 0-5 [facility] Platelet countOrdered By: Breezy Chirinos on 03-22-2025 Platelets (Bld) [#/Vol] 262 10*3/uL 150-450 [facility] Potassium measurement (mass/ volume)Ordered By: Kvng Chirinos on 03-22-2025 Potassium (Unsp spec) [Mass/Vol] 4.6 mmol/L 3.3-5.1 [facility] Comment on above: Hemolysis present, R esults could be affected. ,Serum,hCG Quali.on 03-22-2025 HCG, SERUM QUAL Negative Normal [facility] Comment on above: Performed By: #### L 700.6800, L501.2450, L100.0100, L500.4050 ####[facility] [address] [place], [address] Protein Test strip Ql (U)Ord ered By: ED PROVIDER on 03-22-2025 Protein Ql (U) 30 mg/dl High Negative [facility] RBC Auto (Bld) [#/Vol]Ordere d By: Kvng Chirinos on 03-22-2025 RBC (Bld) [#/Vol] 4.31 10*6/uL 4.2-5.4 [facility] Serum beta-hCG test, qualita tiveOrdered By: Kvng Chirinos on 03-22-2025 Beta HCG ( test) Ql Negative [facility] Serum creatinine measurement (mass/volume)Ordered By: Kvng Cihrinos on 03-22-2025 Creatinine [Mass/Vol] 0.98 mg/dL 0.70-1.20 [facility] Serum globulin measurementOr dered By: Kvng Chirinos on 03-22-2025 Globulin (S) [Mass/Vol] 2.9 g/dL 2.2-4.2 [facility] Serum glucose measurement (m ass/volume)Ordered By: Kvng Chirinos on 03-22-2025 Glucose [Mass/Vol] 86 mg/dL 70-99 [facility] Serum or plasma alanine diaz otransferase (ALT) measurementOrdered By: Kvngjose Chirinos on 03-22-2025 ALT [Catalytic activity/Vol] 14 U/L <35 [facility] Comment on above: Hemolysis present, R esults could be affected. Serum or plasma albumin tono urement (mass/volume)Ordered By: Kvng Chirinos on 03-22-2025 Albumin [Mass/Vol] 4.7 g/dL 3.5-5.0 [facility] Serum or plasma albumin/glob ulin mass ratioOrdered By: Kvngjose Chirinos 03-22-2025 Albumin/Globulin [Mass ratio] 1.6 {ratio} 0.9-2.4 [facility] Serum or plasma alkaline munir sphatase measurementOrdered By: Kvngjose Chirinos 03-22-2025 ALP [Catalytic activity/Vol] 52 U/L 35-104 [facility] Serum or plasma calcium tono urement (mass/volume)Ordered By: Kvng Chirinos on 03-22-2025 Calcium [Mass/Vol] 9.7 mg/dL 7.6-11.0 [facility] Serum or plasma urea nitroge n measurement (mass/volume)Ordered By: Kvng Chirinos 03-22-2025 Urea nitrogen [Mass/Vol] 14 mg/dL 4-19 [facility] Sodium levelOrdered By: Kvng Chirinos on 03-22-2025 Sodium [Moles/Vol] 140 mmol/L 133-145 [facility] Squamous epithelial cells de tection in urine sediment by light microscopyOrdered By: Kvng Chirinos on 03-22-2025 Epithelial cells.squamous LM Ql (Urine sed) 0-5 SEEN /hpf 5-10 [facility] Total proteinOrdered By: Kvng Chirinos on 03-22-2025 Protein [Mass/Vol] 7.6 g/dL 5.9-8.4 [facility] Transvaginal Non-on 03-22-2025 Transvaginal Non- [facility] Imaging Services [address] [place], [place] [address] Transvaginal Non- MR#: [id number] Acct: [id number] Name: RIDDHI MEDLEY Rep #: [id number] : 1995 F 30 From: Caesar Sky MD PCP: Dr. Elkin Oliva MD Status: [facility] Study: Transvaginal Non- Date of Exam: Exam# [id number] Ordering Dr: Kvng Chirinos MD PROCEDURE: TRANSVAGINAL NON- 03/22/2025 REASON FOR EXAM: ACUTE LEFT ADNEXAL PAIN, HISTORY COMPLEX 5 CM CYST TECHNIQUE: TRANSVAGINAL NON- COMPARISON: 02/2025. FINDINGS: Measurements: Uterus measures 9.1 x 6.2 x 4.7 cm. Anteverted. No fibroids. Endometrial thickness of 4 mm. Intrauterine device is present in satisfactory position. Right ovary measures 2.5 x 1.9 x 1.7 cm. Left ovary measures 6.0 x 4.9 x 2.6 cm. Persistent left ovarian 5.3 x 4.3 x 2.2 cm cyst, previously 4.0 x 2.1 x 2.4 cm. Preserved vascular flow of the bilateral ovaries. No free fluid in the cul-de-sac. US/Transvaginal Non- IMPRESSION: Increased size of the complex left ovarian cyst. Further characterization with MRI is recommended. For uterine device in place. Reading Location: [id number] CC: Dr. Elkin Oliva MD; Dr. Kvng Chirinos MD [employer] [place] [employer]: Signed Normal [facility] Urinalysis, Completeon 03-22 BACTERIA 1+ /hpf Normal None Seen [facility] Comment on above: Order Comment: CHRISTINE CTOR TO SPECIFY Performed By: #### L 400.0001 ####[facility] [address] [place], [address] Mucus Ql (Urine sed) 1+ /hpf Normal [facility] Comment on above: Order Comment: CHRISTINE CTOR TO SPECIFY Performed By: #### L 400.0001 ####[facility] [address] [place], [address] EPI,SQUAMOUS 0-5 SEEN Normal 5-10 [facility] Comment on above: Order Comment: CHRISTINE CTOR TO SPECIFY Performed By: #### L 400.0001 ####[facility] [address] [place], [address] RBC 10-25 SEEN Normal 0-5 [facility] Comment on above: Order Comment: CHRISTINE CTOR TO SPECIFY Performed By: #### L 400.0001 ####[facility] [address] [place], [address] WBC 25-50 SEEN Normal 0-5 [facility] Comment on above: Order Comment: CHRISTINE CTOR TO SPECIFY Performed By: #### L 400.0001 ####[facility] [address] [place], [address] Urine clarityOrdered By: ED PROVIDER on 03-22-2025 Clarity (U) Sl. Cloudy Clear [facility] Urine color determinationOrd ered By: ED PROVIDER on 03-22-2025 Color (U) Yellow Yellow [facility] Urine glucose detectionOrder ed By: ED PROVIDER on 03-22-2025 Glucose Ql (U) Normal mg/dl Normal [facility] Urine leukocyte esterase det ection by dipstickOrdered By: ED PROVIDER on 03-22-2025 Leukocyte esterase Test strip Ql (U) 100 /ul High Negative [facility] Urine pHOrdered By: ED PROVI BERNABE on 03-22-2025 pH (U) 5.0 [pH] 5.0 - 8.0 [facility] Urine sediment bacteria coun t by microscopy (number/high power field)Ordered By: Kvng Chirinos on 03-22-2025 Bacteria LM.HPF (Urine sed) [#/Area] 1 /[HPF] None Seen [facility] Urine specific gravity measu rementOrdered By: ED PROVIDER on 03-22-2025 Specific gravity (U) [Rel density] 1.020 1.002-1.030 [facility] Urine urobilinogen measureme ntOrdered By: ED PROVIDER on 03-22-2025 Urobilinogen Ql (U) Normal mg/dl Normal [facility] White blood cell (WBC) count Ordered By: Kvng Chirinos on 03-22-2025 WBC (Bld) [#/Vol] 8.1 10*3/uL 4.4-11.0 [facility] White blood cell countOrdere d By: Kvng Chirinos on 03-22-2025 White blood cell count 25-50 SEEN /hpf 0-5 [facility] - Chemistry and C hemistry - challengeOrdered By: Emma Schilling on 03-05-2025 Bilirubin Ql (U) Negative [facility] Glucose Ql (U) Negative [facility] Ketones Ql (U) Negative [facility] pH (U) 5 [pH] [facility] Specific gravity (U) [Rel density] 1.025 [facility] Urobilinogen (U) [Mass/Vol] Negative [facility] - Hematology and Cell countsOrdered By: Emma Schilling on 03-05-2025 Hemoglobin Ql (U) Small [facility] - Specimen inform ationOrdered By: Emma Schilling on 03-05-2025 Clarity (U) Hazy [facility] Color (U) YELLOW [facility] - UrinalysisOrder ed By: Emma Schilling on 03-05-2025 Nitrite Ql (U) Negative [facility] Protein Ql (U) Negative [facility] /Ryna 03-05-2025 /[facility] [address], [address] [place] [address] OFFICE VISIT Date of Service: 03/05/25 MR#: [id number] Acct: [id number] Name: RIDDHI MEDLEY Rep #: [id number] : 1995 Provider: Dr. Emma Gilbert i, MD Age/Sex: 30/F Location: [facility] Status: Signed Intake Vital Signs 01/11/25 14:02 03/04/25 14:38 03/05/25 10:59 Height 5 ft 2 in 5 ft 2 in 5 ft 2 in Weight: 116 lb 6 oz 105 lb BMI 21.2 19.2 BP 128/83 H 120/78 Temp 89.3 F L Temp Source Temporal Intake Visit Reasons: MED F/U - UTI, HEMATURIA Chief Complaint: Patient is here for urinary tract infection symptoms. Ward Aide Required: No Is patient in pain?: Yes Allergies amitriptyline Adverse Reaction (Intermediate, Verified 01/11/25 14:05) confusion Is last menstrual period known: Yes Last menstrual period: 02/06/25 Post menopausal: No Patient : No Have you fallen in the past year?: No PFSH Medical History Chronic bladder pain Depression Lesion of cervix Low grade squamous intraepithelial dysplasia Syncope Gastric reflux Constipation History of GI bleed PTSD (post-traumatic stress disorder) Marijuana use Anemia Easy bruising Vapes nicotine containing substance Bladder ulcer Dietary restriction Migraine Gestational hypertension History of depression History of anxiety Surgical History History of cystoscopy History of cystoscopy History of cystoscopy delivery delivered Family History Grandmother Diabetes Breast cancer Grandfather Diabetes Ucdww-2-etgjljtkpmt deficiency Other Cancer Coagulation disorder Social History Smoking Status: Current every day smoker tobacco type: e-cigarettes Electronic Cigarette Use: with nicotine alcohol intake: never substance use type: does not use caffeine: Yes (rarely) what type of physical activity do you participate in: walking and other details: 20,000 steps per day seatbelt use: always do you feel safe at home: Yes additional social history: Boyfriend-Jamirsamina Goodson Patient works at [employer]ro[employer] History Menstrual Date of last menstrual period: 02/06/25 Ab spontaneous: 1 HPI HPI Chief Complaint: Patient is here for urinary tract infection symptoms. Details: RIDDHI MEDLEY, is a 30 F who presents to the office today for possible urinary tract infection. She has been having gross hematuria, pelvic pain, dysuria, intermittent urinary stream and constipation. She has been struggling with all of this for the last 6 weeks. She did have a urine culture done through urgent care that was negative, but the UA was positive. She was treated with Keflex 500mg and this minimally helped with only the pelvic pain. She is having blood in her underwear, not sure if it is from the IUD or her urine. She showed me a picture, looks like bloody mucous likely vaginal, as the toilet water was absolutely clear. She has had recent ultrasound done showed IUD in good position and an ovarian cyst. She has a surgical consult scheduled with at the end of this month. We discussed proceeding with cystoscopy at that time with possible bladder biopsy and fulguration. She is taking D-mannose, probiotics, Myrbetriq 50mg daily. She is not taking antibiotics, flexeril and her antidepressants for the last few months due to issues with insurance. Results POC Urinalysis w/Micro Office Urine Color YELLOW Last Edit by Cyndi Dick on 03/05/25 11:15 Office Urine Clarity Hazy Last Edit by Cyndi Dick on 03/05/25 11:15 Office Urine Glucose Negative Last Edit by Cyndi Dick on 03/05/25 11:15 Office Urine Ketones Negative Last Edit by Cyndi Dick on 03/05/25 11:15 Office Urine Bilirubin Negative Last Edit by Cyndi Dick on 03/05/25 11:15 Office Urine Urobilinogen Negative Last Edit by Cyndi Dick on 03/05/25 11:15 Off Ur Spec [place] 1.025 Last Edit by Cyndi Dick on 03/05/25 11:15 Office Urine pH 5 Last Edit by Cyndi Dick on 03/05/25 11:15 Office Urine Protein Negative Last Edit by Cyndi Dick on 03/05/25 11:15 Office Urine Blood Small Last Edit by Cyndi Dick on 03/05/25 11:15 Office Urine Blood Hemolyzed NA Last Edit by Cyndi Dick on 03/05/25 11:15 Office Urine Nitrate Negative Last Edit by Cyndi Dick on 03/05/25 11:15 Off Ur Leukocytes Positive Last Edit by Cyndi Dick on 03/05/25 11:15 Off Ur WBC Microscopic Last Edit by Cyndi Dick on 03/05/25 11:15 Off Ur RBC Microscopic Last Edit by Cyndi Dick on 03/05/25 11:15 Off Ur Bacteria Microscopic Last Edit by Cyndi Dick on 03/05/25 11:15 Coding (more content not included)... Normal [facility] No Panel InformationOrdered By: Emma Schilling on 03-05-2025 Urine Leukocytes Positive [facility] Urine Non-Hemolyzed Blood [facility] Transvaginal Non-on 03-01-2025 Transvaginal Non- [facility] Imaging Services [address] [place], [place] [address] Transvaginal Non- MR#: [id number] Acct: [id number] Name: RIDDHI MEDLEY Rep #: [id number] : 1995 F 30 From: Nas infante MD PCP: Dr. Elkin Oliva MD Status: REG CLI Study: Transvaginal Non- Date of Exam: Exam# [id number] Ordering Dr: Mahnaz Lovett [facility] PROCEDURE: TRANSVAGINAL NON- 03/01/2025 REASON FOR EXAM: OVARIAN CYST TECHNIQUE: TRANSVAGINAL NON- COMPARISON: Prior study dated January 13, 2025. FINDINGS: Measurements: Uterus: 8.5 cm x 5.5 cm x 4.8 cm with a volume of 115.26 mL Endometrial Thickness: 4.6 mm Right Ovary: 2.7 cm x 2.9 cm x 1.9 cm with a volume of 7.48 mL. Left Ovary: 4.4 cm x 4.2 cm x 2.7 cm with a volume of 25.79 mL. Uterus: Heterogeneous echotexture of the myometrium suggestive of fibroid change although no focal fibroid is seen. IUD is seen within the fundal portion of the endometrium. Endometrium: Unremarkable. Right ovary: Normal size and echotexture. Left ovary: Persistent complex cyst in the left ovary measuring 4 cm x 2.5 cm 2.4 cm. Focal thickening and septation within the cyst. Other: US/Transvaginal Non- IMPRESSION: Stable appearance of the complex cyst in the left ovary. The remainder of the examination is unchanged. An IUD is seen within the fundal portion of the endometrium. Reading Location: [id number] CC: PERFECTO Lovett; Dr. Elkin Oliva MD [place] Hand: Signed Normal [facility] Transvaginal Non-on 01-13-2025 Transvaginal Non- [facility] Imaging Services [address] [place] [address] Transvaginal Non- MR#: [id number] Acct: [id number] Name: RIDDHI MEDLEY Rep #: [id number] : 1995 F 29 From: Nas infante MD PCP: Dr. Elkin Oliva MD Status: REG CLI Study: Transvaginal Non- Date of Exam: Exam# [id number] Ordering Dr: Mahnaz Lovett CNM PROCEDURE: TRANSVAGINAL NON- 01/13/2025 REASON FOR EXAM: PELVIC PAIN TECHNIQUE: Transvaginal pelvic ultrasound COMPARISON: Prior study dated April 18, 2022. FINDINGS: Measurements: Uterus: 9.3 cm x 5.7 cm x 4.7 cm with a volume of 128.74 mL Endometrial Thickness: 6.1 mm. It is hyperechoic. Small amount of fluid is seen within the endometrial canal. Nabothian cysts. An IUD is seen within the fundal portion of the endometrium. Right Ovary: 3 cm x 2.9 cm x 2.5 cm with a volume of 10.85 mL. Left Ovary: 4.6 cm x 3.4 cm x 2.4 cm with a volume of 19.9 mL. Uterus: Normal size, myometrial echotexture, and contour.. IUD is seen within the fundal portion of the endometrium. Endometrium: Unremarkable. Right ovary: Small follicles are seen within the ovary. Left ovary: There is a 4.1 cm x 3.1 cm 2.5 cm complex cyst in the left ovary with the several daughter cysts. There is also evidence of a 6 mm x 5 mm x 6 mm echogenic nodule along its periphery. Clinical correlation and sonographic follow-up recommended. Other: US/Transvaginal Non- IMPRESSION: Complex cyst in the left ovary as described. Clinical and sonographic follow-up recommended. Reading Location: [id number] CC: PERFECTO Lovett; Dr. Elkin Oliva MD [place] Hand: Signed Normal [facility] University President Office Visit Reporton 01-11-2025 University President Office Visit Report [facility] [address], [address] [place] [address] OFFICE VISIT Date of Service: 01/11/25 MR#: [id number] Acct: [id number] Name: RIDDHI MEDLEY Rep #: [id number] : 1995 Provider: PERFECTO Anderson ams Age/Sex: 29/F Location: [facility] Status: Signed Intake Vital Signs 11/27/24 13:40 01/11/25 14:02 Height 5 ft 2 in 5 ft 2 in Weight: 119 lb 116 lb 6 oz BMI 21.7 21.2 BP 124/80 H 128/83 H Intake Visit Reasons: IUD check Ward Aide Required: No Is patient in pain?: Yes [...] menopausal: No Patient : No : No [facility] Medical History Lesion of cervix Low grade [...] History Grandmother Diabetes Breast cancer Grandfather Diabetes Beyef-5-hqmtztbvkrp deficiency Social History Smoking Status: Current every [...] social history: Boyfriend-Gerardo Goodson Patient works at [employer] [facility] [employer] IUD check Details: RIDDHI MEDLEY is a [...] Weight Infant Gen Labor Lgth Anesthesia Del Locatn Provider [...] complete se (more content not included)... Normal [facility] University President Office Visit Reporton 11-27-2024 University President Office Visit Report [facility] [address], [address] [place] [address] OFFICE VISIT Date of Service: 11/27/24 MR#: [id number] Acct: [id number] Name: RIDDHI MEDLEY SENG Rep #: [id number] : 1995 Provider: PERFECTO Anderson ams Age/Sex: 29/F Location: [facility] Status: Signed Intake Vital Signs 10/19/24 08:38 10/19/24 09:20 11/27/24 13:40 Height 5 ft 2 in 5 ft 2 in Weight: 115 lb 4 oz 119 lb BMI 21.0 21.7 BP 114/81 H 124/80 H Intake Visit Reasons: Nexplanon Removal/Mirena Insertion Chief Complaint: Nexplanon Removal/Mirena Insertion Ward Aide Required: No Is patient in pain?: No [...] History Grandmother Diabetes Breast cancer Grandfather Diabetes Ruifk-0-utcmrkmhuiz deficiency Social History Smoking Status: Current every [...] social history: Boyfriend-Gerardo Goodson Patient works at [employer] History 2 Elective abortions Hx Para 1 Spontaneous abortions 1 Hx # Term Pregnancies Ectopic pregnancies Hx # Pregnancies Multiple births # of living children 1 Past Pregnancies Del. Date Name GA/Weeks Outcome Route Bth Weight Infant Gen Labor Lgth Anesthesia Del Locatn Provider FOB 06/06/20 Beck 38 live - full term Male epidural [facility] Delivery Date: 06/06/20 Last Updated by: Linda DOYLE; cord prolapse STAT [facility] HPI Nexplanon Removal/Mirena [...] Exam Const Ge (more content not included)... [facility] (INTMWS ) ----- RIDDHI MEDLEY ([id number]) 1995 F Date Time Provider Department 11/02/24 11:00 AM ROD ROSALES During your visit today, we recorded the following information about you: Pulse Respiration Blood pressure Weight 88/minute 16/minute 110/72 52 kg Rod Rosales APRN.DIRECTOR SALES SUPPORT 11/02/2024 11:44 AM Signed SUBJECTIVE: Pneumococcal Vaccine(1 [...] clots. She is followed by Dr. Jackson ANIMAL CONTROL SUPERVISOR. She reports that she has a Nexplanon [...] 2-year laura of current control use. 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 Dr. Manuel Garcia ANIMAL CONTROL SUPERVISOR rizatriptan 5 mg disintegrating tablet Take 1 [...] experiencing hormonal (more content not included)... Normal [facility] University President Office Visit Reporton 10-19-2024 University President Office Visit Report [facility] [address], [address] [place] [address] OFFICE VISIT Date of Service: 10/19/24 MR#: [id number] Acct: [id number] Name: RIDDHI MEDLEY Rep #: [id number] : 1995 Provider: Dr. Nohelia Chou DO Age/Sex: 29/F Location: [facility] Status: Signed Intake Vital Signs 06/15/24 09:38 10/19/24 08:38 Height 5 ft 2 in 5 ft 2 in Weight: 115 lb 4 oz BMI 21.0 BP 114/81 H Intake Visit Reasons: Hormonal issues/Missed period Ward Aide Required: No Is patient in pain?: No [...] History Grandmother Diabetes Breast cancer Grandfather Diabetes Dsbwf-0-lojpqwgealp deficiency Social History Smoking Status: Current every [...] social history: Boyfriend-Gerardo Goodson Patient works at [employer] [employer] Hormonal issues/Missed period Details: RIDDHI MEDLEY is [...] Bth Weight Gen Labor Lgth Anesthesia Del Alfonsoatchrystal Provider FOB 06/06/20 Beck 38 live - full term Male epidural [facility] Delivery Date: 06/06/20 Last Updated [...] Medications: New (more content not included)... Normal [facility] CREATININE [facility] 09-05-2024 Creatinine [Mass/Vol] 0.84 mg/dL 0.58 - 0.96 mg/dL [facility] GFR/1.73 sq M.predicted among non-blacks MDRD (S/P/Bld) [Vol rate/Area] 97 mL/min/{1.73_m2} - PINF [facility] Comment on above: Estimated Glomerular Filtration Rate [...] Interpretation and review of laboratory results Normal [facility] DHEA-S [facility] 09-05-2024 DHEA-S [Mass/Vol] 166.7 ug/dL 98.8 - 340 .0 ug/dL [facility] Comment on above: Reference ranges are age and gender specific. For additional information, reference range tables can be found in the laboratory test directory. The normal values are based on the following source: Dehydroepiandrosterone sulfate (DHEA S) [package insert V 17.0 Mauritian]. [facility], [place], [place]: March 2013. Interpretation and review of laboratory results Normal [facility] FOLLICLE STIMULATING HORMONE on 09-05-2024 Follitropin Qn 2.5 m[IU]/mL See comment mIU/mL [facility] Comment on above: Reference range: Follicular: 3.5-12.5 mIU/mL Ovulation: 4.7-21.5 mIU/mL Luteal: 1.7-7.7 mIU/mL Postmenopausal: 25.8-134.8 mIU/mL LUTEINIZING HORMONEon 2024 Lutropin Qn 2.2 m[IU]/mL See comment mIU/mL [facility] Comment on above: Reference range: Follicular: 2.4-12.6 mIU/mL Midcycle: 14.0-95.6 mIU/mL Luteal: 1.0-11.4 mIU/mL Post Hoffmeister: 7.7-58.5 mIU/mL Lipid 1995 panelon Cholesterol [Mass/Vol] 164 mg/dL NINF - 200 mg/dL [facility] Comment on above: <200 mg/dL, Desirabl e 200-239 mg/dL, Borderline high >239 mg/dL, High Cholesterol in HDL [Mass/Vol] 61 mg/dL 39 - PINF mg/dL [facility] Comment on above: 40-59 mg/dL, Accepta ble >59 mg/dL, High: Negative risk factor for coronary heart disease <40 mg/dL, Low: Positive risk factor for coronary heart disease Cholesterol in LDL [Mass/Vol] 95 mg/dL NINF - 100 mg/dL [facility] Comment on above: <100 mg/dL, Optimal 100-129 mg/dL, Near optimal/above optimal 130-159 mg/dL, Borderline high 160-189 mg/dL, High >189 mg/dL, Very high Secondary prevention optimal LDL Cholesterol levels are recommended to be < 70 mg/dL Cholesterol in LDL/Cholesterol in HDL [Mass ratio] 1.56 {ratio} NINF - 2.54 [facility] Comment on above: Reference: 1. National Cholesterol Education Program ATP III Guideline At-A-Glance Quick Desk Reference: National Heart, Lung, and Blood [place]. National Institutes of Health. 2001: NIH Publication No. 01-3305. 2. An International Atherosclerosis Society position paper: global recommendations for the management of dyslipidemia: executive summary, Atherosclerosis. 2014: 232(2):410-413. Cholesterol in VLDL [Mass/Vol] 8 mg/dL NINF - 30 mg/dL [facility] Cholesterol non HDL [Mass/Vol] 103 mg/dL NINF - 130 mg/dL [facility] Comment on above: <130 mg/dL, Optimal 130-159 mg/dL, Near optimal/above optimal 160-189 mg/dL, Borderline high 190-219 mg/dL, High >219 mg/dL, Very high Secondary prevention optimal non HDL Cholesterol levels are recommended to be <100 mg/dL Cholesterol.total/Chol esterol in HDL [Mass ratio] 2.69 {ratio} NINF - 5.10 [facility] Fasting Time 17 hrs [facility] Triglyceride [Mass/Vol] 42 mg/dL NINF - 150 mg/dL [facility] Comment on above: <150 mg/dL, Normal 150-199 mg/dL, Borderline high 200-499 mg/dL, High >499 mg/dL, Very high [facility] No Panel Informationon 09-05 [facility] Interpretation and review of laboratory results Normal [facility] PROGESTERONEon 09-05-2024 Progesterone [Mass/Vol] 0.2 ng/mL See comment [facility] Comment on above: Menstrual Cycle Prog esterone Reference Ranges: Follicular: <1.0 ng/mL Ovulation: <12.1 ng/mL Luteal: 1.8 to 23.9 ng/mL. Progesterone Reference Ranges vary by gestational period: First Trimester: 11.0 to 44.3 ng/mL Second Trimester: 25.4 to 83.3 ng/mL Third Trimester: 58.7 to 214 ng/mL Post menopausal Progesterone: <0.5 ng/mL Reference: 1. Progesterone (Progesterone III) [package insert V 1.0 Mauritian]. [facility], [place], [place]. May 2015. PROLACTINon 09-05-2024 Prolactin [Mass/Vol] 17.2 ng/mL 4.4 - 3 3.8 ng/mL [facility] Comment on above: Prolactin test is pe rformed using the [facility] Electrochemiluminescence Immunoassay method. Results obtained with different methods or kits cannot be used interchangeably. THYROID STIMULATING HORMONEo n 09-05-2024 TSH Qn 1.580 m[IU]/L [facility] Comment on above: If the patient is [...] E, et al. 2017 Guidelines of the [place] Thyroid Association for the Diagnosis and Management of Thyroid Disease during and the . Thyroid, 2017:27:3:315-389. CNOVon 09-04-2024 CNOV Office Visit (INTMWS ) ----- RIDDHI MEDLEY ([id number]) 1995 F Date Time Provider Department 09/04/24 2:00 PM ROD ROSALES INTMWS During your visit today, we recorded the following information about you: Rod Rosales, LORENA.DIRECTOR SALES SUPPORT 09/05/2024 11:46 AM Signed SUBJECTIVE: Pneumococcal Vaccine(1 [...] clots. She is followed by Dr. Jackson ANIMAL CONTROL SUPERVISOR. She reports that she has a Nexplanon [...] route one time only. Dr. Manuel Garcia ANIMAL CONTROL SUPERVISOR cephALEXin (KEFLEX) 250 mg capsule Take 1 [...] normal. She follows with Dr. Pepe Mclaughlin ANIMAL CONTROL SUPERVISOR, due for follow-up. She has a Nexplanon in place. Endorse making an appointment with ANIMAL CONTROL SUPERVISOR rfor recheck. 2. Migraine with aura and [...] - CITALOPRAM 10 MG TABLET Rod Rosales APRN.DIRECTOR SALES SUPPORT Medical Decision Making: Problems: Moderate: 2+ stable chronic illnesses Data: Unique test(s) ordered: 3+ Risk: Moderate: Drug management Medical Decision Making Level: 4 - Moderate Allergies As of Date: 09/04/2024 Noted All (more content not included)... Normal [facility] CREATININE BLDon 09-04-2024 Creatinine [Mass/Vol] 0.84 mg/dL Normal 0.58-0.96 [facility] Comment on above: Order Comment: Speci men Type: BLOOD SPECIMEN Ordering Facility: [facility] Address: [address] [place] [address] Performed By: #### C RET1, 2842-3, 2839-9, 3016-3 #### [facility] CLIA [id number] [address] [place] [address] [place] Creatinine and Glomerular filtration rate.predicted panel (S/P/Bld) 97 mL/min/1.73m??? Normal >=60 [facility] Comment on above: Order Comment: Speci men Type: BLOOD SPECIMEN Ordering Facility: [facility] Address: [address] [place] [address] Result Comment: Cherie mated Glomerular Filtration Rate [...] #### C RET1, 2842-3, 2839-9, 3016-3 #### [facility] CLIA [id number] [address] [place] [address] [place] DHEA-S BLDon 09-04-2024 DHEA-S [Mass/Vol] 166.7 ug/dL Normal 98.8-340.0 [facility] Comment on above: Order Comment: Speci men Type: BLOOD SPECIMEN Ordering Facility: [facility] Address: [address] [place] [address] Result Comment: Refe rence ranges are age and gender specific. For additional information, reference range tables can be found in the laboratory test directory. The normal values are based on the following source: Dehydroepiandrosterone sulfate (DHEA S) [package insert V 17.0 Mauritian]. [facility], [place], [place]: March 2013. Performed By: #### 5 5454-3 #### [facility] CLIA [id number] [address] [place] [address] [place] FSH SerPl-aCncon 09-04-2024 Follitropin Qn 2.5 m[IU]/mL Normal See comment [facility] Comment on above: Order Comment: Speci men Type: BLOOD SPECIMEN Ordering Facility: [facility] Address: [address] [place] [address] Result Comment: Refe rence range: Follicular: 3.5-12.5 mIU/mL Ovulation: 4.7-21.5 mIU/mL Luteal: 1.7-7.7 mIU/mL Postmenopausal: 25.8-134.8 mIU/mL Performed By: #### 5 5454-3 #### [facility] CLIA [id number] [address] [place] [address] [place] Glucose post fast [Mass/Vol] on 09-04-2024 Interpretation and review of laboratory results Normal [facility] HYDROXYPROGESTERONE-17on 17-HYDROXYPROGESTERONE QUANTITATIVE BY HPLC-MS/MS, SERUM OR PLASMA 20.19 ng/dL Normal <=206.00 [facility] Comment on above: Order Comment: Speci men Type: BLOOD SPECIMEN Ordering Facility: [facility] Address: [address] [place] [address] Result Comment: INTERPRETIVE INFORMATION for 17-Hydroxyprogesterone in females: Follicular 15 to 70 ng/dL Luteal 35 to 290 ng/dL REFERENCE INTERVAL: 17-Hydroxyprogesterone Qnt, HPLC-MS/MS Access complete set of age- and/or gender-specific reference intervals for this test in the [employer] [facility] Test Directory (Wantr). This test was developed and its performance characteristics determined by [employer]. It has not been cleared or approved by the US Food and Drug Administration. This test was performed in a CLIA certified laboratory and is intended for clinical purposes. Performed By: [facility] [address] [place] [address] Cashier Office: Kaushik Arreguin MD, PhD CLIA Number: [id number] Performed By: #### C RET1, 2842-3, 2839-9, 3016-3 #### [facility] CLIA [id number] [address] [place] [address] [place] HbA1c (Bld)on 09-04-2024 Average glucose Estimated from glycated hemoglobin (Bld) [Mass/Vol] 105 mg/dL Normal [facility] Comment on above: Order Comment: Jemima vyas Type: BLOOD SPECIMEN Ordering Facility: [facility] Address: [address] [place] [address] Result Comment: eAG: (Estimated average glucose) is a calculated value from HgbA1c and is senior customer service representative of the average blood glucose level in the last 2-3 month period. Performed By: #### 5 5454-3 #### [facility] [place] [id number] [address] [place] [address] [place] HbA1c (Bld) [Mass fraction] 5.3 % Normal 4.3-5.6 [facility] Comment on above: Order Comment: Jemima vyas Type: BLOOD SPECIMEN Ordering Facility: [facility] Address: [address] [place] [address] Result Comment: Amer [place] Diabetes Association guidelines indicate that patients with HgbA1c in the range 5.7-6.4% are at increased risk for development of diabetes, and intervention by lifestyle modification may be beneficial. HgbA1c greater or equal to 6.5% is considered diagnostic of diabetes. Performed By: #### 5 5454-3 #### [facility] [place] [id number] [address] [place] [address] [place] Insulin SerPl-aCncon 025 Insulin Qn 5.1 uU/mL Normal 2.6-24.9 [facility] Comment on above: Order Comment: Jemima vyas Type: BLOOD SPECIMEN Ordering Facility: [facility] Address: [address] [place] [address] Performed By: #### 2 0448-7 #### [facility] IA [id number] [address] [place] [address] [place] LH SerPl-aCncon 09-04-2024 Lutropin Qn 2.2 m[IU]/mL Normal See comment [facility] Comment on above: Order Comment: Jemima vyas Type: BLOOD SPECIMEN Ordering Facility: [facility] Address: [address] [place] [address] Result Comment: Refe rence range: Follicular: 2.4-12.6 mIU/mL Midcycle: 14.0-95.6 mIU/mL Luteal: 1.0-11.4 mIU/mL Post Reyna: 7.7-58.5 mIU/mL Performed By: #### 5 5454-3 #### [facility] CLIA [id number] [address] [place] [address] [place] Laboratory - Chemistry and C hemistry - challengeon 09-04-2024 Glucose post fast [Mass/Vol] 85 mg/dL Normal 74-99 [facility] Comment on above: [place] Diabetes As sociation guidelines state that a diabetes mellitus diagnosis is preliminarily made when the fasting plasma glucose meets or exceeds 126 mg/dL. In the absence of unequivocal hyperglycemia, results should be confirmed with repeat testing. Patients are at increased risk for diabetes mellitus (prediabetes) when the fasting glucose is 100 to 125 mg/dL. Order Comment: Jemima vyas Type: BLOOD SPECIMEN Ordering Facility: [facility] Address: [address] [place] [address] Result Comment: Amer [place] Diabetes Association guidelines state that a diabetes mellitus diagnosis is preliminarily made when the fasting plasma glucose meets or exceeds 126 mg/dL. In the absence of unequivocal hyperglycemia, results should be confirmed with repeat testing. Patients are at increased risk for diabetes mellitus (prediabetes) when the fasting glucose is 100 to 125 mg/dL. Performed By: #### 5 5454-3 #### [facility] CLIA [id number] [address] [place] [address] [place] Lipid 1995 panelon Cholesterol [Mass/Vol] 164 mg/dL Normal <200 [facility] Comment on above: Order Comment: Jemima vyas Type: BLOOD SPECIMEN Ordering Facility: [facility] Address: [address] [place] [address] Result Comment: <200 mg/dL, Desirable 200-239 mg/dL, Borderline high >239 mg/dL, High Performed By: #### 5 5454-3 #### [facility] CLIA [id number] [facility] [address] [place] Cholesterol in HDL [Mass/Vol] 61 mg/dL Normal >39 [facility] Comment on above: Order Comment: Jemima men Type: BLOOD SPECIMEN Ordering Facility: [facility] Address: [address] [place] [address] Result Comment: 40-5 9 mg/dL, Acceptable >59 mg/dL, High: Negative risk factor for coronary heart disease <40 mg/dL, Low: Positive risk factor for coronary heart disease Performed By: #### 5 5454-3 #### [facility] CLIA [id number] [address] [place] [address] [place] Cholesterol in LDL [Mass/Vol] 95 mg/dL Normal <100 [facility] Comment on above: Order Comment: Jemima vyas Type: BLOOD SPECIMEN Ordering Facility: [facility] Address: [address] [place] [address] Result Comment: <100 mg/dL, Optimal 100-129 mg/dL, Near optimal/above optimal 130-159 mg/dL, Borderline high 160-189 mg/dL, High >189 mg/dL, Very high Secondary prevention optimal LDL Cholesterol levels are recommended to be < 70 mg/dL Performed By: #### 5 5454-3 #### [facility] CLIA [id number] [address] [place], [place] [address]K [address] [place] Cholesterol in LDL/Cholesterol in HDL [Mass ratio] 1.56 {ratio} Normal <2.54 [facility] Comment on above: Order Comment: Jemima vyas Type: BLOOD SPECIMEN Ordering Facility: [facility] Address: [address] [place] [address] Result Comment: Refe rence: 1. National Cholesterol Education Program ATP III Guideline At-A-Glance Quick Desk Reference: National Heart, Lung, and Blood [place]. National Institutes of Health. 2001: NIH Publication No. 01-3305. 2. An International Atherosclerosis Society position paper: global recommendations for the management of dyslipidemia: executive summary, Atherosclerosis. 2014: 232(2):410-413. Performed By: #### 5 5454-3 #### [facility] CLIA [id number] [facility] [place] [address] [place] Cholesterol in VLDL [Mass/Vol] 8 mg/dL Normal <30 [facility] Comment on above: Order Comment: Jemima men Type: BLOOD SPECIMEN Ordering Facility: [facility] Address: [address] [place] [address] Performed By: #### 5 5454-3 #### [facility] CLIA [id number] [address] [place] [address] [place] Cholesterol non HDL [Mass/Vol] 103 mg/dL Normal <130 [facility] Comment on above: Order Comment: Jemima vyas Type: BLOOD SPECIMEN Ordering Facility: [facility] Address: [address] [place] [address] Result Comment: <130 mg/dL, Optimal 130-159 mg/dL, Near optimal/above optimal 160-189 mg/dL, Borderline high 190-219 mg/dL, High >219 mg/dL, Very high Secondary prevention optimal non HDL Cholesterol levels are recommended to be <100 mg/dL Performed By: #### 5 5454-3 #### [facility] CLIA [id number] [address] [place] [address] [place] Cholesterol.total/Chol esterol in HDL [Mass ratio] 2.69 {ratio} Normal <5.10 [facility] Comment on above: Order Comment: Jemima vyas Type: BLOOD SPECIMEN Ordering Facility: [facility] Address: [address] [place] [address] Performed By: #### 5 5454-3 #### [facility] CLIA [id number] [address] [place] [address] [place] FASTING TIME 17 hrs Normal [facility] Comment on above: Order Comment: Speci men Type: BLOOD SPECIMEN Ordering Facility: [facility] Address: [address] [place] [address] Performed By: #### 5 5454-3 #### [facility] CLIA [id number] [address] [place] [address] [place] Triglyceride [Mass/Vol] 42 mg/dL Normal <150 [facility] Comment on above: Order Comment: Speci men Type: BLOOD SPECIMEN Ordering Facility: [facility] Address: [address] [place] [address] Result Comment: <150 mg/dL, Normal 150-199 mg/dL, Borderline high 200-499 mg/dL, High >499 mg/dL, Very high Performed By: #### 5 5454-3 #### [facility] CLIA [id number] [address] [place] [address] [place] Progest SerPl-mCncon 025 Progesterone [Mass/Vol] 0.2 ng/mL Normal See comment [facility] Comment on above: Order Comment: Speci lilliam Type: BLOOD SPECIMEN Ordering Facility: [facility] Address: [address] [place] [address] Result Comment: Mens trual Cycle Progesterone Reference Ranges: Follicular: <1.0 ng/mL Ovulation: <12.1 ng/mL Luteal: 1.8 to 23.9 ng/mL. Progesterone Reference Ranges vary by gestational period: First Trimester: 11.0 to 44.3 ng/mL Second Trimester: 25.4 to 83.3 ng/mL Third Trimester: 58.7 to 214 ng/mL Post menopausal Progesterone: <0.5 ng/mL Reference: 1. Progesterone (Progesterone III) [package insert V 1.0 Mauritian]. [facility], [place], [place]. May 2015. Performed By: #### C RET1, 2842-3, 2839-9, 3016-3 #### [facility] CLIA [id number] [address] [place] [address] [place] Prolactin SerPl-mCncon 09-04 Prolactin [Mass/Vol] 17.2 ng/mL Normal 4.4-33.8 [facility] Comment on above: Order Comment: Specdavid men Type: BLOOD SPECIMEN Ordering Facility: [facility] Address: [address] [place] [address] Result Comment: Prol actin test is performed using the [facility] [facility] Electrochemiluminescence Immunoassay method. Results obtained with different methods or kits cannot be used interchangeably. Performed By: #### C RET1, 2842-3, 2839-9, 3016-3 #### [facility] CLIA [id number] [address] [place] [address] [place] TSH SerPl-aCncon 09-04-2024 TSH Qn 1.580 m[IU]/L Normal 0.270-4.200 [facility] Comment on above: Order Comment: Speci men Type: BLOOD SPECIMEN Ordering Facility: [facility] Address: [address] [place] [address] Result Comment: If t he patient is , TSH reference range varies by gestational period: First Trimester (weeks 9-12): 0.180-2.990 mIU/L Second Trimester: 0.110-3.980 mIU/L Third Trimester: 0.480-4.710 mIU/L Suleman Chowdhury et al. A Practical Approach for the Verifications and Determination of Site- and Trimester-Specific Reference Intervals for Thyroid Function tests in . Thyroid, 2019:29:3:412-420. Sebas Zambrano, et al. 2017 Guidelines of the [place] Thyroid Association for the Diagnosis and Management of Thyroid Disease during and the . Thyroid, 2017:27:3:315-389. Performed By: #### C RET1, 2842-3, 2839-9, 3016-3 #### [facility] CLIA [id number] [address] [place] [address] [place] Breast Limited Unilateralon 06-25-2024 Breast Limited Unilateral [facility] Imaging Services [address] [place], [place] [id number] Breast Limited Unilateral MR#: [id number] Acct: [id number] Name: RIDDHI MEDLEY Rep #: [id number] : 1995 F 29 From: Nas infante MD PCP: Dr. Elkin Oliva MD Status: REG CLI Study: Breast Limited Unilateral Date of Exam: Exam# [id number] Ordering Dr: Mahnaz Lovett CNM [id number] STUDY: ULTRASOUND BREAST - RIGHT REASON FOR [...] CC: PERFECTO Lovett; Dr. Elkin Oliva MD [place] Hand: Signed Normal [facility] DIAG MAMM W/CAD, BILATon DIAG MAMM W/CAD, [facility] Imaging Services [address] [place] [id number] DIAG MAMM W/CAD, BIL MR#: [id number] Acct: [id number] Name: RIDDHI MEDLEY Rep #: [id number] : 1995 F 29 From: Nas infante MD PCP: Dr. Elkin Oliva MD Status: [facility] Study: DIAG MAMM W/CAD, BILAT Date of Exam: 06/25/24 Exam# [id number] Ordering Dr: Mahnaz Lovett [facility] [id number] MAMMOGRAPHY - BILATERAL DIAGNOSTIC REASON FOR EXAM: [...] CC: PERFECTO Lovett; Dr. Elkin Oliva MD [place] Hand: Signed Normal [facility] PAP I-G w/rfx hrHPV-Aptimaon 06-22-2024 ADEQ Comment Normal . [facility] Comment on above: Order Comment: Speci men Comment: [id number] Comment: Source.............CervixSpecimen Comment: LMP / Prev Treat...[id number] Comment: No. of containers..01 ThinPrep Vial Result Comment: Sati sfactory for evaluation. No endocervical component is identified. Performed By: #### L 7400.0353, L7000.1800 ####[facility] [address] [place], [place], [address] COMM . Normal . [facility] Comment on above: Order Comment: Speci men Comment: [id number] Comment: Source.............CervixSpecimen Comment: LMP / Prev Treat...[id number]=[id number] Comment: No. of containers..01 ThinPrep Vial Performed By: #### L 7400.0353, L7000.1800 ####[facility] [address] [place], [place], [address] COMMENT Comment Normal . [facility] Comment on above: Order Comment: Speci men Comment: [id number] Comment: Source.............CervixSpecimen Comment: LMP / Prev Treat...TOL=[id number] Comment: No. of containers..01 ThinPrep Vial Result Comment: This liquid based ThinPrep(R) pap test was screened with the use of an image guided system. Performed By: #### L 7400.0353, L7000.1800 ####[facility] [address] [place], [place], [address] DIAG Comment Abnormal . [facility] Comment on above: Order Comment: Speci men Comment: [id number] Comment: Source.............CervixSpecimen Comment: LMP / Prev Treat...[id number]=[id number] Comment: No. of containers..01 ThinPrep Vial Result Comment: EPIT HELIAL CELL ABNORMALITY. ATYPICAL SQUAMOUS CELLS OF UNDETERMINED SIGNIFICANCE (ASC-US). Performed By: #### L 7400.0353, L7000.1800 ####[facility] [address] [place], [place], [address] HPV APTIMA, HR Negative Normal Negative [facility] Comment on above: Order Comment: Speci men Comment: [id number] Comment: Source.............CervixSpecimen Comment: LMP / Prev Treat...PSY=[id number] Comment: No. of containers..01 ThinPrep Vial Result Comment: This nucleic acid amplification test detects fourteen high- risk HPV types (16,18,31,33,35,39,45,51,52,56,58,59,66,68) without differentiation. Performed at: - [address] [id number] Clinical Laboratory Medical Director: Shira Gardiner MD, Phone: [phone] Performed at: [facility] [address] [place] [id number] Clinical Laboratory Medical Director: Willis Clark MD, Phone: [phone] Performed at: = - [address], [place] [id number] Clinical Laboratory Medical Director: Shira Gardiner MD, Phone: [phone] Performed By: #### L 7400.0353, L7000.1800 ####[facility] [address] [place], [place], [address] HPV RFLX Comment Normal . [facility] Comment on above: Order Comment: Speci men Comment: [id number] Comment: Source.............CervixSpecimen Comment: LMP / Prev Treat...DDR=[id number] Comment: No. of containers..01 ThinPrep Vial Result Comment: See below for HPV testing results. Performed By: #### L 7400.0353, L7000.1800 ####[facility] [address] [place], [place], [address] PAPSMR Comment Normal . [facility] Comment on above: Order Comment: Speci men Comment: [id number] Comment: Source.............CervixSpecimen Comment: LMP / Prev Treat...IFE=[id number] Comment: No. of containers..01 ThinPrep Vial Result Comment: The Pap smear is a screening test designed to aid in the detection of premalignant and malignant conditions of the uterine cervix. It is not a diagnostic procedure and should not be used as the sole means of detecting cervical cancer. Both false-positive and false-negative reports do occur. Performed By: #### L 7400.0353, L7000.1800 ####[facility] [address] [place], [place], [address] Path.prov.IDC-9 Comment Normal . [facility] Comment on above: Order Comment: Speci men Comment: [id number] Comment: Source.............CervixSpecimen Comment: LMP / Prev Treat...JUI=[id number] Comment: No. of containers..01 ThinPrep Vial Result Comment: R87. 610 Performed By: #### L 7400.0353, L7000.1800 ####[facility] [address] [place], [place], [address] PERFORM Comment Normal . [facility] Comment on above: Order Comment: Speci men Comment: [id number] Comment: Source.............CervixSpecimen Comment: LMP / Prev Treat...SQO=[id number] Comment: No. of containers..01 ThinPrep Vial Result Comment: Aamir Lovett, Finishing Room Supervisor (ASCP) Performed By: #### L 7400.0353, L7000.1800 ####[facility] [address] [place], [address] RECOMM Comment Abnormal . [facility] Comment on above: Order Comment: Speci men Comment: [id number] Comment: Source.............CervixSpecimen Comment: LMP / Prev Treat...IFG=[id number] Comment: No. of containers..01 ThinPrep Vial Result Comment: Sugg est follow up as clinically appropriate. Performed By: #### L 7400.0353, L7000.1800 ####[facility] [address] [place], [address] SIGN Comment Normal . [facility] Comment on above: Order Comment: Speci men Comment: [id number] Comment: Source.............CervixSpecimen Comment: LMP / Prev Treat...FCJ=[id number] Comment: No. of containers..01 ThinPrep Vial Result Comment: La Cherry MD, Pathologist Performed By: #### L 7400.0353, L7000.1800 ####[facility] [address] [place], [address] Chlamydia/GC SHARI aptimaon CHLAMY,NUC ACID Negative Normal Negative [facility] Comment on above: Performed By: #### L 7400.0353, L7000.1800 ####[facility] [address] [place], [address] GC BY NUC ACID Negative Normal Negative [facility] Comment on above: Result Comment: Perf ormed at: =G - [facility] [address] [place] [id number] Clinical Laboratory Medical Director: Shira Gardiner MD, Phone: [phone] Performed By: #### L 7445.0353, L4000.1800 ####[facility] [address] [place], [place], [address] HSV 1 AND 2 IgGon 06-16-2024 HSV 1 IgG Normal [facility] Comment on above: Result Comment: TEST RESULTS LIMITS HSV 1 IgG, Type Spec Reactive *Abnormal Non-Reactive Please note reference interval change HSV-1 IgG testing performed using the [employer] HSV-1 IgG assay. TESTING PERFORMED AT [facility]. ORIGINAL REPORT ON FILE IN LAB CONTAINS ADDITIONAL TEST SITE INFORMATION. Performed By: #### L 3400.1610, L509.8000, L3890.6005 ####[facility] [address] [place], [place], [address] HSV 2 IgG Normal [facility] Comment on above: Result Comment: TEST [...] [facility] HSV-2 IgG assay. Performed at: [address] [id number] Clinical Laboratory Medical Director: Edvin Salgado PhD, Phone: [phone] TESTING PERFORMED AT [facility]. ORIGINAL REPORT ON FILE IN LAB CONTAINS ADDITIONAL TEST SITE INFORMATION. Performed By: #### L 3400.1610, L509.8000, L3890.6005 ####[facility] [address] [place], [address] HIV - WCHon 06-15-2024 HIV Non-Reactive Normal Nonreactive [facility] Comment on above: Performed By: #### L 3400.1610, L509.8000, L3890.6005 ####[facility] [address] [place], [address] L509.8000on 06-15-2024 Syphilis Abs Non-Reactive Normal [facility] Comment on above: Performed By: #### L 3400.1610, L509.8000, L3890.6005 ####[facility] [address] [place], [address] University President Office Visit Reporton 06-15-2024 University President Office Visit Report [facility] [address], [address] [place] [address] OFFICE VISIT Date of Service: 06/15/24 MR#: [id number] Acct: [id number] Name: RIDDHI MEDLEY Rep #: [id number] : 1995 Provider: PERFECTO Andersno ams Age/Sex: 29/F Location: 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: No Is patient in pain?: No Allergies amitriptyline Adverse Reaction (Intermediate, Verified 06/15/24 09:34) confusion Medications ???Medication ???Instructions ???Recorded ???Confirmed ???Type axlfhhy-ehcnjofjnbhxa-fcz feine 250 1 tab PO Q6H PRN [...] 06/10/24 Patient : No Control Method: Nexplanon PFSH Medical History Lesion of cervix Low [...] History Grandmother Diabetes Breast cancer Grandfather Diabetes Pafnk-7-mgbeabgbubn deficiency Social History (Updated 06/15/24 @ 09:38 by Patti Brizuela, RN) Smoking Status: Current every day smoker tobacco type: e-cigarettes Electronic Cigarette Use: with nicotine alcohol intake: never substance use type: does not use caffeine: Yes (rarely) what type of physical activity do you participate in: walking and other details: 20,000 steps per day seatbelt use: always do you feel safe at home: Yes additional social history: Boyfriend-Gerardo Goodson Patient works at [employer] History 2 Elective abortions Hx Para 1 Spontaneous abortions 1 Hx # Term Pregnancies Ectopic pregnancies Hx # Pregnancies Multiple births # of living children 1 Past Pregnancies Del. Date Name GA/Weeks Outcome Route Bth Weight Gen Labor Lgth Anesthesia Del Locatn Provider FOB 06/06/20 Bekc 38 live - full term Male epidural [...] as documented; (more content not included)... Normal [facility] CT Abd/Pelvis W/WO Contrasto n 05-06-2024 CT Abd/Pelvis W/WO Contrast [facility] Imaging Services [address] [place] [address] CT Abd/Pelvis W/WO Contrast MR#: [id number] Acct: [id number] Name: RIDDHI MEDLEY Rep #: [id number] : 1995 F 29 From: Cirilo garcia MD PCP: Dr. Elkin Oliva MD Status: REG CL Study: CT Abd/Pelvis W/WO Contrast Date of Exam: 09/28 Exam# [id number] Ordering Dr: Emma Schilling MD [id number] STUDY: CT ABDOMEN AND PELVIS WITH AND [...] Emma Schilling MD; Dr. Elkin Oliva MD [place] Hand: [facility] (PSWSTR ) ----- RIDDHI MEDLEY ([id number]) 1995 F Date Time Provider Department 01/14/24 4:00 PM CATHERINE MARIA PSWSTR During your visit today, we recorded the following information about you: Catherine Maria, SECURITY CONTROL ASSESSOR.[facility] 01/14/2024 5:06 PM Signed Patient did not come in for her initial visit scheduled with the provider today. Referring Provider: ROD ROSALES [[id number]] Allergies As of Date: 01/14/2024 Noted Allergy [...] Encounter Status:Closed by CATHERINE MARIA on 01/14/24 [facility] CNOVon 01-06-2024 CNOV Office Visit (INTMWS ) ----- RIDDHI MEDLEY ([id number]) 1995 F Date Time Provider Department 01/06/24 [...] Maintenance reviewed (more content not included)... Normal [facility] Sonny 11-15-2023 YOHANNES Telephone (INTMWS) ----- RIDDHI MEDLEY ([id number]) 1995 F Date Time Provider Department 11/15/23 ELKIN OLIVA During your visit today, we recorded the following information about you: Loretta Pham LPN 11/15/2023 10:39 AM Signed Patient calling requesting a referral to Psychiatry in the building please. Pending not sure which on is needed. Please advise Rod Rosales APRN.DIRECTOR SALES SUPPORT 11/15/2023 4:47 PM Signed Okay, please schedule. [...] [F43.10] Order(s):CONSULT TO PSYCHIATRY [9035] Order #: [id number]: 1 FUTURE Prescriptions as of 11/15/2023 - [...] Status:Closed by ROD ROSALES on 11/15/23 Normal [facility] Laboratory - Chemistry and C hemistry - challengeOrdered By: Miguelangel Asher on 09-26-2023 HCG ( test) Ql (U) Negative [facility] Comment on above: Very dilute urine sp ecimens, as indicated by a low specificgravity, may not contain senior customer service representative levels of hCG. If is still suspected, a first morning urinespecimen should be collected 48 hours later and tested. Absolute lymphocyte countOrd ered By: ED PROVIDER on 08-28-2023 Lymphocytes Auto (Unsp spec) [#/Vol] 2.35 10*3/uL 0.83-4.51 [facility] Automated lymphocyte count a s percentage of total leukocytesOrdered By: ED PROVIDER on 08-28-2023 Lymphocytes/100 WBC Auto (Unsp spec) 33.4 % 19-41 [facility] Basophil percentageOrdered B y: Nohelia Lawson on 08-28-2023 Basophil percentage 25-50 SEEN /hpf 0-5 [facility] Basophil percentageOrdered B y: ED PROVIDER on 08-28-2023 Basophils/100 WBC (Bld) 0.6 % 0-1 [facility] Bilirubin [Mass/Vol] 0.30 mg/dL 0.20-1.00 [facility] Comment on above: For patients on eltr ombopag therapy, use of Dimension [place] TBIL is not recommended. Chloride [Moles/Vol] 111 mmol/L 98-107 [facility] Eosinophils/100 WBC (Bld) 2.6 % 0-5 [facility] Glucose [Mass/Vol] 81 mg/dL 74-106 [facility] Hemoglobin (Bld) [Mass/Vol] 13.3 g/dL 12.0-15.0 [facility] Monocytes/100 WBC (Bld) 6.3 % 0-10 [facility] Neutrophils (Bld) [#/Vol] 4.0 10*3/uL 2.0-7.7 [facility] Neutrophils/100 WBC (Bld) 56.8 % 47-70 [facility] Potassium [Moles/Vol] 4.2 mmol/L 3.5-5.1 [facility] Protein [Mass/Vol] 7.2 g/dL 6.4-8.2 [facility] Sodium [Moles/Vol] 142 mmol/L 136-145 [facility] WBC (Bld) [#/Vol] 7.0 10*3/uL 4.4-11.0 [facility] Bilirubin Test strip Ql (U)O rdered By: Nohelia Lawson on 08-28-2023 Bilirubin Ql (U) Negative Negative [facility] Determination of erythrocyte mean corpuscular volume (MCV)Ordered By: ED PROVIDER on 08-28-2023 MCV (RBC) [Entitic vol] 89.8 fL 81-99 [facility] Erythrocyte distribution wid th ratioOrdered By: ED PROVIDER on 08-28-2023 Erythrocyte distribution width (RBC) [Ratio] 12.0 % 11.6-14.6 [facility] Erythrocyte distribution wid th standard deviationOrdered By: ED PROVIDER on 08-28-2023 Erythrocyte distribution width (RBC) [Entitic vol] 39.4 fL 35.1-43.9 [facility] Hematocrit Auto (Bld) [Volum e fraction]Ordered By: ED PROVIDER on 08-28-2023 Hematocrit (Bld) [Volume fraction] 40.5 % 37-47 [facility] Immature granulocytes/100 WB C Auto (Bld)Ordered By: ED PROVIDER on 08-28-2023 Immature granulocytes/100 WBC (Bld) 0.300 % 0.0-0.9 [facility] Comment on above: IG% - Immature Granu locytes (promyelocytes, myelocytes and metamyelocytes) > 1% indicates that a LEFT SHIFT is Present. Ketones Test strip Ql (U)Ord ered By: Nohelia Lawson on 08-28-2023 Ketones Ql (U) Negative Negative [facility] Laboratory - Chemistry and C hemistry - challengeOrdered By: ED PROVIDER on 08-28-2023 Albumin/Globulin [Mass ratio] 1.1 {ratio} 0.9-2.4 [facility] ALP [Catalytic activity/Vol] 69 U/L 45-117 [facility] ALT [Catalytic activity/Vol] 17 U/L 13-56 [facility] CO2 [Moles/Vol] 28.0 mmol/L 21.0-32.0 [facility] Globulin (S) [Mass/Vol] 3.4 g/dL 2.2-4.2 [facility] Urea nitrogen/Creatinine [Mass ratio] 14.3 mg/mg 10-20 [facility] Laboratory - Hematology and Cell countsOrdered By: ED PROVIDER on 08-28-2023 MCH (RBC) [Entitic mass] 29.5 pg 27.0-32.0 [facility] MCHC (RBC) [Mass/Vol] 32.8 g/dL 32-36 [facility] Nucleated RBC/100 WBC (Bld) [Ratio] 0 % 0-5 [facility] Platelets (Bld) [#/Vol] 295 10*3/uL 150-450 [facility] Mucus LM Ql (Urine sed)Order ed By: Nohelia Lawson on 08-28-2023 Mucus Ql (Urine sed) 0 SEEN /hpf [facility] Nitrite Test strip Ql (U)Ord ered By: Nohelia Lawson on 08-28-2023 Nitrite Ql (U) Negative Negative [facility] No Panel InformationOrdered By: Nohelia Lawson on 08-28-2023 Urine RBC 5-10 SEEN /hpf 0-5 [facility] No Panel InformationOrdered By: ED PROVIDER on 08-28-2023 Estimated Creatinine Clearance Calc 74.92 ml/min [facility] Estimated GFR (MDRD) Amer 104 mL/min >60 [facility] Comment on above: GFR Calc Estimated GFR (MDRD) Non-Af Amer 86 mL/min >60 [facility] Comment on above: Non- GFR Calc Platelet mean volume Jose-Ec ker (Bld) [Entitic vol]Ordered By: ED PROVIDER on 08-28-2023 Platelet mean volume (Bld) [Entitic vol] 10.3 fL 6.2-12.0 [facility] Protein Test strip Ql (U)Ord ered By: Nohelia Lawson on 08-28-2023 Protein Ql (U) 15 mg/dl Negative [facility] RBC Auto (Bld) [#/Vol]Ordere d By: ED PROVIDER on 08-28-2023 RBC (Bld) [#/Vol] 4.51 10*6/uL 4.2-5.4 [facility] Serum or plasma calcium tono urement (mass/volume)Ordered By: ED PROVIDER on 08-28-2023 Calcium [Mass/Vol] 9.2 mg/dL 8.5-10.1 [facility] Serum or plasma choriogonado tropin detectionOrdered By: ED PROVIDER on 08-28-2023 HCG ( test) Ql Negative [facility] Serum or plasma creatinine m easurement (mass/volume)Ordered By: ED PROVIDER on 08-28-2023 Creatinine [Mass/Vol] 0.84 mg/dL 0.55-1.02 [facility] Comment on above: The validity of the calculated GFR & GFRAA in patients over 70 years has not been determined. Clinical correlation is essential. Serum or plasma urea nitroge n measurement (mass/volume)Ordered By: ED PROVIDER on 08-28-2023 Urea nitrogen [Mass/Vol] 12 mg/dL 7-18 [facility] Squamous epithelial cells de tection in urine sediment by light microscopyOrdered By: Nohelia Lawson on 08-28-2023 Epithelial cells.squamous LM Ql (Urine sed) 5-10 SEEN /hpf 5-10 [facility] Thin prep Papanicolaou smear with manual screeningOrdered By: ED PROVIDER on 08-28-2023 Thin prep Papanicolaou smear with manual screening 3.8 g/dL 3.2-5.0 [facility] Thin prep Papanicolaou smear with manual screening 13 U/L 15-37 [facility] Thin prep Papanicolaou smear with manual screening 3 5-15 [facility] Urine blood detectionOrdered By: Nohelia Lawson on 08-28-2023 RBC Ql (U) 150 /ul Negative [facility] Urine clarityOrdered By: Marialuisa Lawson on 08-28-2023 Clarity (U) Sl. Cloudy Clear [facility] Urine color determinationOrd ered By: Nohelia Lawson on 08-28-2023 Color (U) Yellow Yellow [facility] Urine glucose detectionOrder ed By: Nohelia Lawson on 08-28-2023 Glucose Ql (U) Normal mg/dl Normal [facility] Urine leukocyte esterase det ection by dipstickOrdered By: Nohelia Lawson on 08-28-2023 Leukocyte esterase Test strip Ql (U) 100 /ul Negative [facility] Urine pHOrdered By: Nohelia Lawson on 08-28-2023 pH (U) 6.0 [pH] 5.0 - 8.0 [facility] Urine sediment bacteria coun t by microscopy (number/high power field)Ordered By: Nohelia Lawson on 08-28-2023 Bacteria LM.HPF (Urine sed) [#/Area] RARE /hpf None Seen [facility] Urine specific gravity measu rementOrdered By: Nohelia Lawson on 08-28-2023 Specific gravity (U) [Rel density] 1.025 1.002-1.030 [facility] Urine urobilinogen measureme ntOrdered By: Nohelia Lawson on 08-28-2023 Urobilinogen Ql (U) Normal mg/dl Normal [facility] Absolute lymphocyte countOrd ered By: Lolly Judge on 07-19-2023 Lymphocytes Auto (Unsp spec) [#/Vol] 2.52 10*3/uL 0.83-4.51 [facility] Basophil percentageOrdered B y: Lolly Judge on 07-19-2023 Basophil percentage 25-50 SEEN /hpf 0-5 [facility] Basophils/100 WBC (Bld) 0.6 % 0-1 [facility] Chloride [Moles/Vol] 108 mmol/L 98-107 [facility] Eosinophils/100 WBC (Bld) 0.8 % 0-5 [facility] Glucose [Mass/Vol] 92 mg/dL 74-106 [facility] Neutrophils (Bld) [#/Vol] 4.2 10*3/uL 2.0-7.7 [facility] Neutrophils/100 WBC (Bld) 58.3 % 47-70 [facility] Potassium [Moles/Vol] 3.8 mmol/L 3.5-5.1 [facility] Sodium [Moles/Vol] 139 mmol/L 136-145 [facility] WBC (Bld) [#/Vol] 7.3 10*3/uL 4.4-11.0 [facility] Beta hCG serum qualOrdered B y: Lolly Judge on 07-19-2023 Beta HCG ( test) Ql Negative 0-9 Nonpreg [facility] Bilirubin Test strip Ql (U)O rdered By: Lolly Judge on 07-19-2023 Bilirubin Ql (U) Negative Negative [facility] Blood erythrocytes count (nu mber/volume)Ordered By: Lolly Judge on 07-19-2023 RBC (Bld) [#/Vol] 4.38 10*6/uL 4.2-5.4 [facility] Blood hemoglobin measurement (mass/volume)Ordered By: Lolly Judge on 07-19-2023 Hemoglobin (Bld) [Mass/Vol] 13.2 g/dL 12.0-15.0 [facility] Blood lymphocytes/100 leukoc ytesOrdered By: Lolly Judge on 07-19-2023 Lymphocytes/100 WBC (Bld) 34.7 % 19-41 [facility] Blood monocytes/100 leukocyt esOrdered By: Lolly Judge on 07-19-2023 Monocytes/100 WBC (Bld) 5.5 % 0-10 [facility] Blood platelet mean volumeOr dered By: Lolly Judge on 07-19-2023 Platelet mean volume (Bld) [Entitic vol] 10.8 fL 6.2-12.0 [facility] Culture, urineOrdered By: Re sera Judge on 07-19-2023 Bacteria identified Cx Nom (U) Escherichia coli [facility] Determination of erythrocyte mean corpuscular volume (MCV)Ordered By: Lolly Judge on 07-19-2023 MCV (RBC) [Entitic vol] 90.9 fL 81-99 [facility] Erythrocyte sedimentation ra teOrdered By: Lolly Judge on 07-19-2023 ESR (Bld) [Velocity] 5 mm/h 0-30 [facility] Hematocrit Auto (Bld) [Volum e fraction]Ordered By: Lolly Judge on 07-19-2023 Hematocrit (Bld) [Volume fraction] 39.8 % 37-47 [facility] Ketones Test strip Ql (U)Ord ered By: Lolly Judge on 07-19-2023 Ketones Ql (U) 5 mg/dl Negative [facility] Laboratory - Chemistry and C hemistry - challengeOrdered By: Lolly Judge on 07-19-2023 CO2 [Moles/Vol] 28.0 mmol/L 21.0-32.0 [facility] Urea nitrogen/Creatinine [Mass ratio] 11.9 mg/mg 10-20 [facility] Laboratory - Hematology and Cell countsOrdered By: Lolly Judge on 07-19-2023 Erythrocyte distribution width (RBC) [Entitic vol] 39.9 fL 35.1-43.9 [facility] Erythrocyte distribution width (RBC) [Ratio] 12.0 % 11.6-14.6 [facility] Immature granulocytes/100 WBC (Bld) 0.100 % 0.0-0.9 [facility] Comment on above: IG% - Immature Granu locytes (promyelocytes, myelocytes and metamyelocytes) > 1% indicates that a LEFT SHIFT is Present. MCH (RBC) [Entitic mass] 30.1 pg 27.0-32.0 [facility] Nucleated RBC/100 WBC (Bld) [Ratio] 0 % 0-5 [facility] MCHC Auto (RBC) [Mass/Vol]Or dered By: Lolly Judge on 07-19-2023 MCHC (RBC) [Mass/Vol] 33.2 g/dL 32-36 [facility] Mucus LM Ql (Urine sed)Order ed By: Lolly Judge on 07-19-2023 Mucus Ql (Urine sed) 0 SEEN /hpf [facility] Nitrite Test strip Ql (U)Ord ered By: Lolly Judge on 07-19-2023 Nitrite Ql (U) Positive Negative [facility] No Panel InformationOrdered By: Lolly Judge on 07-19-2023 Estimated Creatinine Clearance Calc 64.67 ml/min [facility] Estimated GFR (MDRD) Amer 94 mL/min >60 [facility] Comment on above: GFR Calc Estimated GFR (MDRD) Non-Af Amer 77 mL/min >60 [facility] Comment on above: Non- GFR Calc Platelets bldOrdered By: Rem us Alfie on 07-19-2023 Platelets (Bld) [#/Vol] 268 10*3/uL 150-450 [facility] Protein Test strip Ql (U)Ord ered By: Remus Ungravi on 07-19-2023 Protein Ql (U) 100 mg/dl Negative [facility] Serum or plasma calcium tono urement (mass/volume)Ordered By: Remus Ungravi on 07-19-2023 Calcium [Mass/Vol] 9.5 mg/dL 8.5-10.1 [facility] Serum or plasma creatinine m easurement (mass/volume)Ordered By: Remus Ungravi on 07-19-2023 Creatinine [Mass/Vol] 0.92 mg/dL 0.55-1.02 [facility] Comment on above: The validity of the calculated GFR & GFRAA in patients over 70 years has not been determined. Clinical correlation is essential. Serum or plasma urea nitroge n measurement (mass/volume)Ordered By: Remus Alfie on 07-19-2023 Urea nitrogen [Mass/Vol] 11 mg/dL 7-18 [facility] Squamous epithelial cells de tection in urine sediment by light microscopyOrdered By: Remus Ungravi on 07-19-2023 Epithelial cells.squamous LM Ql (Urine sed) 10-25 SEEN /hpf 5-10 [facility] Thin prep Papanicolaou smear with manual screeningOrdered By: Remus Alfie on 07-19-2023 Thin prep Papanicolaou smear with manual screening 3 5-15 [facility] Urine blood detectionOrdered By: Remus Ungur on 07-19-2023 RBC Ql (U) 250 /ul Negative [facility] RBC Ql (U) 25-50 SEEN /hpf 0-5 [facility] Urine clarityOrdered By: Rem us Ungur on 07-19-2023 Clarity (U) Cloudy Clear [facility] Urine color determinationOrd ered By: Remus Ungravi on 07-19-2023 Color (U) Yellow Yellow [facility] Urine glucose detectionOrder ed By: Remus Ungravi on 07-19-2023 Glucose Ql (U) Normal mg/dl Normal [facility] Urine leukocyte esterase det ection by dipstickOrdered By: Lolly Judge on 07-19-2023 Leukocyte esterase Test strip Ql (U) 500 /ul Negative [facility] Urine pHOrdered By: Lolly Bermudez gur on 07-19-2023 pH (U) 6.0 [pH] 5.0 - 8.0 [facility] Urine sediment bacteria coun t by microscopy (number/high power field)Ordered By: Lolly Judge on 07-19-2023 Bacteria LM.HPF (Urine sed) [#/Area] 3 /[HPF] None Seen [facility] Urine specific gravity measu rementOrdered By: Lolly Judge on 07-19-2023 Specific gravity (U) [Rel density] 1.020 1.002-1.030 [facility] Urobilinogen Auto test strip Ql (U)Ordered By: Lolly Judge on 07-19-2023 Urobilinogen Ql (U) Normal mg/dl Normal [facility] Cervical or vagninal specime n microscopic examination by cytology stain (reported asOrdered By: Mahnaz Lovett on 06-14-2023 Cytology report Cyto stain Doc (Cvx/Vag) Comment . [facility] Comment on above: The Pap smear [...] rRNA SHARI+probe Ql (Unsp spec) Negative Negative [facility] Culture, urineOrdered By: Aleksey Lovett on 06-14-2023 Bacteria identified Cx Nom (U) Escherichia coli [facility] Laboratory - Chemistry and C hemistry - challengeon 06-14-2023 Bilirubin Ql (U) Negative [facility] Glucose Ql (U) Negative [facility] Ketones Ql (U) Trace (5) [facility] pH (U) 5.0 [pH] [facility] Specific gravity (U) [Rel density] 1.030 [facility] Urobilinogen (U) [Mass/Vol] Negative [facility] Laboratory - CytologyOrdered By: Mahnaz Lovett on 06-14-2023 Pick Up Worker Cyto stain Nom (Cvx/Vag) [ID] Comment . [facility] Comment on above: Ada Guadarrama, Cyto technologist (ASCP) Pathologist Cyto stain Nom (Cvx/Vag) [ID] Comment . [facility] Comment on above: Sue Alcocer MD, P athologist Laboratory - Hematology and Cell countson 06-14-2023 Hemoglobin Ql (U) Large [facility] Laboratory - Microbiology an d Antimicrobial susceptibilityOrdered By: Mahnaz Lovett on 06-14-2023 N. gonorrhoeae DNA SHARI+probe Ql (Unsp spec) Negative Negative [facility] Comment on above: Performed at: - [address] [id number] Director: Shira Gardiner MD, Phone: [phone] Laboratory - Miscellaneous t estsOrdered By: Mahnaz Lovett on 06-14-2023 Service comment (Unsp spec) [Interp] Comment . [facility] Comment on above: This liquid based Th inPrep(R) pap test was screened withthe use of an image guided system. Service comment (Unsp spec) [Interp] . . [facility] Laboratory - Specimen inform ationon 06-14-2023 Clarity (U) Cloudy [facility] Color (U) DARK YELLOW [facility] Laboratory - Urinalysison Nitrite Ql (U) Positive [facility] Protein Ql (U) Positive [facility] No Panel InformationOrdered By: Mahnaz Lovett on 06-14-2023 Human Papillomavirus Screen Comment . [facility] Comment on above: The HPV DNA reflex c riteria were not met with this specimenresult therefore, no HPV testing was performed.Performed at: - [facility] [id number] Director: Shira Gardiner MD, Phone: [phone] Pathology report final diagnosis Narrative Comment . 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 R87.612 No Panel Informationon 06-14 Urine Leukocytes Positive [facility] Urine Non-Hemolyzed Blood Large [facility] Final Surgical Pathology Rep yazan 03-29-2023 Final Surgical Pathology Report . Pathology Reports Accession: Collected Date/Time: Received Date/Time: Pathologist: [id number] 03/26/2023 11:47 EDT 03/26/2023 14:14 EDT MD [...] All parts labelled with patient name and [id number] Received in formalin labeled biopsy of Mckinley's ulcer is 1 [place]-pink tissue fragment measuring 0.1 cm. TS-1 Radha Bhakta, Grossing Physical Medicine Specialist/ Dr. Flaquito Lanza, Pathologist Dictated by Radha Bhakta MICROSCOPIC DESCRIPTION: The microscopic examination is performed, except in the case of Gross Only. Electronically Signed by Pathology Report verified by [facility] JOANA RAYGOZA MD Sign out Date: 03/29/2023 16:19 Performing Lab: [facility], [address] [place] [address] Pathology Dept Disclaimer If ancillary studies were utilized, the following Laboratory Developed Test (LDT) disclaimer will apply: Under CLIA requirements, [facility] is qualified to perform high complexity testing. For all ancillary stains, positive and negative controls stain appropriately. Performance characteristics of immunohistochemical and chromogenic in-situ hybridization tests have been determined by [facility]. These tests are used for clinical purposes, They should not be regarded as investigational or for research. Normal [facility]) LABORATORYOrdered By: Nazario Obrien on 03-26-2023 Beta HCG ( test) Ql (U) Negative (03/26/23 9:43 AM) [facility] Work Phone: .Auto Diffon 03-13-2023 Basophil, Absolute 0.0 10 3/mcL Normal 0.0-0.3 [facility] ([place]) Comment on above: Performed By: #### C BC, ADIFF, ANEU, BMP, GFR #### [address] [address] Basophils/100 WBC (Bld) 0.7 % Normal 0.0-2.5 [facility] ([place]) Comment on above: Performed By: #### C BC, ADIFF, ANEU, BMP, GFR #### [address] [address] Eosinophil, Absolute 0.2 10 3/mcL Normal 0.0-0.7 [facility] ([place]) Comment on above: Performed By: #### C BC, ADIFF, ANEU, BMP, GFR #### [address] [address] Eosinophils/100 WBC (Bld) 2.8 % Normal 0.0-6.0 [facility] ([place]) Comment on above: Performed By: #### C BC, ADIFF, ANEU, BMP, GFR #### [address] [address] Lymphocyte, Absolute 2.3 10 3/mcL Normal 0.9-4.3 [facility] ([place]) Comment on above: Performed By: #### C BC, ADIFF, ANEU, BMP, GFR #### [address] [address] Lymphocytes/100 WBC (Bld) 41.6 % High 20.0-40.0 [facility] ([place]) Comment on above: Performed By: #### C BC, ADIFF, ANEU, BMP, GFR #### [address] [address] Monocyte, Absolute 0.3 10 3/mcL Normal 0.1-1.4 [facility] ([place]) Comment on above: Performed By: #### C BC, ADIFF, ANEU, BMP, GFR #### [address] [address] Monocytes/100 WBC (Bld) 4.7 % Normal 2.0-13.0 [facility] ([place]) Comment on above: Performed By: #### C BC, ADIFF, ANEU, BMP, GFR #### [address] [address] Neutrophils/100 WBC (Bld) 50.2 % Normal 50.0-75.0 [facility] ([place]) Comment on above: Performed By: #### C BC, ADIFF, ANEU, BMP, GFR #### [address] [address] .GFRon 03-13-2023 GFR Non- >60 Normal [facility] ([place]) Comment on above: Result Comment: GFR Population [...] C BC, ADIFF, ANEU, BMP, GFR #### [address] [address] GFR >60 Normal [facility] ([place]) Comment on above: Result Comment: GFR Population [...] C BC, ADIFF, ANEU, BMP, GFR #### [address] [address] .NEUABSon 03-13-2023 Neutrophil, Absolute 2.8 10 3/mcL Normal 2.3-8.1 [facility] ([place]) Comment on above: Performed By: #### C BC, ADIFF, ANEU, BMP, GFR #### [address] [address] BMPon 03-13-2023 BUN/Creatinine Ratio 27.1 ratio High 10.0-22.0 [facility] ([place]) Comment on above: Performed By: #### C BC, ADIFF, ANEU, BMP, GFR #### [place] [address] Calcium [Mass/Vol] 9.7 mg/dL Normal 8.7-10.4 [facility] ([place]) Comment on above: Performed By: #### C BC, ADIFF, ANEU, BMP, GFR #### [place] [address] Chloride [Moles/Vol] 113 mmol/L High 98-110 [facility] ([place]) Comment on above: Performed By: #### C BC, ADIFF, ANEU, BMP, GFR #### [place] [address] CO2 [Moles/Vol] 28 mmol/L Normal 22-32 [facility] ([place]) Comment on above: Performed By: #### C BC, ADIFF, ANEU, BMP, GFR #### [address] [address] Creatinine [Mass/Vol] 0.85 mg/dL Normal 0.50-1.20 [facility] ([place]) Comment on above: Performed By: #### C BC, ADIFF, ANEU, BMP, GFR #### [address] [address] Electrolyte Balance 3.0 mEq/L Low 4.0-15.0 [facility] ([place]) Comment on above: Performed By: #### C BC, ADIFF, ANEU, BMP, GFR #### [place] [address] Glucose [Mass/Vol] 84 mg/dL Normal 70-110 [facility] ([place]) Comment on above: Performed By: #### C BC, ADIFF, ANEU, BMP, GFR #### [place] [id number] Potassium [Moles/Vol] 4.4 mmol/L Normal 3.5-5.0 [facility] ([place]) Comment on above: Performed By: #### C BC, ADIFF, ANEU, BMP, GFR #### [place] [id number] Sodium [Moles/Vol] 144 mmol/L Normal 136-145 [facility] ([place]) Comment on above: Performed By: #### C BC, ADIFF, ANEU, BMP, GFR #### [place] [address] Urea nitrogen [Mass/Vol] 23.0 mg/dL High 8.0-22.0 [facility] ([place]) Comment on above: Performed By: #### C BC, ADIFF, ANEU, BMP, GFR #### [place] [id number] CBCon 03-13-2023 Erythrocyte distribution width (RBC) [Ratio] 12.7 % Normal 11.5-15.5 [facility] ([place]) Comment on above: Performed By: #### C BC, ADIFF, ANEU, BMP, GFR #### [place] [address] Hematocrit (Bld) [Volume fraction] 40.2 % Normal 34.0-46.0 [facility] ([place]) Comment on above: Performed By: #### C BC, ADIFF, ANEU, BMP, GFR #### [place] [address] Hgb 13.4 G/dL Normal 12.0-16.0 [facility] ([place]) Comment on above: Performed By: #### C BC, ADIFF, ANEU, BMP, GFR #### [place] [address] MCH (RBC) [Entitic mass] 30.2 pg Normal 27.0-33.0 [facility] ([place]) Comment on above: Performed By: #### C BC, ADIFF, ANEU, BMP, GFR #### [place] [address] MCHC 33.5 G/dL Normal 32.0-36.0 [facility] ([place]) Comment on above: Performed By: #### C BC, ADIFF, ANEU, BMP, GFR #### [place] [address] MCV (RBC) [Entitic vol] 90.3 fL Normal 80.0-99.0 [facility] ([place]) Comment on above: Performed By: #### C BC, ADIFF, ANEU, BMP, GFR #### [place] [address] Platelet 235 10 3/mcL Normal 150-450 [facility] ([place]) Comment on above: Performed By: #### C BC, ADIFF, ANEU, BMP, GFR #### [place] [address] Platelet mean volume (Bld) [Entitic vol] 9.1 fL Normal 6.6-10.5 [facility] ([place]) Comment on above: Performed By: #### C BC, ADIFF, ANEU, BMP, GFR #### [place] [address] RBC 4.45 10 6/mcL Normal 4.10-5.30 [facility] ([place]) Comment on above: Performed By: #### C BC, ADIFF, ANEU, BMP, GFR #### [place] [address] WBC 5.6 10 3/mcL Normal 4.5-10.8 [facility] ([place]) Comment on above: Performed By: #### C BC, ADIFF, ANEU, BMP, GFR #### [place] [address] LABORATORYOrdered By: SYSTEM SYSTEM on 03-13-2023 Basophils [...] Invalid Interpretation Code 0.0 - 0.7 10^3/mcL [facility] Workflow SS Eosinophils/100 WBC (Bld) 2.8 % Invalid Interpretation Code 0.0 - 6.0 % [facility] Workflow SS Erythrocyte distribution width (RBC) [Ratio] 12.7 % Invalid Interpretation Code 11.5 - 15.5 % [facility] Workflow SS GFR/1.73 sq M.predicted among blacks MDRD (S/P/Bld) [Vol rate/Area] ml/min/1.73sqm Invalid Interpretation Code Chemistry S Comment on above: Interpretive Data: [...] (S/P/Bld) [Vol rate/Area] ml/min/1.73sqm Invalid Interpretation Code AH Chemistry S Comment on above: Interpretive Data: [...] 4.5 - 10.8 10^3/mcL [facility] Workflow SS Non-Electroplating Technician Cytology Reporton Non-Electroplating Technician Cytology Report . Pathology Reports Accession: Collected Date/Time: Received Date/Time: Pathologist: [id number] 03/06/2023 09:06 EDT 03/07/2023 09:09 EDT MD JOANA RAYGOZA Non-Electroplating Technician Cytology Report CLINICAL INFORMATION: squamous cell metaplasia [...] Electronically Signed by Pathology Report verified by [facility] Screened by: DAVID Electronically signed by JOANA RAYGOZA MD Sign-Out Date: 03/08/2023 11:49 Performing Lab: [facility], [address] [place] [address] Pathology Dept Disclaimer If ancillary studies were utilized, the following Laboratory Developed Test (LDT) disclaimer will apply: Under CLIA requirements, [facility] is qualified to perform high complexity testing. For all ancillary stains, positive and negative controls stain appropriately. Performance characteristics of immunohistochemical and chromogenic in-situ hybridization tests have been determined by [facility]. These tests are used for clinical purposes, They should not be regarded as investigational or for research. Normal [facility] ([place]) URINE CULTUREon 02-12-2023 Bacteria identified Cx Nom (U) <10,000 CFU/ml Normal urogenital leonor [facility] Urinalysis complete panel (U )on 02-12-2023 Bilirubin Ql (U) Negative Negative [facility] Clarity (Unsp spec) Cloudy Abnormal Clear [facility] Color (U) Light [place] Abnormal Yellow [facility] Epithelial cells LM.HPF (Urine sed) [#/Area] Few Abnormal None Seen /HPF [facility] Glucose Test strip (U) [Mass/Vol] Negative Trace, Negative [facility] Hemoglobin Ql (U) 3+ Abnormal Negative, Trace [facility] Ketones Ql (U) Negative Trace, Negative [facility] Leukocyte esterase Test strip Ql (U) 500 [place]/uL Abnormal Negative, 25 [place]/uL [facility] Nitrite Ql (U) Negative Negative [facility] pH (U) 8.0 [pH] 5.0 - 8.0 [facility] Protein (U) [Mass/Vol] 3+ Abnormal Trace , Negative [facility] RBC LM.HPF (Urine sed) [#/Area] /[HPF] Abnormal 0-3 /HPF [facility] Specific gravity (U) [Rel density] 1.029 1.005 - 1.030 [facility] Urobilinogen Ql (U) Negative Negative [facility] WBC LM.HPF (Urine sed) [#/Area] /[HPF] Abnormal 0-5 /HPF [facility] TSH BLDon 01-29-2023 TSH Qn 0.687 m[IU]/L 0.270 - 4.200 mIU/L [facility] TSH SerPl-aCncon 01-29-2023 TSH Qn 0.687 m[IU]/L Normal 0.270-4.200 [facility] Comment on above: Order Comment: Jemima vyas Type: BLOOD SPECIMEN Ordering Facility: [facility] Address: [place] [address] Result Comment: If t he patient is , TSH reference range varies by gestational period: First Trimester (weeks 9-12): 0.180-2.990 mIU/L Second Trimester: 0.110-3.980 mIU/L Third Trimester: 0.480-4.710 mIU/L Suleman Chowdhury et al. A Practical Approach for the Verifications and Determination of Site- and Trimester-Specific Reference Intervals for Thyroid Function tests in . Thyroid, 2019:29:3:412-420. Sebas Zambrano, et al. 2017 Guidelines of the [place] [employer] for the Diagnosis and Management of Thyroid Disease during and the . Thyroid, 2017:27:3:315-389. Performed By: #### 2 132-9, 3016-3 #### [facility] CLIA [id number] [address] [place] [address] [place] VITAMIN B12 BLOODon 01-30-20 23 Cobalamin (Vitamin B12) [Mass/Vol] 602 pg/mL 232 - 1,245 pg/mL [facility] Vit B12 SerPl-mCncon 023 Cobalamin (Vitamin B12) [Mass/Vol] 602 pg/mL Normal 232-1245 [facility] Comment on above: Order Comment: Jemima vyas Type: BLOOD SPECIMEN Ordering Facility: [facility] Address: [place] [address] Performed By: #### 2 132-9, 3016-3 #### [facility] CLIA [id number] [address] [place] [address] [place] Absolute lymphocyte countOrd ered By: Dr. [place] on 01-26-2023 Lymphocytes Auto (Unsp spec) [#/Vol] 2.28 10*3/uL 0.83-4.51 [facility] Basophil percentageOrdered B y: Dr. [place] on 01-26-2023 Basophils/100 WBC (Bld) 0.5 % 0-1 [facility] Bilirubin [Mass/Vol] 0.60 mg/dL 0.20-1.00 [facility] Comment on above: For patients on eltr ombopag therapy, use of Dimension [place] TBIL is not recommended. Chloride [Moles/Vol] 107 mmol/L 98-107 [facility] Eosinophils/100 WBC (Bld) 0.8 % 0-5 [facility] Glucose [Mass/Vol] 95 mg/dL 74-106 [facility] Neutrophils (Bld) [#/Vol] 5.2 10*3/uL 2.0-7.7 [facility] Neutrophils/100 WBC (Bld) 65.2 % 47-70 [facility] Potassium [Moles/Vol] 3.9 mmol/L 3.5-5.1 [facility] Protein [Mass/Vol] 7.6 g/dL 6.4-8.2 [facility] Sodium [Moles/Vol] 141 mmol/L 136-145 [facility] WBC (Bld) [#/Vol] 7.9 10*3/uL 4.4-11.0 [facility] Basophil percentage 50-100 SEEN /hpf 0-5 [facility] Bilirubin Test strip Ql (U)O rdered By: Dr. [place] on 01-26-2023 Bilirubin Ql (U) Negative Negative [facility] Blood erythrocytes count (nu mber/volume)Ordered By: Dr. [place] on 01-26-2023 RBC (Bld) [#/Vol] 4.53 10*6/uL 4.2-5.4 [facility] Blood hemoglobin measurement (mass/volume)Ordered By: Dr. [place] on 01-26-2023 Hemoglobin (Bld) [Mass/Vol] 14.0 g/dL 12.0-15.0 [facility] Blood lymphocytes/100 leukoc ytesOrdered By: Dr. [place] on 01-26-2023 Lymphocytes/100 WBC (Bld) 28.8 % 19-41 [facility] Blood monocytes/100 leukocyt esOrdered By: Dr. [place] on 01-26-2023 Monocytes/100 WBC (Bld) 4.4 % 0-10 [facility] Blood platelet mean volumeOr dered By: Dr. [place] on 01-26-2023 Platelet mean volume (Bld) [Entitic vol] 10.5 fL 6.2-12.0 [facility] Determination of erythrocyte mean corpuscular volume (MCV)Ordered By: Dr. [place] on 01-26-2023 MCV (RBC) [Entitic vol] 89.4 fL 81-99 [facility] Hematocrit Auto (Bld) [Volum e fraction]Ordered By: Dr. [place] on 01-26-2023 Hematocrit (Bld) [Volume fraction] 40.5 % 37-47 [facility] Ketones Test strip Ql (U)Ord ered By: Dr. [place] on 01-26-2023 Ketones Ql (U) 15 mg/dl Negative [facility] Laboratory - Chemistry and C hemistry - challengeOrdered By: Dr. [place] on 01-26-2023 ALP [Catalytic activity/Vol] 66 U/L 45-117 [facility] ALT [Catalytic activity/Vol] 12 U/L 13-56 [facility] CO2 [Moles/Vol] 27.0 mmol/L 21.0-32.0 [facility] Globulin (S) [Mass/Vol] 3.4 g/dL 2.2-4.2 [facility] Magnesium [Mass/Vol] 2.3 mg/dL 1.6-2.6 [facility] Urea nitrogen/Creatinine [Mass ratio] 19.0 mg/mg 10-20 [facility] HCG ( test) Ql (U) Negative [facility] Comment on above: Very dilute urine sp ecimens, as indicated by a low specificgravity, may not contain senior customer service representative levels of hCG. If is still suspected, a first morning urinespecimen should be collected 48 hours later and tested. Laboratory - Hematology and Cell countsOrdered By: Dr. [place] on 01-26-2023 Erythrocyte distribution width (RBC) [Entitic vol] 38.6 fL 35.1-43.9 [facility] Erythrocyte distribution width (RBC) [Ratio] 11.9 % 11.6-14.6 [facility] Immature granulocytes/100 WBC (Bld) 0.300 % 0.0-0.9 [facility] Comment on above: IG% - Immature Granu locytes (promyelocytes, myelocytes and metamyelocytes) > 1% indicates that a LEFT SHIFT is Present. MCH (RBC) [Entitic mass] 30.9 pg 27.0-32.0 [facility] Nucleated RBC/100 WBC (Bld) [Ratio] 0 % 0-5 [facility] MCHC Auto (RBC) [Mass/Vol]Or dered By: Dr. [place] on 01-26-2023 MCHC (RBC) [Mass/Vol] 34.6 g/dL 32-36 [facility] Magnesium ammonium phosphate crystal detectionOrdered By: Dr. [place] on 01-26-2023 Triple phosphate crystals LM Ql (Urine sed) 1+ /hpf [facility] Mucus LM Ql (Urine sed)Order ed By: Dr. [place] on 01-26-2023 Mucus Ql (Urine sed) 0 SEEN /hpf [facility] Nitrite Test strip Ql (U)Ord ered By: Dr. [place] on 01-26-2023 Nitrite Ql (U) Negative Negative [facility] No Panel InformationOrdered By: Dr. [place] on 01-26-2023 Estimated Creatinine Clearance Calc 80.36 ml/min [facility] Estimated GFR (MDRD) Amer 113 mL/min >60 [facility] Comment on above: GFR Calc Estimated GFR (MDRD) Non-Af Amer 93 mL/min >60 [facility] Comment on above: Non- GFR Calc Platelets bldOrdered By: Dr. [place] on 01-26-2023 Platelets (Bld) [#/Vol] 248 10*3/uL 150-450 [facility] Protein Test strip Ql (U)Ord ered By: Dr. [place] on 01-26-2023 Protein Ql (U) 500 mg/dl Negative [facility] Serum or plasma albumin tono urement (mass/volume)Ordered By: Dr. [place] on 01-26-2023 Albumin [Mass/Vol] 4.2 g/dL 3.2-5.0 [facility] Serum or plasma albumin/glob ulin mass ratioOrdered By: Dr. [place] on 01-26-2023 Albumin/Globulin [Mass ratio] 1.2 {ratio} 0.9-2.4 [facility] Serum or plasma calcium tono urement (mass/volume)Ordered By: Dr. [place] on 01-26-2023 Calcium [Mass/Vol] 9.0 mg/dL 8.5-10.1 [facility] Serum or plasma creatinine m easurement (mass/volume)Ordered By: Dr. [place] on 01-26-2023 Creatinine [Mass/Vol] 0.79 mg/dL 0.55-1.02 [facility] Comment on above: The validity of the calculated GFR & GFRAA in patients over 70 years has not been determined. Clinical correlation is essential. Serum or plasma urea nitroge n measurement (mass/volume)Ordered By: Dr. [place] on 01-26-2023 Urea nitrogen [Mass/Vol] 15 mg/dL 7-18 [facility] Squamous epithelial cells de tection in urine sediment by light microscopyOrdered By: Dr. [place] on 01-26-2023 Epithelial cells.squamous LM Ql (Urine sed) 5-10 SEEN /hpf 5-10 [facility] Thin prep Papanicolaou smear with manual screeningOrdered By: Dr. [place] on 01-26-2023 Thin prep Papanicolaou smear with manual screening 10 U/L 15-37 [facility] Thin prep Papanicolaou smear with manual screening 7 5-15 [facility] Urine blood detectionOrdered By: Dr. [place] on 01-26-2023 RBC Ql (U) 250 /ul Negative [facility] RBC Ql (U) > 100 SEEN /hpf 0-5 [facility] Urine clarityOrdered By: Dr. [place] on 01-26-2023 Clarity (U) Cloudy Clear [facility] Urine color determinationOrd ered By: Dr. [place] on 01-26-2023 Color (U) Yellow Yellow [facility] Urine glucose detectionOrder ed By: Dr. [place] on 01-26-2023 Glucose Ql (U) Normal mg/dl Normal [facility] Urine leukocyte esterase det ection by dipstickOrdered By: Dr. [place] on 01-26-2023 Leukocyte esterase Test strip Ql (U) 500 /ul Negative [facility] Urine pHOrdered By: Dr. Law muñoz on 01-26-2023 pH (U) 8.0 [pH] 5.0 - 8.0 [facility] Urine sediment bacteria coun t by microscopy (number/high power field)Ordered By: Dr. [place] on 01-26-2023 Bacteria LM.HPF (Urine sed) [#/Area] 2 /[HPF] None Seen [facility] Urine specific gravity measu rementOrdered By: Dr. [place] on 01-26-2023 Specific gravity (U) [Rel density] 1.015 1.002-1.030 [facility] Urobilinogen Auto test strip Ql (U)Ordered By: Dr. [place] on 01-26-2023 Urobilinogen Ql (U) Normal mg/dl Normal [facility] Basophil percentageOrdered B y: Dr. Lewis on 09-06-2022 Bilirubin [Mass/Vol] 0.70 mg/dL 0.20-1.00 [facility] Comment on above: For patients on eltr ombopag therapy, use of Dimension [place] TBIL is not recommended. Protein [Mass/Vol] 7.3 g/dL 6.4-8.2 [facility] WBC (Bld) [#/Vol] 5.3 10*3/uL 4.4-11.0 [facility] Blood erythrocytes count (nu mber/volume)Ordered By: Dr. Lewis on 09-06-2022 RBC (Bld) [#/Vol] 4.24 10*6/uL 4.2-5.4 [facility] Blood hemoglobin measurement (mass/volume)Ordered By: Dr. Lewis on 09-06-2022 Hemoglobin (Bld) [Mass/Vol] 13.0 g/dL 12.0-15.0 [facility] Blood platelet mean volumeOr dered By: Dr. Lewis on 09-06-2022 Platelet mean volume (Bld) [Entitic vol] 10.5 fL 6.2-12.0 [facility] Determination of erythrocyte mean corpuscular volume (MCV)Ordered By: Dr. Lewis on 09-06-2022 MCV (RBC) [Entitic vol] 91.3 fL 81-99 [facility] Direct bilirubinOrdered By: Dr. Lewis on 09-06-2022 Bilirubin.direct [Mass/Vol] 0.11 mg/dL 0.00-0.30 [facility] Hematocrit Auto (Bld) [Volum e fraction]Ordered By: Dr. Lewis on 09-06-2022 Hematocrit (Bld) [Volume fraction] 38.7 % 37-47 [facility] INR in Blood by Coagulation assayOrdered By: Dr. Lewis on 09-06-2022 INR Coag (Bld) [Relative time] 1.1 {INR} [facility] Laboratory - Chemistry and C hemistry - challengeOrdered By: Dr. Lewis on 09-06-2022 ALP [Catalytic activity/Vol] 60 U/L 45-117 [facility] ALT [Catalytic activity/Vol] 15 U/L 13-56 [facility] Globulin (S) [Mass/Vol] 3.4 g/dL 2.2-4.2 [facility] Laboratory - Chemistry and C hemistry - challengeOrdered By: Dr. Schilling on 09-06-2022 HCG ( test) Ql (U) Negative [facility] Comment on above: Very dilute urine sp ecimens, as indicated by a low specificgravity, may not contain senior customer service representative levels of hCG. If is still suspected, a first morning urinespecimen should be collected 48 hours later and tested. Laboratory - CoagulationOrde red By: Dr. Lewis on 09-06-2022 aPTT Coag (Bld) [Time] 33.7 s 24.1-36.2 [facility] PT Coag (PPP) [Time] 14.1 s 11.7-14.9 [facility] Laboratory - Hematology and Cell countsOrdered By: Dr. Lewis on 09-06-2022 Erythrocyte distribution width (RBC) [Entitic vol] 40.5 fL 35.1-43.9 [facility] Erythrocyte distribution width (RBC) [Ratio] 12.1 % 11.6-14.6 [facility] MCH (RBC) [Entitic mass] 30.7 pg 27.0-32.0 [facility] MCHC Auto (RBC) [Mass/Vol]Or dered By: Dr. Lewis on 09-06-2022 MCHC (RBC) [Mass/Vol] 33.6 g/dL 32-36 [facility] Platelets bldOrdered By: Dr. Lewis on 09-06-2022 Platelets (Bld) [#/Vol] 228 10*3/uL 150-450 [facility] Serum or plasma albumin tono urement (mass/volume)Ordered By: Dr. Lewis on 09-06-2022 Albumin [Mass/Vol] 3.9 g/dL 3.2-5.0 [facility] Thin prep Papanicolaou smear with manual screeningOrdered By: Dr. Lewis on 09-06-2022 Thin prep Papanicolaou smear with manual screening 13 U/L 15-37 [facility] Absolute lymphocyte counton 04-05-2022 Lymphocytes Auto (Unsp spec) [#/Vol] 2.73 10*3/uL 0.83-4.51 [facility] Work Phone: Basophil percentageon 2021 Basophils/100 WBC (Bld) 0.6 % 0-1 [facility] Work Phone: Eosinophils/100 WBC (Bld) 1.6 % 0-5 [facility] Work Phone: Neutrophils (Bld) [#/Vol] 3.6 10*3/uL 2.0-7.7 [facility] Work Phone: Neutrophils/100 WBC (Bld) 52.4 % 47-70 [facility] Work Phone: [phone] WBC (Bld) [#/Vol] 6.8 10*3/uL 4.4-11.0 [facility] Work Phone: Blood erythrocytes count (nu mber/volume)on 04-05-2022 RBC (Bld) [#/Vol] 4.28 10*6/uL 4.2-5.4 [facility] Work Phone: Blood hemoglobin measurement (mass/volume)on 04-05-2022 Hemoglobin (Bld) [Mass/Vol] 13.1 g/dL 12.0-15.0 [facility] Work Phone: Blood lymphocytes/100 leukoc yteson 04-05-2022 Lymphocytes/100 WBC (Bld) 39.9 % 19-41 [facility] Work Phone: Blood monocytes/100 leukocyt eson 04-05-2022 Monocytes/100 WBC (Bld) 5.4 % 0-10 [facility] Work Phone: Blood platelet mean volumeon 04-05-2022 Platelet mean volume (Bld) [Entitic vol] 10.7 fL 6.2-12.0 [facility] Work Phone: Determination of erythrocyte mean corpuscular volume (MCV)on 04-05-2022 MCV (RBC) [Entitic vol] 91.6 fL 81-99 [facility] Work Phone: Hematocrit Auto (Bld) [Volum e fraction]on 04-05-2022 Hematocrit (Bld) [Volume fraction] 39.2 % 37-47 [facility] Work Phone: Laboratory - Hematology and Cell countson 04-05-2022 Erythrocyte distribution width (RBC) [Entitic vol] 41.1 fL 35.1-43.9 [facility] Work Phone: Erythrocyte distribution width (RBC) [Ratio] 12.4 % 11.6-14.6 [facility] Work Phone: Immature granulocytes/100 WBC (Bld) 0.100 % 0.0-0.9 [facility] Work Phone: Comment on above: IG% - Immature Granu locytes (promyelocytes, myelocytes and metamyelocytes) > 1% indicates that a LEFT SHIFT is Present. MCH (RBC) [Entitic mass] 30.6 pg 27.0-32.0 [facility] Work Phone: Nucleated RBC/100 WBC (Bld) [Ratio] 0 % 0-5 [facility] Work Phone: MCHC Auto (RBC) [Mass/Vol]on 04-05-2022 MCHC (RBC) [Mass/Vol] 33.4 g/dL 32-36 [facility] Work Phone: No Panel Informationon 04-05 Thyroid Stimulating Hormone (TSH) 1.54 uIU/mL 0.358-3.74 [facility] Work Phone: Platelets bldon 04-05-2022 Platelets (Bld) [#/Vol] 239 10*3/uL 150-450 [facility] Work Phone: Culture, urineon 09-28-2021 Bacteria identified Cx Nom (U) Presumptive E. coli [facility] Work Phone: Laboratory - Chemistry and C hemistry - challengeon 09-28-2021 Bilirubin Ql (U) Negative [facility] Work Phone: Glucose Ql (U) Negative [facility] Work Phone: Ketones Ql (U) Trace (5) [facility] Work Phone: Specific gravity (U) [Rel density] 1.025 [facility] Work Phone: Urobilinogen (U) [Mass/Vol] Negative [facility] Work Phone: Laboratory - Hematology and Cell countson 09-28-2021 Hemoglobin Ql (U) Large [facility] Work Phone: Laboratory - Specimen inform ationon 09-28-2021 Clarity (U) Hazy [facility] Work Phone: Color (U) STRAW [facility] Work Phone: Laboratory - Urinalysison Nitrite Ql (U) Positive [facility] Work Phone: Protein Ql (U) Positive [facility] Work Phone: No Panel Informationon 09-28 Urine Leukocytes Positive [facility] Work Phone: Urine Non-Hemolyzed Blood [facility] Work Phone: HCG,Totalon 10-07-2019 HCG Qn 531.0 m[IU]/mL Normal [facility] Comment on above: Result Comment: Male [...] suspected. Performed By: #### L HCG #### [facility] [address] [address] Urinalysis Routineon 020 Appearance (U) 3+ (CLOUDY) Normal [facility] Comment on above: Performed By: #### L URIN #### [place] [address] Bacteria LM.HPF (Urine sed) [#/Area] MANY Abnormal None [facility] Comment on above: Performed By: #### L URIN #### [place] [address] Bilirubin Urine Negative Normal Negative [facility] Comment on above: Performed By: #### L URIN #### [place] [address] Color (U) YELLOW Normal [facility] Comment on above: Performed By: #### L URIN #### [place] [address] Ep Cells Urine 6-12 Abnormal 0-5 [facility] Comment on above: Performed By: #### L URIN #### [place] [address] Glucose Ql (U) Negative Normal Negative [facility] Comment on above: Performed By: #### L URIN #### [place] [address] Hemoglobin,Urine 2+ Abnormal Negative [facility] [employer] [facility] Comment on above: Performed By: #### L URIN #### [place] [address] Ketone Urine Negative Normal Negative [facility] Comment on above: Performed By: #### L URIN #### [place] [address] Leukocytes Esterase 3+ Abnormal Negative [facility] Comment on above: Performed By: #### L URIN #### [place] [address] Nitrites Urine Positive Abnormal Negative [facility] Comment on above: Performed By: #### L URIN #### [address] [address] pH (U) 7.0 [pH] Normal 5.0-8.0 [facility] Comment on above: Performed By: #### L URIN #### [place] [address] Protein (U) [Mass/Vol] 2+ Abnormal Negative [facility] Comment on above: Performed By: #### L URIN #### [place] [address] RBC LM.HPF (Urine sed) [#/Area] 13-20 Abnormal 0-3 [facility] Comment on above: Performed By: #### L URIN #### [place] [address] Specific [place], Ur >=1.030 Normal 1.005-1.030 [facility] Comment on above: Performed By: #### L URIN #### [place] [address] Urobilinogen,Ur 0.2 EU/dL Normal 0.2-1.0 [facility] Comment on above: Performed By: #### L URIN #### [place] [address] WBC LM.HPF (Urine sed) [#/Area] /[HPF] Abnormal 0-5 [facility] Comment on above: Performed By: #### L URIN #### [place] [address] Urine HCG, Qual.on 0 Beta HCG ( test) Ql (U) Positive Normal Negative [facility] Comment on above: Performed By: #### L HCG2 #### [facility] [address] [address] Culture, urine Bacteria identified Cx Nom (U) Presumptive E. coli [facility] Work Phone: Vital Signs Date Time Vital Sign Value Performing Clinician Facility 03-24-2025 13:22-0400 Body height 157.[address] Elkin Oliva MD Work Phone: 5(267)503-195396 [place] [address] 03-24-2025 13:19-0400 Body mass index (BMI) [Ratio] 21.2 kg/m2 Dr. Elkin Oliva MD Work Phone: 0(777)549-599996 [place] [address] 03-24-2025 13:19-0400 Body weight 52.[address] Elkin Oliva MD Work Phone: 3(087)025-088696 [place] [address] 03-24-2025 13:19-0400 Diastolic blood pressure 75 mm[Hg] Dr. Elkin Oliva MD Work Phone: 1(845)060-650796 [place] [address] 03-24-2025 13:19-0400 Systolic blood pressure 126 mm[Hg] Dr. Elkin Oliva MD Work Phone: 7(558)255-134096 [place] [address] 03-22-2025 20:38-0400 Body temperature 98 [degF] Dr. Elkin Oliva MD Work Phone: 3(861)093-997696 [place] [address] 03-22-2025 20:38-0400 Diastolic blood pressure 70 mm[Hg] Dr. Elkin Oliva MD Work Phone: 1(113)778-956396 [place] [address] 03-22-2025 20:38-0400 Heart rate 78 /min Dr. Elkin Oliva MD Work Phone: 2(089)962-522196 [place] [address] 03-22-2025 20:38-0400 Respiratory rate 20 /min Dr. Elkin Oliva MD Work Phone: 2(063)830-239496 [place] [address] 03-22-2025 20:38-0400 SaO2% (BldA) [Mass fraction] 100 % Dr. Elkin Oliva MD Work Phone: 6(095)266-955196 [place] [address] 03-22-2025 20:38-0400 Systolic blood pressure 118 mm[Hg] Dr. Elkin Oliva MD Work Phone: 8(318)465-271796 [place] [address] 03-22-2025 16:26-0400 Body height 157.[address] Elkin Oliva MD Work Phone: 8(544)513-845796 [place] [address] 03-22-2025 16:26-0400 Body mass index (BMI) [Ratio] 21 kg/m2 Dr. Elkin Oliva MD Work Phone: 2(238)692-932396 [place] [address] 03-22-2025 16:26-0400 Body weight 52.[address] Elkin Oliva MD Work Phone: 8(629)872-542496 [place] [address] 03-05-2025 10:59-0400 Body height 157.[address] Elkin Oliva MD Work Phone: 6(718)467-563596 [place] [address] 03-05-2025 10:59-0400 Body mass index (BMI) [Ratio] 19.2 kg/m2 Dr. Elkin Oliva MD Work Phone: 1(352)909-816496 [place] [address] 03-05-2025 10:59-0400 Body temperature 89.3 [degF] Dr. Elkin Oliva MD Work Phone: 2(835)420-183196 [place] [address] 03-05-2025 10:59-0400 Body weight 47.[address] Elkin Oliva MD Work Phone: 9(990)297-760396 [place] [address] 03-05-2025 10:59-0400 Diastolic blood pressure 78 mm[Hg] Dr. Elkin Oliva MD Work Phone: 1(524)195-733296 [place] [address] 03-05-2025 10:59-0400 Systolic blood pressure 120 mm[Hg] Dr. Elkin Oliva MD Work Phone: 1(643)868-955896 [place] [address] 01-11-2025 14:02-0400 Body height 157.[address] Elkin Oliva MD Work Phone: 2(326)422-061096 [place] [address] 01-11-2025 14:02-0400 Body mass index (BMI) [Ratio] 21.2 kg/m2 Dr. Elkin Oliva MD Work Phone: 5(021)284-436033 [place] [address] 01-11-2025 14:02-0400 Body weight 52.[address] Elkin Oliva MD Work Phone: 5(519)676-981896 [place] [address] 01-11-2025 14:02-0400 Diastolic blood pressure 83 mm[Hg] Dr. Elkin Oliva MD Work Phone: 3(048)080-658196 [place] [address] 01-11-2025 14:02-0400 Systolic blood pressure 128 mm[Hg] Dr. Elkin Oliva MD Work Phone: 2(600)989-062196 [place] [address] 11-27-2024 13:40-0400 Body mass index (BMI) [Ratio] 21.7 kg/m2 Dr. Elkin Oliva MD Work Phone: 2(418)271-952096 [place] [address] 11-27-2024 13:40-0400 Body weight 53.[address] Elkin Oliva MD Work Phone: 3(299)564-603896 [place] [address] 11-27-2024 13:40-0400 Diastolic blood pressure 80 mm[Hg] Dr. Elkin Oliva MD Work Phone: 1(199)489-314396 [place] [address] 11-27-2024 13:40-0400 Systolic blood pressure 124 mm[Hg] Dr. Elkin Oliva MD Work Phone: 9(989)393-791796 [place] [address] 11-02-2024 11:10-0400 Body mass index (BMI) [Ratio] 20.97 kg/m2 Rod Rosales SECURITY CONTROL ASSESSOR.DIRECTOR SALES SUPPORT Work Phone: [facility] 11-02-2024 11:10-0400 Body weight 52 kg Rod Rosales SECURITY CONTROL ASSESSOR.DIRECTOR SALES SUPPORT Work Phone: [facility] 11-02-2024 11:10-0400 Diastolic blood pressure 72 mm[Hg] Rod Rosales SECURITY CONTROL ASSESSOR.DIRECTOR SALES SUPPORT Work Phone: [facility] 11-02-2024 11:10-0400 Heart rate 88 /min Rod Rosales SECURITY CONTROL ASSESSOR.DIRECTOR SALES SUPPORT Work Phone: [facility] 11-02-2024 11:10-0400 Respiratory rate 16 /min Rod Carrascos SECURITY CONTROL ASSESSOR.DIRECTOR SALES SUPPORT Work Phone: [facility] 11-02-2024 11:10-0400 Systolic blood pressure 110 mm[Hg] Rod Rosales SECURITY CONTROL ASSESSOR.DIRECTOR SALES SUPPORT Work Phone: [facility] 10-19-2024 08:38-0400 Body mass index (BMI) [Ratio] 21 kg/m2 Dr. Elkin Oliva MD Work Phone: [facility] 10-19-2024 08:38-0400 Body weight 52.[address] Elkin Oliva MD Work Phone: [facility] 10-19-2024 08:38-0400 Diastolic blood pressure 81 mm[Hg] Dr. Elkin Oliva MD Work Phone: [facility] 10-19-2024 08:38-0400 Systolic blood pressure 114 mm[Hg] Dr. Elkin Oliva MD Work Phone: [facility] 01-06-2024 17:18-0400 Body mass index (BMI) [Ratio] 19.52 kg/m2 Elkin Oliva MD Work Phone: [facility] 01-06-2024 17:18-0400 Body temperature 98.71 [degF] Elkin Oliva MD Work Phone: [facility] 01-06-2024 17:18-0400 Body weight 48.4 kg Elkin Oliva MD Work Phone: [facility] 01-06-2024 17:18-0400 Diastolic blood pressure 62 mm[Hg] Elkin Oliva MD Work Phone: [facility] 01-06-2024 17:18-0400 Heart rate 109 /min Elkin Oliva MD Work Phone: [facility] 01-06-2024 17:18-0400 Respiratory rate 18 /min Elkin Oliva MD Work Phone: [facility] 01-06-2024 17:18-0400 SaO2% (BldA) [Mass fraction] 99 % Elkin Oliva MD Work Phone: [facility] 01-06-2024 17:18-0400 Systolic blood pressure 96 mm[Hg] Elkin Oliva MD Work Phone: [facility] 09-26-2023 09:57-0500 Body temperature 97.4 [degF] Dr. Elkin Oliva Work Phone: [facility] 09-26-2023 09:57-0500 Diastolic blood pressure 78 mm[Hg] Dr. Elkin Oliva Work Phone: 1(037)110-816133 [place] [address] 09-26-2023 09:57-0500 Heart rate 79 /min Dr. Elkin Oliva Work Phone: 4(594)142-527396 [place] [address] 09-26-2023 09:57-0500 Respiratory rate 16 /min Dr. Elkin Oliva Work Phone: 7(887)869-275033 [place] [address] 09-26-2023 09:57-0500 SaO2% (BldA) [Mass fraction] 100 % Dr. Elkin Oliva Work Phone: 9(739)949-373433 [place] [address] 09-26-2023 09:57-0500 Systolic blood pressure 120 mm[Hg] Dr. Elkin Oliva Work Phone: 3(850)072-669633 [place] [address] 09-26-2023 07:01-0500 Body height 157.[address] Elkin Oliva Work Phone: 5(522)047-922833 [place] [address] 09-26-2023 07:01-0500 Body mass index (BMI) [Ratio] 18.4 kg/m2 Dr. Elkin Oliva Work Phone: 3(209)499-690733 [place] [address] 09-26-2023 07:01-0500 Body weight 45.[address] Elkin Oliva Work Phone: 0(387)325-027333 [place] [address] 08-28-2023 19:48-0500 Diastolic blood pressure 66 mm[Hg] Dr. Elkin Oliva Work Phone: 4(999)462-795096 [place] [address] 08-28-2023 19:48-0500 Heart rate 68 /min Dr. Elkin Oliva Work Phone: 8(462)549-380196 [place] [address] 08-28-2023 19:48-0500 Respiratory rate 17 /min Dr. Elkin Oliva Work Phone: 4(426)782-152796 [place] [address] 08-28-2023 19:48-0500 SaO2% (BldA) [Mass fraction] 99 % Dr. Elkin Oliva Work Phone: 4(275)452-297096 [place] [address] 08-28-2023 19:48-0500 Systolic blood pressure 111 mm[Hg] Dr. Elkin Oliva Work Phone: 9(552)915-303896 [place] [address] 08-28-2023 13:53-0500 Body height 157.[address] Elkin Oliva Work Phone: 2(810)044-267196 [place] [address] 08-28-2023 13:53-0500 Body mass index (BMI) [Ratio] 19 kg/m2 Dr. Elkin Oliva Work Phone: 5(878)430-958396 [place] [address] 08-28-2023 13:53-0500 Body temperature 98.4 [degF] Dr. Elkin Oliva Work Phone: 0(425)937-241896 [place] [address] 08-28-2023 13:53-0500 Body weight 47.[address] Elkin Oliva Work Phone: 0(190)696-872496 [place] [address] 07-25-2023 13:55-0500 Body height 157.[address] Elkin Oliva Work Phone: 6(525)473-806396 [place] [address] 07-25-2023 13:52-0500 Body mass index (BMI) [Ratio] 17.9 kg/m2 Dr. Elkin Oliva Work Phone: 9(227)870-204896 [place] [address] 07-25-2023 13:52-0500 Body weight 44.[address] Elkin Oliva Work Phone: 5(138)618-401996 [address] [place] [id number] 07-25-2023 13:52-0500 Diastolic blood pressure 68 mm[Hg] Dr. Elkin Oliva Work Phone: 7(259)539-399996 [place] [address] 07-25-2023 13:52-0500 Systolic blood pressure 113 mm[Hg] Dr. Elkin Oliva Work Phone: 0(567)237-405396 [place] [address] 07-19-2023 16:23-0500 Diastolic blood pressure 74 mm[Hg] Dr. Elkin Oliva Work Phone: 4(691)344-222796 [place] [address] 07-19-2023 16:23-0500 Heart rate 76 /min Dr. Elkin Oliva Work Phone: 9(844)343-890596 [place] [address] 07-19-2023 16:23-0500 Respiratory rate 15 /min Dr. Elkin Oliva Work Phone: 9(222)234-621396 [place] [address] 07-19-2023 16:23-0500 SaO2% (BldA) [Mass fraction] 98 % Dr. Elkin Oliva Work Phone: 6(536)639-300696 [place] [address] 07-19-2023 16:23-0500 Systolic blood pressure 125 mm[Hg] Dr. Elkin Oliva Work Phone: 1(797)247-773296 [place] [address] 07-19-2023 13:50-0500 Body height 157.[address] Elkin Oliva Work Phone: 8(667)305-533596 [place] [address] 07-19-2023 13:50-0500 Body mass index (BMI) [Ratio] 17.9 kg/m2 Dr. Elkin Oliva Work Phone: 7(297)623-406296 [place] [address] 07-19-2023 13:50-0500 Body temperature 98.6 [degF] Dr. Elkin Oliva Work Phone: 9(940)722-979796 [place] [address] 07-19-2023 13:50-0500 Body weight 44.[address] Elkin Oliva Work Phone: 6(127)382-675096 [place] [address] 06-14-2023 09:41-0500 Body height 157.[address] Elkin Oliva Work Phone: 3(440)346-510596 [place] [address] 06-14-2023 09:41-0500 Body mass index (BMI) [Ratio] 18.3 kg/m2 Dr. Elkin Oliva Work Phone: [facility] 06-14-2023 09:41-0500 Body weight 45.[address] Elkin Oliva Work Phone: [facility] 06-14-2023 09:41-0500 Diastolic blood pressure 75 mm[Hg] Dr. Elkin Oliva Work Phone: [facility] 06-14-2023 09:41-0500 Systolic blood pressure 113 mm[Hg] Dr. Elkin Oliva Work Phone: [facility] 03-26-2023 13:30-0400 Body temperature 96.62 [degF] JJ VELÁZQUEZ MD [facility] 03-26-2023 13:30-0400 Diastolic Blood Pressure Non-Invasive 80 1 JJ VELÁZQUEZ MD [facility] 03-26-2023 13:30-0400 Heart rate 64 /min JJ VELÁZQUEZ MD [facility] 03-26-2023 13:30-0400 Respiratory rate 18 /min JJ VELÁZQUEZ MD [facility] 03-26-2023 13:30-0400 Systolic Blood Pressure Non-Invasive 117 1 JJ VELÁZQUEZ MD [facility] 03-26-2023 13:13-0400 Body temperature 97.7 [degF] JJ VELÁZQUEZ MD [facility] 03-26-2023 13:13-0400 Diastolic Blood Pressure Non-Invasive 83 1 JJ VELÁZQUEZ MD [facility] 03-26-2023 13:13-0400 Heart rate 61 /min JJ VELÁZQUEZ MD [facility] 03-26-2023 13:13-0400 Mean blood pressure 93 mm[Hg] JJ VELÁZQUEZ MD [facility] 03-26-2023 13:13-0400 Respiratory rate 16 /min JJ VELÁZQUEZ MD [facility] 03-26-2023 13:13-0400 Systolic Blood Pressure Non-Invasive 112 1 JJ VELÁZQUEZ MD [facility] 03-26-2023 12:47-0400 Diastolic Blood Pressure Non-Invasive 69 1 JJ VELÁZQUEZ MD [facility] 03-26-2023 12:47-0400 Heart rate 81 /min JJ VELÁZQUEZ MD [facility] 03-26-2023 12:47-0400 Mean blood pressure 79 mm[Hg] JJ VELÁZQUEZ MD [facility] 03-26-2023 12:47-0400 Respiratory rate 16 /min JJ VELÁZQUEZ MD [facility] 03-26-2023 12:47-0400 Systolic Blood Pressure Non-Invasive 108 1 JJ VELÁZQUEZ MD [facility] 03-26-2023 12:42-0400 Heart rate 81 /min JJ VELÁZQUEZ MD [facility] 03-26-2023 12:42-0400 Mean blood pressure 91 mm[Hg] JJ VEÁLZQUEZ MD [facility] 03-26-2023 12:12-0400 Body temperature 96.8 [degF] JJ VELÁZQUEZ MD [facility] 03-26-2023 12:05-0400 Respiratory Rate - Anes 0 br/min JJ VELÁZQUEZ MD [facility] 03-26-2023 12:00-0400 Respiratory Rate - Anes 11 br/min JJ VELÁZQUEZ MD [facility] 03-26-2023 11:55-0400 Body temperature 94.35 [degF] JJ VELÁZQUEZ MD [facility] 03-26-2023 11:55-0400 Respiratory Rate - Anes 16 br/min JJ VELÁZQUEZ MD [facility] 03-26-2023 11:50-0400 Body temperature 94.91 [degF] JJ VELÁZQUEZ MD [facility] 03-26-2023 11:45-0400 Body temperature 95.77 [degF] JJ VELÁZQUEZ MD [facility] 03-26-2023 09:38-0400 Body height 157.5 cm JJ VELÁZQUEZ MD [facility] 03-26-2023 09:38-0400 Body weight 47.6 kg JJ VELÁZQUEZ MD [facility] 03-26-2023 09:38-0400 Heart rate 66 /min JJ VELÁZQUEZ MD [facility] 03-25-2023 14:30-0400 Body temperature 98.71 [degF] Elkin Oliva MD Work Phone: [facility] 03-25-2023 14:30-0400 Body weight 45.81 kg Elkin Oliva MD Work Phone: [facility] 03-25-2023 14:30-0400 Diastolic blood pressure 60 mm[Hg] Elkin Oliva MD Work Phone: [facility] 03-25-2023 14:30-0400 Heart rate 87 /min Elkin Oliva MD Work Phone: [facility] 03-25-2023 14:30-0400 Respiratory rate 18 /min Elkin Oliva MD Work Phone: [facility] 03-25-2023 14:30-0400 SaO2% (BldA) [Mass fraction] 97 % Elkin Oliva MD Work Phone: [facility] 03-25-2023 14:30-0400 Systolic blood pressure 104 mm[Hg] Elkin Oliva MD Work Phone: [facility] 03-13-2023 09:11-0400 Body height 158 cm JJ VELÁZQUEZ MD [facility] 03-13-2023 09:11-0400 Body temperature 98.06 [degF] JJ VELÁZQUEZ MD [facility] 03-13-2023 09:11-0400 Body weight 46.9 kg JJ VELÁZQUEZ MD [facility] 03-13-2023 09:11-0400 Diastolic Blood Pressure Non-Invasive 75 1 JJ VELÁZQUEZ MD [facility] 03-13-2023 09:11-0400 Heart rate 86 /min JJ VELÁZQUEZ MD [facility] 03-13-2023 09:11-0400 Systolic Blood Pressure Non-Invasive 111 1 JJ VELÁZQUEZ MD [facility] 03-07-2023 16:31-0400 Body height 157.5 cm Radames Worthy MD Work Phone: [facility] 03-07-2023 16:31-0400 Body weight 47.45 kg Radames Worthy MD Work Phone: [facility] 03-07-2023 16:31-0400 Diastolic blood pressure 58 mm[Hg] Radames Worthy MD Work Phone: [facility] 03-07-2023 16:31-0400 Heart rate 92 /min Radames Worthy MD Work Phone: [facility] 03-07-2023 16:31-0400 SaO2% (BldA) [Mass fraction] 100 % Radames Worthy MD Work Phone: [facility] 03-07-2023 16:31-0400 Systolic blood pressure 106 mm[Hg] Radames Worthy MD Work Phone: [facility] 01-29-2023 15:25-0400 Body temperature 97.81 [degF] Elkin Oliva MD Work Phone: [facility] 01-29-2023 15:25-0400 Body weight 47.63 kg Elkin Oliva MD Work Phone: [facility] 01-29-2023 15:25-0400 Diastolic blood pressure 62 mm[Hg] Elkin Oliva MD Work Phone: [facility] 01-29-2023 15:25-0400 Heart rate 79 /min Elkin Oliva MD Work Phone: [facility] 01-29-2023 15:25-0400 Respiratory rate 18 /min Elkin Oliva MD Work Phone: [facility] 01-29-2023 15:25-0400 SaO2% (BldA) [Mass fraction] 97 % Elkin Oliva MD Work Phone: [facility] 01-29-2023 15:25-0400 Systolic blood pressure 112 mm[Hg] Elkin Oliva MD Work Phone: [facility] 01-29-2023 09:48-0400 Body height 157.5 cm Radames Worthy MD Work Phone: [facility] 01-29-2023 09:48-0400 Body weight 46.27 kg Radames Worthy MD Work Phone: [facility] 01-29-2023 09:48-0400 Diastolic blood pressure 73 mm[Hg] Radames Worthy MD Work Phone: [facility] 01-29-2023 09:48-0400 Heart rate 108 /min Radames Worthy MD Work Phone: [facility] 01-29-2023 09:48-0400 Respiratory rate 16 /min Radames Worthy MD Work Phone: [facility] 01-29-2023 09:48-0400 SaO2% (BldA) [Mass fraction] 98 % Radames Worthy MD Work Phone: [facility] 01-29-2023 09:48-0400 Systolic blood pressure 122 mm[Hg] Radames Worthy MD Work Phone: [facility] 01-26-2023 08:27-0400 Body height 157.48 [facility] 01-26-2023 08:27-0400 Body mass index (BMI) [Ratio] 19 kg/m2 [facility] 01-26-2023 08:27-0400 Body temperature 97.1 [degF] [facility] 01-26-2023 08:27-0400 Body weight 47.17 kg [facility] 01-26-2023 08:27-0400 Diastolic blood pressure 95 mm[Hg] [facility] 01-26-2023 08:27-0400 Heart rate 108 /min [facility] 01-26-2023 08:27-0400 Respiratory rate 16 /min [facility] 01-26-2023 08:27-0400 SaO2% (BldA) [Mass fraction] 100 % [facility] 01-26-2023 08:27-0400 Systolic blood pressure 148 mm[Hg] [facility] 01-01-2023 10:59-0400 Body temperature 97.9 [degF] Elkin Oliva MD Work Phone: [facility] 01-01-2023 10:59-0400 Body weight 47.17 kg Elkin Oliva MD Work Phone: [facility] 01-01-2023 10:59-0400 Diastolic blood pressure 62 mm[Hg] Elkin Oliva MD Work Phone: [facility] 01-01-2023 10:59-0400 Heart rate 100 /min Elkin Oliva MD Work Phone: [facility] 01-01-2023 10:59-0400 Respiratory rate 18 /min Elkin Oliva MD Work Phone: [facility] 01-01-2023 10:59-0400 SaO2% (BldA) [Mass fraction] 98 % Elkin Oliva MD Work Phone: [facility] 01-01-2023 10:59-0400 Systolic blood pressure 112 mm[Hg] Elkin Oliva MD Work Phone: [facility] 11-08-2022 08:47-0400 Body height 157.5 cm Rod Rosales SECURITY CONTROL ASSESSOR.DIRECTOR SALES SUPPORT Work Phone: [facility] 11-08-2022 08:47-0400 Body weight 46.72 kg Rod Rosales SECURITY CONTROL ASSESSOR.DIRECTOR SALES SUPPORT Work Phone: [facility] 11-08-2022 08:47-0400 Diastolic blood pressure 70 mm[Hg] Rod Rosales SECURITY CONTROL ASSESSOR.DIRECTOR SALES SUPPORT Work Phone: [facility] 11-08-2022 08:47-0400 Heart rate 88 /min Rod Rosales SECURITY CONTROL ASSESSOR.DIRECTOR SALES SUPPORT Work Phone: [facility] 11-08-2022 08:47-0400 Respiratory rate 16 /min Rod Rosales SECURITY CONTROL ASSESSOR.DIRECTOR SALES SUPPORT Work Phone: [facility] 11-08-2022 08:47-0400 SaO2% (BldA) [Mass fraction] 100 % Rod Rosales SECURITY CONTROL ASSESSOR.DIRECTOR SALES SUPPORT Work Phone: [facility] 11-08-2022 08:47-0400 Systolic blood pressure 112 mm[Hg] Rod Rosales SECURITY CONTROL ASSESSOR.DIRECTOR SALES SUPPORT Work Phone: [facility] 09-06-2022 12:30-0500 Body temperature 98.1 [degF] [facility] 09-06-2022 12:30-0500 Diastolic blood pressure 87 mm[Hg] [facility] 09-06-2022 12:30-0500 Heart rate 61 /min [facility] 09-06-2022 12:30-0500 Respiratory rate 16 /min [facility] 09-06-2022 12:30-0500 SaO2% (BldA) [Mass fraction] 100 % [facility] 09-06-2022 12:30-0500 Systolic blood pressure 120 mm[Hg] [facility] 09-06-2022 10:37-0500 Body height 157.48 cm [facility] 09-06-2022 10:37-0500 Body mass index (BMI) [Ratio] 18.8 kg/m2 [facility] 09-06-2022 10:37-0500 Body weight 46.72 kg [facility] 04-05-2022 14:54-0400 Body height 157.48 cm No Primary Care Physician [facility] Work Phone: 04-05-2022 14:53-0400 Body mass index (BMI) [Ratio] 18.3 kg/m2 No Primary Care Physician [facility] Work Phone: 04-05-2022 14:53-0400 Body weight 45.35 kg No Primary Care Physician [facility] Work Phone: 04-05-2022 14:53-0400 Diastolic blood pressure 70 mm[Hg] No Primary Care Physician [facility] Work Phone: 04-05-2022 14:53-0400 Systolic blood pressure 106 mm[Hg] No Primary Care Physician [facility] Work Phone: 11-16-2021 23:13-0400 Diastolic blood pressure 74 mm[Hg] Dr. Jose Feldman Work Phone: [facility] Work Phone: 11-16-2021 23:13-0400 Heart rate 74 /min Dr. Jose Feldman Work Phone: [facility] Work Phone: 11-16-2021 23:13-0400 Respiratory rate 17 /min Dr. Jose Feldman Work Phone: [facility] Work Phone: 11-16-2021 23:13-0400 SaO2% (BldA) [Mass fraction] 97 % Dr. Jose Feldman Work Phone: [facility] Work Phone: 11-16-2021 23:13-0400 Systolic blood pressure 121 mm[Hg] Dr. Jose Feldman Work Phone: [facility] Work Phone: 11-16-2021 19:44-0400 Body height 157.[address] Jose Feldman Work Phone: [facility] Work Phone: 11-16-2021 19:44-0400 Body mass index (BMI) [Ratio] 18.6 kg/m2 Dr. Jose Feldman Work Phone: [facility] Work Phone: 11-16-2021 19:44-0400 Body temperature 96.8 [degF] Dr. Jose Feldman Work Phone: [facility] Work Phone: 11-16-2021 19:44-0400 Body weight 46.[address] Jose Feldman Work Phone: [facility] Work Phone: 09-28-2021 12:23-0500 Body mass index (BMI) [Ratio] 19.4 kg/m2 Dr. Jose Feldman Work Phone: [facility] Work Phone: 09-28-2021 12:23-0500 Body weight 48.[address] Jose Feldman Work Phone: [facility] Work Phone: 09-28-2021 12:23-0500 Diastolic blood pressure 78 mm[Hg] Dr. Jose Feldman Work Phone: [facility] Work Phone: 09-28-2021 12:23-0500 Systolic blood pressure 104 mm[Hg] Dr. Jose Feldman Work Phone: [facility] Work Phone: Encounters Encounter Date Encounter Type Care Provider Facility Start: 04-29-2025 ambulatory Elkin D Talampas Facilit y:[facility] Start: 04-27-2025 Encounter for other preprocedural examination Nohelia Munroe [facility] Start: 04-23-2025 End: 04-23-2025 ambulatory Elkin D Talampas Facility:[facility] Start: 04-13-2025 ambulatory Elkin D Talampas Facilit y:[facility] Start: 03-24-2025 End: 03-24-[address] Nohelia Munroe DO -[facility] Work Phone: Start: 03-24-2025 End: 03-24-[address] Elkin Oliva MD Work Phone: -[facility] Start: 03-22-2025 End: 03-22-2025 Emergency department patient visit Dr. Elkin Oliva MD Work Phone: -Emergency Department Work Phone: Start: 03-05-2025 End: 03-05-[address] Emma Schilling MD -[facility] Work Phone: Start: 03-05-2025 End: 03-05-[address] Elkin Oliva MD Work Phone: -[facility] Start: 03-01-2025 End: 03-01-[address] Elkin Oliva MD Work Phone: -[facility] Start: 03-01-2025 End: 03-01-2025 Patient encounter procedure Mahnaz Lovett CNM -[facility] Work Phone: Start: 03-01-2025 End: 03-01-2025 ambulatory Elkin Oliva Facility:[facility] Start: 02-10-2025 End: 02-10-2025 Refill Elkin Oliva MD Work Phone: [facility] [place] Comment on above: Refill Request Start: 2025 Non-patient / Non-visit Dr. Emma otto MD -[facility] Work Phone: Start: 01-13-2025 End: 01-13-[address] Elkin Oliva MD Work Phone: [facility] Work Phone: Start: 01-13-2025 End: 01-13-2025 Patient encounter procedure Mahnaz Lovett CNM -[facility] Work Phone: Start: 01-13-2025 End: 01-13-2025 ambulatory Elkin Oliva Facility:[facility] Start: 01-11-2025 End: 01-11-2025 Patient encounter procedure Mahnaz MONTOYA -[facility] Work Phone: Start: 01-11-2025 End: 01-11-[address] Elkin Oliva MD Work Phone: [facility] Work Phone: Start: 11-27-2024 End: 11-27-2024 Patient encounter procedure Mahnaz Lovett [facility] -[facility] Work Phone: Start: 11-27-2024 End: 11-27-2024 ambulatory Elkin Oliva Facility:[facility] Start: 11-02-2024 End: 11-02-2024 ambulatory [facility] Facility:[facility] Start: 11-02-2024 End: 11-02-2024 Office outpatient visit 25 minutes Rod Rosales APRN.DIRECTOR SALES SUPPORT Work Phone: [facility] [place] Comment on above: PTSD (post-traumatic stress disorder) (Primary Dx); Irregular menses; Encounter for immunization; Migraine with aura and without status migrainosus, not intractable; Tobacco use Start: 10-19-2024 End: 10-19-[address] Nohelia Munroe DO -[facility] Work Phone: Start: 10-19-2024 End: 10-19-2024 ambulatory Elkin Oliva Facility:[facility] Start: 10-15-2024 End: 12-15-2024 Follow-up encounter Rod Rosales APRN.DIRECTOR SALES SUPPORT Work Phone: [facility] [place] Start: 09-04-2024 End: 09-04-2024 [facility] Start: 09-04-2024 End: 09-04-2024 Office outpatient visit 25 minutes Rod Rosales APRN.DIRECTOR SALES SUPPORT Work Phone: [facility] [place] Comment on above: Irregular menses (Pr imary Dx); Migraine with aura and without status migrainosus, not intractable; Chronic daily headache; PTSD (post-traumatic stress disorder) Start: 09-04-2024 End: 09-04-2024 ambulatory ELKIN OLIVA Facility:[facility] Start: 08-23-2024 End: 08-24-2024 noy Oliva MD Work Phone: [facility] [place] Start: 08-23-2024 End: 08-24-2024 Patient encounter procedure Elkin Oliva MD Work Phone: [facility] [place] Comment on above: Schedule Appointment Start: 06-25-2024 End: 06-25-2024 ambulatory Elkin Oliva Facility:[facility] Start: 06-15-2024 Encounter for gynecological examination (general) (routine) without abnormal findings Mahnaz Lovett [facility] Start: 06-15-2024 End: 06-15-2024 ambulatory Elkin Oliva Facility:[facility] Start: 06-15-2024 End: 06-15-2024 ambulatory Elkin Oliva Facility:[facility] Start: 05-06-2024 End: 05-06-2024 ambulatory Emma [facility] Facility:[facility] Start: 01-14-2024 End: 01-14-2024 Patient encounter procedure Catherine Maria APRN.CNP Work Phone: Psychiatry Comment on above: NO SHOW (Primary Dx) Start: 01-06-2024 End: 01-06-2024 Office outpatient visit 15 minutes Elkin Oliva MD Work Phone: [facility] [place] Comment on above: Migraine with aura a nd without status migrainosus, not intractable (Primary Dx); Muscle spasm; Major depressive disorder in partial remission, unspecified whether recurrent (HCC) Start: 01-06-2024 End: 01-06-2024 ambulatory ELKIN OLIVA Facility:[facility] Start: 11-15-2023 Telephone encounter Elkin funes MD Work Phone: [facility] [place] Comment on above: requesting referral Start: 09-26-2023 End: 09-26-2023 Admission to same day surgery center Dr. Elkin Oliva Work Phone: [facility] Start: 09-26-2023 End: 09-26-[address] Elkin lOiva Work Phone: [facility] Work Phone: Start: 08-28-2023 End: 08-28-2023 Emergency department patient visit Dr. Elkin Oliva Work Phone: [facility]Emer[facility] Work Phone: Start: 07-25-2023 End: 07-25-[address] Elkin Oliva Work Phone: [facility] Work Phone: Start: 07-25-2023 End: 07-25-[address] [facility] Work Phone: Start: 07-25-2023 End: 07-25-[address] Elkin Oliva Work Phone: [facility] Work Phone: Start: 07-19-2023 End: 07-19-2023 Emergency department patient visit Dr. Elkin Oliva Work Phone: [facility] Work Phone: Start: 07-10-2023 Refill Radames Worthy MD Work Phone: Neurology Comment on above: Refill Request Start: 06-14-2023 End: 06-14-[address] Elkin Oliva Work Phone: [facility] Work Phone: Start: 06-14-2023 End: 06-14-[address] Elkin Oliva Work Phone: [facility] Work Phone: Start: 06-14-2023 End: 06-14-[address] Elkin Oliva Work Phone: [facility] Work Phone: Start: 03-26-2023 Telephone encounter Radames salgado MD Work Phone: Neurology Comment on above: Medication Question Start: 03-26-2023 End: 03-26-2023 ambulatory JJ VELÁZQUEZ MD Facility:[facility] Start: 03-26-2023 End: 03-26-2023 SAME DAY STAY JJ VELÁZQUEZ MD [facility] Start: 03-25-2023 End: 03-25-2023 Office outpatient visit 15 minutes Elkin Oliva MD Work Phone: [facility] [place] Comment on above: Muscle spasm (Primar y Dx); Migraine with aura and without status migrainosus, not intractable; Chronic daily headache Start: 03-24-2023 Refill Rod Rosales APRN.DIRECTOR SALES SUPPORT Work Phone: [facility] [place] Comment on above: Refill Request Start: 03-13-2023 End: 03-18-2023 ambulatory JOSEPH POE SECURITY CONTROL ASSESSOR-[employer] Facility:[facility] Start: 03-13-2023 End: 03-14-2023 ambulatory JJ VELÁZQUEZ MD Facility:[facility] Start: 03-13-2023 End: 03-13-2023 Admission to establishment JJ VELÁZQUEZ MD [facility] Start: 03-07-2023 End: 03-07-2023 Office outpatient visit 25 minutes Radames Worthy MD Work Phone: Neurology Comment on above: Chronic daily headac he (Primary Dx) Start: 03-06-2023 End: 03-11-2023 ambulatory JOSEPH POE APRN-[employer] Facility:[facility] Start: 03-06-2023 End: 03-06-2023 Patient encounter procedure JOSEPH Traore MAYKEL SECURITY CONTROL ASSESSOR-[employer] [facility] Start: 02-28-2023 Refill Radames Worthy MD Work Phone: Neurology Comment on above: Refill Request Start: 02-18-2023 Telephone encounter Radames salgado MD Work Phone: Neurology Comment on above: Medication Problem ( amitriptyline (ELAVIL) 10 mg tablet) Start: 01-29-2023 End: 01-29-2023 Office outpatient visit 15 minutes Elkin Oliva MD Work Phone: [facility] [place] Comment on above: Acute cystitis with hematuria (Primary Dx) Start: 01-29-2023 End: 01-30-2023 ambulatory ELKIN OLIVA Facility:[facility] Start: 01-29-2023 End: 01-29-2023 Office outpatient new 45 minutes Radames Worthy MD Work Phone: Neurology Comment on above: Migraine with aura a nd without status migrainosus, not intractable (Primary Dx); Chronic daily headache Start: 01-28-2023 Telephone encounter Elkin funes MD Work Phone: [facility] [place] Comment on above: [facility] ER update; Resul ts Start: 01-26-2023 End: 01-26-2023 Emergency department patient visit [facility] Start: 01-24-2023 Refill Elkin boland MD Work Phone: [facility] [place] Comment on above: Refill Request FMLA Forms Start: 01-16-2023 End: 01-17-2023 ambulatory JJ VELÁZQUEZ MD Facility: Start: 01-16-2023 End: 01-16-2023 Patient encounter procedure JJ VELÁZQUEZ MD [facility] Start: 01-02-2023 Telephone encounter Elkin funes MD Work Phone: [facility] [place] Comment on above: Disability and leave forms from [employer] Start: 01-01-2023 End: 01-01-2023 Office outpatient visit 25 minutes Elkin Oliva MD Work Phone: [facility] [place] Comment on above: Migraine with aura a nd without status migrainosus, not intractable (Primary Dx); Chronic daily headache; PTSD (post-traumatic stress disorder); Interstitial cystitis; Eosinophilic cystitis Start: 12-19-2022 End: 12-19-2022 ambulatory Mirtha Savage LORENA.[employer] Work Phone: Telemedicine Comment on above: Treatment not availa ble (Primary Dx) Procedure and treatm ent not carried out for other reasons (Primary Dx) Virtual Visit Start: 12-19-2022 E-mail encounter chong m caregiver Mirtha Savage [employer] Work Phone: [facility] Start: 12-19-2022 End: 12-19-2022 Telemedicine consultation with patient Mirtha Savage APRKenziePRES[employer] Work Phone: [facility] Start: 11-08-2022 End: 11-08-2022 Patient encounter procedure Rod Rosales LORENA.DIRECTOR SALES SUPPORT Work Phone: [facility] Comment on above: History of headache (Primary Dx); PTSD (post-traumatic stress disorder); Acute nonintractable headache, unspecified headache type; Interstitial cystitis Start: 11-05-2022 Telephone encounter Jeni barakat MD Work Phone: [facility] Comment on above: FMLA Paperwork Start: 10-25-2022 End: 10-26-2022 ambulatory JOSEPH POE [employer] Facility:A Start: 10-25-2022 End: 10-25-2022 Patient encounter procedure JOSEPH POE [employer] [facility] Start: 09-06-2022 End: 09-06-2022 Admission to same day surgery center [facility] Start: 09-06-2022 End: 09-06-2022 ambulatory [facility] Work Phone: Start: 04-25-2022 End: 04-25-2022 ambulatory No Primary Care Physician [facility] Work Phone: Start: 04-25-2022 End: 04-25-2022 Patient encounter procedure No Primary Care Physician [facility]Cat Scan, [facility] Start: 04-18-2022 End: 04-18-2022 ambulatory No Primary Care Physician [facility] Work Phone: Start: 04-18-2022 End: 04-18-2022 Patient encounter procedure No Primary Care Physician [facility]Ultrasound, [facility] Start: 04-05-2022 End: 04-05-2022 ambulatory No Primary Care Physician [facility] Work Phone: Start: 04-05-2022 End: 04-05-2022 Patient encounter procedure No Primary Care Physician [facility] Start: 11-16-2021 End: 11-16-2021 Emergency department patient visit Dr. Jose Feldman Work Phone: [facility]Emergency Department Start: 09-28-2021 End: 09-28-[address] Jose Feldman Work Phone: [facility] Start: 09-28-2021 End: 09-28-[address] Jose Feldman Work Phone: [facility]-Laboratory, Specimen Procedures Date Procedure Procedure Detail Performing Clinician Start: 03-22-[address] Elkin Oliva MD Work Phone: Start: 03-22-[address] Elkin Oliva MD Work Phone: Start: 03-22-2025 Urnls dip stick/tabl et reagent auto microscopy Dr. Elkin Oliva MD Work Phone: Start: 03-01-[address] Elkin Oliva MD Work Phone: Start: 01-13-[address] Elkin Oliva MD Work Phone: Start: 01-06-2024 Adult depression scr eening assessment [...] section ROB VELÁZQUEZ MD section JOSEPH DAVIS SECURITY CONTROL ASSESSOR[employer] Cystoscopy JOSEPH POE SECURITY CONTROL ASSESSOR[employer] Urine culture No Primary Car e Physician Plan of Treatment Date Care Activity Detail Author Start: 03-24-2030 Urine microalbumin profile [facility] Start: 06-15-2027 Screening for malign ant neoplasm of cervix Cervical Cancer Screening [facility] Start: 06-14-2026 Pap Testing Pap Testing [facility] Start: 06-14-2026 Screening for malign ant neoplasm of cervix [facility] Start: 05-19-2025 ambulatory Ambulatory Facility:[facility] Start: 04-05-2025 Influenza vaccination [facility] Start: 03-22-2025 [facility] Start: 03-03-2025 End: 03-03-2025 Patient encounter procedure 03/03/2025 3:40 PM EDT Office Visit [facility] [address] [place] [address] Elkin Oliva MD [address] [place] [address] 6 month f/u [facility] Comment on above: 6 month f/u Start: 01-05-2025 Depression Screening Depression Scre ening [facility] Start: 11-02-2024 End: 11-02-2024 Patient encounter procedure 11/02/2024 11:00 AM EDT Office Visit [facility] [address] [place] [address] Rod Rosales, LORENA.DIRECTOR SALES SUPPORT [address] [place] [address] 1-2 month follow up [facility] Comment on above: 1-2 month follow up Start: 09-04-2024 End: 12-04-2024 17-Hydroxyprogesterone [Mass/volume] in Serum or Plasma [facility] Comment on above: Expected: 09/04/2024 (Approximate), Expires: 12/04/2024 Start: 09-04-2024 End: 12-04-2024 Hemoglobin A1c in Blood [facility] Comment on above: Expected: 09/04/2024 (Approximate), Expires: 12/04/2024 Start: 09-04-2024 End: 12-04-2024 Insulin [Units/volume] in Serum or [facility] Work Phone: Comment on above: Expected: 09/04/2024 (Approximate), Expires: 12/04/2024 Start: 08-25-2024 End: 08-25-2024 Patient encounter procedure 08/25/2024 11:00 AM EST Office Visit [facility] [address] [place] [place] [address] Elkin Oliva MD [address] [facility] [place] [address] Hormone imbalance [facility] Comment on above: Hormone imbalance Start: 07-14-2024 End: 07-14-2024 Patient encounter procedure 07/14/2024 6:40 PM EST Office Visit [facility] [address] [place] [place] [address] Elkin Oliva MD [address] [facility] [place] [address] 6 month follow up [facility] Comment on above: 6 month follow up Start: 04-05-2024 Covid-19 Vaccine () Covid-19 Vaccine () [facility] Start: 04-05-2024 Influenza vaccination [facility] Start: 01-30-2024 COVID-19 VACCINE (#1) COVID-19 VACCI NE (#1) [facility] Comment on above: Postponed from 08/03 (Declined at this time) Start: 09-26-2023 Patient discharge [facility] Start: 08-28-2023 [facility] Start: 08-28-2023 Measurement of occul t blood in stool specimen using immunoassay [facility] Start: 08-05-2023 Behavioral Health Screening Behavioral Health Screening [facility] Start: 07-19-2023 [facility] Start: 07-19-2023 [facility] Start: 07-19-2023 Bacteria identified in Urine by Culture Urine Culture [facility] Start: 06-14-2023 Liquid based cervica l cytology screening [facility] Start: 04-05-2023 Covid-19 Vaccine ( season) Covid-19 Vaccine () [facility] Start: 04-05-2023 Influenza vaccination [facility] Start: 01-26-2023 [facility] Start: 01-26-2023 [facility] Start: 09-06-2022 Patient discharge [facility] Start: 08-05-2022 DEPRESSION ASSESSMENT DEPRESSION ASS ESSMENT [facility] Start: 04-05-[address] [facility] Work Phone: Start: 02-01-2017 PAP TESTING PAP TESTING [facility] Start: 02-01-2015 Pneumococcal vaccination Pneumococcal Vaccine (1 of 2 - PCV) [facility] Start: 02-01-2015 Urine microalbumin profile DTAP,TDAP,TD (1 - Tdap) [facility] Start: 02-01-2014 Depression Screening Depression Scre ening [facility] Start: 02-01-2010 PEDS TO ADULT TRANSITION ANNUAL ASSESSMENT PEDS TO ADULT TRANSITION ANNUAL ASSESSMENT [facility] Start: 2008 PEDS TO ADULT TRANSITION INITIAL DISCUSSION PEDS TO ADULT TRANSITION INITIAL DISCUSSION [facility] Start: 02-01-2007 HPV VACCINE (1 - 2-d ose series) HPV VACCINE (1 - 2-dose series) [facility] Start: 02-01-2005 HPV VACCINE (1 - 2-d ose series) HPV VACCINE (1 - 2-dose series) [facility] Start: 02-01-2002 PNEUMOCOCCAL (1 - PCV) PNEUMOCOCCAL (1 - PCV) [facility] Start: 02-01-2002 Pneumococcal vaccination [facility] Start: 1996 COVID-19 VACCINE (#1) COVID-19 VACCI NE (#1) [facility] Start: 1996 HEPATITIS B (1 of 3 - 3-dose series) HEPATITIS B (1 of 3 - 3-dose series) [facility] Bacteria identified in Urine by Culture Urine Culture [facility] Path report.final Dx Spec [facility] Patient Education [facility] Work Phone: Patient referral [facility] Work Phone: [place] Pelvis [facility] Work Phone: [place] Pelvis transvaginal [facility] Work Phone: [place] Pelvis transvaginal [facility] [place] Immunizations Immunization Date Immunization Notes Care Provider Fa cility 04-08-2020 Flucelvax Quad [id number] (PF) (flu vac qs 2020(4 yr up)CD(PF)) 60 mcg ([address] Jose Feldman Work Phone: [facility] Work Phone: 04-08-2020 Influenza, injectabl e, Madin [place] Canine Kidney, preservative free, quadrivalent Rod Rosales SECURITY CONTROL ASSESSOR.DIRECTOR SALES SUPPORT Work Phone: [facility] Work Phone: 04-08-2020 influenza virus vaccine, unspecified formulation Elkin Oliva MD Work Phone: [facility] 04-07-2020 influenza, injectabl e, quadrivalent, preservative free Dr. Elkin Oliva Work Phone: [facility] 04-07-2020 influenza, seasonal, injectable Dr. Jose Feldman Work Phone: [facility] 03-24-2020 diphtheria, tetanus toxoids and acellular pertussis vaccine, unspecified formulation Dr. Jose Feldman Work Phone: [facility] Work Phone: 03-24-2020 tetanus toxoid, redu ron diphtheria toxoid, and acellular pertussis vaccine, adsorbed Dr. Jose Feldman Work Phone: [facility] 07-17-2003 influenza nasal, unspecified formulation Rod Rosales SECURITY CONTROL ASSESSOR.DIRECTOR SALES SUPPORT Work Phone: [facility] 07-17-2003 influenza virus vaccine, unspecified formulation JJ VELÁZQUEZ MD [facility] 07-17-2003 influenza, seasonal, injectable Rod Rosales SECURITY CONTROL ASSESSOR.DIRECTOR SALES SUPPORT Work Phone: [facility] Work Phone: 03-27-2001 diphtheria, tetanus toxoids and acellular pertussis vaccine, unspecified formulation Rod Rosales SECURITY CONTROL ASSESSOR.DIRECTOR SALES SUPPORT Work Phone: [facility] Work Phone: 03-27-2001 measles, mumps and rubella virus vaccine Rod Rosales SECURITY CONTROL ASSESSOR.DIRECTOR SALES SUPPORT Work Phone: [facility] Work Phone: 03-27-2001 measles/mumps/rubell a virus vaccine JJ VELÁZQUEZ MD [facility] 03-27-2001 poliovirus vaccine, unspecified formulation Rod Rosales SECURITY CONTROL ASSESSOR.DIRECTOR SALES SUPPORT Work Phone: [facility] Work Phone: 11-23-1997 haemophilus influenz ae type b vaccine, conjugate unspecified formulation Rod Rosales SECURITY CONTROL ASSESSOR.DIRECTOR SALES SUPPORT Work Phone: [facility] Work Phone: 08-10-1997 diphtheria, tetanus toxoids and pertussis vaccine Rod Rosales SECURITY CONTROL ASSESSOR.DIRECTOR SALES SUPPORT Work Phone: [facility] Work Phone: 08-10-1997 poliovirus vaccine, unspecified formulation Rod Rosales SECURITY CONTROL ASSESSOR.DIRECTOR SALES SUPPORT Work Phone: [facility] Work Phone: 05-07-1997 measles, mumps and rubella virus vaccine Rod Rosales SECURITY CONTROL ASSESSOR.DIRECTOR SALES SUPPORT Work Phone: [facility] Work Phone: 05-07-1997 measles/mumps/rubell a virus vaccine JJ VELÁZQUEZ MD [facility] 05-07-1997 varicella virus vaccine Terr i Rosales SECURITY CONTROL ASSESSOR.DIRECTOR SALES SUPPORT Work Phone: [facility] Work Phone: 02-04-1997 diphtheria, tetanus toxoids and pertussis vaccine Rod Rosales SECURITY CONTROL ASSESSOR.DIRECTOR SALES SUPPORT Work Phone: [facility] Work Phone: 02-04-1997 haemophilus influenz ae type b vaccine, conjugate unspecified formulation Rod Rosales SECURITY CONTROL ASSESSOR.DIRECTOR SALES SUPPORT Work Phone: [facility] Work Phone: 1996 diphtheria, tetanus toxoids and pertussis vaccine Rod Rosales SECURITY CONTROL ASSESSOR.DIRECTOR SALES SUPPORT Work Phone: [facility] Work Phone: 1996 haemophilus influenz ae type b vaccine, conjugate unspecified formulation Rod Rosales SECURITY CONTROL ASSESSOR.DIRECTOR SALES SUPPORT Work Phone: [facility] Work Phone: 1996 hepatitis B pediatri c vaccine JJ VELÁZQUEZ MD [facility] 1996 hepatitis B vaccine, pediatric or pediatric/adolescent dosage Rod Rosales SECURITY CONTROL ASSESSOR.DIRECTOR SALES SUPPORT Work Phone: [facility] Work Phone: 1996 poliovirus vaccine, unspecified formulation Rod Rosales SECURITY CONTROL ASSESSOR.DIRECTOR SALES SUPPORT Work Phone: [facility] Work Phone: 1996 diphtheria, tetanus toxoids and pertussis vaccine Rod Rosales SECURITY CONTROL ASSESSOR.DIRECTOR SALES SUPPORT Work Phone: [facility] Work Phone: 1996 haemophilus influenz ae type b vaccine, conjugate unspecified formulation Rod Rosales SECURITY CONTROL ASSESSOR.DIRECTOR SALES SUPPORT Work Phone: [facility] Work Phone: 1996 hepatitis B pediatri c vaccine JJ VELÁZQUEZ MD [facility] 1996 hepatitis B vaccine, pediatric or pediatric/adolescent dosage Rod Rosales SECURITY CONTROL ASSESSOR.DIRECTOR SALES SUPPORT Work Phone: [facility] Work Phone: 1996 poliovirus vaccine, unspecified formulation Rod Rosales SECURITY CONTROL ASSESSOR.DIRECTOR SALES SUPPORT Work Phone: [facility] Work Phone: 1996 hepatitis B pediatri c vaccine JJ VELÁZQUEZ MD [facility] 1996 hepatitis B vaccine, pediatric or pediatric/adolescent dosage Rod Rosales SECURITY CONTROL ASSESSOR.DIRECTOR SALES SUPPORT Work Phone: [facility] Work Phone: Payers Date Payer Category Payer Self-pay [id number] 2022 Medicaid [id number] 2021 Unknown [id number] 1996 Unknown [id number] 2.16.8 [id number] 1996 Unknown [id number] 2.16.8 [id number] 1996 Unknown [id number] 2.16.8 [id number] 1996 Unknown [id number] 2.16.8 40.1.995783.3.579.2.627 1996 Unknown [id number] 2.16.8 40.1.341769.3.579.2.627 1996 Unknown [id number] 2.16.8 40.1.569656.3.579.2.627 1996 Unknown [id number] 2.16.8 40.1.760256.3.579.2.627 1996 Unknown [id number] 2.16.8 40.1.575211.3.579.2.627 Unknown [id number] Unknown [id number] Unknown [id number] Unknown [id number] Unknown [id number] 2.16.8 40.1.222314.3.579.2.462 Unknown [id number] 2.16.8 40.1.652662.3.579.2.462 Unknown [id number] 2.16.8 40.1.002124.3.579.2.462 Unknown [id number] 2.16.8 40.1.896986.3.579.2.462 Unknown [id number] 2.16.8 40.1.215029.3.579.2.462 Unknown [id number] 2.16.8 40.1.639588.3.579.2.462 Unknown [id number] 2.16.8 40.1.682345.3.579.2.462 Unknown [id number] 2.16.8 40.1.919859.3.579.2.462 Unknown [id number] 2.16.8 40.1.092751.3.579.2.462 Unknown [id number] 2.16.8 40.1.583115.3.579.2.462 Unknown [id number] 2.16.8 40.1.617149.3.579.2.462 Unknown [id number] 2.16.8 40.1.771284.3.579.2.462 Unknown [id number] 2.16.8 40.1.322464.3.579.2.462 Unknown [id number] 2.16.8 40.1.295274.3.579.2.462 Unknown [id number] 2.16.8 40.1.167042.3.579.2.462 Unknown [id number] 2.16.8 40.1.941071.3.579.2.462 Social History Date Type Detail Facility [facility] Work Phone: Start: 11-16-2021 End: 07-19-2023 Tobacco smoking status NHIS Unknown if ever smoked [facility] Start: 1995 Sex Assigned At Female [facility] Start: 10-25-2022 End: 03-13-2023 Tobacco smoking status Light tobacco smoker (finding) [facility] Sex Assigned At Sex [facility] Start: 10-07-2019 End: 03-22-2025 Tobacco smoking status NHIS Smokes tobacco daily [facility] History of tobacco use Cigarette Smoker [facility] Start: 10-07-2019 End: 08-25-2024 Cigarettes smoked current (pack per day) - Reported 0.5 [facility] Start: 10-07-2019 End: 09-04-2024 Tobacco use and exposure Smokeless tobacco non-user [facility] Start: 10-07-2019 End: 11-02-2024 Alcohol intake Current non-drinker of alcohol (finding) [facility] Start: 11-07-2022 History SDOH Alcohol Frequency 1 [facility] Start: 11-07-2022 History SDOH Alcohol Std Drinks 0 [facility] Start: 11-07-2022 History SDOH Social Connections Phone 3 [facility] Start: 11-07-2022 History SDOH Social Connections Membership 2 [facility] Start: 11-07-2022 History SDOH Social Connections Living 8 [facility] Start: 11-07-2022 History SDOH Physica l Activity DPW 5 [facility] Start: 11-07-2022 History SDOH Physica l Activity MPS 15 [facility] Start: 11-07-2022 History SDOH Stress 4 [facility] Start: 11-06-2022 End: 08-25-2024 Social connection and isolation panel [facility] Do you belong to any clubs or organizations such as evangelical groups, unions, fraternal or athletic groups, or school groups? No [facility] Are you now , , , , never or living with a partner? Living with partner [facility] How often to you hav e a drink containing alcohol? Never [facility] How many standard drinks containing alcohol do you have on a typical day? Patient does not drink [facility] How hard is it for y ou to pay for the very basics like food, housing, medical care, and heating Not very hard [facility] Do you feel stress - tense, restless, nervous, or anxious, or unable to sleep at night because your mind is troubled all the time - these days [OSQ] Rather much [facility] (I/We) worried wheth er (my/our) food would run out before (I/we) got money to buy more. Never true [facility] Start: 11-06-2022 Gender identity Identifies as female gender (liat) [facility] Start: 11-06-2022 Sexual orientation Heterosexual (allan cherry) [facility] Are you now , , , , never or living with a partner? Never [facility] How hard is it for y ou to pay for the very basics like food, housing, medical care, and heating Somewhat hard [facility] (I/We) worried wheth er (my/our) food would run out before (I/we) got money to buy more. Sometimes true [facility] In the past 12 month s, was there a time when you were not able to pay the mortgage or rent on time? Yes [facility] NEGATED: Highlighted row [facility] Goals Date Patient Goal Desired Activity /State Functional Status Date Assessment Result Facility 09-26-2023 Functional status Ambulates [facility] Work Phone: 03-26-2023 Functional Status Assistive Device None A [facility] 03-26-2023 Functional Status Awake, Resting [facility] 03-26-2023 Functional Status [facility] 03-26-2023 Functional Status Maintained [facility] 03-13-2023 Functional Status Sensory Deficits None A [facility] Mental Status Date Assessment Result Facility 09-26-2023 Cognitive function Voice/Name;Light Pain [facility] Work Phone: 07-19-2023 Cognitive function Level Of Cons ciousness Awake;Alert;Appropriate;Follow s Commands [facility] Work Phone: 03-26-2023 Mental Status Oriented x 4 [facility] 03-26-2023 Mental Status [facility] 03-26-2023 Mental Status Orientation Asse ssment Oriented x 4 [facility] 09-06-2022 Cognitive function Voice/Name [facility] Work Phone: Clinical Notes 09-06-2022 to 03-22-2025 Note Date & Type Note Facility 03-22-2025 Discharge summary [facility] 03-22-2025 Radiology Diagnostic study note [facility] Imaging Services [address] [place] [address] Transvaginal Non- MR#: [id number] Acct: [id number] Name: RIDDHI MEDLEY Rep #: [id number] : 1995 F 30 From: Kana Sky MD PCP: Dr. Elkin Oliva MD Status: RE G ER Study:Transvaginal Non- Date of Exam: 03/22/25 Exam# [id number] Ordering Dr: Breezy Chirinos MD PROCEDURE: TRANSVAGINAL NON- 03/22/2025 REASON FOR EXAM: ACUTE LEFT ADNEXAL PAIN, HISTORY COMPLEX 5 CM CYST TECHNIQUE: TRANSVAGINAL NON- COMPARISON: 02/2025. FINDINGS: Measurements: Uterus measures 9.1 x 6.2 x 4.7 cm. Anteverted. No fibroids. Endometrial thickness of 4 mm. Intrauterine device is present in satisfactory position. Right ovary measures 2.5 x 1.9 x 1.7 cm. Left ovary measures 6.0 x 4.9 x 2.6 cm. Persistent left ovarian 5.3 x 4.3 x 2.2 cm cyst, previously 4.0 x 2.1 x 2.4 cm. Preserved vascular flow of the bilateral ovaries. No free fluid in the cul-de-sac. US/Transvaginal Non- IMPRESSION: Increased size of the complex left ovarian cyst. Further characterization with MRI is recommended. For uterine device in place. Reading Location: [id number] CC: Dr. Elkin Oliva MD; Dr. Kvng Chirinos MD ~ [place] Hand: Signed [facility] 03-22-2025 Discharge summary Note Date/Time March 22, 2025 8:26pm [facility] Medical Records Department [address] [place] [address] Emergency Department Summary 03/22/25 MR#: [id number] Acct: [id number] Name: RIDDHI MEDLEY Rep #:[id number] : 1995 30 From: Kvng Chirinos MD PCP: Dr. Elkin Oliva MD Status:RE G ER Location: ED HPI History of Present Illness Chief Complaint: Abd Pain Detail of Chief Complaint: Left lower quadrant adnexal pain Informant: patient Onset/Context/Timing Onset: Today Context: Sudden Onset Timing: Continuous Quality: Pain Location: Left adnexa/left lower quadrant Current Severity: Moderate Maximum Severity: Severe Worsened by: Movement and pants buckled Relieved by: Nothing Associated Symptoms Associated Symptoms: No other symptoms Narrative Narrative: Patient is a 30-year-old woman. She had an ultrasound on March 01 that revealed her uterus to be 8.5 x 5.5 x 4.8 cm with a volume of 115.26 mL. The endometriumwas thickened to 4.6 mm. Right ovary is 2.7 x 2.9 x 1.9 cm with a volume of 7.48 mL. Left ovary is 4.4 x 4.2 x 2.7 cm with a volume of 25.79. The interpretation per radiologist revealed a persistent complex cyst with focal thickening and septation within the cyst. Patient presents because abrupt onset of left lower quadrant/adnexal pain. Movement causes her pain. She had unbuckle her jeans because of discomfort. She still has discomfort but is less. She denies dysuria, frequency, urgency orhematuria. Last menses is unknown. She had a Mirena placed a couple of months ago. She is sexually active. Prior similar symptoms: Yes Recent Illness/Hospitalization: No PFSH PFSH Medical History Chronic bladder pain Depression Lesion of cervix Low grade squamous intraepithelial dysplasia Syncope Gastric reflux Constipation History of GI bleed PTSD (post-traumatic stress disorder) Marijuana use Anemia Easy bruising Vapes nicotine containing substance Bladder ulcer Dietary restriction Migraine Gestational hypertension History of depression History of anxiety Home Medications ?Medication ?Instructions ?Recorded ?Last Taken ?Type Lactobacillus acidophilus 250 500 mmu cells PO DAILY 0 09/18/23 09/24/23 History million cell capsule (Probiotic Acidophilus) cephalexin 250 mg capsule 250 mg PO QHS 09/18/2309/24 History cyclobenzaprine 5 mg tablet 5 mg PO TID PRN SPASMS 09/24/23 History d-mannose 500 mg capsule 1,000 mg PO DAILY 09/18/23 0 09/24/23 History mirabegron 25 mg tablet,extended 50 mg PO QHS 09/18/23 09/24/23 History release 24 hr (Myrbetriq) buspirone 5 mg tablet 5 mg PO TID PRN anxiety #30 tabs 10/19/24 Unknown Rx citalopram 10 mg tablet 10 mg PO QDAY 10/19/24 Unkno wn History levonorgestrel (Mirena) 1 device intrauterine ONCE 0 01/11/25 Unknown History sulfamethoxazole 800 1 tab PO BID #14 tabs Unknown Rx mg-trimethoprim 160 mg tablet (Bactrim DS) hydrocodone-acetaminophen 5-325mg 1 tab PO Q6H PRN PRN Pain 3 days 03/22/25 Unknown Rx 5mg-325mg #10 TABLETS Allergy/AdvReac Type Severity Reaction Status Date / Time amitriptyline AdvReac Intermediate confusion Verified 03/22/25 16:26 Family History Grandmother Diabetes Breast cancer Grandfather Diabetes Ksmbe-8-arkftzhjfzq deficiency Other Cancer Coagulation disorder Surgical History History of cystoscopy History of cystoscopy History of cystoscopy delivery delivered Social History Smoking Status: Current every day smoker tobacco type: e-cigarettes Electronic Cigarette Use: with nicotine alcohol intake: never substance use type: does not use caffeine: Yes (rarely) what type of physical activity do you participate in: walking and other details: 20,000 steps per day seatbelt use: always do you feel safe at home: Yes additional social history: Boyfriend-Gerardo Goodson Patient works at [employer] ED Constitutional Constitutional ED: Denies chills or fever(s) Cardiovascular Cardiovascular: Denies chest pain or palpitations Respiratory/Chest Respiratory/Chest: Denies cough, dyspnea or dyspnea on exertion Gastrointestinal Gastrointestinal: Reports abdominal pain; Denies constipation, diarrhea, melena,nausea or vomiting Genitourinary Genitourinary ED: Denies dysuria, hematuria or urinary frequency Musculoskeletal Musculoskeletal: Denies arthralgias or myalgias Integumentary Denies rash Neurologic Neurologic: Denies weakness Psychiatric Psychiatric: Denies anxiety or depression Endocrine Endocrinology: Denies cold intolerance or heat intolerance Hematologic/Lymphatic Hematologic/Lymphatic: Reports systems reviewed and no addt'l complaints, exceptas documented EXAM Physical Exam Const Vital Signs: 03/22/25 16:25 03/22/25 16:26 03/22/25 19:27 Temperature 98.5 F Temperature Source Oral Pulse Rate 64 102 H 82 Respiratory Rate 16 18 18 Blood Pressure 138/79 H 114/74 Blood Pressure Mean 98 87 Pulse Ox 99 99 100 Oxygen Delivery Method Room Air Room Air Positive well nourished and well developed General Appearance ED: well developed HEENT Reports moist mucous membranes HEENT Narrative: Head is atraumatic normocephalic. Eyes PERRL and EOMs intact bilaterally Neck no lymphadenopathy and no JVD Chest Wall inspection of chest normal and palpation of chest normal Resp normal respiratory effort and clear to auscultation bilaterally Cardio regular rate, regular rhythm, S1 normal heart sound, S2 normal heart sound and no murmurs GI normal to inspection, nondistended, normoactive bowel sounds, non-distended and no masses; Negative for non-tender or hepatosplenomegaly Palpation: tender LLQ and guarding LLQ (Adnexal region.) Back/Spine no CVA tenderness Neuro oriented x3 Sensorium / Orientation: alert Skin no rashes or lesions noted, no wounds and skin turgor normal MDM MDM MDM Narrative Medical decision making narrative: Differential diagnosis is ovarian torsion, ruptured complex cyst. Appropriate blood work was ordered which included CBC, electrolyte panel UA and test. Ultrasound with flow was ordered. Awaiting formal read by radiologist. Lab Data Attestation: I reviewed the patient's lab results. Lab results narrative: CBC is normal. Comprehensive metabolic panel is normal. Lipase is normal. UA is unremarkable. Serum test was negative. Patient did have nurse protocol orders entered and reason for comprehensive panel. Labs: Laboratory Results - last 24 hr 03/22/25 03/22/25 16:59 17:05 WBC 8.1 RBC 4.31 Hgb 13.2 Hct 38.4 MCV 89.1 MCH 30.6 MCHC 34.4 RDW Std Deviation 39.1 RDW Coeff of Cosme 11.9 Plt Count 262 MPV 11.1 Immature Gran % (Auto) 0.100 Neut % (Auto) 58.5 Lymph % (Auto) 34.8 Prairie % (Auto) 4.6 Eos % (Auto) 1.5 Baso % (Auto) 0.5 Absolute Neuts (auto) 4.7 Absolute Lymphs (auto) 2.80 Nucleated RBC % 0 Sodium 140 Potassium 4.6 Chloride 103 Carbon Dioxide 24.6 Anion Gap 12 BUN 14 Creatinine 0.98 Estim Creat Clear Calc 66.99 Est GFR (MDRD) Non-Af 80 BUN/Creatinine Ratio 14.2 Glucose 86 Calcium 9.7 Total Bilirubin 0.41 AST 32 ALT 14 Alkaline Phosphatase 52 Total Protein 7.6 Albumin 4.7 Globulin 2.9 Albumin/Globulin Ratio 1.6 Lipase 30 Serum , Qual NEGATIVE Urine Color Yellow Urine Clarity Sl. Cloudy Urine pH 5.0 Ur Specific [place] 1.020 Urine Protein 30 H Urine Glucose (UA) Normal Urine Ketones Negative Urine Occult Blood 150 H Urine Nitrite Negative Urine Bilirubin Negative Urine Urobilinogen Normal Ur Leukocyte Esterase 100 H Urine RBC 10-25 SEEN Urine WBC 25-50 SEEN Ur Squamous Epith Cells 0-5 SEEN Urine Bacteria 1+ Urine Mucus 1+ Radiography Diagnostic Testing: Clinical Impression(s) from Imaging Studies Transvaginal US 03/22/25 17:43 IMPRESSION: Increased size of the complex left ovarian cyst. Further characterization with MRI is recommended. For uterine device in place. [facility] Pelvic ultrasound was reviewed. Patient had flow noted. Management Discussion w/another healthcare provider: Computer Salesperson Retail (Spoke with Dr. Cary Jackson. She was informed patient is comfortable enough and would feel comfortable going home with pain medicine. She would like patient to call office in the morning to be seen within the next 5 to 7 days.) Discharge Plan Triage Chief Complaint: Abd Pain ED Provider: Kvng Chirinos Dx/Rx/DC Orders Clinical Impression: Complex cyst of left ovary, Acute left lower quadrant pain Instructions: ED Ovarian Cyst Prescriptions: New hydrocodone-acetaminophen 5-325 mg tablet 1 tab PO Q6H PRN PRN (Reason: Pain) 3 Days Qty: 10 0RF No Action citalopram 10 mg tablet 10 mg PO QDAY buspirone 5 mg tablet 5 mg PO TID PRN (Reason: anxiety) Qty: 30 4RF Mirena 21 mcg/24hr (up to 8 yrs) 52 mg intrauterine device 1 device intrauterine ONCE Rx Instructions: as a single dose Myrbetriq 25 mg tablet extended release 24 hr 50 mg PO QHS cephalexin 250 mg capsule 250 mg PO QHS cyclobenzaprine 5 mg tablet 5 mg PO TID PRN d-mannose 500 mg capsule 1,000 mg PO DAILY Probiotic Acidophilus 250 million cell capsule 500 mmu cells PO DAILY sulfamethoxazole-trimethoprim [Bactrim DS] 800-160 mg tablet 1 tab PO BID Qty: 14 0RF Primary Care Provider: Elkin Oliva Referrals: Elkin Oliva MD [Primary Care Provider] - Cary Jackson MD [Med Staff - Active Staff] - As soon as possible Activity Restrictions/Additional Instructions: 1. Call Dr. Cary Jackson's office in the morning to be seen in the next 5to 7 days. Tell the workers compensation legal secretary you need to be seen either by Dr. Cary Jackson or Dr. Hawkins Print Language: Mauritian Disposition Disposition: Home, Self Care What to do if you have Problems For any increased pain, shortness of breath, bleeding, nausea or vomiting, chestpain, or any unexpected problems, contact your Primary Care Provider. Call [facility] ([phone]) or report to the closest Emergency Room. Call 911 if necessary. 03/22/252025 <Electronically signed by Kvng Chirinos MD> Cosigner Signature (if applicable): CC: Dr. Elikn Oliva MD ~ Signed [facility] Work Phone: 1(751) 203-248408-18-2025 Hospital Discharge instructionsAdditional Instructions 1. Call Dr. Cary Jackson's office in the morning to be seen in the next 5 to 7 days. Tell the workers compensation legal secretary you need to be seen either by Dr. Cary Jackson or Dr. Huynh [facility] Work Phone: 1(496) 449-391307-28-2025 Radiology Diagnostic study note [facility] Imaging Services [address] [place] [address] Transvaginal Non- MR#: [id number] Acct: [id number] Name: RIDDHI MEDLEY Rep #: [id number] : 1995 F 30 From: Will Faulkner MD PCP: Dr. Elkin Oliva MD Status: RE G CLI Study:Transvaginal Non- Date of Exam: 03/01/25 Exam# [id number] Ordering Dr: Mahnaz Lovett CNM PROCEDURE: TRANSVAGINAL NON- 03/01/2025 REASON FOR EXAM: OVARIAN CYST TECHNIQUE: TRANSVAGINAL NON- COMPARISON: Prior study dated January 13, 2025. FINDINGS: Measurements: Uterus: 8.5 cm x 5.5 cm x 4.8 cm with a volume of 115.26 mL Endometrial Thickness: 4.6 mm Right Ovary: 2.7 cm x 2.9 cm x 1.9 cm with a volume of 7.48 mL. Left Ovary: 4.4 cm x 4.2 cm x 2.7 cm with a volume of 25.79 mL. Uterus: Heterogeneous echotexture of the myometrium suggestive of fibroid changealthough no focal fibroid is seen. IUD is seen within the fundal portion of the endometrium. Endometrium: Unremarkable. Right ovary: Normal size and echotexture. Left ovary: Persistent complex cyst in the left ovary measuring 4 cm x 2.5 cm 2.4 cm. Focal thickening and septation within the cyst. Other: US/Transvaginal Non- IMPRESSION: Stable appearance of the complex cyst in the left ovary. The remainder of the examination is unchanged. An IUD is seen within the fundal portion of the endometrium. Reading Location: [id number] CC: PERFECTO Lovett; Dr. Elkin Oliva MD ~ [place] Hand: Signed [facility]06-13-2025 Radiology Diagnostic study note [facility] Imaging Services [address] [place] [address] Transvaginal Non- MR#: [id number] Acct: [id number] Name: RIDDHI MEDLEY Rep #: [id number] : 1995 F 29 From: Will Faulkner MD PCP: Dr. Elkin Oliva MD Status: RE G CLI Study:Transvaginal Non- Date of Exam: 01/13/25 Exam# [id number] Ordering Dr: Mahnaz Lovett CNM PROCEDURE: TRANSVAGINAL NON- 01/13/2025 REASON FOR EXAM: PELVIC PAIN TECHNIQUE: Transvaginal pelvic ultrasound COMPARISON: Prior study dated April 18, 2022. FINDINGS: Measurements: Uterus: 9.3 cm x 5.7 cm x 4.7 cm with a volume of 128.74 mL Endometrial Thickness: 6.1 mm. It is hyperechoic. Small amount of fluid is seen within the endometrial canal. Nabothian cysts. An IUD is seen within the fundal portion of the endometrium. Right Ovary: 3 cm x 2.9 cm x 2.5 cm with a volume of 10.85 mL. Left Ovary: 4.6 cm x 3.4 cm x 2.4 cm with a volume of 19.9 mL. Uterus: Normal size, myometrial echotexture, and contour.. IUD is seen within the fundal portion ofthe endometrium. Endometrium: Unremarkable. Right ovary: Small follicles are seen within the ovary. Left ovary: There is a 4.1 cm x 3.1 cm 2.5 cm complex cyst in the left ovary with the several daughter cysts. There is also evidence of a 6 mm x 5 mm x 6 mm echogenic nodule along its periphery. Clinicalcorrelation and sonographic follow-up recommended. Other: US/Transvaginal Non- IMPRESSION: Complex cyst in the left ovary as described. Clinical and sonographic follow-uprecommended. Reading Location: [facility] CC: PERFECTO Lovett; Dr. Elkin Oliva MD ~ [place]: Signed [facility]06-09-2025 Progress [facility]'s [address], [address] [place] [address] OFFICE VISIT Date of Service: 01/11/25 MR#: [id number] Acct: [id number] Name: RIDDHI MEDLEY Rep #: [id number] : 1995 Provider: PERFECTO Lovett Age/Sex: 29/F Location: [facility] Status: Signed Intake Vital Signs 11/27/24 13:40 01/11/25 14:02 Height 5 ft 2 in 5 ft 2 in Weight: 119 lb 116 lb 6 oz BMI 21.7 21.2 BP 124/80 H 128/83 H Intake Visit Reasons: IUD check Ward Aide Required: No Is patient in pain?: Yes [...] History Grandmother Diabetes Breast cancer Grandfather Diabetes Qwkdl-6-vabachkplux deficiency Social History Smoking Status: Current every day smoker tobacco type: e-cigarettes Electronic Cigarette Use: with nicotine alcohol intake: never substance use type: does not use caffeine: Yes (rarely) what type of physical activity do you participate in: walking and other details: 20,000 steps per day seatbelt use: always do you feel safe at home: Yes additional social history: Boyfrienprimitivo-JamirTito Hamzah Patient works at [employer] IUD check Details: RIDDHI MEDLEY is a [...] Weight Infant Gen Labor Lgth Anes thes flavia Posey Provider FOB 06/06/20 Ebck 38 live - full term Male ep idural [facility] Delivery Date: 06/06/20 Last Updated [...] - Pelvic and perineal pain 01/11/25 1414 s CNM> Date _ Mahnaz Lovett [facility] Cosigner Signature: Date (if applicable) CC: ~ [facility]06-09-2025 Progress note Author Mahnaz Lovett [facility] Note Date/Time January 11, 2025 2:14p [facility]'[address], [address] [place] [address] OFFICE VISIT Date of Service: 01/11/25 MR#: [id number] Acct: [id number] Name: RIDDHI MEDLEY Rep #: [id number] : 1995 Provider: PERFECTO Lovett Age/Sex: 29/F Location: [facility] Status: Signed Intake Vital Signs 11/27/24 13:40 01/11/25 14:02 Height 5 ft 2 in 5 ft 2 in Weight: 119 lb 116 lb 6 oz BMI 21.7 21.2 BP 124/80 H 128/83 H Intake Visit Reasons: IUD check Ward Aide Required: No Is patient in pain?: Yes [...] History Grandmother Diabetes Breast cancer Grandfather Diabetes Wfbfz-0-pqitbxdxvpm deficiency Social History Smoking Status: Current every day smoker tobacco type: e-cigarettes Electronic Cigarette Use: with nicotine alcohol intake: never substance use type: does not use caffeine: Yes (rarely) what type of physical activity do you participate in: walking and other details: 20,000 steps per day seatbelt use: always do you feel safe at home: Yes additional social history: Boyfrienprimitivo-Gerardo Goodson Patient works at [employer] IUD check Details: RIDDHI MEDLEY is a [...] Outcome Route Bth Weight Gen Labor Lgth Anes thes ia [facility] Provider FOB 06/06/20 Beck 39 live - full term Male ep idural [facility] Delivery Date: 06/06/20 Last Updated [...] R10.2 - Pelvic and perineal pain 01/11/25 8054 <Electronically signed by Mahnaz boland CNM> Date _ Mahnaz Lovett CNM Cosigner Signature: Date (if applicable) CC: ~ [employer] [employer] Work Phone: 1(336) 637-951804-25-2025 Evaluation note* Diagnosis Onset Date Resolution Status Admit Date Contraceptive management acute November 27, 2024 1:20pm IUD check up acute January 11 1:57pm Pelvic pain acute January 11 1:57pm Urinary tract infection acute A ugust 2024 10:51am [facility] Work Phone: 1(393) 178-808704-25-2025 Evaluation note* Diagnosis Onset Date Resolution Status Admit Date Contraceptive management acute November 27, 2024 1:20pm IUD check up acute January 11 1:57pm Pelvic pain acute January 11 1:57pm Chronic bladder pain acute Augu st 2024 10:51am Other specified disorders of bladder acute March 05, 2025 10:51am Pelvic pain acute March 05 10:51am Urinary tract infection acute A ugust 2024 10:51am [facility] Work Phone: 1(147) 480-417403-31-2025 Instructions* Patient Instructions* Rod Rosales APRN.CNS - 11/02/2024 11:38 AM EDT - Continue taking Citalopram 10 mg daily as prescribed. - Continue taking Buspirone as prescribed by your care administrative tech. - Follow up with your care administrative tech at the end of November for a change in control. - Consider reducing vaping as part of a long-term health goal. - Next follow-up appointment is in February. documented in this encounterH[facility]03-[facility] History of Present illness Narrative* Rod Rosales [...] clots. She is followed by Dr. Jackson ANIMAL CONTROL SUPERVISOR. She reports that she has a Nexplanon [...] 2-year laura of current control use. 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 Dr. Manuel Garcia ANIMAL CONTROL SUPERVISOR rizatriptan 5 mg disintegrating tablet Take 1 [...] fluctuations related to current control method. - Wood Machinist plans to change control at the end of November. - Advised to monitor for any changes in menstrual regularity following the switch. 3. Encounter for immunization (Z23) - Discussed flu vaccine, COVID booster, and pneumonia vaccine; patient declined. 4. Migraine with aura and without status migrainosus, not intractable (G43.109) - Wood Machinist prescribed buspirone, which she reports taking nightly with other medications. - Reports improvement in anxiety and no current issues with migraines. 5. Tobacco use Z72.0 Cessation endorsed. Rod Rosales APRN.CNS Medical Decision Making: Problems: Moderate: 1+ chronic illnesses with change Risk: Moderate: Drug management Medical Decision Making Level: 4 - Moderate documented in this encounterHarrison [facility] Hospital03-31-2025 NoteHNO ID: [id number] Author: ROD ROSALES APRN.CNS Service: ? Author Type: Nurse Specialist Type: [...] clots. She is followed by Dr. Jackson ANIMAL CONTROL SUPERVISOR. She reports that she has a Nexplanon [...] 2-year laura of current control use. 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 Dr. Manuel Garcia ANIMAL CONTROL SUPERVISOR rizatriptan 5 mg disintegrating tablet Take 1 [...] fluctuations related to current control method. - Wood Machinist plans to change control at the end of November. - Advised to monitor for any changes in menstrual regularity following the switch. 3. Encounter for immunization (Z23) - Discuss (more content not included)...[facility]03-17-2025 Evaluation note* Diagnosis Onset Date Resolution Status Admit Date Contraceptive management acute October 19, 2024 8:25am Mood disorder acute October 19, 2024 8:25am Contraceptive management acute November 27, 2024 1:20pm IUD check up acute January 11 1:57pm Pelvic pain acute January 11 1:57pm [facility] Work Phone: 1(405) 429-631703-13-2025 Progress note* Result Encounter Note - Rod Rosales APRN.CNS - 10/15/2024 12:56 PM EDT Labs within normal limits. [facility]03-13-2025 Miscellaneous Notes* Result Encounter Note - Rod Rosales APRN.CNS - 10/15/2024 12:56 PM EDT Labs within normal limits. documented in this encounterHarrison Community Hospital01-31-2025 History of Present illness Narrative* Rod Rosales APRN.MILO - 09/04/2024 2:00 PM EST SUBJECTIVE: Pneumococcal [...] clots. She is followed by Dr. Jackson ANIMAL CONTROL SUPERVISOR. Shereports that she has a Nexplanon in [...] route one time only. Dr. Manuel Garcia ANIMAL CONTROL SUPERVISOR cephALEXin (KEFLEX) 250 mg capsule Take 1 [...] normal. She follows with Dr. Pepe Mclaughlin ANIMAL CONTROL SUPERVISOR, due for follow-up.She has a Nexplanon in place. Endorse making an appointment with ANIMAL CONTROL SUPERVISOR rfor recheck. 2. Migraine with aura and [...] TO PSYCHIATRY - CITALOPRAM 10 MG TABLET Rdo Rosales APRN.CNS Medical Decision Making: Problems: Moderate: 2+ stable chronic illnesses Data: Unique test(s) ordered: 3+ Risk: Moderate: Drug management Medical Decision Making Level: 4 - Moderate documented in this encounterHarrison [facility] Hospital01-31-2025 NoteHNO ID: [id number] Author: ROD ROSALES APRN.CNS Service: ? Author Type: Nurse Specialist Type: [...] clots. She is followed by Dr. Jackson ANIMAL CONTROL SUPERVISOR. She reports that she has a Nexplanon [...] route one time only. Dr. Manuel Garcia ANIMAL CONTROL SUPERVISOR cephALEXin (KEFLEX) 250 mg capsule Take 1 [...] normal. She follows with Dr. Pepe Mclaughlin ANIMAL CONTROL SUPERVISOR, due for follow-up. She has a Nexplanon in place. Endorse making an appointment with ANIMAL CONTROL SUPERVISOR rfor recheck. 2. Migraine with aura and [...] - CITALOPRAM 10 MG TABLET Rod Rosales APRN.DIRECTOR SALES SUPPORT Medical Decision Making: Problems: Moderate: 2+ stable chronic illnesses Data: Unique test(s) ordered: 3+ Risk: Moderate: Drug management Medical Decision Making Level: 4 - [facility]erate[facility] NoteHNO ID: [id number] Author: CATHERINE MARIA APRN.CNP Service: ? Author Type: Nurse Practitioner Type: Progress Notes Filed: 01/14/2024 17:06 Note Text: Patient did not come in for her initial visit scheduled with the provider today. [facility]06-11-2024 History of Present illness Narrative* Catherine Maria APRN.CNP - 01/14/2024 5:05 PM EDT Patient did not come in for her initial visit scheduled with the provider today. documented in this encounterHarrison [facility] Hospital06-03-2024 NoteHNO ID: [id number] Author: ELKIN OLIVA MD Service: ? Author Type: Physician Type: Progress Notes Filed: 02/06/2024 22:29 Note Text: This note was created using NoteWriter. Ivana Vazquezbo is a 28 year old female. Patient [...] regular exercise and adequate sleep. Elkin Oliva [facility]06-03-2024 History of Present illness Narrative* Elkin Oliva MD - 01/06/2024 5:29 PM EDT This note was created using [employer]. Subjective Riddhi Medley is a 28 year [...] sleep. Elkin Oliva MD documented in this encounterHarrison Community Hospital04-12-2024 Miscellaneous Notes* Telephone Encounter - Rod Rosales APRN.CNS - 11/15/2023 4:46 PM EDT Okay, please schedule. Assuming this is for PTSD. * Telephone Encounter - Loretta Pham LPN - 11/15/2023 10:36 AM EDT Patient calling requesting a referral to Psychiatry in the building please. Pending not sure which on is needed. Please advise documented in this encounterHarrison Community Hospital02-22-2024 Discharge summary Author Emma Schilling [facility] September 26, 2023 8:50am Note Date/Time September 26, 2023 7:29am [facility] Medical Records Department [address] [place] [id number] Instructions for Home/Discharge Instructions 09/26/23 0729 MR#: [id number] Acct: [id number] Name: RIDDHI MEDLEY SENG Rep #:[id number] : 1995 28 From: Emma Langford PCP: Dr. Elkin Oliva MD Status:RE G [facility] Discharge Instructions Diet Discharge Diet: No restrictions [...] CC: Dr. Elkin Oliva MD ~ Signed [facility] Work Phone: 1(141) 932-129402-22-2024 Procedure [facility] 07-10-2023 Miscellaneous Notes* Telephone Encounter - Nikky [...] in 2 hours if needed. Pharmacy Name: [facility] Phone #: [phone] 03/07/2023 March 07, 2023 28 years old [...] for PTSD 30 tablet 11 rizatriptan (MAXALT DIRECTOR OF CULTURE) 5 mg disintegrating tablet Take 1 tablet [...] Gatherings with Friends and Family: Never Attends Yarsani Services: Never Active Member of Clubs or Organizations: No Attends Club or Organization Meetings: Never Marital Status: Living with partner No diagnosis found. Assessment and Plan Patient is 28 years old with chronic migraine headache,intractable as detailed above Discussed headache management Acute and preventive No orders found for this visit on 03/07/23. documented in this encounterHarrison Community Hospital11-10-2023 NotePap Smear Specimen AdequacyNovember 2022 12:36pmComment.Satisfactory for evaluation. Endocervical and/or squamous metaplasticcells (endocervical component)are present.[facility] A#[id number] Memorial HospitalComment on above: Satisfactory for evaluation. Endocervical and/or squamous metaplasticcells (endocervical component)are present.06-14-2023 NotePap Smear Specimen Adequacy June 14, 2023 12:36pmComment.Satisfactory for evaluation. Endocervical and/or squamous metaplasticcells (endocervical component)are present.[facility] A#[id number] Memorial HospitalComment on above:Satisfactory for evaluation. Endocervical and/or squamous metaplasticcells (endocervical component)are present.06-14-2023 NotePap Smear Specimen AdequacyNov2022 12:36pmComment.Satisfactory for evaluation. Endocervical and/or squamous metaplasticcells (endocervical component)are present.[facility] A#[id number] Memorial HospitalComasc[facility] on above:Satisfactory for evaluation. Endocervical and/or squamous metaplasticcells (endocervical component)are present.06-14-2023 NotePap Smear Specimen AdequacyNov2022 12:36pmComment.Satisfactory for evaluation. Endocervical and/or squamous metaplasticcells (endocervical component)are present.[facility] A#[id number] Memorial HospitalComascension [facility] on above:Satisfactory for evaluation. Endocervical and/or squamous metaplasticcells (endocervical component)are present.03-27-2023 Miscellaneous Notes* Telephone Encounter - Pat Edmond RN - 03/27/2023 4:27 PM EDT Call to patient. She would like prior authorization submitted to try to get the full 12 tablets permonth. Prior authorization submitted via [facility] meds. (Arevalo: [id number]) * Telephone Encounter - Erlin Valente RN [...] her, her ID number with Medicaid is [id number]. She needs a PA to get more than nine tablets in 30 days -- documented in [facility] encounterH[facility]23 Hospital Discharge instructions Patient Education 03/26/2023 13:49:33 [facility] Discharge Instructions Template (05/2018) (CUSTOM) DALIA [...] us better serve our patients. Form: 1522 (19823) R: 11/1103/26/2023 13:48:11 1-[facility] URO Cystoscopy w/ Bladder Biopsy (05/2022)(CUSTOM) [...] Up Care 01/16/2023 14:56:35 With:JJ VELÁZQUEZ MD, [facility] Address: [address] [place] [phone] When: Unknown Comments:Follow-up as scheduled [facility] 08-22-2023 Summary of episode note Discharge Instructions Thank you for allowing [facility] to assist you with your healthcare needs. The following is importantdischarge information regarding your hospital visit. Your Care Team ELKIN OLIVA MD Your Diagnosis Bladder pain What to do next Scheduled Follow-Up Appointments Appointment Type When With Where Contact InformationURO OV Post Op 04/10/2023 11:10 AM EDT [facility] App[facility] with JJ [facility]QUEZ MD, [facility] Why: Follow-up as scheduled Where: [address] [place] [phone] The Following Activity and Diet Have Been [...] Bladder pain Duration: 3 Days Pickup at [facility] 1811 Unchanged oxybutynin (oxybutynin 5 mg/ 24 hours [...] cap by mouth Every day Pharmacy Information [facility] 181: [address] [place], [place] [phone] Please take this list to your next [...] help us better serve our patients. Form: 7644 (39726) R: 11/11 CYSTOSCOPY WITH BLADDER BIOPSY CYSTOSCOPY [...] to receive it can visit one of [facility] vaccine clinics. There are many vaccine clinic locations within the [facility]. For locations and available times, please visit [email or web address].[place].gov/. It is important to note that some COVID mobile vaccine clinics are held outdoors and may be canceled in rainy or stormy conditions. To learn more about pediatric vaccinations (ages 5-11), we invite you to visit the [facility] webpage. [email or web address]/[email or web address] [email or web address].htmlTo learn more about the COVID-19 vaccine, we invite you to visit the CDC website for a list of frequently asked questions.https://www.cdc.gov/coronavirus/2019-ncov/vaccines/faq.html [facility] Patient Portal Access Instructions: Stay connected with your healthcare team and access your personal medical information anytime with the [facility] Patient Portal. Please follow the directions below to create your [facility] account: 1.Access the email account you provided upon registration to the hospital/physician office.2.Look for an invitation email from [facility].3.Open the email and access the invitation link: AcceptInvitation to [facility].4.Fill in the required bryant to create your account. To access your account, visit [facility]. Click the blue button labeled Access Patient Portal and then log in with the username and password that you created in the steps above. You will be able to view your test results, lab results, a summary of your visits, upcoming appointments and more. There is also a convenient messaging option where you can send secure messages to your p rovider. In addition, you will have the ability to download any documents or summaries to your computer and/or send the information securely to a physician. Remember that your healthcare information is confidential, so carefully consider who you will allowto register on the [facility] Patient Portal for access to your information. You can also access the [facility] Patient Portal on the [facility] georgi. Simply click on Patient Portal and then log into your account. If you would like to receive a full copy of your medical records, please contact the [facility] Medical Records Department by calling [phone], Saturday through Saturday between 8 a.m. and [...] Call your local pharmacy or go to [email or web address] to find one close to you.3.Make use of household items: Use cat litter or old coffee grounds to dispose medications if other options arenot available. Mix your drugs with these household products, seal them in an airtight container andthrow it into the garbage. Call [facility]: [phone] to be sure your drugs can be [...] aware that I should contact my doctor. Patient/Help Desk Support Specialist Signature: Date/Time: Relationship to Patient: Witness Name/Signature: Date/Time: [id number] Anesthesiology Consult note Patient: RIDDHI MEDLEY Age: [...] CATALINA GUPTA MD on 03/26/2023 01:08 PM [id number] Anesthesiology Progress note Patient: RIDDHI MEDLEY Age: [...] cystitis (chronic) with hematuria / SNOMED CT 532619365 / Confirmed Chronic bladder pain / SNOMED CT 4716216384 / Confirmed OAB (overactive bladder) / SNOMED CT 0654578605 / Confirmed Squamous cell metaplasia of urinary bladder / SNOMED CT 206733382 / Confirmed UTI symptoms / SNOMED CT 804863604 / Confirmed, Active Problems (15) Acid reflux [...] Mother Father Sister Brother Procedure history: Cystoscopy (55239157) in the month of 04/2022 at 27 Years. delivery (0759562144) in 2019 at 25 Years. Social History [...] Resp Rate 18 br/min (MAR 26 09:38) UST008 mmHg (MAR 26 09:38) DBP77 mmHg (MAR 26 09:38) Measurements from flowsheet : Measurements 03/26/2023 9:38 EDT Height 157.5 cm Height in inches 62 inch(es) Admission Weight 47.6 kg Weight Lbs 104.7 lb Weight Method Actual [place] Body Weight 50.12 kg Admission Body Mass Index 19.19 m2 General: Alert and oriented, No acute distress. Dentition Evaluation: Intact, Own teeth. Respiratory: Symmetrical chest wall expansion. Cardiovascular: Normal peripheral perfusion. Neurologic: Alert, Oriented. Review / Management Results review: No qualifying data available . Assessment and Plan [place] [employer] Anesthesiologists (ASA) physical status classification: Class II. Anesthetic Preoperative Plan Anesthetic technique: General. Maintenance airway: Laryngeal mask airway. Postoperative pain management: Per surgeon. Informed consent: signed by patient. Digitally Signed by SANTANA GIORDANO MD on 03/26/2023 10:21 AM [id number] History of Present illness Narrative* Elkin Oliva [...] capsule by mouth once daily. rizatriptan (MAXALT DIRECTOR OF CULTURE) 5 mg disintegrating tablet Take 1 tablet [...] sleep. Elkin Oliva MD documented in this encounterHarrison [facility] Hospital08-21-2023 Miscellaneous Notes* Telephone Encounter - Deborah Holder [...] Thank you. MYRTLE Jarrett documented in this encounterHarrison Community Hospital08-21-2023 Miscellaneous Notes* Telephone Encounter - Nikky Sosa - 03/25/2023 11:27 AM EDT Physician: Dr. Worthy Call from pharmacy requesting refill. Please E-Scribe Last OV: 03/07/[address] Worthy Future OV: no future appointments scheduled with Dr. Worthy Requested Prescriptions Pending Prescriptions Disp Refills rizatriptan (MAXALT DIRECTOR OF CULTURE) 5 mg disintegrating tablet 12 tablet 2 Sig: Take 1 tablet by mouth as needed. May repeat in 2 hours if needed. Pharmacy Name: [facility] Phone #: [phone] 03/07/2023 Assessment and Plan Patient is 28 years old with migraine headache as detailed above Discussed headache management Acute and preventive No orders found for this visit on 03/07/23. documented in this encounterHarrison Community Hospital08-11-2023 Note. MICRO - Microbiology PROCEDURE: Urine Culture [...] Locations *1: This test was performed at: [address], [address] [place] [address] ([facility]03-08-2023 Note. MICRO - Microbiology PROCEDURE: Urine Culture [...] Locations *1: This test was performed at: [address], [address] [place] [address] ([place])03-07-2023 History of Present illness Narrative* Radames Worthy [...] for PTSD 30 tablet 11 rizatriptan (MAXALT DIRECTOR OF CULTURE) 5 mg disintegrating tablet Take 1 tablet [...] Gatherings with Friends and Family: Never Attends Yarsani Services: Never Active Member of Clubs or [...] patient and /or family. Radames Worthy M.D. [facility] [place] Department of Neurology documented in this encounterHarrison Community Hospital07-27-2023 Miscellaneous Notes* Telephone Encounter - Gayathri Maxwell LPN - 02/28/2023 4:25 PM EDT Spoke with Dr. Worthy to let her know the patients concern about the Elavil contributing to your headaches, Dr. Worthy said it is appropriate to discontinue the Elavil at this time. [employer] messagewas sent to the patient to make [...] 03/07/2023 Last prescribed: 01/29/2023 documented in this encounterHarrison Community Hospital07-18-2023 Miscellaneous Notes* Telephone Encounter - Erlin Valente [...] 02/18/2023 9:27 AM EDT Rossana, pharmacist, with [facility] pharmacy in [place], called stating that amitriptyline (ELAVIL) 10 mg tablet interacts with Zoloft, which patient already takes. Pharmacist needs clarification if this is known to Dr. Worthy, and if it is documented that she will be watching for Serotonin Syndrome? Please advise and call [facility] pharmacy at [phone] with recommendations. Michelle Gr documented in this encounterHarrison Community Hospital07-10-2023 Miscellaneous Notes* Telephone Encounter - Nova Mcclelland LPN - 02/11/2023 3:31 PM EDT Forms refaxed and patient updated via [employer]. Nova Mcclelladn LPN * Telephone Encounter - Alexandra Park LPN - 02/07/2023 11:55 AM EDT Pt calling to check status.on [facility] papers. See phone note form 01-02-23. Pt came in and signed her part and they should of been faxed to [employer]. Pt had the forms re-faxed on 01-24-23 because [employer] not recevied them. Pt spoke with [employer] 1 week ago and they have not received the form. Please advise pt anupam. Alexandra Park LPN * Telephone Encounter - Julia Bullard RN - 01/24/2023 9:18 AM EDT Patient calls to report that she was in and signed the release form for FMLA paperwork to be sent to [employer] but they haven't received it yet. Patient asking for forms to be faxed. The fax number for [employer] is on the forms. Julia Bullard RN documented in this encounterHarrison Community Hospital06-27-2023 History of Present illness Narrative* Elkin Oliva MD - 01/29/2023 4:05 PM EDT This note was created using [employer]. Subjective Riddhi Medley is a 27 year old female. Patient presents with: ED Follow-up: [facility] ED follow up from 01/26/2023 SUBJECTIVE: [...] Wt 47.6 kg (105 lb) LMP 09/08/2019 FfJ028% BMI 19.20 kg/m Physical Exam Constitutional: Appearance: [...] indicated. Elkin Oliva MD documented in this encounterHarrison Community Hospital06-27-2023 History of Present illness Narrative* Radames Worthy [...] Gatherings with Friends and Family: Never Attends Yarsani Services: Never Active Member of Clubs or [...] family. January 29, 2023 Radames Worthy M.D. [facility] [place] Department of Neurology documented in this encounterHarrison Community Hospital06-26-2023 Miscellaneous Notes* Telephone Encounter - Michelle Hotte EMERGENCY SPECIALIST - 01/28/2023 4:21 PM EDT No answer. Left providers message and ask to call office and ask to speak to a nurse with any questions or concerns. * Telephone Encounter - Rod Rosales APRN.CNS - 01/28/2023 4:14 PM EDT Can add Pyridium. Prescription sent to [facility] pharmacy * Telephone Encounter - Alexandra Park LPN - 01/28/2023 1:54 PM EDT Pt went to [facility] ER 01-26-23. Pt was dx with [...] burning, frequency and blood in the urine. [facility] ER FU has been scheduled for tomorrow 01-29-23. Alexandra Park LPN documented in this encounterHarrison Community Hospital06-22-2023 Miscellaneous Notes* Telephone Encounter - Alexandra Park [...] you. Alexandra Park LPN documented in this encounterHarrison Community Hospital06-01-2023 Miscellaneous Notes* Telephone Encounter - Michelle Proctor [...] 01/02/2023 6:44 PM EDT Forms received from [employer] concerning patient disability/leave. Provider to review and address. Nova Mcclelland LPN documented in this encounterHarrison Community Hospital05-30-2023 History of Present illness Narrative* Elkin Oliva MD - 01/01/2023 11:05 AM EDT This note was created using [employer]. Subjective Riddhi Medley is a 27 year [...] trigger could be the overhead lights at [facility]. January 16 is cystoscopy with [...] regular exercise and adequate sleep. 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 Plan VV after get [employer] paperwork for FMLA patient states needs corrected. I spent a total of 38 minutes on the date of the service which included [id number]-fo-ehfd patient care, completing clinical documentation, performing a medically appropriate examination, counseling and educating the patient/family/caregiver, and ordering medications, tests, or procedures. Elkin Oliva MD documented in this encounterHarrison Community Hospital05-17-2023 History of Present illness Narrative* Mirtha Savage APRN.CNP - 12/19/2022 11:36 AM EDT Pt. Cancelled appointment while performing intake review. Sent [employer] message as difficulty connecting with patient. documented in this encounterHarrison Community Hospital05-17-2023 History of Present illness Narrative* Ina Julien APRN.CNP - 12/19/2022 11:35 AM EDT Patient connected and then immediately lost connection' Appointment cancelled. Fee Waived Ina Julien APRN.CNP documented in this encounterHarrison Community Hospital04-06-2023 Instructions* Patient Instructions* Rod Rosales APRN.CNS - 11/08/2022 9:40 AM EDT Take naproxen 2 times daily with meals for the next 2 to 3 days. Then take as needed at the first sign of headache or aura Try sertraline once daily for PTSD. documented in this encounterHarrison Community Hospital04-06-2023 History of Present illness Narrative* Rod Rosales [...] bladder concerns and mental stability. Previous PCP: [facility] last seen one year ago. ER/Hospitalization: [place] [facility] 2019. September 06, 2022 [facility] Outside records: care everywhere, [facility]. [place] ED visit 2019 4 abdominal pain dysuria and nausea. ANIMAL CONTROL SUPERVISOR: Cary Jackson MD Maternal Medicine [place] Seen by Emma Schilling MD at [facility] for report of incontinence and blood [...] the first sign of headache or aura Chuy plascencia nausea Would like FMLA form completed for November 03 work. 2. PTSD (post-traumatic stress disorder) - [...] that she was seen by urogynecologist at [facility] and underwent cystoscopy. She reports has been referred to another urologist for possible resection. She states that the urologist wants to repeat cystoscopy to determine if surgery is needed. 1 mo recheck Rod Rosales APRN.DIRECTOR SALES SUPPORT headache, PTSD 6 mo follow up Elkin Oliva MD - establish Rod Rosales APRN.DIRECTOR SALES SUPPORT Medical Decision Making: Problems: Moderate: 2+ stable chronic illnesses Risk: Moderate: Drug management Medical Decision Making Level: 4 - Moderate documented in this encounterHarrison Community Hospital04-04-2023 Miscellaneous Notes* Telephone Encounter - Michelle Proctor LPN - 11/06/2022 2:18 PM EDT FMLA paperwork has been received and at nurse's desk for appointment on 11/08/22 * Telephone Encounter - Eugenie Grewal - 11/05/2022 1:06 PM EDT Patient called to report that [employer] will be faxing FMLA paper work prior to the patient's appointment on 11/08/22. documented in this encounterHarrison Community Hospital20[address] Schilling [facility] September 06, 2022 12:13pm Note Date/Time September 06, 2022 1 0:47am [facility] Medical Records Department [address] [place] [address] Instructions for Home/Discharge Instructions 09/06/22 1046 MR#: [id number] Acct: [id number] Name: RIDDHI MEDLEY Rep #:[id number] : 1995 27 From: Emma Langford PCP: Care Physician,No Primary Status :[facility] Discharge Instructions Diet Discharge Diet: No restrictions [...] Attending Provider: Emma Schilling Primary Care Provider: Care Physician,No Primary Discharge Orders/Prescriptions Prescriptions: New oxycodone-acetaminophen [Percocet] [...] CC: No Primary Care Physician ~ Signed [facility] Work Phone: 1(697) 462-818702-02-2023 [facility] note* CATALINA GUPTA MD: PERFORM, SIGN, VERIFY Event Display: Anesthesiology Consultation Authored Date: [id number] Patient: RIDDHI MEDLEY Age: 28 years Sex: [...] CATALINA GUPTA MD on 03/26/2023 01:08 PM [facility] Discharge summary Author Dr. Montana [facility] January 26, 2023 11:25am Note Date/Time January 26, 2023 9:35 am [facility] Medical Records Department [address] [facility] [place] [address] Emergency Department Summary 01/26/23 MR#: [id number] Acct: [id number] Name: RIDDHI MEDLEY Rep #:[id number] : 1995 27 From: Manny Montana DO [...] #30 tabs 05/03/22 [Rx Last Taken Unknown] ioflqau-dtntaomtrsucd-ngncflpf 250 mg-250 mg-65 mg tablet (Excedrin Migraine) [...] History Grandmother Diabetes Breast cancer Grandfather Diabetes Ptqpf-8-yckkbwffnzm deficiency Surgical History delivery delivered History of [...] social history: Boyfriend-Gerardo Goodson Patient works at [employer] ED Constitutional Constitutional ED: Denies chills or [...] % (Auto) 65.2 Lymph % (Auto) 28.8 [place] % (Auto) 4.4 Eos % (Auto) 0.8 [...] Clarity Cloudy Urine pH 8.0 Ur Specific [place] 1.015 Urine Protein 500 H Urine Glucose [...] your Primary Care Provider. Call [facility] ([phone]) or report to the closest Emergency Room. Call 911 if necessary. 01/26/23 1125 <Electronically signed by Manny Montana DO> Cosigner Signature (if applicable): CC: Dr. Elkin Oliva MD ~ Signed [facility] Work Phone: Evaluation + Plan note No data available for this section [facility] Evaluation + Plan note Future Appointments Appointment Date:03/13/2023 10:00:00 AM Scheduled Provider:JOSEPH POE Location:UROLOGY Appointment Type:URO OV Physical 20 min Appointment Date:03/26/2023 09:10:00 AM Scheduled Provider: Location:Main OR Appointment Type:Surgery - [facility] Appointment Date:04/10/2023 11:00:00 AM Scheduled Provider:JJ VELÁZQUEZ MD Location:UROLOGY Appointment Type:URO OV Post Op Future Scheduled Tests Laboratory* Basic Metabolic Panel 01/16/23 * Complete Blood Count 01/16/23 [facility] Evaluation + Plan note Future Appointments Appointment Date:03/13/2023 10:00:00 AM Scheduled Provider:JOSEPH POE Location:UROLOGY Appointment Type:URO OV Physical 20 min Appointment Date:03/26/2023 10:20:00 AM Scheduled Provider: Location:Main OR Appointment Type:Surgery [facility] Urology Appointment Date:04/10/2023 11:00:00 AM Scheduled Provider:JJ VELÁZQUEZ MD Location:UROLOGY Appointment Type:URO OV Post Op Future Scheduled Tests Laboratory* Pathology Non-Electroplating Technician Request 03/06/23 * Basic Metabolic Panel 01/16/23 * Complete Blood Count 01/16/23 [facility] evaluation + Plan note Future Appointments Appointment Date:03/26/2023 10:20:00 AM Scheduled Provider: Location:Main OR Appointment Type:Surgery [facility] Urology Appointment Date:04/10/2023 11:10:00 AM Scheduled Provider:JJ VELÁZQUEZ MD Location:UROLOGY Appointment Type:URO OV Post Op [facility] evLybrate + Plan note Future Appointments Appointment Date:04/10/2023 11:10:00 AM Scheduled Provider:JJ VELÁZQUEZ MD Location:UROLOGY Appointment Type:URO OV Post Op [facility] evaluation noteNo assessment information available [facility] Work Phone: evaluation note* Diagnosis Onset Date Resolution Status Abnormal uterine bleeding ac mickey Mixed incontinence urge and stress acute [facility] Work Phone: evaluation note* Diagnosis Onset Date Resolution Status Bladder ulcer acute [facility] Work Phone: evaluation note* Diagnosis History of headache- Primary Personal history of other specified diseases PTSD (post-traumatic stress disorder) Posttraumatic stress disorder Acute nonintractable headache, unspecified headache type Interstitial cystitis Chronic interstitial cystitis documented in this encounter [facility] note* Diagnosis Treatment not available- Primary Procedure not carried out for other reasons documented in this encounter [facility] note* Diagnosis Procedure and treatment not carried out for other reasons- Primary documented in this encounter [facility] note* Diagnosis Migraine with aura and without status migrainosus, not intractable- Primary Migraine with aura, without mention of intractable migraine without mention of status migrainosus Chronic daily headache Headache PTSD (post-traumatic stress disorder) Posttraumatic stress disorder Interstitial cystitis Chronic interstitial cystitis Eosinophilic cystitis Other specified types of cystitis documented in this encounter [facility]* Diagnosis Migraine with aura and without status migrainosus, not intractable- Primary Migraine with aura, without mention of intractable migraine without mention of status migrainosus Chronic daily headache Headache documented in this encounter [facility]* Diagnosis Acute cystitis with hematuria- Primary Acute cystitis documented in this encounter [facility]* Diagnosis Chronic daily headache- Primary Headache documented in this encounter [facility]* Diagnosis Muscle spasm- Primary Spasm of muscle Migraine with aura and without status migrainosus, not intractable Migraine with aura, without mention of intractable migraine without mention of status migrainosus Chronic daily headache Headache documented in this encounter [facility]* Diagnosis Onset Date Resolution Status Bladder spasms acute Urinary tract infection acut e Encounter for routine gynecological examination noneactive [facility] Work Phone: Evaluation note* Diagnosis Onset Date Resolution Status Bladder spasms acute Urinary tract infection acut e Encounter for routine gynecological examination noneactive Contraceptive management acu te LGSIL on Pap smear of cervix acute [facility] Work Phone: Evaluation note* Diagnosis PTSD (post-traumatic stress disorder)- Primary Posttraumatic stress disorder documented in this encounter [facility]* Diagnosis NO SHOW- Primary documented in this encounter [facility]* Diagnosis Migraine with aura and without status migrainosus, not intractable- Primary Migraine with aura, without mention of intractable migraine without mention of status migrainosus Muscle spasm Spasm of muscle Major depressive disorder in partial remission, unspecified whether recurrent (HCC) [facility] Diagnosis Irregular menses- Primary Irregular menstrual cycle Migraine with aura and without status migrainosus, not intractable Migraine with aura, without mention of intractable migraine without mention of status migrainosus Chronic daily headache Headache PTSD (post-traumatic stress disorder) Posttraumatic stress disorder [facility] Diagnosis PTSD (post-traumatic stress disorder)- Primary Posttraumatic stress disorder Irregular menses Irregular menstrual cycle Encounter for immunization Need for other specified prophylactic vaccination against single bacterial disease Migraine with aura and without status migrainosus, not intractable Migraine with aura, without mention of intractable migraine without mention of status migrainosus Tobacco use Tobacco use disorder documented in this encounter [facility] Discharge instructions No data available for this section [facility] Progress note No data available for this section [facility] Reason for referral (narrative)No reason for referral information availableG[facility] Work Phone: Summary Purpose Family History No Family History Records Found Relationship Condition Age at Onset Recorded Date/T [place] grandmother Diabetes mellitus Unknown Malignant neoplasm of breast Unknown grandfather Diabetes mellitus Unknown [id number] deficiency Unknown Relationship Condition Age at Onset Recorded Date/T [place] Not Specified Coagulation disorder Unknown Malignant neoplasm Unknown grandmother Diabetes mellitus Unknown Malignant neoplasm of breast Unknown grandfather Diabetes mellitus Unknown [id number] deficiency Unknown Advance Directives No Advanced Directives Records Found Advance Directive Response Recorded Date/ Time Living Will No November 16, 2021 7:55pm Power of Designer And Patternmaker No November 16 7:55pm Advance Directive Response Recorded Date/ Time Living Will Yes April 26, 2022 2:56pm Power of Designer And Patternmaker No April 2:56pm Advance Directive Response Recorded Date/ Time Living Will No August 30 10:03am Power of Designer And Patternmaker No August 30, 2022 10:03am Advance Directive Response Recorded Date/ Time Living Will No January 26, 2023 8:32am Power of Designer And Patternmaker No January 26 8:32am Advance Directive Response Recorded Date/ Time Living Will No January 26, 2023 7:32am Power of Designer And Patternmaker No January 26 7:32am Advance Directive Response Recorded Date/ Time Living Will No July 19, 023 2:42pm Power of Designer And Patternmaker No July 19, 2023 2:42pm Advance Directive Response Recorded Date/ Time Living Will No August 28 4:14pm Power of Designer And Patternmaker No August 28, 2023 4:14pm Advance Directive Response Recorded Date/ Time Living Will No September 18, 2 024 2:08pm Power of Designer And Patternmaker No September 18, 2023 2:08pm Advance Directive Response Recorded Date/ Time Do you have a Healthcare Power of Designer And Patternmaker? 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 Colposcopy LGSIL gi bleed Reason for Visit Bladder spasms Urinary tract infection Encounter for routine gynecological examination Contraceptive management LGSIL on Pap smear of cervix 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 Colposcopy LGSIL gi bleed Cysto,Biopsy,Fulguration,Bladder Tu Reason for Visit Bladder spasms Urinary tract infection Encounter for routine gynecological examination Contraceptive management LGSIL on Pap smear of cervix 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 Reason for Visit Bladder spasms Urinary [...] Pelvic pain January 11, 2025 1:57p m Chief Complaint Admit Date Hormonal issues/Missed period October 8:25am Nexplanon Removal/Mirena Insertion November 27, 2024 1:20pm IUD check January 11, 2025 1:57p m PELVIC PAIN January 13, 2025 10:1 0am Chief Complaint Admit Date Nexplanon Removal/Mirena Insertion November 27, 2024 1:20pm IUD check January 11, 2025 1:57p m PELVIC PAIN January 13, 2025 10:1 0am OVARIAN CYST March 01, 2025 10:2 2am MED F/U - UTI, HEMATURIA March 05 10:51am Reason for Visit Admit Date Contraceptive management November 27 1:20pm IUD check up January 11, 2025 1:57p m Pelvic pain January 11, 2025 1:57p m Urinary tract infection March 05, 2025 10:51am Reason for Visit Admit Date Contraceptive management November 27 1:20pm IUD check up January 11, 2025 1:57p m Pelvic pain January 11, 2025 1:57p m Chronic bladder pain March 05, 2025 10 :51am Other specified disorders of bladder Aug us2024 10:51am Pelvic pain March 05, 2025 10: 51am Urinary tract infection March 05, 2025 10:51am Chief Complaint Admit Date Nexplanon Removal/Mirena Insertion November 27, 2024 1:20pm IUD check January 11, 2025 1:57p m PELVIC PAIN January 13, 2025 10:1 0am OVARIAN CYST March 01, 2025 10:2 2am MED F/U - UTI, HEMATURIA March 05 10:51am PELVIC PAIN March 22, 2025 4: 25pm Chief Complaint Admit Date Nexplanon Removal/Mirena Insertion November 27, 2024 1:20pm IUD check January 11, 2025 1:57p m PELVIC PAIN January 13, 2025 10:1 0am OVARIAN CYST March 01, 2025 10:2 2am MED F/U - UTI, HEMATURIA March 05 10:51am PELVIC PAIN March 22, 2025 4: 25pm ER FU per JV (see note) March 24 1:15pm Medications Administered Section Inactive Administered Medications - [...] Referral Specialty Diagnoses / Procedures Referred By Contac t Referred To Contact Diagnoses PTSD (post-traumatic stress disorder) Procedures CONSULT TO PSYCHIATRY OFFICE/OUTPATIENT [facility] 60 MINUTES Rod Rosales APRN.CNS [address] [place] [address] Referral ID Status Reason Start Date Expiration Date Visits Requested Visits Authorized [id number] Pending Review PCP Requested Referral 11/15/2023 11/14/2024 1 1 Specialty Diagnoses / Procedures Referred By Contac t Referred To Contact Neurology Diagnoses Migraine with aura and without status migrainosus, not intractable Chronic daily headache Procedures CONSULT TO NEUROLOGY OFFICE/OUTPATIENT [facility] 60-74 MINUTES Elkin Oliva MD [address] [place] [address] Referral ID Status Reason Start Date Expiration Date Visits Requested Visits Authorized [id number] Authorized PCP Requested Referral 01/01/2023 01/01/2024 1 1 Additional Source Comments INFORMATION SOURCE (unrecogn ized section and content) DATE CREATED AUTHOR 10/07/2019 [facility] DATE CREATED AUTHOR AUTHOR'S ORGANIZ ATION 01/30/2023 [facility] DATE CREATED AUTHOR AUTHOR'S ORGANIZ ATION 04/01/2023 [facility] ([place]) DATE CREATED AUTHOR AUTHOR'S ORGANIZ ATION 11/03/2024 [facility] DATE CREATED AUTHOR AUTHOR'S ORGANIZ ATION 04/27/2025 [facility] Goals (unrecognized section and content) Goals may [...] Active Dr. Emma Schilling MD Attending Provider, Rashaad interiano Active Therapist Occupational Relationship Specialty Start Date End Date Elkin Oliva MD [address] [place] [address] PCP - General Internal Medicine 11/08/22 Therapist Occupational Relationship Specialty Start Date End Date Elkin Oliva MD [address] [place] [address] PCP - General Internal Medicine 11/08/22 Therapist Occupational Relationship Specialty Start Date End Date Elkin Oliva MD [address] [place] [address] PCP - General Internal Medicine 11/08/22 Therapist Occupational Relationship Specialty Start Date End Date Elkin Oliva MD [address] [place] [address] PCP - General Internal Medicine 11/08/22 Therapist Occupational Relationship Specialty Start Date End Date Elkin Oliva MD [address] [place] [address] PCP - General Internal Medicine 11/08/22 Therapist Occupational Relationship Specialty Start Date End Date Elkin Oliva MD [address] [place] [address] PCP - General Internal Medicine 11/08/22 Team Status: Active Member Role Status Dates No Primary Care Physician Family Provider Active Dr. Elkin Oliva MD Primary Care Provider Active Team Status: Inactive Member Role Status Dates Dr. Manny Montana DO Emergency Provider Active Dr. Elkin Oliva MD Primary Care Provider Active Therapist Occupational Relationship Specialty Start Date End Date Elkin Oliva MD [address] [facility] [address] PCP - General Internal Medicine 11/08/22 Therapist Occupational Relationship Specialty Start Date End Date Elkin Oliva MD [address] [facility] [place] [address] PCP - General Internal Medicine 11/08/22 Therapist Occupational Relationship Specialty Start Date End Date Elkin Oliva MD [address] [facility] [place] [address] PCP - General Internal Medicine 11/08/22 Therapist Occupational Relationship Specialty Start Date End Date Elkin Oliva MD [address] [facility] [place] [address] PCP - General Internal Medicine 11/08/22 Therapist Occupational Relationship Specialty Start Date End Date Elkin Oliva MD [address] [facility] [place] [address] PCP - General Internal Medicine 11/08/22 Therapist Occupational Relationship Specialty Start Date End Date Elkin Oliva MD [address] [facility] [place] [address] PCP - General Internal Medicine 11/08/22 Team [...] Emma Schilling MD Attending Provider, Referring P jaydon Active Therapist Occupational Relationship Specialty Start Date End Date Elkin Oliva MD [address] [place] [address] PCP - General Internal Medicine 11/08/22 Therapist Occupational Relationship Specialty Start Date End Date Elkin Oliva MD [address] [place] [address] PCP - General Internal Medicine 11/08/22 Team Status: Inactive Member Role Status Dates Dr. Elkin Oliva MD Primary Care Provider Active Dr. Lolly Judge DO Emergency Provider Active Therapist Occupational Relationship Specialty Start Date End Date Elkin Oliva MD [address] [place] [address] PCP - General Internal Medicine 11/08/22 Rod Rosales APRN.DIRECTOR SALES SUPPORT [address] [place] [address] [employer] Internal Medicine 07/13/24 Kimberli Bridges APRN.[employer] [address] [place] [address] [employer] Internal Medicine 07/13/24 Therapist Occupational Relationship Specialty Start Date End Date Elkin Oliva MD [address] [place] [address] PCP - General Internal Medicine 11/08/22 Rod Rosales, SECURITY CONTROL ASSESSOR.DIRECTOR SALES SUPPORT [address] [place] [address] [employer] Internal Medicine 07/13/24 Kimberli Bridges APRN.[employer] [address] [place] [address] [facility] Internal Medicine 07/13/24 Therapist Occupational Relationship Specialty Start Date End Date Elkin Oliva MD [address] [place] [address] PCP - General Internal Medicine 11/08/22 Rod Rosales, SECURITY CONTROL ASSESSOR.DIRECTOR SALES SUPPORT [address] [place] [address] [employer] Internal Medicine 07/13/24 Kimberli Bridges APRN.[employer] [address] [place] [address] [facility] Internal Medicine 10/27/24 Therapist Occupational Relationship Specialty Start Date End Date Elkin Oliva MD [address] [place] [address] PCP - General Internal Medicine 11/08/22 Rod Rosales, SECURITY CONTROL ASSESSOR.DIRECTOR SALES SUPPORT [address] [place], [place] [address] [facility] Internal Medicine 07/13/24 Kimberli Bridges SECURITY CONTROL ASSESSOR.[employer] [address] [place] [address] [facility] Internal Medicine 07/13/24 10/23/24 Kimberli Bridges SECURITY CONTROL ASSESSOR.[employer] [address] [place], [place] [address] [facility] Internal Medicine 10/27/24 Team Status: Inactive [...] January 11, 2025 End: January 11, 2025 Team Status: Active Member Role Status Dates Dr. Elkin Oliva MD Primary Care Provider Active Team Status: Inactive Member Role Status Dates Dr. Elkin Oliva MD Primary Care Provider Active Start: January 13, 2025 End: January 13, 2025 Mahnaz Lovett CNM Attending Provider Active S tart: January 13, 2025 End: January 13, 2025 Mahnaz Lovett CNM Referring Provider Active S tart: January 13, 2025 End: January 13, 2025 Therapist Occupational Relationship Specialty Start Date End Date Elkin Oliva MD [address] [place] [address] PCP - General Internal Medicine 11/08/22 Kimberli Bridges APRN.[employer] [address] [place], [place] [address] [employer] Internal Medicine 10/27/24 Rod Rosales, [place].DIRECTOR SALES SUPPORT [address] [place], [place] [address] [employer] Internal Medicine 12/23/24 Team Status: Active Member Role/Relationship Status Dates Dr. Elkin Oliva MD Primary Care Provider Active Team Status: Inactive Member Role/Relationship Status Dates Dr. Elkin Oliva MD Primary Care Provider Active Start: November 27, 2024 End: November 27, 2024 Dr. Elkin Oliva MD Referring Provider Active Start: November 27, 2024 End: November 27, 2024 Mahnaz Lovett CNM Attending Provider Active S tart: November 27, 2024 End: November 27, 2024 Team Status: Inactive Member Role/Relationship Status Dates Dr. Elkin Oliva MD Primary Care Provider Active Start: January 11, 2025 End: January 11, 2025 Dr. Elkin Oliva MD Referring Provider Active Start: January 11, 2025 End: January 11, 2025 Mahnaz Lovett CNM Attending Provider Active S tart: January 11, 2025 End: January 11, 2025 Team Status: Inactive Member Role/Relationship Status Dates Dr. Elkin Oliva MD Primary Care Provider Active Start: January 13, 2025 End: January 13, 2025 Mahnaz Lovett CNM Attending Provider Active S tart: January 13, 2025 End: January 13, 2025 Mahnaz Lovett CNM Referring Provider Active S tart: January 13, 2025 End: January 13, 2025 Team Status: Inactive Member Role/Relationship Status Dates Dr. Elkin Oliva MD Primary Care Provider Active Start: 2025 Dr. Emma Schilling MD Attending Provider Active Start: 2025 Team Status: Active Member Role/Relationship Status Dates Dr. Elkin Oliva MD Primary Care Provider Active Start: March 01, 2025 Mahnaz Lovett CNM Attending Provider Active S tart: March 01, 2025 Mahnaz Lovett CNM Referring Provider Active S tart: March 01, 2025 Team Status: Inactive Member Role/Relationship Status Dates Dr. Elkin Oliva MD Primary Care Provider Active Start: March 05, 2025 End: March 05, 2025 Dr. Elkin Oliva MD Referring Provider Active Start: March 05, 2025 End: March 05, 2025 Dr. Emma Schilling MD Attending Provider Active Start: March 05, 2025 End: March 05, 2025 Team Status: Inactive Member Role/Relationship Status Dates Dr. Elkin Oliva MD Primary Care Provider Active Start: March 01, 2025 End: March 01, 2025 Mahnaz Lovett CNM Attending Provider Active S tart: March 01, 2025 End: March 01, 2025 Mahnaz Lovett CNM Referring Provider Active S tart: March 01, 2025 End: March 01, 2025 Team Status: Inactive Member Role/Relationship Status Dates Dr. Elkin Oliva MD Primary Care Provider Active Start: March 22, 2025 End: March 22, 2025 Dr. Kvng Chirinos MD Emergency Provider Active Sta rt: March 22, 2025 End: March 22, 2025 Team Status: Inactive Member Role/Relationship Status Dates Dr. Elkin Oliva MD Primary Care Provider Active Start: March 24, 2025 End: March 24, 2025 Dr. Elkin Oliva MD Referring Provider Active Start: March 24, 2025 End: March 24, 2025 Dr. Nohelia Munroe DO Attending Provider Activ e Start: March 24, 2025 End: March 24, 2025 Source Comments (unrecognize d section and content) In the event this informatio n is protected by the Federal Confidentiality of Alcohol and Drug Abuse Patient Records regulations: The Federal rules restrict any use of the information to criminally investigate or prosecute any alcohol or drug abuse patient.[facility] the event this information is protected by the Federal Confidentiality of Alcohol and Drug Abuse Patient Records regulations: The Federal rules restrict any use of the information to criminally investigate or prosecute any alcohol or drug abuse patient.[facility] HospitalIn the event this information is protected by the Federal Confidentiality of Alcohol and Drug Abuse Patient Records regulations: The Federal rules restrict any use of the information to criminally investigate or prosecute any alcohol or drug abuse patient.[facility] HospitalIn the event this information is protected by the Federal Confidentiality of Alcohol and Drug Abuse Patient Records regulations: The Federal rules restrict any use of the information to criminally investigate or prosecute any alcohol or drug abuse patient.[facility] HospitalIn the event this information is protected by the Federal Confidentiality of Alcohol and Drug Abuse Patient Records regulations: The Federal rules restrict any use of the information to criminally investigate or prosecute any alcohol or drug abuse patient.[facility] HospitalIn the event this information is protected by the Federal Confidentiality of Alcohol and Drug Abuse Patient Records regulations: The Federal rules restrict any use of the information to criminally investigate or prosecute any alcohol or drug abuse patient.[facility] HospitalIn the event this information is protected by the Federal Confidentiality of Alcohol and Drug Abuse Patient Records regulations: The Federal rules restrict any use of the information to criminally investigate or prosecute any alcohol or drug abuse patient.[facility] HospitalIn the event this information is protected by the Federal Confidentiality of Alcohol and Drug Abuse Patient Records regulations: The Federal rules restrict any use of the information to criminally investigate or prosecute any alcohol or drug abuse patient.[facility] HospitalIn the event this information is protected by the Federal Confidentiality of Alcohol and Drug Abuse Patient Records regulations: The Federal rules restrict any use of the information to criminally investigate or prosecute any alcohol or drug abuse patient.[facility] HospitalIn the event this information is protected by the Federal Confidentiality of Alcohol and Drug Abuse Patient Records regulations: The Federal rules restrict any use of the information to criminally investigate or prosecute any alcohol or drug abuse patient.[facility] HospitalIn the event this information is protected by the Federal Confidentiality of Alcohol and Drug Abuse Patient Records regulations: The Federal rules restrict any use of the information to criminally investigate or prosecute any alcohol or drug abuse patient.[facility] HospitalIn the event this information is protected by the Federal Confidentiality of Alcohol and Drug Abuse Patient Records regulations: The Federal rules restrict any use of the information to criminally investigate or prosecute any alcohol or drug abuse patient.[facility] HospitalIn the event this information is protected by the Federal Confidentiality of Alcohol and Drug Abuse Patient Records regulations: The Federal rules restrict any use of the information to criminally investigate or prosecute any alcohol or drug abuse patient.[facility] HospitalIn the event this information is protected by the Federal Confidentiality of Alcohol and Drug Abuse Patient Records regulations: The Federal rules restrict any use of the information to criminally investigate or prosecute any alcohol or drug abuse patient.[facility] HospitalIn the event this information is protected by the Federal Confidentiality of Alcohol and Drug Abuse Patient Records regulations: The Federal rules restrict any use of the information to criminally investigate or prosecute any alcohol or drug abuse patient.[facility] HospitalIn the event this information is protected by the Federal Confidentiality of Alcohol and Drug Abuse Patient Records regulations: The Federal rules restrict any use of the information to criminally investigate or prosecute any alcohol or drug abuse patient.[facility] HospitalIn the event this information is protected by the Federal Confidentiality of Alcohol and Drug Abuse Patient Records regulations: The Federal rules restrict any use of the information to criminally investigate or prosecute any alcohol or drug abuse patient.[facility] HospitalIn the event this information is protected by the Federal Confidentiality of Alcohol and Drug Abuse Patient Records regulations: The Federal rules restrict any use of the information to criminally investigate or prosecute any alcohol or drug abuse patient.[facility] HospitalIn the event this information is protected by the Federal Confidentiality of Alcohol and Drug Abuse Patient Records regulations: The Federal rules restrict any use of the information to criminally investigate or prosecute any alcohol or drug abuse patient.[facility] HospitalIn the event this information is protected by the Federal Confidentiality of Alcohol and Drug Abuse Patient Records regulations: The Federal rules restrict any use of the information to criminally investigate or prosecute any alcohol or drug abuse patient.[facility] HospitalIn the event this information is protected by the Federal Confidentiality of Alcohol and Drug Abuse Patient Records regulations: The Federal rules restrict any use of the information to criminally investigate or prosecute any alcohol or drug abuse patient.[facility] HospitalIn the event this information is protected by the Federal Confidentiality of Alcohol and Drug Abuse Patient Records regulations: The Federal rules restrict any use of the information to criminally investigate or prosecute any alcohol or drug abuse patient.[facility] HospitalIn the event this information is protected by the Federal Confidentiality of Alcohol and Drug Abuse Patient Records regulations: The Federal rules restrict any use of the information to criminally investigate or prosecute any alcohol or drug abuse patient.[facility] HospitalIn the event this information is protected by the Federal Confidentiality of Alcohol and Drug Abuse Patient Records regulations: The Federal rules restrict any use of the information to criminally investigate or prosecute any alcohol or drug abuse patient.[facility] HospitalIn the event this information is protected by the Federal Confidentiality of Alcohol and Drug Abuse Patient Records regulations: The Federal rules restrict any use of the information to criminally investigate or prosecute any alcohol or drug abuse patient.[facility] HospitalIn the event this information is protected by the Federal Confidentiality of Alcohol and Drug Abuse Patient Records regulations: The Federal rules restrict any use of the information to criminally investigate or prosecute any alcohol or drug abuse patient.[facility] HospitalIn the event this information is protected by the Federal Confidentiality of Alcohol and Drug Abuse Patient Records regulations: The Federal rules restrict any use of the information to criminally investigate or prosecute any alcohol or drug abuse patient.[facility] HospitalIn the event this information is protected by the Federal Confidentiality of Alcohol and Drug Abuse Patient Records regulations: The Federal rules restrict any use of the information to criminally investigate or prosecute any alcohol or drug abuse patient.[facility] Reason for Visit (unrecogniz ed section and content) Reason Comments FMLA Paperwork Reason Comments Establish Care Reason Comments bladder problems Reason Comments Appointment Cancelled Reason Comments F/U 6 months Reason Comments Disability and leave forms from [employer] Reason Onset Date Comments Refill Request 01/24/2023 Reason Comments [facility] ER update Results Reason Comments FMLA Forms Reason Comments Consult Migraine Specialty Diagnoses / Procedures Referred By Contac t Referred To Contact Neurology Diagnoses Migraine with aura and without status migrainosus, not intractable Chronic daily headache Procedures CONSULT TO NEUROLOGY OFFICE/OUTPATIENT [facility] 60-74 MINUTES Elkin Oliva MD [address] [place] [address] Referral ID Status Reason Start Date Expiration Date V isits Requested Visits Authorized [id number] Closed PCP Requested Referral 01/01/2023 01/01/2024 1 1 Reason Comments Medication Problem amitriptyline (ELAVI L) 10 mg tablet Reason Comments ED Follow-up [facility] ED follow up fro m 01/26/2023 [...] stress disorder) Procedures CONSULT TO PSYCHIATRY OFFICE/OUTPATIENT [facility] 60 MINUTES Rod Rosales, SECURITY CONTROL ASSESSOR.DIRECTOR SALES SUPPORT [address] [place] [address] Referral ID Status Reason Start Date Expiration Date Visits Requested Visits Authorized [id number] Pending Review PCP Requested Referral 11/15/2023 11/14/2024 1 1 Reason Comments F/U 6 months Reason Comments Hormone Problem Reason Onset Date Comments Refill Request 02/10/2025 FOR RECORDS PERTAINING TO PATIENTS WHO ARE [...] BE BASED ON THE PRIMARY CLINICAL RECORDS. [employer] provides no warranty or guarantee of the accuracy or completeness of information in this document.
[2025-04-29 06:27] LABS: Internal QC Validated? YES +Cl - CLEAR BKGD; Pregnancy, Urine Negative Negative; Record Kit Lot#,Urine Preg 0000964736
[2025-04-29] MEDS: Lactated Ringers 1,000 ML 15 ML IV (06:38)
--- NOTE | 2025-04-29 06:49 | HP.PCM_ITS ---
History and Physical Date of Admission: 04/29/25 Date of Service: 04/23/25 MR#: [id number] Acct: [id number] Name: ELIANA GUILLEN Rep #: [id number] : 1995 Provider: Dr. 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 Accompanied by: self Is patient in pain?: Yes (pelvic pain and pressure) Pain scale (1-10): 2 Allergies amitriptyline Adverse Reaction (Intermediate, Verified 04/23/25 12:49) confusion Medications ?Medication ?Instructions ?Recorded ?Confirmed ?Type Lactobacillus acidophilus 250 500 mmu cells PO DAILY 09/18/23 04/23/25 History million cell capsule (Probiotic Acidophilus) d-mannose 500 mg capsule 1,000 mg PO DAILY 09/18/23 04/23/25 Hist ory levonorgestrel (Mirena) 1 device intrauterine ONCE 01/11/2504/05 History ibuprofen 200 mg capsule 200 mg PO Q6H PRN pain 03/24/25 04/23/25 History cephalexin 250 mg capsule 250 mg PO QHS #90 caps 04/02/25 04/23/25 Rx cyclobenzaprine 5 mg tablet 5 mg PO QHS PRN muscle spasm #60 5 04/23/25 Rx tabs mirabegron 50 mg tablet,extended 50 mg PO QDAY 04/23/25 04/23/25 History release 24 hr (Myrbetriq) Nurse's Note: blood in her urine today per patient with very mild pelvic pressure and pain PFSH Medical History Anxiety Restless legs PONV (postoperative nausea and vomiting) Leg cramps Smoker Chronic bladder pain Depression Lesion of cervix Low grade squamous intraepithelial dysplasia Syncope Gastric reflux Constipation History of GI bleed PTSD (post-traumatic stress disorder) Marijuana use Anemia Vapes nicotine containing substance Bladder ulcer Dietary restriction Migraine Gestational hypertension History of depression History of anxiety Surgical History History of cystoscopy History of cystoscopy History of cystoscopy delivery delivered Family History Grandmother Diabetes Breast cancer Grandfather Diabetes Mkqmx-8-rsyqbvpwiat deficiency Other Cancer Coagulation disorder Social History Smoking Status: Current every day smoker tobacco type: e-cigarettes Electronic Cigarette Use: with nicotine alcohol intake: never substance use type: does not use caffeine: Yes (rarely) what type of physical activity do you participate in: walking and other details: 20,000 steps per day seatbelt use: always do you feel safe at home: Yes additional social history: Boyfriend-Gerardo Goodson Patient works at [employer] Reproductive History Menstrual Ab spontaneous: 1 HPI HPI Urology Chief Complaint: preoperative urine and consent Details: ELIANA GUILLEN, is a 30 F. The patient is here for preoperative history and physical prior to cystoscopy with possible biopsy and fulguration. There are no new symptoms since the last visit. She is taking D-mannose 1000mg daily, we discussed making this BID. She is also taking Myrbetriq 50mg and nightly cephalexin. She is seeing blood and having pressure today. The procedure, recovery and expectations were explained. The risks, benefits and alternatives were discussed, including but not limited to, the risks of a nesthesia, bleeding, infection, injury, pain and the need for further intervention. We have discussed the risk of exposure to and/or potential harm posed by the COVID-19 virus with having a surgery/procedure at this time. A joint decision was made at this time to proceed with the scheduled surgery/procedure as indicated on the consent form. ROS Const Constitutional: No chills, fatigue, fever(s), headache(s), night sweats, weakness, weight change, abnormal sleep pattern or change in appetite Eyes Eyes: No change in vision ENT ENT: No headache(s) or dry mouth Resp Respiratory: No cough, chest congestion, shortness of breath or wheezing Cardio Cardiology: Positive for other (No chest pain.); No shortness of breath, irregular heart rhythm or lightheadedness Gastro GI: Positive for other (No nausea.); No abdominal pain, change in bowel habits, constipation, diarrhea or vomiting Musc Musculoskeletal: No abnormal gait Skin Skin: No yellowing of the eye, lesions, itchy eyes, rash or skin ulcer Neuro Neurology: No abnormal gait, confusion, dizziness, weakness, headache(s) or memory loss Psych Psychiatric: No abnormal sleep pattern, No change in appetite, No confusion and No memory loss Endo Endocrine: No fatigue, increased thirst/drinking or weight change Aller/Imm Allergy/Immunologic: No itchy eyes or wheezing Dexter/Lymp Hematologic/Lymphatic: No easy bleeding, easy bruising or enlarged lymph nodes Exam Const General: cooperative, healthy appearing, comfortable and no acute distress [facility] Head: normocephalic and atraumatic Ears: hearing grossly normal bilaterally and external ears normal Nose: external nose normal Eyes General: appearance normal, both eyes and all related structures Neck Neck: normal visual inspection and trachea midline Chest Chest palpation & inspection: normal inspection of the chest Resp Effort & Inspection: normal respiratory effort, able to speak in complete sentences and symmetric chest movement Cardio Rate: regular rate GI Inspection: normal to inspection Palpation: soft and nontender General: No CVA tenderness Skin General: no rashes or lesions noted Neuro General: patient alert, patient awake, patient oriented x3 and CN's II-XI intact bilaterally Extrem General: normal to inspection Psych Appearance: grossly normal and well kempt Mental Status: mental status grossly normal Results POC Urinalysis w/Micro Office Urine Color ? Last Edit by Kadie Funes on 04/23/25 12:53 Office Urine Clarity ? Last Edit by Kadie Funes on 04/23/25 12:53 Office Urine Glucose Negative Last Edit by Kadie Funes on 04/23/25 12:53 Office Urine Ketones Negative Last Edit by Kadie Funes on 04/23/25 12:53 Office Urine Bilirubin Small (1+) Last Edit by Kadie Funes on 04/23/25 12:53 Office Urine Urobilinogen Negative Last Edit by Kadie Funes on 04/23/25 12:53 Off Ur Spec Carpenter 1.025 Last Edit by Kadie Funes on 04/23/25 12:53 Office Urine pH 6 Last Edit by Kadie Funes on 04/23/25 12:53 Office Urine Protein 2+ Last Edit by Kadie Funes on 04/23/25 12:53 Office Urine Blood Large Last Edit by Kadie Funes on 04/23/25 12:53 Office Urine Blood Hemolyzed Negative Last Edit by Kadie Funes on 5 12:53 Office Urine Nitrate Negative Last Edit by Kadie Funes on 04/23/25 12:53 Off Ur Leukocytes Positive Last Edit by Kadie Funes on 04/23/25 12:53 Off Ur WBC Microscopic ? Last Edit by Kadie Funes on 04/23/25 12:53 Off Ur RBC Microscopic ? Last Edit by Kadie Funes on 04/23/25 12:53 Off Ur Bacteria Microscopic ? Last Edit by Kadie Funes on 04/23/25 12:53 leuks 500 Coding Level of Care Code Off vis,est,level 4 Diagnoses Chronic bladder pain R39.82 Other specified disorders of bladder N32.89 Urinary tract infection N39.0 Pelvic pain R10.2 Assessment and Plan Assessment and Plan (1) Chronic bladder pain: Status: Acute (2) Other specified disorders of bladder: Status: Acute (3) Urinary tract infection: Status: Acute (4) Pelvic pain: Status: Acute Orders: Orders POC UA Automated w/Microscopy Today R31.0 - Gross hematuria Plan urine culture today, antibiotics pending results continue with surgery as scheduled increase the D-mannose to BID She has PFPT scheduled for next month Rx for suppositories 04/23/25 1310 <Electronically signed by Geneva Schilling MD> Date Geneva Schilling MD
--- NOTE | 2025-04-29 06:50 | PRE.ANES_ITS ---
ASA Classification* ASA Classification ASA Classification: 2 Assessment & Plan Anesthesia* Anesthesia Assessment Anesthesia Assessment: Discussed sedation and/or anesthesia options, risks, benefits, and alternatives with patient/parents/legal guardian/POA. Questions invited. The patient/parents/legal guardian/POA seems to understand and agrees to proceed with anesthesia plan. Reviewed the physical assessment, medical history, allergy history and patient home medications list prior to surgery/procedure/anesthetic and documented any changes. Performed airway and anesthesia risk assessments. Anesthesia Type Anesthesia Type: General (We will use a scopolamine patch as an adjuvant for nausea.) History Source History Obtained from:: Patient and Chart Anesthesia Focused Assessment* Temperature: 98.6 F Pulse Rate: 80 Blood Pressure: 105/62 Respiratory Rate: 12 Pulse Ox: 100 Oxygen Delivery Method: Room Air Airway Assessment Mouth opens: >3 cm Mallampati Score: III Teeth Condition: Missing (Patient has 1 missing tooth. Rest are tight.) Neck Range of motion (ROM): Full ROM Labs Anesthesia Preop lab: CBC WBC, (4.4-11.0) 5.9 K/mm3 04/19/25, 15:08 RBC, (4.2-5.4) 4.22 M/mm3 04/19/25, 15:08 Hgb, (12.0-15.0) 13.1 g/dL 04/19/25, 15:08 Hct, (37-47) 36.8 % L 04/19/25, 15:08 Plt Count, (150-450) 235 K/mm3 04/19/25, 15:08 CHEMISTRY Potassium, (3.3-5.1) 4.6 mmol/L 03/22/25, 17:05 Sodium, (133-145) 140 mmol/L 03/22/25, 17:05 Magnesium, (1.6-2.6) 2.3 mg/dL 01/26/23, 09:30 BUN, (4-19) 14 mg/dL 03/22/25, 17:05 Creatinine, (0.70-1.20) 0.98 mg/dL 03/22/25, 17:05 Glucose, (70-99) 86 mg/dL 03/22/25, 17:05 TSH, (0.358-3.74) 1.54 uIU/mL 04/05/22, 15:40 COAG PT, (11.7-14.9) 14.1 SECONDS 09/06/22, 10:22 HCG, Quant, (1-3) 5722 mIU/mL H 10/13/19, 16:18 Urine Test Negative Negative Today, Unknown Pre-Assessment Diagnosis/Proposed Procedure Planned Operative Procedure(s): (L) Laparoscopic, Left Ovarian Cystectomy, possible Oophorectomy, possible Salpingectomy (N/A) CYSTO, POSSIBLE BIOPSY W/FULGERATION Anesthesia History Anesthesia History - curbing stonecutter: Anesthesia History - curbing stonecutter Hx Hospitalization No 04/15/25 08:49 Any Problems With Anesthesia Yes: PONV 04/15/25 08:49 Cholinesterase deficiency No 04/15/25 08:49 You/Your Family Experience No 04/15/25 08:49 fever (hyperthermia) with Relationship Recent Exposure to Contagious No 04/29/25 06:28 Disease Does patient have nerve No 04/15/25 08:49 stimulator Patient instructed to have device shut off --Does patient have Pacemaker No 04/29/25 06:28 or ICD? When Was Last Pacemaker Check QUESTION #4 FULL TEXT: You/Your Family Experience fever (hyperthermia) with Anesthesia Last Oral Intake Last Oral intake: Last Oral Intake NPO since 00:00 04/29/25 06:28 Meds taken in AM with sips of No 04/29/25 06:28 water? Meds patient instructed to take am of surgery Any additional information?: Yes Meds taken in AM with sips of water?: No PONV PONV - curbing stonecutter: PONV - curbing stonecutter Female Yes 04/15/25 08:49 HX of Motion Sickness Yes 04/15/25 08:49 HX of N/V After Surgery Yes 04/15/25 08:49 Non-Smoker No 04/15/25 08:49 Duration of Surgery greater Yes 04/15/25 08:49 than 60 minutes Number of Risk Factors 4 04/15/25 08:49 PONV Score Severe Risk 04/15/25 08:49 Height & Weight Height & Weight: Anesthesia: Height & Weight Height 5 ft 2 in 04/29/25 06:28 Weight: 50.9 kg 04/29/25 06:28 Body Mass Index (BMI) 20.5 04/29/25 06:28 Respiratory Assessment Respiratory Assessment - curbing stonecutter: Respiratory Tract Infection Hx - curbing stonecutter Hx Respiratory Tract Infection Yes: IMPROVING, INSTRUCTED 04/15/25 08:[address] IS WORSENING Any additional information?: Yes Hx Respiratory Tract Infection: No STOP Sleep Apnea STOP Sleep Apnea - curbing stonecutter: STOP Sleep Apnea - curbing stonecutter Hx Hypertension Yes: DURING ONLY 04/15/25 08:49 Hx Sleep Apnea No 04/15/25 08:49 CPAP BIPAP Do you snore loudly (louder No 04/15/25 08:49 than talking or can be heard Do you often feel tired/ No 04/15/25 08:49 fatigued/ sleepy during daytime? Has anyone observed you stop No 04/15/25 08:49 breathing during sleep? STOP Results Negative 04/15/25 08:49 QUESTION #5 FULL TEXT : Do you snore loudly (louder than talking or can be heard through closed doors)? 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 Specify any problems Hx of Preganancy in last 3 No 04/15/25 08:49 Months Nurse Filling Out Transfusion MGRIFFITH 04/15/25 08:49 & Questions: Date: 04/15/25 04/15/25 08:49 Time: 08:53 04/15/25 08:49 Patient unable to answer at this time (ie. confused, unrespo /Reproduction History /Reproductive History - curbing stonecutter: /Reproductive Hx- curbing stonecutter Hx Now No 04/15/25 08:49 Gestational Age (in weeks): EDC: Hx Hx Para Hx Section SAB No 04/15/25 08:49 Active Medications Active Medications: Current Medications Generic Name Dose Route Start Last Admin Trade Name Freq PRN Reason Stop Dose Admin Cefazolin Sodium 2 gm/ Sodium 110 mls @ 200 mls/hr 04/29/25 07:30 Chloride IV 04/29/25 08:02 INTRAOP ONE Lactated Ringer's 1,000 mls @ 15 mls/hr 04/29/25 06:15 04/29/25 06:38 IV 15 mls/hr .Q48H WILFREDO Administration PFSH Medical History Anxiety Restless legs PONV (postoperative nausea and vomiting) Leg cramps Smoker Chronic bladder pain Depression Lesion of cervix Low grade squamous intraepithelial dysplasia Syncope Gastric reflux Constipation History of GI bleed PTSD (post-traumatic stress disorder) Marijuana use Anemia Vapes nicotine containing substance Bladder ulcer Dietary restriction Migraine Gestational hypertension History of depression History of anxiety Home Medications ?Medication ?Instructions ?Recorded ?Last Taken ?Type Lactobacillus acidophilus 250 500 mmu cells PO DAILY 0 09/18/23 04/27/25 History million cell capsule (Probiotic Acidophilus) d-mannose 500 mg capsule 1,000 mg PO DAILY 09/18/23 0 04/27/25 History levonorgestrel (Mirena) 1 device intrauterine ONCE 0 01/11/25 Unknown History ibuprofen 200 mg capsule 200 mg PO Q6H PRN pain 03/24 Unknown History cephalexin 250 mg capsule 250 mg PO QHS #90 caps 04/0204/27/25 Rx cyclobenzaprine 5 mg tablet 5 mg PO QHS PRN muscle spa sm #60 04/19/25 04/27/25 Rx tabs mirabegron 50 mg tablet,extended 50 mg PO QDAY 5 04/27/25 History release 24 hr (Myrbetriq) levofloxacin 500 mg tablet 500 mg PO QDAY 5 days #5 ta bs 04/26/25 04/28/25 Rx Allergy/AdvReac Type Severity Reaction Status Date / Time amitriptyline AdvReac Intermediate confusion Verified 04/29/25 06:26 Family History Grandmother Diabetes Breast cancer Grandfather Diabetes Lrldi-0-bwptzwclric deficiency Other Cancer Coagulation disorder Surgical History History of cystoscopy History of cystoscopy History of cystoscopy delivery delivered Social History Smoking Status: Current every day smoker (Patient smoked a vape today.) tobacco type: e-cigarettes Electronic Cigarette Use: with nicotine alcohol intake: never substance use type: does not use caffeine: Yes (rarely) what type of physical activity do you participate in: walking and other details: 20,000 steps per day seatbelt use: always do you feel safe at home: Yes additional social history: Boyfriend-Gerardo Goodson Patient works at [employer] Review of Systems (Anesthesia) ROS Narrative System reviewed and no additional complaints, except as documented.
--- NOTE | 2025-04-29 07:24 | HP.PCM_ITS ---
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 Required: No Allergies amitriptyline Adverse Reaction (Intermediate, Verified 03/24/25 13:19) confusion Medications ?Medication ?Instructions ?Recorded ?Confirmed ?Type Lactobacillus acidophilus 250 500 mmu cells PO DAILY 09/18/23 03/24/25 History million cell capsule (Probiotic Acidophilus) d-mannose 500 mg capsule 1,000 mg PO DAILY 09/18/23 03/24/25 Hist ory levonorgestrel (Mirena) 1 device intrauterine ONCE 01/11/2503/06 History sulfamethoxazole 800 1 tab PO BID #14 tabs 03/08/25 Rx mg-trimethoprim 160 mg tablet (Bactrim DS) hydrocodone-acetaminophen 5-325mg 1 tab PO Q6H PRN PRN Pain 3 days 5 03/24/25 Rx 5mg-325mg #10 TABLETS ibuprofen 200 mg capsule 200 mg PO Q6H PRN 03/24/25 03/24/25 Hist ory methenamine hippurate 1 gram tablet 1 g PO BID 03/24/25 03/24/25 History Post menopausal: No Patient : No : No PFSH Medical History Chronic bladder pain Depression Lesion of cervix Low grade squamous intraepithelial dysplasia Syncope Gastric reflux Constipation History of GI bleed PTSD (post-traumatic stress disorder) Marijuana use Anemia Easy bruising Vapes nicotine containing substance Bladder ulcer Dietary restriction Migraine Gestational hypertension History of depression History of anxiety Surgical History History of cystoscopy History of cystoscopy History of cystoscopy delivery delivered Family History Grandmother Diabetes Breast cancer Grandfather Diabetes Vpiwk-9-kkevbnfohfs deficiency Other Cancer Coagulation disorder Social History Smoking Status: Current every day smoker tobacco type: e-cigarettes Electronic Cigarette Use: with nicotine alcohol intake: never substance use type: does not use caffeine: Yes (rarely) what type of physical activity do you participate in: walking and other details: 20,000 steps per day seatbelt use: always do you feel safe at home: Yes additional social history: BoyfrienGarcia Goodson Patient works at [employer] ER FU per JV (see note) Details: The patient is a 30-year-old female presenting with an ovarian cyst that has increased in size and is causing discomfort. The cyst was initially measured at 4 cm x 2.5 cm x 2.4 cm on March 01 via ultrasound and has since grown to 5.3 cm x 4.3 cm x 2.2 cm. The patient reports persistent pain, even while sitting, and the cyst's growth suggests it may be located in the fallopian tube rather than the ovary. The cyst is suspected to be a serous cystadenoma, which is a common type of ovarian cyst that can continue to grow. The patient has not scheduled surgery yet, but surgical intervention is being considered due to the cyst's growth and associated pain. The surgical plan includes the possibility of a left ovarian cystectomy, salpingectomy, and potentially an oophorectomy if necessary. Attestation: Documentation on this patient encounter was supported using ambient scribe technology/ voice AI technology. The patient consented to recording for the purpose of documenting the encounter. Provider reviewed content of the generated note prior to signature. History 2 Elective abortions Hx Para 1 Spontaneous abortions 1 Hx # Term Pregnancies Ectopic pregnancies Hx # Pregnancies Multiple births # of living children 1 Past Pregnancies Del. Date Name GA/Weeks Outcome Route Bth Weight Gen Labor Lgth Anesthesia Del [facility] Provider FOB 06/06/20 Beck 38 live - full term C- section Male epidural [facility] Delivery Date: 06/06/20 Last [facility] ROS Const ROS Unobtainable: All systems reviewed & are unremarkable except as noted in H Resp Resp: Reports system reviewed and no additional complaints, except as documented; Denies cough GI GI: Reports as per HPI Psych Psych: Reports system reviewed and no additional complaints, except as documented Exam Const General: cooperative, healthy appearing, comfortable and no acute distress Resp Effort & Inspection: normal respiratory effort Skin General: no rashes or lesions noted Psych Appearance: grossly normal Speech and Movement: speech and movement normal Coding Level of Care Code Off vis,est,level 4 Diagnoses Complex cyst of left ovary N83.292 Acute left lower quadrant pain R10.32 Assessment and Plan Assessment and Plan (1) Complex cyst of left ovary: Status: Acute (2) Acute left lower quadrant pain: Status: Acute Plan Assessment and Plan 30-year-old female with a history of an ovarian cyst presenting with increased size and discomfort. The cyst's growth pattern suggests it may be located in the fallopian tube, raising the possibility of a serous cystadenoma. Surgical intervention is necessary due to the cyst's size and associated pain, with plans for a left ovarian cystectomy, salpingectomy, and potential oophorectomy if required. 1. Ovarian Cyst The patient will undergo a left ovarian cystectomy to address the growing cyst, which is causing significant discomfort. If the cyst is located in the fallopian tube, a salpingectomy will be performed to remove the tube. In the event of excessive bleeding or complications, an oophorectomy may be necessary to remove the ovary. The procedure will be performed laparoscopically, with preoperative instructions including the use of a body wash to reduce infection risk. I have discussed with the patient the risks, benefits, and alternatives of the procedure which include but are not limited to risks of anesthesia, bleeding, infection, possible damage to bowel, bladder, or surrounding vasculature which could lead to additional surgery to evaluate any complications. Patient agrees to procedure and wishes to proceed. ACOG/uptodate references given for additional information regarding procedure.
--- NOTE | 2025-04-29 07:24 | DCINST_ITS ---
Discharge Instructions DC O2, CPAP, BIPAP needs Home O2 Discharge instructions: No Dressing / Incision Discharge Activity: Return to Normal Activity, May Not Drive (for two weeks or while taking narcotic pain medications.), May Shower and May Take a Tub Bath (in 7 days) May resume sexual activity in: 1 week Weight Bearing Status: Full weight bearing Lifting Restrictions: 10 pounds for 1 week Dressing / Incision Call your doctor if your incision/area has: Sudden Increased Bleeding, Increased Pain/ Swelling, Foul Smelling Discharge and Swelling at the incision site Call your doctor if you observe: Fever of 101 or Higher, Using more than 1 pad per hour, Shortness of breath, Chest pain and Uncontrolled pain Suture Line Care: Avoid Pulling/Pushing and Avoid Pinching/Bending Change Dressing in: do not change dressing Remove Dressing in: 1 week (if present) Cleanse incision/area with: Keep Dressing Clean & Dry and - (after showering, dab dry) Follow Up Care Please Follow Up With: Nohelia Munroe DO When: Call to make an appointment with your doctor for a follow up incision check in 1-2 weeks. Test Results: Test results from this visit will be discussed in further detail at your follow- up appointment, if applicable. Discharge Plan Admission Primary Reason for Your Visit: laparoscopic surgery on ovarian cyst Attending Provider: Nohelia Munroe Primary Care Provider: Francia Lin Consulting Providers: Geneva Schilling Instructions Print Language: Macedonian Discharge Orders/Prescriptions Prescriptions: New ibuprofen 800 mg tablet 800 mg PO Q8H PRN (Reason: pain) Qty: 20 0RF oxycodone-acetaminophen [Percocet] 5-325 mg tablet 1 tab PO Q4H PRN (Reason: pain) 7 Days Qty: 10 0RF Continued Mirena 21 mcg/24hr (up to 8 yrs) 52 mg intrauterine device 1 device intrauterine ONCE Rx Instructions: as a single dose ibuprofen 200 mg capsule 200 mg PO Q6H PRN (Reason: pain) mirabegron [Myrbetriq] 50 mg tablet extended release 24 hr 50 mg PO QDAY d-mannose 500 mg capsule 1,000 mg PO DAILY Probiotic Acidophilus 250 million cell capsule 500 mmu cells PO DAILY cephalexin 250 mg capsule 250 mg PO QHS Qty: 90 0RF Rx Instructions: Start after completion of cephalexin 500 mg cyclobenzaprine 5 mg tablet 5 mg PO QHS PRN (Reason: muscle spasm) Qty: 60 1RF levofloxacin 500 mg tablet 500 mg PO QDAY 5 Days Qty: 5 0RF Referrals / Follow Up: Francia Lin MD [Primary Care Provider, Internal Medicine] Disposition Disposition (needs filled in before D/C Order can be placed): Home, Self Care
[2025-04-29] MEDS: Lactated Ringers 1,000 ML 1000 ML IV (07:29)
[2025-04-29] MEDS: Cefazolin 1 GM/5 ML Vial 2 GM IV (07:29)
--- NOTE | 2025-04-29 07:30 | BLA_PTH ---
PATIENT: ELIANA GUILLEN LOC: [facility] [place] U#:[id number] AGE/SX: 30/F ROOM: RE04/29/[address]: Dr. Nohelia Munroe DO : 1995 BED: DIS: 04/29/2025 SPEC #: [id number] RECD: 04/29/25 09:29 STATUS: JERAMY REYves #: [id number] GRISEL: 04/29/25 07:[address]: Nohelia Munroe DEPT: SURGICAL PATHOLOGY RECD BY: Dyllan Dominguez ENTERED: 04/29/25 13:58 SP TYPE: BLADDER BX OTHR DR: MD Dr. Francia Moore MD Tissues: A - OVARIAN CYST B - Urinary bladder, NOS Procedures: Surgery Specimen Level IV HEADER OPERATION: Laparoscopic, right ovarian cystectomy PRE-OP DIAGNOSIS: Complex cyst of left ovary, acute left lower quadrant pain TISSUE SUBMITTED: A- Right ovarian cyst wall fragments, B- Bladder biopsy MICROSCOPIC DIAGNOSIS A. Ovary, right, laparoscopic right ovarian cystectomy: * Cyst wall lined by benign cuboidal/foamy epithelium - see note and Comment. Note: Serous or mucinous lining epithelium is not identified. The findings are compatible with a corpus luteum cyst. B. Bladder, biopsy: * Polypoid granulation tissue with marked active chronic inflammation, essentially devoid of urothelium - see note. Note: The histologic findings are consistent with interstitial cystitis with Hunner lesion, correlating with the noted clinical impression. COMMENT Selected slides/images (part A) were reviewed in intradepartmental consultation by Dr Gopi Victor ([facility] pathology division, [facility]). MICROSCOPIC DESCRIPTION Slides are reviewed. GROSS DESCRIPTION Received in 2 formalin containers labeled with the patient's name and date of . Designated as: A. Right ovarian cyst wall fragments is a 1.5 x 0.8 x 0.3 cm aggregate of pink-red, irregular, semimembranous tissue fragments. Entirely submitted in 1 cassette. B. Bladder BX is a 0.7 x 0.4 x 0.2 cm irregular, [place] and focally erythematous tissue fragment. Entirely submitted in 1 cassette. [place] 04/29/2025PT:[id number]
[2025-04-29] MEDS: Lidocaine 1% (5 ml sdv) 5 ML Vial IV (07:34)
[2025-04-29] MEDS: fentaNYL 100 MCG/2 ML Ampul IV (07:34)
--- NOTE | 2025-04-29 08:31 | PCM.OPRPT ---
Multi Select Codes Urinary/Genital Urinary/Genital CPT Codes: 80667 Laproscopic BS/O (laparoscopic right ovarian cystectomy ) Operative Report (Standard) Operative Information Date of Procedure: 04/29/25 Pre-Operative Diagnosis: persistent ovarian cyst, pelvic pain Post-Operative Diagnosis: persistent ovarian cyst, pelvic pain Surgery/Procedure Performed: laparoscopic right ovarian cystectomy wrecker operator: Yes Cane Flume Watcher: Brandy Manriquez Tasks completed by first aid instructor: Closing, Trocar and Other (running camera ) Additional congressional assistant?: No Type of Anesthesia: General RN Documented Start/Stop Times: Operation Date: 04/29/25 07:30 Case Time Into Pre-Op 04/29/25 05:59 Out of Pre-Op 04/29/25 07:26 Anesthesia Start 04/29/25 07:29 Into Room 04/29/25 07:29 Procedure Start 04/29/25 07:51 Procedure Start Time: 07:29 Procedure Stop Time: 08:55 Select all DRAINS/GRAFTS/IMPLANTS that apply: None Estimated Blood Loss: 5 cc Specimen collected: Yes Description of specimen(s) removed: ovarian cyst wall Description of surgery: The patient was brought to the operating room and general anesthesia was found to be adequate. She was prepped and draped in normal sterile fashion her legs were placed in stirrups a weighted speculum was placed in the vagina the anterior lip of the cervix was grasped with single-tooth tenaculum and IUD was noted in place. A sponge stick was placed in the vagina gloves were changed and attention was turned towards the abdomen. An infraumbilical skin incision was made with a scalpel after cord percent Marcaine injection and a 5 mm trocar was inserted into the abdomen under direct visualization. There was noted to be an omental adhesion to the anterior abdominal wall that was left alone and moved around as needed. Survey of the abdomen showed that the ultrasound was incorrect and noting the laterality of the ovarian cyst the ovarian cyst was noted on the right side not the left side. The ovarian cyst appeared to be simple appearing. A left lower quadrant and suprapubic trocar were placed both 5 mm size. A stab incision was made with sterile laparoscopic scissors. Clear fluid drained from the ovarian cyst. The incision was extended slightly to allow us to grasp of the cyst wall. The cyst wall was very adherent to the ovary and very difficult to remove from the cyst. Fragments of the ovarian cyst wall were able to be removed and at least passed off for pathology analysis however the entire cyst wall was unable to be peeled from the ovary as this was causing bleeding. Due to her young age the decision was made to apply hemoblast and stop manipulation of the ovary. Irrigation was performed and excellent hemostasis was noted. Survey of the abdomen showed normal bowel normal appendix normal liver normal left ovary normal left fallopian tube normal right fallopian tube normal uterus. This time the trocars were removed from the abdomen this sites were closed with a 4-0 Monocryl subcuticular stitch and sealed with surgical glue. Dr. Schilling then entered the room to perform a cystoscopy and her portion of the surgery will be dictated separately Surgical Findings: Right ovarian cyst Complications Complications: No Admit VTE Documentation VTE Present on Admission: No VTE Mechan Device Prophylaxis: SCD's VTE Pharm Prophylaxis ordered?: No
--- NOTE | 2025-04-29 09:06 | DCINST_ITS ---
Discharge Instructions Diet Discharge Diet: No restrictions Activity Discharge Activity: Return to Normal Activity May resume sexual activity in: 1 week Weight Bearing Status: Full weight bearing Dressing / Incision Call your doctor if your incision/area has: Sudden Increased Bleeding, Increased Pain/ Swelling, Foul Smelling Discharge and Swelling at the incision site Call your doctor if you observe: Fever of 101 or Higher, Inability to urinate, Inability to have a bowel movement, Using more than 1 pad per hour, Shortness of breath, Chest pain and Uncontrolled pain Suture Line Care: Avoid Pulling/Pushing and Avoid Pinching/Bending Cleanse incision/area with: Keep Dressing Clean & Dry and - (after showering, dab dry) Follow Up Care Please Follow Up With: Nohelia Munroe DO When: also Dr. Schilling Test Results: Test results from this visit will be discussed in further detail at your follow- up appointment, if applicable. Discharge Plan Admission Primary Reason for Your Visit: laparoscopic surgery on ovarian cyst Attending Provider: Nohelia Munroe Primary Care Provider: Francia Lin Consulting Providers: Geneva Schilling Instructions Print Language: Tajik Discharge Orders/Prescriptions Prescriptions: New ibuprofen 800 mg tablet 800 mg PO Q8H PRN (Reason: pain) Qty: 20 0RF oxycodone-acetaminophen [Percocet] 5-325 mg tablet 1 tab PO Q4H PRN (Reason: pain) 7 Days Qty: 10 0RF Continued Mirena 21 mcg/24hr (up to 8 yrs) 52 mg intrauterine device 1 device intrauterine ONCE Rx Instructions: as a single dose ibuprofen 200 mg capsule 200 mg PO Q6H PRN (Reason: pain) mirabegron [Myrbetriq] 50 mg tablet extended release 24 hr 50 mg PO QDAY d-mannose 500 mg capsule 1,000 mg PO DAILY Probiotic Acidophilus 250 million cell capsule 500 mmu cells PO DAILY cephalexin 250 mg capsule 250 mg PO QHS Qty: 90 0RF Rx Instructions: Start after completion of cephalexin 500 mg cyclobenzaprine 5 mg tablet 5 mg PO QHS PRN (Reason: muscle spasm) Qty: 60 1RF levofloxacin 500 mg tablet 500 mg PO QDAY 5 Days Qty: 5 0RF Referrals / Follow Up: Francia Lin MD [Primary Care Provider, Internal Medicine] Disposition Disposition (needs filled in before D/C Order can be placed): Home, Self Care
--- NOTE | 2025-04-29 09:06 | PCM.POST.ANE ---
Anesthesia: Postop Eval I Current Vital Signs Temperature: 97.8 F Pulse Rate: 99 Blood Pressure: 123/70 Respiratory Rate: 16 Pulse Ox: 100 Assessment Airway patent: Yes Spontaneous unlabored respirations: Yes nausea: No Vomiting: No Anesthesia Complication: No Fluid Hydration Crystalloid volume administer (ml): 1,000 Total IV fluid infused: 1,000 Progress Note Anesthesia document: Postop Eval 1 completed: Yes
--- NOTE | 2025-04-29 09:07 | PCM.OPRPT ---
Operative Report (Standard) Operative Information Date of Procedure: 04/29/25 Pre-Operative Diagnosis: Interstitial cystitis, squamous metaplasia, bladder pain and recurrent UTI Post-Operative Diagnosis: Same, Hunner's ulcer x 3 Surgery/Procedure Performed: Cystoscopy with bladder biopsy and fulguration statement clerks supervisor: No Type of Anesthesia: General RN Documented Start/Stop Times: Operation Date: 04/29/25 07:30 Case Time Into Pre-Op 04/29/25 05:59 Out of Pre-Op 04/29/25 07:26 Anesthesia Start 04/29/25 07:29 Into Room 04/29/25 07:29 Procedure Start 04/29/25 07:51 Procedure End 04/29/25 08:55 Anesthesia End 04/29/25 09:01 Out of Room 04/29/25 09:01 Procedure Start Time: 08:30 Procedure Stop Time: 08:55 Select all DRAINS/GRAFTS/IMPLANTS that apply: None Estimated Blood Loss: 5cc Specimen collected: Yes Description of specimen(s) removed: Bladder biopsy Description of surgery: The patient is a 30-year-old female with interstitial cystitis/chronic bladder pain syndrome with squamous metaplasia and urinary tract infections. She presents for cystoscopy with possible bladder biopsy and fulguration, possible hydrodistention. Informed consent was obtained. She was taken to the operating room and placed on the operating room table. Anesthesia monitored the head, neck, airway, IV access and vital signs throughout the case. Once anesthesia was appropriately administered, she was prepped and draped in usual sterile fashion. Dr. Taylor performed her part of the procedure. At this time the case was turned over to mo. She was placed into dorsolithotomy position. The cystoscope was inserted through the urethra under direct visualization into the urinary bladder. The bladder mucosa was visualized in its entirety finding and area of squamous metaplasia without inflammation, erythema or growth encompassing the trigone. There were 3 areas of Hunner ulceration identified. 1 on the posterior bladder wall, 1 on the left lateral wall and 1 on the right lateral wall. The largest ulcer was on the left lateral wall was approximately 1.5 cm in diameter. The smallest ulcer was on the right and was just beginning with 5 mm diameter. The one at the posterior bladder wall was approximately 1 cm in diameter. Biopsies were taken of the posterior bladder wall and the left lateral bladder wall. All 3 ulcerations were fulgurated for hemostatic control and tissue treatment. At this time the patient's bladder was emptied and the cystoscope was removed. Dr. Taylor at this time took over for repeat laparoscopy. Surgical Findings: 3 ulcerations consistent with Hunner's ulcers Complications Complications: No Admit VTE Documentation VTE Present on Admission: Yes VTE Mechan Device Prophylaxis: SCD's VTE Pharm Prophylaxis ordered?: No Reason prophylaxis not ordered: Treatment Not Indicated
--- NOTE | 2025-04-29 10:49 | POSTOPAN2_ITS ---
Anesthesia Postop Eval I Sum Postop Eval Completion status Anesthesia document: Postop Eval 1 completed: Yes Anesthesia Postop Eval I Summary Anesthesia Postop Eval I Summary: Anesthesia Postop Eval I: Assessment Summary Airway patent Yes 04/29/25 09:06 SUPERVISING CHEF.EDMUND Spontaneous unlabored Yes 04/29/25 09:06 SUPERVISING CHEFCALEB respirations Mental status nausea No 04/29/25 09:06 SUPERVISING CHEF.EDMUND Vomiting No 04/29/25 09:06 SUPERVISING CHEFCALEB Anesthesia Postop Eval I: Fluid Summary Crystalloid volume administer 1,000 04/29/25 09:06 SUPERVISING CHEF.EDMUND (ml) Colloids volume administered ( ml) Blood Product volume administered (ml) Total IV fluid infused 1,000 04/29/25 09:06 SUPERVISING CHEFCALEB Anesthesia Postop Eval I: Summary Notes Anesthesia Complication No 04/29/25 09:06 SUPERVISING CHEFCALEB Anesthesia Complication Comment: Post-operative progress note Anesthesia: Postop Eval II Evaluation Mental status: Awake and Calm Pain Level: 1 nausea: No Vomiting: No Complications Anesthesia Complication: No
--- NOTE | 2025-04-29 10:49 | PCM.POSTANE2 ---
Anesthesia Postop Eval I Sum Postop Eval Completion status Anesthesia document: Postop Eval 1 completed: Yes Anesthesia Postop Eval I Summary Anesthesia Postop Eval I Summary: Anesthesia Postop Eval I: Assessment Summary Airway patent Yes 04/29/25 09:06 MAINTENANCE INSTRUCTOR.EDMUND Spontaneous unlabored Yes 04/29/25 09:06 MAINTENANCE INSTRUCTORCALEB respirations Mental status nausea No 04/29/25 09:06 MAINTENANCE INSTRUCTOR.EDMUND Vomiting No 04/29/25 09:06 MAINTENANCE INSTRUCTORCALEB Anesthesia Postop Eval I: Fluid Summary Crystalloid volume administer 1,000 04/29/25 09:06 MAINTENANCE INSTRUCTOR.EDMUND (ml) Colloids volume administered ( ml) Blood Product volume administered (ml) Total IV fluid infused 1,000 04/29/25 09:06 MAINTENANCE INSTRUCTORCALEB Anesthesia Postop Eval I: Summary Notes Anesthesia Complication No 04/29/25 09:06 MAINTENANCE INSTRUCTORCALEB Anesthesia Complication Comment: Post-operative progress note Anesthesia: Postop Eval II Evaluation Mental status: Awake and Calm Pain Level: 1 nausea: No Vomiting: No Complications Anesthesia Complication: No
== END 2025-04-29 10:30 | disposition home or self-care (01) ==
LOC: SDC 05:45 → AC 05:46
PROVIDERS: Urology; PCP Internal Medicine; Referring Provider Obstetrics & Gynecology; Visit Provider Obstetrics & Gynecology
PROC: (CPT 58720; principal; 2025-04-29 07:15)
PROC: 0TBB8ZX Excision of Bladder, Via Natural or Artificial Opening Endoscopic, Diagnostic (ICD-10-PCS; CPT 52234; 2025-04-29 07:15)
DX: D41.4 Neoplasm of uncertain behavior of bladder (principal); N83.201 Unspecified ovarian cyst, right side; N30.10 Interstitial cystitis (chronic) without hematuria; F17.290 Nicotine dependence, other tobacco product, uncomplicated; K21.9 Gastro-esophageal reflux disease without esophagitis; R31.0 Gross hematuria; N32.89 Other specified disorders of bladder; Z97.5 Presence of (intrauterine) contraceptive device; N83.11 Corpus luteum cyst of right ovary
CPT/HCPCS: 58662; 52234; 52204; 00912; 81025; 85027; 86850; 86900; 86901; 88305; J2405

== ENCOUNTER → 2025-06-17 | Outpatient (CLI) | payer MEDICAID, SELFPAY | END | disposition home or self-care (01) | LOC: LABSPEC 16:06 | PROVIDERS: PCP Internal Medicine; Visit Provider Nurse Practitioner Family | DX: Z12.4 Encounter for screening for malignant neoplasm of cervix (principal) | CPT/HCPCS: 88175; G0145 ==

== ENCOUNTER → 2025-06-28 | Outpatient (CLI) | payer MEDICAID, SELFPAY ==
--- NOTE | 2025-06-28 09:26 | BI_ITS ---
EXAM: DIAG MAMM W/CAD, BILAT N/A CLINICAL HISTORY: F, Age 30 y/o , BREAST LUMP. Right breast palpable mass. Evaluate. TECHNIQUE: Procedure Code: [id number] Modality: MG Procedure: DIAG MAMM W/CAD, BILAT. COMPARISON: Prior exam(s) dated mammogram study dated 06/25/2024. FINDINGS: TISSUE DENSITY: The breasts are extremely dense, which lowers the sensitivity of mammography. Bilateral Breast Mammographic Findings: A radiopaque marker is placed over the left breast palpable abnormality which is located in the medial inferior, far posterior aspect of the breast. There is no mammographic abnormality to correlate. Due to the far posterior location of the palpable abnormality and the dense breast tissue, an underlying mass could correspond. Further workup with ultrasound will be performed for further evaluation. No significant masses, calcifications or other abnormalities are identified in the right breast. BI/DIAG MAMM W/CAD, BILAT IMPRESSION: A radiopaque marker is placed over the left breast palpable abnormality which i s located in the medial inferior, far posterior aspect of the breast. There is no mammographic abnormality to correlate. Due to the far posterior location of the palpable abnormality and the dense breast tissue, an underlying mass could correspond. Further workup with ultrasound will be performed for further evaluation. Ultrasound will be performed for further evaluation. OVERALL FINAL ASSESSMENT BI-RADS 0: INCOMPLETE - NEED ADDITIONAL IMAGING EVALUATION. RECOMMENDATION: Ultrasound Recommended Additional Recommendation none A letter with findings and recommendations will be mailed to the patient. Reading Location: [id number]
--- NOTE | 2025-06-28 09:26 | US_ITS ---
PROCEDURE: BREAST LIMITED UNILATERAL N/A REASON FOR EXAM: F, Age 30 y/o , BREAST LUMP COMPARISON: Mammograms dated 06/28/2025 and 06/25/2024 . TECHNIQUE: Procedure Code: USBRSTLIMIT Modality: US Procedure: BREAST LIMITED UNILATERAL FINDINGS: There is a benign-appearing hypoechoic mass in the right breast, located in the lower inner quadrant, measuring 1.2 x 0.6 x 0.4 cm. This mass has an echogenic component. The mass is wider than it is tall and produces no posterior shadowing. It is overlying a rib. The mass is located approximately 3 mm below the dermis. The mass is most compatible with a benign lymph node. This mass does correlate to the palpable abnormality. No suspicious masses are seen to suggest malignancy. US/Breast Limited Unilateral IMPRESSION: There is a benign-appearing hypoechoic mass in the right breast, located in the lower inner quadrant, measuring 1.2 x 0.6 x 0.4 cm. This mass has an echogenic component. The mass is wider than it is tall a nd produces no posterior shadowing. It is overlying a rib. The mass is located approximately 3 mm below the dermis. The mass is most compatible with a benign lymph node. This mass does correlate to the palpable abnormality. No suspicious masses are seen to suggest malignancy. BI-RADS 2: BENIGN RECOMMENDATION: OTHER Patient should return at the age of 41 for routine yearly screening mammography. Reading Location: [id number]
== END | disposition home or self-care (01) ==
LOC: OPBI 09:25
PROVIDERS: PCP Internal Medicine; Referring Provider Nurse Practitioner Family; Visit Provider Nurse Practitioner Family
DX: N63.14 Unspecified lump in the right breast, lower inner quadrant (principal)
CPT/HCPCS: 77062; 76642; 77066; G0279